=== PATIENT | male | born 1960 | race Caucasian/White ===

== ENCOUNTER → 2016-11-06 | Day surgery (SDC) | payer BC ==
[2016-10-22 13:25] VITALS: BMI 33.0
--- NOTE | 2016-10-22 13:55 | PAT Medication Instructions ---
Service Date Oct 22, 2016. Current Home Medication List Alprazolam (Xanax), 0.5 MG PO Q6H PRN for Anxiety Amlodipine (Norvasc), 5 MG PO QAM Citalopram Hydrobromide (Celexa), 1 TAB PO QAM Fenofibrate (Tricor ), 1 TAB PO QAM Hctz/Losartan (Hyzaar 25MG/100MG), 1 TAB PO QAM Omeprazole (Prilosec), 40 MG PO QAM Rosuvastatin Calcium (Crestor), 10 MG PO QAM Medication Instructions For Your Scheduled Surgery - Hold the following medications the morning of surgery: Hctz/Losartan (Hyzaar 25MG/100MG), 1 TAB PO QAM Fenofibrate (Tricor ), 1 TAB PO QAM - Take the following medications the morning of surgery with a sip of water: Rosuvastatin Calcium (Crestor), 10 MG PO QAM Omeprazole (Prilosec), 40 MG PO QAM Alprazolam (Xanax), 0.5 MG PO Q6H PRN for Anxiety (if needed) Citalopram Hydrobromide (Celexa), 1 TAB PO QAM Amlodipine (Norvasc), 5 MG PO QAM - Take the following medications as scheduled the night before surgery: Alprazolam (Xanax), 0.5 MG PO Q6H PRN for Anxiety (if needed) If you have any questions please call us at [phone] (Ann Nobles PA-C) or [phone] or [phone]
[2016-10-22 14:48] LABS: BASO % 0.5 %; BASO ABS # 0.03 K/uL (0-0.2); COMPLETE YES; HEMATOCRIT 43.2 % (42-52); IG% 0.2 %; LYMPH % 19.7 %; LYMPH ABS # 1.19 K/uL (1.2-3.4); MEAN CELL VOLUME 89.4 fL (80-100); MEAN CORPUSCULAR HEMOGLOBIN 32.7 pg (25-34); MEAN CORPUSCULAR HGB CONC 36.6 g/dl (32-36); MONO % 6.6 %; PLATELET COUNT 177 K/uL (130-400); RED BLOOD COUNT 4.83 M/uL (4.7-6.1); WHITE BLOOD COUNT 6.03 K/uL (4.8-10.8)
[2016-10-22 14:53] LABS: URINE APPEARANCE CLEAR (CLEAR); URINE BILIRUBIN NEG (NEG); URINE COLOR YELLOW; URINE NITRITE NEG (NEG); URINE PH 7.5 (4.5-7.5); URINE SPECIFIC GRAVITY 1.013 (1.000-1.030); UROBILINOGEN NEG (NEG)
[2016-10-22 14:56] LABS: MANUAL MICROSCOPIC REQUIRED? NO; REVIEW REQ? NO
[2016-10-22 15:25] LABS: BUN/CREATININE RATIO 12.4 (10-20); CALCIUM 9.2 mg/dl (8.5-10.1); POTASSIUM 3.5 mmol/L (3.5-5.1)
[~2016-11-06] VITALS: Ht 188 cm; Wt 116.2 kg
[~2016-11-06] MED LIST: ALBUT/IPRATROP 3MG/0.5MG NEB 3 ML VIAL ONE; ALFU10TA30 PO; ALPR-411 PO; AMLO-110 PO; ATROPINE SULFATE 0.1 MG/ML 5ML SYR IV PRN; CIPR1TAB11 PO; CIPROFLOXACIN / D5W 400 MG IV SCH; CITA10TA8 PO; CITA20TA9 PO; CONRAY 60% 50 ML VIAL INSTIL ONE; CRS/10 PO; DEXAMETHASONE SOD INJ 4 MG/ML VIAL ONE; EpHEDrine SULFATE INJ 50 MG/ML AMP IV PRN; FENO145T26 PO; FENTANYL CITRATE INJ 50 MCG/1 ML 2 ML VIAL IV PRN; FENTANYL CITRATE INJ 50 MCG/1 ML 2 ML VIAL ONE; FLUMAZENIL 0.1 MG/1 ML 10 ML VIAL IV PRN; GLYCOPYRROLATE INJ 0.2 MG/ML VIAL ONE; HYDROmorphone INJ 2 MG/ML SYR/VIAL IV PRN; HYZ/10015 PO; LABETALOL HCL IV 5 MG/ML 20ML IV PRN; LABETALOL HCL IV 5 MG/ML 20ML ONE; LACTATED RINGER'S 1000ML 1,000 ML IV SCH; LIDOCAINE HCL 2% 2 ML VIAL (20MG/ML) ONE; MEPERIDINE HCL 25 MG/ML CARP IV PRN; MIDAZOLAM HCL 1 MG/ML 2ML VIAL ONE; NALOXONE HCL 0.4 MG/1 ML VIAL/CARP IV PRN; NEOSTIGMINE METHYLSULFATE 5 MG/5 ML SYR ONE; OMEP40CA PO; ONDANSETRON INJ 2 MG/ML 2 ML VIAL IV PRN; ONDANSETRON INJ 2 MG/ML 2 ML VIAL ONE; OXYC-57 PO; OXYCODONE/ACETAMINOPHEN 5-325 TAB PO PRN; PHENYLEPHRINE 100MCG/ML 5ML SYR IV PRN; PROPOFOL IV EMULSION 10 MG/ML 20 ML VIAL IV ONE; PSYL0.524; PSYL48.59; ROCURONIUM BROMIDE 10 MG/ML 5 ML VIAL ONE; TAMS0.4C38 PO; prednisone PO
[2016-11-06 06:00] VITALS: BP 141/80; PULSE 87; TEMP 36.6; O2SAT 94; Ht 188 cm; Wt 116.2 kg
--- NOTE | 2016-11-06 07:26 | History & Physical Bridge Note ---
H&P Re-Evaluation Bridge Note: I have examined the patient, reviewed the History & Physical and in the interval since the performance of the History & Physical I have noted the following changes of clinical significance: No changes noted
--- NOTE | 2016-11-06 09:33 | [facility] Post Operative Brief Note ---
Immediate Operative Summary Operative Date Nov 06, 2016. Pre-Operative Diagnosis Prostate cancer Post-Operative Diagnosis Same as preoperative diagnosis Procedure(s) Performed Volume/Brachy Therapy Surgeon Dr. Gaudencio Rizzo Fresh Food Manager Surgeon(s) Dr. Cristofer Cottrell Estimated Blood Loss 0ml Findings small prostate Specimens No pathology specimens per surgeon
--- NOTE | 2016-11-06 09:37 | Discharge Instructions ---
Discharge Instructions Visit Reason for Visit: Prostate Cancer Discharge Discharge Diagnosis / Problem: prostate cancer Discharge Goals Goal(s): Therapeutic intervention Activity Recommendations Activity Limitations: per Instructions/Follow-up section (see radiation saftey sheet you get in radiation oncology/take it easy today) Anesthesia . Post Anesthesia Instructions: If you have had General Anesthesia or IV Sedation: * Do not drive today. * Resume driving when surgeon permits. * Do not make important decisions or sign legal documents today. * Call surgeon for: 1. Temperature elevations greater than 101 degrees F. 2. Uncontrollable pain. 3. Excessive bleeding. 4. Persistent nausea and vomiting. 5. Medication intolerance (nausea, vomiting or rash). * For nausea and vomiting use only clear liquids such as: tea, soda, bouillon until nausea subsides, then gradually increase diet as tolerated. * If you have any concerns or questions, call your surgeon's office. If physician is unavailable and it is an emergency, call 911 or go to the nearest emergency room. . Diet Recommendations Recommended Home Diet: resume previous diet Procedures Procedures Performed: Volume/Brachy Therapy Pending Studies Studies pending at discharge: yes List of pending studies: pt to go to radiation oncology befor going home Medical Emergencies . Who to Call and When: Medical Emergencies: If at any time you feel your situation is an emergency, please call 911 immediately. . Non-Emergent Contact Non-Emergency issues call your: Urologist . . "Provider Documentation" section prepared by Gaudencio Rizzo. [facility] Drug Monitoring Program Search Results: patient reviewed within database
--- NOTE | 2016-11-06 09:39 | DIAGNOSTIC IMAGING REPORT ---
FLUOROSCOPIC IMAGE OF THE PELVIS CLINICAL HISTORY: BRACHYTHERAPY FLUOROSCOPY TIME: 2 seconds. FINDINGS: A single fluoroscopic image demonstrates a catheter within the bladder with contrast within the bladder. There are brachytherapy seeds which project over the expected location of the prostate. IMPRESSION: Fluoroscopic image demonstrating placement of brachytherapy seeds. Electronically signed by: Lucius Sweeney M.D. 11/06/2016 9:37 AM Dictated Date/Time: 11/06/2016 9:36 AM
--- NOTE | 2016-11-06 10:07 | Anesthesiology Progress Note ---
Anesthesia Post Op Note Date & Time Nov 06, 2016 at 10:06 Vital Signs Pain Intensity: 0 Vital Signs Past 12 Hours Date Time Temp Pulse Resp B/P Pulse Ox O2 Delivery O2 Flow Rate FiO2 11/06/16 10:00 63 16 120/78 92 Room Air 11/06/16 09:51 62 16 130/78 97 Mask 10 11/06/16 09:41 67 16 111/69 100 Mask 10 11/06/16 09:33 36.8 73 16 123/84 99 Mask 10 11/06/16 06:00 36.6 87 18 141/80 94 Room Air Notes Mental Status: alert / awake / arousable, participated in evaluation Pt Amnestic to Procedure: Yes Nausea / Vomiting: adequately controlled Pain: adequately controlled Airway Patency, RR, SpO2: stable & adequate BP & HR: stable & adequate Hydration State: stable & adequate Anesthetic Complications: no major complications apparent
[2016-11-06 10:15] VITALS: BP 111/69; PULSE 61; TEMP 36.6; O2SAT 98
[2016-11-06 10:45] VITALS: BP 121/70; PULSE 56; TEMP 36.6; O2SAT 98
[2016-11-06 11:15] VITALS: BP 110/64; PULSE 64; TEMP 36.7; O2SAT 97
--- NOTE | 2016-11-08 13:22 | OPERATIVE REPORT ---
DATE OF OPERATION: 11/06/2016 PREOPERATIVE DIAGNOSIS: Biopsy stage T2c, PSA 4.65, [place] score 3+4 adenocarcinoma of the prostate. POSTOPERATIVE DIAGNOSIS: Biopsy stage T2c, PSA 4.65, Helen score 3+4 adenocarcinoma of the prostate. PROCEDURE: Transperineal prostate brachytherapy with live dosimetry. FINDINGS: 16.5 mL gland. SURGEON: Dr. Rizzo. PHYSICIST: Wm Ernandez. RADIATION ONCOLOGIST: Dr. Paris. ANESTHESIA: General. DRAINS: Temporary Harrison catheter in the bladder. COMPLICATIONS: None. SPECIMENS: None. INDICATIONS: The patient has been diagnosed with an adenocarcinoma of the prostate and has elected to undergo transperineal brachytherapy as part of his treatment and is being brought in now for the procedure. OPERATION AND FINDINGS: The patient was correctly identified and brought to the outpatient surgery suite. After the induction of an adequate level of anesthesia, the patient was placed in the dorsal lithotomy position. The patient's lower abdomen, genitalia, and perineum were then prepped with Hibiclens. A Harrison catheter was then inserted per the urethra into the bladder using usual sterile technique and the urine was drained and then 100 mL of mixture of saline and iodinated contrast material was instilled through the Harrison into the bladder. Aerated gel was then placed within the lumen of the catheter, and the catheter was then plugged. The patient's scrotum was then taped upward using a Steri-Drape to keep it out of the way of the perineum. A transrectal ultrasound probe was then gently inserted into the patient's rectum and attached to the brachytherapy sled, and adjustments were made to the brachytherapy sled using the template projected on the ultrasound screen to get the transrectal probe and the image of the prostate into the proper position. After getting the probe adjusted properly, the prostate was scanned from its base to its apex with the images being transmitted to the treatment planning computer. While the radiation oncologist and physicist were performing a live implant plan, empty needles were placed through the template and positioned in the prostate around the entire periphery of the prostate. Each needle was spaced approximately 1 cm apart from its neighbor and again this was done circumferentially around the prostate. At this point, Dr. Paris used a [place] applicator to place the seeds into the prostate through these peripherally placed needles with the number and position of the seeds based on the plan that had just been created. This was done live so live dosimetry was being calculated with each seed placement. After the peripheral seeds were placed and all the peripheral needles removed, the radiation oncologist and physicist then planned for the central needles and these needles were placed in their proper positions based on the plan. After completing this portion, again the case was turned over to Dr. Paris for placement of the central seeds. A total number of 14 needles were used to implant 43 CS 131 seeds. After completing the implant, a fluoroscopic image was taken to check to make sure that there were no seeds placed within the bladder and a final picture was taken of this. One final inspection was then done looking at the plan and the seed implant and after completion of this final inspection the transrectal probe was removed. The patient's bladder was drained through the Harrison catheter. A Joy counter was used to check for any radioactivity remaining in the needles and in the urine. The Harrison catheter was then left indwelling. The patient's perineum was then washed and dried, and an antibiotic ointment was applied. The patient tolerated the procedure well and was transferred to the Recovery Room in stable condition. I attest to the content of the Intraoperative Record and any orders documented therein. Any exceptio ns are noted below.
== END | disposition home or self-care (01) ==
LOC: C.ACU 05:43
PROVIDERS: ATTEND Urology
DX: C61 Malignant neoplasm of prostate (principal); R97.20 Elevated prostate specific antigen [PSA]; E78.00 Pure hypercholesterolemia, unspecified; I10 Essential (primary) hypertension; F17.200 Nicotine dependence, unspecified, uncomplicated; Z83.3 Family history of diabetes mellitus; Z82.49 Family history of ischemic heart disease and other diseases of the circulatory system

== ENCOUNTER → 2016-11-13 | Outpatient (CLI) | payer BC ==
[~2016-11-13] MED LIST changes: -ALBUT/IPRATROP 3MG/0.5MG NEB 3 ML VIAL ONE; -ATROPINE SULFATE 0.1 MG/ML 5ML SYR IV PRN; -CIPROFLOXACIN / D5W 400 MG IV SCH; -CONRAY 60% 50 ML VIAL INSTIL ONE; -DEXAMETHASONE SOD INJ 4 MG/ML VIAL ONE; -EpHEDrine SULFATE INJ 50 MG/ML AMP IV PRN; -FENTANYL CITRATE INJ 50 MCG/1 ML 2 ML VIAL IV PRN; -FENTANYL CITRATE INJ 50 MCG/1 ML 2 ML VIAL ONE; -FLUMAZENIL 0.1 MG/1 ML 10 ML VIAL IV PRN; -GLYCOPYRROLATE INJ 0.2 MG/ML VIAL ONE; -HYDROmorphone INJ 2 MG/ML SYR/VIAL IV PRN; -LABETALOL HCL IV 5 MG/ML 20ML IV PRN; -LABETALOL HCL IV 5 MG/ML 20ML ONE; -LACTATED RINGER'S 1000ML 1,000 ML IV SCH; -LIDOCAINE HCL 2% 2 ML VIAL (20MG/ML) ONE; -MEPERIDINE HCL 25 MG/ML CARP IV PRN; -MIDAZOLAM HCL 1 MG/ML 2ML VIAL ONE; -NALOXONE HCL 0.4 MG/1 ML VIAL/CARP IV PRN; -NEOSTIGMINE METHYLSULFATE 5 MG/5 ML SYR ONE; -ONDANSETRON INJ 2 MG/ML 2 ML VIAL IV PRN; -ONDANSETRON INJ 2 MG/ML 2 ML VIAL ONE; -OXYCODONE/ACETAMINOPHEN 5-325 TAB PO PRN; -PHENYLEPHRINE 100MCG/ML 5ML SYR IV PRN; -PROPOFOL IV EMULSION 10 MG/ML 20 ML VIAL IV ONE; -ROCURONIUM BROMIDE 10 MG/ML 5 ML VIAL ONE
== END | disposition home or self-care (01) ==
LOC: C.ONC 09:06
PROVIDERS: ATTEND Radiology Radiation Oncology
DX: Z51.0 Encounter for antineoplastic radiation therapy (principal); C61 Malignant neoplasm of prostate

== ENCOUNTER → 2017-02-27 | Outpatient (CLI) | payer BC ==
[~2017-02-27] MED LIST changes: +ALFU10TA2 PO; -ALFU10TA30 PO; -CIPR1TAB11 PO; +DIPH-437 PO; +GABA1CAP4 PO; +LEVE500T13 PO; +NAPR1TAB9 PO; -OXYC-57 PO; -TAMS0.4C38 PO; -prednisone PO
[2017-02-27 14:46] VITALS: BP 120/78; PULSE 72; TEMP 36.7; O2SAT 94
--- NOTE | 2017-02-27 15:37 | Radiation Oncology Follow-Up ---
Radiation Oncology Follow-Up Date of Visit February 27, 2017. Reason For Visit One-month follow-up and cancer survivorship care plan Radiation Completion Date prostate seed implant 11/06/16,IMRT/IGRT 01/28/17 Diagnosis (1) Prostate cancer Status: Acute Onset Date: 07/30/2016 Location: both lobes of the prostate Histology Subtype: adenocarcinoma Stage: ll (B) Permanent Comment: STAGING: Prostate, adenocarcinoma, triny 3 + 4, PSA 4.65, cT1c, group IIA Prostate gland size by TRUS - 25.1 TREATMENT: 1. Status post prostate seed implant as boost 11/06/2016 43 seeds were placed 8500 cGy 2. Status post completion of IMRT/IGRT completed 01/28/2017 received 4500 cGy Last Edited By: Tricia Solorio on Feb 04, 2017 14:11 History of Present Illness Mr. Hammonds is a 56-year-old gentleman who presents with an elevated PSA of 4.65 on 07/12/2016. The patient was then subsequently referred to Dr. Timothy Barakat who recommended a transrectal ultrasound-guided biopsy of the prostate gland. The patient underwent a transrectal ultrasound-guided biopsy on 07/30/2016 which did reveal a prostate gland that measured 25.1 mL. The pathology revealed prostate adenocarcinoma involving 5/15 cores. [place] 3+4 disease was noted in 2 cores and there was 30% involvement of [place] 4 disease in the cores. No perineural invasion was identified. [place] 3+3 [address] was also noted[address] Dr. Barakat has referred the patient was for consideration of radiation therapy. The patient will also meet again with Dr. Barakat discuss the role of surgical resection. Overall, the patient is doing relatively well. He states his urinary obstructive IPSS score is 2/35. His EPIC QOL score is 10/60. He states that he is sexually active however sometimes he does have issues with impotency. He denies any active bleeding from hemorrhoids. He denies any history of inflammatory bowel disease. Denies any history of TURP. Patient ultimately made a decision to undergo prostate seed implant as boost followed by IMRT IGRT. The implant was performed on 11/06/2016. Postoperatively he had increased urinary symptoms and was in contact with Dr. Rizzo's office. He had been on Uroxatral this was changed to tamsulosin. This was then increased to twice a day. He unfortunately developed hives over the mid abdominal area. The tamsulosin was discontinued. He took Benadryl and this resolved without difficulty. He was then placed back on Uroxatral once daily. His AUA's score sheets were reviewed today. On November 11 the AUA was 17. On November 18 AUA score of 17. On November 25 AUA score of 19. On December 02 AUA score was 17. And today December 06 his AUA score is 14. He completed and expanded prostate cancer index composite for clinical practice and gave a score of 0 of 12 and urinary incontinence symptoms. He gave a score of 6 of 12 and urinary irritation symptoms. He gave a score of 0 12 bowel symptoms. He gave a score of 3 of 12 and sexual symptoms. He gave a score of 3 of 12 and hormonal vitality symptoms. His total was 9 of 60. He is also been having some back discomfort as well as groin discomfort. He has a cough which he associates with smoking cigars. He'll undergo CT simulation to begin external beam therapy. He completed IMRT/IGRT 01/28/2017. He received 4500 cGy. Interim History He's been doing well over this past month. The urinary symptoms at the end of treatment have steadily been improving. He has minimal dysuria. This fatigue which had been quite moderate at the end of treatment has steadily improved. He continues to have some bowel symptoms. He does note that taking the Metamucil helps to relieve frequency of bowel movements. If he forgets to use Metamucil he will notice a difference. His AUA score today was 10. This is improved from the end of treatment were the AUA score was 16. He completed expanded prostate cancer index composite for clinical practice and gave a score of 2 of 12 and urinary incontinence symptoms. He gave a score of 3 of 12 urinary irritation symptoms. He was score of 4 of 12 in bowel symptoms. He gave a score of 4 of 8 and sexual symptoms. He gave a score of 2 of 12 and hormonal vitality symptoms. His total was 15 of 56. He continues on Uroxatral. Allergies Coded Allergies: BEE STING (Verified Allergy, Severe, ANAPHYLAXIS, 11/06/16) Tamsulosin (Verified Adverse Reaction, Intermediate, Hives , 12/06/16) Home Medications Scheduled Alfuzosin Hcl (Uroxatral), 10 MG PO DAILY Amlodipine (Norvasc), 5 MG PO QAM Citalopram Hydrobromide (Celexa), 1 TAB PO DAILY Citalopram Hydrobromide (Celexa), 1 TAB PO DAILY Fenofibrate (Tricor ), 1 TAB PO QAM Hctz/Losartan (Hyzaar 25MG/100MG), 1 TAB PO QAM Omeprazole (Prilosec), 40 MG PO QAM Psyllium (Metamucil), 1 TSP DAILY Rosuvastatin Calcium (Crestor), 10 MG PO QAM Scheduled PRN Alprazolam (Xanax), 0.5 MG PO Q6H PRN for Anxiety Review of Systems Gastrointestinal: Symptoms: WNL Oral: Symptoms: No Problems Respiratory: Symptoms: WNL Urinary: Symptoms: Nocturia Comments: nocturiax1-2x occ burning, Skin: Symptoms: No Problems Physical Exam Vital Signs Date Time Temp Pulse Resp B/P Pulse Ox O2 Delivery O2 Flow Rate FiO2 02/27/17 14:46 36.7 72 20 120/78 94 Fatigue: None General Appearance: no apparent distress Eyes: normal inspection, EOMI ENT: normal ENT inspection, hearing grossly normal Respiratory/Chest: lungs clear, no respiratory distress, no accessory muscle use Cardiovascular: regular rate, rhythm, no gallop, no murmur Extremities: no pedal edema Neurologic/Psychiatric: no motor/sensory deficits, alert, normal mood/affect Skin: warm/dry Laboratory Studies Test 12/06/16 15:25 02/27/17 15:12 Urine Color YELLOW Urine Appearance CLEAR (CLEAR) Urine pH 7.0 (4.5-7.5) Urine Specific [place] 1.018 (1.000-1.030) Urine Protein NEG (NEG) Urine Glucose (UA) NEG (NEG) Urine Ketones NEG (NEG) Urine Occult Blood NEG (NEG) Urine Nitrite NEG (NEG) Urine Bilirubin NEG (NEG) Urine Urobilinogen POS (NEG) Urine Leukocyte Esterase TRACE (NEG) Urine WBC (Auto) 1-5 /hpf (0-5) Urine RBC (Auto) 0-4 /hpf (0-4) Urine Hyaline Casts (Auto) 0 /lpf (0-5) Urine Epithelial Cells (Auto) 0-5 /lpf (0-5) Urine Bacteria (Auto) NEG (NEG) Assessment & Plan Plan: The PSA was drawn today. He'll be notified as to results. Continue follow-up with Dr. Rizzo. He does have an appointment with him in April. He 'll have a PSA prior to this visit. He will continue to take the Metamucil on a regular basis. We asked her to return to our office in 6 months. He may call if he has any questions or concerns. Today we completed a cancer survivorship care plan. A copy of the document was given to the patient. He understands that he is moving will be followed with recheck PSAs. This also reviewed possible long-term side effects. Please see the cancer survivorship care plan document for further information. Total Time In Follow-Up I spent 15 minutes speaking to the patient and performing examination. I spent 20 minutes reviewing information, preparing the survivorship document, and completing this note. Copy To Matheus Riojas M.D.; Gaudencio Rizzo MD; Timothy Barakat M.D.
== END | disposition home or self-care (01) ==
LOC: C.ONC 14:33
PROVIDERS: ATTEND Physician Assistant Medical
DX: Z08 Encounter for follow-up examination after completed treatment for malignant neoplasm (principal); Z92.3 Personal history of irradiation; Z85.46 Personal history of malignant neoplasm of prostate

== ENCOUNTER → 2017-05-06 | Outpatient (CLI) | payer BC ==
[~2017-05-06] MED LIST changes: -ALFU10TA2 PO; +ALFU10TA30 PO; -DIPH-437 PO; -GABA1CAP4 PO; -LEVE500T13 PO; -NAPR1TAB9 PO; -PSYL0.524
--- NOTE | 2017-05-10 10:54 | CODING QUERY MEDICAL NECESSITY ---
SUPPORTING DIAGNOSIS NEEDED A supporting diagnosis is required for the test/procedure performed on this patient in order for us to be reimbursed by the patient's insurance. Please provide a supporting diagnosis for the following test/procedure listed below next to the test name along with your signature. *If there is no additional diagnosis for this patient that would support the following test/procedure please document that below next to the test/procedure. Test(s)/Procedure(s) that require a supporting diagnosis: * PSA DIAGNOSIS: Provider Signature: Date: Thank you Dalila Gant [employer] Once completed, please kindly fax back to [phone] For questions please call [phone]
== END | disposition home or self-care (01) ==
LOC: C.LABPBG 11:04
PROVIDERS: ATTEND Urology
DX: R39.9 Unspecified symptoms and signs involving the genitourinary system (principal); C61 Malignant neoplasm of prostate

== ENCOUNTER 2017-08-06 21:30 | Inpatient (IN) | payer BC ==
[~2017-08-06] VITALS: Ht 188 cm; Wt 112.0 kg
[~2017-08-06 21:30] MED LIST changes: +ALFU10TA2 PO; -ALFU10TA30 PO
[2017-08-06] MEDS ORDERED: SODIUM CHLORIDE 0.9% 1000ML 1,000 ML IV SCH (21:45)
--- NOTE | 2017-08-06 22:04 | DIAGNOSTIC IMAGING REPORT ---
ADDENDUM The patient has had a recent history of trauma. Therefore, the slight prominence of the right high convexity extra-axial space could represent a tiny subacute subdural hematoma. A follow-up MRI is recommended for confirmation. These findings were discussed with Dr. Carmona 10:26 PM on 08/06/2017. Electronically signed by: Luciano Chaney M.D. 08/06/2017 10:28 PM Dictated Date/Time: 08/06/2017 10:27 PM ORIGINAL REPORT HEAD CT NONCONTRAST CT DOSE: HISTORY: Stroke symptoms. TECHNIQUE: Multiaxial CT images of the head were performed without the use of intravenous contrast. Automated exposure control was utilized for this study. A dose lowering technique was utilized adhering to the principles of ALARA. Comparison: None. Findings: 1.9 cm retention cyst within the left maxillary sinus. Otherwise, the paranasal sinuses and mastoid air cells are clear. The calvarium and skull base are intact. The ventricles and sulci are within normal limits. There is no mass, hematoma, midline shift, or acute infarct. Minimal prominence of the right extra-axial space at the high convexity. However, this does not demonstrate increased density to suggest an acute subdural hematoma. Therefore, this is likely chronic. Impression: No acute intracranial abnormality. Electronically signed by: Luciano Chaney M.D. 08/06/2017 10:03 PM Dictated Date/Time: 08/06/2017 9:57 PM
[2017-08-06 22:08] LABS: BASO % 0.4 %; BASO ABS # 0.03 K/uL (0-0.2); COMPLETE YES; EOS % 2.4 %; HEMATOCRIT 40.3 % (42-52); IG% 0.3 %; LYMPH % 13.4 %; LYMPH ABS # 1.01 K/uL (1.2-3.4); MEAN CELL VOLUME 91.6 fL (80-100); MEAN CORPUSCULAR HEMOGLOBIN 32.5 pg (25-34); MEAN CORPUSCULAR HGB CONC 35.5 g/dl (32-36); MEAN PLATELET VOLUME 9.4 fL (7.4-10.4); MONO % 11.6 %; NEUT % 71.9 %; PLATELET COUNT 155 K/uL (130-400); WHITE BLOOD COUNT 7.56 K/uL (4.8-10.8)
[2017-08-06 22:18] LABS: PARTIAL THROMBOPLASTIN RATIO 1.3; PROTHROMBIN TIME (PATIENT) 10.9 SECONDS (9.0-12.0)
[2017-08-06 22:23] LABS: ISTAT CREATININE 0.8 mg/dl (0.6-1.3); ISTAT HEMOGLOBIN 13.9 g/dl (14.0-18.0); ISTAT IONIZED CALCIUM 1.22 mmol/l (1.12-1.32)
--- NOTE | 2017-08-06 22:24 | DIAGNOSTIC IMAGING REPORT ---
CERVICAL SPINE CT CT DOSE: 1168.17 mGy.cm HISTORY: fall, neck pain TECHNIQUE: Multiaxial CT images of the cervical spine were performed and reformatted in the sagittal and coronal plane without the use of contrast. A dose lowering technique was utilized adhering to the principles of ALARA. COMPARISON: None. FINDINGS: No fractures. No subluxation. Prevertebral soft tissues and the C1-C2 interval are intact. No pneumothorax. IMPRESSION: No fractures within the cervical spine. Electronically signed by: Luciano Chaney M.D. 08/06/2017 10:22 PM Dictated Date/Time: 08/06/2017 10:15 PM
[2017-08-06 22:25] LABS: BLOOD UREA NITROGEN 11 mg/dl (7-18); BUN/CREATININE RATIO 12.1 (10-20); CARBON DIOXIDE 23 mmol/L (21-32); CHLORIDE 99 mmol/L (98-107); GLUCOSE 111 mg/dl (70-99); POTASSIUM 3.1 mmol/L (3.5-5.1); SODIUM 132 mmol/L (136-145)
[2017-08-06 22:30] LABS: CKMB/CK RATIO 0.2 (0-3.0)
[2017-08-06] MEDS ORDERED: DIPH-437 PO (23:08)
[2017-08-06] MEDS ORDERED: NAPR1TAB9 PO (23:08)
[2017-08-06 23:31] LABS: URINE APPEARANCE CLEAR (CLEAR); URINE BILIRUBIN NEG (NEG); URINE COLOR YELLOW; URINE EPITHELIAL CELL AUTO 0-5 /lpf (0-5); URINE NITRITE NEG (NEG); URINE PH 6.5 (4.5-7.5); URINE SPECIFIC GRAVITY 1.007 (1.000-1.030); UROBILINOGEN NEG (NEG); ZZUR CULT IF INDIC CLEAN CATCH NO
[2017-08-06] MEDS ORDERED: SODIUM CHLORIDE 0.9% 1000ML 1,000 ML IV STA ×2 (23:35)
[2017-08-06 23:36] LABS: MANUAL MICROSCOPIC REQUIRED? NO; REVIEW REQ? NO
[2017-08-06] MEDS ORDERED: POTASSIUM CHLORIDE 10 MEQ TABCR PO STA (23:39)
[2017-08-06] MEDS ORDERED: ACETAMINOPHEN 500 MG TAB PO STA (23:48)
[2017-08-07] VITALS (8 sets, daily range): BP systolic 114–146; BP diastolic 74–88; PULSE 63–72; TEMP 36.6–37.4; O2SAT 93–98; Ht 188 cm; Wt 112.0 kg
--- NOTE | 2017-08-07 01:57 | EMERGENCY ROOM VISIT NOTE ---
History Report prepared by Elizabeth: Tanisha Teran Under the Supervision of: Dr. Douglas Carmona M.D. First contact with patient: 21:45 Chief Complaint: STROKE SYMPTOMS Stated Complaint: FELL, LEANING TOWARDS ONE SIDE, TREMORS LT SIDE Nursing Triage Summary: patient with left arm drift and leaning the the left side for about an half an hour. states he fell down the steps on saturday and has been having right shoulder pain. but today started with shaking of the left arm and now has a leaning to the left with sitting History of Present Illness The patient is a 57 year old male who presents to the Emergency Room with complaints of persistent left arm weakness starting around 30 minutes ago. Around 1200, he had an episode of being unable to control his left arm which resolved. A little while later, he had another similar episode which his son witnessed. 30 minutes ago, the symptoms started again. His left arm feels numb and he is unable to steady his left arm. He notes that he fell 4 days ago and hit his head. He had right shoulder pain and neck pain after the fall. The day after the fall, he had a "splitting headache" which eventually resolved. He currently has a headache again. He is nauseous. He denies any history of heart, lung, or brain problems. He has just finished being treated for prostate cancer. He is not on any blood thinners. He has a history of anxiety and hypertension. Pt denies LOC, fevers, chills, diaphoresis, visual changes, chest pain, breathing difficulties, vomiting, abdominal pain, back pain, melena, hematochezia, urinary symptoms, lymphadenopathy, rash, or other complaints. Source of History: patient, family Onset: 30 minutes ago Position: arm (left) Quality: other (weakness) Timing: other (persistent) Associated Symptoms: + headache, + neck pain, + nausea Review of Systems See HPI for pertinent positives and negatives. A total of ten systems were reviewed and were otherwise negative. Past Medical & Surgical Medical Problems: (1) Anxiety (2) Diverticulosis (3) Hyperlipidemia (4) Hypertension (5) Prostate cancer Surgical Problems: (1) History of cholecystectomy Family History No pertinent family history stated. Social History Smoking Status: Current Every Day Smoker Alcohol Use: occasionally Drug Use: none Marital Status: Housing Status: lives with family Occupation Status: retired Current/Historical Medications Scheduled Amlodipine (Norvasc), 5 MG PO QAM Citalopram Hydrobromide (Celexa), 1 TAB PO DAILY Fenofibrate (Tricor ), 1 TAB PO QAM Hctz/Losartan (Hyzaar 25MG/100MG), 1 TAB PO QAM Naproxen (Aleve), 220 MG PO BID Omeprazole (Prilosec), 40 MG PO QAM Psyllium (Metamucil), 1 TSP DAILY Rosuvastatin Calcium (Crestor), 10 MG PO QAM Scheduled PRN Acetaminophen/Diphenhydramine (Tylenol Pm), 2 TAB PO HS PRN for Sleep Alprazolam (Xanax), 0.5 MG PO Q6H PRN for Anxiety Allergies Coded Allergies: BEE STING (Verified Allergy, Severe, ANAPHYLAXIS, 08/06/17) Tamsulosin (Verified Adverse Reaction, Intermediate, Hives , 08/06/17) Physical Exam Vital Signs Date Time Temp Pulse Resp B/P (MAP) Pulse Ox O2 Delivery O2 Flow Rate FiO2 08/07/17 01:51 65 08/07/17 01:48 36.9 69 16 117/77 98 Room Air 08/07/17 00:00 69 16 146/95 98 Room Air 08/06/17 23:45 69 19 134/98 96 Room Air 08/06/17 23:30 72 17 129/91 96 Room Air 08/06/17 23:16 71 17 148/85 98 Room Air 08/06/17 23:00 69 19 135/97 98 Room Air 08/06/17 22:50 67 21 97 08/06/17 22:45 130/91 08/06/17 22:35 74 21 96 08/06/17 22:30 75 17 133/93 98 08/06/17 22:25 73 26 96 08/06/17 22:20 75 22 96 08/06/17 22:15 126/86 08/06/17 22:07 95 Room Air 08/06/17 22:05 74 21 08/06/17 22:02 80 08/06/17 22:00 81 31 143/90 08/06/17 21:58 145/89 08/06/17 21:58 74 18 145/89 97 Room Air 08/06/17 21:38 36.9 82 20 131/94 96 Room Air Physical Exam GENERAL: Awake, alert, uncomfortable and anxious appearing, mild distress HENT: Normocephalic, atraumatic. TM's normal. Oropharynx unremarkable. EYES: PERRL. EOMI. Normal conjunctiva. Sclera non-icteric. NECK: Supple. No nuchal rigidity. FROM. No JVD or bruit. RESPIRATORY: CTA CARDIAC: RRR. No murmur. ABDOMEN: Soft, non distended. No tenderness to palpation. No rebound or guarding. No masses. RECTAL: Deferred. MUSCULOSKELETAL: Unremarkable. No edema. No discoloration. Gross motor strength symmetric. NEURO: Cranial nerves 2-12 grossly intact. Normal sensorium. No sensory or motor deficits noted. Speech normal. Mild left arm drift. SKIN: No rash or jaundice noted. LYMPH: No adenopathy. Medical Decision & Procedures ER Provider Diagnostic Interpretation: Radiology results as stated below per my review and radiologist interpretation: ADDENDUM The patient has had a recent history of trauma. Therefore, the slight prominence of the right high convexity extra-axial space could represent a tiny subacute subdural hematoma. A follow-up MRI is recommended for confirmation. These findings were discussed with Dr. Carmona 10:26 PM on 08/06/2017. Electronically signed by: Luciano Chaney M.D. 08/06/2017 10:28 PM Dictated Date/Time: 08/06/2017 10:27 PM ORIGINAL REPORT HEAD CT NONCONTRAST CT DOSE: HISTORY: Stroke symptoms. TECHNIQUE: Multiaxial CT images of the head were performed without the use of intravenous contrast. Automated exposure control was utilized for this study. A dose lowering technique was utilized adhering to the principles of ALARA. Comparison: None. Findings: 1.9 cm retention cyst within the left maxillary sinus. Otherwise, the paranasal sinuses and mastoid air cells are clear. The calvarium and skull base are intact. The ventricles and sulci are within normal limits. There is no mass, hematoma, midline shift, or acute infarct. Minimal prominence of the right extra-axial space at the high convexity. However, this does not demonstrate increased density to suggest an acute subdural hematoma. Therefore, this is likely chronic. Impression: No acute intracranial abnormality. Electronically signed by: Luciano Chaney M.D. 08/06/2017 10:03 PM Dictated Date/Time: 08/06/2017 9:[address] DOSE: 1168.17 mGy.cm HISTORY: fall, neck pain TECHNIQUE: Multiaxial CT images of the cervical spine were performed and reformatted in the sagittal and coronal plane without the use of contrast. A dose lowering technique was utilized adhering to the principles of ALARA. COMPARISON: None. FINDINGS: No fractures. No subluxation. Prevertebral soft tissues and the C1-C2 interval are intact. No pneumothorax. IMPRESSION: No fractures within the cervical spine. Electronically signed by: Luciano Chaney M.D. 08/06/2017 10:22 PM Dictated Date/Time: 08/06/2017 10:15 PM Laboratory Results 08/06/17 21:53 Red Blood Count 4.40, Mean Corpuscular Volume 91.6, Mean Corpuscular Hemoglobin 32.5, Mean Corpuscular Hemoglobin Concent 35.5, Mean Platelet Volume 9.4, Neutrophils (%) (Auto) 71.9, Lymphocytes (%) (Auto) 13.4, Monocytes (%) (Auto) 11.6, Eosinophils (%) (Auto) 2.4, Basophils (%) (Auto) 0.4, Neutrophils # (Auto ) 5.44, Lymphocytes # (Auto) 1.01, Monocytes # (Auto) 0.88, Eosinophils # (Auto ) 0.18, Basophils # (Auto) 0.03 08/06/17 21:53 Test 08/06/17 21:53 08/06/17 22:05 08/06/17 22:08 08/06/17 23:15 White Blood Count 7.56 K/uL (4.8-10.8) Red Blood Count 4.40 M/uL (4.7-6.1) Hemoglobin 14.3 g/dL (14.0-18.0) Hematocrit 40.3 % (42-52) Mean Corpuscular Volume 91.6 fL (80-100) Mean Corpuscular Hemoglobin 32.5 pg (25-34) Mean Corpuscular Hemoglobin Concent 35.5 g/dl (32-36) Platelet Count 155 K/uL (130-400) Mean Platelet Volume 9.4 fL (7.4-10.4) Neutrophils (%) (Auto) 71.9 % Lymphocytes (%) (Auto) 13.4 % Monocytes (%) (Auto) 11.6 % Eosinophils (%) (Auto) 2.4 % Basophils (%) (Auto) 0.4 % Neutrophils # (Auto) 5.44 K/uL (1.4-6.5) Lymphocytes # (Auto) 1.01 K/uL (1.2-3.4) Monocytes # (Auto) 0.88 K/uL (0.11-0.59) Eosinophils # (Auto) 0.18 K/uL (0-0.5) Basophils # (Auto) 0.03 K/uL (0-0.2) RDW Standard Deviation 42.7 fL (36.4-46.3) RDW Coefficient of Variation 12.7 % (11.5-14.5) Immature Granulocyte % (Auto) 0.3 % Immature Granulocyte # (Auto) 0.02 K/uL (0.00-0.02) Prothrombin Time 10.9 SECONDS (9.0-12.0) Prothromb Time International Ratio 1.0 (0.9-1.1) Activated Partial Thromboplast Time 33.1 SECONDS (21.0-31.0) Partial Thromboplastin Ratio 1.3 Est Creatinine Clear Calc Drug Dose 118.0 ml/min Estimated GFR () 108.0 Estimated GFR (Non- 93.2 BUN/Creatinine Ratio 12.1 (10-20) Calcium Level 10.0 mg/dl (8.5-10.1) Total Creatine Kinase 439 U/L (39-308) Creatine Kinase MB 1.0 ng/ml (0.5-3.6) Creatine Kinase MB Ratio 0.2 (0-3.0) Troponin I < 0.015 ng/ml (0-0.045) Bedside Prothrombin Time INR 1.1 (0.9-1.1) Bedside Glucose 130 mg/dl (70-99) Bedside Hemoglobin 13.9 g/dl (14.0-18.0) Bedside Hematocrit 41 % (42-52) Bedside Sodium 135 mEq/L (135-144) Bedside Potassium 3.1 mEq/L (3.3-5.0) Bedside Chloride 98 mEq/L (101-112) Bedside Total CO2 22 mEq/l (24-31) Anion Gap 19.0 mmol/L (16-25) Bedside Blood Urea Nitrogen 10 mg/dl (7-18) Bedside Creatinine 0.8 mg/dl (0.6-1.3) Bedside Glucose (other) 113 mg/dl (70-99) Bedside Ionized Calcium (Kathy) 1.22 mmol/l (1.12-1.32) Urine Color YELLOW Urine Appearance CLEAR (CLEAR) Urine pH 6.5 (4.5-7.5) Urine Specific [place] 1.007 (1.000-1.030) Urine Protein NEG (NEG) Urine Glucose (UA) NEG (NEG) Urine Ketones NEG (NEG) Urine Occult Blood 1+ (NEG) Urine Nitrite NEG (NEG) Urine Bilirubin NEG (NEG) Urine Urobilinogen NEG (NEG) Urine Leukocyte Esterase NEG (NEG) Urine WBC (Auto) 1-5 /hpf (0-5) Urine RBC (Auto) 0-4 /hpf (0-4) Urine Hyaline Casts (Auto) 0 /lpf (0-5) Urine Epithelial Cells (Auto) 0-5 /lpf (0-5) Urine Bacteria (Auto) NEG (NEG) Laboratory results reviewed by me Medications Administered Medications (Trade) Dose Ordered Sig/Loyda Route Start Time Stop Time Status Last Admin Dose Admin Sodium Chloride 1,000 ml @ 50 mls/hr Q20H IV 08/06/17 21:45 08/06/17 23:36 DC 08/06/17 22:17 50 MLS/HR Sodium Chloride 1,000 ml @ 999 mls/hr Q1H1M STAT IV 08/06/17 23:35 08/07/17 00:35 DC 08/06/17 22:45 999 MLS/HR Sodium Chloride 1,000 ml @ 75 mls/hr [id number] STAT IV 08/06/17 23:35 08/07/17 12:54 08/06/17 23:30 75 MLS/HR Potassium Chloride (Klor-Con M10) 20 meq NOW STAT PO 08/06/17 23:39 08/06/17 23:40 DC 08/06/17 23:56 20 MEQ Acetaminophen (Tylenol Tab) 1,000 mg NOW STAT PO 08/06/17 23:48 08/06/17 23:49 DC 08/06/17 23:56 1,000 MG ECG Indication: other (stroke symptoms) Rate (beats per minute): 74 Rhythm: normal sinus Findings: no acute ischemic change, no ectopy ED Course 2142: The patient was evaluated in room A1. A complete history and physical exam was performed. 5: NSS 1000 ml @ 50 mls/hr IV. 2211: I discussed the patient's case with Dr. Diaz, [facility] Neurology telemedicine. He will evaluate the patient through telestroke. 2222: I reevaluated the patient. I updated them about Dr. Diaz's plan. 2230: I discussed the patient's case with Dr. Chaney, the reading radiologist. He states that the patient might have a possible subdural. 2234: I reevaluated the patient. 2251: I spoke with Dr. Diaz. He has evaluated the patient. He agrees that since the radiologist is questioning subdural, he says to get the MRI before aspirin. He recommends MRI combo. He also recommended a fluid bolus and changing to 75 an hour. 2319: I reevaluated the patient. His symptoms have resolved. 2335: NSS 1000 ml @ 75 mls/hr IV, NSS 1000 ml @ 999 mls/hr IV. 2339: Potassium Chloride 20 meq PO. 2348: Acetaminophen 1000 mg PO. Medical Decision Triage Nursing notes reviewed. The patient's presentation and history were concerning for strokelike symptoms Etiologies such as CVA, TIA, metabolic, infection, hypo/hyperglycemia, electrolyte abnormalities, cardiac sources, intracerebral event, toxicologic, neurologic, as well as others were entertained. The patient was evaluated immediately upon arrival. A stroke alert was initiated. The patient had dropped in the left arm. He notes he was starting to feel somewhat better. He was anxious. He went to CT imaging and this was performed. I did consult with tele-stroke. The patient was evaluated. His son have mild hypokalemia and this was repleted. The patient was given normal saline hydration. Tylenol was given for his headache. He notes that this is been coming and going. The patient had CT imaging of his head and neck performed. There was no acute ischemia noted. Radiology did question an abnormality potentially could be a small non-acute subdural. MRI was recommended. TPA was not indicated as the patient's symptoms resolve completely during his tele-stroke evaluation. The patient had an MRI with contrast ordered. MRI also ordered. On reassessment the patient was doing much better. He had no symptoms to suggest acute stroke. Medication Reconcilliation Current Medication List: was personally reviewed by me Blood Pressure Screening Patient's blood pressure: Elevated blood pressure Referred to hospitalist. Impression Primary Impression: Stroke-like symptoms Additional Impressions: Headache Hypokalemia Scribe Attestation The scribe's documentation has been prepared under my direction and personally reviewed by me in its entirety. I confirm that the note above accurately reflects all work, treatment, procedures, and medical decision making performed by me. Departure Information Dispostion Being Evaluated By Hospitalist Referrals Matheus Riojas M.D. (PCP) Patient Instructions My [facility] Stroke History Time Last Known Well 1999 Stroke t-PA Criteria Reviewed Does NOT meet criteria for t-PA Reason t-PA Not Given Treatment not indicated Problem Qualifiers
[2017-08-07] MEDS ORDERED: GADAVIST IV PRN (02:30)
[2017-08-07] MEDS ORDERED: PHARMACIST DISCHARGE MED REC CONSULT PRN (03:30)
[2017-08-07] MEDS ORDERED: MAGNESIUM HYDROXIDE SUSP 30 ML UDC PO PRN (03:30)
[2017-08-07] MEDS ORDERED: ALUMINUM/MAGNESIUM/SIMETH (MAALOX MAX) 30 ML UDC PO PRN (03:30)
[2017-08-07] MEDS ORDERED: ONDANSETRON INJ 2 MG/ML 2 ML VIAL IV PRN (03:30)
[2017-08-07] MEDS ORDERED: POLYETHYLENE (MIRALAX) 17 GM PACK PO PRN (03:30)
[2017-08-07] MEDS ORDERED: ALBUT/IPRATROP 3MG/0.5MG NEB 3 ML VIAL INH SCH (03:45)
--- NOTE | 2017-08-07 04:04 | History and Physical ---
History & Physical Date & Time of Service: Aug 07, 2017 at 03:39 Chief Complaint: Fell, Leaning Towards One Side, Tremors Lt Side Primary Care Physician: Matheus Riojas M.D. History of Present Illness Source: patient This is a 57 yo m with a history of asthma and htn that is presenting to us with multipl episode of arm weakness/ spasms. He states that the first episode was at approx 1200 yesterday. He was picking up and item and his arm started to spasm and soon after was weak. He noted worsening occipital pain (recent head injury and patient has had a constant right sided STOREY extendeding to the occipital region since) and numbness inbetween the thumb and index finger when the spasm resolved. Patient is currently asymptomatic. The patient then had two additional episodes similar in nature and his encouraged him to come to the ED for evaluation. A code stroke was called and CT revealed that the patient had changes concerning for a subdural hematoma but could not be confirmed. Considering the patient had a recent head injury on saturday with onset of headache on saturday the physician was concerned and requested an MRi to confirm. At this point patient was not a candidate for tpa. MRI did not reveal intracranial hemorrhage or acute infarct. Past Medical/Surgical History Medical Problems: (1) Anxiety Status: Chronic (2) Diverticulosis Status: Chronic (3) Hyperlipidemia Status: Chronic (4) Hypertension Status: Chronic (5) Prostate cancer Permanent Comment: STAGING: Prostate, adenocarcinoma, triny 3 + 4, PSA 4.65, cT1c, group IIA Prostate gland size by TRUS - 25.1 TREATMENT: 1. Status post prostate seed implant as boost 11/06/2016 43 seeds were placed 8500 cGy 2. Status post completion of IMRT/IGRT completed 01/28/2017 received 4500 cGy Status: Resolved Family History No significant family history Social History Smoking Status: Current Every Day Smoker (cigar) Smokeless Tobacco Use: No Alcohol Use: none Drug Use: none Marital Status: Housing status: lives with family Occupational Status: retired Immunizations History of Influenza Vaccine: Unknown History of Tetanus Vaccine?: Unknown History of Pneumococcal: Unknown History of Hepatitis B Vaccine: Unknown Multi-Drug Resistant Organisms History of MDRO: No Allergies Coded Allergies: BEE STING (Verified Allergy, Severe, ANAPHYLAXIS, 08/06/17) Tamsulosin (Verified Adverse Reaction, Intermediate, Hives , 08/06/17) Home Medications Scheduled Amlodipine (Norvasc), 5 MG PO QAM Citalopram Hydrobromide (Celexa), 1 TAB PO DAILY Fenofibrate (Tricor ), 1 TAB PO QAM Hctz/Losartan (Hyzaar 25MG/100MG), 1 TAB PO QAM Naproxen (Aleve), 220 MG PO BID Omeprazole (Prilosec), 40 MG PO QAM Psyllium (Metamucil), 1 TSP DAILY Rosuvastatin Calcium (Crestor), 10 MG PO QAM Scheduled PRN Acetaminophen/Diphenhydramine (Tylenol Pm), 2 TAB PO HS PRN for Sleep Alprazolam (Xanax), 0.5 MG PO Q6H PRN for Anxiety Review of Systems Constitutional: No fever, No chills, No sweats Eyes: No worsening of vision ENT: No hearing loss Respiratory: No cough, No sputum, No wheezing, No shortness of breath, No dyspnea on exertion, No dyspnea at rest Cardiovascular: No chest pain Abdomen: No pain, No nausea, No vomiting, No diarrhea, No constipation Musculoskeletal: No joint pain, No muscle pain Genitourinary - Male: No hematuria, No dysuria Neurologic: No weakness, No numbness/tingling, No balance problems Psychiatric: No depression symptoms Endocrine: No fatigue Hematologic / Lymphatic: No abnormal bleeding/bruising Integumentary: No rash Physical Exam Vital Signs Date Time Temp Pulse Resp B/P (MAP) Pulse Ox O2 Delivery O2 Flow Rate FiO2 08/07/17 03:10 36.9 62 16 105/62 98 Room Air 08/07/17 01:51 65 08/07/17 01:48 36.9 69 16 117/77 98 Room Air 08/07/17 00:00 69 16 146/95 98 Room Air 08/06/17 23:45 69 19 134/98 96 Room Air 08/06/17 23:30 72 17 129/91 96 Room Air 08/06/17 23:16 71 17 148/85 98 Room Air 08/06/17 23:00 69 19 135/97 98 Room Air 08/06/17 22:50 67 21 97 08/06/17 22:45 130/91 08/06/17 22:35 74 21 96 08/06/17 22:30 75 17 133/93 98 10/17/17 22:25 73 26 96 08/06/17 22:20 75 22 96 08/06/17 22:15 126/86 08/06/17 22:07 95 Room Air 08/06/17 22:05 74 21 08/06/17 22:02 80 08/06/17 22:00 81 31 143/90 08/06/17 21:58 145/89 08/06/17 21:58 74 18 145/89 97 Room Air 08/06/17 21:38 36.9 82 20 131/94 96 Room Air General Appearance: no apparent distress Head: normocephalic, atraumatic Eyes: normal inspection ENT: normal ENT inspection Neck: supple Respiratory/Chest: + wheezing, + pertinent finding (coarse breath sounds thruout) Cardiovascular: regular rate, rhythm, no murmur, normal peripheral pulses Abdomen/GI: normal bowel sounds, non tender, soft Extremities/Musculoskelatal: normal inspection, no calf tenderness, no pedal edema, normal range of motion Neurologic/Psych: 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 as tested, no motor/sensory deficits, alert, normal mood/affect, normal reflexes, oriented x 3 Skin: normal color, warm/dry, no rash, + pertinent finding (stasis dermatitis) Lymphatic: no adenopathy Diagnostics Laboratory Results Results Past 24 Hours Test 08/06/17 21:53 08/06/17 22:05 08/06/17 22:08 08/06/17 23:15 Range/Units White Blood Count 7.56 4.8-10.8 K/uL Red Blood Count 4.40 4.7-6.1 M/uL Hemoglobin 14.3 14.0-18.0 g/dL Hematocrit 40.3 42-52 % Mean Corpuscular Volume 91.6 80-100 fL Mean Corpuscular Hemoglobin 32.5 25-34 pg Mean Corpuscular Hemoglobin Concent 35.5 32-36 g/dl Platelet Count 155 130-400 K/uL Mean Platelet Volume 9.4 7.4-10.4 fL Neutrophils (%) (Auto) 71.9 % Lymphocytes (%) (Auto) 13.4 % Monocytes (%) (Auto) 11.6 % Eosinophils (%) (Auto) 2.4 % Basophils (%) (Auto) 0.4 % Neutrophils # (Auto) 5.44 1.4-6.5 K/uL Lymphocytes # (Auto) 1.01 1.2-3.4 K/uL Monocytes # (Auto) 0.88 0.11-0.59 K/uL Eosinophils # (Auto) 0.18 0-0.5 K/uL Basophils # (Auto) 0.03 0-0.2 K/uL RDW Standard Deviation 42.7 36.4-46.3 fL RDW Coefficient of Variation 12.7 11.5-14.5 % Immature Granulocyte % (Auto) 0.3 % Immature Granulocyte # (Auto) 0.02 0.00-0.02 K/uL Prothrombin Time 10.9 9.0-12.0 SECONDS Prothromb Time International Ratio 1.0 0.9-1.1 Activated Partial Thromboplast Time 33.1 21.0-31.0 SECONDS Partial Thromboplastin Ratio 1.3 Sodium Level 132 136-145 mmol/L Potassium Level 3.1 3.5-5.1 mmol/L Chloride Level 99 98-107 mmol/L Carbon Dioxide Level 23 21-32 mmol/L Anion Gap 10.0 19.0 16-25 mmol/L Blood Urea Nitrogen 11 7-18 mg/dl Creatinine 0.90 0.60-1.40 mg/dl Est Creatinine Clear Calc Drug Dose 118.0 ml/min Estimated GFR () 108.0 Estimated GFR (Non- 93.2 BUN/Creatinine Ratio 12.1 10-20 Random Glucose 111 70-99 mg/dl Calcium Level 10.0 8.5-10.1 mg/dl Total Creatine Kinase 439 39-308 U/L Creatine Kinase MB 1.0 0.5-3.6 ng/ml Creatine Kinase MB Ratio 0.2 0-3.0 Troponin I < 0.015 0-0.045 ng/ml Bedside Prothrombin Time INR 1.1 0.9-1.1 Bedside Glucose 130 70-99 mg/dl Bedside Hemoglobin 13.9 14.0-18.0 g/dl Bedside Hematocrit 41 42-52 % Bedside Sodium 135 135-144 mEq/L Bedside Potassium 3.1 3.3-5.0 mEq/L Bedside Chloride 98 101-112 mEq/L Bedside Total CO2 22 24-31 mEq/l Bedside Blood Urea Nitrogen 10 7-18 mg/dl Bedside Creatinine 0.8 0.6-1.3 mg/dl Bedside Glucose (other) 113 70-99 mg/dl Bedside Ionized Calcium (Kathy) 1.22 1.12-1.32 mmol/l Urine Color YELLOW Urine Appearance CLEAR CLEAR Urine pH 6.5 4.5-7.5 Urine Specific [place] 1.007 1.000-1.030 Urine Protein NEG NEG Urine Glucose (UA) NEG NEG Urine Ketones NEG NEG Urine Occult Blood 1+ NEG Urine Nitrite NEG NEG Urine Bilirubin NEG NEG Urine Urobilinogen NEG NEG Urine Leukocyte Esterase NEG NEG Urine WBC (Auto) 1-5 0-5 /hpf Urine RBC (Auto) 0-4 0-4 /hpf Urine Hyaline Casts (Auto) 0 0-5 /lpf Urine Epithelial Cells (Auto) 0-5 0-5 /lpf Urine Bacteria (Auto) NEG NEG Test 08/07/17 03:23 Range/Units Diagnostic Radiology MRI: no acute infarct, intracranial hem or mass Thin and diffuse dural enhancement surrounding right cerebral hemisphere. this is indeterminate etiology. Considerations include intracranial hypotension, although asymmetry is atypical mild periventricular and scattered T2/ FLAIR white matter hyperintensities, non specific but most commonly related to chronic small vessel ischemic changes small retention cysts in maxillary sinuses Impression Assessment and Plan This is a 57 yo m suffering from left arm weakness concerning for TIA vs hypotension TIA - tele admission - Neuro consult - B2 micro, antiphos, homocysteine and lupus anticoag levels ordered - antihypertensives held for time being as could have been cause of symptoms - pt ot speech HTN - patient is on HCTZ/losartan 25/100, amlodipine 5 mg and have been held for mentioned above Asthma vs copd duoneb prn, improvement in wheezing after administration of medication - patient never formally diagnosed and is not on chronic inhalers HPL - continue fenofibrate and rosuvastatin 10 mg Anxiety - continue celexa and alprazolam Dvt prophylaxis heparin bid Attending Addendum: I have physically seen and examined this patient, have directed the resident's medical activities, and agree with the H&P as noted above with the following exceptions as noted. The patient is awake, alert and oriented 3, well-developed and well-nourished , normocephalic and atraumatic, lying in bed and in no acute distress. HEENT--PERRL, EOMI, mucous membranes and oropharynx dry. Neck--supple, no JVD or bruits, thyroid normal, trachea midline, no adenopathy. Heart--normal S1 and S2, no extra beats, no murmurs, rubs or gallops. Lungs--a few scattered wheezes bilaterally, no respiratory distress, no accessory muscle use. Abdomen--normal bowel sounds and soft, nontender and nondistended, no hernias or masses, no organomegaly. Extremities--no cyanosis, clubbing or edema. There are good distal pulses b/l. Dermatologic--mild venous stasis dermatitis. Neurologic--cranial nerves II through XII grossly intact, motor and sensory examination normal. Rheumatologic--normal range of motion, nontender, muscles and joints. Psychiatric--normal affect. Assessment and Plan: Transient left upper extremity weakness/question of TIA versus CVA/CT suggested possible intracranial hypotension-- The patient will be admitted to telemetry for serial cardiac enzymes, cardiac rhythm monitoring and a 2-D echocardiogram with Dopplers. Hold amlodipine and losartan/HCTZ. Normal saline with KCl 20 mEq 100 ML's per hour. Arterial hypercoagulable workup. Consult PT/OT/addiction social worker/neurology. Bronchospasm-- Improved with nebulizer and ED, and will continue to have duonebs available when necessary. Hyperlipidemia-- Continue fenofibrate and simvastatin. Check a fasting lipid profile and hemoglobin A1c. Anxiety-- Continue Celexa and alprazolam. Level of Care Telemetry Advanced Directives Existing Advance Directive: No Existing Living Will: No Existing Power of Metal Fabricator: No Resuscitation Status FULL RESUSCITATION VTE Prophylaxis VTE Risk Assessment Done? Y/N: Yes Risk Level: Moderate Given or contraindicated: Unfractionated heparin SQ Social Service Consult None Apply Note Total Time: Critical Care 30 - 74 minutes Additional Copies To Matheus Riojas M.D.
[2017-08-07] MEDS ORDERED: ALBUT/IPRATROP 3MG/0.5MG NEB 3 ML VIAL INH PRN (04:15)
--- NOTE | 2017-08-07 04:59 | EMERGENCY ROOM VISIT NOTE ---
ED Visit Note 57 yr old male initially evaluated by Dr Carmona for stroke like symptoms that resolved. During work-up unusual findings on CT head thus MRI ordered in ED. Signed over to me awaiting MRI results brain to make sure no bleed. MRI with "no acute infart, intracranial hemorrhage, or mass" along with discussion of dural enhancement right cerebral hemisphere of indeterminant etiology. With no bleed seems reasonable to keep here for further work-up/evaluation of symptoms he had initially. I discussed MRI results with patient and hospitalist in to evaluate him as they were already made aware of patient by Dr Carmona.
[2017-08-07] MEDS ORDERED: INFLUENZA ADMINISTRATION CHARGE ONE (05:00)
[2017-08-07] MEDS ORDERED: INFLUENZA VIRUS QUAD VACCINE 0.5 ML SYR IM. ONE (05:00)
[2017-08-07] MEDS: ALPRAZOLAM 0.5 MG TAB PO PRN ×3 (05:12→23:47)
[2017-08-07] MEDS: NSS + 20MEQ KCL 1000ML 1,000 ML IV SCH ×2 (05:15→16:29)
[2017-08-07] MEDS: ACETAMINOPHEN 325 MG TAB PO PRN ×3 (05:56→21:54)
--- NOTE | 2017-08-07 06:51 | DIAGNOSTIC IMAGING REPORT ---
ADDENDUM Addendum: There is a tiny chronic right convexity subdural hematoma measuring 2 mm in thickness. This is felt to explain the right-sided dural enhancement. Electronically signed by: Mateusz Suarez M.D. 08/07/2017 1:15 PM Dictated Date/Time: 08/07/2017 1:14 PM ORIGINAL REPORT MRI OF THE BRAIN WITHOUT AND WITH IV CONTRAST CLINICAL HISTORY: Stroke like symptoms. Severe headache. Confusion. Blurred vision. Prostate carcinoma. COMPARISON STUDY: Noncontrast head CT dated 08/06/2017 TECHNIQUE: MRI of the brain was performed from the vertex to the skull base utilizing various T1 and T2 weighted sequences. Following the IV administration of 11 mL of Gadavist contrast, additional enhanced images were obtained. FINDINGS: Sagittal T1, axial diffusion, proton density and T2 weighted axial, coronal FLAIR, and pre and post axial T1-weighted images were acquired. These were supplemented with post gadolinium coronal T1 weighted images. No intra or extra-axial mass lesions are visualized. Axial diffusion-weighted images reveal no evidence of acute or subacute infarction. There is no evidence of ventricular dilatation. Proton density T2-weighted and FLAIR images reveal scattered foci of increased T2 signal within the white matter, likely on a small vessel basis. There are no abnormal flow voids. There is asymmetric smooth thin dural enhancement surrounding the right hemisphere. This is a nonspecific finding which can be seen in infection, intracranial hypotension, idiopathic pachymeningitis, rheumatoid arthritis, post lumbar puncture, neurosarcoid, as well as in cerebral venous thrombosis. Bilateral inflammatory changes are present within the paranasal sinuses. IMPRESSION: 1. No evidence of intracranial mass 2. No evidence of acute or subacute infarction 3. Diffuse right hemispheric dural enhancement. There is a nonspecific finding. Please see above differential. 4. Nonspecific foci of increased T2 signal within the white matter, likely on a small vessel basis Electronically signed by: Mateusz Suarez M.D. 08/07/2017 6:50 AM Dictated Date/Time: 08/07/2017 6:43 AM
--- NOTE | 2017-08-07 06:53 | DIAGNOSTIC IMAGING REPORT ---
MRA OF THE INTRACRANIAL CIRCULATION WITHOUT CONTRAST CLINICAL HISTORY: Stroke symptoms. Recent fall. Headache. COMPARISON STUDY: Head CT August 06, 2017. TECHNIQUE: Utilizing a 1.5 Kiana magnet and 3-D [id number]-[id number] technique, unenhanced MRA of the intracranial circulation was obtained. FINDINGS: The bilateral M1, M2, A1 and A2 segments are patent. There is no intracranial aneurysm or abrupt vessel cut off. The posterior circulation is also intact. The right vertebral artery is dominant. The MRI of the brain will be reported separately. IMPRESSION: Unremarkable MRA of the intracranial circulation. Electronically signed by: Lucius Sweeney M.D. 08/07/2017 6:51 AM Dictated Date/Time: 08/07/2017 6:48 AM
[2017-08-07 08:38] LABS: ESTIMATED AVERAGE GLUCOSE 108 mg/dl; HA1C FLAG Normal (Normal)
[2017-08-07] MEDS ORDERED: LOSARTAN/HCTZ 50-12.5 EA TAB PO SCH (09:00)
[2017-08-07] MEDS ORDERED: AMLODIPINE BESYLATE 5 MG TAB PO SCH (09:00)
[2017-08-07] MEDS ORDERED: HEPARIN SOD 5000 UNIT/0.5 ML CARP SQ SCH (09:00)
[2017-08-07] MEDS: PANTOprazole SOD 40 MG TAB PO SCH (09:30)
[2017-08-07] MEDS: CITALOPRAM 20 MG TAB PO SCH (09:30)
[2017-08-07] MEDS: ROSUVASTATIN CALCIUM 10 MG TAB PO SCH (09:30)
[2017-08-07] MEDS: FENOFIBRATE 145 MG TAB PO SCH (09:30)
[2017-08-07] MEDS ORDERED: LEVETIRACETAM IV 1,000 MG in DEXTROSE 5% 100ML 100 ML IV ONE (10:00)
--- NOTE | 2017-08-07 10:32 | Neurology Consultation ---
Neurology Consultation Date of Consultation: Aug 07, 2017. Attending Physician: Nerissa Milton M.D. Primary Care Physician: Matheus Riojas M.D. Reason for Consultation: Left upper extremity weakness History of Present Illness Source: patient, hospital records The patient is a 57-year-old male complains of episodic numbness, shaking, and weakness of the left upper extremity which began yesterday afternoon. He reports an unusual tingling sensation that travels up and down the left arm with associated stiffness of the limb followed by shaking then followed by a feeling of weakness. He reports these episodes last for several minutes. The patient indicates that he had fallen down his basement steps this past Saturday during which time he sustained some injury to his right shoulder. On Saturday, he began complaining of an intense right-sided headache extending from the cervical region forward which seem to be new for him. He had some associated nausea as well. Past medical history notable for hypertension, anxiety, and prostate cancer. No known history of stroke or seizure disorder. This patient was found to have mild left upper extremity weakness while in the emergency department. Tele stroke consultation was obtained although he was not considered a candidate for TPA. The patient has been admitted to the hospital for further evaluation of "TIA." A CT of the head reveals a possible small, subacute right convexity subdural hematoma. I reviewed the images as well as radiologist's interpretation of this test and agree. A follow-up brain MRI has been obtained as well. The study reveals dural enhancement over the right cerebral convexity. There is an extensive radiographic differential diagnosis including intracranial hypotension and focal inflammation. I reviewed the images as well as radiologist's interpretation of the MRI as well. An MRA of the head is unremarkable. An electrocardiogram reveals a normal sinus rhythm, 74 bpm. Past Medical/Surgical History Medical Problems: (1) Acute diverticulitis Status: Acute (2) Headache Status: Acute (3) Hypokalemia Status: Acute (4) Intractable abdominal pain Status: Acute (5) Stroke-like symptoms Status: Acute Family History Patient denies a family history of epilepsy or seizure disorder Social History Smokeless Tobacco Use: No Alcohol Use: none Drug Use: none Marital Status: Housing Status: lives with family Occupation Status: retired Allergies Coded Allergies: BEE STING (Verified Allergy, Severe, ANAPHYLAXIS, 08/06/17) Tamsulosin (Verified Adverse Reaction, Intermediate, Hives , 08/06/17) Current Inpatient Medications Current Inpatient Medications Medications (Trade) Dose Ordered Sig/Loyda Route Start Time Stop Time Status Last Admin Dose Admin Gadobutrol (Gadavist) 11 mmol UD PRN IV 08/07/17 02:30 08/11/17 02:29 Miscellaneous Information (Pharmacist Discharge Med Rec Consult) 1 ea UD PRN N/A 08/07/17 03:30 09/06/17 03:29 Heparin Sodium (Porcine) (Heparin Sq 5000 Unit/0.5ml) 5,000 unit Q12 SQ 08/07/17 09:00 09/06/17 08:59 Acetaminophen (Tylenol Tab) 650 mg Q4H PRN PO 08/07/17 03:30 09/06/17 03:29 08/07/17 05:56 650 MG Al Hydrox/Mg Hydrox/Simethicone (Maalox Max Susp) 15 ml Q4H PRN PO 08/07/17 03:30 09/06/17 03:29 Magnesium Hydroxide (Milk Of Magnesia Susp) 30 ml Q12H PRN PO 08/07/17 03:30 09/06/17 03:29 Ondansetron HCl (Zofran Inj) 4 mg Q6H PRN IV 08/07/17 03:30 09/06/17 03:29 Polyethylene (Miralax Powder Packet) 17 gm DAILY PRN PO 08/07/17 03:30 09/06/17 03:29 Alprazolam (Xanax Tab) 0.5 mg Q6H PRN PO 08/07/17 03:30 09/06/17 03:29 08/07/17 05:12 0.5 MG Citalopram Hydrobromide (celeXA TAB) 20 mg DAILY PO 08/07/17 09:00 09/06/17 08:59 08/07/17 09:30 20 MG Fenofibrate (Tricor Tab) 145 mg QAM PO 08/07/17 09:00 09/06/17 08:59 08/07/17 09:30 145 MG Rosuvastatin Calcium (Crestor Tab) 10 mg QAM PO 08/07/17 09:00 09/06/17 08:59 08/07/17 09:30 10 MG Pantoprazole Sodium (Protonix Tab) 40 mg QAM PO 08/07/17 09:00 09/06/17 08:59 08/07/17 09:30 40 MG Potassium Chloride/Sodium Chloride 1,000 ml @ 100 mls/hr Q10H IV 08/07/17 05:00 09/06/17 04:59 08/07/17 05:15 100 MLS/HR Albuterol/ Ipratropium (Duoneb) 3 ml Q4R PRN INH 08/07/17 04:15 09/06/17 04:14 Levetiracetam 1000 mg/Dextrose 110 ml @ 440 mls/hr ONE ONCE IV 08/07/17 10:00 08/07/17 10:14 08/07/17 09:46 440 MLS/HR Levetiracetam (Keppra Tab) 500 mg BID PO 08/07/17 21:00 09/06/17 20:59 Review of Systems Constitutional: No fever or chills Eyes: No vision loss or diplopia ENT: No hearing loss or vertigo Cardiovascular: No chest pain or palpitations Respiratory: No coughing wheezing or shortness of breath Musculoskeletal: Right shoulder pain as described in history of present illness Neurological: As per history of present illness A full 10 point review of systems was obtained from this patient with pertinent positives and negatives as described in the history of present illness and otherwise listed above. All remaining systems reviewed and are negative. Physical Exam Vital Signs (Past 24 Hrs): Date Time Temp Pulse Resp B/P (MAP) Pulse Ox O2 Delivery O2 Flow Rate FiO2 08/07/17 08:09 37.4 64 18 118/74 (89) 93 Room Air 08/07/17 05:03 36.8 72 21 146/85 (105) 98 Room Air 08/07/17 04:10 37.1 71 16 133/88 94 Room Air 08/07/17 04:10 37.1 71 16 133/88 (103) 94 Room Air 08/07/17 04:00 98 Room Air 08/07/17 03:49 36.9 62 16 117/74 98 08/07/17 03:10 36.9 62 16 105/62 98 Room Air 08/07/17 01:51 65 08/07/17 01:48 36.9 69 16 117/77 98 Room Air 08/07/17 00:00 69 16 146/95 98 Room Air 08/06/17 23:45 69 19 134/98 96 Room Air 08/06/17 23:30 72 17 129/91 96 Room Air 08/06/17 23:16 71 17 148/85 98 Room Air 08/06/17 23:00 69 19 135/97 98 Room Air 08/06/17 22:50 67 21 97 08/06/17 22:45 130/91 08/06/17 22:35 74 21 96 08/06/17 22:30 75 17 133/93 98 08/06/17 22:25 73 26 96 08/06/17 22:20 75 22 96 08/06/17 22:15 126/86 08/06/17 22:07 95 Room Air 08/06/17 22:05 74 21 08/06/17 22:02 80 08/06/17 22:00 81 31 143/90 08/06/17 21:58 145/89 08/06/17 21:58 74 18 145/89 97 Room Air 08/06/17 21:38 36.9 82 20 131/94 96 Room Air The patient is a well-developed, elderly male. He is sitting up comfortably in bed and is in no acute distress. He is alert and oriented to person place and time. Recent and remote memory intact attention and concentration are normal. Patient exhibits a normal spontaneous speech pattern. He exhibits an age- appropriate fund of knowledge and normal vocabulary. Visual rivero full to confrontation. Visual acuity normal. Pupils equal round reactive to light and accommodation. Eye movements normal. Facial sensation intact bilaterally. There is normal facial symmetry and strength. No facial droop. Hearing intact to finger rub bilaterally. Palate elevates to midline. Shoulder shrug intact bilaterally. Tongue protrudes to midline. Sensation intact to light touch, temperature, vibration, and proprioception for all 4 limbs. Deep tendon reflexes are intact and symmetrical for the arms and legs. There is mild dysmetria with finger to nose for the left arm. No dysmetria for the right arm or legs. Ophthalmoscopic examination reveals normal-appearing optic nerves and posterior segments. No papilledema or hemorrhages. Carotid pulses normal bilaterally, no bruits to auscultation. Gait and station not tested due to safety concerns. Muscle strength and tone normal for all 4 limbs proximally and distally. There is no atrophy. No abnormal movements observed. Laboratory Results Past 24 Hours: 08/06/17 21:53 Red Blood Count 4.40, Mean Corpuscular Volume 91.6, Mean Corpuscular Hemoglobin 32.5, Mean Corpuscular Hemoglobin Concent 35.5, Mean Platelet Volume 9.4, Neutrophils (%) (Auto) 71.9, Lymphocytes (%) (Auto) 13.4, Monocytes (%) (Auto) 11.6, Eosinophils (%) (Auto) 2.4, Basophils (%) (Auto) 0.4, Neutrophils # (Auto ) 5.44, Lymphocytes # (Auto) 1.01, Monocytes # (Auto) 0.88, Eosinophils # (Auto ) 0.18, Basophils # (Auto) 0.03 08/06/17 21:53 Test 08/06/17 21:53 08/06/17 22:05 08/06/17 22:08 08/06/17 23:15 White Blood Count 7.56 K/uL (4.8-10.8) Red Blood Count 4.40 M/uL (4.7-6.1) Hemoglobin 14.3 g/dL (14.0-18.0) Hematocrit 40.3 % (42-52) Mean Corpuscular Volume 91.6 fL (80-100) Mean Corpuscular Hemoglobin 32.5 pg (25-34) Mean Corpuscular Hemoglobin Concent 35.5 g/dl (32-36) Platelet Count 155 K/uL (130-400) Mean Platelet Volume 9.4 fL (7.4-10.4) Neutrophils (%) (Auto) 71.9 % Lymphocytes (%) (Auto) 13.4 % Monocytes (%) (Auto) 11.6 % Eosinophils (%) (Auto) 2.4 % Basophils (%) (Auto) 0.4 % Neutrophils # (Auto) 5.44 K/uL (1.4-6.5) Lymphocytes # (Auto) 1.01 K/uL (1.2-3.4) Monocytes # (Auto) 0.88 K/uL (0.11-0.59) Eosinophils # (Auto) 0.18 K/uL (0-0.5) Basophils # (Auto) 0.03 K/uL (0-0.2) RDW Standard Deviation 42.7 fL (36.4-46.3) RDW Coefficient of Variation 12.7 % (11.5-14.5) Immature Granulocyte % (Auto) 0.3 % Immature Granulocyte # (Auto) 0.02 K/uL (0.00-0.02) Prothrombin Time 10.9 SECONDS (9.0-12.0) Prothromb Time International Ratio 1.0 (0.9-1.1) Activated Partial Thromboplast Time 33.1 SECONDS (21.0-31.0) Partial Thromboplastin Ratio 1.3 Est Creatinine Clear Calc Drug Dose 118.0 ml/min Estimated GFR () 108.0 Estimated GFR (Non- 93.2 BUN/Creatinine Ratio 12.1 (10-20) Calcium Level 10.0 mg/dl (8.5-10.1) Total Creatine Kinase 439 U/L (39-308) Creatine Kinase MB 1.0 ng/ml (0.5-3.6) Creatine Kinase MB Ratio 0.2 (0-3.0) Troponin I < 0.015 ng/ml (0-0.045) Bedside Prothrombin Time INR 1.1 (0.9-1.1) Bedside Hemoglobin 13.9 g/dl (14.0-18.0) Bedside Hematocrit 41 % (42-52) Bedside Sodium 135 mEq/L (135-144) Bedside Potassium 3.1 mEq/L (3.3-5.0) Bedside Chloride 98 mEq/L (101-112) Bedside Total CO2 22 mEq/l (24-31) Anion Gap 19.0 mmol/L (16-25) Bedside Blood Urea Nitrogen 10 mg/dl (7-18) Bedside Creatinine 0.8 mg/dl (0.6-1.3) Bedside Glucose (other) 113 mg/dl (70-99) Bedside Ionized Calcium (Kathy) 1.22 mmol/l (1.12-1.32) Urine Color YELLOW Urine Appearance CLEAR (CLEAR) Urine pH 6.5 (4.5-7.5) Urine Specific Merrill 1.007 (1.000-1.030) Urine Protein NEG (NEG) Urine Glucose (UA) NEG (NEG) Urine Ketones NEG (NEG) Urine Occult Blood 1+ (NEG) Urine Nitrite NEG (NEG) Urine Bilirubin NEG (NEG) Urine Urobilinogen NEG (NEG) Urine Leukocyte Esterase NEG (NEG) Urine WBC (Auto) 1-5 /hpf (0-5) Urine RBC (Auto) 0-4 /hpf (0-4) Urine Hyaline Casts (Auto) 0 /lpf (0-5) Urine Epithelial Cells (Auto) 0-5 /lpf (0-5) Urine Bacteria (Auto) NEG (NEG) Test 08/07/17 05:00 08/07/17 05:30 08/07/17 05:34 Bedside Glucose 116 mg/dl (70-99) Estimated Average Glucose 108 mg/dl Hemoglobin A1c 5.4 % (4.5-5.6) Impression This is a 57-year-old male who is been experiencing recurrent numbness which travels up and down the left arm and is associated with stiffening of the limb followed by shaking. 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 There is no evidence of stroke on the recently completed brain MRI. An EEG completed this morning does reveal intermittent right frontal slowing and sharps per my review. Plan I have recommended initiation of treatment with an anticonvulsant and ordered 1 g of IV Keppra as well as a maintenance dose of 500 mg by mouth twice a day. Review the full EEG report when available later today. Obtain a repeat CT of the head today to ensure stability of the probable right convexity subdural hematoma. Obtain a carotid ultrasound as this patient's brain MRI does reveal an element of chronic cerebrovascular disease as well. This patient will need to abstain from driving a motor vehicle for the time being. He will need to follow-up clinic for ongoing monitoring of his condition.
--- NOTE | 2017-08-07 13:14 | DIAGNOSTIC IMAGING REPORT ---
CT HEAD WITHOUT CONTRAST (CT) CLINICAL HISTORY: Subdural hematoma. Follow-up examination. COMPARISON STUDY: No previous studies for comparison. TECHNIQUE: Axial CT of the brain is performed from the vertex to the skull base. IV contrast was not administered for this examination. A dose lowering technique was utilized adhering to the principles of ALARA. CT DOSE: 638.84 mGy.cm FINDINGS: No intra-axial mass lesions are visualized. There is a suspected trace chronic right convexity subdural hematoma, unchanged the prior study. There is no CT evidence of acute cortical infarction. There is no evidence of intraparenchymal hemorrhage or subarachnoid hemorrhage. There are patchy white matter hypodensities likely on a small vessel basis. There is no evidence of pathologic ventricular dilatation. There is no evidence of acute sinusitis IMPRESSION: 1. Tiny chronic right convexity subdural hematoma, unchanged from the preceding study. Electronically signed by: Mateusz Suarez M.D. 08/07/2017 1:13 PM Dictated Date/Time: 08/07/2017 1:08 PM
--- NOTE | 2017-08-07 13:20 | ECHOCARDIOGRAM REPORT ---
*NOTICE TO RECEIVING REPUBLICAN AGENCY This information is strictly Confidential and protected under [place] law. [place] law prohibits you from making any further disclosure of this information unless further disclosure is expressly permitted by the written consent of the person to whom it pertains or is authorized by law. A general authorization for the release of medical or other information is not sufficient for this purpose. Hospital accepts no responsibility if the information is made available to any other person, INCLUDING THE PATIENT. Interpretation Summary * Name: FRED HOGAN Study Date: 08/07/2017 07:03 AM BP: 146/85 mmHg * Patient Location: C.2T\S\S230\S\2 HR: 65 * : 1960 (M/d/yyyy) Gender: Male Height: 74 in * Age: 57 yrs Ethnicity: CA Weight: 248 lb * Ordering Physician: Mya Pugh * Referring Physician: Self, Referred * Performed By: Naida Miller [facility] * * Reason For Study: TIA * BSA: 2.4 m2 * -- Conclusions -- * Left ventricular systolic function is normal. * No regional wall motion abnormalities noted. * Ejection Fraction = 55-60%. * No significant valvular pathology. * No ASD or PFO. Procedure Details * A complete two-dimensional transthoracic echocardiogram was performed (2D, M-mode, Doppler and color flow Doppler). * A saline contrast injection was performed to assess for cardiac shunting. * The injection was performed through an intravenous line in the left arm. * The attending nurse who injected the saline contrast was TRACY FREGOSO RN. * A total of 20 cc of agitated saline was given. Left Ventricle * The left ventricle is normal in size. * There is normal left ventricular wall thickness. * Left ventricular systolic function is normal. * Ejection Fraction = 55-60%. * No regional wall motion abnormalities noted. Right Ventricle * The right ventricle is grossly normal size. * The right ventricular systolic function is normal as assessed by tricuspid annular plane systolic excursion (TAPSE) (normal >1.5 cm). Atria * The left atrium is mildly dilated. * Borderline right atrial enlargement. * Injection of contrast documented no interatrial shunt. Mitral Valve * The mitral valve anatomy is normal. * There is no mitral valve stenosis. * There is trace mitral regurgitation. Tricuspid Valve * The tricuspid valve is not well visualized, but is grossly normal. * There is no tricuspid stenosis. * There is trace tricuspid regurgitation. Aortic Valve * The aortic valve is tricuspid. The leaflet thickness if normal. There is no aortic stenosis, and no significant insufficiency. * The aortic valve opens well. * Aortic valve sclerosis mild, without significant aortic valvular stenosis. * No aortic regurgitation is present. Pulmonic Valve * The pulmonary valve is not well seen, but the Doppler examination is normal without significant regurgitation or stenosis. Great Vessels * The aortic root is normal size. * The pulmonary is not well visualized. Pericardium/Pleural * There is no pericardial effusion. Great Vessels * Normal inferior vena cava size and collapsability with sniff indicates a normal right atrial pressure of 3 mmHg MMode 2D Measurements and Calculations IVSd 1.2 cm IVSs 1.7 cm LVIDd 5.0 cm LVIDs 3.3 cm LVPWd 1.3 cm LVPWs 1.5 cm IVS/LVPW 0.94 FS 33.4 % EDV(Teich) 118.0 ml ESV(Teich) 45.0 ml EF(Teich) 61.9 % EDV(cubed) 124.7 ml ESV(cubed) 36.8 ml EF(cubed) 70.5 % % IVS thick 37.9 % % LVPW thick 9.4 % LV mass(C)d 257.5 grams LV mass(C)dI 108.1 grams/m\S\2 LV mass(C)s 198.0 grams LV mass(C)sI 83.1 grams/m\S\2 SV(Teich) 73.0 ml SI(Teich) 30.7 ml/m\S\2 SV(cubed) 87.9 ml SI(cubed) 36.9 ml/m\S\2 Ao root diam 3.2 cm Ao root area 8.2 cm\S\2 ACS 2.3 cm LA dimension 4.4 cm LA/Ao 1.4 LVOT diam 2.0 cm LVOT area 3.2 cm\S\2 LVAd ap4 41.5 cm\S\2 LVLd ap4 9.0 cm EDV(MOD-sp4) 156.3 ml EDV(sp4-el) 162.7 ml LVAs ap4 26.7 cm\S\2 LVLs ap4 7.7 cm ESV(MOD-sp4) 74.2 ml ESV(sp4-el) 78.2 ml EF(MOD-sp4) 52.5 % EF(sp4-el) 51.9 % LVAd ap2 42.9 cm\S\2 LVLd ap2 9.5 cm EDV(MOD-sp2) 158.5 ml EDV(sp2-el) 164.7 ml LVAs ap2 26.7 cm\S\2 LVLs ap2 7.7 cm ESV(MOD-sp2) 75.1 ml ESV(sp2-el) 78.6 ml EF(MOD-sp2) 52.6 % EF(sp2-el) 52.3 % LVLd %diff 5.4 % EDV(MOD-bp) 162.7 ml LVLs %diff -0.81 % ESV(MOD-bp) 74.6 ml EF(MOD-bp) 54.1 % SV(MOD-sp4) 82.1 ml SI(MOD-sp4) 34.5 ml/m\S\2 SV(MOD-sp2) 83.3 ml SI(MOD-sp2) 35.0 ml/m\S\2 SV(MOD-bp) 88.1 ml SI(MOD-bp) 37.0 ml/m\S\2 SV(sp4-el) 84.5 ml SI(sp4-el) 35.5 ml/m\S\2 SV(sp2-el) 86.1 ml SI(sp2-el) 36.2 ml/m\S\2 Doppler Measurements and Calculations MV E max lupe 93.3 cm/sec MV A max lupe 64.2 cm/sec MV E/A 1.5 MV P1/2t max lupe 95.8 cm/sec MV P1/2t 105.4 msec MVA(P1/2t) 2.1 cm\S\2 MV dec slope 266.2 cm/sec\S\2 MV dec time 0.32 sec Ao V2 max 141.2 cm/sec Ao max PG 8.0 mmHg Ao max PG (full) 2.2 mmHg DOMENICO(V,A) 2.7 cm\S\2 DOMENICO(V,D) 2.7 cm\S\2 LV V1 max PG 5.8 mmHg LV V1 max 120.1 cm/sec MR max lupe 399.8 cm/sec MR max PG 63.9 mmHg PA V2 max 83.7 cm/sec PA max PG 2.8 mmHg TR max lupe 223.4 cm/sec
--- NOTE | 2017-08-07 14:10 | EEG Procedure Note ---
EEG Procedure Note Date of Service Aug 07, 2017. Start / End Times Start Time: 9:00am End Time: 9:20am Referring Physician Jose Hooks History This is a 57-year-old male who presents with episodes concerning for partial seizures. EEG for further evaluation. Home Medication List Scheduled Amlodipine (Norvasc), 5 MG PO QAM Citalopram Hydrobromide (Celexa), 1 TAB PO DAILY Fenofibrate (Tricor ), 1 TAB PO QAM Hctz/Losartan (Hyzaar 25MG/100MG), 1 TAB PO QAM Naproxen (Aleve), 220 MG PO BID Omeprazole (Prilosec), 40 MG PO QAM Psyllium (Metamucil), 1 TSP DAILY Rosuvastatin Calcium (Crestor), 10 MG PO QAM Scheduled PRN Acetaminophen/Diphenhydramine (Tylenol Pm), 2 TAB PO HS PRN for Sleep Alprazolam (Xanax), 0.5 MG PO Q6H PRN for Anxiety Inpatient Medication List Current Inpatient Medications Medications (Trade) Dose Ordered Sig/Loyda Route Start Time Stop Time Status Last Admin Dose Admin Gadobutrol (Gadavist) 11 mmol UD PRN IV 08/07/17 02:30 08/11/17 02:29 Miscellaneous Information (Pharmacist Discharge Med Rec Consult) 1 ea UD PRN N/A 08/07/17 03:30 09/06/17 03:29 Heparin Sodium (Porcine) (Heparin Sq 5000 Unit/0.5ml) 5,000 unit Q12 SQ 08/07/17 09:00 09/06/17 08:59 Acetaminophen (Tylenol Tab) 650 mg Q4H PRN PO 08/07/17 03:30 09/06/17 03:29 08/07/17 14:07 650 MG Al Hydrox/Mg Hydrox/Simethicone (Maalox Max Susp) 15 ml Q4H PRN PO 08/07/17 03:30 09/06/17 03:29 Magnesium Hydroxide (Milk Of Magnesia Susp) 30 ml Q12H PRN PO 08/07/17 03:30 09/06/17 03:29 Ondansetron HCl (Zofran Inj) 4 mg Q6H PRN IV 08/07/17 03:30 09/06/17 03:29 Polyethylene (Miralax Powder Packet) 17 gm DAILY PRN PO 08/07/17 03:30 09/06/17 03:29 Alprazolam (Xanax Tab) 0.5 mg Q6H PRN PO 08/07/17 03:30 09/06/17 03:29 08/07/17 05:12 0.5 MG Citalopram Hydrobromide (celeXA TAB) 20 mg DAILY PO 08/07/17 09:00 09/06/17 08:59 08/07/17 09:30 20 MG Fenofibrate (Tricor Tab) 145 mg QAM PO 08/07/17 09:00 09/06/17 08:59 08/07/17 09:30 145 MG Rosuvastatin Calcium (Crestor Tab) 10 mg QAM PO 08/07/17 09:00 09/06/17 08:59 08/07/17 09:30 10 MG Pantoprazole Sodium (Protonix Tab) 40 mg QAM PO 08/07/17 09:00 09/06/17 08:59 08/07/17 09:30 40 MG Potassium Chloride/Sodium Chloride 1,000 ml @ 100 mls/hr Q10H IV 08/07/17 05:00 09/06/17 04:59 08/07/17 05:15 100 MLS/HR Albuterol/ Ipratropium (Duoneb) 3 ml Q4R PRN INH 08/07/17 04:15 09/06/17 04:14 Levetiracetam (Keppra Tab) 500 mg BID PO 08/07/17 21:00 09/06/17 20:59 Description This is a 21 electrode EEG with a single channel dedicated to limited EKG. The electrodes were placed in accordance with the International 10-20 system. There is noted to be frequent muscle artifacts especially during the last half of this recording. Rare electrode artifact At the start of the recording the patient was in an awake state. Background was well organized and composed of symmetric mixed alpha and beta frequencies. There was a symmetric well-formed moderate amplitude 11-12 Hz posterior dominant rhythm that was reactive to eye opening and closure. Hyperventilation was not done. Intermittent photic stimulation at various frequencies produced no abnormalities. There was no state changes or sleep transients. Interpretation This is a normal awake only routine EEG. There was no electrographic seizures or epileptiform discharges. Clinical Correlation A normal EEG does not rule out epilepsy if there is a strong clinical suspicion.
[2017-08-07 14:26] LABS: LYME DISEASE AB IGG NEG (NEG); LYME DISEASE AB IGM NEG (NEG)
--- NOTE | 2017-08-07 15:00 | Family Medicine Progress Note ---
Progress Note Date of Service Aug 07, 2017. Subjective patient doing better this morning reiterates his story; tripped and Fell down some stairs and hit his head on cement. Denies associated dizziness/chest pain He had his shoulder xray the next day but then developed severe headaches. The headaches eventually were accompanied by tremors and stroke like symptoms. Never had this before. no history of seizures. Had another episode after admission In the afternoon; we were notified of a 4 second pause on the monitor; he said he had mild tremors of his left hand but no dizziness or chest pain Constitutional: No fever, No chills ENT: No hearing loss Respiratory: No cough, No sputum, No wheezing, No shortness of breath, No dyspnea on exertion Cardiovascular: No chest pain Abdomen: No pain, No nausea, No vomiting, No diarrhea Neurologic: No memory loss, No paralysis, No weakness, No numbness/tingling , No vertigo, No balance problems Objective Physical Exam General Appearance: no apparent distress Eyes: PERRL, EOMI ENT: hearing grossly normal Neck: no adenopathy, thyroid normal Respiratory/Chest: lungs clear, normal breath sounds, no respiratory distress, no accessory muscle use Cardiovascular: regular rate, rhythm, no edema, no murmur Abdomen: normal bowel sounds, non tender, soft Extremities: normal inspection, no pedal edema, no calf tenderness 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 Noted to have mild residual weakness of the limb which is probably consistent with a partial Ulises's paralysis. Continuing to have symptoms intermittently. Repeat CT with no change. No evidence of stroke on MRI Neurology consulted- appreciate reccs EEG without evidence of epileptiform activity Carotid U/S Started on Keppra; given IV loading dose No driving anticoag markers pending Arrhythmia Noted 4 second pause on monitor today- reported having some tremor like activity that coincided with this pause Cardiology consulted - likely vasovagal. Continue monitoring overnight. Echo pending Hypotensive on admission HCTZ/losartan and norvasc held Asthma vs copd ? duoneb prn, improvement in wheezing after administration of medication - patient never formally diagnosed and is not on chronic inhalers HPL - continue fenofibrate and rosuvastatin 10 mg Anxiety - continue celexa and alprazolam Dvt prophylaxis heparin held in light of hematoma Reviewed: Pt Seen/Exam by Me History continuing to have shaking in his left arm. no vision problem. no headache denies any dizziness, palpitation, chest pain, shortness of breath. Constitutional: denies: fever Respiratory: negative: short of breath Cardiovascular: denies chest pain General Appearance: no apparent distress Respiratory: lungs clear, no respiratory distress Cardiovascular: regular rate, rhythm Neurologic/Psychiatric: no motor/sensory deficits (at the time of my exam), oriented x 3 Skin Characteristics: warm/dry Assessment/Plan Resident Physician Supervision Note: I independently interviewed and examined the patient and verified the hoyt history and physical, reviewed labs and image studies, discussed the case with the resident Dr. Starks and agree with the findings and care plan.
--- NOTE | 2017-08-07 17:03 | CARDIOLOGY CONSULTATION ---
DATE OF CONSULTATION: 08/07/2017 DATE OF CONSULTATION: 08/07/2017 PERTINENT HISTORY: Mr. Hammonds is a 57-year-old white male admitted earlier today with a presumed focal motor seizures of the left upper extremity. The patient had a pause on the monitor today during one of the seizures. This consultation was ordered to assist in his cardiac management. The patient's recent history began on 08/02/2017. The patient had a fall down his basement stairs injuring his right shoulder and striking the right side of his head. He developed significant headaches. On the day prior to presentation, he began to note episodic sensations of numbness, weakness, and shaking of his left upper extremity. The patient's workup at this time has revealed a small right-sided subdural hematoma. His EEG was negative. Dr. Hooks suspects focal motor seizures related to subdural hematoma. The patient has never known of a cardiac event. He has never experienced syncope or presyncope. In reference to the falls described above, the patient had no loss of consciousness and remembers the entire event. He has never experienced exertional chest pain or limiting dyspnea. He further denies PND, orthopnea, palpitations, lower extremity edema, and claudication. Currently, the patient is resting comfortably in bed without complaints. PAST MEDICAL HISTORY: 1. Hypertension. 2. Hypercholesterolemia. 3. History of prostate carcinoma -- fall of 2015 -- radiation seed implants and external beam radiation therapy. 4. Diverticulitis. MEDICATIONS: 1. Losartan/hydrochlorothiazide 50/12.5 one tablet daily -- on hold. 2. Crestor 10 mg at bedtime. 3. TriCor 145 mg daily. 4. Celexa 20 mg b.i.d. 5. Keppra 500 mg b.i.d. 6. Protonix 40 mg per day. 7. Intravenous potassium supplementation. ALLERGIES: 1. TAMSULOSIN. 2. BEE STINGS. 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. Admits to smoking one cigar a day. Drinks several beers and whiskey on a daily basis. FAMILY HISTORY: Father at age 56 from colon carcinoma. Mother at age 78 from a fall. She had Alzheimer dementia. He has 2 brothers and 1 sister. Two of the siblings have diabetes. REVIEW OF SYSTEMS: A 10-point review of systems was negative except for that described above. PHYSICAL EXAMINATION: GENERAL: Well-developed, well-nourished white male in no acute distress. HEAD, EYES, EARS, NOSE, AND THROAT: Negative. NECK: Supple with full carotid upstrokes. There are no carotid bruits. Jugular venous pressure is flat at 90 degrees. There is no thyromegaly. CARDIOVASCULAR: Reveals a regular rhythm with normal S1 and S2. No S3, S4, or murmurs are noted. LUNGS: Clear without rales, rhonchi, or wheezes. ABDOMEN: Soft, nontender without bruits. EXTREMITIES: Reveal intact radial artery and posterior tibial pulses bilaterally. There is no peripheral edema. LABORATORY DATA: CBC notes hemoglobin 13.9, hematocrit 41.0, white count 7.5, platelet count 155,000. Electrolytes note a sodium of 135, potassium 3.1, chloride 98, bicarbonate 22, BUN 10, creatinine 0.8, glucose 116. Troponin I level is undetectable at less than 0.015. MRI of the brain noted a 2 mm right-sided subdural hematoma. MRA of the brain was negative. EKG notes sinus rhythm without abnormalities. Echocardiogram notes normal left ventricular systolic function without wall motion abnormality. An estimated left ventricular ejection fraction is 55-60%. There is no valvular pathology and no evidence of intraatrial shunt. 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 There is an unanswered P-wave at approximately 2 seconds within the pause. IMPRESSION: Mr. Hammonds was admitted earlier today with presumed focal motor seizures related to a subdural hematoma from a fall on 08/02/2017. During a seizure today, the patient demonstrated a 4.1 second pause with an unanswered P-wave at approximately 2 seconds within the pause. Suspect this is related to his recent head trauma and possible high degree of vagal tone during his focal seizure. There is no evidence of conduction system disease on his 12-lead EKG. No further cardiac evaluation is necessary at this time. PLAN: 1. Agree with observation on telemetry. 2. No further cardiac evaluation necessary. 3. Further recommendations depending on his clinical course.
[2017-08-07] MEDS: LEVETIRACETAM 500 MG TAB PO SCH (19:39)
--- NOTE | 2017-08-07 20:54 | DIAGNOSTIC IMAGING REPORT ---
CT SCAN OF THE BRAIN WITHOUT IV CONTRAST CLINICAL HISTORY: Change in mental status. Trace subdural hematoma. COMPARISON STUDY: CT scans of the brain dated 08/07/2017 and 08/06/2017. MRI of the brain dated 08/07/2017. TECHNIQUE: Unenhanced axial CT scan of the brain is performed from the vertex to the skull base. A dose lowering technique was utilized adhering to the principles of ALARA. CT DOSE: 614.27 mGy.cm FINDINGS: Brain parenchyma: There has been no significant change in appearance of a trace subdural hematoma along the right convexity. There is no associated mass effect. Minimal periventricular microangiopathic disease is observed. There is no parenchyma hematoma or evidence of acute territorial ischemia by CT criteria. Naylor-white matter is preserved. Ventricles, sulci, cisterns: Normal in configuration. Intracranial vasculature: There is atherosclerotic calcification of the cavernous carotid arteries. Calvarium: Unremarkable. Sinuses and mastoids: Mild nodular mucosal thickening and retention cyst are present in the maxillary antra. The remaining visualized paranasal sinuses are clear. There is a trace left mastoid effusion. The right mastoid air cells are well pneumatized. Orbits: The bony orbits are grossly intact. IMPRESSION: 1. Unchanged appearance of trace and possibly chronic subdural hematoma along the right convexity as compared to studies performed earlier today. 2. No enlarging hematoma is seen. There is no mass effect, parenchymal hematoma, or evidence of acute territorial ischemia by CT criteria. Electronically signed by: Richar Minor M.D. 08/07/2017 8:52 PM Dictated Date/Time: 08/07/2017 8:48 PM
[2017-08-08] VITALS (7 sets, daily range): BP systolic 113–135; BP diastolic 68–82; PULSE 55–66; TEMP 36.2–36.7; O2SAT 95–97
[2017-08-08] MEDS: NSS + 20MEQ KCL 1000ML 1,000 ML IV SCH ×3 (02:55→21:21)
[2017-08-08] MEDS: ACETAMINOPHEN 325 MG TAB PO PRN ×2 (04:13→19:54)
[2017-08-08 04:45] LABS: BASO % 0.5 %; BASO ABS # 0.02 K/uL (0-0.2); COMPLETE YES; EOS % 5.2 %; HEMATOCRIT 35.8 % (42-52); IG% 0.7 %; LYMPH % 18.4 %; LYMPH ABS # 0.81 K/uL (1.2-3.4); MEAN CELL VOLUME 93.5 fL (80-100); MEAN CORPUSCULAR HEMOGLOBIN 33.2 pg (25-34); MEAN CORPUSCULAR HGB CONC 35.5 g/dl (32-36); MEAN PLATELET VOLUME 9.7 fL (7.4-10.4); MONO % 9.3 %; NEUT % 65.9 %; PLATELET COUNT 141 K/uL (130-400); RED BLOOD COUNT 3.83 M/uL (4.7-6.1)
[2017-08-08 05:24] LABS: BUN/CREATININE RATIO 10.9 (10-20); CALCIUM 8.4 mg/dl (8.5-10.1); CHOLESTEROL/HDL RATIO 3.8; CREATININE 0.73 mg/dl (0.60-1.40); POTASSIUM 3.8 mmol/L (3.5-5.1)
--- NOTE | 2017-08-08 07:44 | DIAGNOSTIC IMAGING REPORT ---
ULTRASOUND OF THE CAROTID ARTERIES CLINICAL HISTORY: cerebrovascular disease, seizure like activity left arm COMPARISON STUDY: None. TECHNIQUE: Real-time, grayscale, and color Doppler sonography of the carotid arteries was performed. Imaging reviewed in the transverse and longitudinal planes. NASCET criteria was utilized for stenosis calcification. FINDINGS: There is mild atherosclerotic plaque present . The peak systolic velocity within the right internal carotid artery is 91 cm/sec. The systolic velocity ratio of right internal to common carotid artery is 1.1. The peak systolic velocity within the left internal carotid artery is 114 cm/sec. The systolic velocity ratio left internal to common carotid artery is 1.6. Antegrade flow is seen in the vertebral arteries. The external carotid arteries are patent. Blood pressure in the right arm measured 110 mm/Hg. Blood pressure in the left arm measured 128 mm/Hg. IMPRESSION: No evidence of hemodynamically significant carotid stenosis. Electronically signed by: Mateusz Suarez M.D. 08/08/2017 7:43 AM Dictated Date/Time: 08/08/2017 7:42 AM
[2017-08-08] MEDS: LEVETIRACETAM 500 MG TAB PO SCH ×2 (07:59→19:55)
[2017-08-08] MEDS: ROSUVASTATIN CALCIUM 10 MG TAB PO SCH (07:59)
[2017-08-08] MEDS: FENOFIBRATE 145 MG TAB PO SCH (07:59)
[2017-08-08] MEDS: PANTOprazole SOD 40 MG TAB PO SCH (07:59)
[2017-08-08] MEDS: CITALOPRAM 20 MG TAB PO SCH (07:59)
--- NOTE | 2017-08-08 08:41 | Neurology Progress Notes ---
Neurology Progress Note Date of Service Aug 08, 2017. Subjective Follow-up for seizure-like episodes The patient had another episode of confusion with associated shaking of the left upper limb yesterday. A repeat CT of the head was obtained which continued to revealed a small, chronic, right convexity subdural hematoma area no significant change. The patient remains aware during the episodes. After further review of the admission records, including the tele-stroke consultation , it appears as if this patient does have a history of perhaps moderate to heavy alcohol use including beer and hard liquor. He also has a history of multiple sports related concussions many years ago. I reviewed the formal report pertaining to yesterday's bedside EEG. Although I did appreciate to brief episodes of right frontocentral slowing/sharps, the finding was not felt to be significant by Dr. Martins. Keppra was started yesterday for suspected focal motor seizures. Objective Date Time Temp Pulse Resp B/P (MAP) Pulse Ox O2 Delivery O2 Flow Rate FiO2 08/08/17 07:41 36.4 57 20 129/82 (98) 95 Room Air 08/08/17 04:39 36.6 66 18 124/82 (96) 95 08/08/17 04:03 Room Air 08/08/17 00:05 36.6 59 20 125/81 (96) 95 Room Air 08/08/17 00:03 Room Air 08/07/17 20:20 Room Air 08/07/17 19:21 36.9 63 20 114/75 (88) 96 Room Air 08/07/17 16:30 94 Room Air 08/07/17 15:21 36.7 64 18 115/75 (88) 94 Room Air 08/07/17 12:00 Room Air 08/07/17 11:02 36.6 64 18 114/77 (89) 97 Room Air Last 24 Hours Test 08/07/17 11:33 08/08/17 04:17 White Blood Count 4.40 K/uL Red Blood Count 3.83 M/uL Hemoglobin 12.7 g/dL Hematocrit 35.8 % Mean Corpuscular Volume 93.5 fL Mean Corpuscular Hemoglobin 33.2 pg Mean Corpuscular Hemoglobin Concent 35.5 g/dl Platelet Count 141 K/uL Mean Platelet Volume 9.7 fL Neutrophils (%) (Auto) 65.9 % Lymphocytes (%) (Auto) 18.4 % Monocytes (%) (Auto) 9.3 % Eosinophils (%) (Auto) 5.2 % Basophils (%) (Auto) 0.5 % Neutrophils # (Auto) 2.90 K/uL Lymphocytes # (Auto) 0.81 K/uL Monocytes # (Auto) 0.41 K/uL Eosinophils # (Auto) 0.23 K/uL Basophils # (Auto) 0.02 K/uL RDW Standard Deviation 43.4 fL RDW Coefficient of Variation 12.7 % Immature Granulocyte % (Auto) 0.7 % Immature Granulocyte # (Auto) 0.03 K/uL Sodium Level 140 mmol/L Potassium Level 3.8 mmol/L Chloride Level 109 mmol/L Carbon Dioxide Level 23 mmol/L Anion Gap 8.0 mmol/L Blood Urea Nitrogen 8 mg/dl Creatinine 0.73 mg/dl Est Creatinine Clear Calc Drug Dose 144.0 ml/min Estimated GFR () 117.7 Estimated GFR (Non- 101.5 BUN/Creatinine Ratio 10.9 Random Glucose 104 mg/dl Calcium Level 8.4 mg/dl Triglycerides Level 123 mg/dl Cholesterol Level 99 mg/dl HDL Cholesterol 26 mg/dl LDL Cholesterol, Calculated 48 mg/dl VLDL Cholesterol, Calculated 25 mg/dl Cholesterol/HDL Ratio 3.8 Exam: The patient is awake, alert, and fully oriented. Processing speed seems a bit slow, however. Concentration seems slightly impaired as well. He does have some difficulty following multistep commands. Patient exhibits a normal fluent speech pattern and normal vocabulary. Visual rivero full to confrontation. Visual acuity normal. Pupils equal round reactive to light and accommodation. There is no nystagmus. There is no facial droop or facial asymmetry. Tongue and palate are midline. Shoulder shrug and hearing intact. There is no pronator drift or ataxia with finger to nose or heel to alarcon. Muscle tone normal throughout. Strength for the arms and legs normal and symmetric. Current Inpatient Medications Medications (Trade) Dose Ordered Sig/Loyda Route Start Time Stop Time Status Last Admin Dose Admin Gadobutrol (Gadavist) 11 mmol UD PRN IV 08/07/17 02:30 08/11/17 02:29 Miscellaneous Information (Pharmacist Discharge Med Rec Consult) 1 ea UD PRN N/A 08/07/17 03:30 09/06/17 03:29 Heparin Sodium (Porcine) (Heparin Sq 5000 Unit/0.5ml) 5,000 unit Q12 SQ 08/07/17 09:00 09/06/17 08:59 Future Hold Acetaminophen (Tylenol Tab) 650 mg Q4H PRN PO 08/07/17 03:30 09/06/17 03:29 08/08/17 04:13 650 MG Al Hydrox/Mg Hydrox/Simethicone (Maalox Max Susp) 15 ml Q4H PRN PO 08/07/17 03:30 09/06/17 03:29 Magnesium Hydroxide (Milk Of Magnesia Susp) 30 ml Q12H PRN PO 08/07/17 03:30 09/06/17 03:29 Ondansetron HCl (Zofran Inj) 4 mg Q6H PRN IV 08/07/17 03:30 09/06/17 03:29 Polyethylene (Miralax Powder Packet) 17 gm DAILY PRN PO 08/07/17 03:30 09/06/17 03:29 Alprazolam (Xanax Tab) 0.5 mg Q6H PRN PO 08/07/17 03:30 09/06/17 03:29 08/07/17 23:47 0.5 MG Citalopram Hydrobromide (celeXA TAB) 20 mg DAILY PO 08/07/17 09:00 09/06/17 08:59 08/08/17 07:59 20 MG Fenofibrate (Tricor Tab) 145 mg QAM PO 08/07/17 09:00 09/06/17 08:59 08/08/17 07:59 145 MG Rosuvastatin Calcium (Crestor Tab) 10 mg QAM PO 08/07/17 09:00 09/06/17 08:59 08/08/17 07:59 10 MG Pantoprazole Sodium (Protonix Tab) 40 mg QAM PO 08/07/17 09:00 09/06/17 08:59 08/08/17 07:59 40 MG Potassium Chloride/Sodium Chloride 1,000 ml @ 100 mls/hr Q10H IV 08/07/17 05:00 09/06/17 04:59 08/08/17 02:55 100 MLS/HR Albuterol/ Ipratropium (Duoneb) 3 ml Q4R PRN INH 08/07/17 04:15 09/06/17 04:14 Levetiracetam (Keppra Tab) 500 mg BID PO 08/07/17 21:00 09/06/17 20:59 08/08/17 07:59 500 MG Impression I continue to suspect this patient is having focal motor seizures to the left upper extremity related to his subacute right convexity subdural hematoma which appears to be stable on follow-up CT of the head completed last night. Yesterday 's EEG was felt to be unremarkable, however. This patient also appears to have a history of moderate to heavy alcohol consumption. Alcohol withdrawal seizures/delirium tremens may not be excluded. Postconcussive symptomatology also not excluded. Plan I have ordered a repeat EEG to be done this morning. Patient will continue with his current dosage of Keppra. Consider treatment for possible alcohol withdrawal/DTs
[2017-08-08] MEDS ORDERED: GABAPENTIN 800 MG TAB PO SCH (09:15)
[2017-08-08] MEDS ORDERED: MULTIVITAMIN TAB PO ONE (09:30)
--- NOTE | 2017-08-08 09:36 | CARDIOLOGY PROGRESS NOTE ---
DATE: 08/08/2017 SUBJECTIVE: Mr. Hammonds is resting comfortably in bed without complaints of chest pain, dyspnea, syncope, or presyncope. He did have another focal seizure overnight. OBJECTIVE: VITAL SIGNS: Blood pressure is 130/80 with a regular pulse of 60. Respiratory rate is 20 and the patient is afebrile at 36.4 degrees Celsius. Saturations 95% on room air. NECK: Supple with full carotid upstrokes. No carotid bruits. Jugular venous pressure is flat at 90 degrees. There is no thyromegaly. CARDIOVASCULAR: Reveals a regular rhythm with normal S1 and S2. No S3, S4, or murmurs are noted. LUNGS: Clear without rales, rhonchi, or wheezes. ABDOMEN: Soft and nontender without bruits. EXTREMITIES: Reveal intact radial artery pulses bilaterally. There is no peripheral edema. DATA: CBC notes hemoglobin of 12.7, hematocrit 35.8, white count 4.4, platelet count 141,000. Electrolytes note a sodium of 140, potassium 3.8, chloride 109, bicarbonate 23, BUN 8, creatinine 0.73, glucose 104. Lipid panel notes an LDL cholesterol of 48 and an HDL low at 26. 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 No further pauses. IMPRESSION AND PLAN: 1. Sinus arrest -- likely secondary to a high degree of vagal tone during his focal seizure. No further recurrence. Continue to observe on telemetry while hospitalized. No further workup necessary at this time. 2. Subdural hematoma -- per Dr. Hooks. 3. Possible focal seizures -- per Dr. Hooks. 4. Hypertension -- controlled. 5. Hypercholesterolemia -- continue statin and Tricor. 6. History of prostate carcinoma.
[2017-08-08] MEDS ORDERED: GABAPENTIN 800MG LOADING DOSE PO ONE (10:00)
[2017-08-08] MEDS: THIAMINE HCL 100 MG TAB PO SCH (10:09)
--- NOTE | 2017-08-08 13:06 | EEG Procedure Note ---
EEG Procedure Note Date of Service Aug 08, 2017. Start / End Times Start Time: 8:14 AM End Time: 8:34 AM Referring Physician Jose Hooks History This is a 57-year-old male with episodes concerning for focal motor seizures. EEG for further evaluation of seizure etiology. Home Medication List Scheduled Amlodipine (Norvasc), 5 MG PO QAM Citalopram Hydrobromide (Celexa), 1 TAB PO DAILY Fenofibrate (Tricor ), 1 TAB PO QAM Hctz/Losartan (Hyzaar 25MG/100MG), 1 TAB PO QAM Naproxen (Aleve), 220 MG PO BID Omeprazole (Prilosec), 40 MG PO QAM Psyllium (Metamucil), 1 TSP DAILY Rosuvastatin Calcium (Crestor), 10 MG PO QAM Scheduled PRN Acetaminophen/Diphenhydramine (Tylenol Pm), 2 TAB PO HS PRN for Sleep Alprazolam (Xanax), 0.5 MG PO Q6H PRN for Anxiety Inpatient Medication List Current Inpatient Medications Medications (Trade) Dose Ordered Sig/Loyda Route Start Time Stop Time Status Last Admin Dose Admin Gadobutrol (Gadavist) 11 mmol UD PRN IV 08/07/17 02:30 08/11/17 02:29 Miscellaneous Information (Pharmacist Discharge Med Rec Consult) 1 ea UD PRN N/A 08/07/17 03:30 09/06/17 03:29 Heparin Sodium (Porcine) (Heparin Sq 5000 Unit/0.5ml) 5,000 unit Q12 SQ 08/07/17 09:00 09/06/17 08:59 Future Hold Acetaminophen (Tylenol Tab) 650 mg Q4H PRN PO 08/07/17 03:30 09/06/17 03:29 08/08/17 04:13 650 MG Al Hydrox/Mg Hydrox/Simethicone (Maalox Max Susp) 15 ml Q4H PRN PO 08/07/17 03:30 09/06/17 03:29 Magnesium Hydroxide (Milk Of Magnesia Susp) 30 ml Q12H PRN PO 08/07/17 03:30 09/06/17 03:29 Ondansetron HCl (Zofran Inj) 4 mg Q6H PRN IV 08/07/17 03:30 09/06/17 03:29 Polyethylene (Miralax Powder Packet) 17 gm DAILY PRN PO 08/07/17 03:30 09/06/17 03:29 Alprazolam (Xanax Tab) 0.5 mg Q6H PRN PO 08/07/17 03:30 09/06/17 03:29 08/07/17 23:47 0.5 MG Citalopram Hydrobromide (celeXA TAB) 20 mg DAILY PO 08/07/17 09:00 09/06/17 08:59 08/08/17 07:59 20 MG Fenofibrate (Tricor Tab) 145 mg QAM PO 08/07/17 09:00 09/06/17 08:59 08/08/17 07:59 145 MG Rosuvastatin Calcium (Crestor Tab) 10 mg QAM PO 08/07/17 09:00 09/06/17 08:59 08/08/17 07:59 10 MG Pantoprazole Sodium (Protonix Tab) 40 mg QAM PO 08/07/17 09:00 09/06/17 08:59 08/08/17 07:59 40 MG Potassium Chloride/Sodium Chloride 1,000 ml @ 100 mls/hr Q10H IV 08/07/17 05:00 09/06/17 04:59 08/08/17 12:07 100 MLS/HR Albuterol/ Ipratropium (Duoneb) 3 ml Q4R PRN INH 08/07/17 04:15 09/06/17 04:14 Levetiracetam (Keppra Tab) 500 mg BID PO 08/07/17 21:00 09/06/17 20:59 08/08/17 07:59 500 MG Thiamine HCl (Vitamin B-1 Tab) 100 mg DAILY PO 08/08/17 09:30 09/07/17 09:29 08/08/17 10:09 100 MG Multivitamins (Multivitamin Tab) 1 tab QAM PO 08/09/17 09:00 09/08/17 08:59 Gabapentin (Neurontin Cap) 400 mg Q6H PO 08/08/17 16:00 08/08/17 22:01 Gabapentin (Neurontin Cap) 400 mg Q8H PO 08/09/17 06:00 08/09/17 22:01 Gabapentin (Neurontin Cap) 400 mg Q12H PO 08/10/17 10:00 08/10/17 22:01 Gabapentin (Neurontin Cap) 400 mg Q24H PO 08/11/17 22:00 08/11/17 22:01 Description This is a 21 electrode EEG with a single channel dedicated to limited EKG. The electrodes were placed in accordance with the International 10-20 system. There is noted to be frequent diffuse muscle artifacts during the beginning and last portions of this recording. At the start of the recording the patient was in an awake state. Background was well organized and composed of symmetric mixed alpha and beta frequencies. There was a symmetric well-formed moderate amplitude 10-11 Hz posterior dominant rhythm that was reactive to eye opening and closure. Hyperventilation was not done. Intermittent photic stimulation at various frequencies produced no abnormalities. Sleep was indicated by symmetric sleep spindles. Interpretation This is a normal awake and asleep routine EEG. There was no electrographic seizures or epileptiform discharges. Clinical Correlation A normal EEG does not rule out epilepsy if there is a strong clinical suspicion.
[2017-08-08] MEDS: GABAPENTIN 400MG Q6H DOSE PO SCH ×2 (15:49→19:55)
--- NOTE | 2017-08-08 18:02 | Family Medicine Progress Note ---
Progress Note Date of Service Aug 08, 2017. Subjective Voiding: no voiding problems does report another episode of tremors and dizziness reports not having alcohol for a week. Constitutional: No fever, No chills Eyes: No worsening of vision Respiratory: No cough, No sputum, No wheezing, No shortness of breath, No dyspnea on exertion Cardiovascular: No chest pain Abdomen: No pain, No nausea, No vomiting, No diarrhea, No constipation Neurologic: No numbness/tingling, No vertigo, No balance problems Objective Physical Exam General Appearance: no apparent distress Eyes: PERRL, EOMI ENT: hearing grossly normal, TMs normal Neck: supple, no adenopathy Respiratory/Chest: lungs clear, normal breath sounds, no respiratory distress, no accessory muscle use Cardiovascular: regular rate, rhythm, no edema Abdomen: normal bowel sounds, non tender, soft Neurologic/Psychiatric: piece hand II-XII nml as tested, no motor/sensory deficits, alert, normal mood/affect Assessment and Plan This is a 57 y/o M who had a fall 5 days before admission followed by left side arm weakness and tremors after few days came for evaluation 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 Noted to have mild residual weakness of the limb which is probably consistent with a partial Ulises's paralysis.- has improved Continuing to have symptoms intermittently. Repeat CT (3rd) with no change in hematoma No evidence of stroke on MRI Neurology consulted- appreciate reccs EEG without evidence of epileptiform activity Carotid U/S normal continued on Keppra No driving anticoag markers pending *Concern for alcohol withdrawal as a potential contributor to his symptoms. - placed on protocol, gabapentin, MVI Arrhythmia Noted 4 second pause on monitor yesterday- reported having some tremor like activity that coincided with this pause No further episodes noted on Tele Cardiology consulted - likely vasovagal. Continue monitoring overnight. Echo pending Hypotensive on admission- stable pressures HCTZ/losartan and norvasc held Asthma vs copd ? duoneb prn, improvement in wheezing after administration of medication - patient never formally diagnosed and is not on chronic inhalers HPL - continue fenofibrate and rosuvastatin 10 mg Anxiety - continue celexa and alprazolam Dvt prophylaxis heparin held in light of hematoma ambulation scd Reviewed: Pt Seen/Exam by Me History boy this am neurology concerned about alc withdrawal considering the extend of alc he has been drinking Constitutional: denies: fever Respiratory: negative: short of breath Cardiovascular: denies chest pain Neurological/Psych: positive: other (left arm shakiness) General Appearance: no apparent distress Respiratory: lungs clear, no respiratory distress Cardiovascular: regular rate, rhythm Neurologic/Psychiatric: no motor/sensory deficits, alert, oriented x 3 Skin Characteristics: warm/dry Assessment/Plan Resident Physician Supervision Note: I independently interviewed and examined the patient and verified the hoyt history and physical, reviewed labs and image studies, discussed the case with the resident Dr. Ahumada and agree with the findings and care plan.
[2017-08-08] MEDS: ALPRAZOLAM 0.5 MG TAB PO PRN (19:53)
[2017-08-09 03:38] VITALS: BP 139/83; PULSE 58; TEMP 36.6; O2SAT 94
[2017-08-09] MEDS: GABAPENTIN 400MG Q8H DOSE PO SCH ×2 (04:56→12:17)
[2017-08-09 05:45] LABS: BASO % 0.5 %; BASO ABS # 0.02 K/uL (0-0.2); COMPLETE YES; EOS % 5.3 %; HEMATOCRIT 34.9 % (42-52); IG% 0.3 %; LYMPH % 19.3 %; LYMPH ABS # 0.77 K/uL (1.2-3.4); MEAN CELL VOLUME 94.1 fL (80-100); MEAN CORPUSCULAR HEMOGLOBIN 33.4 pg (25-34); MEAN CORPUSCULAR HGB CONC 35.5 g/dl (32-36); MEAN PLATELET VOLUME 9.9 fL (7.4-10.4); MONO % 13.3 %; NEUT % 61.3 %; PLATELET COUNT 141 K/uL (130-400); RED BLOOD COUNT 3.71 M/uL (4.7-6.1); WHITE BLOOD COUNT 3.98 K/uL (4.8-10.8)
[2017-08-09 06:12] LABS: BUN/CREATININE RATIO 11.2 (10-20); CALCIUM 8.9 mg/dl (8.5-10.1); CREATININE 0.74 mg/dl (0.60-1.40); POTASSIUM 3.8 mmol/L (3.5-5.1)
[2017-08-09] MEDS: THIAMINE HCL 100 MG TAB PO SCH (07:25)
[2017-08-09] MEDS: LEVETIRACETAM 500 MG TAB PO SCH (07:25)
[2017-08-09] MEDS: ROSUVASTATIN CALCIUM 10 MG TAB PO SCH (07:25)
[2017-08-09] MEDS: PANTOprazole SOD 40 MG TAB PO SCH (07:25)
[2017-08-09] MEDS: FENOFIBRATE 145 MG TAB PO SCH (07:25)
[2017-08-09] MEDS: CITALOPRAM 20 MG TAB PO SCH (07:26)
[2017-08-09] MEDS: NSS + 20MEQ KCL 1000ML 1,000 ML IV SCH (07:26)
[2017-08-09 08:00] VITALS: BP 137/88; PULSE 54; TEMP 36.6; O2SAT 95
--- NOTE | 2017-08-09 08:31 | Neurology Progress Notes ---
Neurology Progress Note Date of Service Aug 09, 2017. Subjective Follow-up for seizure-like episodes The patient has not had any additional focal motor seizures to the left upper extremity overnight. A repeat electroencephalogram completed yesterday was unremarkable. The patient has been started on gabapentin as part of treatment for suspected alcohol withdrawal. He reports that he is feeling much better this morning. He continues with Keppra 500 mg twice daily for treatment of suspected focal motor seizures of the left upper limb. This patient's last CT of the head completed on August 07 revealed stability of the small right cerebral convexity subdural hematoma. His carotid ultrasound was unremarkable. I did have a discussion today with the patient regarding his history of long- term moderate to heavy alcohol consumption. He seems to recognize this issue is a potential issue and plans to cut back. Objective Date Time Temp Pulse Resp B/P (MAP) Pulse Ox O2 Delivery O2 Flow Rate FiO2 08/09/17 08:00 36.6 54 18 137/88 (104) 95 Room Air 08/09/17 04:00 Room Air 08/09/17 03:38 36.6 58 18 139/83 (101) 94 Room Air 08/08/17 23:59 Room Air 08/08/17 23:51 36.7 57 20 129/81 (97) 96 Room Air 08/08/17 20:00 Room Air 08/08/17 19:00 36.5 59 20 135/82 (99) 96 Room Air 08/08/17 15:10 Room Air 08/08/17 15:00 36.2 59 20 123/82 (96) 96 Room Air 08/08/17 12:00 Room Air 08/08/17 11:10 36.3 55 16 113/68 (83) 97 Room Air Last 24 Hours Test 08/09/17 05:08 White Blood Count 3.98 K/uL Red Blood Count 3.71 M/uL Hemoglobin 12.4 g/dL Hematocrit 34.9 % Mean Corpuscular Volume 94.1 fL Mean Corpuscular Hemoglobin 33.4 pg Mean Corpuscular Hemoglobin Concent 35.5 g/dl Platelet Count 141 K/uL Mean Platelet Volume 9.9 fL Neutrophils (%) (Auto) 61.3 % Lymphocytes (%) (Auto) 19.3 % Monocytes (%) (Auto) 13.3 % Eosinophils (%) (Auto) 5.3 % Basophils (%) (Auto) 0.5 % Neutrophils # (Auto) 2.44 K/uL Lymphocytes # (Auto) 0.77 K/uL Monocytes # (Auto) 0.53 K/uL Eosinophils # (Auto) 0.21 K/uL Basophils # (Auto) 0.02 K/uL RDW Standard Deviation 43.1 fL RDW Coefficient of Variation 12.6 % Immature Granulocyte % (Auto) 0.3 % Immature Granulocyte # (Auto) 0.01 K/uL Sodium Level 140 mmol/L Potassium Level 3.8 mmol/L Chloride Level 109 mmol/L Carbon Dioxide Level 24 mmol/L Anion Gap 7.0 mmol/L Blood Urea Nitrogen 8 mg/dl Creatinine 0.74 mg/dl Est Creatinine Clear Calc Drug Dose 143.1 ml/min Estimated GFR () 117.0 Estimated GFR (Non- 101.0 BUN/Creatinine Ratio 11.2 Random Glucose 97 mg/dl Calcium Level 8.9 mg/dl Exam: The patient is alert and fully oriented. He exhibits normal attention and concentration as well as a normal fluent speech pattern area at recent and remote memory are intact. Visual rivero full to confrontation. Pupils equal round reactive to light and accommodation. Eye movements intact. There is no nystagmus. There is no facial droop. There is normal movement of the tongue and palate. There is no dysmetria with finger to nose or heel to alarcon. There is normal strength for the arms and legs bilaterally. Muscle tone and bulk normal throughout. No tremors, dyskinesias, or other abnormal movements appreciated. Gait and station normal. Current Inpatient Medications Medications (Trade) Dose Ordered Sig/Loyda Route Start Time Stop Time Status Last Admin Dose Admin Gadobutrol (Gadavist) 11 mmol UD PRN IV 08/07/17 02:30 08/11/17 02:29 Heparin Sodium (Porcine) (Heparin Sq 5000 Unit/0.5ml) 5,000 unit Q12 SQ 08/07/17 09:00 09/06/17 08:59 Future Hold Acetaminophen (Tylenol Tab) 650 mg Q4H PRN PO 08/07/17 03:30 09/06/17 03:29 08/08/17 19:54 650 MG Al Hydrox/Mg Hydrox/Simethicone (Maalox Max Susp) 15 ml Q4H PRN PO 08/07/17 03:30 09/06/17 03:29 Magnesium Hydroxide (Milk Of Magnesia Susp) 30 ml Q12H PRN PO 08/07/17 03:30 09/06/17 03:29 Ondansetron HCl (Zofran Inj) 4 mg Q6H PRN IV 08/07/17 03:30 09/06/17 03:29 Polyethylene (Miralax Powder Packet) 17 gm DAILY PRN PO 08/07/17 03:30 09/06/17 03:29 Alprazolam (Xanax Tab) 0.5 mg Q6H PRN PO 08/07/17 03:30 09/06/17 03:29 08/08/17 19:53 0.5 MG Citalopram Hydrobromide (celeXA TAB) 20 mg DAILY PO 08/07/17 09:00 09/06/17 08:59 08/09/17 07:26 20 MG Fenofibrate (Tricor Tab) 145 mg QAM PO 08/07/17 09:00 09/06/17 08:59 08/09/17 07:25 145 MG Rosuvastatin Calcium (Crestor Tab) 10 mg QAM PO 08/07/17 09:00 09/06/17 08:59 08/09/17 07:25 10 MG Pantoprazole Sodium (Protonix Tab) 40 mg QAM PO 08/07/17 09:00 09/06/17 08:59 08/09/17 07:25 40 MG Potassium Chloride/Sodium Chloride 1,000 ml @ 100 mls/hr Q10H IV 08/07/17 05:00 09/06/17 04:59 08/09/17 07:26 100 MLS/HR Albuterol/ Ipratropium (Duoneb) 3 ml Q4R PRN INH 08/07/17 04:15 09/06/17 04:14 Levetiracetam (Keppra Tab) 500 mg BID PO 08/07/17 21:00 09/06/17 20:59 08/09/17 07:25 500 MG Thiamine HCl (Vitamin B-1 Tab) 100 mg DAILY PO 08/08/17 09:30 09/07/17 09:29 08/09/17 07:25 100 MG Multivitamins (Multivitamin Tab) 1 tab QAM PO 08/09/17 09:00 11/19/17 08:59 08/09/17 07:25 1 TAB Gabapentin (Neurontin Cap) 400 mg Q8H PO 08/09/17 06:00 08/09/17 22:01 08/09/17 04:56 400 MG Gabapentin (Neurontin Cap) 400 mg Q12H PO 08/10/17 10:00 08/10/17 22:01 Gabapentin (Neurontin Cap) 400 mg Q24H PO 08/11/17 22:00 08/11/17 22:01 Impression 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 Stable, small, right cerebral convexity subdural hematoma probably sustained in a fall down down the basement steps last Saturday, one week ago. Alcohol withdrawal seizures/delirium tremens may have been a factor during this patient's hospitalization. The issue seems to have greatly improved this morning. History of multiple sports related concussions with possible postconcussive symptomatology related to his recent fall, also greatly improved. Plan I would like this patient to remain on Keppra 500 mg twice daily for treatment of suspected focal motor seizures related to his subdural hematoma. If he remains seizure-free over the next 6 months and I will likely taper off this medication. He'll need follow-up with me in the outpatient clinic for ongoing monitoring of this issue. I would also plan for a repeat gadolinium enhanced brain MRI to be completed in 6-8 weeks to reassess the right convexity subdural hematoma with associated dural enhancement. This patient will need to follow-up with his primary care physician, alcohol counselor, or psychiatrist for further management of potential alcohol abuse as it probably contributed to his symptomatology during this hospitalization. Please contact me if I may be of further assistance.
[2017-08-09] MEDS ORDERED: MULTIVITAMIN TAB PO SCH (09:00)
--- NOTE | 2017-08-09 09:59 | CARDIOLOGY PROGRESS NOTE ---
DATE: 08/09/2017 SUBJECTIVE: Mr. Hammonds is resting comfortably in bedside chair without complaints. He has been ambulatory without difficulty. No syncope or presyncope. No further seizure activities. He is anxious for hospital discharge. OBJECTIVE: VITAL SIGNS: Blood pressure 137/88 with a regular pulse of 54. Respiratory rate is 18 and the patient is afebrile at 36.6 degrees Celsius. Saturation is 95% on room air. NECK: Supple with full carotid upstrokes. No carotid bruits. Jugular venous pressure is flat at 90 degrees. There is no thyromegaly. CARDIOVASCULAR: Reveals a regular rhythm with normal S1 and S2. No S3, S4, or murmurs are noted. LUNGS: Clear without rales, rhonchi, or wheezes. ABDOMEN: Soft and nontender without bruits. EXTREMITIES: Reveal intact radial artery pulses bilaterally. There is no peripheral edema. DATA: CBC notes a hemoglobin of 12.4, hematocrit 34.9, white count 3.9, platelet count 141,000. Electrolytes note a sodium of 140, potassium 3.8, chloride 109, bicarbonate 24, BUN 8, creatinine 0.74, glucose 97. brick burner notes sinus rhythm with an occasional PVC. No pauses. IMPRESSION AND PLAN: 1. Sinus arrest -- likely secondary to vagal tone during a focal seizure. No further recurrence. No further cardiac workup necessary. 2. Subdural hematoma -- per Dr. Hooks. 3. Possible focal seizures -- per Dr. Hooks. 4. Hypertension -- controlled. 5. Hypercholesterolemia -- continue statin and Tricor. 6. History of prostate carcinoma.
[2017-08-09] MEDS ORDERED: GABA1CAP4 PO (11:36)
[2017-08-09] MEDS ORDERED: LEVE500T13 PO (11:36)
--- NOTE | 2017-08-09 11:46 | Discharge Instructions ---
Discharge Instructions Date of Service Aug 09, 2017. Admission Reason for Admission: Left Arm Weakness, Tia Discharge Discharge Diagnosis / Problem: Focal seizure due to subdural hematoma Discharge Goals Goal(s): Improve function Activity Recommendations Activity Limitations: as noted below (No driving until cleared by neurologist. ) With family physician in one week With Dr. Hooks - Please call his office to schedule appointment . Current Hospital Diet Patient's current hospital diet: Regular Diet Discharge Diet Recommended Diet: AHA Diet (Heart Healthy) Pending Studies Studies pending at discharge: no Laboratory Results Hemoglobin A1c Test 08/07/17 05:30 Range/Units Estimated Average Glucose 108 mg/dl Hemoglobin A1c 5.4 4.5-5.6 % Lipid Panel Test 08/08/17 04:17 Range/Units Triglycerides Level 123 0-150 mg/dl Cholesterol Level 99 0-200 mg/dl HDL Cholesterol 26 mg/dl Cholesterol/HDL Ratio 3.8 LDL Cholesterol, Calculated 48 mg/dl Medical Emergencies . Who to Call and When: Medical Emergencies: If at any time you feel your situation is an emergency, please call 911 immediately. . Non-Emergent Contact Non-Emergency issues call your: Primary Care Provider . . "Provider Documentation" section prepared by Nerissa Milton. . VTE Core Measure Inpt VTE Proph given/why not?: Unfractionated heparin SQ
[2017-08-09 11:47] VITALS: BP 103/62; PULSE 52; TEMP 36.6; O2SAT 96
[2017-08-09 12:08] VITALS: BP 103/62; PULSE 52; TEMP 36.6; O2SAT 96
--- NOTE | 2017-08-09 17:18 | Discharge Summary ---
Discharge Summary Date of Service Aug 09, 2017. Discharge Summary Admission Date: Aug 07, 2017 at 03:26 Discharge Date: Aug 09, 2017 Discharge Disposition: Home Principal Diagnosis: Focal seizure Immunizations: Have You Had Influenza Vaccine: Unknown History of Tetanus Vaccine?: Unknown History of Pneumococcal: Unknown History of Hepatitis B Vaccine: Unknown Consultations: Neurology - Dr. Hooks Medication Reconciliation New Medications: Gabapentin (Gabapentin) 300 Mg Cap 1 CAP PO TID, #9 CAP 0 Refills one capsule tid for 2 days, one capsule bid for 1 days, one capsule daily for one day, then stop Levetiracetam (Keppra) 500 Mg Tab 500 MG PO BID for 30 Days, #60 TAB Continued Medications: Acetaminophen/Diphenhydramine (Tylenol Pm) 500 Mg/25 Mg Tab 2 TAB PO HS PRN for Sleep, TAB Alprazolam (Xanax) 0.5 Mg Tab 0.5 MG PO Q6H PRN for Anxiety, TAB Amlodipine (Norvasc) 5 Mg Tab 5 MG PO QAM, TAB Citalopram Hydrobromide (Celexa) 20 Mg Tab 1 TAB PO DAILY for 30 Days, #90 TAB 3 Refills Fenofibrate (Tricor ) 145 Mg Tab 1 TAB PO QAM, TAB Hctz/Losartan (Hyzaar 25MG/100MG) Tab 1 TAB PO QAM, TAB Omeprazole (Prilosec) 40 Mg Capcr 40 MG PO QAM, CAP Psyllium (Metamucil) 48.57 % Pow 1 TSP DAILY Rosuvastatin Calcium (Crestor) 10 Mg Tab 10 MG PO QAM, TAB Discontinued Medications: Naproxen (Aleve) 220 Mg Tab 220 MG PO BID, TAB Discharge Exam Review of Systems: Constitutional: No fever Respiratory: No shortness of breath Cardiovascular: No chest pain Abdomen: No pain Neurologic: No paralysis, No weakness, No numbness/tingling, No balance problems Physical Exam: General Appearance: no apparent distress Respiratory/Chest: lungs clear, no respiratory distress Cardiovascular: regular rate, rhythm Abdomen / GI: normal bowel sounds, non tender, soft Neurologic/Psychiatric: no motor/sensory deficits, alert, normal mood/affect , normal reflexes, oriented x 3 Skin: warm/dry Hospital Course HPI -- 57 y/o M with a history of asthma and htn that is presenting to us with multiple episode of arm weakness/ spasms. He states that the first episode was at approx 1200 yesterday. He was picking up and item and his arm started to spasm and soon after was weak. He noted worsening occipital pain (recent head injury and patient has had a constant right sided STOREY extending to the occipital region since) and numbness in between the thumb and index finger when the spasm resolved. Patient is currently asymptomatic. The patient then had two additional episodes similar in nature and his encouraged him to come to the ED for evaluation. A code stroke was called and CT revealed that the patient had changes concerning for a subdural hematoma but could not be confirmed. Considering the patient had a recent head injury on saturday with onset of headache on saturday the physician was concerned and requested an MRi to confirm. At this point patient was not a candidate for tpa. MRI did not reveal intracranial hemorrhage or acute infarct. Hospital Course - 57 y/o M who had a fall 5 days before admission followed by left side arm weakness and tremors after few days came for evaluation 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 Noted to have mild residual weakness of the limb which is probably consistent with a partial Ulises's paralysis.- has improved Continued to have symptoms intermittently. Repeat CT (3rd) with no change in hematoma No evidence of stroke on MRI Neurology consulted EEG x 2 without evidence of epileptiform activity Carotid U/S normal Started on Keppra - to continue for 6mths Will need MRI in 6-8wks. No driving - DMV Form filed anticoag markers pending *Concern for alcohol withdrawal as a potential contributor to his symptoms. - placed on gabapentin taper. - advised to address this further at his pcp office visit. Arrhythmia Noted 4 second pause on monitor yesterday- reported having some tremor like activity that coincided with this pause No further episodes noted on Tele Cardiology consulted - considered likely vasovagal. Further overnight monitoring with normal monitor findings. Echo Normal Hypotensive on admission- stable pressures HCTZ/losartan and norvasc held during hospital stay. Instructed via post discharge phone call to monitor blood pressure at home and to resume if systolic BP above 130 consistently one at a time. Wheezing on admission - duoneb prn, improvement in wheezing after administration of medication - patient never formally diagnosed with obstructive ds and is not on chronic inhalers HPL - continue fenofibrate and rosuvastatin 10 mg Anxiety - continue celexa and alprazolam - has had problem with sleep disturbance for a while - advised to discuss this further at pcp visit for possibly adding trazodone to help with it. Total Time Spent: Greater than 30 minutes (40) This includes examination of the patient, discharge planning, medication reconciliation, and communication with other providers. Discharge Instructions Please refer to the electronic Patient Visit Report (Discharge Instructions) for additional information. Additional Copies To Matheus Riojas M.D.
[2017-08-10 06:34] LABS: B2 GLYCOPROTEIN IGA <9 SAU (<=20); B2 GLYCOPROTEIN IGG <9 SGU (<=20); B2 GLYCOPROTEIN IGM <9 SMU (<=20); DRVVT MIX INTERPRETAION Not Indicated; LAC PTT SCREEN 44 sec (<=40); LUPUS ANTICOAGULANT** TC36573X Weak Positive (Negative); PHOSPHATIDYLSERINE IGA <20 U/mL (<20); PHOSPHATIDYLSERINE IGG <10 U/mL (<10); PHOSPHATIDYLSERINE IGM <25 U/mL (<25)
[2017-08-10] MEDS ORDERED: GABAPENTIN 400MG Q12H DOSE PO SCH (10:00)
[2017-08-11] MEDS ORDERED: GABAPENTIN 400MG X1 DOSE PO SCH (22:00)
== END 2017-08-09 12:34 | disposition home or self-care (01) | DRG 100 ==
LOC: C.EDB 21:32 → C.2T 08-07 03:26 → ENRESERV 08-07 03:45
PROVIDERS: ADMIT Student in an Organized Health Care Education/Training Program; ATTEND Family Medicine
DX: R56.1 Post traumatic seizures (principal); S06.5X0A Traumatic subdural hemorrhage without loss of consciousness, initial encounter; F10.239 Alcohol dependence with withdrawal, unspecified; G83.84 Todd's paralysis (postepileptic); F17.290 Nicotine dependence, other tobacco product, uncomplicated; I10 Essential (primary) hypertension; Z85.46 Personal history of malignant neoplasm of prostate; E87.6 Hypokalemia; E78.5 Hyperlipidemia, unspecified; F41.9 Anxiety disorder, unspecified; W10.9XXA Fall (on) (from) unspecified stairs and steps, initial encounter; Y92.018 Other place in single-family (private) house as the place of occurrence of the external cause; I95.9 Hypotension, unspecified; R29.700 NIHSS score 0; J45.909 Unspecified asthma, uncomplicated

== ENCOUNTER → 2017-09-04 | Outpatient (CLI) | payer BC ==
[~2017-09-04] MED LIST changes: -ALFU10TA2 PO; -CITA10TA8 PO; +DIPH-437 PO; +GABA1CAP4 PO; +LEVE500T13 PO
[2017-09-04 14:06] VITALS: BP 109/73; PULSE 63; TEMP 36.7; O2SAT 97
--- NOTE | 2017-09-05 06:55 | Radiation Oncology Follow-Up ---
Radiation Oncology Follow-Up Date of Visit Sep 04, 2017. Reason For Visit 6 month follow-up Radiation Completion Date 01/28/17 Diagnosis (1) Prostate cancer Status: Resolved Onset Date: 07/30/2016 Location: both lobes the prostate Histology Subtype: adenocarcinoma Stage: ll (B) Permanent Comment: STAGING: Prostate, adenocarcinoma, triny 3 + 4, PSA 4.65, cT1c, group IIA Prostate gland size by TRUS - 25.1 TREATMENT: 1. Status post prostate seed implant as boost 11/06/2016 43 seeds were placed 8500 cGy 2. Status post completion of IMRT/IGRT completed 01/28/2017 received 4500 cGy Last Edited By: Tricia Solorio on Feb 04, 2017 14:11 History of Present Illness Mr. Hammonds presented with an elevated PSA of 4.65 on 07/12/2016. The patient was then subsequently referred to Dr. Timothy Barakat who recommended a transrectal ultrasound-guided biopsy of the prostate gland. The patient underwent a transrectal ultrasound-guided biopsy on 07/30/2016 which did reveal a prostate gland that measured 25.1 mL. The pathology revealed prostate adenocarcinoma involving 5/15 cores. Avery 3+4 disease was noted in 2 cores and there was 30% involvement of Avery 4 disease in the cores. No perineural invasion was identified. Avery 3+3 disease was also noted. Dr. Barakat has referred the patient was for consideration of radiation therapy. The patient will also meet again with Dr. Barakat discuss the role of surgical resection. Overall, the patient is doing relatively well. He states his urinary obstructive IPSS score is 2/35. His EPIC QOL score is 10/60. He states that he is sexually active however sometimes he does have issues with impotency. He denies any active bleeding from hemorrhoids. He denies any history of inflammatory bowel disease. Denies any history of TURP. Patient ultimately made a decision to undergo prostate seed implant as boost followed by IMRT IGRT. The implant was performed on 11/06/2016. Postoperatively he had increased urinary symptoms and was in contact with Dr. Rizzo's office. He had been on Uroxatral this was changed to tamsulosin. This was then increased to twice a day. He unfortunately developed hives over the mid abdominal area. The tamsulosin was discontinued. He took Benadryl and this resolved without difficulty. He was then placed back on Uroxatral once daily. His AUA's score sheets were reviewed today. On November 11 the AUA was 17. On November 18 AUA score of 17. On November 25 AUA score of 19. On December 02 AUA score was 17. And today December 06 his AUA score is 14. He completed and expanded prostate cancer index composite for clinical practice and gave a score of 0 of 12 and urinary incontinence symptoms. He gave a score of 6 of 12 and urinary irritation symptoms. He gave a score of 0 12 bowel symptoms. He gave a score of 3 of 12 and sexual symptoms. He gave a score of 3 of 12 and hormonal vitality symptoms. His total was 9 of 60. He is also been having some back discomfort as well as groin discomfort. He has a cough which he associates with smoking cigars. He'll undergo CT simulation to begin external beam therapy. He completed IMRT/IGRT 01/28/2017. He received 4500 cGy. Interim History He's been doing well over the past 6 months in regards to his urinary status. Today he gave an AUA score of 4. He completed and expanded prostate cancer index composite for clinical practice and gave a score of 0 of 12 in urinary incontinence symptoms. He gave a score of 2 of 12 and urinary irritation symptoms. He gave a score of 0 12 and bowel symptoms. He gave a score of 6 of 12 and sexual symptoms. He gave a score of 3 of 12 and hormonal vitality symptoms. His total was 11 of 60. He had a recheck PSA 05/06/2017. That was 0.201. This was improved from 0.315 on 02/27/2017. He had a traumatic head injury. Fell down his sellar steps. After the injury he developed focal seizures. He was admitted and started on medication. He was evaluated and found have a subdural hematoma. He is now on anti-seizure medication. Allergies Coded Allergies: BEE STING (Verified Allergy, Severe, ANAPHYLAXIS, 08/06/17) Tamsulosin (Verified Adverse Reaction, Intermediate, Hives , 08/06/17) Home Medications Scheduled Amlodipine (Norvasc), 2.5 MG PO QAM Citalopram Hydrobromide (Celexa), 1 TAB PO DAILY Fenofibrate (Tricor ), 1 TAB PO QAM Hctz/Losartan (Hyzaar 25MG/100MG), 0.5 TAB PO QAM Levetiracetam (Keppra), 500 MG PO BID Omeprazole (Prilosec), 40 MG PO QAM Psyllium (Metamucil), 1 TSP DAILY Rosuvastatin Calcium (Crestor), 10 MG PO QAM Scheduled PRN Alprazolam (Xanax), 0.5 MG PO Q6H PRN for Anxiety Review of Systems Gastrointestinal: Symptoms: WNL Oral: Symptoms: No Problems Respiratory: Symptoms: WNL Urinary: Symptoms: WNL Skin: Symptoms: No Problems Physical Exam Vital Signs Date Time Temp Pulse Resp B/P (MAP) Pulse Ox O2 Delivery O2 Flow Rate FiO2 09/04/17 14:06 36.7 63 20 109/73 97 Fatigue: None General Appearance: no apparent distress Eyes: normal inspection, EOMI ENT: normal ENT inspection, hearing grossly normal Neck: no adenopathy, thyroid normal Respiratory/Chest: no respiratory distress, no accessory muscle use, + crackles (right lung base) Cardiovascular: regular rate, rhythm, no gallop, no murmur Extremities: no pedal edema Neurologic/Psychiatric: no motor/sensory deficits, alert, normal mood/affect Skin: warm/dry Pain Management Pain Location: None Patient Preferred Pain Scale: 0 - 10 Laboratory Studies Test 08/06/17 21:53 08/06/17 22:05 08/06/17 22:08 08/06/17 23:15 Prothrombin Time 10.9 SECONDS (9.0-12.0) Prothrombin Time INR 1.0 (0.9-1.1) PTT 33.1 SECONDS (21.0-31.0) Partial Thromboplastin Ratio 1.3 Total Creatine Kinase 439 U/L (39-308) Creatine Kinase MB 1.0 ng/ml (0.5-3.6) Creatine Kinase MB Ratio 0.2 (0-3.0) Troponin I < 0.015 ng/ml (0-0.045) Lyme Disease IgG Antibody NEG (NEG) Lyme Disease IgM Antibody NEG (NEG) POC Prothrombin Time INR 1.1 (0.9-1.1) POC Glucose 130 mg/dl (70-99) 113 mg/dl (70-99) POC Hemoglobin 13.9 g/dl (14.0-18.0) POC Hematocrit 41 % (42-52) POC Sodium 135 mEq/L (135-144) POC Potassium 3.1 mEq/L (3.3-5.0) POC Chloride 98 mEq/L (101-112) POC Total CO2 22 mEq/l (24-31) POC Blood Urea Nitrogen 10 mg/dl (7-18) POC Creatinine 0.8 mg/dl (0.6-1.3) POC Ionized Calcium (Kathy) 1.22 mmol/l (1.12-1.32) Urine Color YELLOW Urine Appearance CLEAR (CLEAR) Urine pH 6.5 (4.5-7.5) Urine Specific [place] 1.007 (1.000-1.030) Urine Protein NEG (NEG) Urine Glucose (UA) NEG (NEG) Urine Ketones NEG (NEG) Urine Occult Blood 1+ (NEG) Urine Nitrite NEG (NEG) Urine Bilirubin NEG (NEG) Urine Urobilinogen NEG (NEG) Urine Leukocyte Esterase NEG (NEG) Urine WBC (Auto) 1-5 /hpf (0-5) Urine RBC (Auto) 0-4 /hpf (0-4) Urine Hyaline Casts (Auto) 0 /lpf (0-5) Urine Epithelial Cells (Auto) 0-5 /lpf (0-5) Urine Bacteria (Auto) NEG (NEG) Test 08/07/17 05:00 08/07/17 05:30 08/07/17 05:34 08/08/17 04:17 POC Glucose 116 mg/dl (70-99) Estimated Average Glucose 108 mg/dl Hemoglobin A1c 5.4 % (4.5-5.6) Homocysteine 14.0 UMOL/L (<11.4) Lupus Anticoagulant see note Lupus Anticoagulant PTT 44 sec (<=40) Dilute Pedro Viper Venom (Lupus) 38 sec (<=45) dRVVT Mix Interpretation Not Indicated Hexagonal Phase Confirmation Weak Positive (Negative) Ycxi-2-Rvqujytackrij 1.52 MG/L (0.00-2.51) Emxf-lsgd-7-Glycoprotein I IgG Ab <9 SGU (<=20) Eavv-zkfu-8-Glycoprotein I IgA Ab <9 IRISH (<=20) Ifdm-yuwg-7-Glycoprotein I IgM Ab <9 SMU (<=20) Phosphatidylserine IgG Antibody <10 U/mL (<10) Phosphatidylserine IgA Antibody <20 U/mL (<20) Phosphatidylserine IgM Antibody <25 U/mL (<25) Anti-Phospholipid Antibody Comment see note Anti-Cardiolipin IgG Antibody <14 GPL (<=14) Anti-Cardiolipin IgA Antibody <11 APL (<=11) Anti-Cardiolipin IgM Antibody <12 MPL (<=12) White Blood Count 4.40 K/uL (4.8-10.8) Red Blood Count 3.83 M/uL (4.7-6.1) Hemoglobin 12.7 g/dL (14.0-18.0) Hematocrit 35.8 % (42-52) Mean Corpuscular Volume 93.5 fL (80-100) Mean Corpuscular Hemoglobin 33.2 pg (25-34) Mean Corpuscular Hemoglobin Concent 35.5 g/dl (32-36) Platelet Count 141 K/uL (130-400) Mean Platelet Volume 9.7 fL (7.4-10.4) Neutrophils (%) (Auto) 65.9 % Lymphocytes (%) (Auto) 18.4 % Monocytes (%) (Auto) 9.3 % Eosinophils (%) (Auto) 5.2 % Basophils (%) (Auto) 0.5 % Neutrophils # (Auto) 2.90 K/uL (1.4-6.5) Lymphocytes # (Auto) 0.81 K/uL (1.2-3.4) Monocytes # (Auto) 0.41 K/uL (0.11-0.59) Eosinophils # (Auto) 0.23 K/uL (0-0.5) Basophils # (Auto) 0.02 K/uL (0-0.2) RDW Standard Deviation 43.4 fL (36.4-46.3) RDW Coefficient of Variation 12.7 % (11.5-14.5) Immature Granulocyte % (Auto) 0.7 % Immature Granulocyte # (Auto) 0.03 K/uL (0.00-0.02) Sodium Level 140 mmol/L (136-145) Potassium Level 3.8 mmol/L (3.5-5.1) Chloride Level 109 mmol/L (98-107) Carbon Dioxide Level 23 mmol/L (21-32) Anion Gap 8.0 mmol/L (3-11) Blood Urea Nitrogen 8 mg/dl (7-18) Creatinine 0.73 mg/dl (0.60-1.40) Est Creatinine Clear Calc Drug Dose 144.0 ml/min Estimated GFR () 117.7 Estimated GFR (Non- 101.5 BUN/Creatinine Ratio 10.9 (10-20) Random Glucose 104 mg/dl (70-99) Calcium Level 8.4 mg/dl (8.5-10.1) Triglycerides Level 123 mg/dl (0-150) Cholesterol Level 99 mg/dl (0-200) HDL Cholesterol 26 mg/dl LDL Cholesterol, Calculated 48 mg/dl VLDL Cholesterol, Calculated 25 mg/dl Cholesterol/HDL Ratio 3.8 Test 08/09/17 05:08 09/04/17 14:47 White Blood Count 3.98 K/uL (4.8-10.8) Red Blood Count 3.71 M/uL (4.7-6.1) Hemoglobin 12.4 g/dL (14.0-18.0) Hematocrit 34.9 % (42-52) Mean Corpuscular Volume 94.1 fL (80-100) Mean Corpuscular Hemoglobin 33.4 pg (25-34) Mean Corpuscular Hemoglobin Concent 35.5 g/dl (32-36) Platelet Count 141 K/uL (130-400) Mean Platelet Volume 9.9 fL (7.4-10.4) Neutrophils (%) (Auto) 61.3 % Lymphocytes (%) (Auto) 19.3 % Monocytes (%) (Auto) 13.3 % Eosinophils (%) (Auto) 5.3 % Basophils (%) (Auto) 0.5 % Neutrophils # (Auto) 2.44 K/uL (1.4-6.5) Lymphocytes # (Auto) 0.77 K/uL (1.2-3.4) Monocytes # (Auto) 0.53 K/uL (0.11-0.59) Eosinophils # (Auto) 0.21 K/uL (0-0.5) Basophils # (Auto) 0.02 K/uL (0-0.2) RDW Standard Deviation 43.1 fL (36.4-46.3) RDW Coefficient of Variation 12.6 % (11.5-14.5) Immature Granulocyte % (Auto) 0.3 % Immature Granulocyte # (Auto) 0.01 K/uL (0.00-0.02) Sodium Level 140 mmol/L (136-145) Potassium Level 3.8 mmol/L (3.5-5.1) Chloride Level 109 mmol/L (98-107) Carbon Dioxide Level 24 mmol/L (21-32) Anion Gap 7.0 mmol/L (3-11) Blood Urea Nitrogen 8 mg/dl (7-18) Creatinine 0.74 mg/dl (0.60-1.40) Est Creatinine Clear Calc Drug Dose 143.1 ml/min Estimated GFR () 117.0 Estimated GFR (Non- 101.0 BUN/Creatinine Ratio 11.2 (10-20) Random Glucose 97 mg/dl (70-99) Calcium Level 8.9 mg/dl (8.5-10.1) Prostate Specific Antigen 0.059 ng/ml (0.000-4.000) Assessment & Plan Plan: PSA was drawn today. He'll be notified as to results. He was seen by Dr. Cottrell. He'll continue follow-up with Dr. Rizzo. He'll be seeing him in February. We discussed the findings of the mild crackles in the right lung base. He has had a cough of late. I've asked him to make an appointment with his primary care provider to have this evaluated. We asked him to return to our office in 1 year. He may call if he has any questions or concerns in the interim. Assessment & Plan (Attending) ADDENDUM: I agree with note created by Tricia Solorio PA-C. I reviewed the patient's chart and information with her. I have examined and evaluated the patient. I reviewed relevant clinical information and answered the patient's and /or family's questions. BLOOD TESTER Total Time In Follow-Up I spent 20 minutes speaking to the patient performing examination. I spent 15 minutes reviewing information completing this note. Total Time (Attending) In Follow-Up I spent 15 minutes examining and counseling the patient. BLOOD TESTER Copy To Matheus Riojas M.D.; Gaudencio Rizzo MD
== END | disposition home or self-care (01) ==
LOC: C.ONC 13:56
PROVIDERS: ATTEND Physician Assistant Medical
DX: Z08 Encounter for follow-up examination after completed treatment for malignant neoplasm (principal); Z92.3 Personal history of irradiation; Z85.46 Personal history of malignant neoplasm of prostate

== ENCOUNTER → 2017-10-23 | Outpatient (CLI) | payer BC ==
[~2017-10-23] MED LIST changes: -AMLO-110 PO; +AMLO5TAB3 PO; -DIPH-437 PO; +FENO1TAB25 PO; -GABA1CAP4 PO; +GADAVIST IV PRN; +OMEP-334 PO; +OXYC-57 PO
--- NOTE | 2017-10-23 13:55 | DIAGNOSTIC IMAGING REPORT ---
BRAIN COMBO FOR SEIZURE HISTORY: 57 years-old Male G40.109 Focal motor seizure [id number] Chronic subdural ike follow-up study in a patient with chronic subdural hematoma COMPARISON: Head CT 08/07/2017, brain MR 08/07/2017 TECHNIQUE: Multiplanar multisequence MRI the brain was obtained both with and without the use of 11 mL Gadavist utilizing seizure protocol. FINDINGS: There is no restricted diffusion to suggest acute infarction. The midline structures including the corpus callosum, brainstem, optic chiasm, pituitary gland and infundibulum, pineal gland and cerebellar tonsils appear unremarkable on the sagittal T1 series. The previously described tiny subdural hematoma over the right convexity is not identified on the coronal T2 FLAIR images, however there is persistent diffuse enhancement involving the pachymeninges of the right cerebral hemisphere which appears unchanged from comparison. No acute intracranial hemorrhage, hydrocephalus or midline shift. Multifocal areas of T2/FLAIR prolongation again seen within the subcortical, deep and periventricular white matter of the cerebral hemispheres bilaterally suggesting chronic microvascular ischemic changes. No areas of new intra-axial or extra-axial enhancement from comparison study. No evidence of mesial temporal sclerosis. The bilateral medial temporal lobes appear to be within normal limits. No seizure focus or evidence of cortical dysplasia. No intra-axial mass identified. The major flow voids at the level of the skull base appear patent. Trace left mastoid effusion. Mild polypoid mucosal disease of the left maxillary sinus. Mild mucosal thickening of the ethmoid air cells. Orbits are unremarkable. The scalp, calvarium and soft tissues are within normal limits. IMPRESSION: 1. Unchanged homogeneous pachymeningeal enhancement of the right cerebellar hemisphere is again seen corresponding to chronic subdural hematoma which appears to have decreased in size as above. 2. No acute intracranial hemorrhage, midline shift, hydrocephalus or infarction identified. 3. Probable chronic microvascular ischemic changes redemonstrated. The above report was generated using voice recognition software. It may contain grammatical, syntax or spelling errors. Electronically signed by: Vineet Orta M.D. 10/23/2017 1:54 PM Dictated Date/Time: 10/23/2017 1:38 PM
== END | disposition home or self-care (01) ==
LOC: C.MRIBC 12:27
PROVIDERS: ATTEND Psychiatry & Neurology Neurology
DX: G40.109 Localization-related (focal) (partial) symptomatic epilepsy and epileptic syndromes with simple partial seizures, not intractable, without status epilepticus (principal); I62.03 Nontraumatic chronic subdural hemorrhage

== ENCOUNTER → 2018-03-03 | Outpatient (CLI) | payer BC ==
[~2018-03-03] MED LIST changes: +AMLO-110 PO; -AMLO5TAB3 PO; -FENO1TAB25 PO; -GADAVIST IV PRN; -OMEP-334 PO; -OXYC-57 PO
== END | disposition home or self-care (01) ==
LOC: C.LABPBG 15:22
PROVIDERS: ATTEND Nurse Practitioner Family
DX: R31.0 Gross hematuria (principal)

== ENCOUNTER → 2018-03-05 | Outpatient (CLI) | payer BC ==
[~2018-03-05] MED LIST changes: +OPTIRAY 320 IV PRN
--- NOTE | 2018-03-05 17:55 | DIAGNOSTIC IMAGING REPORT ---
ABD/PELVIS COMBO HISTORY: 57 years-old Male GROSS HEMATURIA acute hematuria COMPARISON: CT abdomen and pelvis 08/18/2016 TECHNIQUE: Multiple axial CT images of the abdomen and pelvis were obtained both with and without the use of 120 mL Optiray 320 IV contrast. A dose lowering technique was used consistent with the principals of SUNIL. FINDINGS: Mild dependent subsegmental bibasilar atelectasis. 2 mm calcified granuloma of the posterior basal segment right lower lobe. No pneumatosis or pneumoperitoneum identified. The imaged inferior cardiac chambers are unremarkable. Coronary arterial calcifications are seen. Prior cholecystectomy. 1.2 cm calcification of the inferior right hepatic lobe. Hepatomegaly with hepatic steatosis. No intrahepatic biliary ductal dilation. Spleen measures 15 cm in length. Pancreas and adrenal glands are unremarkable. Moderate bilateral perinephric stranding without renal calculi or hydronephrosis. No filling defects identified within the renal collecting systems or ureters. Bilateral ureteral jets are noted. There is moderate circumferential wall thickening about the urinary bladder. Minimal perivesicular inflammatory stranding. Brachy therapy seeds are noted within an enlarged prostate. Small fat filled left inguinal hernia. Moderate atherosclerosis of the aorta without aneurysm. No bulky adenopathy. No bowel obstruction. Extensive colonic diverticulosis without diverticulitis. Normal appendix. Soft tissues are unremarkable. Unchanged bone island about the left femoral head. There are no suspicious lytic or blastic bony lesions identified. IMPRESSION: 1. Moderate circumferential wall thickening of the bladder with perivesicular stranding. Correlate with urinalysis to exclude cystitis. 2. No renal calculi or obstructive uropathy. 3. Extensive colonic diverticulosis without diverticulitis. 4. Hepatic steatosis. 5. Additional findings as above. The above report was generated using voice recognition software. It may contain grammatical, syntax or spelling errors. Electronically signed by: Vineet Orta M.D. 03/05/2018 5:54 PM Dictated Date/Time: 03/05/2018 5:47 PM
== END | disposition home or self-care (01) ==
LOC: C.CTS 16:12
PROVIDERS: ATTEND Nurse Practitioner Family
DX: R31.9 Hematuria, unspecified (principal)

== ENCOUNTER 2019-03-21 18:48 | Inpatient (IN) ==
--- OUTSIDE RECORDS SUMMARY | 2019-03-21 18:53 | External Medical Summary | Continuity of Care Document ---
:1960 Author Name Nakia Liu, Provider Address Unavailable Unavailable , Care Team Providers Name Role Phone Neva Liu, Jose Carrasco Unavailable [email or web address], C Unavailable Unavailable Unavailable Unavailable Unavailable Problems Restless legs syndrome (RLS) (333.94) (G25.81) SDH (subdural hematoma) (432.1) (S06.5X9A) Tremor (781.0) (R25.1) Gross hematuria (599.71) (R31.0) Hypercholesterolemia (272.0) (E78.00) Seizure disorder (345.90) (G40.909) Anxiety (300.00) (F41.9) Erectile dysfunction (607.84) (N52.9) Hypertension (401.9) (I10) Elevated PSA (790.93) (R97.20) Urinary symptom or sign (788.99) (R39.9) Prostate cancer (185) (C61) Allergies and Adverse Reactions Tamsulosin HCl CAPS (Allergy) Reaction: Rash, Hives Bee sting (Allergy) Medications Pantoprazole Sodium 40 MG Oral Tablet De layed Release; TAKE 1 TABLET DAILY 30 MINUTES BEFORE BREAKFAST Quantity: 30 Refills: 11 Citalopram Hydrobromide 20 MG Oral Tablet; TAKE 1 TABLET YANIRA LY. Quantity: 30 Refills: 5 Crestor 10 MG Oral Tablet; TAKE 1 TABLET DAILY. Refills: 0 Fenofibrate 145 MG Oral Tablet; TAKE 1 TABLET DAILY. Refills: 0 levETIRAcetam 500 MG Oral Tablet; take 1 tablet by twice a day Noe Hooks Quantity: 60 Refills: 5 rOPINIRole HCl - 1 MG Oral Tablet; TAKE ONE TABLET TWO HOURS BEFORE BEDTIME Noe Hooks Start: 12-Dec-2018 Quantity: 90 Refills: 0 Melatonin 3 MG Oral Tablet; TAKE DIRECTED. Refills: 0 Procedures Total PSA Date: 26-Jan-2019 Immunizations Immunizations not documented Family History Father Family history of diabetes mellitus (V18.0) (Z83.3) Status: Active Family history of hypertension (V17.49) (Z82.49) Status: Act cain Family history of Colon carcinoma (153.9) (C18.9) Status: Ac tive Sister Family history of diabetes mellitus (V18.0) (Z83.3) Status: Active Brother Family history of diabetes mellitus (V18.0) (Z83.3) Status: Active Social History - Smoking Status Current some day smoker Plan of Treatment Planned Encounters Appointment; Jose Hooks M.D. Start: 14-Apr-2019 10:00 Req uest Planned Observations Planned Goals not documented Results No Known Results Results not documented Encounters Appointment; Fred Rizzo M.D. 26-Jan-2019 9:30 Encounter Diagnosis: Problem not documented Appointment; Jose Hooks M.D. 12-Dec-2018 9:30 Encounter Diagnosis: Problem not documented Appointment; Jose Hooks M.D. 11-Aug-2018 13:45 Encounter Diagnosis: Problem not documented Appointment; Fred Rizzo M.D. 01-Apr-2018 14:05 Encounter Diagnosis: Problem not documented Appointment; Fred Rizzo M.D. 24-Mar-2018 7:00 Encounter Diagnosis: Problem not documented Appointment; Fred Rizzo M.D. 11-Mar-2018 14:15 Encounter Diagnosis: Problem not documented Appointment; Jose Hooks M.D. 10-Feb-2018 14:30 Encounter Diagnosis: Problem not documented Appointment; Jose Hooks M.D. 18-Nov-2017 13:00 Encounter Diagnosis: Problem not documented Appointment; Jose Hooks M.D. 16-Aug-2017 9:30 Encounter Diagnosis: Problem not documented Appointment; Fred Rizzo M.D. 14-May-2017 9:40 Encounter Diagnosis: Problem not documented Appointment; Jose Hooks M.D. 14-Apr-2019 10:00 Encounter Diagnosis: Problem not documented
--- NOTE | 2019-03-21 19:22 | XRay Report ---
XR chest 1V portable CLINICAL HISTORY: Atypical chest pain COMPARISON STUDY: 09/13/2018 FINDINGS: The cardiac and mediastinal contours are normal. There is no evidence of focal pulmonary co nsolidation. There is no evidence of failure. No pleural effusions are visualized.[ IMPRESSION: No active disease in the chest. Electronically signed by: Mateusz Suarez M.D. 03/21/2019 7:21 PM
[2019-03-21] MEDS ORDERED: MULTI-VITAMIN INFUSION 10 ML, THIAMINE HCL 100 MG, FOLIC ACID 1 MG in SODIUM CHLORIDE 0... IV STA (20:18)
[2019-03-21 20:19] LABS: Basophils # (auto) 0.01 K/uL (0-0.2); Basophils % (auto) 0.2 %; Eosinophils # (auto) 0.08 K/uL (0-0.5); Eosinophils % (auto) 1.8 %; Hematocrit (blood only) 43.4 % (42-52); Hemoglobin 15.7 g/dL (14.0-18.0); Immature Granulocytes # (auto) 0.02 K/uL (0.00-0.02); Immature Granulocytes % (auto) 0.5 %; Lymphocytes # (auto) 1.31 K/uL (1.2-3.4); Lymphocytes % (auto) 29.7 %; Mean Corpuscular Hgb Conc 36.2 g/dL (32-36); Mean Platelet Volume 9.1 fL (7.4-10.4); Monocytes # (auto) 0.52 K/uL (0.11-0.59); Monocytes % (auto) 11.8 %; Neutrophils # (auto) 2.47 K/uL (1.4-6.5); Platelet Count 106 K/uL (130-400); RDW Coefficient of Variation 14.6 % (11.5-14.5); RDW Standard Deviation 48.5 fL (36.4-46.3); Red Blood Count 4.82 M/uL (4.7-6.1); White Blood Count 4.41 K/uL (4.8-10.8)
[2019-03-21 20:22] LABS: Appearance Urine Clear (Clear); Bilirubin Urine Negative (Negative); Blood Urine Negative (Negative); Color Urine Yellow; Glucose Urine UA Negative (Negative); Ketones Urine Negative (Negative); Leukocyte Esterase Urine Negative (Negative); Nitrite Urine Negative (Negative); Protein Urine Negative (Negative); Specific Gravity Urine 1.013 (1.000-1.030); Urobilinogen Urine Negative (Negative)
[2019-03-21 20:36] LABS: Alanine Aminotransferase 39 U/L (12-78); Albumin Level 3.5 gm/dl (3.4-5.0); Aspartate Aminotransferase 55 U/L (15-37); BUN Creatinine Ratio 12.9 (10-20); Blood Urea Nitrogen 10 mg/dl (7-18); Calcium 8.5 mg/dl (8.5-10.1); Carbon Dioxide 24 mmol/L (21-32); Chloride 109 mmol/L (98-107); Creatinine Clr Calc Pharmacy 143.1 ml/min; Est GFR (African American) 116.2; Est GFR (Non-African American) 100.3; Glucose 74 mg/dl (70-99); Potassium 3.3 mmol/L (3.5-5.1); Sodium 143 mmol/L (136-145)
[2019-03-21 20:45] LABS: Acetaminophen < 2 ug/ml (10-30)
[2019-03-21 20:47] LABS: Albumin Globulin Ratio 0.8 (0.9-2); Alkaline Phosphatase 93 U/L (45-117); Bilirubin,Total 0.5 mg/dl (0.2-1); Globulin 4.2 gm/dl (2.5-4.0); Total Protein 7.7 gm/dl (6.4-8.2); Troponin I < 0.015 ng/ml (0-0.045)
[2019-03-21] MEDS ORDERED: LORazepam 1 MG/2 ML VIAL IV STA (20:50)
[2019-03-21 20:52] LABS: Amphetamines+Metham, Urine Neg (Neg); Barbiturates, Urine Neg (Neg); Benzodiazepine, Urine Neg (Neg); Cocaine, Urine Neg (Neg); MDMA (Ecstacy), Urine Neg (Neg); Methadone, Urine Neg (Neg); Opiate, Urine Neg (Neg); Phencyclidine, Urine Neg (Neg)
[2019-03-21] MEDS ORDERED: POTASSIUM CHLORIDE 20 MEQ TABCR PO STA (21:53)
--- NOTE | 2019-03-22 00:30 | Emergency Department Note ---
Entered by Kimi Duncan acting as a scribe for History of Present Illness General Chief complaint: Mental Health Evaluation Stated complaint: CHEST PAIN Time Seen by Provider: 03/21/19 18:50 Source: patient Limitations: no limitations History of Present Illness Onset (ago): hour(s) (last night) Location: head Pain Consistency: + other (worsening) Quality: + other (suicidal ideations) Associated symptoms: + chest pain and + other (congestion, hearing voices); no cough, no fever/chills, no nausea/vomiting and no shortness of breath The patient is a 58 year old male who presents to the ED complaining of suicidal ideations that worsened last night. He reports that he has been having suicidal ideations since his "brain bleed" that was 6 months ago, noting that he was forced to retire. The patient believes that his snf is the cause of his symptoms today. He complains of feeling hopeless, noting that he "stopped by the [employer] store to buy a pistol and shoot himself last night." The patient denies hearing voices, fevers/chills, nausea/vomiting, congestion, cough, and SOB. He notes that he takes citalopram prescribed by his PCP. The patient denies any past admissions to the hospital for mental health treatment. He states that his took him to the [facility] this evening for his suicidal ideations, but he was referred to the ED for intermittent chest pain. The patient describes the chest pain to be in his upper left chest, noting that pressure worsens and relieves the symptoms. He complains that movement worsens the pain. He states that this episode of chest pain began a few hours ago, noting that this is similar to his previous episodes of panic attacks. The patient notes that he has been going to the gym recently. He states that he drinks alcohol most days, noting that it's been 3 months since he's went a few days without drinking. The patient reports that he went through withdrawal at that time. He states that he regularly smokes cigars. Home Medications Home Medications Medication Instructions Recorded Confirmed Type citalopram 20 mg PO QAM 09/13/18 03/21/19 History rosuvastatin [Crestor] 10 mg PO DAILY 09/13/18 03/21/19 History epinephrine [EpiPen] 0.3 mg IM DIRECTED PRN 03/21/19 03/21/19 History levetiracetam 500 mg PO BID 03/21/19 03/21/19 History melatonin 3 mg PO HS 03/21/19 03/21/19 History pantoprazole 40 mg PO QAM 03/21/19 03/21/19 History ropinirole 0.5 mg PO QPM 03/21/19 03/21/19 History Allergies Allergy/AdvReac Type Severity Reaction Status Date / Time bee venom protein (honey bee) Allergy Severe ANAPHYLAXIS Verified 09/13/18 22:23 cat dander Allergy Intermediate Itchy/Watery Verified 03/21/19 22:33 Eyes, Itchy throat tamsulosin Allergy Intermediate Hives Verified 09/13/18 22:23 Past Med/Surg History Medical History Hypertension (Chronic) Hyperlipidemia (Chronic) Anxiety (Chronic) Diverticulosis (Chronic) Left arm weakness Prostate cancer (Resolved 07/30/16) "STAGING: Prostate, adenocarcinoma, triny 3 + 4, PSA 4.65, cT1c, group IIA Prostate gland size by TRUS - 25.1 TREATMENT: 1. Status post prostate seed implant as boost 11/06/2016 43 seeds were placed 8500 cGy 2. Status post completion of IMRT/IGRT completed 01/28/2017 received 4500 cGy" On 12/06/16 15:38 Tricia Solorio wrote "STAGING: Prostate, adenocarcinoma, triny 3 + 4, PSA 4.65, cT1c, group IIA Prostate gland size by TRUS - 25.1 TREATMENT: 1. Status post prostate seed implant as boost 11/06/2016 43 seeds were placed 8500 cGy" On 08/22/16 10:51 Cristofer Cottrell wrote "STAGING: Prostate, adenocarcinoma, triny 3 + 4, PSA 4.65, cT1c, group IIA Prostate gland size by TRUS - 25.1 " TIA (transient ischemic attack) Social History Feels Safe at Home: Yes Smoking Status: Current every day smoker Review of Systems See HPI for pertinent positives & negatives. and A total of 10 systems reviewed and were otherwise negative Physical Exam Vital Signs Vital Signs - 24 hr 03/21/19 19:08 03/21/19 21:37 Temperature 36.7 C 36.6 C Temperature Source Oral Oral Sepsis Recent Fever Within 48 Hours No Sepsis New/Unexplained Change in Mental Status No Sepsis Action Taken by Nursing No Action Required Pulse Rate 74 Pulse Rate [Right Finger] 78 Pulse Rhythm [Right Finger] Regular Pulse Strength [Right Finger] Normal Respiratory Rate 18 18 Respiratory Effort / Characteristics Non-Labored Spontaneous Respiratory Depth Normal Respiratory Pattern Regular Blood Pressure 148/87 H Blood Pressure [Left Arm] 127/72 Blood Pressure Mean 107 Blood Pressure Mean [Left Arm] 90 Blood Pressure Position [Left Arm] Lying Pulse Oximetry 94 92 Oxygen Delivery Method Room Air Room Air GENERAL: Awake, alert, anxious-appearing, in no distress HENT: Normocephalic, atraumatic. Oropharynx with dry mucous membranes and otherwise unremarkable. EYES: Normal conjunctiva. Sclera non-icteric. NECK: Supple. No nuchal rigidity. FROM. No JVD. RESPIRATORY: CTAB. CARDIAC: Regular rate, normal rhythm. Extremities warm and well perfused. Pulses equal. CHEST: Reproducible left anterior wall tenderness. Reproducible pain with shoulder external rotation abduction. ABDOMEN: Soft, non-distended. No tenderness to palpation. No rebound or guarding. No masses. RECTAL: Deferred. MUSCULOSKELETAL: Chest examination reveals no tenderness. The back is symmetrical on inspection without obvious abnormality. There is no CVA tenderness to palpation. No joint edema. LOWER EXTREMITIES: Calves are equal size bilaterally and non-tender. No edema. No discoloration. NEURO: Normal sensorium. No sensory or motor deficits noted. SKIN: No rash or jaundice noted. PSYCH: Positive SI with plan. Denies hallucination. Positive alcohol use. Positive hopelessness. Course 1851: The patient was evaluated in room A06. A complete history and physical exam was performed. 0230: The patient was signed out to Dr. Gillis at the change of shift. The patient is awaiting possible placement at [address] [place] [address]. Administered Medications Discontinued Medications Multivitamins 10 ml/ Thiamine HCl 100 mg/ Folic Acid 1 mg/Sodium Chloride 1,011.2 mls @ 1,011.2 mls/hr IV .Q1H STA Stop: 03/21/19 21:17 Last Infusion: 03/21/19 21:31 Dose: 0 mls/hr Documented by: [id number] Admin: 03/21/19 20:30 Dose: 1,011.2 mls/hr Documented by: [id number] Lorazepam (Ativan) 1 mg in 2 mls @ 2 mls/min IV NOW STA Stop: 03/21/19 20:51 Last Admin: 03/21/19 20:55 Dose: 2 mls/min Documented by: [id number] Potassium Chloride (Klor-Con M20) 40 meq PO NOW STA Stop: 03/21/19 21:54 Last Admin: 03/21/19 22:18 Dose: 40 meq Documented by: [id number] Medical Decision Making Differential Diagnosis Etiologies such as psychiatric disorder, infection, hypoglycemia, electrolyte abnormalities, cardiac sources, intracerebral event, toxicological process, neurologic disorder, as well as others were entertained. Medical Records Attestation: I reviewed the patient's medical records. Home Medications Current Medication List: was personally reviewed by me Laboratory Data Attestation: I reviewed the patient's lab results. Result diagrams: 03/21/19 20:01 03/21/19 20:01 Lab Results 03/21/19 03/21/19 03/21/19 Range/Units 19:45 19:45 20:01 WBC 4.41 L (4.8-10.8) K/uL RBC 4.82 (4.7-6.1) M/uL Hgb 15.7 (14.0-18.0) g/dL Hct 43.4 (42-52) % MCV 90.0 (80-100) fL MCH 32.6 (25-34) pg MCHC 36.2 H (32-36) g/dL RDW Std Deviation 48.5 H (36.4-46.3) fL RDW Coeff of Antonio 14.6 H (11.5-14.5) % Plt Count 106 L (130-400) K/uL MPV 9.1 (7.4-10.4) fL Immature Gran % (Auto) 0.5 % Neut % (Auto) 56.0 % Lymph % (Auto) 29.7 % Nicholas % (Auto) 11.8 % Eos % (Auto) 1.8 % Baso % (Auto) 0.2 % Immature Gran # (Auto) 0.02 (0.00-0.02) K/uL Neut # (Auto) 2.47 (1.4-6.5) K/uL Lymph # (Auto) 1.31 (1.2-3.4) K/uL Nicholas # (Auto) 0.52 (0.11-0.59) K/uL Eos # (Auto) 0.08 (0-0.5) K/uL Baso # (Auto) 0.01 (0-0.2) K/uL Sodium (136-145) mmol/L Potassium (3.5-5.1) mmol/L Chloride (98-107) mmol/L Carbon Dioxide (21-32) mmol/L Anion Gap (3-11) BUN (7-18) mg/dl Creatinine (0.6-1.4) mg/dl Est Cr Clr Drug Dosing ml/min Est GFR ( Amer) Est GFR (Non-Af Amer) BUN/Creatinine Ratio (10-20) Glucose (70-99) mg/dl Calcium (8.5-10.1) mg/dl Total Bilirubin (0.2-1) mg/dl AST (15-37) U/L ALT (12-78) U/L Alkaline Phosphatase (45-117) U/L Troponin I (0-0.045) ng/ml Total Protein (6.4-8.2) gm/dl Albumin (3.4-5.0) gm/dl Globulin (2.5-4.0) gm/dl Albumin/Globulin Ratio (0.9-2) TSH (0.300-4.500) uIu/ml Urine Color Yellow Urine Appearance Clear (Clear) Urine pH 6.0 (4.5-7.5) Ur Specific Zenda 1.013 (1.000-1.030) Urine Protein Negative (Negative) Urine Glucose (UA) Negative (Negative) Urine Ketones Negative (Negative) Urine Blood Negative (Negative) Urine Nitrite Negative (Negative) Urine Bilirubin Negative (Negative) Urine Urobilinogen Negative (Negative) Ur Leukocyte Esterase Negative (Negative) Salicylates (2.8-20) mg/dl Urine Opiates Screen Neg (Neg) Ur Methadone, Qual Neg (Neg) Acetaminophen (10-30) ug/ml Urine Barbiturates Neg (Neg) Ur Phencyclidine (PCP) Neg (Neg) U Amphetamin/Meth Scrn Neg (Neg) MDMA (Ecstasy) Screen Neg (Neg) U Benzodiazepines Scrn Neg (Neg) Ur Cocaine Metabolite Neg (Neg) U Marijuana (THC) Screen Neg (Neg) Ethyl Alcohol mg/dL (0-3) mg/dl 03/21/19 03/21/19 03/21/19 Range/Units 20:01 20:01 20:01 WBC (4.8-10.8) K/uL RBC (4.7-6.1) M/uL Hgb (14.0-18.0) g/dL Hct (42-52) % MCV (80-100) fL MCH (25-34) pg MCHC (32-36) g/dL RDW Std Deviation (36.4-46.3) fL RDW Coeff of Antonio (11.5-14.5) % Plt Count (130-400) K/uL MPV (7.4-10.4) fL Immature Gran % (Auto) % Neut % (Auto) % Lymph % (Auto) % Nicholas % (Auto) % Eos % (Auto) % Baso % (Auto) % Immature Gran # (Auto) (0.00-0.02) K/uL Neut # (Auto) (1.4-6.5) K/uL Lymph # (Auto) (1.2-3.4) K/uL Nicholas # (Auto) (0.11-0.59) K/uL Eos # (Auto) (0-0.5) K/uL Baso # (Auto) (0-0.2) K/uL Sodium 143 (136-145) mmol/L Potassium 3.3 L (3.5-5.1) mmol/L Chloride 109 H (98-107) mmol/L Carbon Dioxide 24 (21-32) mmol/L Anion Gap 11.0 (3-11) BUN 10 (7-18) mg/dl Creatinine 0.74 (0.6-1.4) mg/dl Est Cr Clr Drug Dosing 143.1 ml/min Est GFR ( Amer) 116.2 Est GFR (Non-Af Amer) 100.3 BUN/Creatinine Ratio 12.9 (10-20) Glucose 74 (70-99) mg/dl Calcium 8.5 (8.5-10.1) mg/dl Total Bilirubin 0.5 (0.2-1) mg/dl AST 55 H (15-37) U/L ALT 39 (12-78) U/L Alkaline Phosphatase 93 (45-117) U/L Troponin I < 0.015 (0-0.045) ng/ml Total Protein 7.7 (6.4-8.2) gm/dl Albumin 3.5 (3.4-5.0) gm/dl Globulin 4.2 H (2.5-4.0) gm/dl Albumin/Globulin Ratio 0.8 L (0.9-2) TSH 1.310 (0.300-4.500) uIu/ml Urine Color Urine Appearance (Clear) Urine pH (4.5-7.5) Ur Specific Zenda (1.000-1.030) Urine Protein (Negative) Urine Glucose (UA) (Negative) Urine Ketones (Negative) Urine Blood (Negative) Urine Nitrite (Negative) Urine Bilirubin (Negative) Urine Urobilinogen (Negative) Ur Leukocyte Esterase (Negative) Salicylates 5.0 (2.8-20) mg/dl Urine Opiates Screen (Neg) Ur Methadone, Qual (Neg) Acetaminophen < 2 L (10-30) ug/ml Urine Barbiturates (Neg) Ur Phencyclidine (PCP) (Neg) U Amphetamin/Meth Scrn (Neg) MDMA (Ecstasy) Screen (Neg) U Benzodiazepines Scrn (Neg) Ur Cocaine Metabolite (Neg) U Marijuana (THC) Screen (Neg) Ethyl Alcohol mg/dL 195.6 H (0-3) mg/dl Imaging Data Radiologist's Impression: Radiology results as stated below per my review and the radiologist's interpretation: XR chest 1V portable CLINICAL HISTORY: Atypical chest pain COMPARISON STUDY: 09/13/2018 FINDINGS: The cardiac and mediastinal contours are normal. There is no evidence of focal pulmonary consolidation. There is no evidence of failure. No pleural effusions are visualized.[ IMPRESSION: No active disease in the chest. Electronically signed by: Mateusz Suarez M.D. 03/21/2019 7:21 PM ECG Data Attestation: I personally reviewed and interpreted this ECG as follows: Indication: chest pain Rate (beats per minute): 69 Rhythm: normal sinus Findings: + other (normal axis ); no acute ischemic change Blood Pressure Blood Pressure Findings: Elevated blood pressure Blood Pressure Disposition: elevated BP felt to be situational MDM Narrative The patient is a 58 y/o gentleman with a pmhx of alcohol abuse, SDH, etoh withdrawal seizure, HLD, depression who presents to the emergency department with worsening depression and suicidal ideation with attempt to buy a gun yesterday per HPI. Patient presents to the [facility] today to admit himself but report chest and so was sent to ED for evaluation. Patient reports similar CP in the past related to anxiety. On arrival the patient is anxious appearing in NAD, AFVSS. On exam patient has reproducible left anterior CW ttp with reproduction of pain with shoulder abduction/external rotation. EKG without ev idence of acute ischemia. CXR negative. WBC 4.4 and platelets 106 similar to prior values an in setting of etoh abuse. H/H wnl. Chemistry without acidosis. K 3.3 with repletion provided. AST 55. Otherwise, LFTs and electrolytes unremarkable. Troponin negative. etoh 195. Drug screen otherwise negative. Patient was medically cleared. Given patient's active SI patient will require admission. Currently patient is willing for voluntary admission but if he were to change his mind he would meet criteria for 302. Patient was treated empirically for etoh withdrawal with dose of ativan, Banana bag, and placed on CIWA. No evidence of etoh withdrawal during ED observation. Patient admitted to [address] [place] [address] voluntarily on 201. Impression & Plan Suicidal ideations Discharge Plan Visit Data Chief Complaint: Mental Health Evaluation Stated Complaint: CHEST PAIN ED Provider: Mahesh Lyn Discharge Problem: Suicidal ideations Patient Disposition: Still a Patient Discharge Instructions Interventions: ED Discharge Assessment Last Done: 03/22/19 03:58 The scribe's documentation has been prepared under my direction and personally reviewed by me in its entirety. I confirm that the note above accurately refl ects all work, treatment, procedures, and medical decision making performed by me.
[2019-03-22] MEDS ORDERED: ACETAMINOPHEN 325 MG TAB PO PRN ×2 (02:51→12:10)
[2019-03-22] MEDS ORDERED: BISMUTH SUBSALICYLATE PER ML OMNICELL CHARGE PO PRN ×2 (02:51→12:10)
[2019-03-22] MEDS ORDERED: SODIUM CHLORIDE 0.65% NA SOLN 45 ML (OCEAN) PRN ×2 (02:51→12:10)
[2019-03-22] MEDS ORDERED: MAGNESIUM HYDROXIDE SUSP 30 ML UDC PO PRN ×2 (02:51→12:10)
[2019-03-22] MEDS ORDERED: ALUMINUM/MAGNESIUM SUSP 30 ML UDC PO PRN ×2 (02:51→12:10)
[2019-03-22] MEDS ORDERED: EPINEPHRINE ADULT AUTO-INJECT 0.3 MG SYR IM PRN (10:26)
[2019-03-22] MEDS ORDERED: CITALOPRAM 20 MG TAB PO SCH (10:30)
[2019-03-22] MEDS: levETIRAcetam 500 MG TAB PO SCH ×2 (11:41→20:41)
[2019-03-22] MEDS: ROSUVASTATIN CALCIUM 10 MG TAB PO SCH (11:41)
[2019-03-22] MEDS: PANTOprazole 40 MG TAB PO SCH (11:41)
[2019-03-22] MEDS ORDERED: CITALOPRAM 20 MG TAB PO STA (12:09)
[2019-03-22] MEDS ORDERED: LORazepam 1 MG TAB PO PRN (12:10)
[2019-03-22] MEDS ORDERED: GABAPENTIN 1200MG ALCOHOL WITHDRAWAL LOAD PO STA (12:10)
[2019-03-22] MEDS ORDERED: GABAPENTIN 600 MG TAB PO ONE (13:00)
--- NOTE | 2019-03-22 14:32 | History & Physical ---
Date of Service March 22, 2019 Impression / Recommendations Impression 58 yo male with a history of generalized anxiety and non-specific depressive symptoms and ETOH dependence who presents with SI, went in to gun store with intent to purchase to harm self. Reviewed that seizures/brain bleeds are neurologic injuries that also place at risk for mood change and impulsive behavior, particularly if combined with ENTERTAINMENT USHER depressants like ETOH. (1) Major depression, recurrent: 03/22 -The patient was admitted to the [facility] ([facility]) on q15 min checks (behavioral with suicide precautions) for safety. The patient will participate in group, recreational, and milieu therapies and will be offered additional individual and family sessions as clinically appropriate. With anxious distress. Reviewed dosing range of Celexa and FDA warnings re: QTc prolongation at 40 mg dosing. Patient agrees to a retrial of 30 mg Celexa. (2) EtOH dependence: 03/22 -The patient's AUDIT score suggests problematic drinking (Zone III WHO). Brief intervention was offered and accepted. Intervention was greater than 5 min in length and included assessing readiness to quit, advice on how to reduce or abstain from alcohol, and to set a specific goal for this hospitalization. cab worker will also assist in anticipating barriers to sobriety and in problem-solving for solutions to those problems while arranging for referral to appropriate treatment. The patient is in contemplation stage with regards to transtheoretical model of change. The patient is advised to eliminate alcohol consumption due to depressant effects and risk of interaction with prescription medications. The patient agreed to resume therapy and will be provided with recovery materials to continue to educate self on how to cope with their condition without drinking. He will be placed on AWSS protocol and loaded with Neurontin with prn Ativan available. 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 He has a history of depression and ETOH dependence, and was admitted on 03/22/19 02:51 on a 201 voluntary commitment for SI with act of furtherance. Chief Complaint "I'm pretty sure I don't have the guts to do that", referring to shooting himself. History of Present Illness Mr. Hgoan went to the [facility] with his believing he'd have a mental health assessment. He did not expect to be admitted, overall he described chest discomfort and given his medical history he was referred to the ED for clearance. He was then referred to our unit for admission after admitting he had gone to the gun shop a few days ago with the intent of purchasing a gun to shoot himself. His son secured the hunting rifles/has the hoyt but remained concerned when he sent good bye sounding texts the night before. 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 He does note that his adjustment to alf has been difficult. He didn't particularly want to retire but was offered a one time only early alf deal. The year after alf he had prostate CA, the following year a subdural, and the following year another brain bleed. He states that May 2018-Oct he participated in therapy and was able to stop his excessive ETOH use but recently started drinking more regularly again, mainly whiskey which he knows is dangerous given his fall and seizure hx. The health incident in August was particularly traumatic as he was hunting with some friends and had to be resuscitated for 4 minutes and was ultimately transferred. 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 He worries about his son who isn't sure where he want to attend grad school for biochem. He states that he hasn't felt as happy with his anxiety control in past year since benzodiazepine was discontinued but he understands why. He doesn't seem to recall if seizure hx related to other neuro issues vs withdrawal. Past Psychiatric History Previous Psych History: meds per PCP Current Psychiatric Diagnosis: JENNIFER Outpatient Services: can't recall previous therapist's name Previous Psych Admissions: none Do You Have Access To A Gun?: Yes (son reportedly locked) History of Previous Suicide Attempt: No Describe Attempts in the Past: None Past Medication Trials: Celexa and alprazolam. Celexa has been on board for several years and states that in past 30 mg was effective when more depressed then tapered again Past Head Trauma/Neuro History History of Concussion/Seizure: Yes Allergies Allergy/AdvReac Type Severity Reaction Status Date / Time bee venom protein (honey bee) Allergy Severe ANAPHYLAXIS Verified 09/13/18 22:23 cat dander Allergy Intermediate Itchy/Watery Verified 03/21/19 22:33 Eyes, Itchy throat tamsulosin Allergy Intermediate Hives Verified 09/13/18 22:23 Home Medications Home Medications Medication Instructions Recorded Confirmed Type citalopram 20 mg PO QAM 09/13/18 03/21/19 History rosuvastatin [Crestor] 10 mg PO DAILY 09/13/18 03/21/19 History epinephrine [EpiPen] 0.3 mg IM DIRECTED PRN 03/21/19 03/21/19 History levetiracetam 500 mg PO BID 03/21/19 03/21/19 History melatonin 3 mg PO HS 03/21/19 03/21/19 History pantoprazole 40 mg PO QAM 03/21/19 03/21/19 History ropinirole 0.5 mg PO QPM 03/21/19 03/21/19 History Family History Family History of: None Alcohol History Hx of Alcohol Use Over the Past 12 Months: Yes (2 large bottles of Jordanian Mist weekly, drinks daily) AUDIT Total Score: 19 2 of the 750 ml bottles of whiskey a week Smoking Use Have You Smoked or Used Tobacco Products in the Last 30 Days: Yes tobacco type: cigars Smoking Status: Current some day smoker Smoking packs per day: 0 Substance History Hx of Prescription Med Misuse Over the Past 12 Months: No Hx of Over the Counter Med Misuse Over the Past 12 Months: No Hx of Inhalent Misuse Over the Past 12 Months: No Hx of Organic Substance Use Over the Past 12 Months: No Hx of Illegal Substances/Street Drug Use Over Past 12 Months: No Problems as a Result of Past Substance Use: None Identified Problems as a Result of Past Substance Use Comments: D&A couseling and rehab Personal History Living Arrangements: Home Highest Grade Completed: College Employment Status: Retired Marital Status: Number Of Children: 2 Beliefs That Will Affect Care: None Current Legal Problems: No Hx Legal Problems: No Hx Traumatic Life Events: Yes (medical) Patient History Medical History Hypertension (Chronic) Hyperlipidemia (Chronic) Anxiety (Chronic) Diverticulosis (Chronic) Left arm weakness Prostate cancer (Resolved 07/30/16) "STAGING: Prostate, adenocarcinoma, triny 3 + 4, PSA 4.65, cT1c, group IIA Prostate gland size by TRUS - 25.1 TREATMENT: 1. Status post prostate seed implant as boost 11/06/2016 43 seeds were placed 8500 cGy 2. Status post completion of IMRT/IGRT completed 01/28/2017 received 4500 cGy" On 12/06/16 15:38 Tricia Solorio wrote "STAGING: Prostate, adenocarcinoma, triny 3 + 4, PSA 4.65, cT1c, group IIA Prostate gland size by TRUS - 25.1 TREATMENT: 1. Status post prostate seed implant as boost 11/06/2016 43 seeds were placed 8500 cGy" On 08/22/16 10:51 Cristofer Simba wrote "STAGING: Prostate, adenocarcinoma, triny 3 + 4, PSA 4.65, cT1c, group IIA Prostate gland size by TRUS - 25.1 " TIA (transient ischemic attack) Social History Preferred Language: Lithuanian Communication Ability: Effective Line Prep Cook Required: No Beliefs That Will Affect Care: None Feels Safe at Home: Yes Smoking Status: Current some day smoker Tobacco Type: cigars Review of Systems Review of Systems: All systems reviewed & are unremarkable except as noted in HPI & below Physical Exam Psychiatric: A physical exam was performed in the ER prior to admission to the unit by Dr. Lyn. I accept that physical as correct/medical clearance for the inpatient physical exam. Orientation: alert Apperance: appropriately dressed and appropriately groomed Eye Contact: + fair eye contact Motor Behavior: no abnormal motor movements Speech: normal rate/rhythm/volume of speech Affect: + depressed affect Mood: + depressed mood Thought Process: goal directed thought process Thought Content: reality based without delusions Suicidal Thoughts: denies suicidal thoughts and denies suicidal plan Homicidal Thoughts: denies homicidal thoughts Hallucinations: no auditory hallucinations and no visual hallucinations Cognition: recent memory grossly intact, remote memory grossly intact and language grossly intact Estimated Intelligence: consistent with education level Insight: + limited insight Judgement: + limited judgement Vital Signs (Past 24 Hours): Last Vital Signs Temp 36.7 C 03/22/19 12:58 Pulse 67 03/22/19 12:58 Resp 18 03/22/19 12:58 BP 167/103 H 03/22/19 12:58 Pulse Ox 91 03/22/19 04:40 Results & Data Laboratory Results Laboratory Results - last 24 hr 03/21/19 03/21/19 03/21/19 19:45 19:45 20:01 WBC 4.41 L RBC 4.82 Hgb 15.7 Hct 43.4 MCV 90.0 MCH 32.6 MCHC 36.2 H RDW Std Deviation 48.5 H RDW Coeff of Antonio 14.6 H Plt Count 106 L MPV 9.1 Immature Gran % (Auto) 0.5 Neut % (Auto) 56.0 Lymph % (Auto) 29.7 [place] % (Auto) 11.8 Eos % (Auto) 1.8 Baso % (Auto) 0.2 Immature Gran # (Auto) 0.02 Neut # (Auto) 2.47 Lymph # (Auto) 1.31 [place] # (Auto) 0.52 Eos # (Auto) 0.08 Baso # (Auto) 0.01 Sodium Potassium Chloride Carbon Dioxide Anion Gap BUN Creatinine Est Cr Clr Drug Dosing Est GFR ( Amer) Est GFR (Non-Af Amer) BUN/Creatinine Ratio Glucose Calcium Total Bilirubin AST ALT Alkaline Phosphatase Troponin I Total Protein Albumin Globulin Albumin/Globulin Ratio Folate TSH Urine Color Yellow Urine Appearance Clear Urine pH 6.0 Ur Specific Lanse 1.013 Urine Protein Negative Urine Glucose (UA) Negative Urine Ketones Negative Urine Blood Negative Urine Nitrite Negative Urine Bilirubin Negative Urine Urobilinogen Negative Ur Leukocyte Esterase Negative Salicylates Urine Opiates Screen Neg Ur Methadone, Qual Neg Acetaminophen Urine Barbiturates Neg Ur Phencyclidine (PCP) Neg U Amphetamin/Meth Scrn Neg MDMA (Ecstasy) Screen Neg U Benzodiazepines Scrn Neg Ur Cocaine Metabolite Neg U Marijuana (THC) Screen Neg Ethyl Alcohol mg/dL 03/21/19 03/21/19 03/21/19 20:01 20:01 20:01 WBC RBC Hgb Hct MCV MCH MCHC RDW Std Deviation RDW Coeff of Antonio Plt Count MPV Immature Gran % (Auto) Neut % (Auto) Lymph % (Auto) [place] % (Auto) Eos % (Auto) Baso % (Auto) Immature Gran # (Auto) Neut # (Auto) Lymph # (Auto) [place] # (Auto) Eos # (Auto) Baso # (Auto) Sodium 143 Potassium 3.3 L Chloride 109 H Carbon Dioxide 24 Anion Gap 11.0 BUN 10 Creatinine 0.74 Est Cr Clr Drug Dosing 143.1 Est GFR ( Amer) 116.2 Est GFR (Non-Af Amer) 100.3 BUN/Creatinine Ratio 12.9 Glucose 74 Calcium 8.5 Total Bilirubin 0.5 AST 55 H ALT 39 Alkaline Phosphatase 93 Troponin I < 0.015 Total Protein 7.7 Albumin 3.5 Globulin 4.2 H Albumin/Globulin Ratio 0.8 L Folate TSH 1.310 Urine Color Urine Appearance Urine pH Ur Specific [place]se Urine Protein Urine Glucose (UA) Urine Ketones Urine Blood Urine Nitrite Urine Bilirubin Urine Urobilinogen Ur Leukocyte Esterase Salicylates 5.0 Urine Opiates Screen Ur Methadone, Qual Acetaminophen < 2 L Urine Barbiturates Ur Phencyclidine (PCP) U Amphetamin/Meth Scrn MDMA (Ecstasy) Screen U Benzodiazepines Scrn Ur Cocaine Metabolite U Marijuana (THC) Screen Ethyl Alcohol mg/dL 195.6 H 03/22/19 13:54 WBC RBC Hgb Hct MCV MCH MCHC RDW Std Deviation RDW Coeff of Antonio Plt Count MPV Immature Gran % (Auto) Neut % (Auto) Lymph % (Auto) [place] % (Auto) Eos % (Auto) Baso % (Auto) Immature Gran # (Auto) Neut # (Auto) Lymph # (Auto) [place] # (Auto) Eos # (Auto) Baso # (Auto) Sodium Potassium Chloride Carbon Dioxide Anion Gap BUN Creatinine Est Cr Clr Drug Dosing Est GFR ( Amer) Est GFR (Non-Af Amer) BUN/Creatinine Ratio Glucose Calcium Total Bilirubin AST ALT Alkaline Phosphatase Troponin I Total Protein Albumin Globulin Albumin/Globulin Ratio Folate Pending TSH Urine Color Urine Appearance Urine pH Ur Specific Lanse Urine Protein Urine Glucose (UA) Urine Ketones Urine Blood Urine Nitrite Urine Bilirubin Urine Urobilinogen Ur Leukocyte Esterase Salicylates Urine Opiates Screen Ur Methadone, Qual Acetaminophen Urine Barbiturates Ur Phencyclidine (PCP) U Amphetamin/Meth Scrn MDMA (Ecstasy) Screen U Benzodiazepines Scrn Ur Cocaine Metabolite U Marijuana (THC) Screen Ethyl Alcohol mg/dL Current Inpatient Medications Current Inpatient Medications: Current Inpatient Medications Acetaminophen (Tylenol) 650 mg PO Q4H PRN PRN Reason: Headache or Minor Fever Stop: 04/21/19 02:50 Al Hydrox/Mg Hydrox/Simethicone (Maalox) 30 ml PO Q4H PRN PRN Reason: GI Upset Stop: 04/21/19 02:50 Bismuth Subsalicylate (Kaopectate) 15 ml PO PRN PRN PRN Reason: Loose Stool Stop: 04/21/19 02:50 Citalopram Hydrobromide (Celexa) 30 mg PO QAM [facility] Stop: 04/22/19 08:59 Epinephrine HCl (Epipen) 0.3 mg IM UD PRN PRN Reason: Allergic Reaction Stop: 04/21/19 10:25 Gabapentin (Neurontin) 600 mg PO Q12H [facility] Stop: 03/25/19 06:01 Gabapentin (Neurontin) 600 mg PO Q24H [facility] Stop: 04/25/19 05:59 Gabapentin (Neurontin) 600 mg PO Q8H [facility] Stop: 03/24/19 06:01 Gabapentin (Neurontin) 600 mg PO 06,1999 [facility] Stop: 03/23/19 06:01 Hydroxyzine HCl (Vistaril) 50 mg PO HSZ PRN PRN Reason: Insomnia Stop: 04/21/19 02:50 Hydroxyzine HCl (Vistaril) 25 mg PO Q4H PRN PRN Reason: Anxiety Stop: 04/21/19 02:50 Last Admin: 03/22/19 04:17 Dose: 25 mg Documented by: Levetiracetam (Keppra) 500 mg PO BID [facility] Stop: 04/21/19 10:29 Last Admin: 03/22/19 11:41 Dose: 500 mg Documented by: Lorazepam (Ativan) 1 mg PO ONE PRN; Protocol PRN Reason: EtoH Withdrawal AWSS 6-10 Magnesium Hydroxide (Milk Of Magnesia) 30 ml PO DAILY PRN PRN Reason: Heartburn Stop: 04/21/19 02:50 Pantoprazole Sodium (Protonix) 40 mg PO QAM [facility] Stop: 04/21/19 10:29 Last Admin: 03/22/19 11:41 Dose: 40 mg Documented by: Ropinirole HCl (Requip) 0.5 mg PO DAILY@1900 [facility] Stop: 04/21/19 18:59 Rosuvastatin Calcium (Crestor) 10 mg PO DAILY [facility] Stop: 04/21/19 10:29 Last Admin: 03/22/19 11:41 Dose: 10 mg Documented by: Sodium Chloride ([place] Nasal) 1 - 2 sprays NA PRN PRN PRN Reason: Nasal Dryness/Congestion Stop: 04/21/19 02:50 CPT Code CPT Code Initial Hospital Care: [id number]
[2019-03-22 16:07] VITALS: O2SAT 95
[2019-03-22] MEDS ORDERED: ROPINIROLE HCL 0.25 MG TABLET PO SCH (19:00)
[2019-03-22] MEDS: GABAPENTIN 600 MG TAB PO SCH (20:40)
[2019-03-23] MEDS: GABAPENTIN 600 MG TAB PO SCH (06:02)
[2019-03-23] MEDS: ROSUVASTATIN CALCIUM 10 MG TAB PO SCH (08:51)
[2019-03-23] MEDS: levETIRAcetam 500 MG TAB PO SCH (08:51)
[2019-03-23] MEDS: PANTOprazole 40 MG TAB PO SCH (08:51)
[2019-03-23] MEDS ORDERED: CITALOPRAM 20 MG TAB PO SCH (09:00)
[2019-03-23] MEDS ORDERED: GABAPENTIN 600 MG TAB PO SCH (14:00)
--- NOTE | 2019-03-23 15:34 | Psychiatric Progress Note ---
Date of Service March 23, 2019 Impression / Recommendations Impression Patient is reporting significant improvement in mood since yesterday. Anxiety is reportedly better managed, and he denies any suicidal thoughts at this time. He was agreeable to meeting with his which will be held tomorrow morning. We will plan to continue citalopram at 30 mg daily, as patient does not feel that further titration is necessary at this time. Given patient's alcohol dependence, family's concerns, and suicidal thoughts with act of furtherance prior to admission - he remains at high risk of harm to self if discharged prematurely. Despite reported improvements in mood, it is recommended that the patient remain in the inpatient psychiatric setting to ensure consistency and stability of mood and prevent decompensation at discharge. (1) Major depression, recurrent: 03/22 -The patient was admitted to the [facility] ([facility] mental health unit) on q15 min checks (behavioral with suicide precautions) for safety. The patient will participate in group, recreational, and milieu therapies and will be offered additional individual and family sessions as clinically appropriate. With anxious distress. Reviewed dosing range of Celexa and FDA warnings re: QTc prolongation at 40 mg dosing. Patient agrees to a retrial of 30 mg Celexa. 03/23 - Continue citalopram at 30mg daily, patient declining offer for further titration (2) EtOH dependence: 03/22 -The patient's AUDIT score suggests problematic drinking (Zone III WHO). Brief intervention was offered and accepted. Intervention was greater than 5 min in length and included assessing readiness to quit, advice on how to reduce or abstain from alcohol, and to set a specific goal for this hospitalization. youth accommodation support worker will also assist in anticipating barriers to sobriety and in problem-solving for solutions to those problems while arranging for referral to appropriate treatment. The patient is in contemplation stage with regards to transtheoretical model of change. The patient is advised to eliminate alcohol consumption due to depressant effects and risk of interaction with prescription medications. The patient agreed to resume therapy and will be provided with recovery materials to continue to educate self on how to cope with their condition without drinking. He will be placed on AWSS protocol and loaded with Neurontin with prn Ativan available. 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 He has a history of depression and ETOH dependence, and was admitted on 03/22/19 02:51 on a 201 voluntary commitment for SI with act of furtherance. Chief Complaint "Great, I got the best sleep last night that I had in a while." Review of Systems Notes Constitutional: denied Cardiovascular: denied Respiratory: denied Gastrointestinal: denied Neurological: denied Psychiatric: denies symptoms other than stated above Total of at least 10 systems reviewed, pertinent positives as above and in HPI. Sleep Information Total Hours of Sleep: 6.75 Sleep Comments: staff woke patient at 0600 for scheduled medication. Meal Information Percent Meal Consumed - Breakfast: 100 Percent Meal Consumed - Lunch: 100 Percent Meal Consumed - Dinner: 100 Subjective Subjective Patient was seen & assessed and interval progress reviewed with Treatment Team. Staff reports the patient is agreeable to a family meeting with his which was scheduled for 9:00 on 03/24/2019. Patient has continued on AWSS protocol with gabapentin taper. Patient was seen today to assess progress since admission. He states that he is feeling "so much better, loads better." He reports that this feeling began when he woke up this morning, and is now feeling very regretful for having the thoughts to end his life. Patient shares with this provider that he is agreeable to resuming drug and alcohol counseling in order to regain control of his alcohol dependence and work towards sobriety. Patient is tolerating titration of citalopram to 30 mg daily, and states that his anxiety is "much more under control." Patient is feeling meeting with his will be beneficial, and is looking forward to coordinating aftercare. He does report some concern for a meeting tomorrow as "more like the odd couple, I am very artistic and emotional and she is more scientific and analytical." Patient denies any suicidal thoughts today, as well as other needs or concerns at this time. Physical Exam Psychiatric Orientation: alert, oriented x 3 and cooperative (And pleasant) Apperance: appropriately dressed and appropriately groomed Eye Contact: good eye contact Motor Behavior: steady gait and station and no abnormal motor movements Speech: normal rate/rhythm/volume of speech Affect: euthymic affect Mood: no depressed mood and no anxious mood "I am good, really good actually" Thought Process: goal directed thought process, linear/logical thought process and clear/coherent thought process Thought Content: reality based without delusions Suicidal Thoughts: denies suicidal thoughts (Reporting remorse for thoughts to end life prior to admission) Homicidal Thoughts: denies homicidal thoughts Hallucinations: no auditory hallucinations and no visual hallucinations Cognition: remote memory grossly intact, attention grossly intact and language grossly intact Estimated Intelligence: consistent with education level Insight: + fair insight Judgement: + fair judgement Vital Signs (Past 24 Hours) Last Vital Signs Temp 36.5 C 03/23/19 14:46 Pulse 77 03/23/19 14:46 Resp 16 03/23/19 14:46 BP 134/93 03/23/19 14:46 Pulse Ox 95 03/22/19 16:04 Results & Data Current Inpatient Medications Current Inpatient Medications: Current Inpatient Medications Acetaminophen (Tylenol) 650 mg PO Q4H PRN PRN Reason: Headache or Minor Fever Stop: 04/21/19 02:50 Al Hydrox/Mg Hydrox/Simethicone (Maalox) 30 ml PO Q4H PRN PRN Reason: GI Upset Stop: 04/21/19 02:50 Bismuth Subsalicylate (Kaopectate) 15 ml PO PRN PRN PRN Reason: Loose Stool Stop: 04/21/19 02:50 Citalopram Hydrobromide (Celexa) 30 mg PO QAM [facility] Stop: 04/22/19 08:59 Last Admin: 03/23/19 08:51 Dose: 30 mg Documented by: Epinephrine HCl (Epipen) 0.3 mg IM UD PRN PRN Reason: Allergic Reaction Stop: 04/21/19 10:25 Gabapentin (Neurontin) 600 mg PO Q12H [facility] Stop: 03/25/19 06:01 Gabapentin (Neurontin) 600 mg PO Q24H [facility] Stop: 04/25/19 05:59 Gabapentin (Neurontin) 600 mg PO Q8H [facility] Stop: 03/24/19 06:01 Last Admin: 03/23/19 14:35 Dose: 600 mg Documented by: Hydroxyzine HCl (Vistaril) 50 mg PO HSZ PRN PRN Reason: Insomnia Stop: 04/21/19 02:50 Hydroxyzine HCl (Vistaril) 25 mg PO Q4H PRN PRN Reason: Anxiety Stop: 04/21/19 02:50 Last Admin: 03/22/19 04:17 Dose: 25 mg Documented by: Levetiracetam (Keppra) 500 mg PO BID [facility] Stop: 04/21/19 10:29 Last Admin: 03/23/19 08:51 Dose: 500 mg Documented by: Lorazepam (Ativan) 1 mg PO ONE PRN; Protocol PRN Reason: EtoH Withdrawal AWSS 6-10 Magnesium Hydroxide (Milk Of Magnesia) 30 ml PO DAILY PRN PRN Reason: Heartburn Stop: 04/21/19 02:50 Pantoprazole Sodium (Protonix) 40 mg PO QAM [facility] Stop: 04/21/19 10:29 Last Admin: 03/23/19 08:51 Dose: 40 mg Documented by: Ropinirole HCl (Requip) 0.5 mg PO DAILY@1900 [facility] Stop: 04/21/19 18:59 Last Admin: 03/22/19 18:51 Dose: 0.5 mg Documented by: Rosuvastatin Calcium (Crestor) 10 mg PO DAILY [facility] Stop: 04/21/19 10:29 Last Admin: 03/23/19 08:51 Dose: 10 mg Documented by: Sodium Chloride ([place] Nasal) 1 - 2 sprays NA PRN PRN PRN Reason: Nasal Dryness/Congestion Stop: 04/21/19 02:50 Post Discharge Appointments Primary Care Physician Name Of Family Doctor: Dr. Riojas Therapist Name of Therapist: None Journeyman Press Operator Name of Journeyman Press Operator: None Neurologist Name of Neurologist: Dr. Hooks Neurologist's Contact Information Discharge Discharge Address: [address] [place] [address] CPT Code CPT Code 50210
[2019-03-23 18:15] VITALS: TEMP 97.5
[2019-03-23 18:53] VITALS: BP 181/97; PULSE 70
--- NOTE | 2019-03-23 18:59 | Discharge Summary ---
Date of Service March 23, 2019 History of Present Illness Mr. Hammonds went to the [facility] with his believing he'd have a mental health assessment. He did not expect to be admitted, overall he described chest discomfort and given his medical history he was referred to the ED for clearance. He was then referred to our unit for admission after admitting he had gone to the gun shop a few days ago with the intent of purchasing a gun to shoot himself. His son secured the hunting rifles/has the hoyt but remained concerned when he sent good bye sounding texts the night before. 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 He does note that his adjustment to prison has been difficult. He didn't particularly want to retire but was offered a one time only early re tirement deal. The year after prison he had prostate CA, the following year a subdural, and the following year another brain bleed. He states that May 2018-Oct he participated in therapy and was able to stop his excessive ETOH use but recently started drinking more regularly again, mainly whiskey which he knows is dangerous given his fall and seizure hx. The health incident in August was particularly traumatic as he was hunting with some friends and had to be resuscitated for 4 minutes and was ultimately transferred. 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 He worries about his son who isn't sure where he want to attend grad school for [employer]. He states that he hasn't felt as happy with his anxiety control in past year since benzodiazepine was discontinued but he understands why. He doesn't seem to recall if seizure hx related to other neuro issues vs withdrawal. Physical Exam Vital Signs (Past 24 Hours) Last Vital Signs Temp 36.4 C L 03/23/19 18:45 Pulse 70 03/23/19 18:45 Resp 18 03/23/19 18:45 BP 181/97 H 03/23/19 18:45 Pulse Ox 95 03/23/19 18:45 Principal Diagnosis major depressive disorder, recurrent Psychiatric Data see below Day of Discharge Assessment patient was admitted from ED following medical clearance early on 03/22. He was loaded on Neurontin according to hospital protocol and Celexa was increased to a retrial of 30 mg. This pm he developed numbness and tingling in his arm, staff called jus cory, given his complex medical history hospitalist service desires transfer to [facility] floor for additional work-up and monitoring. 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) Stable Relationships: Yes Supportive Family: Yes Tobacco Cessation at Discharge Tobacco Cessation Medication Prescribed at Discharge: Not Applicable/Non-Smoker Total Time Total Time Spent: Less Than 30 Minutes Discharge Data Lab Results 03/21/19 03/21/19 03/21/19 19:45 19:45 20:01 WBC 4.41 L RBC 4.82 Hgb 15.7 Hct 43.4 MCV 90.0 MCH 32.6 MCHC 36.2 H RDW Std Deviation 48.5 H RDW Coeff of Antonio 14.6 H Plt Count 106 L MPV 9.1 Immature Gran % (Auto) 0.5 Neut % (Auto) 56.0 Lymph % (Auto) 29.7 [place] % (Auto) 11.8 Eos % (Auto) 1.8 Baso % (Auto) 0.2 Immature Gran # (Auto) 0.02 Neut # (Auto) 2.47 Lymph # (Auto) 1.31 [place] # (Auto) 0.52 Eos # (Auto) 0.08 Baso # (Auto) 0.01 Sodium Potassium Chloride Carbon Dioxide Anion Gap BUN Creatinine Est Cr Clr Drug Dosing Est GFR ( Amer) Est GFR (Non-Af Amer) BUN/Creatinine Ratio Glucose POC Glucose Calcium Total Bilirubin AST ALT Alkaline Phosphatase Troponin I Total Protein Albumin Globulin Albumin/Globulin Ratio Folate TSH Urine Color Yellow Urine Appearance Clear Urine pH 6.0 Ur Specific [place] 1.013 Urine Protein Negative Urine Glucose (UA) Negative Urine Ketones Negative Urine Blood Negative Urine Nitrite Negative Urine Bilirubin Negative Urine Urobilinogen Negative Ur Leukocyte Esterase Negative Salicylates Urine Opiates Screen Neg Ur Methadone, Qual Neg Acetaminophen Urine Barbiturates Neg Ur Phencyclidine (PCP) Neg U Amphetamin/Meth Scrn Neg MDMA (Ecstasy) Screen Neg U Benzodiazepines Scrn Neg Ur Cocaine Metabolite Neg U Marijuana (THC) Screen Neg Ethyl Alcohol mg/dL 03/21/19 03/21/19 03/21/19 20:01 20:01 20:01 WBC RBC Hgb Hct MCV MCH MCHC RDW Std Deviation RDW Coeff of Antonio Plt Count MPV Immature Gran % (Auto) Neut % (Auto) Lymph % (Auto) [place] % (Auto) Eos % (Auto) Baso % (Auto) Immature Gran # (Auto) Neut # (Auto) Lymph # (Auto) [place] # (Auto) Eos # (Auto) Baso # (Auto) Sodium 143 Potassium 3.3 L Chloride 109 H Carbon Dioxide 24 Anion Gap 11.0 BUN 10 Creatinine 0.74 Est Cr Clr Drug Dosing 143.1 Est GFR ( Amer) 116.2 Est GFR (Non-Af Amer) 100.3 BUN/Creatinine Ratio 12.9 Glucose 74 POC Glucose Calcium 8.5 Total Bilirubin 0.5 AST 55 H ALT 39 Alkaline Phosphatase 93 Troponin I < 0.015 Total Protein 7.7 Albumin 3.5 Globulin 4.2 H Albumin/Globulin Ratio 0.8 L Folate TSH 1.310 Urine Color Urine Appearance Urine pH Ur Specific [place] Urine Protein Urine Glucose (UA) Urine Ketones Urine Blood Urine Nitrite Urine Bilirubin Urine Urobilinogen Ur Leukocyte Esterase Salicylates 5.0 Urine Opiates Screen Ur Methadone, Qual Acetaminophen < 2 L Urine Barbiturates Ur Phencyclidine (PCP) U Amphetamin/Meth Scrn MDMA (Ecstasy) Screen U Benzodiazepines Scrn Ur Cocaine Metabolite U Marijuana (THC) Screen Ethyl Alcohol mg/dL 195.6 H 03/22/19 03/23/19 13:54 18:30 WBC RBC Hgb Hct MCV MCH MCHC RDW Std Deviation RDW Coeff of Antonio Plt Count MPV Immature Gran % (Auto) Neut % (Auto) Lymph % (Auto) [place] % (Auto) Eos % (Auto) Baso % (Auto) Immature Gran # (Auto) Neut # (Auto) Lymph # (Auto) [place] # (Auto) Eos # (Auto) Baso # (Auto) Sodium Potassium Chloride Carbon Dioxide Anion Gap BUN Creatinine Est Cr Clr Drug Dosing Est GFR ( Amer) Est GFR (Non-Af Amer) BUN/Creatinine Ratio Glucose POC Glucose 166 H Calcium Total Bilirubin AST ALT Alkaline Phosphatase Troponin I Total Protein Albumin Globulin Albumin/Globulin Ratio Folate 12.08 TSH Urine Color Urine Appearance Urine pH Ur Specific [place] Urine Protein Urine Glucose (UA) Urine Ketones Urine Blood Urine Nitrite Urine Bilirubin Urine Urobilinogen Ur Leukocyte Esterase Salicylates Urine Opiates Screen Ur Methadone, Qual Acetaminophen Urine Barbiturates Ur Phencyclidine (PCP) U Amphetamin/Meth Scrn MDMA (Ecstasy) Screen U Benzodiazepines Scrn Ur Cocaine Metabolite U Marijuana (THC) Screen Ethyl Alcohol mg/dL Hospital Course (1) Major depression, recurrent: 03/22 -The patient was admitted to the [facility] ([facility] mental health unit) on q15 min checks (behavioral with suicide precautions) for safety. The patient will participate in group, recreational, and milieu therapies and will be offered additional individual and family sessions as clinically appropriate. With anxious distress. Reviewed dosing range of Celexa and FDA warnings re: QTc prolongation at 40 mg dosing. Patient agrees to a retrial of 30 mg Celexa. 03/23 - Continue citalopram at 30mg daily, patient declining offer for further titration (2) EtOH dependence: 03/22 -The patient's AUDIT score suggests problematic drinking (Zone III WHO). Brief intervention was offered and accepted. Intervention was greater than 5 min in length and included assessing readiness to quit, advice on how to reduce or abstain from alcohol, and to set a specific goal for this hospitalization. 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 The patient is in contemplation stage with regards to transtheoretical model of change. The patient is advised to eliminate alcohol consumption due to depressant effects and risk of interaction with prescription medications. The patient agreed to resume therapy and will be provided with recovery materials to continue to educate self on how to cope with their condition without drinking. He will be placed on AWSS protocol and loaded with Neurontin with prn Ativan available. / - Pt stating he would be agreeable to outpatient D&A counseling Post Discharge Appointments Primary Care Physician Name Of Family Doctor: Dr. Riojas Therapist Name of Therapist: None Household Appliance Repairer Name of Household Appliance Repairer: None Neurologist Name of Neurologist: Dr. Hooks Neurologist's Smoking Cessation Counseling Tobacco Cessation Medication Prescribed at Discharge: Not Applicable/Non-Smoker Contact Information Discharge Discharge Address: [address] [place] [address] Discharge Plan Discharge Items Patient Disposition: Transfer Acute Care Hospital Reason For Visit: DEPRESSION Discharge Diagnosis: same Discharge Goals: Improve disease control and Improve function Activity: As commented below Activity Comment: per medical Non-emergency contact: Hospitalist Call non-emergency contact if: you have any medication questions and your symptoms worsen Follow-up/Referrals: Matheus Riojas [Primary Care Provider] - Diet: See below Diet Comment: per medical Addtl Provider Instructions: you are being transferred to medical service, please ask for the liaison nurse if you have questions about your psychiatric aftercare plan. Prescriptions: New gabapentin 600 mg Tablet 600 mg PO Q24H Qty: 1 RF: 0 gabapentin 600 mg Tablet 600 mg PO Q8H Qty: 1 RF: 0 gabapentin 600 mg Tablet 600 mg PO Q12H Qty: 1 RF: 0 citalopram 20 mg Tablet 30 mg PO QAM Qty: 1 RF: 0 ropinirole 0.25 mg Tablet 0.5 mg PO DAILY@1900 Qty: 1 RF: 0 Continued levetiracetam 500 mg Tablet 500 mg PO BID RF: 0 pantoprazole 40 mg Tablet,Delayed Release (Dr/Ec) 40 mg PO QAM RF: 0 epinephrine [EpiPen] 0.3 mg/0.3 mL Auto-Injector 0.3 mg IM DIRECTED PRN (Reason: Allergic Reaction) RF: 0 rosuvastatin [Crestor] 10 mg Tablet 10 mg PO DAILY RF: 0 Discontinued melatonin 3 mg Tablet 3 mg PO HS RF: 0 ropinirole 0.25 mg Tablet 0.5 mg PO QPM RF: 0 citalopram 20 mg Tablet 20 mg PO QAM RF: 0 Stand-Alone Forms: [facility] Discharge Orders: Discharge Order (Routine); Ordered 03/23/19 Ordered By: Annelise Orta Admission Data Admit Date/Time: 03/22/19 02:51 Attending Provider: Daysi Douglass Admit Provider: Annelise Orta Primary Care Provider: Matheus Riojas Service: Psychiatry Other Interventions: Discharge Summary Assessment (RN) Last Done: 03/23/19 18:45 PSY Interdisciplinary Discharge Planning Last Done: 03/22/19 10:56 Pending Studies at Discharge: No
[2019-03-23 19:05] LABS: Hemoglobin 14.7 g/dL (14.0-18.0); Mean Corpuscular Volume 89.1 fL (80-100); RDW Coefficient of Variation 14.2 % (11.5-14.5); RDW Standard Deviation 46.4 fL (36.4-46.3); White Blood Count 4.34 K/uL (4.8-10.8)
[2019-03-23 19:34] LABS: Magnesium 1.7 mg/dl (1.8-2.4); Mean Corpuscular Hgb Conc 35.9 g/dL (32-36); Mean Platelet Volume 9.6 fL (7.4-10.4); Platelet Count 98 K/uL (130-400); Troponin I < 0.015 ng/ml (0-0.045)
[2019-03-23 19:36] LABS: Platelet Estimate Decreased (Normal)
[2019-03-23 19:47] LABS: Partial Thromboplastin Time 26.2 Seconds (21.0-31.0); Prothrombin Time 10.6 Seconds (9.0-12.0)
[2019-03-23 19:48] LABS: Potassium 3.7 mmol/L (3.5-5.1)
[2019-03-23 19:49] LABS: Bilirubin,Total 0.5 mg/dl (0.2-1); Calcium 9.1 mg/dl (8.5-10.1); Creatinine Clr Calc Pharmacy 108.3 ml/min; Est GFR (African American) 99.2; Est GFR (Non-African American) 85.6
[2019-03-23 19:50] LABS: Albumin Globulin Ratio 0.9 (0.9-2); Albumin Level 3.5 gm/dl (3.4-5.0); Globulin 4.1 gm/dl (2.5-4.0); Total Protein 7.6 gm/dl (6.4-8.2)
[2019-03-23 19:52] LABS: BUN Creatinine Ratio 9.6 (10-20)
[2019-03-24] MEDS ORDERED: GABAPENTIN 600 MG TAB PO SCH (18:00)
[2019-03-26] MEDS ORDERED: GABAPENTIN 600 MG TAB PO SCH (06:00)
== END 2019-03-23 19:00 | disposition short-term general hospital (02) | DRG 885 ==
LOC: ED 18:48 → 3S 03-22 02:51 → SUATTDRO 03-22 02:51 → 3S 03-22 03:58

== ENCOUNTER 2019-03-23 18:47 | Inpatient (IN) ==
[2019-03-23] MEDS ORDERED: OPTIRAY 320 125ml IV PRN (19:20)
--- NOTE | 2019-03-23 19:27 | CT Scan Report ---
CT SCAN OF THE BRAIN WITHOUT IV CONTRAST CLINICAL HISTORY: Strokelike symptoms. COMPARISON STUDY: CT of the brain dated 09/13/2018. TECHNIQUE: Unenhanced axial CT scan of the brain is performed from the vertex to the skull base. A d ose lowering technique was utilized adhering to the principles of ALARA. CT DOSE: 1256.03 mGy.cm FINDINGS: Brain parenchyma: There is mild subcortical and periventricular microangiopathic disease. There is no hemorrhage, mass effect, or evidence of acute territorial ischemia by CT criteria. Naylor-white matter differentiation is preserved. No extra-axial fluid collection is seen. Ventricles, sulci, cisterns: Normal in configuration. Intracranial vasculature: There is atherosclerotic calcification of the cavernous carotid and vertebr al arteries. Calvarium: Unremarkable. Sinuses and mastoids: The visualized paranasal sinuses are clear. There is a small left mastoid effus ion. The right mastoid air cells are well pneumatized. Orbits: The bony orbits are grossly intact. IMPRESSION: There is no hemorrhage, mass effect, or evidence of acute territorial ischemia by CT vijay mayorga. Electronically signed by: Richar Minor M.D. 03/23/2019 7:25 PM
--- NOTE | 2019-03-23 19:41 | CT Scan Report ---
HEAD & NECK CTA HISTORY: Left-sided weakness stroke sx TECHNIQUE: Multiaxial CT images of the head were performed both before and after the the intravenous administration of contrast to evaluate the major cerebral vessels. Multiaxial CT images of the neck w ere also performed following the intravenous administration of contrast to evaluate the major cervica l vessels. Maximum intensity projection images were also obtained. A dose lowering technique was util ized adhering to the principles of ALARA. COMPARISON: Head CT 03/23/2019. Brain MRI 08/07/2017. Carotid Doppler study 08/07/2017. FINDINGS: There is no mass, hematoma, midline shift, or acute infarct. Mild diffuse narrowing within the bilate ral carotid siphons due to the diffuse atherosclerotic plaque. The basilar artery is widely patent. T he major dural venous sinuses are patent. The bilateral ACAs, MCAs, ui designer show no significant stenosis , occlusion, aneurysm. The aortic arch and proximal great vessels are widely patent. Moderate calcified plaque at the orig in of the right vertebral artery without significant stenosis. The left vertebral artery is slightly hypoplastic. No significant stenosis within the cervical portions of the bilateral vertebral arteries . Moderate focal stenosis of approximately 50% within the intradural segment of the left distal verte bral artery. The distal right vertebral artery is widely patent. Moderate calcified plaque within the bilateral proximal internal carotid arteries. This results in approximately 50% focal stenosis withi n the proximal right internal carotid artery and 60-70% focal stenosis at the proximal left internal carotid artery. The bilateral common carotid arteries are widely patent. The mid to distal bilateral internal carotid arteries are also patent. IMPRESSION: 1. No occlusion or aneurysm within the [place] of Bhatt. Mild diffuse narrowing within the bilateral carotid siphons due to the diffuse atherosclerotic plaque. 2. Approximately 50% focal stenosis within the proximal right internal carotid artery and 60-70% sten osis within the proximal left internal carotid artery due to the atherosclerotic plaque. 3. Moderate focal stenosis of approximately 50% within the distal left vertebral artery. Electronically signed by: Luciano Chaney M.D. 03/23/2019 7:40 PM
--- NOTE | 2019-03-23 19:41 | CT Scan Report ---
HEAD & NECK CTA HISTORY: Left-sided weakness stroke sx TECHNIQUE: Multiaxial CT images of the head were performed both before and after the the intravenous administration of contrast to evaluate the major cerebral vessels. Multiaxial CT images of the neck w ere also performed following the intravenous administration of contrast to evaluate the major cervica l vessels. Maximum intensity projection images were also obtained. A dose lowering technique was util ized adhering to the principles of ALARA. COMPARISON: Head CT 03/23/2019. Brain MRI 08/07/2017. Carotid Doppler study 08/07/2017. FINDINGS: There is no mass, hematoma, midline shift, or acute infarct. Mild diffuse narrowing within the bilate ral carotid siphons due to the diffuse atherosclerotic plaque. The basilar artery is widely patent. T he major dural venous sinuses are patent. The bilateral ACAs, MCAs, yarn man show no significant stenosis , occlusion, aneurysm. The aortic arch and proximal great vessels are widely patent. Moderate calcified plaque at the orig in of the right vertebral artery without significant stenosis. The left vertebral artery is slightly hypoplastic. No significant stenosis within the cervical portions of the bilateral vertebral arteries . Moderate focal stenosis of approximately 50% within the intradural segment of the left distal verte bral artery. The distal right vertebral artery is widely patent. Moderate calcified plaque within the bilateral proximal internal carotid arteries. This results in approximately 50% focal stenosis withi n the proximal right internal carotid artery and 60-70% focal stenosis at the proximal left internal carotid artery. The bilateral common carotid arteries are widely patent. The mid to distal bilateral internal carotid arteries are also patent. IMPRESSION: 1. No occlusion or aneurysm within the [place] of Bhatt. Mild diffuse narrowing within the bilateral carotid siphons due to the diffuse atherosclerotic plaque. 2. Approximately 50% focal stenosis within the proximal right internal carotid artery and 60-70% sten osis within the proximal left internal carotid artery due to the atherosclerotic plaque. 3. Moderate focal stenosis of approximately 50% within the distal left vertebral artery. Electronically signed by: Luciano Chaney M.D. 03/23/2019 7:40 PM
--- NOTE | 2019-03-23 19:43 | XRay Report ---
SINGLE VIEW CHEST CLINICAL HISTORY: Strokelike symptoms. FINDINGS: An AP, portable, upright chest radiograph is compared to study dated 03/21/2019. The examinat ion is degraded by portable technique and apical lordotic positioning. The heart is mildly enlarged there is atherosclerotic calcification of the thoracic aorta. The pulmonary vasculature is noncongest ed. Chronic interstitial thickening is similar to previous. There is mild bibasilar scarring/atelecta sis. No airspace consolidation or large pleural effusion is identified. No pneumothorax is seen. The bony thorax is grossly intact. IMPRESSION: Mild cardiac enlargement with no acute cardiopulmonary abnormality. Electronically signed by: Richar Minor M.D. 03/23/2019 7:42 PM
[2019-03-23] MEDS ORDERED: MULTI-VITAMIN INFUSION 10 ML, THIAMINE HCL 100 MG, FOLIC ACID 1 MG in SODIUM CHLORIDE 0... IV STA (20:38)
--- NOTE | 2019-03-23 21:38 | Hospitalist Consultation ---
Date of Consultation March 23, 2019 Assessment & Plan (1) Arm paresthesia, left: Patient neurologically intact at present, nonfocal exam, imaging to include CT head, CTA head and neck with atherosclerotic disease 50% stenosis in proximal right ICA and 60-70% stenosis in the proximal left ICA. Doubt that this is contributing to patient's symptoms. Symptoms most likely secondary to anxiety. Patient had similar symptoms prior to this admission - he was evaluated by Neurology and thought to have possible seizures. Patient denies seizure activity with this episode. States he wishes to return to -Recommend continuing Crestor -Will start ASA 81mg po daily Present on Admission?: Yes (2) Paresthesia of left leg: As above -Crestor and ASA Present on Admission?: Yes (3) EtOH dependence: Patient with significant alcohol history. He reports drinking approximatly 2 large bottles of whiskey weekly. Last drink was 03/21/19 at 17:00. Patient has had withdrawal in the past -Recommend AWSS for withdrawal treatment as needed Present on Admission?: Yes (4) Major depression, recurrent: Chronic. -Continue Celexa (5) Suicidal ideations: Patient states he is no longer feeling suicidal. He is embarrassed of his actions. Contracted for safety in the hospital -Per Psychiatry Present on Admission?: Yes (6) Hypertension: Blood pressure presently stable -Continue to monitor Present on Admission?: Yes (7) Hyperlipidemia: Chronic. Stable -Continue Crestor (8) Anxiety: As above -Continue per Psychiatry, Celexa and Ativvan History of Present Illness Reason for Consultation: Possible medical admission History of Present Illness Gaudencio Hammonds is a 58yo C male with history of HTN, HLP, Anxiety, Diverticulosis, Prostate CA s/p seeds and XRT, EtOH abuse and MDD. Patient came to [facility] on 03/21 as a voluntary admission for suicidal ideation. Patient had gone to a gun store with plan to purchase a firearm for self harm. He was admitted to for continued care. This evening after dinner he was sanding in the common area when he developed tingling in his left foot, then noted that his left side was tingling to involve his UE and LE, no facial tingling, no speech disturbance, no visual disturbance. After which he developed a bandlike he adache. Patient denies weakness of the LUE or LLE but states that his gait was unstable because he felt clumsy. No muscular contractions or twitching. Patient laid down and reported feeling better. He reports feeling very anxious prior to this event - felt that his anxiety was building all day and peaked prior to the event, around 17:30. He reportedly received a Hydroxyzine with some improvement in anxiety symptoms. Presenlty tingling has resolved. Still with a dull headache. ER: Banana bag Allergies Allergy/AdvReac Type Severity Reaction Status Date / Time bee venom protein (honey bee) Allergy Severe ANAPHYLAXIS Verified 03/23/19 20:11 cat dander Allergy Intermediate Itchy/Watery Verified 03/23/19 20:11 Eyes, Itchy throat tamsulosin Allergy Intermediate Hives Verified 03/23/19 20:11 Home Medications Home Medications Medication Instructions Recorded Confirmed Type rosuvastatin [Crestor] 10 mg PO DAILY 09/13/18 03/23/19 History epinephrine [EpiPen] 0.3 mg IM DIRECTED PRN 03/21/19 03/23/19 History levetiracetam 500 mg PO BID 03/21/19 03/23/19 History pantoprazole 40 mg PO QAM 03/21/19 03/23/19 History citalopram 30 mg PO QAM #1 tab 03/23/19 03/23/19 Rx gabapentin 600 mg PO Q12H #1 tab 03/23/19 03/23/19 Rx gabapentin 600 mg PO Q24H #1 tab 03/23/19 03/23/19 Rx gabapentin 600 mg PO Q8H #1 tab 03/23/19 03/23/19 Rx lorazepam [Ativan] 1 mg PO .UD PRN 03/23/19 03/23/19 History ropinirole 0.5 mg PO DAILY@1900 #1 tab 03/23/19 03/23/19 Rx Patient History Medical History Hypertension (Chronic) Hyperlipidemia (Chronic) Anxiety (Chronic) Diverticulosis (Chronic) Left arm weakness Prostate cancer (Resolved 07/30/16) "STAGING: Prostate, adenocarcinoma, triny 3 + 4, PSA 4.65, cT1c, group IIA Prostate gland size by TRUS - 25.1 TREATMENT: 1. Status post prostate seed implant as boost 11/06/2016 43 seeds were placed 8500 cGy 2. Status post completion of IMRT/IGRT completed 01/28/2017 received 4500 cGy" On 12/06/16 15:38 Tricia Solorio wrote "STAGING: Prostate, adenocarcinoma, triny 3 + 4, PSA 4.65, cT1c, group IIA Prostate gland size by TRUS - 25.1 TREATMENT: 1. 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 Pallet Builder Required: No Beliefs That Will Affect Care: None Feels Safe at Home: Yes Smoking Status: Current some day smoker Tobacco Type: cigars Review of Systems Review of Systems: All systems reviewed & are unremarkable except as noted in HPI & below Physical Exam 2 Physical Exam: General: patient resting comfortably, NAD, non-toxic in appearance, AA&O x 4 Skin: warm, dry, intact, no rashes or lesions HEENT: NC/AT, PERRL, EOMI, anicteric sclera, conjunctiva without injection, external ear normal to inspection and nontender, nares patent, moist mucus membranes, dentition intact, no oropharyngeal lesions, neck supple, trachea midline, no LAD, no thyromegaly, no JVD Heart: +S1/S2, regular, no m/r/g Lungs: equal air entry bilaterally, no rales/rhonchi/wheezes Abd: +BS, soft, NT/ND, no masses/organomegaly/ascites Ext: warm, 2+ pulses in UE/LE bilaterally, no clubbing/cyanosis or edema Neuro: nonfocal, patient AA&O x 4, speech intact, no facial droop, moving all extremities on command with equal strength 5/5 Results & Data Vital Signs (Past 12 Hours) Vital Signs Temp Pulse Pulse Resp BP BP Pulse Ox 03/23/19 21:30 66 18 170/92 H 99 03/23/19 20:32 60 20 141/77 H 96 03/23/19 19:35 65 99 03/23/19 19:08 36.9 C 64 16 146/84 H 95 Laboratory Results Lab Results 03/23/19 03/23/19 Range/Units 19:36 23:04 Folate > 24.00 (>5.38) ng/ml Ethyl Alcohol mg/dL < 3.0 (0-3) mg/dl Diagnostic Findings HEAD & NECK CTA HISTORY: Left-sided weakness stroke sx TECHNIQUE: Multiaxial CT images of the head were performed both before and after the the intravenous administration of contrast to evaluate the major cerebral vessels. Multiaxial CT images of the neck were also performed following the intravenous administration of contrast to evaluate the major cervical vessels. Maximum intensity projection images were also obtained. A dose lowering technique was utilized adhering to the principles of ALARA. COMPARISON: Head CT 03/23/2019. Brain MRI 08/07/2017. Carotid Doppler study 08/07/2017. FINDINGS: There is no mass, hematoma, midline shift, or acute infarct. Mild diffuse narrowing within the bilateral carotid siphons due to the diffuse atherosclerotic plaque. The basilar artery is widely patent. The major dural venous sinuses are patent. The bilateral ACAs, MCAs, world language teacher show no significant stenosis, occlusion, aneurysm. The aortic arch and proximal great vessels are widely patent. Moderate calcified plaque at the origin of the right vertebral artery without significant stenosis. The left vertebral artery is slightly hypoplastic. No significant stenosis within the cervical portions of the bilateral vertebral arteries. Moderate focal stenosis of approximately 50% within the intradural segment of the left distal vertebral artery. The distal right vertebral artery is widely patent. Moderate calcified plaque within the bilateral proximal internal carotid arteries. This results in approximately 50% focal stenosis within the proximal right internal carotid artery and 60-70% focal stenosis at the proximal left internal carotid artery. The bilateral common carotid arteries are widely patent. The mid to distal bilateral internal carotid arteries are also patent. IMPRESSION: 1. No occlusion or aneurysm within the [place]. Mild diffuse narrowing within the bilateral carotid siphons due to the diffuse atherosclerotic plaque. 2. Approximately 50% focal stenosis within the proximal right internal carotid artery and 60-70% stenosis within the proximal left internal carotid artery due to the atherosclerotic plaque. 3. Moderate focal stenosis of approximately 50% within the distal left vertebral artery. Electronically signed by: Luciano Chaney M.D. 03/23/2019 7:40 PM Dictated: 03/23/191924 Transcribed: 03/23/191924 CT SCAN OF THE BRAIN WITHOUT IV CONTRAST CLINICAL HISTORY: Strokelike symptoms. COMPARISON STUDY: CT of the brain dated 09/13/2018. TECHNIQUE: Unenhanced axial CT scan of the brain is performed from the vertex to the skull base. A dose lowering technique was utilized adhering to the principles of ALARA. CT DOSE: 1256.03 mGy.cm FINDINGS: Brain parenchyma: There is mild subcortical and periventricular microangiopathic disease. There is no hemorrhage, mass effect, or evidence of acute territorial ischemia by CT criteria. Naylor-white matter differentiation is preserved. No extra-axial fluid collection is seen. Ventricles, sulci, cisterns: Normal in configuration. Intracranial vasculature: There is atherosclerotic calcification of the cavernous carotid and vertebral arteries. Calvarium: Unremarkable. Sinuses and mastoids: The visualized paranasal sinuses are clear. There is a small left mastoid effusion. The right mastoid air cells are well pneumatized. Orbits: The bony orbits are grossly intact. IMPRESSION: There is no hemorrhage, mass effect, or evidence of acute territorial ischemia by CT criteria. Electronically signed by: Richar Minor M.D. 03/23/2019 7:25 PM Dictated: 03/23/191921 Transcribed: 03/23/191921 SINGLE VIEW CHEST CLINICAL HISTORY: Strokelike symptoms. FINDINGS: An AP, portable, upright chest radiograph is compared to study dated 03/21/2019. The examination is degraded by portable technique and apical lordotic positioning. The heart is mildly enlarged there is atherosclerotic calcification of the thoracic aorta. The pulmonary vasculature is noncongested. Chronic interstitial thickening is similar to previous. There is mild bibasilar scarring/atelectasis. No airspace consolidation or large pleural effusion is identified. No pneumothorax is seen. The bony thorax is grossly intact. IMPRESSION: Mild cardiac enlargement with no acute cardiopulmonary abnormality. Electronically signed by: Richar Minor M.D. 03/23/2019 7:42 PM Dictated: 03/23/191940 Transcribed: 03/23/191940 ECG Additional Comments: The study shows sinus bradycardia at 58bpm, normal axis, HC=801, QRS=94, GTd=836, no acute ischemic changes, no change from prior study 21 March 2019 (1) EtOH dependence Substance use status: uncomplicated Qualified Code(s): F10.20 - Alcohol dependence, uncomplicated
--- NOTE | 2019-03-23 21:48 | Emergency Department Note ---
Entered by [id number] acting as a scribe for Mahesh Lyn MD History of Present Illness General Chief complaint: Stroke/CVA Symptoms Stated complaint: STROKE SX Time Seen by Provider: 03/23/19 18:53 Home Medications Home Medications Medication Instructions Recorded Confirmed Type rosuvastatin [Crestor] 10 mg PO DAILY 09/13/18 03/23/19 History epinephrine [EpiPen] 0.3 mg IM DIRECTED PRN 03/21/19 03/23/19 History levetiracetam 500 mg PO BID 03/21/19 03/23/19 History pantoprazole 40 mg PO QAM 03/21/19 03/23/19 History citalopram 30 mg PO QAM #1 tab 03/23/19 03/23/19 Rx gabapentin 600 mg PO Q12H #1 tab 03/23/19 03/23/19 Rx gabapentin 600 mg PO Q24H #1 tab 03/23/19 03/23/19 Rx gabapentin 600 mg PO Q8H #1 tab 03/23/19 03/23/19 Rx lorazepam [Ativan] 1 mg PO .UD PRN 03/23/19 03/23/19 History ropinirole 0.5 mg PO DAILY@1900 #1 tab 03/23/19 03/23/19 Rx Allergies Allergy/AdvReac Type Severity Reaction Status Date / Time bee venom protein (honey bee) Allergy Severe ANAPHYLAXIS Verified 03/23/19 20:11 cat dander Allergy Intermediate Itchy/Watery Verified 03/23/19 20:11 Eyes, Itchy throat tamsulosin Allergy Intermediate Hives Verified 03/23/19 20:11 Past Med/Surg History Medical History Hypertension (Chronic) Hyperlipidemia (Chronic) Anxiety (Chronic) Diverticulosis (Chronic) Left arm weakness Prostate cancer (Resolved 07/30/16) "STAGING: Prostate, adenocarcinoma, triny 3 + 4, PSA 4.65, cT1c, group IIA Prostate gland size by TRUS - 25.1 TREATMENT: 1. Status post prostate seed implant as boost 11/06/2016 43 seeds were placed 8500 cGy 2. Status post completion of IMRT/IGRT completed 01/28/2017 received 4500 cGy" On 12/06/16 15:38 Tricia Solorio wrote "STAGING: Prostate, adenocarcinoma, triny 3 + 4, PSA 4.65, cT1c, group IIA Prostate gland size by TRUS - 25.1 TREATMENT: 1. Status post prostate seed implant as boost 11/06/2016 43 seeds were placed 8500 cGy" On 08/22/16 10:51 Sallyravinder Cottrell wrote "STAGING: Prostate, adenocarcinoma, triny 3 + 4, PSA 4.65, cT1c, group IIA Prostate gland size by TRUS - 25.1 " TIA (transient ischemic attack) Alcohol abuse Depression Panic attacks Surgical History History of cholecystectomy History of repair of ACL Family History Other Cancer Social History Preferred Language: Swedish Communication Ability: Effective Green End Worker Required: No Beliefs That Will Affect Care: None Feels Safe at Home: Yes Smoking Status: Current some day smoker Tobacco Type: cigars Physical Exam Vital Signs Vital Signs - 24 hr 03/23/19 19:08 03/23/19 19:35 03/23/19 20:32 Temperature 36.9 C Temperature Source Oral Sepsis Recent Fever Within 48 Hours No Sepsis Action Taken by Nursing No Action Required Pulse Rate 64 65 Pulse Rate [Right Finger] 60 Pulse Rhythm Regular Respiratory Rate 16 20 Respiratory Effort / Characteristics Non-Labored Spontaneous Respiratory Depth Normal Blood Pressure 146/84 H Blood Pressure [Right Arm] 141/77 H Blood Pressure Mean 104 Blood Pressure Mean [Right Arm] 98 Blood Pressure Position Sitting Pulse Oximetry 95 99 96 Oxygen Delivery Method Room Air Room Air 03/23/19 21:30 03/23/19 22:30 Temperature Temperature Source Sepsis Recent Fever Within 48 Hours Sepsis Action Taken by Nursing Pulse Rate Pulse Rate [Right Finger] 66 64 Pulse Rhythm Respiratory Rate 18 18 Respiratory Effort / Characteristics Respiratory Depth Blood Pressure Blood Pressure [Right Arm] 170/92 H 136/81 Blood Pressure Mean Blood Pressure Mean [Right Arm] 118 99 Blood Pressure Position Pulse Oximetry 99 98 Oxygen Delivery Method Course Administered Medications Citalopram Hydrobromide (Celexa) 30 mg PO [facility] Stop: 04/23/19 08:59 Last Admin: 03/24/19 08:25 Dose: 30 mg Documented by: [id number] Folic [facility] (Folvite) [facility] [place]: 04/23/19 11:59 Last Admin: 03/24/19 13:06 Dose: 1 mg Documented by: [id number] Gabapentin (Neurontin) [address] [facility] Stop: 04/23/19 08:59 Last Admin: 03/24/19 21:21 Dose: 600 mg Documented by: [id number] Admin: 03/24/19 08:29 Dose: 600 mg Documented by: [id number] Hydroxyzine HCl (Vistaril) 25 mg PO Q4H PRN PRN Reason: Anxiety Stop: 04/22/19 22:40 Last Admin: 03/24/19 13:10 Dose: 25 mg Documented by: [id number] Ioversol (Optiray 320 125ml) 119 ml IV ONCE PRN PRN Reason: Interaction Checking Stop: 03/27/19 19:19 Last Admin: 03/23/19 19:20 Dose: 119 ml Documented by: [id number] Levetiracetam (Keppra) [address] [facility] Stop: 04/23/19 08:59 Last Admin: 03/24/19 21:21 Dose: 500 mg Documented by: [id number] Admin: 03/24/19 08:29 Dose: 500 mg Documented by: [id number] Multivitamins (Multivitamin Tab) [facility] [place]: 04/23/19 11:59 Last Admin: 03/24/19 13:07 Dose: 1 tab Documented by: [id number] Pantoprazole Sodium (Protonix) [address] [facility] Stop: 04/23/19 08:59 Last Admin: 03/24/19 08:29 Dose: 40 mg Documented by: [id number] Ropinirole HCl (Requip) 0.5 mg PO DAILY@1900 [facility] Stop: 04/23/19 18:59 Last Admin: 03/24/19 18:55 Dose: 0.5 mg Documented by: [id number] Rosuvastatin Calcium (Crestor) [address] [facility] Stop: 04/23/19 08:59 Last Admin: 03/24/19 08:28 Dose: 10 mg Documented by: [id number] Thiamine HCl (Vitamin B-1) [address] [facility] Stop: 04/23/19 11:59 Last Admin: 03/24/19 13:07 Dose: 100 mg Documented by: [id number] Discontinued Medications Aspirin (Ecotrin Ectab) [address] [facility] Stop: 04/23/19 08:59 Last Admin: 03/24/19 08:28 Dose: 81 mg Documented by: [id number] Gabapentin (Neurontin) 600 mg PO NOW STA Stop: 03/24/19 01:05 Last Admin: 03/24/19 01:27 Dose: 600 mg Documented by: [id number] Multivitamins 10 ml/ Thiamine HCl 100 mg/ Folic Acid 1 mg/Sodium Chloride 1,011.2 mls @ 1,011.2 mls/hr IV .Q1H STA Stop: 03/23/19 21:37 Last Infusion: 03/23/19 22:05 Dose: 0 mls/hr Documented by: [id number] Admin: 03/23/19 20:52 Dose: 1,011.2 mls/hr Documented by: [id number] Levetiracetam (Keppra) 500 mg PO ONCE STA Stop: 03/24/19 01:02 Last Admin: 03/24/19 01:27 Dose: 500 mg Documented by: [id number] Lorazepam (Ativan) 1 mg PO ONE PRN; Protocol PRN Reason: EtoH Withdrawal AWSS 6-10 Last Admin: 03/24/19 08:29 Dose: 1 mg Documented by: [id number] Medical Decision Making Laboratory Data Lab Results 03/23/19 Range/Units 19:36 Ethyl Alcohol mg/dL < 3.0 (0-3) mg/dl MDM Narrative The patient is a pleasant 58 y/o gentleman with a pmhx of alcohol abuse, etoh withdrawal and seizures, SDH, depression and SI who presents to the emergency department from for evaluation of left sided paraesthesias, which began at approximately 1830 tonight per HPI. Patient was admitted to [facility] yesterday v oluntarily on a 201 for depression and SI. While on 3 S patient was being treated with gabapentin for possibility of etoh withdrawal but per report had not developed any systems to suggest severe withdrawal. On arrival the patient is well-appearing, pleasant, in NAD, AFVSS. He is neuro intact without objective deficits. He still reports subjective tingling in his arm and leg. EOMI. No nystamgus. PEARRL. Cerebellar function intact including [id number], alternating palms, [id number]. 5/5 strength and SILT x 4 extremities. EKG without evidence of acute ischemia. CXR negative. Lab work performed resulting under [facility] V-number was unremarkable. WBC 4.3 similar to prior Hbg wnl. Platelets 98 similar to prior. Magnesium 1.7. Troponin negative. AST 40 improved from prior. CTA head and neck negative for ICH, CVA, or severe narrowing or occlusion of large vessels. Otherwise demonstrates, mild diffuse narrowing within the bilateral carotid siphons 2/2 atherosclerotic plaque, 50% focal stenosis within the proximal right internal carotid artery and 60-70% stenosis within the proximal left internal carotid artery, and moderate focal stenosis of approximately 50% within the distal left vertebral artery. Given patient's mild sx and history of prior intracranial bleeds, not a TPA candidate. CTA without arterial occlusion and so no indication for stroke alert. Moreover, patient's sx could be explained by his alcohol abuse and possible mild withdrawal sx. Patient initially referred for admission for further medical evaluation. Case was d/w dr. Santos, [facility] hospitalist, who upon evaluation though patient could be medically cleared. Given reassuring w/u and mild subjective symptoms this is reasonable. CM updated 3[facility] who accepts the patient again under a 201, which was again signed. Impression & Plan Arm paresthesia, left, Paresthesia of left leg Discharge Plan Visit Data *Final* Discharge Date/Time: 03/24/19 00:14 Chief Complaint: Stroke/CVA Symptoms Stated Complaint: STROKE SX ED Provider: Mahesh Lyn Discharge Problem: Arm paresthesia, left, Paresthesia of left leg Patient Disposition: Admitted As Inpatient Discharge Instructions Interventions: ED Discharge Assessment Last Done: 03/24/19 00:14 The scribe's documentation has been prepared under my direction and personally reviewed by me in its entirety. I confirm that the note above accurately reflects all work, treatment, procedures, and medical decision making performed by me.
[2019-03-23] MEDS ORDERED: SODIUM CHLORIDE 0.65% NA SOLN 45 ML (OCEAN) PRN (22:41)
[2019-03-23] MEDS ORDERED: LORazepam 1 MG TAB PO PRN ×2 (22:41→22:47)
[2019-03-23] MEDS ORDERED: ACETAMINOPHEN 325 MG TAB PO PRN (22:41)
[2019-03-23] MEDS ORDERED: MAGNESIUM HYDROXIDE SUSP 30 ML UDC PO PRN (22:41)
[2019-03-23] MEDS ORDERED: BISMUTH SUBSALICYLATE PER ML OMNICELL CHARGE PO PRN (22:41)
[2019-03-23] MEDS ORDERED: ALUMINUM/MAGNESIUM SUSP 30 ML UDC PO PRN (22:41)
[2019-03-23] MEDS ORDERED: EPINEPHRINE ADULT AUTO-INJECT 0.3 MG SYR IM PRN (22:47)
--- NOTE | 2019-03-23 22:55 | Psychiatric Progress Note ---
Date of Service March 23, 2019 Interval History Chief Complaint case reviewed with hospitalist Dr. Latoya Santos. Patient's complaint of dizziness and tingling was evaluated medically and has resolved. There is no evidence of evolving neurologic or cardiac issue. He does have stenosis of arteries and hospitalist feels safe for him to resume treatment on the [facility] with [facility] hospitalist consultation. BP is 136/81, P-64. Reviewed that no cardiac monitoring is available on unit. QTc less than 440. Unclear exactly how to resume Neurontin taper so q12 hr order entered until team can reassess in am. If symptoms recur, likely prn Ativan indicated. Physical Exam Vital Signs (Past 24 Hours) Last Vital Signs Temp 36.9 C 03/23/19 19:08 Pulse 64 03/23/19 22:30 Resp 18 03/23/19 22:30 BP 136/81 03/23/19 22:30 Pulse Ox 98 03/23/19 22:30 Results & Data Laboratory Results Laboratory Results - last 24 hr 03/23/19 19:36 Ethyl Alcohol mg/dL < 3.0 Current Inpatient Medications Current Inpatient Medications: Current Inpatient Medications Acetaminophen (Tylenol) 650 mg PO Q4H PRN PRN Reason: Headache or Minor Fever Stop: 04/22/19 22:40 Al Hydrox/Mg Hydrox/Simethicone (Maalox) 30 ml PO Q4H PRN PRN Reason: GI Upset Stop: 04/22/19 22:40 Bismuth Subsalicylate (Kaopectate) 15 ml PO PRN PRN PRN Reason: Loose Stool Stop: 04/22/19 22:40 Epinephrine HCl (Epipen) 0.3 mg IM DIRECTED PRN PRN Reason: Allergic Reaction Stop: 04/22/19 22:46 Hydroxyzine HCl (Vistaril) 25 mg PO Q4H PRN PRN Reason: Anxiety Stop: 04/22/19 22:40 Hydroxyzine HCl (Vistaril) 50 mg PO HSZ PRN PRN Reason: Insomnia Stop: 04/22/19 22:40 Ioversol (Optiray 320 125ml) 119 ml IV ONCE PRN PRN Reason: Interaction Checking Stop: 03/27/19 19:19 Last Admin: 03/23/19 19:20 Dose: 119 ml Documented by: Levetiracetam (Keppra) 500 mg PO BID [facility] Stop: 04/23/19 08:59 Lorazepam (Ativan) 1 mg PO ONE PRN; Protocol PRN Reason: EtoH Withdrawal AWSS 6-10 Lorazepam (Ativan) 1 mg PO .UD PRN PRN Reason: Anxiety Stop: 04/22/19 22:46 Magnesium Hydroxide (Milk Of Magnesia) 30 ml PO DAILY PRN PRN Reason: Heartburn Stop: 04/22/19 22:40 Sodium Chloride ([place] Nasal) 1 - 2 sprays NA PRN PRN PRN Reason: Nasal Dryness/Congestion Stop: 04/22/19 22:40
[2019-03-23 23:45] VITALS: O2SAT 96
[2019-03-24] MEDS ORDERED: levETIRAcetam 500 MG TAB PO STA (01:01)
[2019-03-24] MEDS ORDERED: GABAPENTIN 600 MG TAB PO STA (01:04)
--- NOTE | 2019-03-24 05:38 | Emergency Department Note ---
Entered by Kimi Duncan acting as a scribe for Mahesh Lyn MD History of Present Illness General Chief complaint: Stroke/CVA Symptoms Stated complaint: STROKE SX Time Seen by Provider: 03/23/19 18:53 Source: patient Limitations: no limitations History of Present Illness Onset (ago): hour(s) 1 Location: upper extremity (left) and lower extremity (left) Pain Consistency: + constant Quality: + other ("tingling") Exacerbated By: + movement Associated symptoms: + denies other symptoms (difficulty speaking) and + headaches; no chest pain and no shortness of breath The patient is a 58 year old male who presents to the ED complaining of constant upper extremity and lower extremity "tingling" that began [employer]. He describes the tingling as "pins and needles" and "numbness." His daughter, at bedside, states that his tingling sensation began when he was walking. The patient states that he reported his symptoms to the nurse that was with him as soon as he experienced them, noting that this was around 18:30. He complains of a headache. The patient denies any SOB, chest pain, and difficulty speaking. He notes that movement worsens the symptoms. The patient notes that he was transferred from [address] [place] [address]. His daughter, at bedside, reports that he hasn't consumed any alcohol for the past few days, noting that he started drinking last month after a few months of being sober. The patient states that he hasn't felt any withdrawal, reporting that he has been feeling good all day. His daughter notes that the patient takes Keppra twice daily, stating that his seizures began after he starting drinking heavily. Home Medications Home Medications Medication Instructions Recorded Confirmed Type rosuvastatin [Crestor] 10 mg PO DAILY 09/13/18 03/23/19 History epinephrine [EpiPen] 0.3 mg IM DIRECTED PRN 03/21/19 03/23/19 History levetiracetam 500 mg PO BID 03/21/19 03/23/19 History pantoprazole 40 mg PO QAM 03/21/19 03/23/19 History citalopram 30 mg PO QAM #1 tab 03/23/19 03/23/19 Rx gabapentin 600 mg PO Q12H #1 tab 03/23/19 03/23/19 Rx gabapentin 600 mg PO Q24H #1 tab 03/23/19 03/23/19 Rx gabapentin 600 mg PO Q8H #1 tab 03/23/19 03/23/19 Rx lorazepam [Ativan] 1 mg PO .UD PRN 03/23/19 03/23/19 History ropinirole 0.5 mg PO DAILY@1900 #1 tab 03/23/19 03/23/19 Rx Allergies Allergy/AdvReac Type Severity Reaction Status Date / Time bee venom protein (honey bee) Allergy Severe ANAPHYLAXIS Verified 03/23/19 20:11 cat dander Allergy Intermediate Itchy/Watery Verified 03/23/19 20:11 Eyes, Itchy throat tamsulosin Allergy Intermediate Hives Verified 03/23/19 20:11 Past Med/Surg History Medical History Hypertension (Chronic) Hyperlipidemia (Chronic) Anxiety (Chronic) Diverticulosis (Chronic) Left arm weakness Prostate cancer (Resolved 07/30/16) "STAGING: Prostate, adenocarcinoma, triny 3 + 4, PSA 4.65, cT1c, group IIA Prostate gland size by TRUS - 25.1 TREATMENT: 1. Status post prostate seed implant as boost 11/06/2016 43 seeds were placed 8500 cGy 2. Status post completion of IMRT/IGRT completed 01/28/2017 received 4500 cGy" On 12/06/16 15:38 Tricia Solorio wrote "STAGING: Prostate, adenocarcinoma, triny 3 + 4, PSA 4.65, cT1c, group IIA Prostate gland size by TRUS - 25.1 TREATMENT: 1. Status post prostate seed implant as boost 11/06/2016 43 seeds were placed 8500 cGy" On 08/22/16 10:51 Cristofer Cottrell wrote "STAGING: Prostate, adenocarcinoma, triny 3 + 4, PSA 4.65, cT1c, group IIA Prostate gland size by TRUS - 25.1 " TIA (transient ischemic attack) Alcohol abuse Depression Panic attacks Surgical History History of cholecystectomy History of repair of ACL Family History Other Cancer Social History Preferred Language: German Communication Ability: Effective Ekg Manager Required: No Beliefs That Will Affect Care: None Feels Safe at Home: Yes Smoking Status: Current some day smoker Tobacco Type: cigars Review of Systems See HPI for pertinent positives & negatives. and A total of 10 systems reviewed and were otherwise negative Physical Exam Vital Signs Vital Signs - 24 hr 03/23/19 19:08 03/23/19 19:35 03/23/19 20:32 Temperature 36.9 C Temperature Source Oral Sepsis Recent Fever Within 48 Hours No Sepsis Action Taken by Nursing No Action Required Pulse Rate 64 65 Pulse Rate [Right Finger] 60 Pulse Rhythm Regular Respiratory Rate 16 20 Respiratory Effort / Characteristics Non-Labored Spontaneous Respiratory Depth Normal Blood Pressure 146/84 H Blood Pressure [Right Arm] 141/77 H Blood Pressure Mean 104 Blood Pressure Mean [Right Arm] 98 Blood Pressure Position Sitting Pulse Oximetry 95 99 96 Oxygen Delivery Method Room Air Room Air 03/23/19 21:30 03/23/19 22:30 Temperature Temperature Source Sepsis Recent Fever Within 48 Hours Sepsis Action Taken by Nursing Pulse Rate Pulse Rate [Right Finger] 66 64 Pulse Rhythm Respiratory Rate 18 18 Respiratory Effort / Characteristics Respiratory Depth Blood Pressure Blood Pressure [Right Arm] 170/92 H 136/81 Blood Pressure Mean Blood Pressure Mean [Right Arm] 118 99 Blood Pressure Position Pulse Oximetry 99 98 Oxygen Delivery Method GENERAL: Awake, alert, well-appearing, in no distress HENT: Normocephalic, atraumatic. Oropharynx unremarkable. EYES: Normal conjunctiva. Sclera non-icteric. NECK: Supple. No nuchal rigidity. FROM. No JVD. RESPIRATORY: CTAB. CARDIAC: Regular rate, normal rhythm. Extremities warm and well perfused. Pulses equal. ABDOMEN: Soft, non-distended. No tenderness to palpation. No rebound or guarding. No masses. RECTAL: Deferred. MUSCULOSKELETAL: Chest examination reveals no tenderness. The back is symmetrical on inspection without obvious abnormality. There is no CVA tenderness to palpation. No joint edema. LOWER EXTREMITIES: Calves are equal size bilaterally and non-tender. No edema. No discoloration. NEURO: Normal sensorium. No sensory or motor deficits noted. 5/5 strength and SILT x4 extremities. Cerebellar function intact, including finger to nose, alternating palms, heel to alarcon. SKIN: No rash or jaundice noted. Course 1910: I spoke with the patient's daughter. 1930: The patient was evaluated in room A01. A complete history and physical exam was performed. 1953: The patient was moved to room B3. 2043: I spoke with Dr. Debbie Santos, [facility] hospitalist, about the patient�s case. She will further evaluate the patient. 2229: I reassessed the patient. 2253: I spoke with Dr. Debbie Santos, and she stated that the patient will be admitted to [address] [place] [address]. Consultations Consultation #1: I spoke with Dr. Debbie Santos, [facility] hospitalist, about the patient�s case. She will further evaluate the patient. Time: 20:44 Administered Medications Citalopram Hydrobromide (Celexa) 30 mg PO QAM [facility] Stop: 04/23/19 08:59 Last Admin: 03/24/19 08:25 Dose: 30 mg Documented by: [id number] Folic Acid (Folvite) 1 mg PO QAM [facility] Stop: 04/23/19 11:59 Last Admin: 03/24/19 13:06 Dose: 1 mg Documented by: [id number] Gabapentin (Neurontin) 600 mg PO Q12H [facility] Stop: 04/23/19 08:59 Last Admin: 03/24/19 21:21 Dose: 600 mg Documented by: [id number] Admin: 03/24/19 08:29 Dose: 600 mg Documented by: [id number] Hydroxyzine HCl (Vistaril) 25 mg PO Q4H PRN PRN Reason: Anxiety Stop: 04/22/19 22:40 Last Admin: 03/24/19 13:10 Dose: 25 mg Documented by: [id number] Ioversol (Optiray 320 125ml) 119 ml IV ONCE PRN PRN Reason: Interaction Checking Stop: 03/27/19 19:19 Last Admin: 03/23/19 19:20 Dose: 119 ml Documented by: [id number] Levetiracetam (Keppra) 500 mg PO BID [facility] Stop: 04/23/19 08:59 Last Admin: 03/24/19 21:21 Dose: 500 mg Documented by: [id number] Admin: 03/24/19 08:29 Dose: 500 mg Documented by: [id number] Multivitamins (Multivitamin Tab) 1 tab PO QAM [facility] Stop: 04/23/19 11:59 Last Admin: 03/24/19 13:07 Dose: 1 tab Documented by: [id number] Pantoprazole Sodium (Protonix) 40 mg PO QAM [facility] Stop: 04/23/19 08:59 Last Admin: 03/24/19 08:29 Dose: 40 mg Documented by: [id number] Ropinirole HCl (Requip) 0.5 mg PO DAILY@1900 [facility] Stop: 04/23/19 18:59 Last Admin: 03/24/19 18:55 Dose: 0.5 mg Documented by: [id number] Rosuvastatin Calcium (Crestor) 10 mg PO DAILY [facility] Stop: 04/23/19 08:59 Last Admin: 03/24/19 08:28 Dose: 10 mg Documented by: [id number] Thiamine HCl (Vitamin B-1) 100 mg PO QAM [facility] Stop: 04/23/19 11:59 Last Admin: 03/24/19 13:07 Dose: 100 mg Documented by: [id number] Discontinued Medications Aspirin (Ecotrin Ectab) 81 mg PO DAILY [facility] Stop: 04/23/19 08:59 Last Admin: 03/24/19 08:28 Dose: 81 mg Documented by: [id number] Gabapentin (Neurontin) 600 mg PO NOW STA Stop: 03/24/19 01:05 Last Admin: 03/24/19 01:27 Dose: 600 mg Documented by: [id number] Multivitamins 10 ml/ Thiamine HCl 100 mg/ Folic Acid 1 mg/Sodium Chloride 1,011.2 mls @ 1,011.2 mls/hr IV .Q1H [facility] Stop: 03/23/19 21:37 Last Infusion: 03/23/19 22:05 Dose: 0 mls/hr Documented by: [id number] Admin: 03/23/19 20:52 Dose: 1,011.2 mls/hr Documented by: [id number] Levetiracetam (Keppra) 500 mg PO ONCE [facility] Stop: 03/24/19 01:02 Last Admin: 03/24/19 01:27 Dose: 500 mg Documented by: [id number] Lorazepam (Ativan) 1 mg PO ONE PRN; Protocol PRN Reason: EtoH Withdrawal AWSS 6-10 Last Admin: 03/24/19 08:29 Dose: 1 mg Documented by: [id number] Medical Decision Making Differential Diagnosis Differential includes acute coronary syndrome, myocardial infarction, CVA, TIA, anemia, infection, pneumonia, UTI, pyelonephritis, poor nutrition, dehydration, electrolyte disturbance,hypoglycemia. Medical Records Attestation: I reviewed the patient's medical records. Home Medications Current Medication List: was personally reviewed by me Laboratory Data Attestation: I reviewed the patient's lab results. Lab Results 03/23/19 Range/Units 19:36 Ethyl Alcohol mg/dL < 3.0 (0-3) mg/dl Imaging Data Radiologist's Impression: Radiology results as stated below per my review and the radiologist's interpretation: SINGLE VIEW CHEST CLINICAL HISTORY: Strokelike symptoms. FINDINGS: An AP, portable, upright chest radiograph is compared to study dated 03/21/2019. The examination is degraded by portable technique and apical lordotic positioning. The heart is mildly enlarged there is atherosclerotic calcification of the thoracic aorta. The pulmonary vasculature is noncongested. Chronic interstitial thickening is similar to previous. There is mild bibasilar scarring/atelectasis. No airspace consolidation or large pleural effusion is identified. No pneumothorax is seen. The bony thorax is grossly intact. IMPRESSION: Mild cardiac enlargement with no acute cardiopulmonary abnormality. Electronically signed by: Richar Minor M.D. 03/23/2019 7:[address] SCAN OF THE BRAIN WITHOUT IV CONTRAST CLINICAL HISTORY: Strokelike symptoms. COMPARISON STUDY: CT of the brain dated 09/13/2018. TECHNIQUE: Unenhanced axial CT scan of the brain is performed from the vertex to the skull base. A dose lowering technique was utilized adhering to the principles of ALARA. CT DOSE: 1256.03 mGy.cm FINDINGS: Brain parenchyma: There is mild subcortical and periventricular microangiopathic disease. There is no hemorrhage, mass effect, or evidence of acute territorial ischemia by CT criteria. Naylor-white matter differentiation is preserved. No ex tra-axial fluid collection is seen. Ventricles, sulci, cisterns: Normal in configuration. Intracranial vasculature: There is atherosclerotic calcification of the cavernous carotid and vertebral arteries. Calvarium: Unremarkable. Sinuses and mastoids: The visualized paranasal sinuses are clear. There is a small left mastoid effusion. The right mastoid air cells are well pneumatized. Orbits: The bony orbits are grossly intact. IMPRESSION: There is no hemorrhage, mass effect, or evidence of acute territorial ischemia by CT criteria. Electronically signed by: Richar Minor M.D. 03/23/2019 7:25 PM HEAD & NECK CTA HISTORY: Left-sided weakness stroke sx TECHNIQUE: Multiaxial CT images of the head were performed both before and after the the intravenous administration of contrast to evaluate the major cerebral vessels. Multiaxial CT images of the neck were also performed following the intravenous administration of contrast to evaluate the major cervical vessels. Maximum intensity projection images were also obtained. A dose lowering technique was utilized adhering to the principles of ALARA. COMPARISON: Head CT 03/23/2019. Brain MRI 08/07/2017. Carotid Doppler study 08/07/2017. FINDINGS: There is no mass, hematoma, midline shift, or acute infarct. Mild diffuse narrowing within the bilateral carotid siphons due to the diffuse atherosclerotic plaque. The basilar artery is widely patent. The major dural venous sinuses are patent. The bilateral ACAs, MCAs, automatic coil machine operator show no significant stenosis, occlusion, aneurysm. The aortic arch and proximal great vessels are widely patent. Moderate calcified plaque at the origin of the right vertebral artery without significant stenosis. The left vertebral artery is slightly hypoplastic. No significant stenosis within the cervical portions of the bilateral vertebral arteries. Moderate focal stenosis of approximately 50% within the intradural segment of the left distal vertebral artery. The distal right vertebral artery is widely patent. Moderate calcified plaque within the bilateral proximal internal carotid arteries. This results in approximately 50% focal stenosis within the proximal right internal carotid artery and 60-70% focal stenosis at the proximal left internal carotid artery. The bilateral common carotid arteries are widely patent. The mid to distal bilateral internal carotid arteries are also patent. IMPRESSION: 1. No occlusion or aneurysm within the [place]. Mild diffuse narrowing within the bilateral carotid siphons due to the diffuse atherosclerotic plaque. 2. Approximately 50% focal stenosis within the proximal right internal carotid artery and 60-70% stenosis within the proximal left internal carotid artery due to the atherosclerotic plaque. 3. Moderate focal stenosis of approximately 50% within the distal left vertebral artery. Electronically signed by: Luciano Chaney M.D. 03/23/2019 7:40 PM ECG Data Attestation: I personally reviewed and interpreted this ECG as follows: Indication: bradycardia Rate (beats per minute): 58 Rhythm: sinus bradycardia Findings: + other (normal axis ); no acute ischemic change Blood Pressure Blood Pressure Findings: Elevated blood pressure Additional Comments: further management by [facility] staff MDM Narrative The patient is a pleasant 58 y/o gentleman with a pmhx of alcohol abuse, etoh withdrawal and seizures, SDH, depression and SI who presents to the emergency department from [facility] for evaluation of left sided paraesthesias, which began at approximately 1830 tonight per HPI. Patient was admitted to yesterday voluntarily on a 201 for depression and SI. While on [facility] patient was being treated with gabapentin for possibility of etoh withdrawal but per report had not developed any systems to suggest severe withdrawal. On arrival the patient is well-appearing, pleasant, in NAD, AFVSS. He is neuro intact without objective deficits. He still reports subjective tingling in his arm and leg. EOMI. No nystamgus. PEARRL. Cerebellar function intact including [id number], alternat ing palms, [id number]. 5/5 strength and SILT x 4 extremities. EKG without evidence of acute ischemia. CXR negative. Lab work performed resulting under [facility] V-number was unremarkable. WBC 4.3 similar to prior [facility] wnl. Platelets 98 similar to prior. Magnesium 1.7. Troponin negative. AST 40 improved from prior. CTA head and neck negative for ICH, CVA, or severe narrowing or occlusion of large vessels. Otherwise demonstrates, mild diffuse narrowing within the bilateral carotid siphons 2/2 atherosclerotic plaque, 50% focal stenosis within the proximal right internal carotid artery and 60-70% stenosis within the proximal left internal carotid artery, and moderate focal stenosis of approximately 50% within the distal left vertebral artery. Given patient's mild sx and history of prior intracranial bleeds, not a TPA candidate. CTA without arterial occlusion and so no indication for stroke alert. Moreover, patient's sx could be explained by his alcohol abuse and possible mild withdrawal sx. Patient initially referred for admission for further medical evaluation. Case was d/w dr. Santos, [facility] hospitalist, who upon evaluation though patient could be medically cleared. Given reassuring w/u and mild subjective symptoms this is reasonable. CM updated who accepts the patient again under a 201, which was again signed. Impression & Plan Arm paresthesia, left, Paresthesia of left leg Discharge Plan Visit Data *Final* Discharge Date/Time: 03/24/19 00:14 Chief Complaint: Stroke/CVA Symptoms Stated Complaint: STROKE SX ED Provider: Cross,Mahesh E Discharge Problem: Arm paresthesia, left, Paresthesia of left leg Patient Disposition: Admitted As Inpatient Discharge Instructions Interventions: ED Discharge Assessment Last Done: 03/24/19 00:14 The wayneibe's documentation has been prepared under my direction and personally reviewed by me in its entirety. I confirm that the note above accurately reflects all work, treatment, procedures, and medical decision making performed by me.
[2019-03-24] MEDS: CITALOPRAM 20 MG TAB PO SCH (08:25)
[2019-03-24] MEDS: ROSUVASTATIN CALCIUM 10 MG TAB PO SCH (08:28)
[2019-03-24] MEDS: GABAPENTIN 600 MG TAB PO SCH ×2 (08:29→21:21)
[2019-03-24] MEDS: PANTOprazole 40 MG TAB PO SCH (08:29)
[2019-03-24] MEDS: levETIRAcetam 500 MG TAB PO SCH ×2 (08:29→21:21)
[2019-03-24] MEDS ORDERED: ASPIRIN 81 MG ECTAB PO SCH (09:00)
--- NOTE | 2019-03-24 11:37 | History & Physical ---
Date of Service March 24, 2019 Impression / Recommendations Impression 58-year-old male with a history of severe depression and alcohol dependence who presents with suicidality after he went into a gun store to buy a weapon to use to end his life, but did not follow through because there were no sales people in the store. Citalopram was increased on admission, but on day 2 of hospitalization he had paresthesias and headache concerning for stroke, so was discharged to the ER for medical workup. Symptoms were thought to be related to anxiety, and he was transferred back to the behavioral health unit last night. He had a family meeting with his this morning which was distressing to him as he feels his family is frustrated with him and his alcoholism. He endorses a lot of derogatory thoughts about himself, guilt, and blames himself or struggling with mental health issues. He remains severely depressed, anxious, and at risk for suicide if discharged. (1) Suicidal ideations: 03/24 -suicide checks for safety. -Encourage group attendance and participation. -Work on healthy coping skills and discharge safety plan. -Family meeting with held 03/24/2019. -Recommend abstinence from alcohol and substance abuse treatment, as substance abuse and intoxication are risk factors for completed suicide. Present on Admission?: Yes (2) Major depression, recurrent: 03/22 -The patient was admitted to the [facility] ([facility] mental health unit) on q15 min checks (behavioral with suicide precautions) for safety. The patient will participate in group, recreational, and milieu therapies and will be offered additional individual and family sessions as clinically appropriate. With anxious distress. Reviewed dosing range of Celexa and FDA warnings re: QTc prolongation at 40 mg dosing. Patient agrees to a retrial of 30 mg Celexa. 03/23 - Continue citalopram at 30mg daily, patient declining offer for further titration 03/24 -Family meeting with held today. Present on Admission?: Yes (3) EtOH dependence: 03/22 -The patient's AUDIT score suggests problematic drinking (Zone III WHO). Brief intervention was offered and accepted. Intervention was greater than 5 min in length and included assessing readiness to quit, advice on how to reduce or abstain from alcohol, and to set a specific goal for this hospitalization. rehabilitation worker will also assist in anticipating barriers to sobriety and in problem-solving for solutions to those problems while arranging for referral to appropriate treatment. The patient is in contemplation stage with regards to transtheoretical model of change. The patient is advised to eliminate alcohol consumption due to depressant effects and risk of interaction with prescription medications. The patient agreed to resume therapy and will be provided with recovery materials to continue to educate self on how to cope with their condition without drinking. He will be placed on AWSS protocol and loaded with Neurontin with prn Ativan available. 03/23 - Pt stating he would be agreeable to outpatient D&A counseling Substance use status: uncomplicated Qualified Code(s): F10.20 - Alcohol dependence, uncomplicated Present on Admission?: Yes (4) Anxiety: 03/24 -SSRI as above. Hydroxyzine as needed for anxiety. Work on healthy coping skills and behavioral techniques to manage anxiety. Present on Admission?: Yes (5) Arm paresthesia, left: 03/24 -appreciate hospitalist's recommendations; aspirin 81 mg daily started last night. As patient's neurological exam was nonfocal, they thought symptoms were most likely due to anxiety. Present on Admission?: Yes (6) Hyperlipidemia: Continue home dose of Crestor. Present on Admission?: Yes Risk Factors Assessment Male: Yes : Yes Do You Have Access To A Gun?: Yes (Son reportedly secured firearms) Health Problems: Yes Mental Health Diagnoses: Yes Substance Use Disorders: Yes Previous Attempt: No Family History of Suicide: No Previous Psychiatric Hospitalization: No Hopelessness: Yes Smoker: Yes Protective Factors Assessment : Yes Responsible for Young Children: No Employed: No Supportive Family: Yes Psychiatric History Identifying Data FRED HOGAN is a 58-year-old M who currently lives in [place] with his and son, has a history of depression and alcohol dependence, and was admitted on 03/23/19 22:41 on a 201 voluntary commitment for suicidality. He was initially admitted 03/22/2019, but was taken to the emergency room for assessment of stroke symptoms on 03/23/2019, so had to be discharged and then readmitted once he was determined to be medically stable to return to the behavioral health unit. Chief Complaint "Honestly, not very good". History of Present Illness Per initial HPI from Dr. Orta on 03/22/2019: Mr. Hogan went to the [facility] with his believing he'd have a mental health assessment. He did not expect to be admitted, overall he described chest discomfort and given his medical history he was referred to the ED for clearance. He was then referred to our unit for admission after admitting he had gone to the gun shop a few days ago with the intent of purchasing a gun to shoot himself. His son secured the hunting rifles/has the hoyt but remained concerned when he sent good bye sounding texts the night before. 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 He does note that his adjustment to intermediate has been difficult. He didn't particularly want to retire but was offered a one time only early intermediate deal. The year after intermediate he had prostate CA, the following year a subdural, and the following year another brain bleed. He states that May 2018-Oct he participated in therapy and was able to stop his excessive ETOH use but recently started drinking more regularly again, mainly whiskey which he knows is dangerous given his fall and seizure hx. The health incident in August was particularly traumatic as he was hunting with some friends and had to be resuscitated for 4 minutes and was ultimately transferred. He hasn't had as good energy, concentration, interest in things, particularly since started drinking again and says "I just can't do it anymore, I thought I could handle it and I couldn't". 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 He worries about his son who isn't sure where he want to attend grad school for biochem. He states that he hasn't felt as happy with his anxiety control in past year since benzodiazepine was discontinued but he understands why. He doesn't seem to recall if seizure hx related to other neuro issues vs withdrawal. Citalopram was increased to target depression and anxiety, and he was placed on the [facility] alcohol withdrawal protocol with gabapentin taper. On 03/23/2019, he reported paresthesias in his left upper and lower extremities and headache, and a code purple was called. He was seen by Dr. Rincon who recommended transfer to the emergency department for evaluation due to concerns for stroke. He was seen by Dr. Santos of the hospitalist service. He was found to be neur ologically intact with a nonfocal exam, chest x-ray showed mild cardiac enlargement, head CT and CTA of head and neck showed atherosclerotic disease, he was started on aspirin, and symptoms were thought to be due to anxiety. He was then transferred back to the behavioral health unit, and a hospitalist consult was placed. On my assessment today, the patient states that his mood is depressed and a nxious, he is feeling hopeless about the future, stating he has many things going for him "but I can't be happy." He states that although his mood was slightly better yesterday, it has now worsened, his thinking is very negative, with hopelessness and helplessness. He says that in the 4 years since his intermediate, "it has been one thing after another," and that he feels he is just waiting for his health to further deteriorate. He denies suicidal thoughts, but continues to feel overwhelmed and unsupported. He says his family meeting was "exhausting, I just felt to beat out." He says his family is "judgmental, what I have is a weakness, they just keep hammering on it." They want him to stop drinking, but he just wants to "slow down" and is not ready to commit to that. He endorses worthlessness, anger and frustration with himself, and says he is "just feeling sorry for myself." He denies side effects to medications. Past Psychiatric History Current Psychiatric Diagnosis: Depression/Anxiety Outpatient Services: PCP, Dr. Riojas, prescribes medications Do You Have Access To A Gun?: Yes (Son reportedly secured firearms) History of Previous Suicide Attempt: No Describe Attempts in the Past: none Allergies Allergy/AdvReac Type Severity Reaction Status Date / Time bee venom protein (honey bee) Allergy Severe ANAPHYLAXIS Verified 03/23/19 20:11 cat dander Allergy Intermediate Itchy/Watery Verified 03/23/19 20:11 Eyes, Itchy throat tamsulosin Allergy Intermediate Hives Verified 03/23/19 20:11 Home Medications Home Medications Medication Instructions Recorded Confirmed Type rosuvastatin [Crestor] 10 mg PO DAILY 09/13/18 03/23/19 History epinephrine [EpiPen] 0.3 mg IM DIRECTED PRN 03/21/19 03/23/19 History levetiracetam 500 mg PO BID 03/21/19 03/23/19 History pantoprazole 40 mg PO QAM 03/21/19 03/23/19 History citalopram 30 mg PO QAM #1 tab 03/23/19 03/23/19 Rx gabapentin 600 mg PO Q12H #1 tab 03/23/19 03/23/19 Rx gabapentin 600 mg PO Q24H #1 tab 03/23/19 03/23/19 Rx gabapentin 600 mg PO Q8H #1 tab 03/23/19 03/23/19 Rx lorazepam [Ativan] 1 mg PO .UD PRN 03/23/19 03/23/19 History ropinirole 0.5 mg PO DAILY@1900 #1 tab 03/23/19 03/23/19 Rx Family History Family History of: None Alcohol History Hx of Alcohol Use Over the Past 12 Months: Yes (2 large bottles of Eritrean Mist Weekly, drinks daily) AUDIT Total Score: 19 Drinks daily, 2 large bottles (750ml) of [place] Mist whiskey weekly Smoking Use Have You Smoked or Used Tobacco Products in the Last 30 Days: Yes tobacco type: cigars Smoking Status: Current some day smoker Substance History Hx of Prescription Med Misuse Over the Past 12 Months: No Hx of Over the Counter Med Misuse Over the Past 12 Months: No Hx of Inhalent Misuse Over the Past 12 Months: No Hx of Organic Substance Use Over the Past 12 Months: No Hx of Illegal Substances/Street Drug Use Over Past 12 Months: No Problems as a Result of Past Substance Use: None Identified Personal History Living Arrangements: Home Living Arrangements Comments: with and son in [place] Highest Grade Completed: College Employment Status: Retired Marital Status: Beliefs That Will Affect Care: None Current Legal Problems: No Hx Legal Problems: No Hx Traumatic Life Events: Yes (medical) Patient History Medical History Hypertension (Chronic) Hyperlipidemia (Chronic) Anxiety (Chronic) Diverticulosis (Chronic) Left arm weakness Prostate cancer (Resolved 07/30/16) "STAGING: Prostate, adenocarcinoma, triny 3 + 4, PSA 4.65, cT1c, group IIA Prostate gland size by TRUS - 25.1 TREATMENT: 1. Status post prostate seed implant as boost 11/06/2016 43 seeds were placed 8500 cGy 2. Status post completion of IMRT/IGRT completed 01/28/2017 received 4500 cGy" On 12/06/16 15:38 Tricia Solorio wrote "STAGING: Prostate, adenocarcinoma, triny 3 + 4, PSA 4.65, cT1c, group IIA Prostate gland size by TRUS - 25.1 TREATMENT: 1. 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 Casually dressed, adequate grooming and hygiene. Seated in no acute distress, with poor eye contact and no abnormal movements. Cooperative with the assessment. Speech is slightly delayed and slowed, monotone. Mood is "not very good." Affect is restricted to depressed and anxious and is congruent with mood. Thoughts are goal-directed, notable for thought distortions, worthlessness, hopelessness, guilt. Denies SI, but reports he attempted to buy a gun and shoot himself just prior to admission. Attention and language are grossly intact. No hallucinations or delusions. +cognitive distortions. Insight and judgment are impaired. Vital Signs (Past 24 Hours): Last Vital Signs Temp 36.8 C 03/24/19 08:22 Pulse 68 03/24/19 08:22 Resp 18 03/24/19 08:22 BP 154/96 H 03/24/19 08:22 Pulse Ox 96 03/23/19 23:40 Exam Statement: A physical exam was performed in the ER prior to admission to the unit by Dr. Lyn. I accept that physical as correct/medical clearance for the inpatient physical exam. Results & Data Laboratory Results Laboratory Results - last 24 hr 03/23/19 03/23/19 19:36 23:04 Folate > 24.00 Ethyl Alcohol mg/dL < 3.0 Current Inpatient Medications Current Inpatient Medications: Current Inpatient Medications Acetaminophen (Tylenol) 650 mg PO Q4H PRN PRN Reason: Headache or Minor Fever Stop: 04/22/19 22:40 Al Hydrox/Mg Hydrox/Simethicone (Maalox) 30 ml PO Q4H PRN PRN Reason: GI Upset Stop: 04/22/19 22:40 Aspirin (Ecotrin Ectab) 81 mg PO DAILY LESLEE Stop: 04/23/19 08:59 Last Admin: 03/24/19 08:28 Dose: 81 mg Documented by: Bismuth Subsalicylate (Kaopectate) 15 ml PO PRN PRN PRN Reason: Loose Stool Stop: 04/22/19 22:40 Citalopram Hydrobromide (Celexa) 30 mg PO QAM LESLEE Stop: 04/23/19 08:59 Last Admin: 03/24/19 08:25 Dose: 30 mg Documented by: Epinephrine HCl (Epipen) 0.3 mg IM UD PRN PRN Reason: Allergic Reaction Stop: 04/22/19 22:46 Gabapentin (Neurontin) 600 mg PO Q12H LESLEE Stop: 04/23/19 08:59 Last Admin: 03/24/19 08:29 Dose: 600 mg Documented by: Hydroxyzine HCl (Vistaril) 25 mg PO Q4H PRN PRN Reason: Anxiety Stop: 04/22/19 22:40 Hydroxyzine HCl (Vistaril) 50 mg PO HSZ PRN PRN Reason: Insomnia Stop: 04/22/19 22:40 Ioversol (Optiray 320 125ml) 119 ml IV ONCE PRN PRN Reason: Interaction Checking Stop: 03/27/19 19:19 Last Admin: 03/23/19 19:20 Dose: 119 ml Documented by: Levetiracetam (Keppra) 500 mg PO BID LESLEE Stop: 04/23/19 08:59 Last Admin: 03/24/19 08:29 Dose: 500 mg Documented by: Lorazepam (Ativan) 1 mg PO .UD PRN PRN Reason: Anxiety Stop: 04/22/19 22:46 Magnesium Hydroxide (Milk Of Magnesia) 30 ml PO DAILY PRN PRN Reason: Heartburn Stop: 04/22/19 22:40 Pantoprazole Sodium (Protonix) 40 mg PO QAM LESLEE Stop: 04/23/19 08:59 Last Admin: 03/24/19 08:29 Dose: 40 mg Documented by: Ropinirole HCl (Requip) 0.5 mg PO DAILY@1900 [facility] Stop: 04/23/19 18:59 Rosuvastatin Calcium (Crestor) 10 mg PO DAILY [facility] Stop: 04/23/19 08:59 Last Admin: 03/24/19 08:28 Dose: 10 mg Documented by: Sodium Chloride (Continental Nasal) 1 - 2 sprays NA PRN PRN PRN Reason: Nasal Dryness/Congestion Stop: 04/22/19 22:40 CPT Code CPT Code Initial Hospital Care: 77727
--- NOTE | 2019-03-24 11:56 | Hospitalist Progress Note ---
Date of Service March 24, 2019 Assessment & Plan (1) Arm paresthesia, left: Patient continues to be neurologically intact and symptoms completely resolved on their own last evening. He did NOT have a TIA, no need for brain MRI He had imaging to include CT head, CTA head and neck with atherosclerotic disease 50% stenosis in proximal right ICA and 60-70% stenosis in the proximal left ICA. Doubt that this is contributing to patient's symptoms. Symptoms most likely secondary to anxiety and/or side effect of medication such as gabapentin or hydroxyzine. No evidence of recurrent SDH -Recommend continuing Crestor -will DISCONTINUE ASA 81mg due to h/o spontaneous recurrence of SDH in 08/2018 (2) Paresthesia of left leg: As above, resolved (3) EtOH dependence: Patient with significant alcohol history. He reports drinking approximately 2 large bottles of whiskey weekly. Last drink was 03/21/19 at 17:00. Patient has had withdrawal in the past -Recommend AWSS for withdrawal treatment as needed -continue gabapentin taper and ativan prn -continue po thiamine, folate, and add MVI daily -did receive banana bag on admission (4) Suicidal ideations: Management as per Psychiatry (5) Hypertension: Blood pressure presently mildly elevated but could be from significant anxiety -Continue to monitor -If persistently >160/90, please let the Hospitalist service know and we can consider starting an antihypertensive (6) Hyperlipidemia: Chronic. Stable -Continue Crestor (7) History of subdural hematoma: First was traumatic in 2016. Second was smaller and spontaneous in 08/[address] [facility], resolved CT head here without bleeding -recommend no blood thinning agents (8) History of seizure: thought to be secondary to previous ICH plus EtOH withdrawal seizures -continue gabapentin protocol and taper -continue home Keppra (9) Anxiety: As above -Continue per Psychiatry, Celexa and Ativan (10) Carotid artery stenosis: Bilateral, moderate in nature, asymptomatic -continue statin -cannot take ASA due to h/o SDH x 2 -follow with Carotid Doppler in 1 year (11) Major depression, recurrent: Chronic. -Continue Celexa Dispo--> medically stable at this time, no further workup recommended Hospitalist Service will sign off at this time. Please feel free to reconsult us if new issues arise. Thank you. Subjective Feels better today, no further paresthesias on left side of body. Does have some muscle pain in LLE he thinks from being so tensed up for many hours last night. His headache from last night is completely resolved. No weakness, no trouble walking around today. Review of Systems Review of Systems: All systems reviewed & are unremarkable except as noted in HPI & below Physical Exam Constitutional: WD/WN, vitals as above Eyes: PERRL, conjunctivae normal, anicteric sclerae ENMT: external ear and nose normal, oropharynx normal Neck: trachea midline, no thyromegaly Respiratory: normal respiratory effort, lungs clear to auscultation Cardiovascular: RRR, no murmur, no edema Gastrointestinal (Abdomen): normal bowel sounds, soft, nontender, no hepatosplenomegaly Musculoskeletal: Extremities: extremities normal to inspection; no cyanosis and no clubbing Skin: no rashes, warm and dry Neurologic: patellar DTR's 2+ bilat, sensation intact and PERRL, EOMI, accommodation nl, no face palsy, no dysarthria CN's II-XI intact bilaterally, deep tendon reflexes 2+ bilaterally, moves all extremities and awake; no focal motor deficits Speech / Cognition: normal speech Motor/Sensory: no tremor Psychiatric: Orientation: alert and oriented x 3 Apperance: appropriately dressed Eye Contact: good eye contact Speech: no pressured speech Affect: + depressed affect Mood: + depressed mood Results & Data Vital Signs (Past 12 Hours) Vital Signs Temp Pulse Resp BP BP 03/24/19 08:22 36.8 C 68 18 154/96 H 03/24/19 06:58 66 148/90 H 03/24/19 06:56 36.7 C 73 18 154/93 H 03/24/19 01:24 36.9 C 88 18 136/84 Laboratory Results 03/23/19 Range/Units 23:04 Folate > 24.00 (>5.38) ng/ml (1) EtOH dependence Substance use status: uncomplicated Qualified Code(s): F10.20 - Alcohol dependence, uncomplicated
[2019-03-24] MEDS: FOLIC ACID 1 MG TAB PO SCH (13:06)
[2019-03-24] MEDS: MULTIVITAMIN TAB PO SCH (13:07)
[2019-03-24] MEDS: THIAMINE HCL 100 MG TAB PO SCH (13:07)
[2019-03-24] MEDS: ROPINIROLE HCL 0.25 MG TABLET PO SCH (18:55)
[2019-03-25] MEDS: GABAPENTIN 600 MG TAB PO SCH ×2 (09:04→20:56)
[2019-03-25] MEDS: MULTIVITAMIN TAB PO SCH (09:04)
[2019-03-25] MEDS: FOLIC ACID 1 MG TAB PO SCH (09:04)
[2019-03-25] MEDS: CITALOPRAM 20 MG TAB PO SCH (09:04)
[2019-03-25] MEDS: levETIRAcetam 500 MG TAB PO SCH ×2 (09:04→20:56)
[2019-03-25] MEDS: ROSUVASTATIN CALCIUM 10 MG TAB PO SCH (09:04)
[2019-03-25] MEDS: PANTOprazole 40 MG TAB PO SCH (09:05)
[2019-03-25] MEDS: THIAMINE HCL 100 MG TAB PO SCH (09:05)
--- NOTE | 2019-03-25 12:37 | Psychiatric Progress Note ---
Date of Service March 25, 2019 Impression / Recommendations Impression Patient displays severe depression and hopelessness today. He is reporting that he is "given up" and endorses ongoing suicidal thoughts and the belief that he has been "abandoned" by his family. Patient states that he was actively attempting to "will myself to " during our encounter today. He is angry that he has been readmitted, believing he only required outpatient therapy and that he has been tricked into this admission. Patient continues to be upset as he feels his family is frustrated with him and his alcoholism. He endorses ongoing derogatory thoughts about himself, guilt, and blames himself or struggling with mental health issues. He remains severely depressed, anxious, and at risk for suicide if discharged. (1) Suicidal ideations: 03/24 -suicide checks for safety. -Encourage group attendance and participation. -Work on healthy coping skills and discharge safety plan. -Family meeting with held 03/24/2019. -Recommend abstinence from alcohol and substance abuse treatment, as substance abuse and intoxication are risk factors for completed suicide. 03/25 - SI ongoing presently - reporting he has "given up" and desires to "will himself to " - Admitting to ongoing hopelessness (2) Major depression, recurrent: 03/22 -The patient was admitted to the [facility] ([facility] mental health unit) on q15 min checks (behavioral with suicide precautions) for safety. The patient will participate in group, recreational, and milieu therapies and will be offered additional individual and family sessions as clinically appropriate. With anxious distress. Reviewed dosing range of Celexa and FDA warnings re: QTc prolongation at 40 mg dosing. Patient agrees to a retrial of 30 mg Celexa. 03/23 - Continue citalopram at 30mg daily, patient declining offer for further titration 03/24 -Family meeting with held today. 03/25 - Continue citalopram 30mg - consider need for further titration with repeat EKG - Unwilling to engage in constructive conversation regarding medication adjustments today - Family meeting with daughter held today (3) EtOH dependence: 03/22 -The patient's AUDIT score suggests problematic drinking (Zone III WHO). Brief intervention was offered and accepted. Intervention was greater than 5 min in length and included assessing readiness to quit, advice on how to reduce or abstain from alcohol, and to set a specific goal for this hospitalization. mold worker will also assist in anticipating barriers to sobriety and in problem-solving for solutions to those problems while arranging for referral to appropriate treatment. The patient is in contemplation stage with regards to transtheoretical model of change. The patient is advised to eliminate alcohol consumption due to depressant effects and risk of interaction with prescription medications. The patient agreed to resume therapy and will be provided with recovery materials to continue to educate self on how to cope with their condition without drinking. He will be placed on AWSS protocol and loaded with Neurontin with prn Ativan elieser ilable. 03/23 - Pt stating he would be agreeable to outpatient D&A counseling (4) Anxiety: 03/24 -SSRI as above. Hydroxyzine as needed for anxiety. Work on healthy coping skills and behavioral techniques to manage anxiety. (5) Arm paresthesia, left: 03/24 -appreciate hospitalist's recommendations; aspirin 81 mg daily started last night. As patient's neurological exam was nonfocal, they thought symptoms were most likely due to anxiety. 03/25 - ASA 81mg discontinued per hospitalist recommendation due to spontaneous recurrence of subdural hematoma in 08/2018 (6) Hyperlipidemia: Continue home dose of Crestor. Risk Factors Assessment Male: Yes : Yes Do You Have Access To A Gun?: Yes (Son reportedly secured firearms) Health Problems: Yes Mental Health Diagnoses: Yes Substance Use Disorders: Yes Previous Attempt: No Family History of Suicide: No Previous Psychiatric Hospitalization: No Hopelessness: Yes Smoker: Yes Protective Factors Assessment : Yes Responsible for Young Children: No Employed: No Supportive Family: Yes Interval History Identifying Information FRED HOGAN is a 58-year-old M who currently lives in [place] with his and son, has a history of depression and alcohol dependence, and was admitted on 03/23/19 22:41 on a 201 voluntary commitment for suicidality. He was initially admitted 03/22/2019, but was taken to the emergency room for assessment of stroke symptoms on 03/23/2019, and readmitted for continuation of inpatient psychiatric treatment. Chief Complaint "I don't know. I just give up." Review of Systems Notes Constitutional: denied Cardiovascular: denied Respiratory: denied Gastrointestinal: denied Neurological: denied Psychiatric: denies symptoms other than stated above Total of at least 10 systems reviewed, pertinent positives as above and in HPI. Sleep Information Total Hours of Sleep: 8 Sleep Comments: pt given vistaril per rn. pt n q-15 minute checks Meal Information Percent Meal Consumed - Breakfast: 100 Percent Meal Consumed - Lunch: 100 Percent Meal Consumed - Dinner: 100 Subjective Subjective Patient was seen & assessed and interval progress reviewed with Treatment Team. Staff reports that the patient was appearing severely depressed during groups yesterday. He did not verbalize suicidality, but there is currently no active discharge plan. Patient is scheduled for a meeting with his daughter this morning. Patient was seen today to assess progress since admission. He states that he is not doing well, and asks this provider "what is the point?" This provider states that his meeting with his daughter "started out fine", and then the patient states that he feels he has been abandoned by his family. He believes his family no longer wants anything to do with him, and that they have tricked him into being here. Patient states "I only came to get an outpatient therapist, I was not even supposed to be here." Patient is seen while initially laying in bed, inquiring if this provider has "ever willed yourself to ? That is what I am doing, I am willing myself to . May be if I think hard enough about it my heart will just stop and I will be ." Patient states that he has "given up." As the conversation continued, the patient became more frustrated - beginning to pace the room, then leaving the room to pace up and down the hallway. This provider verbalized her intention to continue to offer the patient support, and provided encouragement based off of the progress he had made prior to his emergency discharge. Patient states "if I was that good a couple days ago why did not you discharge me?" Explanation was provided to patient regarding need for consistency of mood and a clear discharge plan in order to ensure safety in the outpatient setting. Patient reached a point where he would no longer engage in constructive conversation, and requested to be given space. He did not verbalize any other specific needs or concerns at the time of this encounter. Physical Exam Psychiatric Orientation: alert, oriented x 3 and + guarded; + uncooperative Apperance: appropriately dressed (In T-shirt and scrub pants), appropriately groomed and appeared stated age Eye Contact: + poor eye contact (Avoiding eye contact with this provider) Motor Behavior: steady gait and station and + psychomotor agitation (Pacing down hallway and across room, appearing restless) Speech: + loud speech (Irritable tone) Affect: + depressed affect, + anxious affect and + irritable affect Mood: + angry mood ("I am fine, I do not need to be here" and "I am just giving up then") Thought Process: clear/coherent thought process Thought Content: + cognitive distortions (Believing his family is abandoning him, distortions related to the severity of his alcohol abuse), + hopelessness, + worthlessness, + loneliness and + guilt Suicidal Thoughts: + reports suicidal thoughts, + reports suicidal plan (States he is actively "willing myself to ") and + reports suicidal intent Homicidal Thoughts: denies homicidal thoughts Hallucinations: no auditory hallucinations and no visual hallucinations Cognition: attention grossly intact and language grossly intact Estimated Intelligence: consistent with education level Insight: + impaired insight Judgement: + impaired judgement Vital Signs (Past 24 Hours) Last Vital Signs Temp 37.1 C 03/25/19 09:00 Pulse 66 03/25/19 09:00 Resp 18 03/25/19 09:00 BP 135/87 03/25/19 09:00 Pulse Ox 96 03/23/19 23:40 Results & Data Current Inpatient Medications Current Inpatient Medications: Current Inpatient Medications Acetaminophen (Tylenol) 650 mg PO Q4H PRN PRN Reason: Headache or Minor Fever Stop: 04/22/19 22:40 Al Hydrox/Mg Hydrox/Simethicone (Maalox) 30 ml PO Q4H PRN PRN Reason: GI Upset Stop: 04/22/19 22:40 Bismuth Subsalicylate (Kaopectate) 15 ml PO PRN PRN PRN Reason: Loose Stool Stop: 04/22/19 22:40 Citalopram [facility]brom[facility] ([facility]lexa) [facility] [place] Stop: 04/23/19 08:59 Last Admin: 03/25/19 09:04 Dose: 30 mg Documented by: Epinephrine HCl (Epipen) 0.3 mg IM UD PRN PRN Reason: Allergic Reaction Stop: 04/22/19 22:46 Folic Acid (Folvite) 1 mg PO QAM [facility] Stop: 04/23/19 11:59 Last Admin: 03/25/19 09:04 Dose: 1 mg Documented by: Gabapentin (Neurontin) 600 mg PO Q12H [facility] Stop: 04/23/19 08:59 Last Admin: 03/25/19 09:04 Dose: 600 mg Documented by: Hydroxyzine HCl (Vistaril) 25 mg PO Q4H PRN PRN Reason: Anxiety Stop: 04/22/19 22:40 Last Admin: 03/24/19 13:10 Dose: 25 mg Documented by: Hydroxyzine HCl (Vistaril) 50 mg PO HSZ PRN PRN Reason: Insomnia Stop: 04/22/19 22:40 Last Admin: 03/25/19 01:08 Dose: 50 mg Documented by: Ioversol (Optiray 320 125ml) 119 ml IV ONCE PRN PRN Reason: Interaction Checking Stop: 03/27/19 19:19 Last Admin: 03/23/19 19:20 Dose: 119 ml Documented by: Levetiracetam (Keppra) 500 mg PO BID [facility] Stop: 04/23/19 08:59 Last Admin: 03/25/19 09:04 Dose: 500 mg Documented by: Lorazepam (Ativan) 1 mg PO .UD PRN PRN Reason: Anxiety Stop: 04/22/19 22:46 Magnesium Hydroxide (Milk Of Magnesia) 30 ml PO DAILY PRN PRN Reason: Heartburn Stop: 04/22/19 22:40 Multivitamins (Multivitamin Tab) 1 tab PO QAM [facility] Stop: 04/23/19 11:59 Last Admin: 03/25/19 09:04 Dose: 1 tab Documented by: Pantoprazole Sodium (Protonix) 40 mg PO QAM [facility] Stop: 04/23/19 08:59 Last Admin: 03/25/19 09:05 Dose: 40 mg Documented by: Ropinirole HCl (Requip) 0.5 mg PO DAILY@1900 [facility] Stop: 04/23/19 18:59 Last Admin: 03/24/19 18:55 Dose: 0.5 mg Documented by: Rosuvastatin Calcium (Crestor) 10 mg PO DAILY [facility] Stop: 04/23/19 08:59 Last Admin: 03/25/19 09:04 Dose: 10 mg Documented by: Sodium Chloride ([place] Nasal) 1 - 2 sprays NA PRN PRN PRN Reason: Nasal Dryness/Congestion Stop: 04/22/19 22:40 Thiamine HCl (Vitamin B-1) 100 mg PO QAM [facility] Stop: 04/23/19 11:59 Last Admin: 03/25/19 09:05 Dose: 100 mg Documented by: Post Discharge Appointments Therapist Name of Therapist: none Railroad Wheels And Axle Inspector Name of Railroad Wheels And Axle Inspector: none CPT Code CPT Code 30456 (1) EtOH dependence Substance use status: uncomplicated Qualified Code(s): F10.20 - Alcohol dep endence, uncomplicated
[2019-03-25] MEDS: ROPINIROLE HCL 0.25 MG TABLET PO SCH (19:07)
[2019-03-26] MEDS: ROSUVASTATIN CALCIUM 10 MG TAB PO SCH (08:27)
[2019-03-26] MEDS: MULTIVITAMIN TAB PO SCH (08:27)
[2019-03-26] MEDS: levETIRAcetam 500 MG TAB PO SCH ×2 (08:27→20:54)
[2019-03-26] MEDS: GABAPENTIN 600 MG TAB PO SCH ×2 (08:27→20:54)
[2019-03-26] MEDS: CITALOPRAM 20 MG TAB PO SCH (08:27)
[2019-03-26] MEDS: FOLIC ACID 1 MG TAB PO SCH (08:27)
[2019-03-26] MEDS: PANTOprazole 40 MG TAB PO SCH (08:27)
[2019-03-26] MEDS: THIAMINE HCL 100 MG TAB PO SCH (08:27)
--- NOTE | 2019-03-26 11:30 | Psychiatric Progress Note ---
Date of Service March 26, 2019 Impression / Recommendations Impression Patient's mood is somewhat improved, he is now denying suicidal ideation. He continues to appear depressed and is not reporting a significant increase in hopefulness during conversations. Patient is interested in discharge, as he feels he needs to return to his outpatient stressors in order to adequately address them. Reviewed with patient need to have it clear discharge plan, and suggested patient gather a general idea of what the next few days after discharge would look like. Patient continues to minimize his symptoms and his alcohol use, refusing inpatient drug and alcohol rehabilitation. He is consider ing in alcoholism support group for professionals, but is not interested in AA meetings. Patient continues to be at high risk of harm to self if discharged prematurely, and has shown only limited improvement in mood since admission. A clear aftercare and safety plan will need to be determined prior to considering the patient's readiness for discharge. (1) Suicidal ideations: 03/24 -suicide checks for safety. -Encourage group attendance and participation. -Work on healthy coping skills and discharge safety plan. -Family meeting with held 03/24/2019. -Recommend abstinence from alcohol and substance abuse treatment, as substance abuse and intoxication are risk factors for completed suicide. 03/25 - SI ongoing presently - reporting he has "given up" and desires to "will himself to " - Admitting to ongoing hopelessness 03/26 - Denying SI today, but is still very high risk - No clear discharge or aftercare plan presently (2) Major depression, recurrent: 03/22 -The patient was admitted to the [facility] ([facility] health unit) on q15 min checks (behavioral with suicide precautions) for safety. The patient will participate in group, recreational, and milieu therapies and will be offered additional individual and family sessions as clinically appropriate. With anxious distress. Reviewed dosing range of Celexa and FDA warnings re: QTc prolongation at 40 mg dosing. Patient agrees to a retrial of 30 mg Celexa. 03/23 - Continue citalopram at 30mg daily, patient declining offer for further titration 03/24 -Family meeting with held today. 03/25 - Continue citalopram 30mg - consider need for further titration with repeat EKG - Unwilling to engage in constructive conversation regarding medication adjustments today - Family meeting with daughter held today 03/26 - Continue citalopram at 30mg daily; further titration was offered and encouraged to target ongoing depressive and anxiety symptoms - patient declined - Encourage patient's active participation in development of concrete discharge plans (3) EtOH dependence: 03/22 -The patient's AUDIT score suggests problematic drinking (Zone III WHO). Brief intervention was offered and accepted. Intervention was greater than 5 min in length and included assessing readiness to quit, advice on how to reduce or abstain from alcohol, and to set a specific goal for this hospitalization. antisqueak worker will also assist in anticipating barriers to sobriety and in problem-solving for solutions to those problems while arranging for referral to appropriate treatment. The patient is in contemplation stage with regards to transtheoretical model of change. The patient is advised to eliminate alcohol consumption due to depressant effects and risk of interaction with prescription medications. The patient agreed to resume therapy and will be provided with recovery materials to continue to educate self on how to cope with their condition without drinking. He will be placed on AWSS protocol and loaded with Neurontin with prn Ativan available. 03/23 - Pt stating he would be agreeable to outpatient D&A counseling 03/26 - Agreeable with therapy referral, previously seen at [facility] - Refusing recommendations for inpatient D&A rehabilitation - AWSS discontinued, as patient has not been scoring to receive prn medications in over 24hrs (4) Anxiety: 03/24 -SSRI as above. Hydroxyzine as needed for anxiety. Work on healthy coping skills and behavioral techniques to manage anxiety. (5) Arm paresthesia, left: 03/24 -appreciate hospitalist's recommendations; aspirin 81 mg daily started last night. As patient's neurological exam was nonfocal, they thought symptoms were most likely due to anxiety. 03/25 - ASA 81mg discontinued per hospitalist recommendation due to spontaneous recurrence of subdural hematoma in 08/2018 - No further physical complaints since readmission (6) Hyperlipidemia: Continue home dose of Crestor. Risk Factors Assessment Male: Yes : Yes Do You Have Access To A Gun?: Yes (Son reportedly secured firearms) Health Problems: Yes Mental Health Diagnoses: Yes Substance Use Disorders: Yes Previous Attempt: No Family History of Suicide: No Previous Psychiatric Hospitalization: No Hopelessness: Yes Smoker: Yes Protective Factors Assessment : Yes Responsible for Young Children: No Employed: No Supportive Family: Yes Interval History Identifying Information FRED HOGAN is a 58-year-old M who currently lives in [place] with his and son, has a history of depression and alcohol dependence, and was admitted on 03/23/19 22:41 on a 201 voluntary commitment for suicidality. He was initially admitted 03/22/2019, but was taken to the emergency room for assessment of stroke symptoms on 03/23/2019, and readmitted for continuation of inpatient psychiatric treatment. Chief Complaint "I'm feeling a little more even keel today." Review of Systems Notes Constitutional: denied Cardiovascular: denied Respiratory: denied Gastrointestinal: denied Neurological: denied Psychiatric: denies symptoms other than stated above Total of at least 10 systems reviewed, pertinent positives as above and in HPI. Sleep Information Total Hours of Sleep: 7.5 Sleep Comments: pt given vistaril per rn. pt n q-15 minute checks Meal Information Percent Meal Consumed - Breakfast: 100 Percent Meal Consumed - Lunch: 100 Percent Meal Consumed - Dinner: 100 Nutrition Comment: per meal record Subjective Subjective Patient was seen & assessed and interval progress reviewed with Nursing. Staff reports the patient demonstrated an improvement in mood last evening. He had rated his mood as 6/10 and was feeling "okay." Patient is noncommittal at this time in regard to aftercare to address his alcohol dependence. Patient was seen today to assess progress since admission. He begins our conversation by apologizing for his behavior during our encounter yesterday. Patient admits that he was frustrated by his readmission, and was "depressed and upset, I was not expecting to be here." Patient continues to be focused on the estimated length of stay provided Saturday, feeling he has made more progress than the length of stay suggests. We reviewed options for aftercare, including drug and alcohol counseling, AA meetings, and our recommendation for inpatient rehab. Patient is willing for outpatient therapy, but is not interested in these other recommendations. Patient denies suicidal thoughts today, but does not report any significantly different symptoms related to mood. Patient continues to be focused on discharge, and was encouraged to complete his safety plan and activ ashok work with social work to set up therapy referrals. He denies any other specific needs or concerns at this time. Physical Exam Psychiatric Orientation: alert, oriented x 3 and cooperative (Superficially) Apperance: appropriately dressed and appropriately groomed Eye Contact: good eye contact Motor Behavior: steady gait and station and no abnormal motor movements Speech: normal rate/rhythm/volume of speech (Mildly irritable tone at times) Affect: + depressed affect, + anxious affect and + irritable affect Mood: no depressed mood "Feeling more even keel" and "depressed and upset, I was not expecting to be back here" - despite these reports, patient continues to be focused on discharge Thought Process: goal directed thought process and clear/coherent thought process Thought Content: + preoccupation (With discharge), + cognitive distortions (Related to the severity of his alcohol dependence, minimizing depressive symptoms), reality based without delusions and + loneliness Suicidal Thoughts: denies suicidal thoughts and denies suicidal plan Homicidal Thoughts: denies homicidal thoughts Hallucinations: no auditory hallucinations and no visual hallucinations Cognition: attention grossly intact and language grossly intact Estimated Intelligence: consistent with education level Insight: + fair insight Judgement: + fair judgement Vital Signs (Past 24 Hours) Last Vital Signs Temp 36.6 C 03/26/19 06:00 Pulse 63 03/26/19 06:00 Resp 20 03/26/19 06:00 BP 136/80 03/26/19 06:00 Pulse Ox 96 03/23/19 23:40 Results & Data Current Inpatient Medications Current Inpatient Medications: Current Inpatient Medications Acetaminophen (Tylenol) 650 mg PO Q4H PRN PRN Reason: Headache or Minor Fever Stop: 04/22/19 22:40 Al Hydrox/Mg Hydrox/Simethicone (Maalox) 30 ml PO Q4H PRN PRN Reason: GI Upset Stop: 04/22/19 22:40 Last Admin: 03/26/19 01:24 Dose: 30 ml Documented by: Bismuth Subsalicylate (Kaopectate) 15 ml PO PRN PRN PRN Reason: Loose Stool Stop: 04/22/19 22:40 Citalopram Hydrobromide (Celexa) 30 mg PO QAM [facility] Stop: 04/23/19 08:59 Last Admin: 03/26/19 08:27 Dose: 30 mg Documented by: Epinephrine HCl (Epipen) 0.3 mg IM UD PRN PRN Reason: Allergic Reaction Stop: 04/22/19 22:46 Folic Acid (Folvite) 1 mg PO QAM [facility] Stop: 04/23/19 11:59 Last Admin: 03/26/19 08:27 Dose: 1 mg Documented by: Gabapentin (Neurontin) 600 mg PO Q12H [facility] Stop: 04/23/19 08:59 Last Admin: 03/26/19 08:27 Dose: 600 mg Documented by: Hydroxyzine HCl (Vistaril) 25 mg PO Q4H PRN PRN Reason: Anxiety Stop: 04/22/19 22:40 Last Admin: 03/25/19 12:26 Dose: 25 mg Documented by: Hydroxyzine HCl (Vistaril) 50 mg PO HSZ PRN PRN Reason: Insomnia Stop: 04/22/19 22:40 Last Admin: 03/25/19 01:08 Dose: 50 mg Documented by: Ioversol (Optiray 320 125ml) 119 ml IV ONCE PRN PRN Reason: Interaction Checking Stop: 03/27/19 19:19 Last Admin: 03/23/19 19:20 Dose: 119 ml Documented by: Levetiracetam (Keppra) 500 mg PO BID [facility] Stop: 04/23/19 08:59 Last Admin: 03/26/19 08:27 Dose: 500 mg Documented by: Lorazepam (Ativan) 1 mg PO .UD PRN PRN Reason: Anxiety Stop: 04/22/19 22:46 Magnesium Hydroxide (Milk Of Magnesia) 30 ml PO DAILY PRN PRN Reason: Heartburn Stop: 04/22/19 22:40 Multivitamins (Multivitamin Tab) 1 tab PO QAM [facility] Stop: 04/23/19 11:59 Last Admin: 03/26/19 08:27 Dose: 1 tab Documented by: Pantoprazole Sodium (Protonix) 40 mg PO QAM [facility] Stop: 04/23/19 08:59 Last Admin: 03/26/19 08:27 Dose: 40 mg Documented by: Ropinirole HCl (Requip) 0.5 mg PO DAILY@1900 [facility] Stop: 04/23/19 18:59 Last Admin: 03/25/19 19:07 Dose: 0.5 mg Documented by: Rosuvastatin Calcium (Crestor) 10 mg PO DAILY [facility] Stop: 04/23/19 08:59 Last Admin: 03/26/19 08:27 Dose: 10 mg Documented by: Sodium Chloride ([place] Nasal) 1 - 2 sprays NA PRN PRN PRN Reason: Nasal Dryness/Congestion Stop: 04/22/19 22:40 Thiamine HCl (Vitamin B-1) 100 mg PO QAM [facility] Stop: 04/23/19 11:59 Last Admin: 03/26/19 08:27 Dose: 100 mg Documented by: Post Discharge Appointments Therapist Name of Therapist: none Isolation Washer Name of Isolation Washer: none CPT Code CPT Code 94256 (1) EtOH dependence Substance use status: uncomplicated Qualified Code(s): F10.20 - Alcohol dependence, uncomplicated
[2019-03-26] MEDS: ROPINIROLE HCL 0.25 MG TABLET PO SCH (20:03)
[2019-03-27 07:06] VITALS: TEMP 97.7
[2019-03-27] MEDS: CITALOPRAM 20 MG TAB PO SCH (08:15)
[2019-03-27] MEDS: PANTOprazole 40 MG TAB PO SCH (08:16)
[2019-03-27] MEDS: FOLIC ACID 1 MG TAB PO SCH (08:16)
[2019-03-27] MEDS: GABAPENTIN 600 MG TAB PO SCH (08:16)
[2019-03-27] MEDS: ROSUVASTATIN CALCIUM 10 MG TAB PO SCH (08:16)
[2019-03-27] MEDS: levETIRAcetam 500 MG TAB PO SCH (08:16)
[2019-03-27] MEDS: MULTIVITAMIN TAB PO SCH (08:16)
[2019-03-27] MEDS: THIAMINE HCL 100 MG TAB PO SCH (08:16)
--- NOTE | 2019-03-27 09:34 | Discharge Summary ---
Date of Service March 27, 2019 History of Present Illness Per initial HPI from Dr. Orta on 03/22/2019: Mr. Hammonds went to the [facility] with his believing he'd have a mental health assessment. He did not expect to be admitted, overall he described chest discomfort and given his medical history he was referred to the ED for clearance. He was then referred to our unit for admission after admitting he had gone to the gun shop a few days ago with the intent of purchasing a gun to shoot himself. His son secured the [employer] rifles/has the hoyt but remained concerned when he sent génesis byisai sounding texts the night before. 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 He does note that his adjustment to assisted has been difficult. He didn't particularly want to retire but was offered a one time only early assisted deal. The year after assisted he had prostate CA, the following year a subdural, and the following year another brain bleed. He states that May 2018-Oct he participated in therapy and was able to stop his excessive ETOH use but recently started drinking more regularly again, mainly whiskey which he knows is dangerous given his fall and seizure hx. The health incident in August was particularly traumatic as he was hunting with some friends and had to be resuscitated for 4 minutes and was ultimately transferred. He hasn't had as good energy, concentration, interest in things, particularly since started drinking again and says "I just can't do it anymore, I thought I could handle it and I couldn't". 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 He worries about his son who isn't sure where he want to attend grad school for biochem. He states that he hasn't felt as happy with his anxiety control in past year since benzodiazepine was discontinued but he understands why. He doesn't seem to recall if seizure hx related to other neuro issues vs withdrawal. Citalopram was increased to target depression and anxiety, and he was placed on the [facility] alcohol withdrawal protocol with gabapentin taper. On 03/23/2019, he reported paresthesias in his left upper and lower extremities and headache, and a code purple was called. He was seen by Dr. Rincon who recommended transfer to the emergency department for evaluation due to concerns for stroke. He was seen by Dr. Santos of the hospitalist service. He was found to be neurologically intact with a nonfocal exam, chest x-ray showed mild cardiac enlargement, head CT and CTA of head and neck showed atherosclerotic disease, he was started on aspirin, and symptoms were thought to be due to anxiety. He was then transferred back to the behavioral health unit, and a hospitalist consult was placed. On my assessment today, the patient states that his mood is depressed and anxious, he is feeling hopeless about the future, stating he has many things going for him "but I can't be happy." He states that although his mood was slightly better yesterday, it has now worsened, his thinking is very negative, with hopelessness and helplessness. He says that in the 4 years since his assisted, "it has been one thing after another," and that he feels he is just waiting for his health to further deteriorate. He denies suicidal thoughts, but continues to feel overwhelmed and unsupported. He says his family meeting was "exhausting, I just felt to beat out." He says his family is "judgmental, what I have is a weakness, they just keep hammering on it." They want him to stop drinking, but he just wants to "slow down" and is not ready to commit to that. He endorses worthlessness, anger and frustration with himself, and says he is "just feeling sorry for myself." He denies side effects to medications. Physical Exam Psychiatric Orientation: oriented x 3 Apperance: appropriately dressed and appropriately groomed Eye Contact: good eye contact Motor Behavior: steady gait and station Speech: normal rate/rhythm/volume of speech Affect: euthymic affect "Good mood. Optimistic." Thought Process: goal directed thought process, linear/logical thought process and clear/coherent thought process Thought Content: reality based without delusions Suicidal Thoughts: denies suicidal thoughts Homicidal Thoughts: denies homicidal thoughts Hallucinations: no auditory hallucinations Cognition: recent memory grossly intact, remote memory grossly intact, attention grossly intact and language grossly intact Estimated Intelligence: + above average estimated intelligence Insight: + fair insight Judgement: good judgement Vital Signs (Past 24 Hours) Last Vital Signs Temp 36.5 C 03/27/19 07:04 Pulse 60 03/27/19 07:05 Resp 16 03/27/19 07:04 BP 110/72 03/27/19 07:05 Pulse Ox 96 03/23/19 23:40 Principal Diagnosis Major Depression Psychiatric Data During the course of hospitalization the patient was offered various modalities of psychiatric treatment and education. These included individual, group, and activity therapies. Also, the patient was treated with the antidepressant medication citalopram 30 mg daily. As a precaution, he was initially placed on an alcohol detoxification protocol, but did not exhibit any symptoms of alcohol withdrawal. Patient was open and honest about his alcohol misuse. He reports that he had achieved abstinence for approximately 4 months, subsequent to stopping in August 2018. Following a relapse, the patient indicates that he was drinking at least 2 L of distilled spirits every week, typically to the point of intoxication. 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 The patient devoted most of the stay to working on developing a safety plan for community reentry. By the time of discharge, the patient had completed the safety plan, and was quite co nversant with it. He was able to describe his plans to independently manage stress and anxiety, as well as temptation to consume alcohol, as well as methods of soliciting and obtaining assistance from others. The patient's mood brightened fairly progressively during the stay, with 1 setback related to a disappointment. He clearly enjoys the support of his family, expresses a strong commitment to sobriety, and is reporting the complete resolution of all suicidal thoughts. He describes himself as being "embarrassed" about his preadmission plan to commit suicide, but says that he is not sure that even if he had purchased a gun he would have followed through on the plan. He acknowledges that there are firearms in his house, but he reports that these are in a locked cabinet and he does not have access to it because the patient's son holds the hoyt. Arrangements were made for outpatient psychiatric treatment, and the treatment team is in agreement that at this point the patient is now safely able to be discharged to the community for continued treatment. Day of Discharge Assessment On the day of discharge the patient was found to be cooperative, appropriately dressed and appropriately groomed. He describes his mood as "good," although he notes that he continues to periodically experience some feelings of anxiety. The patient's speech is delivered at a normal rate and volume is spontaneous. The patient's thought processes demonstrate tight associations, although he at times is somewhat overinclusive. There is no evidence of any delusional material and the patient's thought content. There is no evidence of any perceptual disturbances. His judgment is assessed as being good. There is some concern regarding insight and the facility with which she is going to be able to sustain recovery from alcohol, and he is resisting suggestions such as participation in self-help groups, such as AA. He also said that he would not be interested in finding out information about pharmacologic ways of reducing the risk of alcohol relapse. The context, however, is the fact the patient did fairly recently achieve 4 months of sobriety independently, and he does have the active support of his family. He commits to going to AA and to talking with his healthcare professional should the temptation to use alcohol recur. However, he says that he is not having any cravings and feels committed to sobriety. The patient reports no suicidal thoughts and is future oriented. For example, he considers various jobs and volunteer work which he might be able to pursue over the summer, and then in the next academic year. Transition of Care Transition Of Care Record: was reviewed with the patient Advance Directives Advance Directives Information Provided: Yes Advance Directives: Yes Mental Health Advance Directive: No Advance Directives on File: Yes ( was to bring) Living Will: Yes Power of Community Arts Centre Manager: Yes ("my knows") Advance Directives Reason:: Declines as Mental Health Visit. Risk Factors Assessment Male: Yes : Yes Do You Have Access To A Gun?: No (Son reportedly secured firearms.) Health Problems: Yes Mental Health Diagnoses: Yes Substance Use Disorders: Yes Previous Attempt: No Family History of Suicide: No Previous Psychiatric Hospitalization: No Hopelessness: Yes Smoker: Yes Protective Factors Assessment Temple Beliefs: Yes : Yes Responsible for Young Children: No Employed: No Stable Relationships: Yes Supportive Family: Yes Good Rapport with Provider: Yes Tobacco Cessation at Discharge Tobacco Cessation Medication Prescribed at Discharge: Not Applicable/Non-Smoker Total Time Total Time Spent: Greater Than 30 Minutes Total Time Includes: Examination of the patient, Discharge Planning, Medication Reconciliation and Communication with other providers Discharge Data Consultations 03/23/19 20:39 ED Decision to Admit Stat 03/23/19 22:55 Consult Hospitalist Stat Lab Results 03/23/19 03/23/19 19:36 23:04 Folate > 24.00 Ethyl Alcohol mg/dL < 3.0 Hospital Course (1) Suicidal ideations: 03/24 -suicide checks for safety. -Encourage group attendance and participation. -Work on healthy coping skills and discharge safety plan. -Family meeting with held 03/24/2019. -Recommend abstinence from alcohol and substance abuse treatment, as substance abuse and intoxication are risk factors for completed suicide. 03/25 - SI ongoing presently - reporting he has "given up" and desires to "will himself to " - Admitting to ongoing hopelessness 03/26 - Denying SI today, but is still very high risk - No clear discharge or aftercare plan presently (2) Major depression, recurrent: 03/22 -The patient was admitted to the [facility] ([facility] mental [facility] unit) on q15 min checks (behavioral with suicide precautions) for safety. The patient will participate in group, recreational, and milieu therapies and will be offered additional individual and family sessions as clinically appropriate. With anxious distress. Reviewed dosing range of Celexa and FDA warnings re: QTc prolongation at 40 mg dosing. Patient agrees to a retrial of 30 mg Celexa. 03/23 - Continue citalopram at 30mg daily, patient declining offer for further titration 03/24 -Family meeting with held today. 03/25 - Continue citalopram 30mg - consider need for further titration with repeat EKG - Unwilling to engage in constructive conversation regarding medication adjustments today - Family meeting with daughter held today 03/26 - Continue citalopram at 30mg daily; further titration was offered and encouraged to target ongoing depressive and anxiety symptoms - patient declined - Encourage patient's active participation in development of concrete discharge plans 03/27 -Continue citalopram 30 mg daily. -Mood has improved considerably. The patient is no longer experiencing any suicidal thoughts and is jigar for safety. He is also future oriented, and has developed a specific safety plan with which he is conversant. Discharge planning has been completed. (3) EtOH dependence: 03/22 -The patient's AUDIT score suggests problematic drinking (Zone III WHO). Brief intervention was offered and accepted. Intervention was greater than 5 min in length and included assessing readiness to quit, advice on how to reduce or abstain from alcohol, and to set a specific goal for this hospitalization. making line worker will also assist in anticipating barriers to sobriety and in problem-solving for solutions to those problems while arranging for referral to appropriate treatment. The patient is in contemplation stage with regards to transtheoretical model of change. The patient is advised to eliminate alcohol consumption due to depressant effects and risk of interaction with prescription medications. The patient agreed to resume therapy and will be provided with recovery materials to continue to educate self on how to cope with their condition without drinking. He will be placed on AWSS protocol and loaded with Neurontin with prn Ativan available. 03/23 - Pt stating he would be agreeable to outpatient D&A counseling 03/26 - Agreeable with therapy referral, previously seen at [facility] - Refusing recommendations for inpatient D&A rehabilitation - AWSS discontinued, as patient has not been scoring to receive prn medications in over 24hrs 03/27 -Therapy referral to [facility] made -No evidence of alcohol withdrawal. -Patient is highly resistant to the idea attending self-help groups, such as Alcoholics Anonymous, but acknowledges that should he experience temptation to drink following discharge he will address this by joining AA, and by discussing it further with his outpatient providers. (4) Anxiety: 03/24 -SSRI as above. Hydroxyzine as needed for anxiety. Work on healthy coping skills and behavioral techniques to manage anxiety. 03/27 -The patient reports some response to hydroxyzine for anxiety (25 mg), but mentions that he sometimes has panic attacks and notes that alprazolam (Xanax) is helpful to him. I reviewed with the patient the risk associated with benzodiazepines, given his history of alcohol abuse, and the fact that benzodiazepines can trigger alcohol relapse. -Anxiolytic medication such as buspirone 10 or 15 mg twice a day may be an option in outpatient treatment. (5) Arm paresthesia, left: 03/24 -appreciate hospitalist's recommendations; aspirin 81 mg daily started last night. As patient's neurological exam was nonfocal, they thought symptoms were most likely due to anxiety. 03/25 - ASA 81mg discontinued per hospitalist recommendation due to spontaneous recurrence of subdural hematoma in 08/2018 - No further physical complaints since readmission 03/27 -No further physical complaints subsequent to admission. (6) Hyperlipidemia: Continue home dose of Crestor. Post Discharge Appointments Primary Care Physician Name Of Family Doctor: Dr. Riojas Primary Care Time of Appointment with PCP: follow up as needed. Provider Appointment Comment: [place] [address] Psychiatrist Name of Psychiatrist: Gauri Fajardo Psychiatrist's Date of Appointment with Psychiatrist: 03/31/19 Time of Appointment with Psychiatrist: 10:05 am Psychiatric Appointment Comment: [facility] [id number] Therapist Name of Therapist: Harriet Ballard Therapist's Date of Therapist Appointment: 04/06/19 Time of Therapist Appointment: 1pm Therapy Appointment Comment: [place] [address] Leather Coverer Name of Leather Coverer: none Neurologist Name of Neurologist: Dr. Jose Hooks Neurologist's Date of Appointment with Neurologist: 04/14/19 Time of Appointment with Neurologist: 10am Neurology Appointment Comment: [address] , [place] [address] Smoking Cessation Counseling Tobacco Cessation Medication Prescribed at Discharge: Not Applicable/Non-Smoker Contact Information Discharge (cell), (home) Discharge Address: [address] [place] [address] Discharge Plan Discharge Items Patient Disposition: Home - Self-Care Reason For Visit: MAJOR DEPRESSIVE DISORDER Discharge Diagnosis: Major Depression Discharge Goals: Improve disease control, Improve function and Learn about illness Activity: Resume your previous activity Non-emergency contact: Primary Care Provider, Neurologist, Psychiatrist and Therapist Call non-emergency contact if: you have any medication questions and your symptoms worsen Follow-up/Referrals: Matheus Riojas [Primary Care Provider] - Diet: Regular Addtl Provider Instructions: Periodically review and follow your Safety Plan. Remember that alcohol relapse begin with a single drink. Prescriptions: New citalopram 20 mg Tablet 30 mg PO QAM Qty: 45 RF: 0 hydroxyzine HCl 25 mg Tablet 25 mg PO Q4H PRN (Reason: Anxiety) Qty: 20 RF: 2 Continued levetiracetam 500 mg Tablet 500 mg PO BID RF: 0 pantoprazole 40 mg Tablet,Delayed Release (Dr/Ec) 40 mg PO QAM RF: 0 epinephrine [EpiPen] 0.3 mg/0.3 mL Auto-Injector 0.3 mg IM DIRECTED PRN (Reason: Allergic Reaction) RF: 0 gabapentin 600 mg Tablet 600 mg PO Q12H Qty: 1 RF: 0 ropinirole 0.25 mg Tablet 0.5 mg PO DAILY@1900 Qty: 1 RF: 0 rosuvastatin [Crestor] 10 mg Tablet 10 mg PO DAILY RF: 0 Discontinued gabapentin 600 mg Tablet 600 mg PO Q24H Qty: 1 RF: 0 gabapentin 600 mg Tablet 600 mg PO Q8H Qty: 1 RF: 0 citalopram 20 mg Tablet 30 mg PO QAM Qty: 1 RF: 0 lorazepam [Ativan] 1 mg Tablet 1 mg PO .UD PRN (Reason: Anxiety) RF: 0 Stand-Alone Forms: [facility] Discharge Orders: Discharge Order (Routine); Ordered 03/27/19 Ordered By: Gaudencio Cabrera Admission Data Admit Date/Time: 03/23/19 22:41 Attending Provider: Daysi Douglass Admit Provider: Annelise Orta Primary Care Provider: Matheus Riojas Other Providers: Janice Cerna Service: Psychiatry Other Interventions: Discharge Summary Assessment (RN) Last Done: 03/27/19 10:02 PSY Interdisciplinary Discharge Planning Last Done: 03/26/19 17:24 Pending Studies at Discharge: No
[2019-03-27 10:03] VITALS: BP 136/80; PULSE 62
== END 2019-03-27 13:37 | disposition home or self-care (01) ==
LOC: ED 18:47 → 3S 22:41

== ENCOUNTER 2019-04-30 06:53 | Inpatient (IN) ==
[2019-04-30 07:15] LABS: Appearance Urine Clear (Clear); Bilirubin Urine Negative (Negative); Blood Urine Negative (Negative); Color Urine Yellow; Glucose Urine UA Negative (Negative); Ketones Urine Negative (Negative); Leukocyte Esterase Urine Negative (Negative); Nitrite Urine Negative (Negative); Protein Urine Negative (Negative); Specific Gravity Urine 1.021 (1.000-1.030); Urobilinogen Urine Negative (Negative)
[2019-04-30 07:45] LABS: Amphetamines+Metham, Urine Neg (Neg); Barbiturates, Urine Neg (Neg); Benzodiazepine, Urine Neg (Neg); Cocaine, Urine Neg (Neg); MDMA (Ecstacy), Urine Neg (Neg); Methadone, Urine Neg (Neg); Opiate, Urine Neg (Neg); Phencyclidine, Urine Neg (Neg)
[2019-04-30 07:46] LABS: Basophils # (auto) 0.02 K/uL (0-0.2); Basophils % (auto) 0.4 %; Eosinophils % (auto) 1.8 %; Hematocrit (blood only) 47.1 % (42-52); Immature Granulocytes # (auto) 0.02 K/uL (0.00-0.02); Immature Granulocytes % (auto) 0.4 %; Lymphocytes # (auto) 1.96 K/uL (1.2-3.4); Lymphocytes % (auto) 35.7 %; Mean Corpuscular Hgb Conc 36.1 g/dL (32-36); Mean Corpuscular Volume 89.7 fL (80-100); Mean Platelet Volume 9.5 fL (7.4-10.4); Monocytes % (auto) 9.1 %; Neutrophils # (auto) 2.89 K/uL (1.4-6.5); Neutrophils % (auto) 52.6 %; Platelet Count 134 K/uL (130-400); RDW Coefficient of Variation 13.5 % (11.5-14.5); RDW Standard Deviation 44.2 fL (36.4-46.3); Red Blood Count 5.25 M/uL (4.7-6.1); White Blood Count 5.49 K/uL (4.8-10.8)
[2019-04-30 08:02] LABS: Albumin Level 3.7 gm/dl (3.4-5.0); Calcium 8.5 mg/dl (8.5-10.1); Creatinine Clr Calc Pharmacy 122.4 ml/min; Est GFR (African American) 109.8; Est GFR (Non-African American) 94.7; Potassium 3.3 mmol/L (3.5-5.1)
[2019-04-30 08:12] LABS: Albumin Globulin Ratio 0.8 (0.9-2); Bilirubin,Total 0.4 mg/dl (0.2-1); Globulin 4.5 gm/dl (2.5-4.0); Total Protein 8.2 gm/dl (6.4-8.2)
[2019-04-30 08:15] LABS: Acetaminophen < 2 ug/ml (10-30)
--- NOTE | 2019-04-30 15:08 | Emergency Department Note ---
Entered by Ros Hannah acting as a scribe for History of Present Illness General Chief complaint: Mental Health Evaluation Stated complaint: 302 Time Seen by Provider: 04/30/19 07:01 Source: patient and other (security officers ) History of Present Illness Provider complaint: mental health evaluation Onset (ago): hour(s) (today) Location: head Pain Consistency: + constant Maximum Pain Intensity: 6 Quality: + other (mental health evaluation) Associated symptoms: + other (anxiety) The patient is a 58 year old male who presents to the Emergency Department with complaints of a mental health evaluation today. The patient states that he was brought into the hospital by police. He denies having thoughts of wanting to hurt himself. The patient states that he is on anxiety medications and does report feeling anxious. He states that he has not taken his Celexa for several days. He denies feeling depressed. The patient states that he has not been sleeping more than usual. He states that he has been feeling guilty for "his wh ole life." He denies having difficulty concentrating or having changes in his energy. The patient reports having "a couple drinks" last night. He states that he thinks he stopped drinking at 0000 or 0100. The patient denies drug use and states that he does not drink every day. He states that he was sleeping and was woken up and brought to the ED. Security officers state that the patient made statements about wanting to kill himself and states that the patient has guns at his house. Home Medications Home Medications Medication Instructions Recorded Confirmed Type rosuvastatin [Crestor] 10 mg PO QAM 09/13/18 04/30/19 History epinephrine [EpiPen] 0.3 mg IM DIRECTED PRN 03/21/19 04/30/19 History levetiracetam 500 mg PO BID 03/21/19 04/30/19 History pantoprazole 40 mg PO QAM 03/21/19 04/30/19 History ropinirole 0.5 mg PO DAILY@1900 #1 tab 03/23/19 04/30/19 Rx citalopram 30 mg PO QAM #45 tab 03/27/19 04/30/19 Rx hydroxyzine HCl 25 mg PO Q4H PRN #20 tab 03/27/19 04/30/19 Rx quetiapine 50 mg PO HS 04/30/19 04/30/19 History Allergies Allergy/AdvReac Type Severity Reaction Status Date / Time bee venom protein (honey bee) Allergy Severe ANAPHYLAXIS Verified 03/23/19 20:11 cat dander Allergy Intermediate Itchy/Watery Verified 03/23/19 20:11 Eyes, Itchy throat tamsulosin Allergy Intermediate Hives Verified 03/23/19 20:11 Past Med/Surg History Medical History Hypertension (Chronic) Hyperlipidemia (Chronic) Anxiety (Chronic) Diverticulosis (Chronic) Left arm weakness Prostate cancer (Resolved 07/30/16) "STAGING: Prostate, adenocarcinoma, triny 3 + 4, PSA 4.65, cT1c, group IIA Prostate gland size by TRUS - 25.1 TREATMENT: 1. Status post prostate seed implant as boost 11/06/2016 43 seeds were placed 8500 cGy 2. Status post completion of IMRT/IGRT completed 01/28/2017 received 4500 cGy" On 12/06/16 15:38 Tricia Solorio wrote "STAGING: Prostate, adenocarcinoma, triny 3 + 4, PSA 4.65, cT1c, group IIA Prostate gland size by TRUS - 25.1 TREATMENT: 1. Status post prostate seed implant as boost 11/06/2016 43 seeds were placed 8500 cGy" On 08/22/16 10:51 Cristofer Cottrell wrote "STAGING: Prostate, adenocarcinoma, triny 3 + 4, PSA 4.65, cT1c, group IIA Prostate gland size by TRUS - 25.1 " TIA (transient ischemic attack) Alcohol abuse Depression Panic attacks Surgical History History of cholecystectomy History of repair of ACL Family History Other Cancer Social History Preferred Language: Setswana Communication Ability: Effective Beliefs That Will Affect Care: None Feels Safe at Home: Yes Smoking Status: Never smoker Tobacco Type: cigars Review of Systems See HPI for pertinent positives & negatives. and A total of 10 systems reviewed and were otherwise negative Physical Exam Vital Signs Vital Signs - 24 hr 04/30/19 06:54 04/30/19 08:00 04/30/19 08:53 Temperature 36.4 C L 36.6 C Temperature Source Oral Oral Sepsis Recent Fever Within 48 Hours No Sepsis New/Unexplained Change in Mental Status No Sepsis Action Taken by Nursing No Action Required No Action Required Pulse Rate 82 Pulse Rate [Right Brachial] 95 H Pulse Rhythm [Right Brachial] Regular Pulse Strength [Right Brachial] Bounding Respiratory Rate 18 18 Respiratory Effort / Characteristics Non-Labored Spontaneous Respiratory Depth Normal Respiratory Pattern Regular Blood Pressure 150/92 H Blood Pressure [Right Arm] 134/85 Blood Pressure Mean 111 Blood Pressure Mean [Right Arm] 101 Blood Pressure Position [Right Arm] Standing Pulse Oximetry 94 92 Oxygen Delivery Method Room Air Room Air 04/30/19 13:52 Temperature Temperature Source Sepsis Recent Fever Within 48 Hours Sepsis New/Unexplained Change in Mental Status Sepsis Action Taken by Nursing Pulse Rate Pulse Rate [Right Brachial] 85 Pulse Rhythm [Right Brachial] Pulse Strength [Right Brachial] Respiratory Rate Respiratory Effort / Characteristics Respiratory Depth Respiratory Pattern Blood Pressure Blood Pressure [Right Arm] 142/95 H Blood Pressure Mean Blood Pressure Mean [Right Arm] 110 Blood Pressure Position [Right Arm] Pulse Oximetry Oxygen Delivery Method GENERAL: He appears well-developed and well-nourished. He does not appear distressed. Smells of alcohol. HENT: Exam performed. - Head: Normocephalic and atraumatic. - Right Ear: External ear normal. No mastoid tenderness. - Left Ear: External ear normal. No mastoid tenderness. - Mouth/Throat: The oropharynx is clear and moist. No trismus in the jaw. No dental abscesses or uvula swelling. No oropharyngeal exudate or tonsillar abscesses. EYES: Conjunctivae and EOM are normal. Pupils are equal, round, and reactive to light. Right eye exhibits no discharge. Left eye exhibits no discharge. No scleral icterus. NECK: Normal range of motion. Neck supple. No JVD present. No spinous process tenderness present. No carotid bruit present. No rigidity. No tracheal deviation and normal range of motion present. No Brudzinski's sign and no Kernig's sign noted. CV: Normal rate, regular rhythm, normal heart sounds and intact distal pulses. There is no peripheral edema. Palpable radial pulses bue. PULM/CHEST: Effort normal and breath sounds normal. No respiratory distress. No stridor. He has no wheezes. He has no rales. - Chest Wall: He exhibits no tenderness. ABD: The abdomen is soft. Bowel sounds are normal. He has no distension. No mass is present. There is no tenderness. There is no rebound, no guarding, no Zendejas's sign and no tenderness at McBurney's point. Rovsig negative. MUSC/SKEL: Normal range of motion. There is no peripheral edema, tenderness or deformity. LYMPH: No cervical adenopathy. NEURO: He is alert and oriented to person, place, and time. He has normal stre ngth. No cranial nerve deficit or sensory deficit. Coordination and gait normal. GCS eye subscore is 4. GCS verbal subscore is 5. GCS motor subscore is 6. Cerebellar tests wnl. SKIN: Skin is warm and dry. He is not diaphoretic. PSYCH: He has a normal mood and affect. Behavior is normal. Judgment and thought content normal. Course 0705: The patient was evaluated in room A6. A history and physical were performed. 1500: Patient is medically cleared. We are awaiting psychiatric evaluation. The patient was signed out at the change of shift to Dr. Yeung. Medical Decision Making Medical Records Attestation: I reviewed the patient's medical records. Home Medications Current Medication List: was personally reviewed by me Laboratory Data Attestation: I reviewed the patient's lab results. Result diagrams: 04/30/19 07:26 04/30/19 07:26 Lab Results 04/30/19 04/30/19 04/30/19 Range/Units 07:04 07:04 07:26 WBC 5.49 (4.8-10.8) K/uL RBC 5.25 (4.7-6.1) M/uL Hgb 17.0 (14.0-18.0) g/dL Hct 47.1 (42-52) % MCV 89.7 (80-100) fL MCH 32.4 (25-34) pg MCHC 36.1 H (32-36) g/dL RDW Std Deviation 44.2 (36.4-46.3) fL RDW Coeff of Antonio 13.5 (11.5-14.5) % Plt Count 134 (130-400) K/uL MPV 9.5 (7.4-10.4) fL Immature Gran % (Auto) 0.4 % Neut % (Auto) 52.6 % Lymph % (Auto) 35.7 % Mobile % (Auto) 9.1 % Eos % (Auto) 1.8 % Baso % (Auto) 0.4 % Immature Gran # (Auto) 0.02 (0.00-0.02) K/uL Neut # (Auto) 2.89 (1.4-6.5) K/uL Lymph # (Auto) 1.96 (1.2-3.4) K/uL Mobile # (Auto) 0.50 (0.11-0.59) K/uL Eos # (Auto) 0.10 (0-0.5) K/uL Baso # (Auto) 0.02 (0-0.2) K/uL Sodium (136-145) mmol/L Potassium (3.5-5.1) mmol/L Chloride (98-107) mmol/L Carbon Dioxide (21-32) mmol/L Anion Gap (3-11) BUN (7-18) mg/dl Creatinine (0.6-1.4) mg/dl Est Cr Clr Drug Dosing ml/min Est GFR ( Amer) Est GFR (Non-Af Amer) BUN/Creatinine Ratio (10-20) Glucose (70-99) mg/dl Calcium (8.5-10.1) mg/dl Total Bilirubin (0.2-1) mg/dl AST (15-37) U/L ALT (12-78) U/L Alkaline Phosphatase (45-117) U/L Total Protein (6.4-8.2) gm/dl Albumin (3.4-5.0) gm/dl Globulin (2.5-4.0) gm/dl Albumin/Globulin Ratio (0.9-2) TSH (0.300-4.500) uIu/ml Urine Color Yellow Urine Appearance Clear (Clear) Urine pH 5.0 (4.5-7.5) Ur Specific [place] 1.021 (1.000-1.030) Urine Protein Negative (Negative) Urine Glucose (UA) Negative (Negative) Urine Ketones Negative (Negative) Urine Blood Negative (Negative) Urine Nitrite Negative (Negative) Urine Bilirubin Negative (Negative) Urine Urobilinogen Negative (Negative) Ur Leukocyte Esterase Negative (Negative) Salicylates (2.8-20) mg/dl Urine Opiates Screen Neg (Neg) Ur Methadone, Qual Neg (Neg) Acetaminophen (10-30) ug/ml Urine Barbiturates Neg (Neg) Ur Phencyclidine (PCP) Neg (Neg) U Amphetamin/Meth Scrn Neg (Neg) MDMA (Ecstasy) Screen Neg (Neg) U Benzodiazepines Scrn Neg (Neg) Ur Cocaine Metabolite Neg (Neg) U Marijuana (THC) Screen Neg (Neg) Ethyl Alcohol mg/dL (0-3) mg/dl 04/30/19 04/30/19 04/30/19 Range/Units 07:26 07:26 07:26 WBC (4.8-10.8) K/uL RBC (4.7-6.1) M/uL Hgb (14.0-18.0) g/dL Hct (42-52) % MCV (80-100) fL MCH (25-34) pg MCHC (32-36) g/dL RDW Std Deviation (36.4-46.3) fL RDW Coeff of Antonio (11.5-14.5) % Plt Count (130-400) K/uL MPV (7.4-10.4) fL Immature Gran % (Auto) % Neut % (Auto) % Lymph % (Auto) % Mobile % (Auto) % Eos % (Auto) % Baso % (Auto) % Immature Gran # (Auto) (0.00-0.02) K/uL Neut # (Auto) (1.4-6.5) K/uL Lymph # (Auto) (1.2-3.4) K/uL Mobile # (Auto) (0.11-0.59) K/uL Eos # (Auto) (0-0.5) K/uL Baso # (Auto) (0-0.2) K/uL Sodium 143 (136-145) mmol/L Potassium 3.3 L (3.5-5.1) mmol/L Chloride 108 H (98-107) mmol/L Carbon Dioxide 22 (21-32) mmol/L Anion Gap 12.0 H (3-11) BUN 11 (7-18) mg/dl Creatinine 0.85 (0.6-1.4) mg/dl Est Cr Clr Drug Dosing 122.4 ml/min Est GFR ( Amer) 109.8 Est GFR (Non-Af Amer) 94.7 BUN/Creatinine Ratio 13.0 (10-20) Glucose 100 H (70-99) mg/dl Calcium 8.5 (8.5-10.1) mg/dl Total Bilirubin 0.4 (0.2-1) mg/dl AST 49 H (15-37) U/L ALT 41 (12-78) U/L Alkaline Phosphatase 100 (45-117) U/L Total Protein 8.2 (6.4-8.2) gm/dl Albumin 3.7 (3.4-5.0) gm/dl Globulin 4.5 H (2.5-4.0) gm/dl Albumin/Globulin Ratio 0.8 L (0.9-2) TSH 3.120 (0.300-4.500) uIu/ml Urine Color Urine Appearance (Clear) Urine pH (4.5-7.5) Ur Specific [place] (1.000-1.030) Urine Protein (Negative) Urine Glucose (UA) (Negative) Urine Ketones (Negative) Urine Blood (Negative) Urine Nitrite (Negative) Urine Bilirubin (Negative) Urine Urobilinogen (Negative) Ur Leukocyte Esterase (Negative) Salicylates 5.0 (2.8-20) mg/dl Urine Opiates Screen (Neg) Ur Methadone, Qual (Neg) Acetaminophen < 2 L (10-30) ug/ml Urine Barbiturates (Neg) Ur Phencyclidine (PCP) (Neg) U Amphetamin/Meth Scrn (Neg) MDMA (Ecstasy) Screen (Neg) U Benzodiazepines Scrn (Neg) Ur Cocaine Metabolite (Neg) U Marijuana (THC) Screen (Neg) Ethyl Alcohol mg/dL 274.1 H (0-3) mg/dl Blood Pressure Blood Pressure Findings: Elevated blood pressure Blood Pressure Disposition: elevated BP felt to be situational MDM Narrative Patient is medically cleared. We are awaiting psychiatric evaluation. The patient was signed out at the change of shift to Dr. Yeung. Impression & Plan Alcohol intoxication, Suicidal ideation Discharge Plan Visit Data Chief Complaint: Mental Health Evaluation Stated Complaint: 302 ED Provider: Ernesto Damon Discharge Problem: Alcohol intoxication, Suicidal ideation Patient Disposition: Still a Patient Forms Stand Alone Forms: [facility] Prescriptions Prescriptions: No Action levetiracetam 500 mg Tablet 500 mg PO BID RF: 0 pantoprazole 40 mg Tablet,Delayed Release (Dr/Ec) 40 mg PO QAM RF: 0 epinephrine [EpiPen] 0.3 mg/0.3 mL Auto-Injector 0.3 mg IM DIRECTED PRN (Reason: Allergic Reaction) RF: 0 ropinirole 0.25 mg Tablet 0.5 mg PO DAILY@1900 Qty: 1 RF: 0 citalopram 20 mg Tablet 30 mg PO QAM Qty: 45 RF: 0 hydroxyzine HCl 25 mg Tablet 25 mg PO Q4H PRN (Reason: Anxiety) Qty: 20 RF: 2 quetiapine 50 mg tablet 50 mg PO HS RF: 0 rosuvastatin [Crestor] 10 mg Tablet 10 mg PO QAM RF: 0 Referrals Referrals: Matheus Riojas [Primary Care Provider] - The scribe's documentation has been prepared under my direction and personally reviewed by me in its entirety. I confirm that the note above accurately reflects all work, treatment, procedures, and medical decision making performed by me.
[2019-04-30] MEDS ORDERED: BISMUTH SUBSALICYLATE PER ML OMNICELL CHARGE PO PRN (16:45)
[2019-04-30] MEDS ORDERED: SODIUM CHLORIDE 0.65% NA SOLN 45 ML (OCEAN) PRN (16:45)
[2019-04-30] MEDS ORDERED: MAGNESIUM HYDROXIDE SUSP 30 ML UDC PO PRN (16:45)
[2019-04-30] MEDS ORDERED: ACETAMINOPHEN 325 MG TAB PO PRN (16:45)
[2019-04-30] MEDS ORDERED: ALUMINUM/MAGNESIUM SUSP 30 ML UDC PO PRN (16:45)
[2019-04-30 17:17] VITALS: O2SAT 96
[2019-04-30] MEDS: LORazepam 1 MG TAB PO PRN (17:58)
[2019-04-30] MEDS: ROPINIROLE HCL 0.25 MG TABLET PO SCH (18:53)
--- NOTE | 2019-04-30 18:53 | Emergency Department Note ---
ED Visit Note The patient was signed out to me awaiting mental health evaluation. After reviewing the patient's records, 302 and the patient, the patient will be accepted at [facility] via a 302 petition. This has been completed. The patient was admitted to [facility] .
[2019-04-30] MEDS: levETIRAcetam 500 MG TAB PO SCH (21:09)
[2019-05-01] MEDS: ROSUVASTATIN CALCIUM 10 MG TAB PO SCH (08:23)
[2019-05-01] MEDS: PANTOprazole 40 MG TAB PO SCH (08:23)
[2019-05-01] MEDS: levETIRAcetam 500 MG TAB PO SCH ×2 (08:23→20:54)
[2019-05-01] MEDS: LORazepam 1 MG TAB PO PRN (12:26)
--- NOTE | 2019-05-01 16:49 | History & Physical ---
Date of Service May 01, 2019 Impression / Recommendations Impression This 58-year-old man presents with a history of alcohol dependence, and, within that context, a history of depression and anxiety. 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 In any event, the patient clearly lacks substantial insight into his circumstances. Despite two psychiatric admissions in approximately 5 weeks because of overt suicidality, within the context of alcohol intoxication, today the patient actually questions whether or not he actually should be considered alcoholic. He liberally uses psychological defense mechanisms of denial, rationalization and intellectualization to explain his use of alcohol. He also clearly minimizes his use as well as the negative effects that this is having on him, and he is overestimating his ability to achieve and maintain sobriety on his own. The patient's assertion is that his mood is quite labile, and he will often feel "fine" until there is a particular stressor, and then he, as he puts it, "overreacts" to the stressor and "crashes" and experiences what he considers to be overwhelming anxious distress and depression. He is convinced that he is only using alcohol to "self medicate" emotional lability, anxiety, and depression, and has difficulty accepting that even if the primary problem is related to mood regulation, his ongoing, habitual abuse of alcohol will frustrate any efforts to successfully treat the underlying mood disorder. He was also advised that alcohol may result initially resulted in a more relaxed mood for some people, but as a depressant substance it is likely to exacerbate mood disorders over time. Furthermore, we are emphasizing with this patient the fact that he has now found himself admitted to a psychiatric hospital twice in 5 weeks as a direct result of being intoxicated. We reviewed the diagnostic criteria for alcohol dependence, but the patient is fairly heavily in denial and, for example, we will not except that his marital difficulties have been substantially exacerbated by his use of alcohol. We will offer the patient a trial of a mood stabilizer. He does have a history of playing football, and as well a history of closed head injuries, and because of this lamotrigine may have a stabilizing effect both in terms of his emotional lability and his mood alterations Currently, continue citalopram 30 mg daily and begin lamotrigine 25 mg daily. Lamotrigine will be titrated gradually as tolerated. Material risks, including but not limited to De Luna-Elio syndrome, were reviewed with the patient, together with anticipated benefits. The patient has several questions and indicated understanding. He was advised to monitor himself for a rash, and he notes that he "tends to get rashes easily." He agrees to notify staff immediately should he notice a rash anywhere on his body. (1) Major depression, recurrent: 05/01/19 -Increase citalopram to 40 mg daily. -Begin lamotrigine 25 mg daily for mood regulation, and titrate slowly. Material risks, including but not limited to risk of De Luna-Elio syndrome were reviewed with the patient and he indicated understanding. -The patient is being referred for group and activity therapies. He will also be provided with chemical dependency education. Present on Admission?: Yes (2) Alcohol dependence: 05/01/19 -The patient remains in denial about the nature and degree of his alcohol dependence, and will need to be directly confronted regarding his tendency to use denial, intellectualization and rationalization as defenses. -The patient has been told that we are recommending residential chemical dependency treatment. At this point, the patient is saying that he will refuse any such treatment because he insists that alcohol is not a problem and that he can control his alcohol use on his own. (3) Suicidal behavior: 05/01/19 -The patient minimizes the fact that this is his second psychiatric hospitalization in 5 weeks following direct threats of suicide by intentional self-inflicted gunshot wound. Today, he tells me that although at the time of his psychiatric admission in early March, he had been experiencing suicidal ideation with suicidal intent, he tells us that this time he is not aware that he was having suicidal thoughts, and attempts to rationalize the fact that he evidently made threats of suicide to a friend by saying "he is a histrionic denny" and "I think she just jumped to conclusions." -The patient is currently denying suicidal ideation, but has trouble understanding that he has demonstrated that he is unable to roll his alcohol use on his own (as evidenced by the fact that he seems to have relapsed on alcohol in 2 weeks or less following his most recent previous discharge) and that, within this context, he has now twice made direct, credible threats of suicide by self inflicted gunshot wound. The fact that he was intoxicated on both occasions not only does not decrease the risk but, to the contrary, actually increases it. -Inpatient psychiatric hospitalization is the least intensive level of care consistent with the patient's safety. My finding is that were he to be discharged to the community at this time he would pose an eminent danger to himself. Present on Admission?: Yes Inventory Assets Strengths: Intelligent. Positive work history. Concerned and supportive family. Motivated to certain forms of treatment. Needs: Willingness to accept that he is alcoholic. Alcoholism treatment, and participation actively in self-help groups. Recovery from symptoms of anxiety and depression. Sustained resolution of suicidality patient and suicidal threats. 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 He has a history of alcohol dependence, depression, and anxiety. He was admitted on 04/30/19 16:45 on a 302 involuntary commitment because of suicide threats. Chief Complaint "It is all a misunderstanding.". History of Present Illness The patient is a 58-year-old man who had been discharged from the behavioral health unit on 03/27/2019 following treatment for depression, alcohol dependence, and expressions of suicidal intent. The patient reports that subsequent to his discharge, he did not follow through on the recommendation that he participate in self-help groups (Alcoholic's Anonymous) and he also indicates that he did not adhere to the recommendation that he participate in formal chemical dependency treatment. Within that context, the patient acknowledges that he resumed use of alcohol approximately 2 weeks after discharge, although he also suggests that he was not "counting" the occasional drink that may have occurred earlier than 2 weeks following discharge. He tells me the admission was precipitated by the fact that he had a disagreement with his wifeand, after a great deal of coaxing, he acknowledged that the disagreement was related to his ongoing issues of alcohol. Although he had reported to the emergency room that he had not been drinking very much, he told me that he recalls little of what happened, other than he called a friend of his in [place] and told a friend that he was feeling "depressed." The patient went on to say that the problem is that the friend is "histrionic" [his word] and "jump to conclusions." In fact, the friend reported that the patient had made suicidal statements and contacted the local police. The patient initially asserted that he was certainly did not threaten suicide to the friend, but then contradicted himself by saying that he was unable to recall what he had said. He reports that the local police came to his door, and he says that he was "under the influence," and, again, does not r ecall what he said. The police report and the petitioning statement indicates that the patient made a direct threat of suicide by saying that he was going to purchase a gun and "off" himself with that. The patient minimizes this, notes that the expression "off" is not one that he uses to mean "kill" and tries to explain that the police guard possibly misunderstood. His report of alcohol consumption is not considered reliable. At one point during the admission interview the patient reports that he does not necessarily consider himself to be "alcoholic" because he does not "crave" alcohol and does not "drink every day." When it was pointed out to him that he has been scoring on the AWWS, he acknowledges that "well, may be was having a little bit of withdrawal." Patient reports that his emotional pattern is to feel "pretty good. Positive. Not depressed," and then some form of emotional trigger, such as a disagreement in the family or and expressed financial concern can cause precipitate a rapid descent into anxious distress and depression. He reports that it is during these times that he feels compelled to consume alcohol, and describes his alcohol use as "self medication." However, this report is largely and consistent with the known pattern of the patient's alcohol use Past Psychiatric History Previous Psych History: There is 1 previous psychiatric hospitalization in early March, to the behavioral health unit at [facility]. He reports that prior to this previous psychiatric hospitalization he had been taking the antidepressant medication citalopram 30 mg, together with as needed lorazepam 1 mg tablets, as prescribed by his primary care physician. Lorazepam was not continued at discharge, and he was discharged on citalopram 30 mg daily on 03/27/2019, with recommendations that he receive follow-up psychiatric and chemical dependency treatment at "[facility]." Current Psychiatric Diagnosis: MDD, alcohol UD Outpatient Services: Patient reports that he was seen at least once subsequent to discharge by a psychiatrist at [facility], and was continued on citalopram 30 mg daily. Previous Psych Admissions: One previous psychiatric hospitalization. This oc curred at the [facility] behavioral health unit. . Do You Have Access To A Gun?: No (The patient's son reports that while there are guns in the patient's home, the guns have been secured and the patient does not have access to them) History of Previous Suicide Attempt: No (Immediately prior to the previous admission the patient went to a gun shop with the intent to purchase a firearm for purposes of suicide) Describe Attempts in the Past: Similar situation last month, SI while drinking; No prior attempts Past Medication Trials: Citalopram and as needed lorazepam. He was also given a prescription for quetiapine 50 mg at bedtime, as well as hydroxyzine 25 mg every 4 hours as needed for anxiety, by his outpatient provider. Additional Notes: During the psychiatric hospitalization in March 2019 the patient acknowledges that, immediately prior to admission, he had gone to a gun shop with the intent of purchasing a firearm with which to shoot himself. He says that he entered the shop, but found no one behind the counter and after waiting "a long time" he decided to leave. At that time he admits that he texted a threat of suicide and continued to drink heavily. Past Head Trauma/Neuro History History of Concussion/Seizure: No (Patient denies a history of concussion today, but has a history of playing football.) Allergies Allergy/AdvReac Type Severity Reaction Status Date / Time bee venom protein (honey bee) Allergy Severe ANAPHYLAXIS Verified 03/23/19 20:11 cat dander Allergy Intermediate Itchy/Watery Verified 03/23/19 20:11 Eyes, Itchy throat tamsulosin Allergy Intermediate Hives Verified 03/23/19 20:11 Home Medications Home Medications Medication Instructions Recorded Confirmed Type rosuvastatin [Crestor] 10 mg PO QAM 09/13/18 04/30/19 History epinephrine [EpiPen] 0.3 mg IM DIRECTED PRN 03/21/19 04/30/19 History levetiracetam 500 mg PO BID 03/21/19 04/30/19 History pantoprazole 40 mg PO QAM 03/21/19 04/30/19 History ropinirole 0.5 mg PO DAILY@1900 #1 tab 03/23/19 04/30/19 Rx citalopram 30 mg PO QAM #45 tab 03/27/19 04/30/19 Rx hydroxyzine HCl 25 mg PO Q4H PRN #20 tab 03/27/19 04/30/19 Rx quetiapine 50 mg PO HS 04/30/19 04/30/19 History Family History Family History of: None Alcohol History Hx of Alcohol Use Over the Past 12 Months: Yes (drinking almost every day for past 2 wks) AUDIT Total Score: 12 Smoking Use Have You Smoked or Used Tobacco Products in the Last 30 Days: Yes tobacco type: cigars Smoking Status: Light tobacco smoker Smoking packs per day: 0.05 Substance History Hx of Prescription Med Misuse Over the Past 12 Months: No Hx of Over the Counter Med Misuse Over the Past 12 Months: No Hx of Inhalent Misuse Over the Past 12 Months: No Hx of Organic Substance Use Over the Past 12 Months: No Hx of Illegal Substances/Street Drug Use Over Past 12 Months: No Problems as a Result of Past Substance Use: Life out of Control Problems as a Result of Past Substance Use Comments: Marital and family discord. Personal History Living Arrangements: Home Highest Grade Completed: College Highest Grade Completed Comment: [employer], degree in education. 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 Employment Status: Unemployed Marital Status: Number Of Children: 2 Beliefs That Will Affect Care: None Current Legal Problems: No Hx Legal Problems: No Hx Traumatic Life Events: Yes (medical) Patient History Medical History Hypertension (Chronic) Hyperlipidemia (Chronic) Anxiety (Chronic) Diverticulosis (Chronic) Left arm weakness Prostate cancer (Resolved 07/30/16) "STAGING: Prostate, adenocarcinoma, triny 3 + 4, PSA 4.65, cT1c, group IIA Prostate gland size by TRUS - 25.1 TREATMENT: 1. Status post prostate seed implant as boost 11/06/2016 43 seeds were placed 8500 cGy 2. Status post completion of IMRT/IGRT completed 01/28/2017 received 4500 cGy" On 12/06/16 15:38 Tricia Solorio wrote "STAGING: Prostate, adenocarcinoma, triny 3 + 4, PSA 4.65, cT1c, group IIA Prostate gland size by TRUS - 25.1 TREATMENT: 1. Status post prostate seed implant as boost 11/06/2016 43 seeds were placed 8500 cGy" On 08/22/16 10:51 Cristofer Cottrell wrote "STAGING: Prostate, adenocarcinoma, triny 3 + 4, PSA 4.65, cT1c, group IIA Prostate gland size by TRUS - 25.1 " TIA (transient ischemic attack) Alcohol abuse Depression Panic attacks Surgical History History of cholecystectomy History of repair of ACL Family History Other Cancer Social History Preferred Language: Croatian Communication Ability: Effective Director Of Collections And Archives Required: No Beliefs That Will Affect Care: None Feels Safe at Home: Yes Smoking Status: Light tobacco smoker Tobacco Type: cigars Review of Systems Review of Systems: All systems reviewed & are unremarkable except as noted in HPI & below The somatic history, physical examination and review of systems as completed by Antony Gotti in the emergency department has been reviewed and is approved for purposes of medical clearance to the behavioral health unit. Physical Exam Psychiatric: Orientation: oriented x 3 Apperance: appropriately dressed, appropriately groomed and appeared stated age Eye Contact: + poor eye contact Motor Behavior: + psychomotor agitation Speech: normal rate/rhythm/volume of speech Affect: + labile affect Mood: + depressed mood and + anxious mood Thought Process: + tangential thought process Thought Content: reality based without delusions The patient's the patient's thought content is remarkable for frequent use of denial, rationalization, and intellectualization as defense mechanisms. Suicidal Thoughts: denies suicidal thoughts It must be noted that this is the second psychiatric hospitalization and slightly more than 1 month precipitated by the patient's threat of purchasing a gun and shooting himself. In this instance, there is a signed statement by a police guard that avers that Mr. Hogan ordered a threat to obtain a firearm and commit suicide. Homicidal Thoughts: denies homicidal thoughts Hallucinations: no auditory hallucinations, no visual hallucinations, no tactile hallucinations and no gustatory hallucinations Cognition: recent memory grossly intact, remote memory grossly intact and language grossly intact The patient's memory is intact, although he frequently acknowledges that he cannot recall specific details of relevant events because he was intoxicated at the time. Estimated Intelligence: + above average estimated intelligence Insight: + poor insight Judgement: + poor judgement Vital Signs (Past 24 Hours): Last Vital Signs Temp 36.3 C L 05/01/19 14:23 Pulse 83 05/01/19 14:23 Resp 18 05/01/19 14:23 BP 164/90 H 05/01/19 14:23 Pulse Ox 96 04/30/19 17:46 Results & Data Current Inpatient Medications Current Inpatient Medications: Current Inpatient Medications Acetaminophen (Tylenol) 650 mg PO Q4H PRN PRN Reason: Headache or Minor Fever Stop: 05/30/19 16:44 Al Hydrox/Mg Hydrox/Simethicone (Maalox) 30 ml PO Q4H PRN PRN Reason: GI Upset Stop: 05/30/19 16:44 Bismuth Subsalicylate (Kaopectate) 15 ml PO PRN PRN PRN Reason: Loose Stool Stop: 05/30/19 16:44 Hydroxyzine HCl (Vistaril) 25 mg PO Q4H PRN PRN Reason: Anxiety Stop: 05/30/19 16:44 Hydroxyzine HCl (Vistaril) 50 mg PO HSZ PRN PRN Reason: Insomnia Stop: 05/30/19 16:44 Levetiracetam (Keppra) 500 mg PO BID LESLEE Stop: 05/30/19 20:59 Last Admin: 05/01/19 08:23 Dose: 500 mg Documented by: Lorazepam (Ativan) 1 - 3 mg PO UD PRN; Protocol PRN Reason: EtoH Withdrawal AWSS 6-10+ Stop: 05/30/19 16:44 Last Admin: 05/01/19 12:26 Dose: 1 mg Documented by: Magnesium Hydroxide (Milk Of Magnesia) 30 ml PO DAILY PRN PRN Reason: Heartburn Stop: 05/30/19 16:44 Pantoprazole Sodium (Protonix) [facility] Stop: 05/31/19 08:59 Last Admin: 05/01/19 08:23 Dose: 40 mg Documented by: Ropinirole HCl (Requip) 0.5 mg PO DAILY@1900 [facility] Stop: 05/30/19 18:59 Last Admin: 04/30/19 18:53 Dose: 0.5 mg Documented by: Rosuvastatin Calcium (Crestor) 10 mg [facility] [place] Stop: 05/31/19 08:59 Last Admin: 05/01/19 08:23 Dose: 10 mg Documented by: Sodium Chloride (Major Nasal) 1 - 2 sprays NA PRN PRN PRN Reason: Nasal Dryness/Congestion Stop: 05/30/19 16:44 CPT Code CPT Code Initial Hospital Care: 30075
[2019-05-01] MEDS: lamoTRIgine 25 MG TAB PO SCH (17:37)
[2019-05-01] MEDS: ROPINIROLE HCL 0.25 MG TABLET PO SCH (19:42)
[2019-05-02] MEDS: PANTOprazole 40 MG TAB PO SCH (08:46)
[2019-05-02] MEDS: CITALOPRAM 40 MG TAB PO SCH (08:46)
[2019-05-02] MEDS: lamoTRIgine 25 MG TAB PO SCH (08:46)
[2019-05-02] MEDS: ROSUVASTATIN CALCIUM 10 MG TAB PO SCH (08:46)
[2019-05-02] MEDS: levETIRAcetam 500 MG TAB PO SCH ×2 (08:46→21:11)
--- NOTE | 2019-05-02 12:12 | Psychiatric Progress Note ---
Date of Service May 02, 2019 Impression / Recommendations Impression This 58-year-old man presents with a history of alcohol dependence, and, within that context, a history of depression and anxiety. 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 In any event, the patient clearly lacks substantial insight into his circumstances. Despite two psychiatric admissions in approximately 5 weeks because of overt suicidality, within the context of alcohol intoxication, today the patient actually questions whether or not he actually should be considered alcoholic. He liberally uses psychological defense mechanisms of denial, rationalization and intellectualization to explain his use of alcohol. He also clearly minimizes his use as well as the negative effects that this is having on him, and he is overestimating his ability to achieve and maintain sobriety on his own. The patient's assertion is that his mood is quite labile, and he will often feel "fine" until there is a particular stressor, and then he, as he puts it, "overreacts" to the stressor and "crashes" and experiences what he considers to be overwhelming anxious distress and depression. He is convinced that he is only using alcohol to "self medicate" emotional lability, anxiety, and depression, and has difficulty accepting that even if the primary problem is related to mood regulation, his ongoing, habitual abuse of alcohol will frustrate any efforts to successfully treat the underlying mood disorder. He was also advised that alcohol may result initially resulted in a more relaxed mood for some people, but as a depressant substance it is likely to exacerbate mood disorders over time. Furthermore, we are emphasizing with this patient the fact that he has now found himself admitted to a psychiatric hospital twice in 5 weeks as a direct result of being intoxicated. We reviewed the diagnostic criteria for alcohol dependence, but the patient is fairly heavily in denial and, for example, we will not except that his marital difficulties have been substantially exacerbated by his use of alcohol. We will offer the patient a trial of a mood stabilizer. He does have a history of playing football, and as well a history of closed head injuries, and because of this lamotrigine may have a stabilizing effect both in terms of his emotional lability and his mood alterations Currently, continue citalopram 30 mg daily and begin lamotrigine 25 mg daily. Lamotrigine will be titrated gradually as tolerated. Material risks, including but not limited to De Luna-Elio syndrome, were reviewed with the patient, together with anticipated benefits. The patient has several questions and indicated understanding. He was advised to monitor himself for a rash, and he notes that he "tends to get rashes easily." He agrees to notify staff immediately should he notice a rash anywhere on his body. (1) Major depression, recurrent: 05/01/19 -Increase citalopram to 40 mg daily. -Begin lamotrigine 25 mg daily for mood regulation, and titrate slowly. Material risks, including but not limited to risk of De Luna-Elio syndrome were reviewed with the patient and he indicated understanding. -The patient is being referred for group and activity therapies. He will also be provided with chemical dependency education. 05/02 Tolerating increased Celexa and Lamictal without difficulty Denying suicidal ideation or other safety concerns today (2) Alcohol dependence: 05/01/19 -The patient remains in denial about the nature and degree of his alcohol dependence, and will need to be directly confronted regarding his tendency to use denial, intellectualization and rationalization as defenses. -The patient has been told that we are recommending residential chemical dependency treatment. At this point, the patient is saying that he will refuse any such treatment because he insists that alcohol is not a problem and that he can control his alcohol use on his own. 05/02 Insight facilitation regarding destructive role of alcohol use. Encouraged active participation in recovery protocol, trigger identification Encouraging consideration for substance abuse treatment program to follow psychiatric discharge (3) Suicidal behavior: 05/01/19 -The patient minimizes the fact that this is his second psychiatric hospitalization in 5 weeks following direct threats of suicide by intentional self-inflicted gunshot wound. Today, he tells me that although at the time of his psychiatric admission in early March, he had been experiencing suicidal ideation with suicidal intent, he tells us that this time he is not aware that he was having suicidal thoughts, and attempts to rationalize the fact that he evidently made threats of suicide to a friend by saying "he is a histrionic denny" and "I think she just jumped to conclusions." -The patient is currently denying suicidal ideation, but has trouble understanding that he has demonstrated that he is unable to roll his alcohol use on his own (as evidenced by the fact that he seems to have relapsed on alcohol in 2 weeks or less following his most recent previous discharge) and that, within this context, he has now twice made direct, credible threats of suicide by self inflicted gunshot wound. The fact that he was intoxicated on both occasions not only does not decrease the risk but, to the contrary, actually increases it. -Inpatient psychiatric hospitalization is the least intensive level of care consistent with the patient's safety. My finding is that were he to be discharged to the community at this time he would pose an eminent danger to himself. Inventory Assets Strengths: Intelligent. Positive work history. Concerned and supportive family. Motivated to certain forms of treatment. Needs: Willingness to accept that he is alcoholic. Alcoholism treatment, and participation actively in self-help groups. Recovery from symptoms of anxiety and depression. Sustained resolution of suicidality patient and suicidal threats. 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 Review of Systems Notes Denies suicidal ideation or passive wish today. Endorses long-standing abrupt mood lability/reactivity Sleep Information Total Hours of Sleep: 8 Meal Information Percent Meal Consumed - Breakfast: 100 Percent Meal Consumed - Lunch: 100 Percent Meal Consumed - Dinner: 100 Subjective Subjective Patient was seen & assessed and interval progress reviewed with Treatment Team. Per staff patient on 302 which will be up on the 16. He is attending groups. Rated mood a 6 out of 10 last evening. On interview this morning he reports continued believe that people overreacted to his recent comments but concedes that he was considering shooting himself at time of recent previous admission and that people are probably worried about him. He seems overly proud of a 2- week period of relative alcohol abstinence following his last psychiatric hospitalization reporting that he and his were successful briefly in finding other ways for him to cope such as taking walks and talking. He comments that his is "not the most sympathetic person." He is willing to acknowledge that alcohol has had destructive influences on his life but remains resistant to considering a formalized substance abuse treatment program. He adamantly and repeatedly states that he does not want to kill himself. He denies concerns or side effects associated with Lamictal initiation yesterday and dose escalation of Celexa. He denies concern for alcohol withdrawal symptoms. Physical Exam Psychiatric Orientation: oriented x 3 Apperance: + disheveled and appeared stated age Eye Contact: good eye contact Motor Behavior: + psychomotor agitation (Mild) Speech: normal rate/rhythm/volume of speech (Somewhat overproductive but not pressured) Affect: + labile affect "Pretty good" Thought Process: + circumstantial thought process (To mildly tangential) Thought Content: reality based without delusions (Continues to demonstrate significant denial and rationalizations) Suicidal Thoughts: denies suicidal thoughts, denies suicidal plan and denies suicidal intent Homicidal Thoughts: denies homicidal thoughts Hallucinations: no auditory hallucinations and no visual hallucinations Cognition: recent memory grossly intact Estimated Intelligence: average estimated intelligence Insight: + poor insight Judgement: + limited judgement Vital Signs (Past 24 Hours) Last Vital Signs Temp 36.9 C 05/02/19 06:30 Pulse 89 05/02/19 06:30 Resp 14 05/02/19 06:30 BP 124/89 05/02/19 06:30 Pulse Ox 96 04/30/19 17:46 Results & Data Current Inpatient Medications Current Inpatient Medications: Current Inpatient Medications Acetaminophen (Tylenol) 650 mg PO Q4H PRN PRN Reason: Headache or Minor Fever Stop: 05/30/19 16:44 Al Hydrox/Mg Hydrox/Simethicone (Maalox) 30 ml PO Q4H PRN PRN Reason: GI Upset Stop: 05/30/19 16:44 Bismuth Subsalicylate (Kaopectate) 15 ml PO PRN PRN PRN Reason: Loose Stool Stop: 05/30/19 16:44 Citalopram Hydrobromide (Celexa) 40 mg PO QAM [facility] Stop: 06/01/19 08:59 Last Admin: 05/02/19 08:46 Dose: 40 mg Documented by: Hydroxyzine HCl (Vistaril) 25 mg PO Q4H PRN PRN Reason: Anxiety Stop: 05/30/19 16:44 Hydroxyzine HCl (Vistaril) 50 mg PO HSZ PRN PRN Reason: Insomnia Stop: 05/30/19 16:44 Lamotrigine (Lamictal) 25 mg PO QAM [facility] Stop: 05/31/19 17:14 Last Admin: 05/02/19 08:46 Dose: 25 mg Documented by: Levetiracetam (Keppra) 500 mg PO BID [facility] Stop: 05/30/19 20:59 Last Admin: 05/02/19 08:46 Dose: 500 mg Documented by: Lorazepam (Ativan) 1 - 3 mg PO UD PRN; Protocol PRN Reason: EtoH Withdrawal AWSS 6-10+ Stop: 05/30/19 16:44 Last Admin: 05/01/19 12:26 Dose: 1 mg Documented by: Magnesium Hydroxide (Milk Of Magnesia) 30 ml PO DAILY PRN PRN Reason: Heartburn Stop: 05/30/19 16:44 Pantoprazole Sodium (Protonix) 40 mg PO QAM [facility] Stop: 05/31/19 08:59 Last Admin: 05/02/19 08:46 Dose: 40 mg Documented by: Ropinirole HCl (Requip) 0.5 mg PO DAILY@1900 [facility] Stop: 05/30/19 18:59 Last Admin: 05/01/19 19:42 Dose: 0.5 mg Documented by: Rosuvastatin Calcium (Crestor) 10 mg PO QAM [facility] Stop: 05/31/19 08:59 Last Admin: 05/02/19 08:46 Dose: 10 mg Documented by: Sodium Chloride ([place] Nasal) 1 - 2 sprays NA PRN PRN PRN Reason: Nasal Dryness/Congestion Stop: 05/30/19 16:44 Mental Health & Subst Abuse Tx Therapist Name of Therapist: None Secure Software Assessor Name of Secure Software Assessor: None Post Discharge Appointments Primary Care Physician Name Of Family Doctor: Matheus Riojas CPT Code CPT Code 82440
[2019-05-02] MEDS: ROPINIROLE HCL 0.25 MG TABLET PO SCH (19:09)
[2019-05-02] MEDS ORDERED: QUETIAPINE FUMARATE 25 MG TABLET PO SCH (22:10)
[2019-05-03] MEDS: levETIRAcetam 500 MG TAB PO SCH ×2 (08:30→21:26)
[2019-05-03] MEDS: PANTOprazole 40 MG TAB PO SCH (08:30)
[2019-05-03] MEDS: lamoTRIgine 25 MG TAB PO SCH (08:30)
[2019-05-03] MEDS: ROSUVASTATIN CALCIUM 10 MG TAB PO SCH (08:30)
[2019-05-03] MEDS: CITALOPRAM 40 MG TAB PO SCH (08:30)
--- NOTE | 2019-05-03 12:44 | Psychiatric Progress Note ---
Date of Service May 03, 2019 Impression / Recommendations Impression Patient demonstrating some brightening of affect, improving mood, increasing willingness to participate in substance abuse treatment program after discharge. He is not showing evidence of active withdrawal. He continues to deny ongoing suicidal or homicidal ideation or intent. (1) Major depression, recurrent: 05/01/19 -Increase citalopram to 40 mg daily. -Begin lamotrigine 25 mg daily for mood regulation, and titrate slowly. Material risks, including but not limited to risk of De Luna-Elio syndrome were reviewed with the patient and he indicated understanding. -The patient is being referred for group and activity therapies. He will also be provided with chemical dependency education. 05/02 Tolerating increased Celexa and Lamictal without difficulty Denying suicidal ideation or other safety concerns today 05/03 Affect more stable in last 24 hours. Appearing more euthymic and hopeful In considering Seroquel recently started as outpatient and reporting good effect for sleep we discussed consideration for using the Seroquel as mood augmentation rather than pursuing the lamotrigine titration to minimize polypharmacy and also appreciating that the sedating effect of the Seroquel at night may help to reduce alcohol consumption additionally. Common risks and benefits of atypical antipsychotics reviewed with patient including metabolic risks and tardive dyskinesia. Patient verbalized understanding and consented to the treatment (previously started by outpatient provider.) As above, reviewed QTC within normal limits last month and fasting labs also on record from last month for baseline. We will increase Seroquel to 75 mg nightly and discontinue Lamictal however that agent could be reconsidered pending need in the future. Patient is scheduled for family meeting tomorrow morning. If he continues to deny suicidal ideation, if his family meeting goes well, and if he has necessary aftercare arrangements made, patient requests primary team consider releasing him from his 302 tomorrow if clinically appropriate at that time. (2) Alcohol dependence: 05/01/19 -The patient remains in denial about the nature and degree of his alcohol dependence, and will need to be directly confronted regarding his tendency to use denial, intellectualization and rationalization as defenses. -The patient has been told that we are recommending residential chemical dependency treatment. At this point, the patient is saying that he will refuse any such treatment because he insists that alcohol is not a problem and that he can control his alcohol use on his own. 05/02 Insight facilitation regarding destructive role of alcohol use. Encouraged active participation in recovery protocol, trigger identification Encouraging consideration for substance abuse treatment program to follow psychiatric discharge 05/03 As above, now willing to accept referral for IOP which will be facilitated. (3) Suicidal behavior: 05/01/19 -The patient minimizes the fact that this is his second psychiatric hospitalization in 5 weeks following direct threats of suicide by intentional self-inflicted gunshot wound. Today, he tells me that although at the time of his psychiatric admission in early March, he had been experiencing suicidal ideation with suicidal intent, he tells us that this time he is not aware that he was having suicidal thoughts, and attempts to rationalize the fact that he evidently made threats of suicide to a friend by saying "he is a histrionic denny" and "I think she just jumped to conclusions." -The patient is currently denying suicidal ideation, but has trouble understanding that he has demonstrated that he is unable to roll his alcohol use on his own (as evidenced by the fact that he seems to have relapsed on alcohol in 2 weeks or less following his most recent previous discharge) and that, within this context, he has now twice made direct, credible threats of suicide by self inflicted gunshot wound. The fact that he was intoxicated on both occasions not only does not decrease the risk but, to the contrary, actually increases it. -Inpatient psychiatric hospitalization is the least intensive level of care consistent with the patient's safety. My finding is that were he to be discharged to the community at this time he would pose an eminent danger to himself. Inventory Assets Strengths: Intelligent. Positive work history. Concerned and supportive family. Motivated to certain forms of treatment. Needs: Willingness to accept that he is alcoholic. Alcoholism treatment, and participation actively in self-help groups. Recovery from symptoms of anxiety and depression. Sustained resolution of suicidality patient and suicidal threats. 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 Review of Systems Notes Denies dizziness, confusion, suicidal or homicidal ideation Sleep Information Total Hours of Sleep: 5.5 Meal Information Percent Meal Consumed - Breakfast: 100 Percent Meal Consumed - Lunch: 100 Percent Meal Consumed - Dinner: 100 Subjective Subjective Patient was seen & assessed and interval progress reviewed with Treatment Team. Per staff, patient has not been triggering the withdrawal protocol. His home dose of Seroquel 50 mg was restarted last evening at his request. His 302 is up on the at 1646. On interview patient reports he was started on the Seroquel in the past few weeks by his outpatient provider. Primarily for sleep indication with good efficacy. Reviewed potential risks and benefits associated with this class of medication including metabolic and motor. Patient verbalized understanding. Reviewed normal QTc interval on 03/23/2019 and had fasting labs in March as well. Patient demonstrates increased willingness for substance abuse program such as IOP today. He was struck by therapeutic conversation with nursing staff who illuminated for him that it was not so much avoidance of triggers that he should be focusing on but rather how he tends to react. He now perceives that he needs to improve his repertoire of coping strategies. He denies side effects associated with medications presently. He rates his mood 8- 9 out of 10 describes mood as hopeful. He asks if he could be considered for discharge tomorrow morning after his family meeting noting that his roommate is making him increasingly uncomfortable. Physical Exam Psychiatric Orientation: alert, oriented x 3 and cooperative Apperance: appropriately dressed and appropriately groomed Eye Contact: good eye contact Motor Behavior: steady gait and station and no abnormal motor movements Speech: normal rate/rhythm/volume of speech Affect: euthymic affect Mood: no depressed mood (Hopeful) Thought Process: goal directed thought process, + circumstantial thought process and + perseveration Thought Content: + cognitive distortions (Less evident today) and reality based without delusions Suicidal Thoughts: denies suicidal thoughts, denies suicidal plan and denies suicidal intent Homicidal Thoughts: denies homicidal thoughts Hallucinations: no auditory hallucinations and no visual hallucinations Cognition: recent memory grossly intact Insight: + fair insight Judgement: + fair judgement Vital Signs (Past 24 Hours) Last Vital Signs Temp 36.5 C 05/03/19 12:12 Pulse 60 05/03/19 12:12 Resp 14 05/03/19 12:12 BP 130/81 05/03/19 12:12 Pulse Ox 96 04/30/19 17:46 Results & Data Current Inpatient Medications Current Inpatient Medications: Current Inpatient Medications Acetaminophen (Tylenol) 650 mg PO Q4H PRN PRN Reason: Headache or Minor Fever Stop: 05/30/19 16:44 Al Hydrox/Mg Hydrox/Simethicone (Maalox) 30 ml PO Q4H PRN PRN Reason: GI Upset Stop: 05/30/19 16:44 Bismuth Subsalicylate (Kaopectate) 15 ml PO PRN PRN PRN Reason: Loose Stool Stop: 05/30/19 16:44 Citalopram Hydrobromide (Celexa) 40 mg PO QAM [facility] Stop: 06/01/19 08:59 Last Admin: 05/03/19 08:30 Dose: 40 mg Documented by: Hydroxyzine HCl (Vistaril) 25 mg PO Q4H PRN PRN Reason: Anxiety Stop: 05/30/19 16:44 Hydroxyzine HCl (Vistaril) 50 mg PO HSZ PRN PRN Reason: Insomnia Stop: 05/30/19 16:44 Levetiracetam (Keppra) 500 mg PO BID [facility] Stop: 05/30/19 20:59 Last Admin: 05/03/19 08:30 Dose: 500 mg Documented by: Lorazepam (Ativan) 1 - 3 mg PO UD PRN; Protocol PRN Reason: EtoH Withdrawal AWSS 6-10+ Stop: 05/30/19 16:44 Last Admin: 05/01/19 12:26 Dose: 1 mg Documented by: Magnesium Hydroxide (Milk Of Magnesia) 30 ml PO DAILY PRN PRN Reason: Heartburn Stop: 05/30/19 16:44 Pantoprazole Sodium (Protonix) 40 mg PO QAM [facility] Stop: 05/31/19 08:59 Last Admin: 05/03/19 08:30 Dose: 40 mg Documented by: Quetiapine Fumarate (Seroquel) 75 mg PO HS [facility] Stop: 06/02/19 21:59 Ropinirole HCl (Requip) 0.5 mg PO DAILY@1900 [facility] Stop: 05/30/19 18:59 Last Admin: 05/02/19 19:09 Dose: 0.5 mg Documented by: Rosuvastatin Calcium (Crestor) 10 mg PO QAM [facility] Stop: 05/31/19 08:59 Last Admin: 05/03/19 08:30 Dose: 10 mg Documented by: Sodium Chloride ([place] Nasal) 1 - 2 sprays NA PRN PRN PRN Reason: Nasal Dryness/Congestion Stop: 05/30/19 16:44 Mental Health & Subst Abuse Tx Psychiatrist Name of Psychiatrist: Gauri Fajardo Suzi Psychiatrist's Psychiatric Appointment Comment: [id number] [facility] Therapist Name of Therapist: None Special Diet Cook Name of Special Diet Cook: None Post Discharge Appointments Primary Care Physician Name Of Family Doctor: Matheus Riojas CPT Code CPT Code 17913
[2019-05-03] MEDS: ROPINIROLE HCL 0.25 MG TABLET PO SCH (18:45)
[2019-05-03] MEDS: QUETIAPINE FUMARATE 25 MG TABLET PO SCH (21:26)
[2019-05-04] MEDS: levETIRAcetam 500 MG TAB PO SCH ×2 (08:31→21:21)
[2019-05-04] MEDS: CITALOPRAM 40 MG TAB PO SCH (08:31)
[2019-05-04] MEDS: ROSUVASTATIN CALCIUM 10 MG TAB PO SCH (08:31)
[2019-05-04] MEDS: PANTOprazole 40 MG TAB PO SCH (08:31)
--- NOTE | 2019-05-04 09:21 | Psychiatric Progress Note ---
Date of Service May 04, 2019 Impression / Recommendations Impression Patient is denying ongoing suicidal ideation or intent, and reporting improved mood. He continues to show poor insight into his alcohol abuse, but is willing for IOP and is being referred. He had a difficult family meeting today and they confronted him about his drinking and behavior, and their concerns about his safety. He remains at risk for suicide if discharged prematurely. (1) Suicidal behavior: 05/01/19 -The patient minimizes the fact that this is his second psychiatric hospitalization in 5 weeks following direct threats of suicide by intentional self-inflicted gunshot wound. Today, he tells me that although at the time of his psychiatric admission in early March, he had been experiencing suicidal ideation with suicidal intent, he tells us that this time he is not aware that he was having suicidal thoughts, and attempts to rationalize the fact that he evidently made threats of suicide to a friend by saying "he is a histrionic denny" and "I think she just jumped to conclusions." -The patient is currently denying suicidal ideation, but has trouble understanding that he has demonstrated that he is unable to roll his alcohol use on his own (as evidenced by the fact that he seems to have relapsed on alcohol in 2 weeks or less following his most recent previous discharge) and that, within this context, he has now twice made direct, credible threats of suicide by self inflicted gunshot wound. The fact that he was intoxicated on both occasions not only does not decrease the risk but, to the contrary, actually increases it. -Inpatient psychiatric hospitalization is the least intensive level of care consistent with the patient's safety. My finding is that were he to be discharged to the community at this time he would pose an eminent danger to himself. Present on Admission?: Yes (2) Major depression, recurrent: 05/01/19 -Increase citalopram to 40 mg daily. -Begin lamotrigine 25 mg daily for mood regulation, and titrate slowly. Material risks, including but not limited to risk of De Luna-Elio syndrome were reviewed with the patient and he indicated understanding. -The patient is being referred for group and activity therapies. He will also be provided with chemical dependency education. 05/02 Tolerating increased Celexa and Lamictal without difficulty Denying suicidal ideation or other safety concerns today 05/03 Affect more stable in last 24 hours. Appearing more euthymic and hopeful In considering Seroquel recently started as outpatient and reporting good effect for sleep we discussed consideration for using the Seroquel as mood augmentation rather than pursuing the lamotrigine titration to minimize polypharmacy and also appreciating that the sedating effect of the Seroquel at night may help to reduce alcohol consumption additionally. Common risks and benefits of atypical antipsychotics reviewed with patient including metabolic risks and tardive dyskinesia. Patient verbalized understanding and consented to the treatment (previously started by outpatient provider.) As above, reviewed QTC within normal limits last month and fasting labs also on record from last month for baseline. We will increase Seroquel to 75 mg nightly and discontinue Lamictal however that agent could be reconsidered pending need in the future. Patient is scheduled for family meeting tomorrow morning. If he continues to deny suicidal ideation, if his family meeting goes well, and if he has necessary aftercare arrangements made, patient requests primary team consider releasing him from his 302 tomorrow if clinically appropriate at that time. 05/04 - Family meeting with and children today. - Reviewed that as a result of the involuntary commitment, he cannot own, purchase, or possess a firearm. He states his guns are locked up and he does not have access. - Continue quetiapine and citalopram. Present on Admission?: Yes (3) Alcohol dependence: 05/01/19 -The patient remains in denial about the nature and degree of his alcohol dep endence, and will need to be directly confronted regarding his tendency to use denial, intellectualization and rationalization as defenses. -The patient has been told that we are recommending residential chemical dependency treatment. At this point, the patient is saying that he will refuse any such treatment because he insists that alcohol is not a problem and that he can control his alcohol use on his own. 05/02 Insight facilitation regarding destructive role of alcohol use. Encouraged active participation in recovery protocol, trigger identification Encouraging consideration for substance abuse treatment program to follow psychiatric discharge 05/03 As above, now willing to accept referral for IOP which will be facilitated. 05/04 - Refer to [facility]. - No withdrawal symptoms, d/c AWSS. Present on Admission?: Yes Inventory Assets Strengths: Intelligent. Positive work history. Concerned and supportive family. Motivated to certain forms of treatment. Needs: Willingness to accept that he is alcoholic. Alcoholism treatment, and participation actively in self-help groups. Recovery from symptoms of anxiety and depression. Sustained resolution of suicidality patient and suicidal threats. 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 Chief Complaint "Ok, pretty good here...I made threats to go get a gun and hurt myself". Review of Systems Sleep Information Total Hours of Sleep: 6.5 Meal Information Percent Meal Consumed - Breakfast: 100 Percent Meal Consumed - Lunch: 100 Percent Meal Consumed - Dinner: 100 Subjective Subjective Patient was seen & assessed and interval progress reviewed with the treatment team. Staff report he has been reporting good mood here and minimizing presenting circumstances. He had a difficult family reunion this morning where his and children confronted him on his behavior and their concerns about his safety. On my assessment he says he doesn't really know why he's here, then says his friend called police because he made statements about getting a gun to kill himself, which he says he doesn't remember, and says his friend is "histrionic." He admits he was drinking heavily and doesn't recall much of what he said, and that his drinking is a problem. He says hospitalization "wasn't necessary, because I don't feel suicidal...was feeling sorry for myself, drank too much...maybe statements came out..." Admits he drove to a gun store last month with intent to buy a gun and shoot himself, and that his family "expressed their concerns about me" during his family meeting today. He then changes the subject to his brain injuries, and all the symptoms he's had from those. He reports his mood swings and anger outbursts started after his TIAs. He says he can't stop drinking once he starts, but never thought he had a problem with alcohol because "I can go without it for long periods" and because he didn't drink at work or while coaching. He says he is now realizing "there are different types of alcohol dependency," but is unwilling to go to inpatient substance abuse treatment, because "I feel claustrophobic, can't even get my shoelaces." Attempted to clarify the difference between inpatient rehab and acute psychiatric unit, and that rehab would be very different. He reports high anxiety and feels "panicky" at times. He reports improved sleep with quetiapine last night, and denies SI. He is willing for IOP. Physical Exam Psychiatric Orientation: alert, oriented x 3 and cooperative Apperance: appropriately dressed, appropriately groomed and appeared stated age Motor Behavior: steady gait and station and no abnormal motor movements Speech: normal rate/rhythm/volume of speech Affect: + anxious affect Mood: + depressed mood (upset after family meeting) and + anxious mood Thought Process: goal directed thought process (illogical thoughts process regarding alcoholism) Thought Content: reality based without delusions Suicidal Thoughts: denies suicidal thoughts Homicidal Thoughts: denies homicidal thoughts Hallucinations: no auditory hallucinations Cognition: recent memory grossly intact; + remote memory not intact (doesn't recall discussion we had during hospitalization last month) Insight: + poor insight Judgement: + poor judgement Vital Signs (Past 24 Hours) Last Vital Signs Temp 36.6 C 05/04/19 06:46 Pulse 82 05/04/19 06:49 Resp 18 05/04/19 06:46 BP 125/75 05/04/19 06:46 Pulse Ox 96 04/30/19 17:46 Results & Data Current Inpatient Medications Current Inpatient Medications: Current Inpatient Medications Acetaminophen (Tylenol) 650 mg PO Q4H PRN PRN Reason: Headache or Minor Fever Stop: 05/30/19 16:44 Al Hydrox/Mg Hydrox/Simethicone (Maalox) 30 ml PO Q4H PRN PRN Reason: GI Upset Stop: 05/30/19 16:44 Bismuth Subsalicylate (Kaopectate) 15 ml PO PRN PRN PRN Reason: Loose Stool Stop: 05/30/19 16:44 Citalopram Hydrobromide (Celexa) 40 mg PO QAM [facility] Stop: 06/01/19 08:59 Last Admin: 05/04/19 08:31 Dose: 40 mg Documented by: Hydroxyzine HCl (Vistaril) 25 mg PO Q4H PRN PRN Reason: Anxiety Stop: 05/30/19 16:44 Hydroxyzine HCl (Vistaril) 50 mg PO HSZ PRN PRN Reason: Insomnia Stop: 05/30/19 16:44 Levetiracetam (Keppra) 500 mg PO BID [facility] Stop: 05/30/19 20:59 Last Admin: 05/04/19 08:31 Dose: 500 mg Documented by: Magnesium Hydroxide (Milk Of Magnesia) 30 ml PO DAILY PRN PRN Reason: Heartburn Stop: 05/30/19 16:44 Pantoprazole Sodium (Protonix) 40 mg PO QAM [facility] Stop: 05/31/19 08:59 Last Admin: 05/04/19 08:31 Dose: 40 mg Documented by: Quetiapine Fumarate (Seroquel) 75 mg PO HS [facility] Stop: 06/02/19 21:59 Last Admin: 05/03/19 21:26 Dose: 75 mg Documented by: Ropinirole HCl (Requip) 0.5 mg PO DAILY@1900 [facility] Stop: 05/30/19 18:59 Last Admin: 05/03/19 18:45 Dose: 0.5 mg Documented by: Rosuvastatin Calcium (Crestor) 10 mg PO QAM [facility] Stop: 05/31/19 08:59 Last Admin: 05/04/19 08:31 Dose: 10 mg Documented by: Sodium Chloride ([place] Nasal) 1 - 2 sprays NA PRN PRN PRN Reason: Nasal Dryness/Congestion Stop: 05/30/19 16:44 Mental Health & Subst Abuse Tx Psychiatrist Name of Psychiatrist: Gauri Archer Psychiatrist's Psychiatric Appointment Comment: [address] [facility] Therapist Name of Therapist: None Java Security Engineer Name of Java Security Engineer: None Post Discharge Appointments Primary Care Physician Name Of Family Doctor: Matheus Riojas CPT Code CPT Code 88996
[2019-05-04] MEDS: ROPINIROLE HCL 0.25 MG TABLET PO SCH (20:41)
[2019-05-04] MEDS: QUETIAPINE FUMARATE 25 MG TABLET PO SCH (21:21)
[2019-05-05 06:35] VITALS: BP 110/75; TEMP 98.1
[2019-05-05] MEDS: PANTOprazole 40 MG TAB PO SCH (07:40)
[2019-05-05] MEDS: levETIRAcetam 500 MG TAB PO SCH (07:40)
[2019-05-05] MEDS: ROSUVASTATIN CALCIUM 10 MG TAB PO SCH (07:40)
[2019-05-05] MEDS: CITALOPRAM 40 MG TAB PO SCH (07:40)
[2019-05-05 09:20] VITALS: PULSE 85
--- NOTE | 2019-05-05 09:35 | Discharge Summary ---
Date of Service May 05, 2019 History of Present Illness The patient is a 58-year-old man who had been discharged from the behavioral health unit on 03/27/2019 following treatment for depression, alcohol dependence, and expressions of suicidal intent. The patient reports that subsequent to his discharge, he did not follow through on the recommendation that he participate in self-help groups (Alcoholic's Anonymous) and he also indicates that he did not adhere to the recommendation that he participate in formal chemical dependency treatment. Within that context, the patient acknowledges that he resumed use of alcohol approximately 2 weeks after discharge, although he also suggests that he was not "counting" the occasional drink that may have occurred earlier than 2 weeks following discharge. He tells me the admission was precipitated by the fact that he had a disagreement with his wifeand, after a g reat deal of coaxing, he acknowledged that the disagreement was related to his ongoing issues of alcohol. Although he had reported to the emergency room that he had not been drinking very much, he told me that he recalls little of what happened, other than he called a friend of his in [place] and told a friend that he was feeling "depressed." The patient went on to say that the problem is that the friend is "histrionic" [his word] and "jump to conclusions." In fact, the friend reported that the patient had made suicidal statements and contacted the local police. The patient initially asserted that he was certainly did not threaten suicide to the friend, but then contradicted himself by saying that he was unable to recall what he had said. He reports that the local police came to his door, and he says that he was "under the influence," and, again, does not recall what he said. The police report and the petitioning statement indicates that the patient made a direct threat of suicide by saying that he was going to purchase a gun and "off" himself with that. The patient minimizes this, notes that the expression "off" is not one that he uses to mean "kill" and tries to explain that the policewoman possibly misunderstood. His report of alcohol consumption is not considered reliable. At one point during the admission interview the patient reports that he does not necessarily consider himself to be "alcoholic" because he does not "crave" alcohol and does not "drink every day." When it was pointed out to him that he has been scoring on the AWWS, he acknowledges that "well, may be was having a little bit of withdrawal." Patient reports that his emotional pattern is to feel "pretty good. Positive. Not depressed," and then some form of emotional trigger, such as a disagreement in the family or and expressed financial concern can cause precipitate a rapid descent into anxious distress and depression. He reports that it is during these times that he feels compelled to consume alcohol, and describes his alcohol use as "self medication." However, this report is largely and consistent with the known pattern of the patient's alcohol use Physical Exam Psychiatric Orientation: alert, oriented x 3 and cooperative Apperance: appropriately dressed, appropriately groomed and appeared stated age Eye Contact: good eye contact Motor Behavior: steady gait and station and no abnormal motor movements Speech: normal rate/rhythm/volume of speech Affect: euthymic affect and mood congruent with affect "good." Thought Process: goal directed thought process Thought Content: reality based without delusions Suicidal Thoughts: denies suicidal thoughts Homicidal Thoughts: denies homicidal thoughts Hallucinations: no auditory hallucinations and no visual hallucinations Cognition: recent memory grossly intact, remote memory grossly intact, attention grossly intact and language grossly intact Estimated Intelligence: consistent with education level Insight: + poor insight Judgement: + fair judgement Vital Signs (Past 24 Hours) Last Vital Signs Temp 36.7 C 05/05/19 09:19 Pulse 85 05/05/19 09:19 Resp 20 05/05/19 09:19 BP 110/75 05/05/19 09:19 Pulse Ox 96 05/05/19 09:19 Principal Diagnosis Major depressive disorder, recurrent, severe without psychosis Alcohol use disorder Narcissistic personality traits Psychiatric Data The patient was hospitalized on our unit for 5 days. On admission, he minimized his alcohol use and utilize defense mechanisms of denial, intellectualization, rationalization. He would not accept recommendations for substance abuse treatment, stating he could achieve sobriety on his own. He was initially continued on citalopram which was increased to 40 mg daily, and started on lamotrigine for mood regulation, as he reported mood swings/lability as his primary concern. It was later discovered that he was prescribed quetiapine as an outpatient, and that had been helpful for sleep, so it was restarted and in creased to 75 mg at bedtime, and lamotrigine was discontinued to avoid polypharmacy/duplicate agents for mood stabilization. The risks of ongoing alcohol use and recommendations for inpatient substance abuse treatment were reviewed, and he declined. Throughout his hospitalization, motivational interviewing and insight facilitation were utilized as well as recovery protocol, and he was able to explore his pattern of drinking, triggers, and potential ways to cope with urges to drink. He had a family meeting with his and adult children, during which she endorsed hopefulness that his current medication regimen will help stabilize mood, which will then lead to decreased alcohol use. His family confronted him with some of their concerns regarding his drinking, including his behaviors while intoxicated, the means he goes to in order to obtain alcohol, and there is supportive him attending inpatient rehab. Patient became frustrated during the meeting, and ultimately agreed to a refer ral for intensive outpatient substance abuse treatment.His mood, sleep, and anxiety all improved during hospitalization, and he consistently denied suicidal thoughts. He did appear to develop improved insight into his alcohol use disorder, and worked on a plan to maintain sobriety after discharge. Day of Discharge Assessment Staff report the patient is going to groups and participating, agreed to IOP for alcoholism and was referred to [facility]. Patient reports he is "feeling good, ready to go!" He denies suicidal thoughts, thoughts of harming himself or anyone else, and "bad thoughts." He reports good mood and hope for the future. He recognizes that he "does really well in here, but it's out there, where the rubber meets the road, that I have the problem." He states he thinks he needs "more support" and is willing for IOP, hoping for treatment 3-4 days/week. He is able to identify triggers that lead to worsening mood and urges to drink, including being alone and "stress," and his coping skills, including open communication with others, participation in groups/outpatient treatment, going for a walk, and engaging in activities he enjoys. He is able to review his discharge safety plan, including not buying alcohol or keeping it in the house, and had hidden 2-3 bottles of liquor in the house, but his and son removed it while he was here. He typically hides his drinking from his family, as they are concerned and support him getting sober. Again discussed inpatient substance abuse treatment, and he is willing to consider it if he is unable to maintain sobriety as an outpatient. He does not believe he needs medication assisted treatment, such as naltrexone, as he does not see himself as a "true alcoholic," because he does not "need it every day." He remains unwilling to engage in AA, stating he has never tried it but "I don't agree I'm powerless against alcohol." He also states he doesn't have anything in common with the people in AA, as he is not "hurting for money," and doesn't think he would feel connected to the other people there. He is willing to consider "trying" [facility], and reports good support from his hoahaoism. 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 Reports he's noticed increased word finding difficulties and cognitive slowing as his alcohol intake increased, and is motivated to maintain sobriety to improve cognition. Transition of Care Transition Of Care Record: was reviewed with the patient Advance Directives Advance Directives Information Provided: Yes Advance Directives: No Mental Health Advance Directive: No Advance Directives on File: No Living Will: No Power of Gum Sprayer: No Advance Directives Reason:: Declines as Mental Health Visit. Risk Factors Assessment Risk mitigated by admission to the inpatient unit, adjusting medications to target depression, education regarding his diagnoses and the recommended treatment, review of treatment recommendations for alcoholism (inpatient rehab, which he declined), offering MAT for alcohol use disorder (which he declined), involving him in groups and therapy, working on healthy coping skills and a discharge safety plan, family meeting with his and children, and referring him for intensive outpatient treatment for alcohol use disorder. He is reporting improved mood and has consistently denied suicidal ideation here. Although he continues to have limited insight into his addiction, he is more accepting of the idea that his drinking is a problem, and is willing to accept a higher level of care. His family removed his hidden stash of liquor from the home, and confirmed that the patient does not have access to guns in the home. The patient has been informed that due to his involuntary commitment, he cannot legally own, purchase, or possess firearms in [place]. He is eating and sleeping well, taking medications and tolerating them without side effects, and is future oriented, talking about ways to find meaning in skilled nursing and to utilize the supports he has in the community. He is involuntary commitment will today, and as he no longer meets criteria for involuntary treatment, is requesting discharge, and is no longer at acute risk of harm to himself, he can be managed as an outpatient at this time. He is at long-term elevated risk of suicide given his risk factors of male sex, race, age, history of brain injury, depression, substance abuse, and multiple inpatient hospitalizations, but these risk factors are not able to be mitigated by further inpatient treatment. 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) Stable Relationships: Yes Supportive Family: Yes Good Rapport with Provider: Yes Absence of Any Risk Factors Above: No Tobacco Cessation at Discharge Tobacco Cessation Medication Prescribed at Discharge: Not Applicable/Non-Smoker Total Time Total Time Spent: Greater Than 30 Minutes Total Time Includes: Examination of the patient, Discharge Planning and Medication Reconciliation Discharge Data Lab Results 04/30/19 04/30/19 04/30/19 07:04 07:04 07:26 WBC 5.49 RBC 5.25 Hgb 17.0 Hct 47.1 MCV 89.7 MCH 32.4 MCHC 36.1 H RDW Std Deviation 44.2 RDW Coeff of Antonio 13.5 Plt Count 134 MPV 9.5 Immature Gran % (Auto) 0.4 Neut % (Auto) 52.6 Lymph % (Auto) 35.7 [place] % (Auto) 9.1 Eos % (Auto) 1.8 Baso % (Auto) 0.4 Immature Gran # (Auto) 0.02 Neut # (Auto) 2.89 Lymph # (Auto) 1.96 [place] # (Auto) 0.50 Eos # (Auto) 0.10 Baso # (Auto) 0.02 Sodium Potassium Chloride Carbon Dioxide Anion Gap BUN Creatinine Est Cr Clr Drug Dosing Est GFR ( Amer) Est GFR (Non-Af Amer) BUN/Creatinine Ratio Glucose Calcium Total Bilirubin AST ALT Alkaline Phosphatase Total Protein Albumin Globulin Albumin/Globulin Ratio TSH Urine Color Yellow Urine Appearance Clear Urine pH 5.0 Ur Specific [place] 1.021 Urine Protein Negative Urine Glucose (UA) Negative Urine Ketones Negative Urine Blood Negative Urine Nitrite Negative Urine Bilirubin Negative Urine Urobilinogen Negative Ur Leukocyte Esterase Negative Salicylates Urine Opiates Screen Neg Ur Methadone, Qual Neg Acetaminophen Urine Barbiturates Neg Ur Phencyclidine (PCP) Neg U Amphetamin/Meth Scrn Neg MDMA (Ecstasy) Screen Neg U Benzodiazepines Scrn Neg Ur Cocaine Metabolite Neg U Marijuana (THC) Screen Neg Ethyl Alcohol mg/dL 04/30/19 04/30/19 04/30/19 07:26 07:26 07:26 WBC RBC Hgb Hct MCV MCH MCHC RDW Std Deviation RDW Coeff of Antonio Plt Count MPV Immature Gran % (Auto) Neut % (Auto) Lymph % (Auto) [place] % (Auto) Eos % (Auto) Baso % (Auto) Immature Gran # (Auto) Neut # (Auto) Lymph # (Auto) [place] # (Auto) Eos # (Auto) Baso # (Auto) Sodium 143 Potassium 3.3 L Chloride 108 H Carbon Dioxide 22 Anion Gap 12.0 H BUN 11 Creatinine 0.85 Est Cr Clr Drug Dosing 122.4 Est GFR ( Amer) 109.8 Est GFR (Non-Af Amer) 94.7 BUN/Creatinine Ratio 13.0 Glucose 100 H Calcium 8.5 Total Bilirubin 0.4 AST 49 H ALT 41 Alkaline Phosphatase 100 Total Protein 8.2 Albumin 3.7 Globulin 4.5 H Albumin/Globulin Ratio 0.8 L TSH 3.120 Urine Color Urine Appearance Urine pH Ur Specific [place] Urine Protein Urine Glucose (UA) Urine Ketones Urine Blood Urine Nitrite Urine Bilirubin Urine Urobilinogen Ur Leukocyte Esterase Salicylates 5.0 Urine Opiates Screen Ur Methadone, Qual Acetaminophen < 2 L Urine Barbiturates Ur Phencyclidine (PCP) U Amphetamin/Meth Scrn MDMA (Ecstasy) Screen U Benzodiazepines Scrn Ur Cocaine Metabolite U Marijuana (THC) Screen Ethyl Alcohol mg/dL 274.1 H Hospital Course (1) Suicidal behavior: 05/01/19 -The patient minimizes the fact that this is his second psychiatric hospitalization in 5 weeks following direct threats of suicide by intentional self-inflicted gunshot wound. Today, he tells me that although at the time of his psychiatric admission in early March, he had been experiencing suicidal ideation with suicidal intent, he tells us that this time he is not aware that he was having suicidal thoughts, and attempts to rationalize the fact that he evidently made threats of suicide to a friend by saying "he is a histrionic denny" and "I think she just jumped to conclusions." -The patient is currently denying suicidal ideation, but has trouble understanding that he has demonstrated that he is unable to roll his alcohol use on his own (as evidenced by the fact that he seems to have relapsed on alcohol in 2 weeks or less following his most recent previous discharge) and that, with in this context, he has now twice made direct, credible threats of suicide by self inflicted gunshot wound. The fact that he was intoxicated on both occasions not only does not decrease the risk but, to the contrary, actually increases it. -Inpatient psychiatric hospitalization is the least intensive level of care consistent with the patient's safety. My finding is that were he to be discharged to the community at this time he would pose an imminent danger to himself. (2) Major depression, recurrent: 05/01/19 -Increase citalopram to 40 mg daily. -Begin lamotrigine 25 mg daily for mood regulation, and titrate slowly. Material risks, including but not limited to risk of De Luna-Elio syndrome were reviewed with the patient and he indicated understanding. -The patient is being referred for group and activity therapies. He will also be provided with chemical dependency education. 05/02 Tolerating increased Celexa and Lamictal without difficulty Denying suicidal ideation or other safety concerns today 05/03 Affect more stable in last 24 hours. Appearing more euthymic and hopeful In considering Seroquel recently started as outpatient and reporting good effect for sleep we discussed consideration for using the Seroquel as mood augmentation rather than pursuing the lamotrigine titration to minimize polypharmacy and also appreciating that the sedating effect of the Seroquel at night may help to reduce alcohol consumption additionally. Common risks and benefits of atypical antipsychotics reviewed with patient including metabolic risks and tardive dyskinesia. Patient verbalized understanding and consented to the treatment (previously started by outpatient provider.) As above, reviewed QTC within normal limits last month and fasting labs also on record from last month for baseline. We will increase Seroquel to 75 mg nightly and discontinue Lamictal however that agent could be reconsidered pending need in the future. Patient is scheduled for family meeting tomorrow morning. If he continues to deny suicidal ideation, if his family meeting goes well, and if he has necessary aftercare arrangements made, patient requests primary team consider releasing him from his 302 tomorrow if clinically appropriate at that time. 05/04 - Family meeting with and children today. - Reviewed that as a result of the involuntary commitment, he cannot own, purchase, or possess a firearm. He states his guns are locked up and he does not have access. - Continue quetiapine and citalopram. 05/05 - Narcissistic traits, rule out NPD. - Citalopram and quetiapine were increased - no Rx issued as he reports he has home supply. F/u at [facility] with Suzi OSWALD on 05/12/19. (3) Alcohol dependence: 05/01/19 -The patient remains in denial about the nature and degree of his alcohol dependence, and will need to be directly confronted regarding his tendency to use denial, intellectualization and rationalization as defenses. -The patient has been told that we are recommending residential chemical dependency treatment. At this point, the patient is saying that he will refuse any such treatment because he insists that alcohol is not a problem and that he can control his alcohol use on his own. 05/02 Insight facilitation regarding destructive role of alcohol use. Encouraged active participation in recovery protocol, trigger identification Encouraging consideration for substance abuse treatment program to follow psychiatric discharge 05/03 As above, now willing to accept referral for IOP which will be facilitated. 05/04 - Refer to [facility]. - No withdrawal symptoms, d/c AWSS. 05/05 - Reviewed triggers for urges to drink, and plan to cope with those while avoiding alcohol. Reviewed risks of ongoing alcohol use, including medical sequelae, worsening mood, accidental or intentional self injury, relationship discord, legal, etc. Reviewed recommendations for IOP, and inpatient rehab if that is not sufficient. Referred to [facility] with initial evaluation 05/07/19. - Patient is declining naltrexone or other medication assisted treatment for alcoholism, but recommend ongoing discussion and use of medications as indicated to decrease cravings. 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 Groups Mon, Wed, & Fri from 10am-1pm. Partial or Psych Rehab Appointment Comment: [address] [employer] [place] [address], [place] Smoking Cessation Counseling Tobacco Cessation Medication Prescribed at Discharge: Not Applicable/Non-Smoker Contact Information Discharge Discharge Address[address] [address] [place], [place] [id number] Discharge Plan Discharge Items Patient Disposition: Home - Self-Care Reason For Visit: MDR Discharge Diagnosis: Major depressive disorder, recurrent. Alcohol use disorder. Discharge Goals: Decrease discomfort, Improve disease control, Improve function, Learn about illness, Prevent disease, Specific goals and Therapeutic intervention Specific Goals: Refer for substance abuse treatment Activity: Per 'Additional Instructions' section Non-emergency contact: Primary Care Provider, Psychiatrist and Therapist Call non-emergency contact if: you have any medication questions and your symptoms worsen Follow-up/Referrals: Matheus Riojas [Primary Care Provider] - Diet: Regular Addtl Provider Instructions: SPECIAL CARE INSTRUCTIONS: 1. Follow through with your scheduled aftercare appointments. If unable to keep an appointment, please call to reschedule. 2. Take your medication only as prescribed. Medication should not be changed or stopped without the approval of your doctor. In the event of worsening symptoms or concerns about side effects, contact your doctor immediately. 3. Utilize new healthy coping skills, anger management skills, and stress management skills learned during your hospitalization. Journal feelings and process them with a support person. Identify stressors or situations that may result in relapse, deterioration or inappropriate behaviors and develop a plan to deal with those issues. 4. If your coping skills are ineffective and you are in crisis, contact your outpatient providers for direction. If unable to reach your providers, please call the CAN HELP LINE AT or go to the closest Emergency Room. 5. Avoid alcohol and un-prescribed drugs. 6. You have been provided with the Mental Health Advance Directives Pamphlet for your review. AFTERCARE APPOINTMENTS: * Please call your insurance company prior to your scheduled appointment to confirm your aftercare providers are covered. Take your insurance information to your appointments. WHO TO CALL AND WHEN: Medical Emergencies: For questions or emergencies related to your hospital stay, please contact the Inpatient Behavioral Health Unit at [phone]. A train gate attendant is on-call 13/05 for the Behavioral Health Unit for emergencies At any time you feel your situation is an emergency, you may also call 911 immediately. Your Doctors Instructions noted above were prepared by provider Daysi Douglass MD. Prescriptions: Continued levetiracetam 500 mg Tablet 500 mg PO BID RF: 0 pantoprazole 40 mg Tablet,Delayed Release (Dr/Ec) 40 mg PO QAM RF: 0 epinephrine [EpiPen] 0.3 mg/0.3 mL Auto-Injector 0.3 mg IM DIRECTED PRN (Reason: Allergic Reaction) RF: 0 ropinirole 0.25 mg Tablet 0.5 mg PO DAILY@1900 Qty: 1 RF: 0 propranolol 20 mg tablet 20 mg PO DAILY PRN (Reason: Anxiety) Qty: 10 RF: 0 rosuvastatin [Crestor] 10 mg Tablet 10 mg PO QAM RF: 0 Changed citalopram 20 mg Tablet 40 mg PO QAM Qty: 1 RF: 0 quetiapine 50 mg tablet 75 mg PO HS Qty: 0 RF: 0 Discontinued hydroxyzine HCl 25 mg Tablet 25 mg PO Q4H PRN (Reason: Anxiety) Qty: 20 RF: 2 Stand-Alone Forms: [facility] Discharge Orders: Discharge Order (Routine); Ordered 05/05/19 Ordered By: Daysi Douglass Admission Data Admit Date/Time: 04/30/19 16:45 Attending Provider: Gaudencio Cabrera Admit Provider: Daysi Douglass Primary Care Provider: Matheus Riojas Service: Psychiatry Other Interventions: Discharge Summary Assessment (RN) Last Done: 05/05/19 09:19 PSY Interdisciplinary Discharge Planning Last Done: 05/05/19 11:05 Pending Studies at Discharge: No
== END 2019-05-05 11:37 | disposition home or self-care (01) | DRG 885 ==
LOC: ED 06:53 → 3S 16:45

== ENCOUNTER 2020-03-15 15:01 | Inpatient (IN) ==
--- NOTE | 2020-03-15 15:57 | Emergency Department Note ---
History of Present Illness General Chief Complaint: Mental Health Evaluation Stated Complaint: MR Time Seen by Provider: 03/15/20 15:24 Source: patient Mode of arrival: ambulatory Limitations: intoxication History of Present Illness Provider complaint: suicidal ideation and feels depressed Onset (ago): week(s) 1 Duration: constant History of same: Yes Relieved By: + none Exacerbated By: + alcohol Context: + recent alcohol abuse and + significant life stressor Associated psychiatric symptoms: + depression and + suicidal ideation Associated symptoms: + denies other symptoms Treatments prior to arrival: + none If self harm: + admits thoughts of self harm and + has plan This is a 59-year-old male who presents to the ED with a chief complaint of depression and suicidal ideation. The patient has a mental health history. He is also an alcoholic. The patient states that over the past several days he has been drinking about 1/5 of vodka a day. The patient states that he actually drove to a gun store to buy a gun with the intention of killing himself. He states that he recently found out that his has her own checking account. He did not give any other details but he was unaware of her "other life". The patient states that he talk to Deisi from [facility] and was referred here. The patient has no other complaints. He states that he has been through alcohol rehab in the past. Home Medications Home Medications Medication Instructions Recorded Confirmed Type rosuvastatin [Crestor] 10 mg PO QAM 09/13/18 03/15/20 History epinephrine [EpiPen] 0.3 mg IM DIRECTED PRN 03/21/19 03/15/20 History pantoprazole 40 mg PO QAM 03/21/19 03/15/20 History clonidine HCl 0.1 mg tablet 0.1 mg PO DAILY tab 09/01/19 03/15/20 History hydroxyzine pamoate 50 mg capsule 50 mg PO DAILY cap 09/01/19 03/15/20 History buspirone 5 mg tablet 5 mg PO BID tab 11/11/19 03/15/20 History citalopram 40 mg tablet 40 mg PO DAILY tab 11/11/19 03/15/20 History doxepin 50 mg capsule 100 mg PO HS 11/11/19 03/15/20 History melatonin 5 mg capsule 5 mg PO HS 11/11/19 03/15/20 History propranolol 40 mg tablet 40 mg PO BID 11/11/19 03/15/20 History quetiapine 100 mg tablet 100 mg PO HS 11/11/19 03/15/20 History ropinirole 2 mg tablet 2 mg PO .COMPLEX 90 Days #90 tab 11/11/19 03/15/20 Rx levetiracetam 500 mg tablet 500 mg PO BID 30 Days #60 tab 01/25/20 03/15/20 Rx fenofibrate nanocrystallized 145 mg PO HS 03/15/20 03/15/20 History Allergies Allergy/AdvReac Type Severity Reaction Status Date / Time bee venom protein (honey bee) Allergy Severe ANAPHYLAXIS Verified 03/15/20 16:38 cat dander Allergy Intermediate Itchy/Watery Verified 03/15/20 16:38 Eyes, Itchy throat tamsulosin Allergy Intermediate Hives Verified 03/15/20 16:38 Past Med/Surg History Medical History Alcohol abuse Anxiety (Chronic) Depression Diverticulosis (Chronic) Hyperlipidemia (Chronic) Hypertension (Chronic) Left arm weakness Panic attacks Prostate cancer (Chronic 07/30/16) "STAGING: Prostate, adenocarcinoma, triny 3 + 4, PSA 4.65, cT1c, group IIA Prostate gland size by TRUS - 25.1 TREATMENT: 1. Status post prostate seed implant as boost 11/06/2016 43 seeds were placed 8500 cGy 2. Status post completion of IMRT/IGRT completed 01/28/2017 received 4500 cGy" On 12/06/16 15:38 Tricia Solorio wrote "STAGING: Prostate, adenocarcinoma, triny 3 + 4, PSA 4.65, cT1c, group IIA Prostate gland size by TRUS - 25.1 TREATMENT: 1. 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 Beliefs That Will Affect Care: None Feels Safe at Home: No Smoking Status: Current every day smoker Tobacco Type: cigars ; Review of Systems A total of 10 systems reviewed and were otherwise negative Physical Exam Vital Signs Vital Signs - 24 hr 03/15/20 15:09 03/15/20 17:02 03/15/20 19:25 Temperature 36.8 C Temperature Source Oral Pulse Rate 86 Pulse Rate [Finger] 80 90 Pulse Rhythm [Finger] Regular Respiratory Rate 18 20 18 Respiratory Effort / Characteristics Non-Labored Non-Labored Spontaneous Respiratory Depth Normal Normal Respiratory Pattern Regular Blood Pressure 145/79 H Blood Pressure [Left Arm] 136/88 127/71 Blood Pressure Mean 101 Blood Pressure Mean [Left Arm] 104 89 Blood Pressure Position [Left Arm] Sitting Pulse Oximetry 96 96 98 Oxygen Delivery Method Room Air Room Air Room Air Sepsis Recent Fever Within 48 Hours No Sepsis Action Taken by Nursing No Action Required CONSTITUTIONAL/VITAL SIGNS: Reviewed / noted above. GENERAL: Non-toxic in appearance. INTEGUMENTARY: Warm, dry, and [place]. HEAD: Normocephalic. EYES: without scleral icterus or trauma. ENT/OROPHARYNX: clear and moist. LYMPHADENOPATHY/NECK: Is supple without lymphadenopathy or meningismus. RESPIRATORY: Lungs clear and equal. CARDIOVASCULAR: Regular rate and rhythm. GI/ABDOMEN: Soft and nontender. No organomegaly or pulsatile mass. No rebound or guarding. Normal bowel sounds. EXTREMITIES: Warm and well perfused. BACK: No CVA tenderness. NEUROLOGICAL: Intact without focal deficits. PSYCHIATRIC: Depressed/suicidal . MUSCULOSKELETAL: Normally developed with good muscle tone. TRIAGE NURSING DOCUMENTATION REVIEWED. Course Administered Medications Discontinued Medications Lorazepam (Ativan) 1 mg PO NOW STA Stop: 03/15/20 17:44 Last Admin: 03/15/20 17:47 Dose: 1 mg Documented by: [id number] Lorazepam (Ativan) 1 mg PO NOW STA Stop: 03/15/20 20:44 Last Admin: 03/15/20 20:47 Dose: 1 mg Documented by: [id number] Potassium Chloride (Klor-Con M20) 40 meq PO NOW STA Stop: 03/15/20 21:59 Last Admin: 03/15/20 22:08 Dose: 40 meq Documented by: [id number] Medical Decision Making Differential Diagnosis + acute psychosis, + suicidal ideation, + depression, + drug-induced psychotic disorder, + anxiety, + mood disorder, + panic attack, + infection, + hypoglycemia, + electrolyte abnormalities and + toxicologic Medical Records Attestation: I reviewed the patient's medical records. Home Medications Current Medication List: was personally reviewed by me Laboratory Data Attestation: I reviewed the patient's lab results. Result diagrams: 03/15/20 15:31 03/15/20 15:31 Lab Results 03/15/20 03/15/20 03/15/20 Range/Units 15:25 15:25 15:31 WBC 3.87 L (4.8-10.8) K/uL RBC 4.38 L (4.7-6.1) M/uL Hgb 14.1 (14.0-18.0) g/dL Hct 38.9 L (42-52) % MCV 88.8 (80-100) fL MCH 32.2 (25-34) pg MCHC 36.2 H (32-36) g/dL RDW Std Deviation 43.9 (36.4-46.3) fL RDW Coeff of Antonio 13.4 (11.5-14.5) % Plt Count 92 L (130-400) K/uL MPV 9.8 (7.4-10.4) fL Immature Gran % (Auto) 0.3 % Neut % (Auto) 45.2 % Lymph % (Auto) 38.5 % [place] % (Auto) 11.9 % Eos % (Auto) 3.6 % Baso % (Auto) 0.5 % Immature Gran # (Auto) 0.01 (0.00-0.02) K/uL Neut # (Auto) 1.75 (1.4-6.5) K/uL Lymph # (Auto) 1.49 (1.2-3.4) K/uL [place] # (Auto) 0.46 (0.11-0.59) K/uL Eos # (Auto) 0.14 (0-0.5) K/uL Baso # (Auto) 0.02 (0-0.2) K/uL Pappenheimer Bodies 1+ Sodium (136-145) mmol/L Potassium (3.5-5.1) mmol/L Chloride (98-107) mmol/L Carbon Dioxide (21-32) mmol/L Anion Gap (3-11) BUN (7-18) mg/dl Creatinine (0.6-1.4) mg/dl Est Cr Clr Drug Dosing ml/min Est GFR ( Amer) Est GFR (Non-Af Amer) BUN/Creatinine Ratio (10-20) Glucose (70-99) mg/dl Calcium (8.5-10.1) mg/dl Total Bilirubin (0.2-1) mg/dl AST (15-37) U/L ALT (12-78) U/L Alkaline Phosphatase (45-117) U/L Total Protein (6.4-8.2) gm/dl Albumin (3.4-5.0) gm/dl Globulin (2.5-4.0) gm/dl Albumin/Globulin Ratio (0.9-2) TSH (0.300-4.500) uIu/ml Specimen Hemolysis Urine Color Dark Yellow Urine Appearance Clear (Clear) Urine pH 6.0 (4.5-7.5) Ur Specific [place] 1.019 (1.000-1.030) Urine Protein Negative (Negative) Urine Glucose (UA) Negative (Negative) Urine Ketones Trace H (Negative) Urine Blood Negative (Negative) Urine Nitrite Negative (Negative) Urine Bilirubin Negative (Negative) Urine Urobilinogen Positive H (Negative) Ur Leukocyte Esterase Negative (Negative) Salicylates (2.8-20) mg/dl Urine Opiates Screen Neg (Neg) Ur Methadone, Qual Neg (Neg) Acetaminophen (10-30) ug/ml Urine Barbiturates Neg (Neg) Ur Phencyclidine (PCP) Neg (Neg) U Amphetamin/Meth Scrn Neg (Neg) MDMA (Ecstasy) Screen Neg (Neg) U Benzodiazepines Scrn Neg (Neg) Ur Cocaine Metabolite Neg (Neg) U Marijuana (THC) Screen Neg (Neg) Ethyl Alcohol mg/dL (0-3) mg/dl 03/15/20 03/15/20 03/15/20 Range/Units 15:31 15:31 15:31 WBC (4.8-10.8) K/uL RBC (4.7-6.1) M/uL Hgb (14.0-18.0) g/dL Hct (42-52) % MCV (80-100) fL MCH (25-34) pg MCHC (32-36) g/dL RDW Std Deviation (36.4-46.3) fL RDW Coeff of Antonio (11.5-14.5) % Plt Count (130-400) K/uL MPV (7.4-10.4) fL Immature Gran % (Auto) % Neut % (Auto) % Lymph % (Auto) % [place] % (Auto) % Eos % (Auto) % Baso % (Auto) % Immature Gran # (Auto) (0.00-0.02) K/uL Neut # (Auto) (1.4-6.5) K/uL Lymph # (Auto) (1.2-3.4) K/uL [place] # (Auto) (0.11-0.59) K/uL Eos # (Auto) (0-0.5) K/uL Baso # (Auto) (0-0.2) K/uL [place]heimer Bodies Sodium 140 (136-145) mmol/L Potassium 3.2 L (3.5-5.1) mmol/L Chloride 105 (98-107) mmol/L Carbon Dioxide 27 (21-32) mmol/L Anion Gap 8.0 (3-11) BUN 7 (7-18) mg/dl Creatinine 0.93 (0.6-1.4) mg/dl Est Cr Clr Drug Dosing 97.0 ml/min Est GFR ( Amer) 102.3 Est GFR (Non-Af Amer) 88.3 BUN/Creatinine Ratio 7.9 L (10-20) Glucose 112 H (70-99) mg/dl Calcium 8.1 L (8.5-10.1) mg/dl Total Bilirubin 0.7 (0.2-1) mg/dl AST 130 H (15-37) U/L ALT 73 (12-78) U/L Alkaline Phosphatase 116 (45-117) U/L Total Protein 8.1 (6.4-8.2) gm/dl Albumin 3.4 (3.4-5.0) gm/dl Globulin 4.7 H (2.5-4.0) gm/dl Albumin/Globulin Ratio 0.7 L (0.9-2) TSH 1.780 (0.300-4.500) uIu/ml Specimen Hemolysis Urine Color Urine Appearance (Clear) Urine pH (4.5-7.5) Ur Specific [place] (1.000-1.030) Urine Protein (Negative) Urine Glucose (UA) (Negative) Urine Ketones (Negative) Urine Blood (Negative) Urine Nitrite (Negative) Urine Bilirubin (Negative) Urine Urobilinogen (Negative) Ur Leukocyte Esterase (Negative) Salicylates 4.4 (2.8-20) mg/dl Urine Opiates Screen (Neg) Ur Methadone, Qual (Neg) Acetaminophen < 2 L (10-30) ug/ml Urine Barbiturates (Neg) Ur Phencyclidine (PCP) (Neg) U Amphetamin/Meth Scrn (Neg) MDMA (Ecstasy) Screen (Neg) U Benzodiazepines Scrn (Neg) Ur Cocaine Metabolite (Neg) U Marijuana (THC) Screen (Neg) Ethyl Alcohol mg/dL 207.0 H (0-3) mg/dl Blood Pressure Blood Pressure Findings: Elevated blood pressure Blood Pressure Disposition: Referred to patients primary care provider MDM Narrative This is a 59-year-old male who presents to the ED with a chief complaint of depression and suicidal ideation. The patient has a mental health history. He is also an alcoholic. The patient states that over the past several days he has been drinking about 1/5 of vodka a day. The patient states that he actually drove to a gun store to buy a gun with the intention of killing himself. He states that he recently found out that his has her own checking account. He did not give any other details but he was unaware of her "other life". The patient states that he talk to Deisi from [facility] and was referred here. The patient has no other complaints. He states that he has been through alcohol rehab in the past. The patient's blood pressure is elevated. The patient's physical exam was otherwise unremarkable. The patient CBC and chemistry panel was unremarkable. TSH was normal. Alcohol is 207. Urine did not show infection. Urine tox screen was negative. The patient will be medically cleared at 1930 hrs. he was evaluated by the psychiatric pillowcase cleaner. The patient was accepted to [facility] Impression & Plan Alcohol intoxication, Suicidal ideation, Depression Discharge Plan Visit Data Chief Complaint: Mental Health Evaluation Stated Complaint: [facility] ED Provider: Ernesto Damon Discharge Problem: Alcohol intoxication, Suicidal ideation, Depression Patient Disposition: Transfer Behavioral Health Fac Forms Stand Alone Forms: My [facility], Suicide Prevention Resources Prescriptions Prescriptions: No Action levetiracetam 500 mg tablet 500 mg PO BID 30 Days Qty: 60 RF: 4 citalopram 40 mg tablet 40 mg PO DAILY RF: 0 propranolol 40 mg tablet 40 mg PO BID RF: 0 quetiapine 100 mg tablet 100 mg PO HS RF: 0 doxepin 50 mg capsule 100 mg PO HS RF: 0 melatonin 5 mg capsule 5 mg PO HS RF: 0 ropinirole 2 mg tablet 2 mg PO .COMPLEX 90 Days Qty: 90 RF: 1 pantoprazole 40 mg Tablet,Delayed Release (Dr/Ec) 40 mg PO QAM RF: 0 epinephrine [EpiPen] 0.3 mg/0.3 mL Auto-Injector 0.3 mg IM DIRECTED PRN (Reason: Allergic Reaction) RF: 0 rosuvastatin [Crestor] 10 mg Tablet 10 mg PO QAM RF: 0 clonidine HCl 0.1 mg tablet 0.1 mg PO DAILY RF: 0 hydroxyzine pamoate 50 mg capsule 50 mg PO DAILY RF: 0 buspirone 5 mg tablet 5 mg PO BID RF: 0 fenofibrate nanocrystallized 145 mg tablet 145 mg PO HS RF: 0 Referrals Referrals: Matheus Riojas [Primary Care Provider] -
[2020-03-15 16:00] LABS: Appearance Urine Clear (Clear); Blood Urine Negative (Negative); Color Urine Dark Yellow; Glucose Urine UA Negative (Negative); Ketones Urine Trace (Negative); Leukocyte Esterase Urine Negative (Negative); Nitrite Urine Negative (Negative); Protein Urine Negative (Negative); Specific Gravity Urine 1.019 (1.000-1.030); Urobilinogen Urine Positive (Negative)
[2020-03-15 16:02] LABS: Bilirubin Urine Negative (Negative); Ictotest Urine Negative (Negative)
[2020-03-15 16:24] LABS: Amphetamines+Metham, Urine Neg (Neg); Barbiturates, Urine Neg (Neg); Benzodiazepine, Urine Neg (Neg); Cocaine, Urine Neg (Neg); MDMA (Ecstacy), Urine Neg (Neg); Methadone, Urine Neg (Neg); Opiate, Urine Neg (Neg); Phencyclidine, Urine Neg (Neg)
[2020-03-15 16:36] LABS: Hematocrit (blood only) 38.9 % (42-52); Hemoglobin 14.1 g/dL (14.0-18.0); Mean Corpuscular Hemoglobin 32.2 pg (25-34); Mean Corpuscular Hgb Conc 36.2 g/dL (32-36); Mean Corpuscular Volume 88.8 fL (80-100); RDW Coefficient of Variation 13.4 % (11.5-14.5); RDW Standard Deviation 43.9 fL (36.4-46.3); Red Blood Count 4.38 M/uL (4.7-6.1); White Blood Count 3.87 K/uL (4.8-10.8)
[2020-03-15 16:44] LABS: Albumin Globulin Ratio 0.7 (0.9-2); Albumin Level 3.4 gm/dl (3.4-5.0); BUN Creatinine Ratio 7.9 (10-20); Bilirubin,Total 0.7 mg/dl (0.2-1); Calcium 8.1 mg/dl (8.5-10.1); Est GFR (African American) 102.3; Est GFR (Non-African American) 88.3; Globulin 4.7 gm/dl (2.5-4.0); Potassium 3.2 mmol/L (3.5-5.1); Thyroid Stimulating Hormone 1.78 uIu/ml (0.300-4.500); Total Protein 8.1 gm/dl (6.4-8.2)
[2020-03-15 17:03] LABS: Mean Platelet Volume 9.8 fL (7.4-10.4); Platelet Count 92 K/uL (130-400)
[2020-03-15 17:04] LABS: Basophils # (auto) 0.02 K/uL (0-0.2); Basophils % (auto) 0.5 %; Eosinophils # (auto) 0.14 K/uL (0-0.5); Eosinophils % (auto) 3.6 %; Immature Granulocytes # (auto) 0.01 K/uL (0.00-0.02); Immature Granulocytes % (auto) 0.3 %; Lymphocytes # (auto) 1.49 K/uL (1.2-3.4); Lymphocytes % (auto) 38.5 %; Monocytes # (auto) 0.46 K/uL (0.11-0.59); Monocytes % (auto) 11.9 %; Neutrophils # (auto) 1.75 K/uL (1.4-6.5); Neutrophils % (auto) 45.2 %; Pappenheimer Bodies 1+
[2020-03-15] MEDS ORDERED: LORazepam 1 MG TAB PO STA ×2 (17:43→20:43)
[2020-03-15 17:47] LABS: Acetaminophen < 2 ug/ml (10-30); Salicylate 4.4 mg/dl (2.8-20)
[2020-03-15] MEDS ORDERED: LORazepam 1 MG TAB PO PRN (21:53)
[2020-03-15] MEDS ORDERED: ALUMINUM/MAGNESIUM SUSP 30 ML UDC PO PRN (21:53)
[2020-03-15] MEDS ORDERED: ACETAMINOPHEN 325 MG TAB PO PRN (21:53)
[2020-03-15] MEDS ORDERED: BISMUTH SUBSALICYLATE PER ML OMNICELL CHARGE PO PRN (21:53)
[2020-03-15] MEDS ORDERED: MAGNESIUM HYDROXIDE SUSP 30 ML UDC PO PRN (21:53)
[2020-03-15] MEDS ORDERED: SODIUM CHLORIDE 0.65% NA SOLN 45 ML (OCEAN) PRN (21:53)
[2020-03-15] MEDS ORDERED: POTASSIUM CHLORIDE 20 MEQ TABCR PO STA (21:58)
[2020-03-15] MEDS ORDERED: EPINEPHRINE ADULT AUTO-INJECT 0.3 MG SYR IM PRN (22:04)
[2020-03-16] MEDS: QUETIAPINE FUMARATE 100 MG TABLET PO SCH ×2 (00:11→21:19)
[2020-03-16] MEDS: DOXEPIN HCL 50 MG CAPSULE PO SCH ×2 (00:11→21:20)
[2020-03-16] MEDS: FENOFIBRATE NANOCRYSTALLIZED 145 MG TABLET PO SCH ×2 (00:31→21:20)
[2020-03-16] MEDS: PROPRANOLOL HCL 20 MG TAB PO SCH ×3 (00:32→21:18)
[2020-03-16] MEDS: ROPINIROLE HCL 1 MG TABLET PO SCH ×2 (00:32→21:16)
[2020-03-16] MEDS: levETIRAcetam 500 MG TAB PO SCH ×3 (00:32→21:19)
[2020-03-16] MEDS: ROSUVASTATIN CALCIUM 10 MG TAB PO SCH (09:04)
[2020-03-16] MEDS: PANTOprazole 40 MG TAB PO SCH (09:04)
[2020-03-16] MEDS: cloNIDine HCL 0.1 MG TAB PO SCH (09:05)
[2020-03-16] MEDS: CITALOPRAM 40 MG TAB PO SCH (09:05)
--- NOTE | 2020-03-16 10:01 | History & Physical ---
Date of Service March 16, 2020 Impression / Recommendations Impression 59-year-old male with a history of severe alcohol dependence and recurrent depression who presented with worsening mood and suicidal ideation in the context of heavy daily alcohol use and an argument with his . He went so far as to attempt to buy a gun over the weekend, but did not pass the background check. He presented for voluntary admission after talking with his outpatient counselor at [facility]. He demonstrates limited insight into his addiction and minimizes his recent behavior (attempt to buy a gun). He reports his medications are helpful, but he is noncompliant with them when drinking heavily. He will need a family meeting with his , and ongoing motivational interviewing with respect to his addiction and poor adherence to mental health treatment. Inpatient treatment is medically necessary due to the severity of symptoms and risk for suicide if discharged. (1) Suicidal ideation: Voluntary inpatient treatment. 15-minute checks for safety. (2) Depression: 03/16 -Resume home doses of psychotropics; citalopram 40 mg daily, buspirone 5 mg twice daily, doxepin 100 mg at bedtime, clonidine 0.1 mg daily, and quetiapine 100 mg at bedtime. Patient had been noncompliant for the past week. Get outpatient records and coordinate with his outpatient treatment team. -FLP and FG for monitoring on an atypical antipsychotic: Last FLP reviewed from 03/2019; triglycerides 305, otherwise within normal limits. Hemoglobin A1c 5.8%. We will reorder both for tomorrow as he is due for his yearly labs. -Participate in unit groups and therapy, work on healthy coping skills and discharge safety plan. Family meeting with . Depression Type: unspecified Qualified Code(s): F32.9 - Major depressive disorder, single episode, unspecified (3) Alcohol dependence: 03/16 -continue AWSS protocol for alcohol withdrawal. Avoid medications that are addictive or abusable due to high risk of abuse/misuse/negative outcomes. -Brief intervention was offered and accepted Intervention was greater than 5 min in length. Brief interventions include: 1. Assess Readiness to Quit, 2. Advise: Help Patient to Reduce or Abstain from Alcohol, 3. Agree: Set Specific, Feasible Goals, 4. Assist: Anticipate barriers, Problem-Solving Solutions. Social work to 5. Arrange: Referrals to appropriate treatment. Summary of intervention: The patient is in contemplation stage with regards to transtheoretical model of change. The patient is advised to decrease alcohol consumption due to depressant effects and risk of interactions with prescription medications. The patient agreed to IOP and will be provided with recovery materials to continue to education self on how to cope with their condition without drinking. Recommendations are for inpatient rehab, as he has failed outpatient care, with a stepdown to IOP and peers support groups once completed. He is not willing to consider this at this time, and feels he can stop drinking on his own. (4) Seizure disorder: 03/16 -continue home dose of Keppra, follow-up as directed with Dr. Hooks. (5) RLS (restless legs syndrome): 03/16 -continue home dose of ropinirole; follow-up with Dr. Hooks. (6) Hyperlipidemia: 03/16 -continue home dose of Crestor. FLP as above. (7) Hypertension: 03/16 -continue home doses of propanolol and clonidine. Risk Factors Assessment Male: Yes : Yes Health Problems: Yes Mental Health Diagnoses: Yes Substance Use Disorders: Yes Previous Attempt: No Family History of Suicide: No Previous Psychiatric Hospitalization: Yes Hopelessness: Yes Smoker: Yes Protective Factors Assessment : Yes Responsible for Young Children: No Employed: No Stable Relationships: Yes Supportive Family: Yes Good Rapport with Provider: Yes Psychiatric History Identifying Data FRED HOGAN is a 59-year-old M who currently lives in [place] with his , has a history of recurrent depression and alcohol dependence, and was admitted on 03/15/20 21:54 on a 201 voluntary commitment for suicidality after he tried to buy a gun in the context of an argument with his and relapse on alcohol. Chief Complaint " I was good, was doing pretty well actually...". History of Present Illness Patient is known to us from 2 hospitalizations in 03/2019 and 04/2019, also for depression and alcohol dependence with suicidal ideation and an attempt to buy a gun. In March, he was discharged on citalopram, with [facility]-up at [facility] for therapy, and Dr. Hooks of neurology. He returned to the ER in 04/2019 with police due to anxiety, alcohol intoxication with a BAL of 274, and nonadherence with citalopram. He had not followed through with AA or substance abuse treatment, and resumed drinking. He minimized his drinking and use defense mechanisms of denial, intellectualization, and rationalization. He would not accept recommendations for substance abuse treatment, stating he could achieve sobriety on his own. He was continued on citalopram which was increased to 40 mg daily, and started on lamotrigine for mood regulation, as he reported mood swings and lability. He was later discovered that he had been prescribed quetiapine as an outpatient, which was restarted and increased to 75 mg at bedtime, and lamotrigine was discontinued to avoid polypharmacy. He had a family meeting with his and adult children, and they confronted him about his drinking and behaviors while intoxicated, and encouraged him to go to rehab. He ultimately agreed to referral to [facility] and was referred to [facility]. In the interim, he presented to the ER in 07/2019 with chest pain, reported he had been sober for 1 week, and was discharged to outpatient cardiology follow-up. He is continued outpatient treatment for history of prostate cancer, and seizure disorder; he saw Dr. Hooks in 11/09/2019 and was continued on Keppra for seizures and ropinirole for RLS. He presented to the ER yesterday, 03/15/2020, with depression, alcohol abuse, and suicidal ideation. He said he went to rehab at [facility] in July, and had been sober for 4 months until he relapsed, and was drinking heavily for 1 week prior to presentation after he discovered that his has her own checking account, and thought this meant that she had " another life," and suspected she had been unfaithful. After that he went to his camp, and was drinking daily for the past 6 days, and was not taking his psychotropic medications. He reported drinking 1/5 of vodka daily for the past several days, and went to a gun store on Saturday with intent to buy a gun and kill himself, but they would not sell him the gun. He talked to his therapist at [facility], as did 2 of his friends who are at camp with him, who referred him to the hospital. His alcohol level was 207, and admission labs were otherwise notable for sodium 3.2, normal TSH. He signed in voluntarily for treatment, and received 40 mEq of potassium in the ER. He signed releases for his PCP, neurologist, Shannon, and , and was started on AWSS protocol, and continued on his home medications including buspirone, citalopram, clonidine, doxepin, Keppra, propanolol, quetiapine, and ropinirole. On my assessment, he was seen with MARGRET Aguilar. He states he attended rehab as above, was sober until 11/2019, and since that time his alcohol use has gradually increased. He worsened significantly 1 week ago after he discovered his had checks with her name alone on them, as he was upset that she "had a whole separate life, my paycheck has been paying for pretty much everything." He struggles to explain this further, or what her having her own checks meant to him or further relationship. He said that he tried to talk to her about it, and she said that she was keeping her money separate "because of my drinking." He says that they had a fight, and he left and went to his camp and was drinking heavily for the past week. Friends came and stayed with him at times, and brought him to the hospital yesterday after he talked with his counselor at [facility] and she recommended inpatient treatment. He minimizes the incident with a gun, stating that he went to a gun store over the weekend to try to buy a gun, but says he does not think he would have shot himself. He says "I didn't think I would get it because I was 302'd, but I never got my notification, which was really bugging me. It was just a challenge, a quest." He says at the store, they told him he failed the background check, but did not tell him why. 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 He denies drinking and driving, then says "well I can't I never do it." He admits to noncompliance with his psychotropic medications over the past week, but says they "work well when I ta ke them." He states his primary concern is "anxiety, nerves, if I do not get something in me, full-blown panic attack." He says his goals of treatment are to "get my meds straight, strategies to avoid over drinking." He says he knows he should not drink at all, as he does better when "I just avoid it, because once I get started, I can't stop." Past Psychiatric History Current Psychiatric Diagnosis: Major Depressive Disorder, alcohol dependence Outpatient Services: MARG[facility]ton at [facility] Previous Psych Admissions: [facility] 03/2019, 04/2019 History of Previous Suicide Attempt: No Past Medication Trials: Lamotrigine -during hospitalization here in 2019 Past Head Trauma/Neuro History History of Concussion/Seizure: Yes Allergies Allergy/AdvReac Type Severity Reaction Status Date / Time bee venom protein (honey bee) Allergy Severe ANAPHYLAXIS Verified 03/15/20 16:38 cat dander Allergy Intermediate Itchy/Watery Verified 03/15/20 16:38 Eyes, Itchy throat tamsulosin Allergy Intermediate Hives Verified 03/15/20 16:38 Home Medications Home Medications Medication Instructions Recorded Confirmed Type rosuvastatin [Crestor] 10 mg PO QAM 09/13/18 03/15/20 History epinephrine [EpiPen] 0.3 mg IM DIRECTED PRN 03/21/19 03/15/20 History pantoprazole 40 mg PO QAM 03/21/19 03/15/20 History clonidine HCl 0.1 mg tablet 0.1 mg PO DAILY tab 09/01/19 03/15/20 History hydroxyzine pamoate 50 mg capsule 50 mg PO DAILY cap 09/01/19 03/15/20 History buspirone 5 mg tablet 5 mg PO BID tab 11/11/19 03/15/20 History citalopram 40 mg tablet 40 mg PO DAILY tab 11/11/19 03/15/20 History doxepin 50 mg capsule 100 mg PO HS 11/11/19 03/15/20 History melatonin 5 mg capsule 5 mg PO HS 11/11/19 03/15/20 History propranolol 40 mg tablet 40 mg PO BID 11/11/19 03/15/20 History quetiapine 100 mg tablet 100 mg PO HS 11/11/19 03/15/20 History ropinirole 2 mg tablet 2 mg PO .COMPLEX 90 Days #90 tab 11/11/19 03/15/20 Rx levetiracetam 500 mg tablet 500 mg PO BID 30 Days #60 tab 01/25/20 03/15/20 Rx fenofibrate nanocrystallized 145 mg PO HS 03/15/20 03/15/20 History Family History Family History of: None Alcohol History Hx of Alcohol Use Over the Past 12 Months: Yes ("I started last Sat. 10/25 of whiskey a day") AUDIT Total Score: 34 History of multiple hospitalizations related to alcohol intoxication/withdrawal, history of alcohol withdrawal, history of inpatient rehab at [facility] 07/2019. Has caused relationship problems within the family, hides his drinking from others, and has drank after driving. Has expressed suicidal thoughts multiple times when intoxicated. Smoking Use Have You Smoked or Used Tobacco Products in the Last 30 Days: Yes tobacco type: cigars Smoking Status: Current some day smoker Substance History Hx of Prescription Med Misuse Over the Past 12 Months: No Hx of Over the Counter Med Misuse Over the Past 12 Months: No Hx of Inhalent Misuse Over the Past 12 Months: No Hx of Organic Substance Use Over the Past 12 Months: No Hx of Illegal Substances/Street Drug Use Over Past 12 Months: No Problems as a Result of Past Substance Use: Life out of Control, Attempted Suicide and Loss of Family Support Personal History Living Arrangements: Home Living Arrangements Comments: With in [place] Highest Grade Completed: College 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) Marital Status: Beliefs That Will Affect Care: None Hx Legal Problems: No Hx Traumatic Life Events: Yes (medical) Patient History Family History Other Cancer Social History Preferred Language: [place] Communication Ability: Effective Contract Runner Required: No Beliefs That Will Affect Care: None Feels Safe at Home: Yes Smoking Status: Current some day smoker Tobacco Type: cigars ; Review of Systems Review of Systems: All systems reviewed & are unremarkable except as noted in HPI & below GI upset Physical Exam Psychiatric: Orientation: alert and cooperative Apperance: appropriately dressed, + disheveled and appeared stated age Overweight, white hair thinning on top, disheveled and unkempt, wearing glasses Eye Contact: + poor eye contact Motor Behavior: steady gait and station Restless, shifting frequently in his seat, putting his hands in his hands Mutters under his breath at times, halted speech, does not finish sentences Affect: + depressed affect, + anxious affect, + irritable affect and + constricted affect; + mood not congruent with affect "Good." Thought Process: + thought process not linear or logical Vague statements, often does not complete thoughts Thought Content: + cognitive distortions Suicidal Thoughts: denies suicidal thoughts Inconsistent with reports that led to hospitalization, as admitted to attempting to buy a gun several days ago to use to shoot himself Homicidal Thoughts: denies homicidal thoughts Hallucinations: no auditory hallucinations and no visual hallucinations Cognition: language grossly intact; + recent memory not intact (Poor memory for periods of intoxication) and + attention not intact Insight: + impaired insight Judgement: + impaired judgement Vital Signs (Past 24 Hours): Last Vital Signs Temp 36.7 C 03/16/20 06:24 Pulse 82 03/16/20 06:24 Resp 20 03/16/20 06:24 BP 129/87 03/16/20 06:24 Pulse Ox 96 03/15/20 23:38 Exam Statement: A physical exam was performed in the ER prior to admission to the unit by Dr. Ernesto Damon. I accept that physical as correct/medical cl earance for the inpatient physical exam. Results & Data ([facility]) Laboratory Results Laboratory Results - last 24 hr 03/15/20 03/15/20 03/15/20 15:25 15:25 15:31 WBC 3.87 L RBC 4.38 L Hgb 14.1 Hct 38.9 L MCV 88.8 MCH 32.2 MCHC 36.2 H RDW Std Deviation 43.9 RDW Coeff of Antonio 13.4 Plt Count 92 L MPV 9.8 Immature Gran % (Auto) 0.3 Neut % (Auto) 45.2 Lymph % (Auto) 38.5 [place] % (Auto) 11.9 Eos % (Auto) 3.6 Baso % (Auto) 0.5 Immature Gran # (Auto) 0.01 Neut # (Auto) 1.75 Lymph # (Auto) 1.49 [place] # (Auto) 0.46 Eos # (Auto) 0.14 Baso # (Auto) 0.02 Pappenheimer Bodies 1+ Sodium Potassium Chloride Carbon Dioxide Anion Gap BUN Creatinine Est Cr Clr Drug Dosing Est GFR ( Amer) Est GFR (Non-Af Amer) BUN/Creatinine Ratio Glucose Calcium Total Bilirubin AST ALT Alkaline Phosphatase Total Protein Albumin Globulin Albumin/Globulin Ratio Folate TSH Specimen Hemolysis Urine Color Dark Yellow Urine Appearance Clear Urine pH 6.0 Ur Specific [place] 1.019 Urine Protein Negative Urine Glucose (UA) Negative Urine Ketones Trace H Urine Blood Negative Urine Nitrite Negative Urine Bilirubin Negative Urine Urobilinogen Positive H Ur Leukocyte Esterase Negative Salicylates Urine Opiates Screen Neg Ur Methadone, Qual Neg Acetaminophen Urine Barbiturates Neg Ur Phencyclidine (PCP) Neg U Amphetamin/Meth Scrn Neg MDMA (Ecstasy) Screen Neg U Benzodiazepines Scrn Neg Ur Cocaine Metabolite Neg U Marijuana (THC) Screen Neg Ethyl Alcohol mg/dL 03/15/20 03/15/20 03/15/20 15:31 15:31 15:31 WBC RBC Hgb Hct MCV MCH MCHC RDW Std Deviation RDW Coeff of [place] Plt Count MPV Immature Gran % (Auto) Neut % (Auto) Lymph % (Auto) [place] % (Auto) Eos % (Auto) Baso % (Auto) Immature Gran # (Auto) Neut # (Auto) Lymph # (Auto) [place] # (Auto) Eos # (Auto) Baso # (Auto) Pappenheimer Bodies Sodium 140 Potassium 3.2 L Chloride 105 Carbon Dioxide 27 Anion Gap 8.0 BUN 7 Creatinine 0.93 Est Cr Clr Drug Dosing 97.0 Est GFR ( Amer) 102.3 Est GFR (Non-Af Amer) 88.3 BUN/Creatinine Ratio 7.9 L Glucose 112 H Calcium 8.1 L Total Bilirubin 0.7 AST 130 H ALT 73 Alkaline Phosphatase 116 Total Protein 8.1 Albumin 3.4 Globulin 4.7 H Albumin/Globulin Ratio 0.7 L Folate TSH 1.780 Specimen Hemolysis Urine Color Urine Appearance Urine pH Ur Specific [place] Urine Protein Urine Glucose (UA) Urine Ketones Urine Blood Urine Nitrite Urine Bilirubin Urine Urobilinogen Ur Leukocyte Esterase Salicylates 4.4 Urine Opiates Screen Ur Methadone, Qual Acetaminophen < 2 L Urine Barbiturates Ur Phencyclidine (PCP) U Amphetamin/Meth Scrn MDMA (Ecstasy) Screen U Benzodiazepines Scrn Ur Cocaine Metabolite U Marijuana (THC) Screen Ethyl Alcohol mg/dL 207.0 H 03/15/20 22:21 WBC RBC Hgb Hct MCV MCH MCHC RDW Std Deviation RDW Coeff of [place] Plt Count MPV Immature Gran % (Auto) Neut % (Auto) Lymph % (Auto) [place] % (Auto) Eos % (Auto) Baso % (Auto) Immature Gran # (Auto) Neut # (Auto) Lymph # (Auto) [place] # (Auto) Eos # (Auto) Baso # (Auto) Pappenheimer Bodies Sodium Potassium Chloride Carbon Dioxide Anion Gap BUN Creatinine Est Cr Clr Drug Dosing Est GFR ( Amer) Est GFR (Non-Af Amer) BUN/Creatinine Ratio Glucose Calcium Total Bilirubin AST ALT Alkaline Phosphatase Total Protein Albumin Globulin Albumin/Globulin Ratio Folate 10.49 TSH Specimen Hemolysis Urine Color Urine Appearance Urine pH Ur Specific [place] Urine Protein Urine Glucose (UA) Urine Ketones Urine Blood Urine Nitrite Urine Bilirubin Urine Urobilinogen Ur Leukocyte Esterase Salicylates Urine Opiates Screen Ur Methadone, Qual Acetaminophen Urine Barbiturates Ur Phencyclidine (PCP) U Amphetamin/Meth Scrn MDMA (Ecstasy) Screen U Benzodiazepines Scrn Ur Cocaine Metabolite U Marijuana (THC) Screen Ethyl Alcohol mg/dL Current Inpatient Medications Current Inpatient Medications: Current Inpatient Medications Acetaminophen (Tylenol) 650 mg PO Q4H PRN PRN Reason: Headache or Minor Fever Stop: 04/14/20 21:52 Al Hydrox/Mg Hydrox/Simethicone (Maalox) 30 ml PO Q4H PRN PRN Reason: GI Upset Stop: 04/14/20 21:52 Bismuth Subsalicylate (Kaopectate) 15 ml PO PRN PRN PRN Reason: Loose Stool Stop: 04/14/20 21:52 Buspirone HCl (Buspar) 5 mg PO BID [facility] Stop: 04/15/20 08:59 Last Admin: 03/16/20 09:05 Dose: 5 mg Documented by: Citalopram Hydrobromide (Celexa) 40 mg PO DAILY [facility] Stop: 04/15/20 08:59 Last Admin: 03/16/20 09:05 Dose: 40 mg Documented by: Clonidine HCl (Catapres) 0.1 mg PO DAILY [facility] Stop: 04/15/20 08:59 Last Admin: 03/16/20 09:05 Dose: 0.1 mg Documented by: Doxepin HCl (Sinequan) 100 mg PO [facility] Stop: 04/14/20 22:09 Last Admin: 03/16/20 00:11 Dose: 100 mg Documented by: Epinephrine HCl (Epipen) 0.3 mg IM UD PRN PRN Reason: Allergic Reaction Stop: 04/14/20 22:03 Fenofibrate (Tricor) 145 mg PO [facility] Stop: 04/14/20 22:09 Last Admin: 03/16/20 00:31 Dose: Not Given Documented by: Hydroxyzine HCl (Vistaril) 50 mg PO HSZ PRN PRN Reason: Insomnia Stop: 04/14/20 21:52 Last Admin: 03/16/20 02:52 Dose: 50 mg Documented by: Hydroxyzine HCl (Vistaril) 25 mg PO Q4H PRN PRN Reason: Anxiety Stop: 04/14/20 21:52 Levetiracetam (Keppra) 500 mg PO BID [facility] Stop: 04/14/20 22:14 Last Admin: 03/16/20 09:05 Dose: 500 mg Documented by: Lorazepam (Ativan) 1 mg PO ONE PRN; Protocol PRN Reason: EtoH Withdrawal AWSS 6-10 Magnesium Hydroxide (Milk Of Magnesia) 30 ml PO DAILY PRN PRN Reason: Constipation Stop: 04/14/20 21:52 Pantoprazole Sodium [facility]ix) [facility] Stop: 04/15/20 08:59 Last Admin: 03/16/20 09:04 Dose: 40 mg Documented by: Propranolol HCl (Inderal) 40 mg PO BID [facility] Stop: 04/14/20 22:14 Last Admin: 03/16/20 09:05 Dose: 40 mg Documented by: Quetiapine Fumarate (Seroquel) 100 mg PO [facility] Stop: 04/14/20 22:09 Last Admin: 03/16/20 00:11 Dose: 100 mg Documented by: Ropinirole HCl (Requip) 2 mg PO DAILY@1999 [facility] Stop: 04/14/20 22:59 Last Admin: 03/16/20 00:32 Dose: Not Given Documented by: Rosuvastatin Calcium (Crestor) [facility] Stop: 04/15/20 08:59 Last Admin: 03/16/20 09:04 Dose: 10 mg Documented by: Sodium Chloride ([place] Nasal) 1 - 2 sprays NA PRN PRN PRN Reason: Nasal Dryness/Congestion Stop: 04/14/20 21:52
[2020-03-17 08:32] LABS: Chol HDL Ratio 12; Cholesterol 212 mg/dl (0-200); HDL Cholesterol 18 mg/dl; Triglycerides 1154 mg/dl (0-150)
[2020-03-17] MEDS: ROSUVASTATIN CALCIUM 10 MG TAB PO SCH (08:38)
[2020-03-17] MEDS: PROPRANOLOL HCL 20 MG TAB PO SCH ×2 (08:38→21:32)
[2020-03-17] MEDS: CITALOPRAM 40 MG TAB PO SCH (08:38)
[2020-03-17 08:39] LABS: Estimated Average Glucose 194 mg/dl; Hemoglobin A1C 8.4 % (4.5-5.6)
[2020-03-17] MEDS: PANTOprazole 40 MG TAB PO SCH (08:39)
[2020-03-17] MEDS: cloNIDine HCL 0.1 MG TAB PO SCH (08:39)
[2020-03-17] MEDS: levETIRAcetam 500 MG TAB PO SCH ×2 (08:39→21:32)
[2020-03-17] MEDS ORDERED: LORazepam 1 MG TAB PO PRN (11:52)
--- NOTE | 2020-03-17 16:18 | Psychiatric Progress Note ---
Date of Service March 17, 2020 Impression / Recommendations Impression 59-year-old male with a history of severe alcohol dependence and recurrent depression who presented with worsening mood and suicidal ideation in the context of heavy daily alcohol use and an argument with his . He went so far as to attempt to buy a gun over the weekend, but did not pass the background check. He presented for voluntary admission after talking with his outpatient counselor at [facility]. He demonstrates limited insight into his addiction and minimizes his recent behavior (attempt to buy a gun). He reports his medications are helpful, but he is noncompliant with them when drinking heavily. He will need a family meeting with his , and ongoing motivational interviewing with respect to his addiction and poor adherence to mental health treatment. Inpatient treatment is medically necessary due to the severity of symptoms and risk for suicide if discharged. (1) Suicidal ideation: Voluntary inpatient treatment. 15-minute checks for safety. 03/17 - Pt denies current active or passive suicidal ideation or homicidal ideation today. - Continue 15- minute checks for safety. (2) Depression: 03/16 -Resume home doses of psychotropics; citalopram 40 mg daily, buspirone 5 mg twice daily, doxepin 100 mg at bedtime, clonidine 0.1 mg daily, and quetiapine 100 mg at bedtime. Patient had been noncompliant for the past week. Get outpatient records and coordinate with his outpatient treatment team. -FLP and FG for monitoring on an atypical antipsychotic: Last FLP reviewed from 03/2019; triglycerides 305, otherwise within normal limits. Hemoglobin A1c 5.8%. We will reorder both for tomorrow as he is due for his yearly labs. -Participate in unit groups and therapy, work on healthy coping skills and discharge safety plan. Family meeting with . 03/17 - Continue home psychotropic medications as scheduled and pt is compliant with medications. - Family meeting with his scheduled tomorrow per pt's 's request. - Continue attempts to set up aftercare appointments with psychiatrist, therapist and also treatment of alcohol dependence. - FLP obtained; triglycerides 1154 and cholesterol 212, otherwise WNL. Hemoglobin A1c result hasn't reported and if it was not obtained this time, it will be reordered. Lab results haven't reviewed with the patient yet. (3) Alcohol dependence: 03/16 -continue AW protocol for alcohol withdrawal. Avoid medications that are addictive or abusable due to high risk of abuse/misuse/negative out comes. -Brief intervention was offered and accepted Intervention was greater than 5 min in length. Brief interventions include: 1. Assess Readiness to Quit, 2. Advise: Help Patient to Reduce or Abstain from Alcohol, 3. Agree: Set Specific, Feasible Goals, 4. Assist: Anticipate barriers, Problem-Solving Solutions. Social work to 5. Arrange: Referrals to appropriate treatment. Summary of intervention: The patient is in contemplation stage with regards to transtheoretical model of change. The patient is advised to decrease alcohol consumption due to depressant effects and risk of interactions with prescription medications. The patient agreed to IOP and will be provided with recovery materials to continue to education self on how to cope with their condition without drinking. Recommendations are for inpatient rehab, as he has failed outpatient care, with a stepdown to IOP and peers support groups once completed. He is not willing to consider this at this time, and feels he can stop drinking on his own. 03/17 - Continue AWSS protocol for alcohol withdrawal. Ativan PO ordered since pt's AWSS score was 6 today when his anxiety got worse after hearing that scheduled family meeting was canceled per pt's 's request. - Continue attempts to set up aftercare treatment to address alcohol dependence. (4) Seizure disorder: 03/16 -continue home dose of Keppra, follow-up as directed with Dr. Hooks. (5) RLS (restless legs syndrome): 03/16 -continue home dose of ropinirole; follow-up with Dr. Hooks. (6) Hyperlipidemia: 03/16 -continue home dose of Crestor. FLP as above. (7) Hypertension: 03/16 -continue home doses of propanolol and clonidine. Risk Factors Assessment Male: Yes : Yes Health Problems: Yes Mental Health Diagnoses: Yes Substance Use Disorders: Yes Previous Attempt: No Family History of Suicide: No Previous Psychiatric Hospitalization: Yes Hopelessness: Yes Smoker: Yes Protective Factors Assessment : Yes Responsible for Young Children: No Employed: No Stable Relationships: Yes Supportive Family: Yes Good Rapport with Provider: Yes Interval History Identifying Information FRED HOGAN is a 59-year-old M who currently lives in [place] with his , has a history of recurrent depression and alcohol dependence, and was admitted on 03/15/20 21:54 on a 201 voluntary commitment for suicidality after he tried to buy a gun in the context of an argument with his and relapse on alcohol. Chief Complaint "[Divorce. I'm afraid of getting ]". Review of Systems Notes Constitutional: denied Cardiovascular: denied Respiratory: denied Gastrointestinal: denied Neurological: denied Psychiatric: denies symptoms other than stated above Total of at least 10 systems reviewed, pertinent positives as above and in HPI. Sleep Information Total Hours of Sleep: 9.25 Sleep Comments: pt appeared to fall asleep @ 0330 and thereafter. pt on q-15 minute checks Meal Information Percent Meal Consumed - Breakfast: 100 Percent Meal Consumed - Lunch: 100 Percent Meal Consumed - Dinner: 100 Subjective Subjective Patient was seen & assessed and interval progress reviewed with nursing and social work today. Medical staff reports that he joined groups and activities since yesterday afternoon and his mood was good this morning, expecting he could be discharged today after the scheduled family meeting with his 1 pm. When he was informed that his doesn't feel comfortable talking with him today and the meeting was canceled, he was very upset and agitated. He calmed down ev entually after getting lorazepam 1 mg based on the AWSS protocol. Still participated groups today and processed his anger with nursing staff and social workers further. On today's assessment with this provider, he states that he felt frustrated this morning because his was okay when he talked her over the phone yesterday and then changed her mind all of a sudden and he can't be discharged today. States that she has been stubborn and resistant with any suggestions or offers to get further help for their recent marital issues. Reportedly their relationship has been superficial since he was diagnosed with prostate cancer about 4 years ago and he attributes this to unsatisfactory sexual relationship due to his cancer. When he was asked if this would be the only reason that their marriage has been problematic, he admits that his alcohol dependence hasn't helped it either. Since his 's father had alcohol problem, she is always sensitive to alcohol intake and criticized him a lot up to the point of verbal abuse when he drank one time in November after 3-4 month sobriety, which caused him more frustrated and upset. When he found out she has been managing her own bank account last Saturday, he was so furious and depressed, because he thought she was cheating on their relationships, that he couldn't even eat or sleep for 4-5 days. When he was asked about his multiple statements regarding SI and trial to purchase a gun during the last weekend within this context, he denies any intention of SI or HI, stating " I love her so much and don't want to kill my . Also I don't have any courage to kill myself either." He said that his behaviors and statements regarding SI were only out of his frustration or anger and doesn't have any intention of suicide or homicide. He also stated that he wanted to get explanation from his regarding the separate bank account and needed a closure to this during the family meeting with his today. When he was asked about the worst scenario during the meeting, he said, "Divorce. I don't want to get because I love my so much and am afraid that she says that to me." He tried to discuss with his further about his problems and concerns but always felt that he was talking to a wall and she didn't listen to him at all. When he was further asked about changing himself, especially his alcohol dependence, to improve their marital problems or if he is willing to get further treatment in the [facility] to maintain his marriage, he says, "I tried and learned a lot last year during my rehab, but I can't maintain. I can't." He was tearful, saying "I have pain in my chest here but no medications can help this at all." He wanted to end today's assessment, complaining of feeling more anxious. Physical Exam Psychiatric Orientation: alert, oriented x 3 and + guarded Apperance: appropriately dressed and + disheveled Eye Contact: + fair eye contact Motor Behavior: steady gait and station Speech: normal rate/rhythm/volume of speech Affect: + depressed affect, + anxious affect and + tearful affect (tearful when he was talking about divorce) Mood: + depressed mood, + anxious mood and + irritable mood (occasionally when we were discussing about his alcohol problem) Thought Process: + thought process not linear or logical Thought Content: + cognitive distortions (minimizing and externalizing his problem), + hopelessness and + worthlessness Suicidal Thoughts: denies suicidal thoughts "I don't have any courage to kill myself." Homicidal Thoughts: denies homicidal thoughts Hallucinations: no auditory hallucinations and no visual hallucinations Cognition: recent memory grossly intact, attention grossly intact and language grossly intact Estimated Intelligence: consistent with education level Insight: + fair insight admitting his alcohol problem today but trying to avoid facing his problem Judgement: + impaired judgement Vital Signs (Past 24 Hours) Last Vital Signs Temp 36.8 C 03/17/20 14:22 Pulse 64 03/17/20 14:22 Resp 16 03/17/20 14:22 BP 142/87 H 03/17/20 14:22 Pulse Ox 99 03/17/20 12:27 Results & Data ([facility]) Laboratory Results Laboratory Results - last 24 hr 03/17/20 03/17/20 07:35 07:35 Estimat Average Glucose 194 Hemoglobin A1c 8.4 H Triglycerides 1154 H Cholesterol 212 H LDL Cholesterol, Calc VLDL Cholesterol, Calc HDL Cholesterol 18 Cholesterol/HDL Ratio 12 Current Inpatient Medications Current Inpatient Medications: Current Inpatient Medications Acetaminophen (Tylenol) 650 mg PO Q4H PRN PRN Reason: Headache or Minor Fever Stop: 04/14/20 21:52 Last Admin: 03/16/20 17:09 Dose: 650 mg Documented by: Al Hydrox/Mg Hydrox/Simethicone (Maalox) 30 ml PO Q4H PRN PRN Reason: GI Upset Stop: 04/14/20 21:52 Bismuth Subsalicylate (Kaopectate) 15 ml PO PRN PRN PRN Reason: Loose Stool Stop: 04/14/20 21:52 Buspirone HCl (Buspar) 5 mg PO BID [facility] Stop: 04/15/20 08:59 Last Admin: 03/17/20 08:39 Dose: 5 mg Documented by: Citalopram Hydrobromide (Celexa) 40 mg PO DAILY [facility] Stop: 04/15/20 08:59 Last Admin: 03/17/20 08:38 Dose: 40 mg Documented by: Clonidine HCl (Catapres) 0.1 mg PO DAILY [facility] Stop: 04/15/20 08:59 Last Admin: 03/17/20 08:39 Dose: 0.1 mg Documented by: Doxepin HCl (Sinequan) 100 mg PO HS [facility] Stop: 04/14/20 22:09 Last Admin: 03/16/20 21:20 Dose: 100 mg Documented by: Epinephrine HCl (Epipen) 0.3 mg IM UD PRN PRN Reason: Allergic Reaction Stop: 04/14/20 22:03 Fenofibrate (Tricor) 145 mg PO HS [facility] Stop: 04/14/20 22:09 Last Admin: 03/16/20 21:20 Dose: 145 mg Documented by: Hydroxyzine HCl (Vistaril) 50 mg PO HSZ PRN PRN Reason: Insomnia Stop: 04/14/20 21:52 Last Admin: 03/16/20 02:52 Dose: 50 mg Documented by: Hydroxyzine HCl (Vistaril) 25 mg PO Q4H PRN PRN Reason: Anxiety Stop: 04/14/20 21:52 Last Admin: 03/16/20 18:13 Dose: 25 mg Documented by: Levetiracetam (Keppra) 500 mg PO BID [facility] Stop: 04/14/20 22:14 Last Admin: 03/17/20 08:39 Dose: 500 mg Documented by: Lorazepam (Ativan) 1 - 3 mg PO UD PRN; Protocol PRN Reason: EtoH Withdrawal AWSS 6-10+ Stop: 04/16/20 11:51 Magnesium Hydroxide (Milk Of Magnesia) 30 ml PO DAILY PRN PRN Reason: Constipation Stop: 04/14/20 21:52 Pantoprazole Sodium ([facility]ix) [facility] Stop: 04/15/20 08:59 Last Admin: 03/17/20 08:39 Dose: 40 mg Documented by: Propranolol HCl (Inderal) 40 mg PO BID [facility] Stop: 04/14/20 22:14 Last Admin: 03/17/20 08:38 Dose: 40 mg Documented by: Quetiapine Fumarate (Seroquel) 100 mg PO [facility] Stop: 04/14/20 22:09 Last Admin: 03/16/20 21:19 Dose: 100 mg Documented by: Ropinirole HCl (Requip) 2 mg PO DAILY@1999 [facility] Stop: 04/14/20 22:59 Last Admin: 03/16/20 21:16 Dose: 2 mg Documented by: Rosuvastatin Calcium (Crestor) [facility] Stop: 04/15/20 08:59 Last Admin: 03/17/20 08:38 Dose: 10 mg Documented by: Sodium Chloride ([place] Nasal) 1 - 2 sprays NA PRN PRN PRN Reason: Nasal Dryness/Congestion Stop: 04/14/20 21:52 Mental Health & Subst Abuse Tx Psychiatrist Name of Psychiatrist: Gauri Fajardo Psychiatrist's Psychiatric Appointment Comment: [facility] Therapist Name of Therapist: Marielle Lipscomb Therapist's Date of Therapist Appointment: 03/23/20 Time of Therapist Appointment: 11:00 a.m. Therapy Appointment Comment: [address] [facility], [address] Concrete Pipe Maker Name of Concrete Pipe Maker: Denies/None Post Discharge Appointments Primary Care Physician Name Of Family Doctor: [place] - Dr. Riojas Primary Care Provider Appointment Comment: [address] [place] [address] Contact Information Discharge Discharge [address]: [address] [place] [address] (1) Depression Depression Type: unspecified Qualified Code(s): F32.9 - Major depressive disorder, single episode, unspecified
[2020-03-17 19:22] VITALS: O2SAT 96
[2020-03-17] MEDS: ROPINIROLE HCL 1 MG TABLET PO SCH (21:31)
[2020-03-17] MEDS: QUETIAPINE FUMARATE 100 MG TABLET PO SCH (21:32)
[2020-03-17] MEDS: DOXEPIN HCL 50 MG CAPSULE PO SCH (21:33)
[2020-03-17] MEDS: FENOFIBRATE NANOCRYSTALLIZED 145 MG TABLET PO SCH (21:33)
[2020-03-18] MEDS: ROSUVASTATIN CALCIUM 10 MG TAB PO SCH (08:47)
[2020-03-18] MEDS: PANTOprazole 40 MG TAB PO SCH (08:47)
[2020-03-18] MEDS: CITALOPRAM 40 MG TAB PO SCH (08:48)
[2020-03-18] MEDS: levETIRAcetam 500 MG TAB PO SCH ×2 (08:48→21:45)
[2020-03-18] MEDS: PROPRANOLOL HCL 20 MG TAB PO SCH ×2 (08:48→21:44)
[2020-03-18] MEDS: cloNIDine HCL 0.1 MG TAB PO SCH (08:48)
--- NOTE | 2020-03-18 16:33 | Psychiatric Progress Note ---
Date of Service March 18, 2020 Impression / Recommendations Impression 59-year-old male with a history of severe alcohol dependence and recurrent depression who presented with worsening mood and suicidal ideation in the context of heavy daily alcohol use and an argument with his . He went so far as to attempt to buy a gun over the weekend, but did not pass the background check. He presented for voluntary admission after talking with his outpatient counselor at [place]. He demonstrates limited insight into his addiction and minimizes his recent behavior (attempt to buy a gun). He reports his medications are helpful, but he is noncompliant with them when drinking heavily. He will need ongoing motivational interviewing with respect to his addiction and poor adherence to mental health treatment. Inpatient treatment is medically necessary due to the severity of symptoms and risk for suicide if discharged. The above concerns also occur within the context of marital discord. During his family meeting of 03/18/2020 (telephonically) his reportedly indicated that she wants to separate from him. The patient tells me that at one time the idea of from his would have been a source of great distress however, he is now saying that although he "is not exactly happy about it," he also finds that it is not particularly bothering him. An important consideration in this case is the fact that the patient has major depression independent of his abuse of mood altering chemical substances, namely alcohol, and the use of alcohol tends to feel his depression and lead to dangerous behaviors such as attempting to purchase firearms to use in a suicide attempt. He acknowledges that his is a strong sober support, and he acknowledges that if he were to separate from her and get his own apartment he is perhaps more likely to drink. This, of course, could be mitigated by a firm commitment by the patient to attend self-help groups such as AA 7 days a week, get a sponsor, and agreed to take daily medicine such as disulfiram (Antabuse). However, the patient at this point is still somewhat ambivalent about the idea and seems to focus more on the fact that he feels diminished by self-help groups such as AA then on the high risk associated with his severe alcohol dependence. The patient does note that there are certain other mitigating factors that he feels are in his favor. 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 (1) Suicidal ideation: Voluntary inpatient treatment. 15-minute checks for safety. 03/17 - Pt denies current active or passive suicidal ideation or homicidal ideation today. - Continue 15- minute checks for safety. 03/18 -Patient reports that he is not experiencing suicidal thoughts today. However, the issue in this case is not that he endorses suicidal ideations and engages in active suicidal behaviors when sober but, instead, the issue is that he has repeatedly placed himself in high risk situations while he is drinking, within the context of an underlying major depressive disorder. (2) Depression: 03/16 -Resume home doses of psychotropics; citalopram 40 mg daily, buspirone 5 mg twice daily, doxepin 100 mg at bedtime, clonidine 0.1 mg daily, and quetiapine 100 mg at bedtime. Patient had been noncompliant for the past week. Get outpatient records and coordinate with his outpatient treatment team. -FLP and FG for monitoring on an atypical antipsychotic: Last FLP reviewed from 03/2019; triglycerides 305, otherwise within normal limits. Hemoglobin A1c 5.8%. We will reorder both for tomorrow as he is due for his yearly labs. -Participate in unit groups and therapy, work on healthy coping skills and discharge safety plan. Family meeting with . 03/17 - Continue home psychotropic medications as scheduled and pt is compliant with medications. - Family meeting with his scheduled tomorrow per pt's 's request. - Continue attempts to set up aftercare appointments with psychiatrist, therapist and also treatment of alcohol dependence. - FLP obtained; triglycerides 1154 and cholesterol 212, otherwise WNL. Hemoglobin A1c result hasn't reported and if it was not obtained this time, it will be reordered. Lab results haven't reviewed with the patient yet. -The patient agreed to retract his 72-hour request for release, and is now remaining as a voluntary patient, at least through the weekend. (3) Alcohol dependence: 03/16 -continue AWSS protocol for alcohol withdrawal. Avoid medications that are addictive or abusable due to high risk of abuse/misuse/negative outcomes. -Brief intervention was offered and accepted Intervention was greater than 5 min in length. Brief interventions include: 1. Assess Readiness to Quit, 2. Advise: Help Patient to Reduce or Abstain from Alcohol, 3. Agree: Set Specific, Feasible Goals, 4. Assist: Anticipate barriers, Problem-Solving Solutions. Social work to 5. Arrange: Referrals to appropriate treatment. Summary of intervention: The patient is in contemplation stage with regards to transtheoretical model of change. The patient is advised to decrease alcohol consumption due to depressant effects and risk of interactions with prescription medications. The patient agreed to IOP and will be provided with recovery materials to continue to education self on how to cope with their condition without drinking. Recommendations are for inpatient rehab, as he has failed outpatient care, with a stepdown to IOP and peers support groups once completed. He is not willing to consider this at this time, and feels he can stop drinking on his own. 03/17 - Continue AWSS protocol for alcohol withdrawal. Ativan PO ordered since pt's AWSS score was 6 today when his anxiety got worse after hearing that scheduled family meeting was canceled per pt's 's request. - Continue attempts to set up aftercare treatment to address alcohol dependence. 03/18 -Continue AWSS protocol for alcohol withdrawal. -Today we focused on the issue of the patient's tendency to minimize his need for a full commitment to achieving and sustaining sobriety. I recommended that he avail himself of "7 and 7" which refers to 7 AA meetings a week for at least 7 weeks. The patient's responses to say, essentially, that he feels that AA is "a little demeaning," and that he prefers to go to a different self-help program that he can do "just once a week." -In addition to confronting the patient about his tendency to minimize the degree of his alcohol dependence in the serious complications and adverse outcomes that have ensued, we also talked about relapse triggers. He understands that stress and change, as well as lack of structure are for him triggers for alcohol relapse. However, it seems to have not occurred to him that separation from his may be considered a trigger given his report that lack of structure and "change" are likely to be the result of his ending his marriage. (4) Seizure disorder: 03/16 -continue home dose of Keppra, follow-up as directed with Dr. Hooks. (5) RLS (restless legs syndrome): 03/16 -continue home dose of ropinirole; follow-up with Dr. Hooks. (6) Hyperlipidemia: 03/16 -continue home dose of Crestor. FLP as above. (7) Hypertension: 03/16 -continue home doses of propanolol and clonidine. Risk Factors Assessment Male: Yes : Yes Health Problems: Yes Mental Health Diagnoses: Yes Substance Use Disorders: Yes Previous Attempt: No Family History of Suicide: No Previous Psychiatric Hospitalization: Yes Hopelessness: Yes Smoker: Yes Protective Factors Assessment : Yes Responsible for Young Children: No Employed: No Stable Relationships: Yes Supportive Family: Yes Good Rapport with Provider: Yes Interval History Identifying Information FRED HOGAN is a 59-year-old M who currently lives in [place] with his , has a history of recurrent depression and alcohol dependence, and was admitted on 03/15/20 21:54 on a 201 voluntary commitment for suicidality after he tried to buy a gun in the context of an argument with his and relapse on alcohol. Chief Complaint "I messed up again". Review of Systems Sleep Information Total Hours of Sleep: 4.5 Sleep Comments: pt appeared to fall asleep @ 0330 and thereafter. pt on q-15 minute checks Meal Information Percent Meal Consumed - Breakfast: 100 Percent Meal Consumed - Lunch: 100 Percent Meal Consumed - Dinner: 100 Subjective Subjective Patient was seen & assessed and interval progress reviewed with treatment team. I met individually with the patient in order to assess his current mental status, evaluate his response to treatment, coordinate any necessary changes in his treatment regimen with the patient, and address questions, issues and concerns that may arise. The patient had just come from a telephonic family meeting with his . He tells me that his has come behind his back, open her own account banking account and has accrued a significant amount of funds. Although the patient knows that his has not taken money that was rightfully his, and that, instead, she has been finding the account with her own money, he is troubled by what he feels is duplicitous behavior on her part. He also recognizes that she is most likely doing this because she is considering from him. He notes that, in fact, this was discussed during the meeting with his today, although he said that further discussions are indicated because she has not been entirely clear about what she expects. Later, however, he told me that 1 of his goals for next week is to contact a molding sander and obtain legal advice. The patient reviewed his history subsequent to his discharge from his most recent previous psychiatric hospitalization in April 2019. Upon release from [place] [facility] April he maintained sobriety for a time, but then relapsed, and to his credit followed through on his promise to enter rehab should he relapse again. The patient admitted himself for detox and rehabilitation at [facility] rehab center. He experienced some alcohol withdrawal at that point, and says that he "worked hard" in the rehab program. Subsequent to his discharge from the chemical dependency residential treatment program he remained sober through the months of July, August, September, and October. However, he relapsed in November, stopped drinking for several weeks, and then relapsed a number of other times. The current admission, not entirely unlike his most recent previous admission, occurred after the patient attempted to buy a firearm. This time, the patient was advised that because of the 302 petition executed last summer he was in eligible to purchase a gun. Initially today the patient tells me that "I try to buy a gun in part because I was curious to see whether or not they would actually sell me 1. I never got any paperwork, I never had a hearing, I called the court house and they had no information for me, so I thought the only way to find out was to try to buy a gun." However, when I gave him a dubious look, he smiled slightly and said, "yes, I was also thinking about suicide. I was drinking and really down." Also, today, the patient acknowledges that he had not been taking his psychiatric medications. He tells me that when he does take his psychiatric medications as prescribed by his prescriber at [facility] [place] he feels he does quite well. However, he tends to stop taking his medication when he is doing well and, often, relapse follows. More often, however, he says that he starts drinking while still adherent with his medications and then stops the medications because he is drinking. We talked at some length today about his relapse triggers, which primarily includes stress and boredom. We focused primarily, however, on developing strategies that he can access in order to maintain sobriety following discharge. I suggested that he consider returning for further residential rehabilitation treatment, but he responded to that by saying, "it was good. It really helped. But I feel I learned everything I need to learn." I pointed out that that may be true, but it would appear not to be given the fact that he relapsed a number of times subsequent to his release from the rehab program. Also, I suggested that if he does not want to go to rehab I would recommend what is referred to as "7 and 7" which refers to an AA meeting 7 days a week for 7 consecutive weeks. The patient responded that by saying "I do not really like AA. I find it to meaning. I like "SMART Recovery". But when I replied, "okay. 7 of those meetings for 7 weeks," the patient said, "Well, that really is not possible because the only meet 1 day a week." I spoke very frankly with the patient about the fact that he does not seem to be fully committed to achieving sobriety and may still be minimizing the risks associated with relapse in his case. I said that, quite frankly, not only is he alcoholic, he is an alcoholic who has now ended up psychiatrically hospitalized with close call suicide plans in less than a year, and I invited him to get "very serious" about recovery. The p atient said that he would commit to this, but then when I advised him that I am aware that he was put in a 72-hour notice to leave treatment yesterday and that the notices up on Saturday and that we do not feel that he will be ready to leave the hospital by Saturday, the patient said that he he "feels ready." Initially though the patient said "well, if you do not think I am ready, I guess I will stay." He subsequently retracted his 72-hour request. Physical Exam Psychiatric Orientation: alert, oriented x 3 and cooperative Apperance: appropriately dressed and appropriately groomed Eye Contact: + fair eye contact Motor Behavior: steady gait and station Speech: normal rate/rhythm/volume of speech Affect: + depressed affect "It has been better." Thought Process: linear/logical thought process Thought Content: reality based without delusions Suicidal Thoughts: denies suicidal thoughts The patient does acknowledge today that his attempt to purchase a gun shortly prior to the current admission was, contrary to his previous assertions, part of a plan to commit suicide by gunshot wound. Homicidal Thoughts: denies homicidal thoughts Hallucinations: no auditory hallucinations, no visual hallucinations and no tactile hallucinations Cognition: recent memory grossly intact, remote memory grossly intact, attention grossly intact and language grossly intact Estimated Intelligence: + above average estimated intelligence Insight: + poor insight Judgement: + fair judgement Vital Signs (Past 24 Hours) Last Vital Signs Temp 36.6 C 03/18/20 14:14 Pulse 63 03/18/20 14:14 Resp 18 03/18/20 14:14 BP 140/92 03/18/20 14:14 Pulse Ox 96 03/17/20 18:00 Results & Data ([facility]) Current Inpatient Medications Current Inpatient Medications: Current Inpatient Medications Acetaminophen (Tylenol) 650 mg PO Q4H PRN PRN Reason: Headache or Minor Fever Stop: 04/14/20 21:52 Last Admin: 03/16/20 17:09 Dose: 650 mg Documented by: Al Hydrox/Mg Hydrox/Simethicone (Maalox) 30 ml PO Q4H PRN PRN Reason: GI Upset Stop: 04/14/20 21:52 Bismuth Subsalicylate (Kaopectate) 15 ml PO PRN PRN PRN Reason: Loose Stool Stop: 04/14/20 21:52 Buspirone HCl (Buspar) 5 mg PO BID [facility] Stop: 04/15/20 08:59 Last Admin: 03/18/20 08:48 Dose: 5 mg Documented by: Citalopram Hydrobromide (Celexa) 40 mg PO DAILY [facility] Stop: 04/15/20 08:59 Last Admin: 03/18/20 08:48 Dose: 40 mg Documented by: Clonidine HCl (Catapres) 0.1 mg PO DAILY [facility] Stop: 04/15/20 08:59 Last Admin: 03/18/20 08:48 Dose: 0.1 mg Documented by: Doxepin HCl (Sinequan) 100 mg PO [facility] Stop: 04/14/20 22:09 Last Admin: 03/17/20 21:33 Dose: 100 mg Documented by: Epinephrine HCl (Epipen) 0.3 mg IM UD PRN PRN Reason: Allergic Reaction Stop: 04/14/20 22:03 Fenofibrate (Tricor) 145 mg PO HS [facility] Stop: 04/14/20 22:09 Last Admin: 03/17/20 21:33 Dose: 145 mg Documented by: Hydroxyzine HCl (Vistaril) 50 mg PO HSZ PRN PRN Reason: Insomnia Stop: 04/14/20 21:52 Last Admin: 03/16/20 02:52 Dose: 50 mg Documented by: Hydroxyzine HCl (Vistaril) 25 mg PO Q4H PRN PRN Reason: Anxiety Stop: 04/14/20 21:52 Last Admin: 03/18/20 13:53 Dose: 25 mg Documented by: Levetiracetam (Keppra) 500 mg PO BID [facility] Stop: 04/14/20 22:14 Last Admin: 03/18/20 08:48 Dose: 500 mg Documented by: Lorazepam (Ativan) 1 - 3 mg PO UD PRN; Protocol PRN Reason: EtoH Withdrawal AWSS 6-10+ Stop: 04/16/20 11:51 Magnesium Hydroxide (Milk Of Magnesia) 30 ml PO DAILY PRN PRN Reason: Constipation Stop: 04/14/20 21:52 Pantoprazole Sodium ([facility]ix) [facility] Stop: 04/15/20 08:59 Last Admin: 03/18/20 08:47 Dose: 40 mg Documented by: Propranolol HCl (Inderal) 40 mg PO BID [facility] Stop: 04/14/20 22:14 Last Admin: 03/18/20 08:48 Dose: 40 mg Documented by: Quetiapine Fumarate (Seroquel) 100 mg PO [facility] Stop: 04/14/20 22:09 Last Admin: 03/17/20 21:32 Dose: 100 mg Documented by: Ropinirole HCl (Requip) 2 mg PO DAILY@1999 [facility] Stop: 04/14/20 22:59 Last Admin: 03/17/20 21:31 Dose: 2 mg Documented by: Rosuvastatin Calcium (Crestor) [facility] Stop: 04/15/20 08:59 Last Admin: 05/29/20 08:47 Dose: 10 mg Documented by: Sodium Chloride ([place] Nasal) 1 - 2 sprays NA PRN PRN PRN Reason: Nasal Dryness/Congestion Stop: 04/14/20 21:52 Mental Health & Subst Abuse Tx Psychiatrist Name of Psychiatrist: Gauri Fajardo Psychiatrist's Date of Appointment with Psychiatrist: 03/29/20 Time of Appointment with Psychiatrist: 2:00 p.m. Psychiatric Appointment Comment: In person unless told otherwise Therapist Name of Therapist: Marielle Lipscomb Therapist's Date of Therapist Appointment: 03/23/20 Time of Therapist Appointment: 11:00 a.m. Therapy Appointment Comment: [address] [facility] [place], [address], [place] Study Manager Name of Study Manager: Denies/None Post Discharge Appointments Primary Care Physician Name Of Family Doctor: [facility] - Dr. Riojas Primary Care Provider Appointment Comment: [address] [facility] [place] [address] Contact Information Discharge Discharge [address]: [address] [place] [id number] (1) Depression Depression Type: unspecified Qualified Code(s): F32.9 - Major depressive disorder, single episode, unspecified
[2020-03-18] MEDS: ROPINIROLE HCL 1 MG TABLET PO SCH (21:42)
[2020-03-18] MEDS: QUETIAPINE FUMARATE 100 MG TABLET PO SCH (21:45)
[2020-03-18] MEDS: DOXEPIN HCL 50 MG CAPSULE PO SCH (21:46)
[2020-03-18] MEDS: FENOFIBRATE NANOCRYSTALLIZED 145 MG TABLET PO SCH (21:47)
--- NOTE | 2020-03-19 07:06 | Psychiatric Progress Note ---
Date of Service March 19, 2020 Impression / Recommendations Impression 59-year-old male with a history of severe alcohol dependence and recurrent depression who presented with worsening mood and suicidal ideation in the context of heavy daily alcohol use and an argument with his , who has now informed him she would like to separate. He left on a 1 week heavy drinking binge, and endorsed suicidality to his therapist and friends after he went to a store and tried to buy a gun to kill himself over the weekend, but did not pass the background check. He presented for voluntary admission after talking with his outpatient counselor at [facility]. He demonstrates limited insight into his addiction and minimizes his recent behavior and the impact to his marriage. He reports his medications are helpful, but he is noncompliant with them when drinking. He will need ongoing motivational interviewing with respect to his addiction and poor adherence to mental health treatment. Inpatient treatment is medically necessary due to the severity of symptoms and risk for suicide if discharged. (1) Suicidal ideation: Voluntary inpatient treatment. 15-minute checks for safety. 03/17 - Pt denies current active or passive suicidal ideation or homicidal ideation today. - Continue 15- minute checks for safety. 03/18 -Patient reports that he is not experiencing suicidal thoughts today. However, the issue in this case is not that he endorses suicidal ideations and engages in active suicidal behaviors when sober but, instead, the issue is that he has repeatedly placed himself in high risk situations while he is drinking, within the context of an underlying major depressive disorder. (2) Depression: 03/16 -Resume home doses of psychotropics; citalopram 40 mg daily, buspirone 5 mg twice daily, doxepin 100 mg at bedtime, clonidine 0.1 mg daily, and quetiapine 100 mg at bedtime. Patient had been noncompliant for the past week. Get outpatient records and coordinate with his outpatient treatment team. -FLP and FG for monitoring on an atypical antipsychotic: Last FLP reviewed from 03/2019; triglycerides 305, otherwise within normal limits. Hemoglobin A1c 5.8%. We will reorder both for tomorrow as he is due for his yearly labs. -Participate in unit groups and therapy, work on healthy coping skills and discharge safety plan. Family meeting with . 03/17 - Continue home psychotropic medications as scheduled and pt is compliant with medications. - Family meeting with his scheduled tomorrow per pt's 's request. - Continue attempts to set up aftercare appointments with psychiatrist, therapist and also treatment of alcohol dependence. - FLP obtained; triglycerides 1154 and cholesterol 212, otherwise WNL. Hemoglobin A1c result hasn't reported and if it was not obtained this time, it will be reordered. Lab results haven't reviewed with the patient yet. -The patient agreed to retract his 72-hour request for release, and is now remaining as a voluntary patient, at least through the weekend. 03/18 - During his family meeting of 03/18/2020 his indicated that she wants to separate from him. The patient tells me that at one time the idea of separa biankag from his would have been a source of great distress however, he is now saying that although he "is not exactly happy about it," he also finds that it is not particularly bothering him. An important consideration in this case is the fact that the patient has major depression independent of his abuse of mood altering chemical substances, namely alcohol, and the use of alcohol tends to feel his depression and lead to dangerous behaviors such as attempting to purchase firearms to use in a suicide attempt. He acknowledges that his is a strong sober support, and he acknowledges that if he were to separate from her and get his own apartment he is perhaps more likely to drink. This, of course, could be mitigated by a firm commitment by the patient to attend self-help groups such as AA 7 days a week, get a sponsor, and agreed to take daily medicine such as disulfiram (Antabuse). However, the patient at this point is still somewhat ambivalent about the idea and seems to focus more on the fact that he feels diminished by self-help groups such as AA then on the high risk associated with his severe alcohol dependence. The patient does note that there are certain other mitigating factors that he feels are in his favor. 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 03/19 - today patient is minimizing the family meeting, stating that he felt it went well and that he and his are reconciled. -Continue current medications, and encourage group attendance and participation. (3) Alcohol dependence: 03/16 -continue AWSS protocol for alcohol withdrawal. Avoid medications that are addictive or abusable due to high risk of abuse/misuse/negative outcomes. -Brief intervention was offered and accepted Intervention was greater than 5 min in length. Brief interventions include: 1. Assess Readiness to Quit, 2. Advise: Help Patient to Reduce or Abstain from Alcohol, 3. Agree: Set Specific, Feasible Goals, 4. Assist: Anticipate barriers, Problem-Solving Solutions. Social work to 5. Arrange: Referrals to appropriate treatment. Summary of intervention: The patient is in contemplation stage with regards to transtheoretical model of change. The patient is advised to decrease alcohol consumption due to depressant effects and risk of interactions with prescription medications. The patient agreed to IOP and will be provided with recovery materials to continue to education self on how to cope with their condition without drinking. Recommendations are for inpatient rehab, as he has failed outpatient care, with a stepdown to IOP and peers support groups once completed. He is not willing to consider this at this time, and feels he can stop drinking on his own. 03/17 - Continue AWSS protocol for alcohol withdrawal. Ativan PO ordered since pt's AWSS score was 6 today when his anxiety got worse after hearing that scheduled family meeting was canceled per pt's 's request. - Continue attempts to set up aftercare treatment to address alcohol dependence. 03/18 -Continue AWSS protocol for alcohol withdrawal. -Today we focused on the issue of the patient's tendency to minimize his need for a full commitment to achieving and sustaining sobriety. I recommended that he avail himself of "7 and 7" which refers to 7 AA meetings a week for at least 7 weeks. The patient's responses to say, essentially, that he feels that AA is "a little demeaning," and that he prefers to go to a different self-help program that he can do "just once a week." -In addition to confronting the patient about his tendency to minimize the degree of his alcohol dependence in the serious complications and adverse outcomes that have ensued, we also talked about relapse triggers. He understands that stress and change, as well as lack of structure are for him triggers for alcohol relapse. However, it seems to have not occurred to him that separation from his may be considered a trigger given his report that lack of structure and "change" are likely to be the result of his ending his marriage. 03/19 -Ongoing evidence of limited insight into his addiction. Unwilling to even consider inpatient rehab. Encouraged him to contact his substance abuse counselor at [facility] on Saturday to discuss treatment recommendations with her. He is unwilling to consider AA, and dismissive of treatment recommendations in general. (4) Seizure disorder: 03/16 -continue home dose of Keppra, follow-up as directed with Dr. Hooks. (5) RLS (restless legs syndrome): 03/16 -continue home dose of ropinirole; follow-up with Dr. Hooks. (6) Hyperlipidemia: 03/16 -continue home dose of Crestor. FLP as above. (7) Hypertension: 03/16 -continue home doses of propanolol and clonidine. Risk Factors Assessment Male: Yes : Yes Health Problems: Yes Mental Health Diagnoses: Yes Substance Use Disorders: Yes Previous Attempt: No Family History of Suicide: No Previous Psychiatric Hospitalization: Yes Hopelessness: Yes Smoker: Yes Protective Factors Assessment : Yes Responsible for Young Children: No Employed: No Stable Relationships: Yes Supportive Family: Yes Good Rapport with Provider: Yes Interval History Identifying Information FRED HOGAN is a 59-year-old M who currently lives in [place] with his , has a history of recurrent depression and alcohol dependence, and was admitted on 03/15/20 21:54 on a 201 voluntary commitment for suicidality after he tried to buy a gun in the context of an argument with his and alcohol abuse. His has now communicated her intent to separate, and he submitted but then rescinded a 72 hour notice. Chief Complaint " It's been a roller coaster". Review of Systems Notes Denies withdrawal symptoms Sleep Information Total Hours of Sleep: 5.75 Sleep Comments: pt appeared to fall asleep @ 0330 and thereafter. pt on q-15 minute checks Meal Information Percent Meal Consumed - Breakfast: 100 Percent Meal Consumed - Lunch: 100 Percent Meal Consumed - Dinner: 100 Subjective Subjective Patient was seen & assessed and interval progress reviewed with nursing and social work. Staff report he had a difficult meeting with his where she informed him she wants to separate, but they were unable to make a plan to move forward. On my assessment, he states that his mood has been changing from minute to minute. He feels that he is doing better, and his interpretation of the meeting with his was that she was thinking about leaving him, but now they are going to reconcile. He is feeling more optimistic about the future, and denies suicidal thoughts, stating "I know some of what I said was alarming, but I don't think I was very serious." He wants to know "what's it say about me there? What did you write?" Referencing my clipboard/notes. He reports good sleep last night, but describes it as "really erratic." He feels he is on a good combination of medications. He complains about staff not being "cohesive," but says "you probably don't have time for that." He did not want to explain this comment and further, and acted confused about the treatment recommendations. Reviewed those with him, including the recommendation for more intensive addiction treatment, which he was adamantly opposed to, stating "I'm not going back to rehab, I'm just not doing it." Physical Exam Psychiatric Orientation: alert and cooperative Apperance: appropriately dressed, appropriately groomed and appeared stated age Eye Contact: + poor eye contact Looks out the window or at the ceiling, limited eye contact Motor Behavior: no abnormal motor movements Slow, rambling, halting speech, often starts a sentence and then does not finish it, sighs as if exasperated Affect: + irritable affect; + mood not congruent with affect Asked slightly confused, befuddled "It has been a roller coaster," reporting mood changing minute per minute, then later stating he is "I think I'm fine." Thought Process: + thought process not clear or coherent Superficial answers, vague statements Thought Content: + cognitive distortions Suicidal Thoughts: denies suicidal thoughts Homicidal Thoughts: denies homicidal thoughts Hallucinations: no auditory hallucinations Cognition: + recent memory not intact and + attention not intact Insight: + poor insight Judgement: + poor judgement Vital Signs (Past 24 Hours) Last Vital Signs Temp 36.6 C 03/18/20 14:14 Pulse 63 03/18/20 14:14 Resp 18 03/18/20 14:14 BP 140/92 03/18/20 14:14 Pulse Ox 96 03/17/20 18:00 Results & Data ([facility]) Current Inpatient Medications Current Inpatient Medications: Current Inpatient Medications Acetaminophen (Tylenol) 650 mg PO Q4H PRN PRN Reason: Headache or Minor Fever Stop: 04/14/20 21:52 Last Admin: 03/16/20 17:09 Dose: 650 mg Documented by: Al Hydrox/Mg Hydrox/Simethicone (Maalox) 30 ml PO Q4H PRN PRN Reason: GI Upset Stop: 04/14/20 21:52 Bismuth Subsalicylate (Kaopectate) 15 ml PO PRN PRN PRN Reason: Loose Stool Stop: 04/14/20 21:52 Buspirone HCl (Buspar) 5 mg PO BID [facility] Stop: 04/15/20 08:59 Last Admin: 03/18/20 21:43 Dose: 5 mg Documented by: Citalopram Hydrobromide (Celexa) 40 mg PO DAILY L[facility]LEE Stop: 04/15/20 08:59 Last Admin: 03/18/20 08:48 Dose: 40 mg Documented by: Clonidine HCl (Catapres) 0.1 mg PO DAILY LESLEE Stop: 04/15/20 08:59 Last Admin: 03/18/20 08:48 Dose: 0.1 mg Documented by: Doxepin HCl (Sinequan) 100 mg PO HS LESLEE Stop: 04/14/20 22:09 Last Admin: 03/18/20 21:46 Dose: 100 mg Documented by: Epinephrine HCl (Epipen) 0.3 mg IM UD PRN PRN Reason: Allergic Reaction Stop: 04/14/20 22:03 Fenofibrate (Tricor) 145 mg PO HS LESLEE Stop: 04/14/20 22:09 Last Admin: 03/18/20 21:47 Dose: 145 mg Documented by: Hydroxyzine HCl (Vistaril) 50 mg PO HSZ PRN PRN Reason: Insomnia Stop: 04/14/20 21:52 Last Admin: 03/16/20 02:52 Dose: 50 mg Documented by: Hydroxyzine HCl (Vistaril) 25 mg PO Q4H PRN PRN Reason: Anxiety Stop: 04/14/20 21:52 Last Admin: 03/18/20 13:53 Dose: 25 mg Documented by: Levetiracetam (Keppra) 500 mg PO BID [facility] Stop: 04/14/20 22:14 Last Admin: 03/18/20 21:45 Dose: 500 mg Documented by: Lorazepam (Ativan) 1 - 3 mg PO UD PRN; Protocol PRN Reason: EtoH Withdrawal AWSS 6-10+ Stop: 04/16/20 11:51 Magnesium Hydroxide (Milk Of Magnesia) 30 ml PO DAILY PRN PRN Reason: Constipation Stop: 04/14/20 21:52 Pantoprazole Sodium (Protonix) 40 mg PO QAM [facility] Stop: 04/15/20 08:59 Last Admin: 03/18/20 08:47 Dose: 40 mg Documented by: Propranolol HCl (Inderal) 40 mg PO BID [facility] Stop: 04/14/20 22:14 Last Admin: 03/18/20 21:44 Dose: 40 mg Documented by: Quetiapine Fumarate (Seroquel) 100 mg PO HS [facility] Stop: 04/14/20 22:09 Last Admin: 03/18/20 21:45 Dose: 100 mg Documented by: Ropinirole HCl (Requip) 2 mg PO DAILY@1999 [facility] Stop: 04/14/20 22:59 Last Admin: 03/18/20 21:42 Dose: 2 mg Documented by: Rosuvastatin Calcium (Crestor) 10 mg PO QAM [facility] Stop: 04/15/20 08:59 Last Admin: 03/18/20 08:47 Dose: 10 mg Documented by: Sodium Chloride (Rosebud Nasal) 1 - 2 sprays NA PRN PRN PRN Reason: Nasal Dryness/Congestion Stop: 04/14/20 21:52 Mental Health & Subst Abuse Tx Psychiatrist Name of Psychiatrist: Gauri Fajardo Psychiatrist's Date of Appointment with Psychiatrist: 03/29/20 Time of Appointment with Psychiatrist: 2:00 p.m. Psychiatric Appointment Comment: In person unless told otherwise Therapist Name of Therapist: Marielle Lipscomb Therapist's Date of Therapist Appointment: 03/23/20 Time of Therapist Appointment: 11:00 a.m. Therapy Appointment Comment: [address], [address], [place] Manager Of Broadcast Content Name of Manager Of Broadcast Content: Denies/None Post Discharge Appointments Primary Care Physician [facility] Primary Care Provider Appointment Comment: [address] [place] [id number] Contact Information Discharge Discharge [address]: [address] [place], [place] [id number] (1) Depression Depression Type: unspecified Qualified Code(s): F32.9 - Major depressive disorder, single episode, unspecified
[2020-03-19] MEDS: cloNIDine HCL 0.1 MG TAB PO SCH (07:45)
[2020-03-19] MEDS: CITALOPRAM 40 MG TAB PO SCH (07:46)
[2020-03-19] MEDS: levETIRAcetam 500 MG TAB PO SCH ×2 (07:46→21:32)
[2020-03-19] MEDS: ROSUVASTATIN CALCIUM 10 MG TAB PO SCH (07:46)
[2020-03-19] MEDS: PROPRANOLOL HCL 20 MG TAB PO SCH ×2 (07:46→21:33)
[2020-03-19] MEDS: PANTOprazole 40 MG TAB PO SCH (07:46)
[2020-03-19] MEDS: ROPINIROLE HCL 1 MG TABLET PO SCH (19:56)
[2020-03-19] MEDS: DOXEPIN HCL 50 MG CAPSULE PO SCH (21:33)
[2020-03-19] MEDS: FENOFIBRATE NANOCRYSTALLIZED 145 MG TABLET PO SCH (21:33)
[2020-03-19] MEDS: QUETIAPINE FUMARATE 100 MG TABLET PO SCH (21:34)
--- NOTE | 2020-03-20 07:05 | Psychiatric Progress Note ---
Date of Service March 20, 2020 Impression / Recommendations Impression 59-year-old male with a history of severe alcohol dependence and recurrent depression who presented with worsening mood and suicidal ideation in the context of heavy daily alcohol use and an argument with his , who has now informed him she would like to separate. He left on a 1 week heavy drinking binge, and endorsed suicidality to his therapist and friends after he went to a store and tried to buy a gun to kill himself over the weekend, but did not pass the background check. He presented for voluntary admission after talking with his outpatient counselor at [facility]. He demonstrates limited insight into his addiction and minimizes his recent behavior and the impact to his marriage, and appears to have a significant amount of denial, and possibly narcissistic traits. He reports his medications are helpful, but he is noncompliant with them when drinking. He will need ongoing motivational interviewing with respect to his addiction and poor adherence to mental health treatment. Inpatient treatment is medically necessary due to the severity of symptoms and risk for suicide if discharged. (1) Suicidal ideation: Voluntary inpatient treatment. 15-minute checks for safety. 03/17 - Pt denies current active or passive suicidal ideation or homicidal ideation today. - Continue 15- minute checks for safety. 03/18 -Patient reports that he is not experiencing suicidal thoughts today. However, the issue in this case is not that he endorses suicidal ideations and engages in active suicidal behaviors when sober but, instead, the issue is that he has repeatedly placed himself in high risk situations while he is drinking, within the context of an underlying major depressive disorder. (2) Depression: 03/16 -Resume home doses of psychotropics; citalopram 40 mg daily, buspirone 5 mg twice daily, doxepin 100 mg at bedtime, clonidine 0.1 mg daily, and quetiapine 100 mg at bedtime. Patient had been noncompliant for the past week. Get outpatient records and coordinate with his outpatient treatment team. -FLP and FG for monitoring on an atypical antipsychotic: Last FLP reviewed from 03/2019; triglycerides 305, otherwise within normal limits. Hemoglobin A1c 5.8%. We will reorder both for tomorrow as he is due for his yearly labs. -Participate in unit groups and therapy, work on healthy coping skills and discharge safety plan. Family meeting with . 5/28 - Continue home psychotropic medications as scheduled and pt is compliant with medications. - Family meeting with his scheduled tomorrow per pt's 's request. - Continue attempts to set up aftercare appointments with psychiatrist, therapist and also treatment of alcohol dependence. - FLP obtained; triglycerides 154 and cholesterol 212, otherwise WNL. Hemoglobin A1c result hasn't reported and if it was not obtained this time, it will be reordered. Lab results haven't reviewed with the patient yet. -The patient agreed to retract his 72-hour request for release, and is now remaining as a voluntary patient, at least through the weekend. 03/18 - During his family meeting of 03/18/2020 his indicated that she wants to separate from him. The patient tells me that at one time the idea of from his would have been a source of great distress however, he is now saying that although he "is not exactly happy about it," he also finds that it is not particularly bothering him. An important consideration in this case is the fact that the patient has major depression independent of his abuse of mood altering chemical substances, namely alcohol, and the use of alcohol tends to feel his depression and lead to dangerous behaviors such as attempting to purchase firearms to use in a suicide attempt. He acknowledges that his is a strong sober support, and he acknowledges that if he were to separate from her and get his own apartment he is perhaps more likely to drink. This, of course, could be mitigated by a firm commitment by the patient to attend self- help groups such as AA 7 days a week, get a sponsor, and agreed to take daily medicine such as disulfiram (Antabuse). However, the patient at this point is still somewhat ambivalent about the idea and seems to focus more on the fact that he feels diminished by self-help groups such as AA then on the high risk associated with his severe alcohol dependence. The patient does note that there are certain other mitigating factors that he feels are in his favor. 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 03/19 - today patient is minimizing the family meeting, stating that he felt it went well and that he and his are reconciled. -Continue current medications, and encourage group attendance and participation. 03/20 -patient confronted with his reports that he and his had reconciled and he was returning home, as she reported that she asked him to move out. He appears to be in complete denial, both about his alcoholism and the status of his marriage. He remains at extremely high risk for suicide currently, especially if he continues to abuse alcohol. -Second family meeting to be held with today, patient wrongly encouraged to go to rehab to address his addiction, which she is refusing. Also encouraged him to explore alternative housing options, specifically living with friends or family in order to decrease his risk of relapse (as opposed to going to a hotel alone). (3) Alcohol dependence: 03/16 -continue AWSS protocol for alcohol withdrawal. Avoid medications that are addictive or abusable due to high risk of abuse/misuse/negative outcomes. -Brief intervention was offered and accepted Intervention was greater than 5 min in length. Brief interventions include: 1. Assess Readiness to Quit, 2. Advise: Help Patient to Reduce or Abstain from Alcohol, 3. Agree: Set Specific, Feasible Goals, 4. Assist: Anticipate barriers, Problem-Solving Solutions. Social work to 5. Arrange: Referrals to appropriate treatment. Summary of intervention: The patient is in contemplation stage with regards to transtheoretical model of change. The patient is advised to decrease alcohol consumption due to depressant effects and risk of interactions with prescription medications. The patient agreed to IOP and will be provided with recovery m aterials to continue to education self on how to cope with their condition without drinking. Recommendations are for inpatient rehab, as he has failed outpatient care, with a stepdown to IOP and peers support groups once completed. He is not willing to consider this at this time, and feels he can stop drinking on his own. 03/17 - Continue AWSS protocol for alcohol withdrawal. Ativan PO ordered since pt's AWSS score was 6 today when his anxiety got worse after hearing that scheduled family meeting was canceled per pt's 's request. - Continue attempts to set up aftercare treatment to address alcohol dependence. 03/18 -Continue AWSS protocol for alcohol withdrawal. -Today we focused on the issue of the patient's tendency to minimize his need for a full commitment to achieving and sustaining sobriety. I recommended that he avail himself of "7 and 7" which refers to 7 AA meetings a week for at least 7 weeks. The patient's responses to say, essentially, that he feels that AA is "a little demeaning," and that he prefers to go to a different self-help program that he can do "just once a week." -In addition to confronting the patient about his tendency to minimize the degree of his alcohol dependence in the serious complications and adverse outcomes that have ensued, we also talked about relapse triggers. He understands that stress and change, as well as lack of structure are for him triggers for alcohol relapse. However, it seems to have not occurred to him that separation from his may be considered a trigger given his report that lack of structure and "change" are likely to be the result of his ending his marriage. 03/19 -Ongoing evidence of limited insight into his addiction. Unwilling to even consider inpatient rehab. Encouraged him to contact his substance abuse counselor at [facility] on Saturday to discuss treatment recommendations with her. He is unwilling to consider AA, and dismissive of treatment recommendations in general. 03/20 -Again reviewed recommendations for rehab, which she is unwilling to consider. We will coordinate care with Deisi at [facility] tomorrow to update her on the situation and get her input. He did indicate a willingness to return to [facility] there, but I fear this will not be sufficient given the severity of his substance abuse. (4) Seizure disorder: 03/16 -continue home dose of Keppra, follow-up as directed with Dr. Hooks. (5) RLS (restless legs syndrome): 03/16 -continue home dose of ropinirole; follow-up with Dr. Hooks. (6) Hyperlipidemia: 03/16 -continue home dose of Crestor. FLP as above. (7) Hypertension: 03/16 -continue home doses of propanolol and clonidine. Risk Factors Assessment Male: Yes : Yes Health Problems: Yes Mental Health Diagnoses: Yes Substance Use Disorders: Yes Previous Attempt: No Family History of Suicide: No Previous Psychiatric Hospitalization: Yes Hopelessness: Yes Smoker: Yes Protective Factors Assessment : Yes Responsible for Young Children: No Employed: No Stable Relationships: Yes Supportive Family: Yes Good Rapport with Provider: Yes Interval History Identifying Information FRED HOGAN is a 59-year-old M who currently lives in [place] with his , has a history of recurrent depression and alcohol dependence, and was admitted on 03/15/20 21:54 on a 201 voluntary commitment for suicidality after he tried to buy a gun in the context of an argument with his and alcohol abuse. His has now communicated her intent to separate, and he submitted but then rescinded a 72 hour notice. Chief Complaint " Wow what a day". Review of Systems Notes 10 systems reviewed; negative except as stated above. Sleep Information Total Hours of Sleep: 5 Sleep Comments: patient had complaints of anxiety provoking dreams Meal Information Percent Meal Consumed - Breakfast: 100 Percent Meal Consumed - Lunch: 100 Percent Meal Consumed - Dinner: 100 Subjective Subjective Patient was seen & assessed and interval progress reviewed with nursing and social work. Staff report he was given the [facility] Recovery Protocol book and instructed to complete "Life Story" and share with staff when completed. He josé led his with staff encouragement and remains convinced they will reconcile. He requested prn medication after talking with her. On my assessment, he states that yesterday he had wildly changing moods, "started out low and ended high, had a couple of epiphanies about the progression, what does ongoing recovery look like, I think I need to answer that before I can go on." He says he had a good talk with his son who told him that he was proud of him, and also a good talk with his , stating "we've got some work to do, but I think she wants to go forward together, which was relieved to me." He says that he will be returning home to live with her, and hopes to be discharged tomorrow. He says he does not see himself as an alcoholic, and does not like the term alcohol abuse or addiction either, but recognizes that he has had problems related to drinking. He says that one of his epiphanies was that "I don't just want to get out, I want to get healthy. I feel more committed to the process of getting better." He says he is willing to do "what ever you guys recommend" with respect to treatment, but then adamantly refuses to consider inpatient rehab, stating he does not need it, and is also refusing AA. He is willing to consider once weekly smart recovery groups, and return to [facility] 3 days a week at [facility]. He is able to identify some of his triggers for drinking, including anxiety, boredom, and "my ." He says that his and he identified that they are having communication problems, which she attributes to his drinking, but he says that he drinks because of their communication problems. He describes his drinking as "just crawl in a bottle, and then I get in trouble." He says that it is "new territory for me to be this self exploratory." He reports ongoing anxiety, but is working on other ways to manage it without drinking, and states mood is improved and he does not feel he is depressed. Shortly after our interview, discussed with the licensed master social worker who had just gotten off the phone with the patient's , who reported that during the conversation yesterday she told him that he could not return home and needed to find a different place to stay. Met with the patient again, along with the licensed master social worker, to reflect this information. He acted confused, stating that was not his understanding of their discussion, and that he thought he would go home and that they would be able to work things out. He said he had not even considered asking a friend or family member if he could stay with them, and did not want to do that, and would just go to [facility] if he could not go home. Discussed concerns with this, including that one of his main triggers for drinking is being alone and problems with his , and that this was not a safe discharge plan. Encouraged him to consider going to rehab, which he adamantly refused, stating he already went once and "I do not want to pay $130,000," although acknowledged insurance pays for it. The licensed master social worker reflected much of her conversation with his , including how proud she was of him when he went to rehab, and that going again in order to get well would give him the best chance of stability and mending his relationships, as well as getting healthy. Discussed concerns that if he continues to drink that his suicide risk is high, and that his family and the treatment team are both concerned about him. Encouraged him to talk with his family, and made a plan to talk with his counselor at [facility] tomorrow to discuss treatment options as well. After the meeting, he went to various staff members and told them he wanted his bags, as he was leaving the hospital. also confirmed that although guns in the home are locked, she will have them removed from the house. They belong to her and her son who lives in [place] but uses them for hunting. She stated concerns with patient's lying and lack of commitment to sobriety, anxiety about his ongoing alcohol abuse, and concerns about his safety when he is not in the hospital. Physical Exam Psychiatric Orientation: alert and cooperative (Partially, but not reliable and misrepresents information) Apperance: appropriately dressed, appropriately groomed and appeared stated age Eye Contact: + fair eye contact Motor Behavior: steady gait and station and no abnormal motor movements Speech: normal rate/rhythm/volume of speech Affect: + mood not congruent with affect Initially presented euthymic, but appeared depressed when discussing the conversation with his "Some anxiety, not depressed." Thought Process: goal directed thought process Thought Content: + cognitive distortions Suicidal Thoughts: denies suicidal thoughts Homicidal Thoughts: denies homicidal thoughts Hallucinations: no auditory hallucinations Cognition: recent memory grossly intact, attention grossly intact and language grossly intact Insight: + impaired insight Judgement: + impaired judgement Vital Signs (Past 24 Hours) Last Vital Signs Temp 36.9 C 03/19/20 21:39 Pulse 60 03/19/20 08:00 Resp 16 03/19/20 08:00 BP 145/88 H 03/19/20 08:00 Pulse Ox 96 03/17/20 18:00 Results & Data ([facility]) Current Inpatient Medications Current Inpatient Medications: Current Inpatient Medications Acetaminophen (Tylenol) 650 mg PO Q4H PRN PRN Reason: Headache or Minor Fever Stop: 04/14/20 21:52 Last Admin: 03/16/20 17:09 Dose: 650 mg Documented by: Al Hydrox/Mg Hydrox/Simethicone (Maalox) 30 ml PO Q4H PRN PRN Reason: GI Upset Stop: 04/14/20 21:52 Bismuth Subsalicylate (Kaopectate) 15 ml PO PRN PRN PRN Reason: Loose Stool Stop: 04/14/20 21:52 Buspirone HCl (Buspar) 5 mg PO BID [facility] Stop: 04/15/20 08:59 Last Admin: 03/19/20 21:34 Dose: 5 mg Documented by: Citalopram Hydrobromide (Celexa) 40 mg PO DAILY [facility] Stop: 04/15/20 08:59 Last Admin: 03/19/20 07:46 Dose: 40 mg Documented by: Clonidine HCl (Catapres) 0.1 mg PO DAILY [facility] Stop: 04/15/20 08:59 Last Admin: 03/19/20 07:45 Dose: 0.1 mg Documented by: Doxepin HCl (Sinequan) 100 mg PO HS [facility] Stop: 04/14/20 22:09 Last Admin: 03/19/20 21:33 Dose: 100 mg Documented by: Epinephrine HCl (Epipen) 0.3 mg IM UD PRN PRN Reason: Allergic Reaction Stop: 04/14/20 22:03 Fenofibrate (Tricor) 145 mg PO HS [facility] Stop: 04/14/20 22:09 Last Admin: 03/19/20 21:33 Dose: 145 mg Documented by: Hydroxyzine HCl (Vistaril) 50 mg PO HSZ PRN PRN Reason: Insomnia Stop: 04/14/20 21:52 Last Admin: 03/20/20 02:32 Dose: 50 mg Documented by: Hydroxyzine HCl (Vistaril) 25 mg PO Q4H PRN PRN Reason: Anxiety Stop: 04/14/20 21:52 Last Admin: 03/19/20 15:39 Dose: 25 mg Documented by: Levetiracetam (Keppra) 500 mg PO BID [facility] Stop: 04/14/20 22:14 Last Admin: 03/19/20 21:32 Dose: 500 mg Documented by: Magnesium Hydroxide (Milk Of Magnesia) 30 ml PO DAILY PRN PRN Reason: Constipation Stop: 04/14/20 21:52 Pantoprazole Sodium (Protonix) 40 mg PO QAM [facility] Stop: 04/15/20 08:59 Last Admin: 03/19/20 07:46 Dose: 40 mg Documented by: Propranolol HCl (Inderal) 40 mg PO BID [facility] Stop: 04/14/20 22:14 Last Admin: 03/19/20 21:33 Dose: 40 mg Documented by: Quetiapine Fumarate (Seroquel) 100 mg PO HS [facility] Stop: 04/14/20 22:09 Last Admin: 03/19/20 21:34 Dose: 100 mg Documented by: Ropinirole HCl (Requip) 2 mg PO DAILY@1999 [facility] Stop: 04/14/20 22:59 Last Admin: 03/19/20 19:56 Dose: 2 mg Documented by: Rosuvastatin Calcium (Crestor) 10 mg PO QAM [facility] Stop: 04/15/20 08:59 Last Admin: 03/19/20 07:46 Dose: 10 mg Documented by: Sodium Chloride ([place] Nasal) 1 - 2 sprays NA PRN PRN PRN Reason: Nasal Dryness/Congestion Stop: 04/14/20 21:52 Mental Health & Subst Abuse Tx Psychiatrist Name of Psychiatrist: Gauri Fajardo Psychiatrist's Date of Appointment with Psychiatrist: 03/29/20 Time of Appointment with Psychiatrist: 2:00 p.m. Psychiatric Appointment Comment: In person unless told otherwise Therapist Name of Therapist: Marielle Lipscomb Therapist's Date of Therapist Appointment: 03/23/20 Time of Therapist Appointment: 11:00 a.m. Therapy Appointment Comment: [address] [facility], [address] [place] [address] Charge Out Clerk Name of Charge Out Clerk: Denies/None Post Discharge Appointments Primary Care Physician Name Of Family Doctor: [facility] - Dr. Riojas Primary Care Provider Appointment Comment: [address] [place] [address] Contact Information Discharge Discharge Address: [address] [place], [place] [id number] (1) Depression Depression Type: unspecified Qualified Code(s): F32.9 - Major depressive disorder, single episode, unspecified
[2020-03-20] MEDS: cloNIDine HCL 0.1 MG TAB PO SCH (07:54)
[2020-03-20] MEDS: PROPRANOLOL HCL 20 MG TAB PO SCH ×2 (07:55→21:17)
[2020-03-20] MEDS: ROSUVASTATIN CALCIUM 10 MG TAB PO SCH (07:55)
[2020-03-20] MEDS: CITALOPRAM 40 MG TAB PO SCH (07:55)
[2020-03-20] MEDS: PANTOprazole 40 MG TAB PO SCH (07:55)
[2020-03-20] MEDS: levETIRAcetam 500 MG TAB PO SCH ×2 (07:55→21:17)
[2020-03-20] MEDS: ROPINIROLE HCL 1 MG TABLET PO SCH (20:22)
[2020-03-20] MEDS: FENOFIBRATE NANOCRYSTALLIZED 145 MG TABLET PO SCH (21:16)
[2020-03-20] MEDS: DOXEPIN HCL 50 MG CAPSULE PO SCH (21:17)
[2020-03-20] MEDS: QUETIAPINE FUMARATE 100 MG TABLET PO SCH (21:18)
[2020-03-21 07:09] VITALS: BP 93/60; TEMP 98.1
[2020-03-21] MEDS: levETIRAcetam 500 MG TAB PO SCH (08:05)
[2020-03-21] MEDS: CITALOPRAM 40 MG TAB PO SCH (08:05)
[2020-03-21] MEDS: cloNIDine HCL 0.1 MG TAB PO SCH (08:05)
[2020-03-21] MEDS: PROPRANOLOL HCL 20 MG TAB PO SCH (08:05)
[2020-03-21] MEDS: PANTOprazole 40 MG TAB PO SCH (08:05)
[2020-03-21] MEDS: ROSUVASTATIN CALCIUM 10 MG TAB PO SCH (08:05)
[2020-03-21 08:21] LABS: Chol HDL Ratio 9; Cholesterol 172 mg/dl (0-200); HDL Cholesterol 19 mg/dl; Triglycerides 627 mg/dl (0-150)
[2020-03-21 10:13] VITALS: PULSE 73
--- NOTE | 2020-03-21 10:50 | Discharge Summary ---
Date of Service March 21, 2020 History of Present Illness Patient is known to us from 2 hospitalizations in 03/2019 and 04/2019, also for depression and alcohol dependence with suicidal ideation and an attempt to buy a gun. In March, he was discharged on citalopram, with follow-up at [facility] for therapy, and Dr. Hooks of neurology. He returned to the ER in 04/2019 with police due to anxiety, alcohol intoxication with a BAL of 274, and nonadherence with citalopram. He had not followed through with AA or substance abuse treatment, and resumed drinking. He minimized his drinking and use defense mechanisms of denial, intellectualization, and rationalization. He would not accept recommendations for substance abuse treatment, stating he could achieve sobriety on his own. He was continued on citalopram which was increased to 40 mg daily, and started on lamotrigine for mood regulation, as he reported mood swings and lability. He was later discovered that he had been prescribed quetiapine as an outpatient, which was restarted and increased to 75 mg at bedtime, and lamotrigine was discontinued to avoid polypharmacy. He had a family meeting with his and adult children, and they confronted him about his drinking and behaviors while intoxicated, and encouraged him to go to rehab. He ultimately agreed to referral to [facility] and was referred to [facility]. In the interim, he presented to the ER in 07/2019 with chest pain, reported he had been sober for 1 week, and was discharged to outpatient cardiology follow-up. He is continued outpatient treatment for history of prostate cancer, and seizure disorder; he saw Dr. Hooks in 11/09/2019 and was continued on Keppra for seizures and ropinirole for RLS. He presented to the ER yesterday, 03/15/2020, with depression, alcohol abuse, and suicidal ideation. He said he went to rehab at [facility] in July, and had been sober for 4 months until he relapsed, and was drinking heavily for 1 week prior to presentation after he discovered that his has her own checking account, and thought this meant that she had "another life," and suspected she had been unfaithful. After that he went to his camp, and was drinking daily for the past 6 days, and was not taking his psychotropic medications. He reported drinking 1/5 of vodka daily for the past several days, and went to a gun store on Saturday with intent to buy a gun and kill himself, but they would not sell him the gun. He talked to his therapist at [facility], as did 2 of his friends who are at camp with him, who referred him to the hospital. His alcohol level was 207, and admission labs were otherwise notable for sodium 3.2, normal TSH. He signed in voluntarily for reinier atment, and received 40 mEq of potassium in the ER. He signed releases for his PCP, neurologist, [facility], and , and was started on AWSS protocol, and continued on his home medications including buspirone, citalopram, clonidine, doxepin, Keppra, propanolol, quetiapine, and ropinirole. On my assessment, he was seen with MARGRET Aguilar. He states he attended rehab as above, was sober until 11/2019, and since that time his alcohol use has gradually increased. He worsened significantly 1 week ago after he discovered his had checks with her name alone on them, as he was upset that she "had a whole separate life, my paycheck has been paying for pretty much everything." He struggles to explain this further, or what her having her own checks meant to him or further relationship. He said that he tried to talk to her about it, and she said that she was keeping her money separate "because of my drinking." He says that they had a fight, and he left and went to his camp and was drinking h eavily for the past week. Friends came and stayed with him at times, and brought him to the hospital yesterday after he talked with his counselor at [facility] and she recommended inpatient treatment. He minimizes the incident with a gun, stating that he went to a gun store over the weekend to try to buy a gun, but says he does not think he would have shot himself. He says "I didn't think I would get it because I was 302'd, but I never got my notification, which was really bugging me. It was just a challenge, a quest." He says at the store, they told him he failed the background check, but did not tell him why. 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 He denies drinking and driving, then says "well I can't I never do it." He admits to noncompliance with his psychotropic medications over the past week, but says they "work well when I take them." He states his primary concern is "anxiety, nerves, if I do not get something in me, full-blown panic attack." He says his goals of treatment are to "get my meds straight, strategies to avoid over drinking." He says he knows he should not drink at all, as he does better when "I just avoid it, because once I get started, I can't stop." Physical Exam Psychiatric Orientation: alert, oriented x 3 and cooperative (superficially) Apperance: appropriately dressed, appropriately groomed and appeared stated age Eye Contact: good eye contact Motor Behavior: steady gait and station and no abnormal motor movements Speech: normal rate/rhythm/volume of speech Affect: + depressed affect and + anxious affect Mood: + depressed mood ("The depression is still there, I don't know. I just don't know.") Thought Process: goal directed thought process and clear/coherent thought process Thought Content: + cognitive distortions (most consistent with history of addiction, externalizing blame ) and + hopelessness (but denying SI) Suicidal Thoughts: denies suicidal thoughts, denies suicidal plan and denies suicidal intent Homicidal Thoughts: denies homicidal thoughts Hallucinations: no auditory hallucinations and no visual hallucinations Cognition: recent memory grossly intact, attention grossly intact and language grossly intact Estimated Intelligence: consistent with education level Insight: + limited insight (but now willing to agree to discharge recommendations) Judgement: + limited judgement (at least willing to agree with discharge recommendations) Vital Signs (Past 24 Hours) Last Vital Signs Temp 36.7 C 03/21/20 10:09 Pulse 73 03/21/20 10:09 Resp 16 03/21/20 10:09 BP 93/60 L 03/21/20 10:09 Pulse Ox 96 03/21/20 10:09 Principal Diagnosis - Major depressive disorder, recurrent - Alcohol dependence - Seizure disorder Psychiatric Data 59-year-old male with a history of severe alcohol dependence and recurrent depression who presented with worsening mood and suicidal ideation in the context of heavy daily alcohol use and an argument with his , who has now informed him she would like to separate. He left on a 1 week heavy drinking binge, and endorsed suicidality to his therapist and friends after he went to a store and tried to buy a gun to kill himself the weekend prior to admission, but did not pass the background check due to a previous 302 psychiatric admission. He presented for voluntary admission on 03/15/2020 after talking with his outpatient counselor at [facility]. Pt did submit a 72-hour notice the day after admission, when he realized the treatment team was not supporting rapid discharge. He did later rescind his notice in favor of ongoing inpatient treatment. He reported his psychotropic medications are helpful, but he had not been compliant with them when drinking. No medication adjustments were made - emphasis was placed on group attendance and consistency with medications. He de monstrated limited insight into his addiction and minimizes his recent behavior and the impact to his marriage, and appears to have a significant amount of denial, and possibly narcissistic traits. Although many of these concerns are ongoing, he is at least agreeable with recommendation for inpatient D&A rehab at this time and is able to comment on the influence of his alcohol dependence leading to his current situation. Referral was made to [facility], as he had participated in their programming in 07/2019. Pt has been accepted to their program. He has consistently denied SI since admission, but due to several serious risk factors and previous unwillingness for appropriate treatment to target his drinking, extended inpatient psychiatric treatment was suggested. Pt is again denying SI on day of discharge and is willing for transfer to rehab. Pt does have established outpatient providers he can return to on discharge from rehab. Pt should also follow-up with his PCP after discharge from their facility as well. Based on review of patient's case and their current presentation, risk of harm to self or others is no longer perceived to be acute. Ongoing treatment in D&A rehab seems the most appropriate and least restrictive setting. Pt seems appropriate for discharge with recommendation for consistent follow-up with outpatient psychiatric prescriber and therapist. Pt verbalized understanding of discharge plan reviewed and is agreeable with plan to be discharged to [facility] D&A rehab today. Blood work was obtained in accordance with ongoing use of an atypical antipsych otic. Pt does have a family history of diabetes, and it does appear that he will require continued discussion with his PCP about this diagnosis, as his HgbA1c is 8.4%. Fasting lipid panel was also obtained with patient's triglycerides being severely elevated at 1154 (03/17) - no reports of symptoms consistent with pancreatitis or other medical complications. Repeat labs were ordered, and triglycerides were reduced to 627 (03/20). Total cholesterol was elevated at 212 on 03/17, but also lowered to 172 with repeat labs on 03/20. As patient is being discharged today, acute medication adjustments were not pursued; however, it would be suggested that consideration be put into whether quetiapine is the most appropriate medication to target sleep given concerns related to increased metabolic symptoms. Recommend PCP follow-up in addition to follow-up with established outpatient psychiatric providers. Day of Discharge Assessment Patient's case was reviewed and discussed during treatment team. Staff report the patient is agreeable with referral for inpatient D&A rehab. He did have several meetings over the weekend in which it was confirmed that his is not permitting him to return home without addressing the ongoing concerns related to his alcohol use. She has requested a separation at this time. Pt has remained compliant with his home psychotropic medications. This provider did receive update that the patient was accepted at [facility], with likely availability to accept the patient today. Pt was seen today to assess readiness for discharge. Pt states "I don't know, I'm going to try to make the most of it." Pt states that he is still willing for rehab, evening mentioning specific staff he feels were helpful during his treatment there in 07/2019. Pt makes several statements during our interview about feeling as though "I've had the floor pulled out from under me" and "I'm just swinging in the breeze, but trying to get my feet on the ground." In contrast to these statements, patient is also able to verbalize his awareness that his decisions and behavior have played a large role in his current circumstances, saying "I guess this all didn't happen all of a sudden...it's been coming for some time." Pt continues to deny SI, still stating he only had fleeting SI prior to his admission and is still preoccupied that staff know that he did not try to purchase the gun in order to kill himself. Pt is at least verbalizing recognition as to why staff would be concerned about his decisions, and why treatment was ultimately recommended. Pt states that while he still feels "misunderstood" and "frustrated about that", he is able to appreciate staff's concern for his safety. Repeat fasting blood work results were reviewed with the patient, as well as recommendation that he follow-up with his PCP after he is discharged from rehab to continue monitoring. We also discussed that it is recommended that ongoing use of quetiapine be evaluated, as this medication can contribute to further metabolic symptoms. Pt reports readiness for discharge, and is requesting information of discharge timeline as soon as it becomes available. He denies other needs or concerns today. Transition of Care Transition Of Care Record: was reviewed with the patient Advance Directives Advance Directives Information Provided: Yes Advance Directives: No Mental Health Advance Directive: No Advance Directives on File: No Living Will: No Power of Deli/Bakery Associate: No Advance Directives Reason:: Declines as Mental Health Visit. Risk Factors Assessment Presenting risk factors reviewed on discharge. Precipitating stressors mitigated by: admission for inpatient psychiatric observation and treatment, attendance of therapeutic treatment groups, development of healthy and effective coping strategies, involvement of outpatient supports, completion of a safety plan, confirmation of guns and weapons being secured, discussion regarding substance abuse and effects on mental health diagnoses, treatment of medical con ditions and education on diagnoses. Pt has demonstrated improvement in condition with regard to consistent denial of SI, compliance with medications, willingness to involve in family meetings, and patient being agreeable to pursue inpatient rehab as recommended on discharge. At this time, patient is requesting discharge and is no longer considered to be at acute risk of harm to himself or others. Pt will be discharged with recommendation for ongoing outpatient psychiatric treatment after completing the rehab program. Male: Yes : Yes Health Problems: Yes Mental Health Diagnoses: Yes Substance Use Disorders: Yes Previous Attempt: No Family History of Suicide: No Previous Psychiatric Hospitalization: Yes Hopelessness: Yes Smoker: Yes Protective Factors Assessment : Yes Responsible for Young Children: No Employed: No Stable Relationships: Yes Supportive Family: Yes Good Rapport with Provider: Yes Tobacco Cessation at Discharge Tobacco Cessation Medication Prescribed at Discharge: Not Applicable/Non-Smoker Total Time Total Time Spent: Greater Than 30 Minutes Total Time Includes: Examination of the patient, Discharge Planning, Medication Reconciliation and Communication with other providers Discharge Data Lab Results 03/15/20 03/15/20 03/15/20 15:25 15:25 15:31 WBC 3.87 L RBC 4.38 L Hgb 14.1 Hct 38.9 L MCV 88.8 MCH 32.2 MCHC 36.2 H RDW Std Deviation 43.9 RDW Coeff of Antonio 13.4 Plt Count 92 L MPV 9.8 Immature Gran % (Auto) 0.3 Neut % (Auto) 45.2 Lymph % (Auto) 38.5 [place] % (Auto) 11.9 Eos % (Auto) 3.6 Baso % (Auto) 0.5 Immature Gran # (Auto) 0.01 Neut # (Auto) 1.75 Lymph # (Auto) 1.49 [place] # (Auto) 0.46 Eos # (Auto) 0.14 Baso # (Auto) 0.02 Pappenheimer Bodies 1+ Sodium Potassium Chloride Carbon Dioxide Anion Gap BUN Creatinine Est Cr Clr Drug Dosing Est GFR ( Amer) Est GFR (Non-Af Amer) BUN/Creatinine Ratio Glucose Estimat Average Glucose Hemoglobin A1c Calcium Total Bilirubin AST ALT Alkaline Phosphatase Total Protein Albumin Globulin Albumin/Globulin Ratio Triglycerides Cholesterol LDL Cholesterol, Calc VLDL Cholesterol, Calc HDL Cholesterol Cholesterol/HDL Ratio Folate TSH Specimen Hemolysis Urine Color Dark Yellow Urine Appearance Clear Urine pH 6.0 Ur Specific [place] 1.019 Urine Protein Negative Urine Glucose (UA) Negative Urine Ketones Trace H Urine Blood Negative Urine Nitrite Negative Urine Bilirubin Negative Urine Urobilinogen Positive H Ur Leukocyte Esterase Negative Salicylates Urine Opiates Screen Neg Ur Methadone, Qual Neg Acetaminophen Urine Barbiturates Neg Ur Phencyclidine (PCP) Neg U Amphetamin/Meth Scrn Neg MDMA (Ecstasy) Screen Neg U Benzodiazepines Scrn Neg Ur Cocaine Metabolite Neg U Marijuana (THC) Screen Neg Ethyl Alcohol mg/dL 03/15/20 03/15/20 03/15/20 15:31 15:31 15:31 WBC RBC Hgb Hct MCV MCH MCHC RDW Std Deviation RDW Coeff of Antonio Plt Count MPV Immature Gran % (Auto) Neut % (Auto) Lymph % (Auto) [place] % (Auto) Eos % (Auto) Baso % (Auto) Immature Gran # (Auto) Neut # (Auto) Lymph # (Auto) [place] # (Auto) Eos # (Auto) Baso # (Auto) Pappenheimer Bodies Sodium 140 Potassium 3.2 L Chloride 105 Carbon Dioxide 27 Anion Gap 8.0 BUN 7 Creatinine 0.93 Est Cr Clr Drug Dosing 97.0 Est GFR ( Amer) 102.3 Est GFR (Non-Af Amer) 88.3 BUN/Creatinine Ratio 7.9 L Glucose 112 H Estimat Average Glucose Hemoglobin A1c Calcium 8.1 L Total Bilirubin 0.7 AST 130 H ALT 73 Alkaline Phosphatase 116 Total Protein 8.1 Albumin 3.4 Globulin 4.7 H Albumin/Globulin Ratio 0.7 L Triglycerides Cholesterol LDL Cholesterol, Calc VLDL Cholesterol, Calc HDL Cholesterol Cholesterol/HDL Ratio Folate TSH 1.780 Specimen Hemolysis Urine Color Urine Appearance Urine pH Ur Specific [place] Urine Protein Urine Glucose (UA) Urine Ketones Urine Blood Urine Nitrite Urine Bilirubin Urine Urobilinogen Ur Leukocyte Esterase Salicylates 4.4 Urine Opiates Screen Ur Methadone, Qual Acetaminophen < 2 L Urine Barbiturates Ur Phencyclidine (PCP) U Amphetamin/Meth Scrn MDMA (Ecstasy) Screen U Benzodiazepines Scrn Ur Cocaine Metabolite U Marijuana (THC) Screen Ethyl Alcohol mg/dL 207.0 H 03/15/20 03/17/20 03/17/20 22:21 07:35 07:35 WBC RBC Hgb Hct MCV MCH MCHC RDW Std Deviation RDW Coeff of Antonio Plt Count MPV Immature Gran % (Auto) Neut % (Auto) Lymph % (Auto) [place] % (Auto) Eos % (Auto) Baso % (Auto) Immature Gran # (Auto) Neut # (Auto) Lymph # (Auto) [place] # (Auto) Eos # (Auto) Baso # (Auto) Pappenheimer Bodies Sodium Potassium Chloride Carbon Dioxide Anion Gap BUN Creatinine Est Cr Clr Drug Dosing Est GFR ( Amer) Est GFR (Non-Af Amer) BUN/Creatinine Ratio Glucose Estimat Average Glucose 194 Hemoglobin A1c 8.4 H Calcium Total Bilirubin AST ALT Alkaline Phosphatase Total Protein Albumin Globulin Albumin/Globulin Ratio Triglycerides 1154 H Cholesterol 212 H LDL Cholesterol, Calc VLDL Cholesterol, Calc HDL Cholesterol 18 Cholesterol/HDL Ratio 12 Folate 10.49 TSH Specimen Hemolysis Urine Color Urine Appearance Urine pH Ur Specific [place] Urine Protein Urine Glucose (UA) Urine Ketones Urine Blood Urine Nitrite Urine Bilirubin Urine Urobilinogen Ur Leukocyte Esterase Salicylates Urine Opiates Screen Ur Methadone, Qual Acetaminophen Urine Barbiturates Ur Phencyclidine (PCP) U Amphetamin/Meth Scrn MDMA (Ecstasy) Screen U Benzodiazepines Scrn Ur Cocaine Metabolite U Marijuana (THC) Screen Ethyl Alcohol mg/dL 03/21/20 07:24 WBC RBC Hgb Hct MCV MCH MCHC RDW Std Deviation RDW Coeff of Antonio Plt Count MPV Immature Gran % (Auto) Neut % (Auto) Lymph % (Auto) [place] % (Auto) Eos % (Auto) Baso % (Auto) Immature Gran # (Auto) Neut # (Auto) Lymph # (Auto) [place] # (Auto) Eos # (Auto) Baso # (Auto) Pappenheimer Bodies Sodium Potassium Chloride Carbon Dioxide Anion Gap BUN Creatinine Est Cr Clr Drug Dosing Est GFR ( Amer) Est GFR (Non-Af Amer) BUN/Creatinine Ratio Glucose Estimat Average Glucose Hemoglobin A1c Calcium Total Bilirubin AST ALT Alkaline Phosphatase Total Protein Albumin Globulin Albumin/Globulin Ratio Triglycerides 627 H Cholesterol 172 LDL Cholesterol, Calc VLDL Cholesterol, Calc HDL Cholesterol 19 Cholesterol/HDL Ratio 9 Folate TSH Specimen Hemolysis Urine Color Urine Appearance Urine pH Ur Specific [place] Urine Protein Urine Glucose (UA) Urine Ketones Urine Blood Urine Nitrite Urine Bilirubin Urine Urobilinogen Ur Leukocyte Esterase Salicylates Urine Opiates Screen Ur Methadone, Qual Acetaminophen Urine Barbiturates Ur Phencyclidine (PCP) U Amphetamin/Meth Scrn MDMA (Ecstasy) Screen U Benzodiazepines Scrn Ur Cocaine Metabolite U Marijuana (THC) Screen Ethyl Alcohol mg/dL Hospital Course (1) Suicidal ideation: Voluntary inpatient treatment. 15-minute checks for safety. 03/17 - Pt denies current active or passive suicidal ideation or homicidal ideation today. - Continue 15- minute checks for safety. 03/18 -Patient reports that he is not experiencing suicidal thoughts today. However, the issue in this case is not that he endorses suicidal ideations and engages in active suicidal behaviors when sober but, instead, the issue is that he has repeatedly placed himself in high risk situations while he is drinking, within the context of an underlying major depressive disorder. 03/21 - Pt continues to deny SI (2) Depression: 03/16 -Resume home doses of psychotropics; citalopram 40 mg daily, buspirone 5 mg twice daily, doxepin 100 mg at bedtime, clonidine 0.1 mg daily, and quetiapine 100 mg at bedtime. Patient had been noncompliant for the past week. Get outpatient records and coordinate with his outpatient treatment team. -FLP and FG for monitoring on an atypical antipsychotic: Last FLP reviewed from 03/2019; triglycerides 305, otherwise within normal limits. Hemoglobin A1c 5.8%. We will reorder both for tomorrow as he is due for his yearly labs. -Participate in unit groups and therapy, work on healthy coping skills and discharge safety plan. Family meeting with . 03/17 - Continue home psychotropic medications as scheduled and pt is compliant with medications. - Family meeting with his scheduled tomorrow per pt's 's request. - Continue attempts to set up aftercare appointments with psychiatrist, therapist and also treatment of alcohol dependence. - FLP obtained; triglycerides 1154 and cholesterol 212, otherwise WNL. Hemoglobin A1c result hasn't reported and if it was not obtained this time, it will be reordered. Lab results haven't reviewed with the patient yet. -The patient agreed to retract his 72-hour request for release, and is now remaining as a voluntary patient, at least through the weekend. 03/18 - During his family meeting of 03/18/2020 his indicated that she wants to separate from him. The patient tells me that at one time the idea of from his would have been a source of great distress however, he is now saying that although he "is not exactly happy about it," he also finds that it is not particularly bothering him. An important consideration in this case is the fact that the patient has major depression independent of his abuse of mood altering chemical substances, namely alcohol, and the use of alcohol tends to feel his depression and lead to dangerous behaviors such as attempting to purchase firearms to use in a suicide attempt. He acknowledges that his is a strong sober support, and he acknowledges that if he were to separate from her and get his own apartment he is perhaps more likely to drink. This, of course, could be mitigated by a firm commitment by the patient to attend self- help groups such as AA 7 days a week, get a sponsor, and agreed to take daily medicine such as disulfiram (Antabuse). However, the patient at this point is still somewhat ambivalent about the idea and seems to focus more on the fact that he feels diminished by self-help groups such as AA then on the high risk associated with his severe alcohol dependence. The patient does note that there are certain other mitigating factors that he feels are in his favor. 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 03/19 - today patient is minimizing the family meeting, stating that he felt it went well and that he and his are reconciled. -Continue current medications, and encourage group attendance and participation. 03/20 -patient confronted with his reports that he and his had reconciled and he was returning home, as she reported that she asked him to move out. He appears to be in complete denial, both about his alcoholism and the status of his marriage. He remains at extremely high risk for suicide currently, especially if he continues to abuse alcohol. -Second family meeting to be held with today, patient wrongly encouraged to go to rehab to address his addiction, which he is refusing. Also encouraged him to explore alternative housing options, specifically living with friends or family in order to decrease his risk of relapse (as opposed to going to a hotel alone). 03/21 - Continue current medication regimen - Pt now agreeable with transfer to inpatient D&A rehab - referral made to [facility], which patient had attended in 07/2019 - Consider discontinuation of quetiapine in favor of sleep medication that is less likely to contribute to metabolic symptoms, as patient's HgbA1c was 8.4%. Will continue at this time as discharge today is anticipated (3) Alcohol dependence: 03/16 -continue AW protocol for alcohol withdrawal. Avoid medications that are addictive or abusable due to high risk of abuse/misuse/negative outcomes. -Brief intervention was offered and accepted Intervention was greater than 5 min in length. Brief interventions include: 1. Assess Readiness to Quit, 2. Advise: Help Patient to Reduce or Abstain from Alcohol, 3. Agree: Set Specific, Feasible Goals, 4. Assist: Anticipate barriers, Problem-Solving Solutions. Social work to 5. Arrange: Referrals to appropriate treatment. Summary of intervention: The patient is in contemplation stage with regards to transtheoretical model of change. The patient is advised to decrease alcohol consumption due to depressant effects and risk of interactions with prescription medications. The patient agreed to IOP and will be provided with recovery materials to continue to education self on how to cope with their condition without drinking. Recommendations are for inpatient rehab, as he has failed outpatient care, with a stepdown to IOP and peers support groups once completed. He is not willing to consider this at this time, and feels he can stop drinking on his own. 03/17 - Continue AWSS protocol for alcohol withdrawal. Ativan PO ordered since pt's AWSS score was 6 today when his anxiety got worse after hearing that scheduled family meeting was canceled per pt's 's request. - Continue attempts to set up aftercare treatment to address alcohol dependence. 03/18 -Continue AWSS protocol for alcohol withdrawal. -Today we focused on the issue of the patient's tendency to minimize his need for a full commitment to achieving and sustaining sobriety. I recommended that he avail himself of "7 and 7" which refers to 7 AA meetings a week for at least 7 weeks. The patient's responses to say, essentially, that he feels that AA is "a little demeaning," and that he prefers to go to a different self-help program that he can do "just once a week." -In addition to confronting the patient about his tendency to minimize the degree of his alcohol dependence in the serious complications and adverse outcomes that have ensued, we also talked about relapse triggers. He understands that stress and change, as well as lack of structure are for him triggers for alcohol relapse. However, it seems to have not occurred to him that separation from his may be considered a trigger given his report that lack of structure and "change" are likely to be the result of his ending his marriage. 03/19 -Ongoing evidence of limited insight into his addiction. Unwilling to even consider inpatient rehab. Encouraged him to contact his substance abuse counselor at [facility] on Saturday to discuss treatment recommendations with her. He is unwilling to consider AA, and dismissive of treatment recommendations in general. 03/20 -Again reviewed recommendations for rehab, which he is unwilling to consider. We will coordinate care with Deisi at [facility] tomorrow to update her on the situation and get her input. He did indicate a willingness to return to [facility] there, but I fear this will not be sufficient given the severity of his substance abuse. 03/21 - Pt now agreeable with inpatient D&A rehab - willing for referral to [facility] - Received report that a bed will likely be available today (4) Seizure disorder: 03/16 -continue home dose of Keppra, follow-up as directed with Dr. Hooks. (5) RLS (restless legs syndrome): 03/16 -continue home dose of ropinirole; follow-up with Dr. Hooks. (6) Hyperlipidemia: 03/16 -continue home dose of Crestor. FLP as above. (7) Hypertension: 03/16 -continue home doses of propanolol and clonidine. Mental Health & Subst Abuse Tx Psychiatrist Name of Psychiatrist: Gauri Fajardo Psychiatrist's Date of Appointment with Psychiatrist: 03/29/20 Time of Appointment with Psychiatrist: 2:00 p.m. Psychiatric Appointment Comment: In person unless told otherwise Therapist Name of Therapist: [facility] - Deisi Therapist's Date of Therapist Appointment: 03/23/20 Time of Therapist Appointment: 11:00 a.m. Therapy Appointment Comment: [address] [facility], [address], [place] Drilling Superintendent Name of Drilling Superintendent: Denies/None Post Discharge Appointments Primary Care Physician Name Of Family Doctor: Trevor Garciaands Ang - Dr. Riojas Primary Care Provider Appointment Comment: [facility] [facility] [place] [address] Smoking Cessation Counseling Tobacco Cessation Medication Prescribed at Discharge: Not Applicable/Non-Smoker Contact Information Discharge Discharge Address: [address] [place] [id number] Discharge Plan Discharge Items Patient Disposition: Drug & Alcohol Rehab Reason For Visit: DEPRESSIVE DISORDER Discharge Diagnosis: - Depression - Alcohol dependence Condition on Discharge: Fair Activity: Resume your previous activity Non-emergency contact: Primary Care Provider, Psychiatrist and Therapist Call non-emergency contact if: you have any medication questions and your symptoms worsen Follow-up/Referrals: Matheus Riojas [Primary Care Provider] - Diet: Carb Consistent or DM2 Diet Comment: dietary changes recommended in light of elevated HgbA1c Addtl Attending Provider Instructions: SPECIAL CARE INSTRUCTIONS: 1. Follow through with your scheduled aftercare appointments. If unable to keep an appointment, please call to reschedule. 2. Take your medication only as prescribed. Medication should not be changed or stopped without the approval of your doctor. In the event of worsening symptoms or concerns about side effects, contact your doctor immediately. 3. Utilize new healthy coping skills, anger management skills, and stress management skills learned during your hospitalization. Journal feelings and process them with a support person. Identify stressors or situations that may result in relapse, deterioration or inappropriate behaviors and develop a plan to deal with those issues. 4. If your coping skills are ineffective and you are in crisis, contact your outpatient providers for direction. If unable to reach your providers, please call the CAN HELP LINE AT or go to the closest Emergency Room. 5. Avoid alcohol and un-prescribed drugs. 6. You have been provided with the Mental Health Advance Directives Pamphlet for your review. AFTERCARE APPOINTMENTS: * Please call your insurance company prior to your scheduled appointment to confirm your aftercare providers are covered. Take your insurance information to your appointments. WHO TO CALL AND WHEN: Medical Emergencies: For questions or emergencies related to your hospital stay, please contact the Inpatient Behavioral Health Unit at [phone]. A diesel engine assembler is on-call 13/05 for the Behavioral Health Unit for emergencies At any time you feel your situation is an emergency, you may also call 911 immediately. Your Discharge Instructions noted above were prepared by provider Janice Travis PA-C. Pending Studies at Discharge: No Stand-Alone Forms: My [employer]cert, Suicide Prevention Resources Skilled Items Patient informed of condition?: Yes DNR: No Discharge Level of Care: Other Communicable Disease: No Discharge Prognosis: Stable Lines: None Urinary Catheter: No Medications and DC Order Prescriptions: Continued levetiracetam 500 mg tablet 500 mg PO BID 30 Days Qty: 60 RF: 4 citalopram 40 mg tablet 40 mg PO DAILY RF: 0 propranolol 40 mg tablet 40 mg PO BID RF: 0 quetiapine 100 mg tablet 100 mg PO HS RF: 0 doxepin 50 mg capsule 100 mg PO HS RF: 0 melatonin 5 mg capsule 5 mg PO HS RF: 0 ropinirole 2 mg tablet 2 mg PO .COMPLEX 90 Days Qty: 90 RF: 1 pantoprazole 40 mg Tablet,Delayed Release (Dr/Ec) 40 mg PO QAM RF: 0 epinephrine [EpiPen] 0.3 mg/0.3 mL Auto-Injector 0.3 mg IM DIRECTED PRN (Reason: Allergic Reaction) RF: 0 rosuvastatin [Crestor] 10 mg Tablet 10 mg PO QAM RF: 0 clonidine HCl 0.1 mg tablet 0.1 mg PO DAILY RF: 0 hydroxyzine pamoate 50 mg capsule 50 mg PO DAILY RF: 0 buspirone 5 mg tablet 5 mg PO BID RF: 0 fenofibrate nanocrystallized 145 mg tablet 145 mg PO HS RF: 0 Discharge Orders: Discharge Order (Routine); Ordered 03/21/20 Ordered By: Janice Hart/Other Patient Handouts: Diabetes Healthy Meals, Depression Affects Your Mind and Body, Alcoholism Resources, A1C Admission Data Admit Date/Time: 03/15/20 21:54 Attending Provider: Daysi Douglass Admit Provider: Annelise Orta Primary Care Provider: Matheus Riojas Other Interventions: Discharge Summary Assessment (RN) Last Done: 03/21/20 10:09 PSY Interdisciplinary Discharge Planning Last Done: 03/21/20 10:12 Coding Level of Care Code 72139 D/C day mgmt > 30 min Diagnoses Suicidal ideation R45.851 Depression F32.9 Depression Type: unspecified Alcohol dependence F10.20 Seizure disorder G40.909 RLS (restless legs syndrome) G25.81 Hyperlipidemia E78.5 Hypertension I10
== END 2020-03-21 12:25 | disposition alcohol treatment (31) | DRG 881 ==
LOC: ED 15:01 → 3S 21:54

== ENCOUNTER 2020-03-25 17:12 | Observation (INO) ==
[~2020-03-25 17:12] MED LIST changes: -ALPR-411 PO; -AMLO-110 PO; -CITA20TA9 PO; -CRS/10 PO; -FENO145T26 PO; -HYZ/10015 PO; -LEVE500T13 PO; -OMEP40CA PO; -OPTIRAY 320 IV PRN; -PSYL48.59; +SODIUM CHLORIDE 0.9% 1000ML 1,000 ML IV SCH
[2020-03-25] MEDS ORDERED: OPTIRAY 320 125ml IV PRN (17:21)
--- NOTE | 2020-03-25 17:27 | Emergency Department Note ---
Impression & Plan Stroke-like symptoms ED Provider Note NAME: FRED HOGAN AGE: 59 SEX: M ARRIVES VIA: Ambulance INFORMANT: [Patient] ED PROVIDER(S): Douglas Carmona MD CHIEF COMPLAINT: Stroke like symptoms PLAN: Disposition: Admitted Condition: [Good] MEDICAL DECISION MAKING: Patient presented to emergency part with strokelike symptoms. A stroke alert was initiated. The patient was taken emergently to CT imaging and had CT of the head as well as CT angiography of the head and neck. These revealed some findings of mild vascular disease but no acute occlusion or vessel cutoff. No subdural hematoma or intracranial bleeding. No aneurysms noted. The patient was reassessed and was improving. He had very minimal symptoms. An emergent consult was placed with [facility]. The patient was evaluated by Dr. Vu. By the time he was evaluated there he had resolution of symptoms. This was felt to be most consistent with a TIA given the strokelike symptoms and resolution. The consult recommended initiation of a Plavix and aspirin load. These were given. Also 3 weeks of aspirin and Plavix were recommended with then transition to aspirin alone. Patient feels comfortable with this plan. Consultation was made with Dr. Santos of internal medicine and the patient was admitted for further management. Triage Nursing notes reviewed and agree them. \ [Prior medical records reviewed] patient subdural hematoma event was noted to be in fall 2017 Vital Signs: reviewed and remarkable for [no significant abnormalities] Differential diagnosis: CVA, TIA, infection, dehydration, metabolic abnormality, hypo/hyperglycemia, el ectrolyte disturbance, anemia, hypoxia, cardiac sources, intracerebral event, toxicologic, neurologic, as well as other pathologies. ER treatment provided: Saline hydration Oral Plavix 200 mg Oral aspirin 324 mg Diagnostics interpreted by me: ECG: Rate: 59 Rhythm: Sinus bradycardia [place]:Normal QRS:Normal ST segements:No elevation or depression Other:No PACs or PVCs Cardiac Monitoring: Cardiac monitoring ordered by me: The patient was placed on continuous cardiac monitoring and observed. It revealed a normal sinus rhythm at 62 beats per minute without ectopy or evidence of dysrhythmia. Laboratory studies: [See below] an unremarkable CBC and chemistry panel except for a slight pancytopenia and mild elevation of LFTs. The patient was found to be hyperglycemic. Troponin was negative. Imaging studies: No acute findings on CT and CTA. I refer you to the EMR for details. Consultation(s): Kristina tele-stroke [facility] internal medicine HPI: The patient is a 59 year old male who presents to the Emergency Room with complaints of right numbness and weakness. This started at 1545 and is improving. The patient also notes the following associated symptoms, dizziness. The patient has taken no medications for relieving factors. Current pain is rated as 0/10. Has a hx of subdural hematoma. Pt denies LOC, headache, fevers, chills, diaphoresis, visual changes, neck pain, chest pain, breathing difficulties, nausea, vomiting, abdominal pain, back pain, melena, hematochezia, urinary symptoms, numbness, weakness, lymphadenopathy, rash, or other complaints. ROS: See above HPI for pertinent positives & negatives. A total of [10] systems reviewed and were otherwise negative. PAST MEDICAL HISTORY:[See Below] SDH PAST SURGICAL HISTORY:[See Below] FAMILY HISTORY:[See Below] SOCIAL HISTORY:[See Below] ETOH HOME MEDICATIONS:[See Below] ALLERGIES:[See Below] VITALS:[See Below] PHYSICAL EXAMINATION: GENERAL: Awake, alert, well appearing, no distress HENT: Normocephalic, atraumatic. Oropharynx unremarkable. EYES: PERRL. EOMI. Normal conjunctiva. Sclera non-icteric. NECK: Supple. Normal inspection. Non-tender. No nuchal rigidity. FROM. No bruit. RESPIRATORY: Breath sounds equal. No wheezes. No rhonchi. Normal respiratory effort. CARDIAC: Normal rate. Regular rhythm. No murmurs. No rubs. No JVD. GI: Soft, non distended. No tenderness to palpation. No rebound or guarding. No masses. RECTAL: Deferred. MUSCULOSKELETAL: Unremarkable. No edema. No discoloration. Gross motor strength symmetric. NEURO: Cranial nerves 2-12 grossly intact. Normal sensorium. No sensory or motor deficits noted. Speech normal. No pronator drift. Normal rapid alternating movements. Gait normal. Negative rhomberg. SKIN: No rash or jaundice noted. LYMPH: No adenopathy. ED COURSE: [Critical Care:] [None] Douglas Carmona MD Past Med/Surg History Social History Preferred Language: Ukrainian Communication Ability: Effective Volcanology Teacher Required: No Beliefs That Will Affect Care: None Current Living Situation: Spouse Feels Safe at Home: Yes Safety Concerns: Feels Safe At This Time Smoking Status: Current every day smoker Tobacco Type: cigarettes ; Hx Alcohol Use: Yes Hx Substance Use: No Allergies Allergies Allergy/AdvReac Type Severity Reaction Status Date / Time bee venom protein (honey bee) Allergy Severe ANAPHYLAXIS Verified 03/25/20 19:00 cat dander Allergy Intermediate Itchy/Watery Verified 03/25/20 19:00 Eyes, Itchy throat tamsulosin Allergy Intermediate Hives Verified 03/25/20 19:00 Home Meds Home Medications Medication Instructions Recorded Confirmed rosuvastatin [Crestor] 10 mg PO QAM 09/13/18 03/25/20 epinephrine [EpiPen] 0.3 mg IM DIRECTED PRN 03/21/19 03/25/20 pantoprazole 40 mg PO QAM 03/21/19 03/25/20 clonidine HCl 0.1 mg tablet 0.1 mg PO DAILY tab 09/01/19 03/25/20 hydroxyzine pamoate 50 mg capsule 50 mg PO DAILY PRN cap 09/01/19 03/25/20 buspirone 5 mg tablet 5 mg PO BID tab 11/11/19 03/25/20 citalopram 40 mg tablet 40 mg PO DAILY tab 11/11/19 03/25/20 melatonin 5 mg capsule 5 mg PO HS 11/11/19 03/25/20 propranolol 40 mg tablet 40 mg PO BID 11/11/19 03/25/20 quetiapine 100 mg tablet 100 mg PO HS 11/11/19 03/25/20 fenofibrate nanocrystallized 145 mg PO HS 03/15/20 03/25/20 doxepin 100 mg PO HS 03/25/20 03/25/20 Previous Rx's Medication Instructions Recorded ropinirole 2 mg tablet 2 mg PO .COMPLEX 90 Days #90 tab 11/11/19 levetiracetam 500 mg tablet 500 mg PO BID 30 Days #60 tab 01/25/20 Results & Data (ED) Vital Signs Vital Signs - 24 hr 03/25/20 17:23 03/25/20 17:46 03/25/20 18:01 Temperature 36.7 C Temperature Source Oral Pulse Rate 58 L 56 L 59 L Pulse Rate [Apical] Pulse Rate from SpO2 Sensor 56 L 59 L Pulse Rhythm [Apical] Respiratory Rate 22 16 20 Respiratory Effort / Characteristics Respiratory Depth Blood Pressure 129/75 124/78 141/82 H Blood Pressure [Right Arm] Blood Pressure Mean 93 89 97 Blood Pressure Mean [Right Arm] Blood Pressure Position Sitting Pulse Oximetry 97 96 97 Oxygen Delivery Method Sepsis Recent Fever Within 48 Hours No Sepsis New/Unexplained Change in Mental Status No Sepsis Action Taken by Nursing No Action Required 03/25/20 19:14 03/25/20 19:15 03/25/20 20:00 Temperature Temperature Source Pulse Rate 56 L Pulse Rate [Apical] 57 L Pulse Rate from SpO2 Sensor Pulse Rhythm [Apical] Regular Respiratory Rate 18 17 Respiratory Effort / Characteristics Non-Labored Respiratory Depth Normal Blood Pressure 128/91 Blood Pressure [Right Arm] 143/93 H Blood Pressure Mean 105 Blood Pressure Mean [Right Arm] 109 Blood Pressure Position Pulse Oximetry 99 Oxygen Delivery Method Room Air Room Air Sepsis Recent Fever Within 48 Hours Sepsis New/Unexplained Change in Mental Status Sepsis Action Taken by Nursing 03/25/20 20:01 03/25/20 20:30 03/25/20 21:00 Temperature Temperature Source Pulse Rate 56 L Pulse Rate [Apical] Pulse Rate from SpO2 Sensor 56 L 53 L Pulse Rhythm [Apical] Respiratory Rate 19 16 24 Respiratory Effort / Characteristics Respiratory Depth Blood Pressure Blood Pressure [Right Arm] Blood Pressure Mean Blood Pressure Mean [Right Arm] Blood Pressure Position Pulse Oximetry 97 94 Oxygen Delivery Method Room Air Sepsis Recent Fever Within 48 Hours Sepsis New/Unexplained Change in Mental Status Sepsis Action Taken by Nursing 03/25/20 21:06 Temperature Temperature Source Pulse Rate 54 L Pulse Rate [Apical] Pulse Rate from SpO2 Sensor Pulse Rhythm [Apical] Respiratory Rate 18 Respiratory Effort / Characteristics Respiratory Depth Blood Pressure 138/85 Blood Pressure [Right Arm] Blood Pressure Mean 99 Blood Pressure Mean [Right Arm] Blood Pressure Position Pulse Oximetry Oxygen Delivery Method Sepsis Recent Fever Within 48 Hours Sepsis New/Unexplained Change in Mental Status Sepsis Action Taken by Nursing Laboratory Data Result diagrams: 03/25/20 17:30 03/25/20 17:30 Lab Results 03/25/20 03/25/20 03/25/20 Range/Units 17:30 17:30 17:30 WBC 3.56 L (4.8-10.8) K/uL RBC 3.69 L (4.7-6.1) M/uL Hgb 11.7 L (14.0-18.0) g/dL Hct 33.9 L (42-52) % MCV 91.9 (80-100) fL MCH 31.7 (25-34) pg MCHC 34.5 (32-36) g/dL RDW Std Deviation 44.6 (36.4-46.3) fL RDW Coeff of Antonio 13.5 (11.5-14.5) % Plt Count 127 L (130-400) K/uL MPV 10.8 H (7.4-10.4) fL Immature Gran % (Auto) 0.3 % Neut % (Auto) 47.8 % Lymph % (Auto) 36.2 % [place] % (Auto) 12.4 % Eos % (Auto) 2.5 % Baso % (Auto) 0.8 % Immature Gran # (Auto) 0.01 (0.00-0.02) K/uL Neut # (Auto) 1.70 (1.4-6.5) K/uL Lymph # (Auto) 1.29 (1.2-3.4) K/uL [place] # (Auto) 0.44 (0.11-0.59) K/uL Eos # (Auto) 0.09 (0-0.5) K/uL Baso # (Auto) 0.03 (0-0.2) K/uL Giant Platelets 1+ PT 11.9 (9.0-12.0) Seconds INR 1.1 (0.9-1.1) APTT 27.6 (21.0-31.0) Seconds PTT Ratio 1.0 Sodium (136-145) mmol/L Potassium (3.5-5.1) mmol/L Chloride (98-107) mmol/L Carbon Dioxide (21-32) mmol/L Anion Gap (3-11) BUN (7-18) mg/dl Creatinine (0.6-1.4) mg/dl Est Cr Clr Drug Dosing ml/min Est GFR ( Amer) Est GFR (Non-Af Amer) BUN/Creatinine Ratio (10-20) Glucose (70-99) mg/dl POC Glucose (70-99) mg/dl Calcium (8.5-10.1) mg/dl Magnesium (1.8-2.4) mg/dl Total Bilirubin (0.2-1) mg/dl AST (15-37) U/L ALT (12-78) U/L Alkaline Phosphatase (45-117) U/L Troponin I (0-0.045) ng/ml Total Protein (6.4-8.2) gm/dl Albumin (3.4-5.0) gm/dl Globulin (2.5-4.0) gm/dl Albumin/Globulin Ratio (0.9-2) Specimen Hemolysis Blood Type Cancelled Antibody Screen Cancelled 03/25/20 03/25/20 03/25/20 Range/Units 17:30 17:34 18:12 WBC (4.8-10.8) K/uL RBC (4.7-6.1) M/uL Hgb (14.0-18.0) g/dL Hct (42-52) % MCV (80-100) fL MCH (25-34) pg MCHC (32-36) g/dL RDW Std Deviation (36.4-46.3) fL RDW Coeff of Antonio (11.5-14.5) % Plt Count (130-400) K/uL MPV (7.4-10.4) fL Immature Gran % (Auto) % Neut % (Auto) % Lymph % (Auto) % [place] % (Auto) % Eos % (Auto) % Baso % (Auto) % Immature Gran # (Auto) (0.00-0.02) K/uL Neut # (Auto) (1.4-6.5) K/uL Lymph # (Auto) (1.2-3.4) K/uL [place] # (Auto) (0.11-0.59) K/uL Eos # (Auto) (0-0.5) K/uL Baso # (Auto) (0-0.2) K/uL Giant Platelets PT (9.0-12.0) Seconds INR (0.9-1.1) APTT (21.0-31.0) Seconds PTT Ratio Sodium 136 (136-145) mmol/L Potassium 3.6 (3.5-5.1) mmol/L Chloride 108 H (98-107) mmol/L Carbon Dioxide 24 (21-32) mmol/L Anion Gap 4.0 (3-11) BUN 8 (7-18) mg/dl Creatinine 0.79 (0.6-1.4) mg/dl Est Cr Clr Drug Dosing 118.1 ml/min Est GFR ( Amer) 112.3 Est GFR (Non-Af Amer) 96.9 BUN/Creatinine Ratio 10.1 (10-20) Glucose 246 H (70-99) mg/dl POC Glucose 315 H* (70-99) mg/dl Calcium 7.4 L (8.5-10.1) mg/dl Magnesium 2.0 (1.8-2.4) mg/dl Total Bilirubin 0.3 (0.2-1) mg/dl AST 57 H (15-37) U/L ALT 79 H (12-78) U/L Alkaline Phosphatase 86 (45-117) U/L Troponin I < 0.015 (0-0.045) ng/ml Total Protein 5.9 L (6.4-8.2) gm/dl Albumin 2.5 L (3.4-5.0) gm/dl Globulin 3.4 (2.5-4.0) gm/dl Albumin/Globulin Ratio 0.7 L (0.9-2) Specimen Hemolysis Blood Type O Positive Antibody Screen NEGATIVE Administered Medications Buspirone HCl (Buspar) 5 mg PO BID [facility] Stop: 04/24/20 21:59 Last Admin: 03/25/20 22:31 Dose: 5 mg Documented by: [id number] Doxepin HCl (Sinequan) 100 mg PO [facility] Stop: 04/24/20 22:14 Last Admin: 03/25/20 22:32 Dose: 100 mg Documented by: [id number] Fenofibrate (Tricor) 145 mg PO [facility] Stop: 04/24/20 21:59 Last Admin: 03/25/20 22:33 Dose: 145 mg Documented by: [id number] Insulin Aspart (Novolog Flexpen) 0 units SC ACHS [facility] Stop: 04/24/20 21:59 Last Admin: 03/25/20 22:30 Dose: 4 units Documented by: [id number] Cosigned by: [id number] Insulin Glargine (Lantus Solostar Pen) 7 units SC BID [facility] Stop: 04/24/20 21:56 Last Admin: 03/25/20 22:29 Dose: 7 units Documented by: [id number] Cosigned by: [id number] Ioversol (Optiray 320 125ml) 116 ml IV ONCE PRN PRN Reason: Interaction Checking Stop: 03/29/20 17:20 Last Admin: 03/25/20 17:24 Dose: 116 ml Documented by: [id number] Levetiracetam (Keppra) 500 mg PO BID [facility] Stop: 04/24/20 21:59 Last Admin: 03/25/20 22:31 Dose: 500 mg Documented by: [id number] Melatonin (Melatonin) 6 mg PO HS [facility] Stop: 04/24/20 21:59 Last Admin: 03/25/20 22:31 Dose: 6 mg Documented by: [id number] Quetiapine Fumarate (Seroquel) 100 mg PO [facility] Stop: 04/24/20 21:59 Last Admin: 03/25/20 22:33 Dose: 100 mg Documented by: [id number] Ropinirole HCl (Requip) 2 mg PO DAILY@1900 [facility] Stop: 04/24/20 21:59 Last Admin: 03/25/20 22:32 Dose: 2 mg Documented by: [id number] Discontinued Medications Aspirin (Aspirin) 324 mg PO NOW STA Stop: 03/25/20 19:08 Last Admin: 03/25/20 19:12 Dose: 324 mg Documented by: [id number] Clopidogrel Bisulfate (Plavix) 300 mg PO NOW STA Stop: 03/25/20 19:08 Last Admin: 03/25/20 19:12 Dose: 300 mg Documented by: [id number] Sodium Chloride (Nss 1000ml) 1,000 mls @ 50 mls/hr IV .Q20H [facility] Stop: 04/24/20 16:59 Last Admin: 03/25/20 17:42 Dose: Not Given Documented by: [id number] Discharge Plan Visit Data *Final* Discharge Date/Time: 03/25/20 21:30 Chief Complaint: Stroke Alert Stated Complaint: STROKE ALERT ED Provider: Douglas Carmona Discharge Problem: Stroke-like symptoms Patient Disposition: Admitted As Inpatient Discharge Instructions Interventions: ED Discharge Assessment Last Done: 03/25/20 21:30
--- NOTE | 2020-03-25 17:28 | CT Scan Report ---
CT head/brain wo con CLINICAL HISTORY: Stroke evaluation HEADACHE COMPARISON STUDY: 03/23/2019 TECHNIQUE: Axial CT of the brain is performed from the vertex to the skull base. IV contrast was not administered for this examination. A dose lowering technique was utilized adhering to the principles of ALARA. CT DOSE: 1219.54 mGy.cm FINDINGS: No intra or extra-axial mass lesions are visualized. There is no CT evidence of acute cortical infarc tion. There is no evidence of midline shift. There is no acute hemorrhage. No calvarial fractures ar e visualized. There are mild white matter hypodensities likely on a small vessel basis. There is no evidence of pathologic ventricular dilatation. There is no evidence of acute sinusitis IMPRESSION: No acute intracranial findings ACT 112: Negative or not required by law. Electronically signed by: Mateusz Suarez M.D. 03/25/2020 5:27 PM
--- NOTE | 2020-03-25 17:36 | CT Scan Report ---
CT angio head w con CLINICAL HISTORY: Stroke evaluation HEADACHE TECHNIQUE: CT angiography of the head was performed in a dynamic helical fashion during intravenous a dministration of 116 cc of Optiray 320. MIP imaging was performed. A dose lowering technique was util ized adhering to the principles of ALARA. CT DOSE: COMPARISON STUDY: Noncontrast head CT performed the same day FINDINGS: There is a calcific plaque involving the left vertebral artery at the level the foramen mag num. There is extensive calcific plaque involving the right cavernous carotid. There are no lesion bhatia spicious for aneurysm. There are no major intracranial branch occlusions. IMPRESSION: 1. No evidence of major intracranial branch occlusion 2. No evidence of aneurysm 3. Extensive calcific plaque at the level of the right cavernous carotid. ACT 112: Negative or not required by law. Electronically signed by: Mateusz Suarez M.D. 03/25/2020 5:35 PM
[2020-03-25 17:39] LABS: Basophils # (auto) 0.03 K/uL (0-0.2); Basophils % (auto) 0.8 %; Eosinophils # (auto) 0.09 K/uL (0-0.5); Eosinophils % (auto) 2.5 %; Hematocrit (blood only) 33.9 % (42-52); Hemoglobin 11.7 g/dL (14.0-18.0); Immature Granulocytes # (auto) 0.01 K/uL (0.00-0.02); Immature Granulocytes % (auto) 0.3 %; Lymphocytes # (auto) 1.29 K/uL (1.2-3.4); Lymphocytes % (auto) 36.2 %; Mean Corpuscular Hemoglobin 31.7 pg (25-34); Mean Corpuscular Hgb Conc 34.5 g/dL (32-36); Mean Corpuscular Volume 91.9 fL (80-100); Mean Platelet Volume 10.8 fL (7.4-10.4); Monocytes # (auto) 0.44 K/uL (0.11-0.59); Monocytes % (auto) 12.4 %; Neutrophils % (auto) 47.8 %; Platelet Count 127 K/uL (130-400); RDW Coefficient of Variation 13.5 % (11.5-14.5); RDW Standard Deviation 44.6 fL (36.4-46.3); Red Blood Count 3.69 M/uL (4.7-6.1); White Blood Count 3.56 K/uL (4.8-10.8)
--- NOTE | 2020-03-25 17:43 | CT Scan Report ---
CT angio neck with con CLINICAL HISTORY: Stroke evaluation HEADACHE COMPARISON STUDY: 03/23/2019 TECHNIQUE: CT angiography was performed from the aortic arch to the skull base. MIP imaging was perfo rmed. The patient was scanned in a dynamic helical fashion during intravenous administration of 116 c c of Optiray 320. A dose lowering technique was utilized adhering to the principles of ALARA. CT DOSE: Technique: CT angiogram of the carotid and vertebral arteries was obtained using intravenous contrast and 3-D reconstruction. NASCET criteria was utilized. Findings: There is a 50% stenosis of the proximal right internal carotid artery. There is extensive calcific pl aque at the level the proximal right internal carotid artery. There is also extensive calcific plaque at the level of the right cavernous carotid. There is no occlusion. There is no dissection. There is extensive calcific plaque at the level left carotid bulb and proximal left internal carotid. There is a 60% stenosis at the level of the proximal left internal carotid artery. There is no occlu eloy. There is no dissection. There is mild to moderate calcific plaque at the level of the cavernous carotid. There is calcific plaque within the distal left vertebral artery at the level the foramen magnum with a 50% stenosis. There is no evidence of hemodynamically significant right vertebral stenosis. The ri ght vertebral artery is dominant. IMPRESSION: 1. No significant change from the preceding study 2. 50% diameter stenosis of the proximal right internal carotid artery, and 60% diameter stenosis of the proximal left internal carotid artery 3. 50% diameter stenosis of the distal left vertebral artery. ACT 112: Negative or not required by law. Electronically signed by: Mateusz Suarez M.D. 03/25/2020 5:42 PM
[2020-03-25 17:52] LABS: INR 1.1 (0.9-1.1); Partial Thromboplastin Time 27.6 Seconds (21.0-31.0); Prothrombin Time 11.9 Seconds (9.0-12.0)
[2020-03-25 18:12] LABS: Alanine Aminotransferase 79 U/L (12-78); Albumin Globulin Ratio 0.7 (0.9-2); Albumin Level 2.5 gm/dl (3.4-5.0); Alkaline Phosphatase 86 U/L (45-117); BUN Creatinine Ratio 10.1 (10-20); Bilirubin,Total 0.3 mg/dl (0.2-1); Blood Urea Nitrogen 8 mg/dl (7-18); Calcium 7.4 mg/dl (8.5-10.1); Carbon Dioxide 24 mmol/L (21-32); Chloride 108 mmol/L (98-107); Creatinine Clr Calc Pharmacy 118.1 ml/min; Est GFR (African American) 112.3; Est GFR (Non-African American) 96.9; Globulin 3.4 gm/dl (2.5-4.0); Glucose 246 mg/dl (70-99); Total Protein 5.9 gm/dl (6.4-8.2); Troponin I < 0.015 ng/ml (0-0.045)
[2020-03-25 18:19] LABS: Sodium 136 mmol/L (136-145)
[2020-03-25 18:21] LABS: Aspartate Aminotransferase 57 U/L (15-37); Potassium 3.6 mmol/L (3.5-5.1)
[2020-03-25 18:25] LABS: Giant Platelets 1+
[2020-03-25] MEDS ORDERED: CLOPIDOGREL BISULFATE 300 MG TAB PO STA (19:07)
[2020-03-25] MEDS ORDERED: ASPIRIN CHEW 324 MG PO STA (19:07)
--- NOTE | 2020-03-25 21:18 | History & Physical Report ---
Date of Service March 25, 2020 Assessment & Plan (1) Stroke-like symptoms: Suspect TIA given patients description of symptom onset and quick resolution, extensive calcific plaque at the level of the right cavernous carotid. Presently stable, no neurological deficits. Patient administered ASA 324mg and Plavix load in ER with direction from Stroke Team at [facility]. -Observation to medical floor with telemetry -Check lipid panel, HgbA1C -Continue Crestor 10mg po daily -Hold Propranolol 40mg po BID to allow for permissive HTN -Initiate ASA 81mg po daily and Plavix 75mg po daily to be continued x 3 weeks followed by ASA 81mg po daily -Check MRI Brain -Check 2D echo -PT/OT evaluation -Neurology Consultation appreciated Present on Admission?: Yes (2) Depression: Chronic. Stable -Continue Doxepin, Citalopram, Seroquel Present on Admission?: Yes (3) RLS (restless legs syndrome): Chronic. Stable -Continue Ropinirole 2mg po daily Present on Admission?: Yes (4) Seizure disorder: Patient presently on Keppra after SDH. No recent Seizure -Continue Keppra 500mg po BID Present on Admission?: Yes (5) Alcohol dependence: Patient with alcohol dependence, presently in rehabilitation - sober x 12 days. Out of window for withdrawal -Continue Clonidine -Encouragement offered Present on Admission?: Yes (6) Hypertension: Blood pressure well controlled at present -Hold Propranolol to allow for permissive HTN -Will continue Clonidine to prevent rebound hypertension Present on Admission?: Yes (7) Hyperlipidemia: Chronic -Check Lipid panel -Continue Crestor 10mg po daily -Continue Tricor Present on Admission?: Yes (8) Anxiety: Chronic -Continue Hydroxyzine -Continue Buspirone Present on Admission?: Yes (9) Hyperglycemia: Elevated blood sugar, no documented history of DM. ?New diagnosis -Fingersticks, insulin management with basal/bolus regimen - goal blood sugar 100 - 140 especially after CVA/TIA -Lantus 7u BID, ISS -HgbA1C pending Present on Admission?: Yes (10) Pancytopenia: Patient with pancytopenia, ?bone marrow suppression from EtOH? -Repeat CBC in AM -Peripheral smear consult to look for dysplasia F/E/N - Heplock, monitor electrolytes and replete as needed, AHA/CC diet as tolerated with aspiration precautions Ppx - SCDs Code - Full Dispo - Observation to medical floor with telemetry Admission and Anticipated Discharge Date Admission Date: 03/25/20 Anticipated date of discharge: 03/26/20 History of Present Illness Chief Complaint: gait instability Primary Care Provider: Matheus Shine Hammonds is a pleasant 59yo C male with history of Depression, Anxiety, HTN, HLP, current alcoholic in recovery - 13 days sober. He was in his rehab fa cility today and was out walking around when he experienced an acute episode of sharp right temporal pain around 15:45. He then experienced a disturbance in his gait, feeling that he was not placing his feet correctly and that he was leaning to the left. He then had a second episode of severe right temporal pain. He walked into the building and collapsed in a chair. He reports difficulty getting up as well as feeling of fatigue, slow speech and blurry vision. EMS was called and he was transported to the hospital. He reports that en route it was "like somebody flipped a switch" and his symptoms resolved entirely. He now has a dull global headache, no additional complaints. Specifically, no numbness/tingling/weakness/visual disturbance/confusion. No CP/palpitations/SOB/cough/wheeze. No history of prior CVA/TIAs that he is aware of. 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 Second one approximately 1.5 year ago occurring spontaneously. He is on Keppra and follows with Dr. Hooks. ER Course: Code Stroke called, ASA 324mg, Plavix 300mg, NSS Allergies Allergy/AdvReac Type Severity Reaction Status Date / Time bee venom protein (honey bee) Allergy Severe ANAPHYLAXIS Verified 03/25/20 19:00 cat dander Allergy Intermediate Itchy/Watery Verified 03/25/20 19:00 Eyes, Itchy throat tamsulosin Allergy Intermediate Hives Verified 03/25/20 19:00 Home Medications Home Medications Medication Instructions Recorded Confirmed Type rosuvastatin [Crestor] 10 mg PO QAM 09/13/18 03/25/20 History epinephrine [EpiPen] 0.3 mg IM DIRECTED PRN 03/21/19 03/25/20 History pantoprazole 40 mg PO QAM 03/21/19 03/25/20 History clonidine HCl 0.1 mg tablet 0.1 mg PO DAILY tab 09/01/19 03/25/20 History hydroxyzine pamoate 50 mg capsule 50 mg PO DAILY PRN cap 09/01/19 03/25/20 History buspirone 5 mg tablet 5 mg PO BID tab 11/11/19 03/25/20 History citalopram 40 mg tablet 40 mg PO DAILY tab 11/11/19 03/25/20 History melatonin 5 mg capsule 5 mg PO HS 11/11/19 03/25/20 History propranolol 40 mg tablet 40 mg PO BID 11/11/19 03/25/20 History quetiapine 100 mg tablet 100 mg PO HS 11/11/19 03/25/20 History ropinirole 2 mg tablet 2 mg PO .COMPLEX 90 Days #90 tab 11/11/19 03/25/20 Rx levetiracetam 500 mg tablet 500 mg PO BID 30 Days #60 tab 01/25/20 03/25/20 Rx fenofibrate nanocrystallized 145 mg PO HS 03/15/20 03/25/20 History doxepin 100 mg PO HS 03/25/20 03/25/20 History Past Med/Surg History Social History Preferred Language: Somali Communication Ability: Effective Senior Applications Developer Required: No Beliefs That Will Affect Care: None Current Living Situation: Spouse Feels Safe at Home: Yes Safety Concerns: Feels Safe At This Time Smoking Status: Current every day smoker Tobacco Type: cigarettes ; Hx Alcohol Use: Yes Hx Substance Use: No Review of Systems Review of Systems: All systems reviewed & are unremarkable except as noted in HPI & below Physical Exam Physical Exam: General: patient resting comfortably, NAD, non-toxic in appearance, AA&O x 4 Skin: warm, dry, intact, no rashes or lesions HEENT: NC/AT, PERRL, EOMI, anicteric sclera, conjunctiva without injection, external ear normal to inspection and nontender, nares patent, moist mucus membranes, dentition intact, no oropharyngeal lesions, neck supple, trachea midline, no LAD, no thyromegaly, no JVD Heart: +S1/S2, regular, no m/r/g Lungs: equal air entry bilaterally, no rales/rhonchi/wheezes Abd: +BS, soft, NT/ND, no masses/organomegaly/ascites Ext: warm, 2+ pulses in UE/LE bilaterally, no clubbing/cyanosis or edema Neuro: nonfocal, patient AA&O x 4, speech intact, no facial droop, CN II - XII intact, sensation to light touch intact, MS 5/5 in UE/LE bilaterally, mild di sturbance in rapid alternating movements noted with hand flip Results & Data Results & Data ([facility]) Vital Signs (Past 12 Hours) Vital Signs Temp Pulse Pulse Resp BP BP Pulse Ox 03/25/20 19:14 57 L 18 143/93 H 99 03/25/20 18:01 59 L 20 141/82 H 97 03/25/20 17:46 56 L 16 124/78 96 03/25/20 17:23 36.7 C 58 L 22 129/75 97 Laboratory Results Lab Results 03/25/20 03/25/20 03/25/20 Range/Units 17:30 17:30 17:30 WBC 3.56 L (4.8-10.8) K/uL RBC 3.69 L (4.7-6.1) M/uL Hgb 11.7 L (14.0-18.0) g/dL Hct 33.9 L (42-52) % MCV 91.9 (80-100) fL MCH 31.7 (25-34) pg MCHC 34.5 (32-36) g/dL RDW Std Deviation 44.6 (36.4-46.3) fL RDW Coeff of Antonio 13.5 (11.5-14.5) % Plt Count 127 L (130-400) K/uL MPV 10.8 H (7.4-10.4) fL Immature Gran % (Auto) 0.3 % Neut % (Auto) 47.8 % Lymph % (Auto) 36.2 % [place] % (Auto) 12.4 % Eos % (Auto) 2.5 % Baso % (Auto) 0.8 % Immature Gran # (Auto) 0.01 (0.00-0.02) K/uL Neut # (Auto) 1.70 (1.4-6.5) K/uL Lymph # (Auto) 1.29 (1.2-3.4) K/uL [place] # (Auto) 0.44 (0.11-0.59) K/uL Eos # (Auto) 0.09 (0-0.5) K/uL Baso # (Auto) 0.03 (0-0.2) K/uL Giant Platelets 1+ PT 11.9 (9.0-12.0) Seconds INR 1.1 (0.9-1.1) APTT 27.6 (21.0-31.0) Seconds PTT Ratio 1.0 Sodium (136-145) mmol/L Potassium (3.5-5.1) mmol/L Chloride (98-107) mmol/L Carbon Dioxide (21-32) mmol/L Anion Gap (3-11) BUN (7-18) mg/dl Creatinine (0.6-1.4) mg/dl Est Cr Clr Drug Dosing ml/min Est GFR ( Amer) Est GFR (Non-Af Amer) BUN/Creatinine Ratio (10-20) Glucose (70-99) mg/dl POC Glucose (70-99) mg/dl Calcium (8.5-10.1) mg/dl Magnesium (1.8-2.4) mg/dl Total Bilirubin (0.2-1) mg/dl AST (15-37) U/L ALT (12-78) U/L Alkaline Phosphatase (45-117) U/L Troponin I (0-0.045) ng/ml Total Protein (6.4-8.2) gm/dl Albumin (3.4-5.0) gm/dl Globulin (2.5-4.0) gm/dl Albumin/Globulin Ratio (0.9-2) Specimen Hemolysis Blood Type Cancelled Antibody Screen Cancelled 03/25/20 03/25/20 03/25/20 Range/Units 17:30 17:34 18:12 WBC (4.8-10.8) K/uL RBC (4.7-6.1) M/uL Hgb (14.0-18.0) g/dL Hct (42-52) % MCV (80-100) fL MCH (25-34) pg MCHC (32-36) g/dL RDW Std Deviation (36.4-46.3) fL RDW Coeff of Antonio (11.5-14.5) % Plt Count (130-400) K/uL MPV (7.4-10.4) fL Immature Gran % (Auto) % Neut % (Auto) % Lymph % (Auto) % [place] % (Auto) % Eos % (Auto) % Baso % (Auto) % Immature Gran # (Auto) (0.00-0.02) K/uL Neut # (Auto) (1.4-6.5) K/uL Lymph # (Auto) (1.2-3.4) K/uL Dim[place] # (Auto) (0.11-0.59) K/uL Eos # (Auto) (0-0.5) K/uL Baso # (Auto) (0-0.2) K/uL Giant Platelets PT (9.0-12.0) Seconds INR (0.9-1.1) APTT (21.0-31.0) Seconds PTT Ratio Sodium 136 (136-145) mmol/L Potassium 3.6 (3.5-5.1) mmol/L Chloride 108 H (98-107) mmol/L Carbon Dioxide 24 (21-32) mmol/L Anion Gap 4.0 (3-11) BUN 8 (7-18) mg/dl Creatinine 0.79 (0.6-1.4) mg/dl Est Cr Clr Drug Dosing 118.1 ml/min Est GFR ( Amer) 112.3 Est GFR (Non-Af Amer) 96.9 BUN/Creatinine Ratio 10.1 (10-20) Glucose 246 H (70-99) mg/dl POC Glucose 315 H* (70-99) mg/dl Calcium 7.4 L (8.5-10.1) mg/dl Magnesium 2.0 (1.8-2.4) mg/dl Total Bilirubin 0.3 (0.2-1) mg/dl AST 57 H (15-37) U/L ALT 79 H (12-78) U/L Alkaline Phosphatase 86 (45-117) U/L Troponin I < 0.015 (0-0.045) ng/ml Total Protein 5.9 L (6.4-8.2) gm/dl Albumin 2.5 L (3.4-5.0) gm/dl Globulin 3.4 (2.5-4.0) gm/dl Albumin/Globulin Ratio 0.7 L (0.9-2) Specimen Hemolysis Blood Type O Positive Antibody Screen NEGATIVE 03/25/20 Range/Units 21:56 WBC (4.8-10.8) K/uL RBC (4.7-6.1) M/uL Hgb (14.0-18.0) g/dL Hct (42-52) % MCV (80-100) fL MCH (25-34) pg MCHC (32-36) g/dL RDW Std Deviation (36.4-46.3) fL RDW Coeff of Antonio (11.5-14.5) % Plt Count (130-400) K/uL MPV (7.4-10.4) fL Immature Gran % (Auto) % Neut % (Auto) % Lymph % (Auto) % [place] % (Auto) % Eos % (Auto) % Baso % (Auto) % Immature Gran # (Auto) (0.00-0.02) K/uL Neut # (Auto) (1.4-6.5) K/uL Lymph # (Auto) (1.2-3.4) K/uL Dim[place] # (Auto) (0.11-0.59) K/uL Eos # (Auto) (0-0.5) K/uL Baso # (Auto) (0-0.2) K/uL Giant Platelets PT (9.0-12.0) Seconds INR (0.9-1.1) APTT (21.0-31.0) Seconds PTT Ratio Sodium (136-145) mmol/L Potassium (3.5-5.1) mmol/L Chloride (98-107) mmol/L Carbon Dioxide (21-32) mmol/L Anion Gap (3-11) BUN (7-18) mg/dl Creatinine (0.6-1.4) mg/dl Est Cr Clr Drug Dosing ml/min Est GFR ( Amer) Est GFR (Non-Af Amer) BUN/Creatinine Ratio (10-20) Glucose (70-99) mg/dl POC Glucose 287 H (70-99) mg/dl Calcium (8.5-10.1) mg/dl Magnesium (1.8-2.4) mg/dl Total Bilirubin (0.2-1) mg/dl AST (15-37) U/L ALT (12-78) U/L Alkaline Phosphatase (45-117) U/L Troponin I (0-0.045) ng/ml Total Protein (6.4-8.2) gm/dl Albumin (3.4-5.0) gm/dl Globulin (2.5-4.0) gm/dl Albumin/Globulin Ratio (0.9-2) Specimen Hemolysis Blood Type Antibody Screen Diagnostic Findings CT head/brain wo con CLINICAL HISTORY: Stroke evaluation HEADACHE COMPARISON STUDY: 03/23/2019 TECHNIQUE: Axial CT of the brain is performed from the vertex to the skull base. IV contrast was not administered for this examination. A dose lowering technique was utilized adhering to the principles of ALARA. CT DOSE: 1219.54 mGy.cm FINDINGS: No intra or extra-axial mass lesions are visualized. There is no CT evidence of acute cortical infarction. There is no evidence of midline shift. There is no acute hemorrhage. No calvarial fractures are visualized. There are mild white matter hypodensities likely on a small vessel basis. There is no evidence of pathologic ventricular dilatation. There is no evidence of acute sinusitis IMPRESSION: No acute intracranial findings ACT 112: Negative or not required by law. Electronically signed by: Mateusz Suarez M.D. 03/25/2020 5:27 PM Dictated: 03/25/20 1725 Transcribed: 03/25/20 1726 ---- --- CT angio head w con CLINICAL HISTORY: Stroke evaluation HEADACHE TECHNIQUE: CT angiography of the head was performed in a dynamic helical fashion during intravenous administration of 116 cc of Optiray 320. MIP imaging was performed. A dose lowering technique was utilized adhering to the principles of ALARA. CT DOSE: COMPARISON STUDY: Noncontrast head CT performed the same day FINDINGS: There is a calcific plaque involving the left vertebral artery at the level the foramen magnum. There is extensive calcific plaque involving the right cavernous carotid. There are no lesion suspicious for aneurysm. There are no major intracranial branch occlusions. IMPRESSION: 1. No evidence of major intracranial branch occlusion 2. No evidence of aneurysm 3. Extensive calcific plaque at the level of the right cavernous carotid. ACT 112: Negative or not required by law. Electronically signed by: Mateusz Suarez M.D. 03/25/2020 5:35 PM Dictated: 03/25/20 1731 Transcribed: 03/25/[address] angio neck with con CLINICAL HISTORY: Stroke evaluation HEADACHE COMPARISON STUDY: 03/23/2019 TECHNIQUE: CT angiography was performed from the aortic arch to the skull base. MIP imaging was performed. The patient was scanned in a dynamic helical fashion during intravenous administration of 116 cc of Optiray 320. A dose lowering technique was utilized adhering to the principles of ALARA. CT DOSE: Technique: CT angiogram of the carotid and vertebral arteries was obtained using intravenous contrast and 3-D reconstruction. NASCET criteria was utilized. Findings: There is a 50% stenosis of the proximal right internal carotid artery. There is extensive calcific plaque at the level the proximal right internal carotid artery. There is also extensive calcific plaque at the level of the right cavernous carotid. There is no occlusion. There is no dissection. There is extensive calcific plaque at the level left carotid bulb and proximal left internal carotid. There is a 60% stenosis at the level of the proximal left internal carotid artery. There is no occlusion. There is no dissection. There is mild to moderate calcific plaque at the level of the cavernous carotid. There is calcific plaque within the distal left vertebral artery at the level the foramen magnum with a 50% stenosis. There is no evidence of hemodynamically significant right vertebral stenosis. The right vertebral artery is dominant. IMPRESSION: 1. No significant change from the preceding study 2. 50% diameter stenosis of the proximal right internal carotid artery, and 60% diameter stenosis of the proximal left internal carotid artery 3. 50% diameter stenosis of the distal left vertebral artery. ACT 112: Negative or not required by law. Electronically signed by: Mateusz Suarez M.D. 03/25/2020 5:42 PM Dictated: 03/25/20 1735 Transcribed: 03/25/201734 ECG Additional Comments: Sinus bradycardia at 59bpm, normal axis, CP=112, QRS=94, QXu=105, no acute ischemic changes Code Status & VTE Plan Code Status FULL CODE VTE Prophylaxis Plan VTE Prophylaxis will be ordered: Yes PG Care Time/CCT Total # of Minutes Spent Total Time Spent with Patient: Total time spent is greater than 50% in coordination of care (as documented) at patient's floor/unit and/or counseling patient: Coding Level of Care Code 33806 OBS Care - Level 3 Diagnoses Stroke-like symptoms R29.90 Depression F32.9 Depression Type: unspecified RLS (restless legs syndrome) G25.81 Seizure disorder G40.909 Alcohol dependence F10.21 Substance use status: in remission Hypertension I10 Hypertension type: essential hypertension Hyperlipidemia E78.5 Hyperlipidemia type: unspecified Anxiety F41.9 Hyperglycemia R73.9 Pancytopenia D61.818 (1) Alcohol dependence Substance use status: in remission Qualified Code(s): F10.21 - Alcohol dependence, in remission (2) Depression Depression Type: unspecified Qualified Code(s): F32.9 - Major depressive disorder, single episode, unspecified (3) Hyperlipidemia Hyperlipidemia type: unspecified Qualified Code(s): E78.5 - Hyperlipidemia, unspecified (4) Hypertension Hypertension type: essential hypertension Qualified Code(s): I10 - Essential (primary) hypertension
[2020-03-25] MEDS ORDERED: GLUCAGON FOR INJ 1 MG VIAL SQ PRN (21:57)
[2020-03-25] MEDS ORDERED: GLUCOSE 10 TABS/TUBE PO PRN (21:57)
[2020-03-25] MEDS ORDERED: ACETAMINOPHEN 325 MG TAB PO PRN (21:57)
[2020-03-25] MEDS ORDERED: DEXTROSE 50% 50 ML SYRINGE IV PRN (21:57)
[2020-03-25] MEDS ORDERED: CARBOHYDRATES FOR HYPOGLYCEMIA PO PRN (21:57)
[2020-03-25] MEDS ORDERED: GLUCOSE 40% GEL 15 GM TUBE PO PRN (21:57)
[2020-03-25] MEDS ORDERED: ROPINIROLE HCL 1 MG TABLET PO SCH (22:00)
[2020-03-25] MEDS ORDERED: FENOFIBRATE NANOCRYSTALLIZED 145 MG TABLET PO SCH (22:00)
[2020-03-25] MEDS ORDERED: MELATONIN 3 MG TAB PO SCH (22:00)
[2020-03-25] MEDS ORDERED: QUETIAPINE FUMARATE 100 MG TABLET PO SCH (22:00)
[2020-03-25] MEDS ORDERED: DOXEPIN HCL 50 MG CAPSULE PO SCH (22:15)
[2020-03-25] MEDS: INSULIN GLARGINE SOLOSTAR 100 UNITS/ML 3 ML PEN SC SCH (22:29)
[2020-03-25] MEDS: INSULIN ASPART 100 UNITS/ML 3 ML PEN SC SCH (22:30)
[2020-03-25] MEDS: levETIRAcetam 500 MG TAB PO SCH (22:31)
[2020-03-26 06:09] LABS: Estimated Average Glucose 186 mg/dl; Hemoglobin A1C 8.1 % (4.5-5.6)
[2020-03-26 06:44] LABS: Basophils # (auto) 0.03 K/uL (0-0.2); Basophils % (auto) 0.8 %; Eosinophils # (auto) 0.13 K/uL (0-0.5); Eosinophils % (auto) 3.4 %; Hematocrit (blood only) 39.3 % (42-52); Hemoglobin 13.3 g/dL (14.0-18.0); Immature Granulocytes # (auto) 0.02 K/uL (0.00-0.02); Immature Granulocytes % (auto) 0.5 %; Lymphocytes # (auto) 1.16 K/uL (1.2-3.4); Lymphocytes % (auto) 30.5 %; Mean Corpuscular Hemoglobin 31.1 pg (25-34); Mean Corpuscular Hgb Conc 33.8 g/dL (32-36); Mean Corpuscular Volume 91.8 fL (80-100); Mean Platelet Volume 10.8 fL (7.4-10.4); Monocytes # (auto) 0.45 K/uL (0.11-0.59); Monocytes % (auto) 11.8 %; Neutrophils # (auto) 2.01 K/uL (1.4-6.5); Platelet Count 134 K/uL (130-400); RDW Coefficient of Variation 13.6 % (11.5-14.5); Red Blood Count 4.28 M/uL (4.7-6.1)
[2020-03-26 07:23] LABS: Albumin Level 3.1 gm/dl (3.4-5.0); BUN Creatinine Ratio 10.1 (10-20); Bilirubin Direct 0.2 mg/dl (0-0.2); Calcium 8.4 mg/dl (8.5-10.1); Creatinine Clr Calc Pharmacy 107.2 ml/min; Est GFR (Non-African American) 93.2; Potassium 3.6 mmol/L (3.5-5.1)
[2020-03-26 07:26] LABS: Bilirubin,Total 0.7 mg/dl (0.2-1)
[2020-03-26 07:27] VITALS: O2SAT 95
[2020-03-26] MEDS: levETIRAcetam 500 MG TAB PO SCH (08:34)
[2020-03-26] MEDS: INSULIN GLARGINE SOLOSTAR 100 UNITS/ML 3 ML PEN SC SCH (08:35)
[2020-03-26] MEDS: INSULIN ASPART 100 UNITS/ML 3 ML PEN SC SCH ×2 (08:38→13:26)
[2020-03-26] MEDS ORDERED: ASPIRIN 81 MG ECTAB PO SCH (09:00)
[2020-03-26] MEDS ORDERED: CLOPIDOGREL BISULFATE 75 MG TAB PO SCH (09:00)
[2020-03-26] MEDS ORDERED: ROSUVASTATIN CALCIUM 10 MG TAB PO SCH (09:00)
[2020-03-26] MEDS ORDERED: PANTOprazole 40 MG TAB PO SCH (09:00)
[2020-03-26] MEDS ORDERED: cloNIDine HCL 0.1 MG TAB PO SCH (09:00)
[2020-03-26] MEDS ORDERED: CITALOPRAM 40 MG TAB PO SCH (09:00)
[2020-03-26] MEDS ORDERED: GADOBUTROL 30ML VIAL IV PRN (10:02)
--- NOTE | 2020-03-26 10:29 | Magnetic Resonance Report ---
MRI OF THE BRAIN COMBO CLINICAL HISTORY: Transient ischemic attack. COMPARISON STUDY: CT of the brain dated 03/25/2020. MRI of the brain dated 10/23/2017 and 08/07/2017. TECHNIQUE: MRI of the brain was performed utilizing various T1 and T2-weighted sequences in the axial , sagittal, and coronal planes. Contrast-enhanced sequences were acquired following the administratio n of 11 cc of Gadavist. FINDINGS: Brain parenchyma: There is mild involutional change noting patchy subcortical and periventricular bertram roangiopathic disease. There is no hemorrhage or mass effect. There is no restricted diffusion to sug gest acute ischemia. No enhancing mass lesion is identified on the postcontrast images. Naylor-white ma tter differentiation is preserved. No extra-axial fluid collection is seen. The cerebellar tonsils ar e normal in configuration. Mild chronic pachymeningeal enhancement along the right hemisphere is unch anged dating back to 2016. Ventricles, sulci, and cisterns: Normal in configuration. Pituitary and sella: Unremarkable. Intracranial vasculature: Normal flow voids are maintained at the skull base. Orbits: The bony orbits are grossly intact. Orbital contents are normal in appearance. Sinuses and mastoids: There is a 2.4 cm retention cyst in the left maxillary antrum and a 12 mm reten tion cyst in the right maxillary antrum. There is trace mucosal thickening within the maxillary antra . The remaining paranasal sinuses are clear. The mastoid air cells are well pneumatized. Calvarium: Unremarkable. Cervical cord: Partially visualized cervical spinal cord is normal in morphology and signal intensity . IMPRESSION: No acute intracranial abnormality. ACT 112: Negative or not required by law. Electronically signed by: Richar Minor M.D. 03/26/2020 10:27 AM
[2020-03-26 11:35] VITALS: TEMP 97.5
--- NOTE | 2020-03-26 11:42 | Neurology Consultation ---
Date of Consultation March 26, 2020 Assessment & Plan (1) Stroke-like symptoms: Gaudencio Cotton is a 59 yo man w/ PMH of history of TIA, unknown carotid artery stenosis, history of subdural, alcohol abuse, major depression, hypertension, hyperlipidemia, history of epilepsy and restless leg syndrome who presented to [facility] on 03/25/2020 with acute onset of generalized weakness, headache, dizziness and gait imbalance. # Stroke-like symptoms: He denied any overt numbness/tingling/weakness and event occurred in the setting of a severe headache. Query whether his symptoms are related more to a complicated migraine rather than true TIA, however he has significant stroke risk factors so would recommend repeating TIA work-up as below. - Vitals, Neurochecks, NIHSS per unit routine - BP parameters: SBP CAP 180, restart home anti-hypertensives - Complete ischemic stroke workup with TTE with bubble - Consult speech, PT, OT for supportive management - Counselled concerning stroke education, smoking cessation, healthy diet, physical activity, weight loss - Follow up with PCP for assistance with outpatient goals (BP <130/80, LDL <70, A1c <7) - Follow up in neurology clinic with Dr. Hooks as scheduled in April 2020 Secondary Stroke Prevention: - Antiplatelet: consider ASA 81mg po daily - Anticoagulation: Not indicated at this time - Statin: Consider changing to atorvastatin 80mg daily # New diagnosis of DM: - Sliding scale insulin and accuchecks per primary team to avoid hyperglycemia - Work with primary care to start metformin or other diabetic treatment #Epilepsy: -Continue Keppra 500 mg twice daily. Could consider transitioning to Lamictal to help with mood. #Restless leg syndrome: - Stable, continue home ropinirole 2 mg nightly Thank you for this interesting consult. Plan of care was discussed with primary team. Please call with any questions. (2) Pancytopenia: (3) Seizure disorder: (4) RLS (restless legs syndrome): (5) Carotid artery stenosis: (6) History of subdural hematoma: History of Present Illness Attending Physician: Dalila De Luna, DO History of Present Illness Gaudencio Cotton is a 59 yo man w/ PMH of history of TIA, unknown carotid artery stenosis, history of subdural, alcohol abuse, major depression, hypertension, hyperlipidemia, history of epilepsy and restless leg syndrome who presented to [facility] on 03/25/2020 with acute onset of generalized weakness, headache, dizziness and gait imbalance. Last seen well around 3 PM on 03/25. In the ED, patient was afebrile, BP 129/75, heart rate 58, satting 97% on room air. Labs notable for WBC 3.56, hemoglobin 11.7, platelets 127, sodium 136, potassium 3.6, creatinine 0.79, glucose 246, INR 1.1, calcium mildly low at 7.4, magnesium 2, troponin negative, A1c 8.1, LDL was unable to calculate due to hypertriglyceridemia (triglycerides 406). CT head independently reviewed and showed no hemorrhage or hypodensity, positive for mild generalized atrophy and small vessel disease. CTA head and neck showed mild right ICA stenosis, moderate left ICA stenosis at the bifurcation with a complex plaque, moderate to severe severe left vertebral artery stenosis secondary to intracranial atherosclerosis; no LVO or aneurysm noted. MRI of the brain shows no acute infarct, moderate small vessel disease and mild to moderate generalized atrophy. He was admitted for TIA work-up. On examination this morning, he reports that symptoms started with a right tem poral headache that came on relatively sudden in onset. This was followed by tunnel vision, imbalance and a sensation that he was veering to the left in general sense of feeling unwell. He denied any true numbness, tingling or weakness during the event. The entire event was over within an hour and a half, including headache dissipated. He denies having frequent headaches and reports that he has had may be "2 migraine headaches" in his entire life. The headache he had yesterday was associated with mild nausea but no vomiting, photophobia or phonophobia. He reports that he does not take aspirin due to his alcohol abuse. He has had some of his psychiatric medications changed recently as he was discharged from inpatient psych on March 21, 2020. He reports having follow-up with Dr. Hooks in April. Allergies Allergy/AdvReac Type Severity Reaction Status Date / Time bee venom protein (honey bee) Allergy Severe ANAPHYLAXIS Verified 03/25/20 19:00 cat dander Allergy Intermediate Itchy/Watery Verified 03/25/20 19:00 Eyes, Itchy throat tamsulosin Allergy Intermediate Hives Verified 03/25/20 19:00 Home Medications Home Medications Medication Instructions Recorded Confirmed Type rosuvastatin [Crestor] 10 mg PO QAM 09/13/18 03/25/20 History epinephrine [EpiPen] 0.3 mg IM DIRECTED PRN 03/21/19 03/25/20 History pantoprazole 40 mg PO QAM 03/21/19 03/25/20 History clonidine HCl 0.1 mg tablet 0.1 mg PO DAILY tab 09/01/19 03/25/20 History hydroxyzine pamoate 50 mg capsule 50 mg PO DAILY PRN cap 09/01/19 03/25/20 History buspirone 5 mg tablet 5 mg PO BID tab 11/11/19 03/25/20 History citalopram 40 mg tablet 40 mg PO DAILY tab 11/11/19 03/25/20 History melatonin 5 mg capsule 5 mg PO HS 11/11/19 03/25/20 History propranolol 40 mg tablet 40 mg PO BID 11/11/19 03/25/20 History quetiapine 100 mg tablet 100 mg PO HS 11/11/19 03/25/20 History ropinirole 2 mg tablet 2 mg PO .COMPLEX 90 Days #90 tab 11/11/19 03/25/20 Rx levetiracetam 500 mg tablet 500 mg PO BID 30 Days #60 tab 01/25/20 03/25/20 Rx fenofibrate nanocrystallized 145 mg PO HS 03/15/20 03/25/20 History doxepin 100 mg PO HS 03/25/20 03/25/20 History Patient History Medical History Alcohol abuse Anxiety (Chronic) Depression Diverticulosis (Chronic) Hyperlipidemia (Chronic) Hypertension (Chronic) Left arm weakness Panic attacks Prostate cancer (Chronic 07/30/16) "STAGING: Prostate, adenocarcinoma, triny 3 + 4, PSA 4.65, cT1c, group IIA Prostate gland size by TRUS - 25.1 TREATMENT: 1. Status post prostate seed implant as boost 11/06/2016 43 seeds were placed 8500 cGy 2. Status post completion of IMRT/IGRT completed 01/28/2017 received 4500 cGy" On 12/06/16 15:38 Tricia Solorio wrote "STAGING: Prostate, adenocarcinoma, triny 3 + 4, PSA 4.65, cT1c, group IIA Prostate gland size by TRUS - 25.1 TREATMENT: 1. Status post prostate seed implant as boost 11/06/[address] aced 8500 cGy" On 08/22/16 10:51 Cristofer Cottrell wrote "STAGING: Prostate, adenocarcinoma, triny 3 + 4, PSA 4.65, cT1c, group IIA Prostate gland size by TRUS - 25.1 " TIA (transient ischemic attack) Surgical History History of cholecystectomy History of repair of ACL Family History Other Cancer Social History Preferred Language: Dominican Communication Ability: Effective Rig Operator Required: No Beliefs That Will Affect Care: None Current Living Situation: Spouse Feels Safe at Home: Yes Safety Concerns: Feels Safe At This Time Smoking Status: Current every day smoker Tobacco Type: cigarettes ; Hx Alcohol Use: Yes Hx Substance Use: No Review of Systems Review of Systems: 14 point review of systems completed and negative except as in HPI. Exam (Neuro) Physical Exam: General Exam: GEN: NAD, sitting down in examination bed. HEENT: No conjunctival injection, no rhinorrhea. CV: RRR on monitor, no significant edema. PULM: Nonlabored respirations on room air. Neuro Exam: MS: Awake and Alert. Oriented to person, place, and date. Speech fluent and appropriate without dysarthria or paraphasic errors. Language intact including naming, comprehension, repetition. Cognition and memory grossly intact. Attention intact. No neglect. CN: Visual wiseman full. No extinction to double simultaneous stimuli. Unable to visualize fundi on fundoscopic exam. PERRLA OU. EOMI without nystagmus. Facial sensation intact to LT. Facial muscles full and symmetric. Hearing intact to finger rub bilaterally. Uvula midline with symmetric palatal elevation. Shoulder shrug normal. Tongue midline. MOTOR: Normal bulk and tone. No pronator drift. BUE strength 5/5 at deltoids, biceps, triceps, wrist flexors and extensors, and finger flexors bilaterally. BLE strength 5/5 at iliopsoas, hamstrings, quadriceps, tibialis anterior, and gastrocnemius bilaterally. REFLEXES: 1+ at biceps, triceps, brachioradialis, 1+ patella, and trace Achilles bilaterally. Flexor plantar responses bilaterally. SENSORY: Intact to LT/vibration/temperature throughout, no extinction to double simultaneous stimuli. COORDINATION: No dysmetria or ataxia on [id number] bilaterally. Normal Wood bilaterally. GAIT: Deferred due to physical status. NIH STROKE SCALE 1A. Level of Consciousness (0-3) = 0 1B. LOC Questions (0-2) = 0 1C. LOC Commands (0-2) = 0 2. Best Horizontal Gaze (0-2) = 0 3. Visual Wiseman (0-3) = 0 4. Facial Palsy (0-3) = 0 5. Motor Arm Right (0-4) = 0 Left (0-4) = 0 6. Motor Leg Right (0-4) = 0 Left (0-4) = 0 7. Limb Ataxia (0-2) = 0 8. Sensory (0-2) = 0 9. Best Language (0-3) = 0 10. Dysarthria (0-2) = 0 11. Extinction and Inattention (0-2) = 0 NIHSS TOTAL = 0 Results & Data ([facility]) Vital Signs (Past 12 Hours) Vital Signs Temp Pulse Pulse Resp BP Pulse Ox 03/26/20 08:10 51 L 03/26/20 07:26 36.6 C 52 L 18 113/73 95 03/26/20 03:57 36.4 C L 51 L 18 110/68 94 PG Care Time/CCT Total # of Minutes Spent Total Time Spent with Patient: Total time spent is greater than 50% in coordination of care (as documented) at patient's floor/unit and/or counseling patient: Coding Level of Care Code 87311 Inpt Consult Level 5 Diagnoses Stroke-like symptoms R29.90 Pancytopenia D61.818 Seizure disorder G40.909 RLS (restless legs syndrome) G25.81 Carotid artery stenosis I65.29 History of subdural hematoma Z86.79
--- NOTE | 2020-03-26 14:01 | Discharge Summary ---
Date of Service March 26, 2020 Admission HPI Per Admitting Provider Gaudencio Hammonds is a pleasant 59yo C male with history of Depression, Anxiety, HTN, HLP, current alcoholic in recovery - 13 days sober. He was in his rehab facility today and was out walking around when he experienced an acute episode of sharp right temporal pain around 15:45. He then experienced a disturbance in his gait, feeling that he was not placing his feet correctly and that he was leaning to the left. He then had a second episode of severe right temporal pain. He walked into the building and collapsed in a chair. He reports difficulty getting up as well as feeling of fatigue, slow speech and blurry vision. EMS was called and he was transported to the hospital. He reports that en route it was "like somebody flipped a switch" and his symptoms resolved entirely. He now has a dull global headache, no additional complaints. Specifically, no numbness/tingling/weakness/visual disturbance/confusion. No CP/palpitations/SOB/cough/wheeze. No history of prior CVA/TIAs that he is aware of. 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 Second one approximately 1.5 year ago occurring spontaneously. He is on Keppra and follows with Dr. Hooks. ER Course: Code Stroke called, ASA 324mg, Plavix 300mg, NSS Principal Diagnosis Pt feels at his usual. No return of sx as noted in HPI or new stroke-like sx. Pt denies fever, SOB, chest pain, abd pain, n/v/c/d, LE pain or swelling. He has been tolerating PO without issue. Discharge Exam Constitutional WD/WN, vitals as above Eyes normal visual rivero by confrontation and + anicteric sclerae Neck normal visual inspection and trachea midline Respiratory normal respiratory effort, lungs clear to auscultation Cardiovascular Rate/Rhythm: regular rate and regular rhythm Gastrointestinal (Abdomen) Inspection/Auscultation: abdomen not distended Percussion/Palpation: abdomen soft; abdomen nontender Musculoskeletal Head/Neck/Chest: normocephalic and head atraumatic Skin no rashes, warm and dry Neurologic CN's II-XI intact bilaterally and awake; not confused Speech / Cognition: normal speech Psychiatric A+Ox3, euthymic affect Discharge Data Allergies Allergy/AdvReac Type Severity Reaction Status Date / Time bee venom protein (honey bee) Allergy Severe ANAPHYLAXIS Verified 03/25/20 19:00 cat dander Allergy Intermediate Itchy/Watery Verified 03/25/20 19:00 Eyes, Itchy throat tamsulosin Allergy Intermediate Hives Verified 03/25/20 19:00 Consultations 03/25/20 19:07 ED Decision to Admit Stat 03/25/20 21:57 Consult Neurology Routine Ordered Studies 03/25/20 16:59 CT angio head w con Stat CT angio neck with con Stat CT head/brain wo con Stat 03/26/20 09:00 MR brain wo/w con Routine Hospital Course (1) Stroke-like symptoms: On admission, suspected TIA given patients description of symptom onset and quick resolution, extensive calcific plaque at the level of the right cavernous carotid. Patient administered ASA 324mg and Plavix load in ER with direction from Stroke Team at [facility] [place]. -Neurology feels likely TIA vs complicated migraine CT/MRI brain neg for acute CTA head/neck noted for stenosis is multiple arteries, however not at significant levels ECHO with EF 60-65% and no structural abnormalities, no change from ECHO done 07/2017 -Check LDL unable to be calculated due to TG >400, HDL low at 21 Pt taking low dose statin FORM DRAFTER, increased dosing to 80mg -Initiate ASA 81mg po daily and Plavix 75mg po daily to be continued x 3 weeks followed by ASA 81mg po daily (2) Depression: Chronic. Stable -Continue Doxepin, Citalopram, Seroquel (3) RLS (restless legs syndrome): Chronic. Stable -Continue Ropinirole 2mg po daily (4) Seizure disorder: Patient presently on Keppra after SDH. No recent Seizure -Continue Keppra 500mg po BID (5) Alcohol dependence: Patient with alcohol dependence, presently in rehabilitation - sober x 12 days. Out of window for withdrawal -Continue Clonidine -Encouragement offered (6) Hypertension: Blood pressure well controlled at present -Hold Propranolol to allow for permissive HTN -Will continue Clonidine to prevent rebound hypertension (7) Hyperlipidemia: Chronic -Check Lipid panel -Continue Crestor 10mg po daily -Continue Tricor (8) Anxiety: Chronic -Continue Hydroxyzine -Continue Buspirone (9) Hyperglycemia: Elevated blood sugar, no documented history of DM. A1c 8.1 Started on metformin Discussed diet and early enough in process that DM could be reversed with diet Pt given handouts for Mediterranean diet (10) Pancytopenia: Patient with pancytopenia, ?bone marrow suppression from EtOH? -Peripheral smear consult to look for dysplasia pending on d/c D/W pathology and slides reviewed. States this may be incidental and pt should have repeat CBC in 4-6 weeks. Order should include specific request for "peripheral smear for review with pathologist" Total Time Total Time Spent Total Time Spent (In Minutes): >30 Total Time Includes: Examination of the Patient, Discharge Planning, Medication Reconciliation, Communication With Other Providers and Other Discharge Plan Discharge Items Patient Disposition: Drug & Alcohol Rehab Reason For Visit: STROKE-LIKE SYMPTOMS Discharge Diagnosis: TIA vs complicated migraine Activity: Resume your previous activity Non-emergency contact: Primary Care Provider Call non-emergency contact if: you have any medication questions and your symptoms worsen Follow-up/Referrals: Jose Hooks MD [Physician] - (follow up in April as scheduled prior) Matheus Riojas [Primary Care Provider] - Diet: Carb Consistent or DM2 Addtl Attending Provider Instructions: It is unclear if you had a TIA (formerly called a mini-stroke) or a complicated migraine. If your symptoms were related to a TIA, you are at increased risk for a full stroke in the next 3 months. If you have return of same symptoms, you should still come to the ED as your treatment will be different if you were to develop a full stroke. Aspirin and plavix will help to decrease this risk. You will only take both the aspirin and plavix for 21 days total unless otherwise directed. After that time, you will only take the aspirin unless you have repeat of similar or new stroke-like symptoms. You should get a glucometer so that you can check your blood sugars if needed. You do not need to check your blood sugars daily, but you might want to check them first thing in the morning once every 1-2 weeks to make sure your blood sugars are being controlled on the new medication. You will need to have a repeat CBC in 4-6 weeks as we discussed. Pending Studies at Discharge: Yes Studies:: Peripheral smear pathology consult ECHO final report Stand-Alone Forms: My [facility] Skilled Items Patient informed of condition?: Yes DNR: No Discharge Level of Care: Other Communicable Disease: No Discharge Prognosis: Improving Lines: None Urinary Catheter: No Medications and DC Order Prescriptions: New clopidogrel 75 mg Tablet 75 mg PO QAM Qty: 21 RF: 0 atorvastatin 80 mg tablet 80 mg PO HS Qty: 30 RF: 0 aspirin 81 mg Tablet,Delayed Release (Dr/Ec) 81 mg PO QAM Qty: 30 RF: 0 metformin 500 mg tablet 500 mg PO BID Qty: 60 RF: 0 Continued levetiracetam 500 mg tablet 500 mg PO BID 30 Days Qty: 60 RF: 4 citalopram 40 mg tablet 40 mg PO DAILY RF: 0 propranolol 40 mg tablet 40 mg PO BID RF: 0 quetiapine 100 mg tablet 100 mg PO HS RF: 0 melatonin 5 mg capsule 5 mg PO HS RF: 0 ropinirole 2 mg tablet 2 mg PO .COMPLEX 90 Days Qty: 90 RF: 1 pantoprazole 40 mg Tablet,Delayed Release (Dr/Ec) 40 mg PO QAM RF: 0 epinephrine [EpiPen] 0.3 mg/0.3 mL Auto-Injector 0.3 mg IM DIRECTED PRN (Reason: Allergic Reaction) RF: 0 clonidine HCl 0.1 mg tablet 0.1 mg PO DAILY RF: 0 hydroxyzine pamoate 50 mg capsule 50 mg PO DAILY PRN (Reason: Anxiety) RF: 0 buspirone 5 mg tablet 5 mg PO BID RF: 0 fenofibrate nanocrystallized 145 mg tablet 145 mg PO HS RF: 0 doxepin 100 mg capsule 100 mg PO HS RF: 0 Discontinued rosuvastatin [Crestor] 10 mg Tablet 10 mg PO QAM RF: 0 Admission Data Admit Date/Time: 03/25/20 21:17 Attending Provider: Dalila De Luna Admit Provider: Latoya Santos Primary Care Provider: Matheus Riojas Other Providers: Latoya Santos ; Elin Michelle Other Interventions: Discharge Summary Assessment (RN) Last Done: 03/26/20 15:54 Coding Level of Care Code D/C Day Management >30 mins Diagnoses Stroke-like symptoms R29.90 Depression F32.9 Depression Type: unspecified RLS (restless legs syndrome) G25.81 Seizure disorder G40.909 Alcohol dependence F10.21 Substance use status: in remission Hypertension I10 Hypertension type: essential hypertension Hyperlipidemia E78.5 Hyperlipidemia type: unspecified Anxiety F41.9 Hyperglycemia R73.9 Pancytopenia D61.818
--- NOTE | 2020-03-26 14:07 | XCELERA ---
[id number]
[2020-03-26 15:56] VITALS: BP 113/73; PULSE 57
--- NOTE | 2020-03-26 21:56 | Electrocardiogram Report ---
Test Reason : Blood Pressure : / mmHG Vent. Rate : 059 BPM Atrial Rate : 059 BPM P-R Int : 152 ms QRS Dur : 094 ms QT Int : 464 ms P-R-T Axes : 056 019 048 degrees QTc Int : 459 ms Sinus bradycardia Otherwise normal ECG When compared with ECG of 27-JUL-2019 12:33, No significant change was found Confirmed by Patel Solis ([id number]) on 03/26/2020 9:56:04 PM Referred By: REFERRED SELF Confirmed By:Patel Solis
== END 2020-03-26 17:09 | disposition alcohol treatment (31) ==
LOC: 2N 17:12 → ED 17:12 → SUATTDRO 21:17 → 2N 21:30

== ENCOUNTER 2020-06-28 12:59 | Observation (INO) ==
--- NOTE | 2020-06-28 16:03 | History & Physical Report ---
Date of Service June 28, 2020 Assessment & Plan (1) Stroke-like symptoms: Patient presented with strokelike symptoms he was not a candidate for thrombolytic therapy. He will continue on antiplatelet agents, high-dose statin statin and controlling secondary risk factors. Neurology and vascular surgery consultations be undertaken. MRI will be ordered carotid ultrasound be ordered Patient's home medication list that lists both rosuvastatin and atorvastatin and fenofibrate. Will hold the rosuvastatin at this point time and fenofibrate continuing the atorvastatin (2) Carotid artery stenosis: Patient has had recurrent symptoms in a short period of time although no defined evidence of stroke. (3) Seizure disorder: Patient continue on Keppra 500 twice daily plus Topamax 25 twice daily neurology consultation be undertaken. It is assumed these medications are result of her previous subdural hematoma which may have led to some seizure activity that time there was also some consideration of alcohol use which he is not using any longer (4) Hypertension: Patient takes patient was previously on propranolol looks like there was a trial of low-dose lisinopril and he is now on Benicar 5 mg once a day (5) Prostate cancer: (6) Major depression, recurrent: Patient is typically on citalopram 40 BuSpar 7.5 twice daily hydroxyzine twice daily, clonidine 0.1 daily doxepin 100 at bedtime quetiapine 100 at bedtime. I spoke to the patient's and the patient during my evaluation we will get a try to streamline some of his medications. We can reduce his BuSpar eliminate clonidine and doxepin reduce the Seroquel to 50 continue his citalopram and on 06/29 we will try to contact [place] to further understand his mental health regiment (7) Diabetes: His type 2 diabetes typically controlled with metformin this will be held as he had some contrast for likely angiogram at [facility] will employ sliding scale insulin and a carbohydrate conservative diet once he passes speech and swallowing screens Admission and Anticipated Discharge Date Admission Date: June 28, 2020 History of Present Illness Primary Care Provider: Matheus Riojas Patient is a 60-year-old male transferred from [facility] where he presented to the ER via 911 from his physician's office after he had some transient visual loss. This was preceded by some expressive aphasia when at home. Reportedly by verbal report CT angiogram and showed some progression of his previously known carotid artery disease. Patient was discharged from our facility March 26, 2020 after suspected TIA. During that work-up CT and MRI of the brain were negative for stroke right cavernous carotid stenosis was seen echocardiogram was performed without evidence of PFO or intracardiac thrombotic sources patient had a statin increased on discharge. The other health problems include newly diagnosed diabetes, epilepsy and r estless leg syndrome distant history of subdural hematoma and prostate adenocarcinoma status post seed implantation. He he is also previously been inpatient psychiatric treatment for major depression Allergies Allergy/AdvReac Type Severity Reaction Status Date / Time bee venom protein (honey bee) Allergy Severe ANAPHYLAXIS Verified 03/25/20 19:00 cat dander Allergy Intermediate Itchy/Watery Verified 03/25/20 19:00 Eyes, Itchy throat tamsulosin Allergy Intermediate Hives Verified 03/25/20 19:00 Home Medications Home Medications Medication Instructions Recorded Confirmed Type epinephrine [EpiPen] 0.3 mg IM DIRECTED PRN 03/21/19 05/18/20 History pantoprazole 40 mg PO QAM 03/21/19 05/18/20 History clonidine HCl 0.1 mg tablet 0.1 mg PO DAILY tab 09/01/19 05/18/20 History hydroxyzine pamoate 50 mg capsule 50 mg PO DAILY PRN cap 09/01/19 05/18/20 History buspirone 5 mg tablet 5 mg PO BID tab 11/11/19 05/18/20 History citalopram 40 mg tablet 40 mg PO DAILY tab 11/11/19 05/18/20 History melatonin 5 mg capsule 5 mg PO HS 11/11/19 05/18/20 History propranolol 40 mg tablet 40 mg PO BID 11/11/19 05/18/20 History quetiapine 100 mg tablet 100 mg PO HS 11/11/19 05/18/20 History levetiracetam 500 mg tablet 500 mg PO BID 30 Days #60 tab 01/25/20 05/18/20 Rx fenofibrate nanocrystallized 145 mg PO HS 03/15/20 05/18/20 History doxepin 100 mg PO HS 03/25/20 05/18/20 History aspirin 81 mg PO QAM #30 tab 03/26/20 05/18/20 Rx atorvastatin 80 mg PO HS #30 tab 03/26/20 05/18/20 Rx metformin 500 mg PO BID #60 tab 03/26/20 05/18/20 Rx ropinirole 2 mg tablet 2 mg PO .COMPLEX 90 Days #90 tab 05/02/20 05/18/20 Rx topiramate 25 mg tablet 25 mg PO BID #60 tab 05/18/20 05/18/20 Rx Past Med/Surg History Medical History Alcohol abuse Anxiety Depression Diverticulosis Hyperlipidemia Hypertension Left arm weakness Panic attacks Prostate cancer (07/30/16) "STAGING: Prostate, adenocarcinoma, triny 3 + 4, PSA 4.65, cT1c, group IIA Prostate gland size by TRUS - 25.1 TREATMENT: 1. Status post prostate seed implant as boost 11/06/2016 43 seeds were placed 8500 cGy 2. Status post completion of IMRT/IGRT completed 01/28/2017 received 4500 cGy" On 12/06/16 15:38 Tricia Solorio wrote "STAGING: Prostate, adenocarcinoma, triny 3 + 4, PSA 4.65, cT1c, group IIA Prostate gland size by TRUS - 25.1 TREATMENT: 1. Status post prostate seed implant as boost 11/06/2016 43 seeds were placed 8500 cGy" On 08/22/16 10:51 Cristofer Cottrell wrote "STAGING: Prostate, adenocarcinoma, triny 3 + 4, PSA 4.65, cT1c, group IIA Prostate gland size by TRUS - 25.1 " TIA (transient ischemic attack) Surgical History History of cholecystectomy History of repair of ACL Family History Father , Mother age 56 of colon cancer Colorectal cancer Mother , the age 78 of a blood clot Dementia Clotting disorder Other Cancer Social History Smoking Status: Current every day smoker Tobacco Type: Cigars Cigarettes Per Day: 1 cigar per day. Quit cigarettes 30 years ago; Do You Dip or Chew Tobacco: No; Hx Alcohol Use: No ( no alcohol for 4 months. 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 Physical Exam Physical Exam: The patient appeared well nourished and normally developed. Vital signs as documented. Head exam is normocephalic atraumatic no scleral icterus Neck is without JVD, thyromegaly, or carotid bruits. Lungs are clear to auscultation, no focal loss of breath sounds Cardiac exam, Rhythm is regular.. No murmurs, rubs or gallops. Abdominal exam reveals normal bowel sounds, soft non tender, no masses Extremities are nonedematous and both pedal pulses are normal. Neurologic exam is alert and oriented, no focal loss of strength or sensation only abnormality on exam is some slow speech and the fact of picking his words but he gets most words and repeats most words correctly has a very mild left [id number] dysmetria otherwise his neurological exam is unremarkable Skin is without bruises or rashes Psychologically is without concerns for anxiety or depression. PG Care Time/CCT Total # of Minutes Spent Total Time Spent with Patient: Total time spent is greater than 50% in coordination of care (as documented) at patient's floor/unit and/or counseling patient: Coding Level of Care Code 88056 OBS Care - Level 3 Diagnoses Stroke-like symptoms R29.90 Carotid artery stenosis I65.29 Seizure disorder G40.909 Hypertension I10 Hypertension type: essential hypertension Prostate cancer C61 Major depression, recurrent F33.9 Diabetes E11.9 (1) Hypertension Hypertension type: essential hypertension Qualified Code(s): I10 - Essential (primary) hypertension
[2020-06-28] MEDS ORDERED: ONDANSETRON INJ 2 MG/ML 2 ML VIAL IV PRN (16:09)
[2020-06-28] MEDS ORDERED: ALUMINUM/MAGNESIUM SUSP 30 ML UDC PO PRN (16:09)
[2020-06-28] MEDS ORDERED: PHARMACIST DISCHARGE MED REC CONSULT PRN (16:09)
[2020-06-28] MEDS ORDERED: GLUCOSE 40% GEL 15 GM TUBE PO PRN (16:15)
[2020-06-28] MEDS ORDERED: GLUCOSE 10 TABS/TUBE PO PRN (16:15)
[2020-06-28] MEDS ORDERED: DEXTROSE 50% 50 ML SYRINGE IV PRN (16:15)
[2020-06-28] MEDS ORDERED: CARBOHYDRATES FOR HYPOGLYCEMIA PO PRN (16:15)
[2020-06-28] MEDS ORDERED: GLUCAGON FOR INJ 1 MG VIAL SQ PRN (16:15)
[2020-06-28] MEDS ORDERED: SODIUM CHLORIDE 0.9% 1000ML 1,000 ML IV SCH (17:15)
[2020-06-28] MEDS ORDERED: INSULIN ASPART 100 UNITS/ML 3 ML PEN SC SCH (18:00)
[2020-06-28] MEDS ORDERED: Nursing to Pharmacy Communication SCH (18:00)
--- NOTE | 2020-06-28 19:53 | Magnetic Resonance Report ---
MRI OF THE BRAIN WITHOUT CONTRAST CLINICAL HISTORY: stroke like symptoms COMPARISON STUDY: Head CT and CTA of the head March 25, 2020. MRI of the brain March 26, 2020. TECHNIQUE: Utilizing a 1.5 Kiana magnet and dedicated coil, multiplanar, multiecho imaging of the bra in was performed without IV contrast. FINDINGS: There are no foci of restricted diffusion to suggest acute infarct. No acute intracranial h emorrhage, midline shift or mass effect is present. Ventricular system is normal. Basilar cisterns ar e patent. There are no extra-axial collections. No intracranial masses are identified on this unenhan tiny examination. Multiple white matter T2 hyperintense foci are similar to MRI of March 26, 2020. The a ppearance of the brain is unchanged. Calvarial signal is normal. There is mild polypoid mucosal thick ening of the maxillary sinuses. This is unchanged. IMPRESSION: 1. No acute intracranial findings. 2. No change in appearance of the brain since MRI of March 26, 2020. Multiple white matter T2 hyperinte nse foci which suggest small vessel disease. ACT 112: Negative or not required by law. Electronically signed by: Lucius Sweeney M.D. 06/28/2020 7:52 PM
[2020-06-28] MEDS: TOPIRAMATE 25 MG TAB PO SCH (20:26)
[2020-06-28] MEDS: ATORVASTATIN 40 MG TAB PO SCH (20:28)
[2020-06-28] MEDS: levETIRAcetam 500 MG TAB PO SCH (20:29)
[2020-06-28] MEDS: QUETIAPINE FUMARATE 25 MG TABLET PO SCH (20:30)
[2020-06-28] MEDS: INSULIN ASPART 100 UNITS/ML 3 ML PEN SC SCH (20:42)
[2020-06-28] MEDS: HEPARIN SOD 5,000 UNIT/0.5 ML VIAL SQ SCH (20:43)
--- NOTE | 2020-06-28 20:51 | Ultrasound Report ---
CAROTID ARTERY ULTRASOUND CLINICAL HISTORY: stroke like symptoms COMPARISON STUDY: CTA of the neck March 25, 2020. Carotid ultrasound August 07, 2017. TECHNIQUE: Real-time, grayscale, and color Doppler sonography of the carotid and vertebral arteries w as performed. Images were viewed in the transverse and longitudinal planes. FINDINGS: There is moderate atherosclerotic plaque. Velocity measurements are listed below. COMMON CAROTID PEAK SYSTOLIC VELOCITY (CM/S): RIGHT 65 LEFT 81 ICA PEAK SYSTOLIC VELOCITY (CM/S): RIGHT 64 LEFT 106 Systolic ratios between the internal to common carotid arteries are normal. Antegrade flow is seen in the vertebral arteries. The external carotid arteries are patent. Blood pressure in the right arm measured 124/74. Blood pressure in the left arm measured 133/81. IMPRESSION: Moderate atherosclerotic plaque without sonographic evidence of a hemodynamically signif icant stenosis. ACT 112: Negative or not required by law. Electronically signed by: Lucius Sweeney M.D. 06/28/2020 8:49 PM
[2020-06-28] MEDS ORDERED: QUETIAPINE FUMARATE 100 MG TABLET PO SCH (21:00)
[2020-06-28] MEDS ORDERED: DOXEPIN HCL 50 MG CAPSULE PO SCH (21:00)
[2020-06-28] MEDS ORDERED: PROPRANOLOL HCL 20 MG TAB PO SCH (21:00)
[2020-06-28] MEDS ORDERED: MELATONIN 3 MG TAB PO SCH (21:00)
[2020-06-28] MEDS: ROPINIROLE HCL 1 MG TABLET PO SCH (21:16)
[2020-06-29 05:40] LABS: Basophils # (auto) 0.02 K/uL (0-0.2); Basophils % (auto) 0.4 %; Eosinophils # (auto) 0.25 K/uL (0-0.5); Eosinophils % (auto) 4.6 %; Hematocrit (blood only) 42.8 % (42-52); Hemoglobin 14.1 g/dL (14.0-18.0); Immature Granulocytes # (auto) 0.04 K/uL (0.00-0.02); Immature Granulocytes % (auto) 0.7 %; Lymphocytes % (auto) 25.7 %; Mean Corpuscular Hemoglobin 29.6 pg (25-34); Mean Corpuscular Hgb Conc 32.9 g/dL (32-36); Mean Corpuscular Volume 89.7 fL (80-100); Mean Platelet Volume 10.3 fL (7.4-10.4); Monocytes # (auto) 0.38 K/uL (0.11-0.59); Neutrophils # (auto) 3.35 K/uL (1.4-6.5); Neutrophils % (auto) 61.6 %; Platelet Count 141 K/uL (130-400); RDW Coefficient of Variation 13.3 % (11.5-14.5); RDW Standard Deviation 43.7 fL (36.4-46.3); Red Blood Count 4.77 M/uL (4.7-6.1); White Blood Count 5.44 K/uL (4.8-10.8)
[2020-06-29 06:01] LABS: Estimated Average Glucose 131 mg/dl; Hemoglobin A1C 6.2 % (4.5-5.6)
[2020-06-29 06:15] LABS: BUN Creatinine Ratio 12.6 (10-20); Calcium 8.7 mg/dl (8.5-10.1); Creatinine Clr Calc Pharmacy 102.5 ml/min; Est GFR (African American) 90.9; Est GFR (Non-African American) 78.4; Potassium 3.7 mmol/L (3.5-5.1)
--- NOTE | 2020-06-29 06:30 | Communication Note ---
Date of Service: June 29, 2020 Called to evaluate patient for altered mental status and weakness told nurse that he couldn't move. By time of my evaluation patient was groggy but arousable and oriented easily participated with neuro exam which was without abnormality. Complaining of headache, given tylenol. No focal deficit he says he gets this from time to time, differential including polypharmacy, depression, Seizure and post ictal state. Without any acute findings at time of my presentation will defer further workup to primary team.
[2020-06-29] MEDS: ACETAMINOPHEN 325 MG TAB PO PRN ×2 (08:48→15:44)
[2020-06-29] MEDS: INSULIN ASPART 100 UNITS/ML 3 ML PEN SC SCH ×4 (08:51→21:12)
[2020-06-29] MEDS: FENOFIBRATE NANOCRYSTALLIZED 145 MG TABLET PO SCH (08:56)
[2020-06-29] MEDS ORDERED: ASPIRIN 325 MG ECTAB PO SCH (09:00)
[2020-06-29] MEDS ORDERED: cloNIDine HCL 0.1 MG TAB PO SCH (09:00)
[2020-06-29] MEDS: CITALOPRAM 40 MG TAB PO SCH (09:25)
[2020-06-29] MEDS: PANTOprazole 40 MG TAB PO SCH (09:25)
[2020-06-29] MEDS: levETIRAcetam 500 MG TAB PO SCH (09:25)
[2020-06-29] MEDS: TOPIRAMATE 25 MG TAB PO SCH (09:26)
[2020-06-29] MEDS: HEPARIN SOD 5,000 UNIT/0.5 ML VIAL SQ SCH ×2 (09:26→20:22)
--- NOTE | 2020-06-29 11:38 | Neurology Consultation ---
Date of Consultation June 29, 2020 Assessment & Plan (1) Stroke-like symptoms: (2) Seizure disorder: (3) Carotid artery stenosis: (4) History of subdural hematoma: (5) Headache: (6) Major depression, recurrent: Patient has a history of subdural hematomas which have resolved. He has had a seizure disorder controlled fairly well on Keppra. He has developed some new headaches recently is having some symptoms over the last 5-6 days of a vague nature. After reviewing the history of June 23 I suspect his episode was dehydration leading to hypotension / vertebral basilar insufficiency. He has been having some headaches intermittently other symptomatology that could be due to hypertension. His headaches are nonspecific , and not necessarily migrainous. The patient has significant carotid artery stenosis well as vertebral stenosis. Most recent CT angiography in March of this year did not show any specific surgical lesions and he is not showing evidence of emboli to the brain ( MRI was stable). He has moderate old small vessel ischemic disease as multiple risk f actors for stroke including tobacco use, hypertension history (currently hypotension ), diabetes, and dyslipidemia markedly elevated triglycerides. He was also a heavy alcohol user in the past although for the last 4 months he has stopped use. He has restless leg syndrome fairly well controlled on Requip . Patient has a history of significant depression which is fairly well controlled on medication but I suspect he has too much medication that is probably giving him side effects. I do not like the combination of a tricyclic such as doxepin with an SSRI such as citalopram as it could lead to serotonin syndrome. Recommendations: 1. continue with increasing topiramate to 50 milligrams twice daily. In 2-3 weeks we could increase this to 100 milligrams twice daily, titrating from there as needed to help control seizures and headaches. It is also a mood stabilizer. 2. decrease Keppra to 250 milligrams twice daily for 1 month then discontinue. This could be completed as an outpatient. 3. Continue 81 milligram aspirin tablet daily. I have no reason to add clopidogrel at this time. I do not believe he has had another TIA . 4. discontinue doxepin. Continue with citalopram. Try to find another way for sleep. 5. I do not believe the patient needs repeat CT angiography at this time , however, that could be done later in the fall as an outpatient. 6. increase activity as able. 7. Keep hydrated with fluids controlling hypotension as best as possible. 8. Follow up with Dr. Hooks as an outpatient. Overall I spent a total of 110 minutes with this case including review of records, review of MRI films, direct evaluation the patient bedside, and discussing the case with the patient at bedside add Dr. Fields, including differential diagnosis and treatment options. History of Present Illness Reason for Consultation: patient is a 60-year-old, who I was asked to see the request of Dr. Fields, for neurologic consultation regarding Attending Physician: Garrick Fields MD History of Present Illness This patient is followed by Dr. Hooks and has a history of 2 subdural hematomas. The 1st was in July of 2017 and showed a small right cerebral convexity subdural hematoma after a fall down basement steps. He had been drinking alcohol he states. An MR angiography of the head was unremarkable at that time. EEG was unremarkable. The patient noted some focal motor seizures of the left upper extremity and was given Keppra 500 milligrams twice daily. He did well and his dose was decreased ( sometime in 2017 ) to Keppra 250 milligrams twice daily. In August of 2018, the patient had an episode of acute confusion and altered responsiveness. He had [address] scan of the head showed resolution of the small right subdural hematoma but interval development of a 3 millimeter left subdural hematoma with a small acute component. Keppra was increased to 500 milligrams twice daily were and has remained Up until today. his seizures have been fairly well controlled. Patient has had some issues with major depression, recurrent, severe, without psychosis over the course of 2018 including some suicidal ideation and alcohol dependence. He also carries a diagnosis of narcissistic personality traits. This led to several hospitalizations. He is followed currently by [facility] in [place]. He has restless legs syndrome and Requip was increased by Dr. Hooks to 2 milligrams each evening with good help. He has a history of admission in March of 2020 for an episode that started with a right temporal headache followed by tunnel vision, imbalance (veering to the left) lasting an hour and a half. at that time he was on generic Seroquel 100 milligrams a day, citalopram 40 milligrams a day, levetiracetam 500 milligrams twice a day, doxepin 100 milligrams in the evening, and buspirone 5 milligrams twice a day. MRI of the brain was unremarkable. CT angiography of the head was unremarkable. CT angiography of the neck revealed 50 percent stenosis of the right internal carotid artery, 60 percent stenosis of the left internal carotid artery and 50 percent stenosis of the distal left vertebral artery. He was discharged with a diagnosis of TIA On 81 milligram aspirin and 75 milligram clopidogrel for 3 weeks and then switched to aspirin 81 milligrams daily. An echocardiogram was unremarkable. Patient saw Dr. Hooks as an outpatient May 18, and topiramate was not produce to 25 milligrams twice daily to help prevent recent onset headaches. An ESR was ordered but the patient never obtained this. 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 Then, he had decreased balance and decreased tunnel type vision in both eyes. He felt as if he was going to pass out but he remained conscious. He rested for a few minutes, drank fluids, and then felt better. Ever since he has had nonspecific headaches and episodes of waxing and waning with decreased focusing and glassy eyes. These episodes would last anywhere from 5 minutes to 2 hours. During these times he might be somewhat slow and talking or slurred. He would be aware of what is happening and would not have any other issues in his limbs. He went to his primary physician who sent him to [facility] and he was transferred to our institution on June 28 at 1554, with a temperature of 36.3, pulse of 63, respiratory rate 16, blood pressure 103/72, and O2 saturation 94 percent. His blood pressure has remained relatively low. CBC and Chem profile were unremarkable. Total cholesterol was 151 and triglycerides 742. MRI of the brain showed no acute stroke and no change compared to the previous MRI of March 26. There was old nonspecific small vessel ischemic changes seen. A carotid ultrasound was largely unremarkable. This morning patient has a mild headache and some tingling in the left greater than right upper legs (not noticed until discovered by examination today). Allergies Allergy/AdvReac Type Severity Reaction Status Date / Time bee venom protein (honey bee) Allergy Severe ANAPHYLAXIS Verified 03/25/20 19:00 cat dander Allergy Intermediate Itchy/Watery Verified 03/25/20 19:00 Eyes, Itchy throat tamsulosin Allergy Intermediate Hives Verified 03/25/20 19:00 Home Medications Home Medications Medication Instructions Recorded Confirmed Type epinephrine [EpiPen] 0.3 mg IM DIRECTED PRN 03/21/19 05/18/20 History pantoprazole 40 mg PO QAM 03/21/19 05/18/20 History clonidine HCl 0.1 mg tablet 0.1 mg PO DAILY tab 09/01/19 05/18/20 History hydroxyzine pamoate 50 mg capsule 50 mg PO DAILY PRN cap 09/01/19 05/18/20 History buspirone 5 mg tablet 5 mg PO BID tab 11/11/19 05/18/20 History citalopram 40 mg tablet 40 mg PO DAILY tab 11/11/19 05/18/20 History melatonin 5 mg capsule 5 mg PO HS 11/11/19 05/18/20 History propranolol 40 mg tablet 40 mg PO BID 11/11/19 05/18/20 History quetiapine 100 mg tablet 100 mg PO HS 11/11/19 05/18/20 History levetiracetam 500 mg tablet 500 mg PO BID 30 Days #60 tab 01/25/20 05/18/20 Rx fenofibrate nanocrystallized 145 mg PO HS 03/15/20 05/18/20 History doxepin 100 mg PO HS 03/25/20 05/18/20 History aspirin 81 mg PO QAM #30 tab 03/26/20 05/18/20 Rx atorvastatin 80 mg PO HS #30 tab 03/26/20 05/18/20 Rx metformin 500 mg PO BID #60 tab 03/26/20 05/18/20 Rx ropinirole 2 mg tablet 2 mg PO .COMPLEX 90 Days #90 tab 05/02/20 05/18/20 Rx topiramate 25 mg tablet 25 mg PO BID #60 tab 05/18/20 05/18/20 Rx Patient History Medical History Alcohol abuse Anxiety Depression Diverticulosis Hyperlipidemia Hypertension Left arm weakness Panic attacks Prostate cancer (07/30/16) "STAGING: Prostate, adenocarcinoma, triny 3 + 4, PSA 4.65, cT1c, group IIA Prostate gland size by TRUS - 25.1 TREATMENT: 1. Status post prostate seed implant as boost 11/06/2016 43 seeds were placed 8500 cGy 2. Status post completion of IMRT/IGRT completed 01/28/2017 received 4500 cGy" On 12/06/16 15:38 Tricia Solorio wrote "STAGING: Prostate, adenocarcinoma, triny 3 + 4, PSA 4.65, cT1c, group IIA Prostate gland size by TRUS - 25.1 TREATMENT: 1. Status post prostate seed implant as boost 11/06/2016 43 seeds were placed 8500 cGy" On 08/22/16 10:51 Cristofer Cottrell wrote "STAGING: Prostate, adenocarcinoma, triny 3 + 4, PSA 4.65, cT1c, group IIA Prostate gland size by TRUS - 25.1 " TIA (transient ischemic attack) Surgical History History of cholecystectomy History of repair of ACL Family History Father , Mother age 56 of colon cancer Colorectal cancer Mother , the age 78 of a blood clot Dementia Clotting disorder Other Cancer Social History Smoking Status: Current every day smoker Tobacco Type: Cigars Cigarettes Per Day: 1 cigar per day. Quit cigarettes 30 years ago; Do You Dip or Chew Tobacco: No; Hx Alcohol Use: No ( no alcohol for 4 months. 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 [employer] Feels Safe at Home: Yes Safety Concerns: Feels Safe At This Time Review of Systems Constitutional: + fatigue; no fever and no weakness Eyes: no diplopia, no eye pain and no worsening vision Ear, Nose, Mouth, Throat: + hearing loss; no ear pain, no tinnitus, no dizziness, no hoarseness and no dysphagia Respiratory: no cough and no dyspnea Cardiovascular: no chest pain, no palpitations and no lightheadedness Gastrointestinal: no abdominal pain, no nausea and no vomiting Genitourinary: no dysuria and no urinary incontinence Musculoskeletal: no back pain, no neck pain, no radicular pain, no joint pain and no myalgia Integumentary: no rash and no lesions Neurologic: + tingling, + numbness and + headache(s); no gait abnormality, no localized weakness, no generalized weakness, no tremor(s), no abnormal movements, no abnormal speech, no confusion and no memory loss Psychiatric: + depression and + anxiety; no irritability, no difficulty concentrating, no confusion and no hallucinations Endocrine: no fatigue and no flushing Hematologic / Lymphatic: no easy bleeding and no easy bruising Allergy / Immunological: no urticaria and no problem reported Exam (Neuro) Physical Exam: The patient is right-handed. The patient is awake, alert, and attentive. Speech is normal without any aphasia or dysarthria. She can name objects, repeat phrases, and has normal spontaneous speech. Mentation and thought processes are intact, with orientation to person, place and time, and normal fund of knowledge. Attention and concentration are normal. Mood and affect are normal and appropriate. General appearance and grooming are normal. Short and long-term memory are intact. The discs are sharp with positive venous pulsations bilaterally. There are no exudates, hemorrhages, or blood vessel changes seen. Pupils are 4 mm bilaterally and reactive to light. Extraocular eye muscles are intact without nystagmus. Visual acuity and visual rivero seem normal grossly to confrontation. There are no deficits to sensation in the face in all 3 distributions of the fifth cranial nerve bilaterally. Corneal reflexes are positive bilaterally. Facial strength and symmetry was normal bilaterally. Hearing seems reasonable to conversation but he may have some mild hearing loss on the left. Palate moves well without asymmetry. There is normal sternocleidomastoid and trapezius (shoulder shrug) strength bilaterally. Tongue is midline with good strength bilaterally. Neck has a full range of motion without discomfort. There are no cervical bruits bilaterally. Cervical, thoracic, and lumbar spine are nontender to palpation. Gait is not tested but stance sitting up in bed is quite good. With outstretched arms there is no drift. There are no resting, postural, or action tremors. There is no ataxia with finger to nose testing. There is good facility in the hands. No other abnormal involuntary movements are noted. Motor strength is 5/5 diffusely in the arms bilaterally including deltoids, biceps, triceps, brachioradialis, wrist flexors and extensors, zipper trimmer hand, and intrinsic hand muscles. Motor strength is 5/5 diffusely in the legs bilaterally including hip flexors, quadriceps, hamstrings, gastrocnemius, tibialis anterior, tibialis posterior, and Peroneii muscles. Toe extensors are normal and there is good bulk in the extensor digitorum brevis muscles bilaterally. The limbs have good tone without rigidity or spasticity. There is no atrophy noted in the muscles. Muscle bulk is normal, there is no tenderness to palpation, no myotonia to percussion, and no fasciculations seen. Sensory examination reveals some decreased sensation to pin and touch in the lower extremities bilaterally. Reflexes are 1/4 in the biceps, triceps, brachioradialis, quadriceps, and Achilles tendons bilaterally. There is no clonus bilaterally. Toes are downgoing with plantar stimulation bilaterally. Peripheral pulses are present and of normal quality distally in all 4 limbs. There is no peripheral edema noted in the limbs. Results & Data ([facility]) Vital Signs (Past 12 Hours) Vital Signs Temp Pulse Pulse Resp BP Pulse Ox 06/29/20 11:06 36.5 C 55 L 16 122/72 96 06/29/20 09:00 44 L 06/29/20 02:58 36.6 C 18 122/76 93 Diagnostic Findings MRI OF THE BRAIN WITHOUT CONTRAST CLINICAL HISTORY: stroke like symptoms COMPARISON STUDY: Head CT and CTA of the head March 25, 2020. MRI of the brain March 26, 2020. TECHNIQUE: Utilizing a 1.5 Kiana magnet and dedicated coil, multiplanar, multiecho imaging of the brain was performed without IV contrast. FINDINGS: There are no foci of restricted diffusion to suggest acute infarct. No acute intracranial hemorrhage, midline shift or mass effect is present. Ventricular system is normal. Basilar cisterns are patent. There are no extra- axial collections. No intracranial masses are identified on this unenhanced examination. Multiple white matter T2 hyperintense foci are similar to MRI of March 26, 2020. The appearance of the brain is unchanged. Calvarial signal is normal. There is mild polypoid mucosal thickening of the maxillary sinuses. This is unchanged. IMPRESSION: 1. No acute intracranial findings. 2. No change in appearance of the brain since MRI of March 26, 2020. Multiple white matter T2 hyperintense foci which suggest small vessel disease. ACT 112: Negative or not required by law. Electronically signed by: Lucius Sweeney M.D. 06/28/2020 7:52 PM PG Care Time/CCT Total # of Minutes Spent Total Time Spent with Patient: Total time spent is greater than 50% in coordination of care (as documented) at patient's floor/unit and/or counseling patient: Coding Level of Care Code 88018 Office/OBS Consult Lvl 5 Diagnoses Stroke-like symptoms R29.90 Seizure disorder G40.909 Carotid artery stenosis I65.29 History of subdural hematoma Z86.79 Headache R51 Major depression, recurrent F33.9 Time Spent (min) 110
--- NOTE | 2020-06-29 17:01 | Hospitalist Progress Note ---
Date of Service June 29, 2020 Assessment & Plan (1) Stroke-like symptoms: Patient presented with strokelike symptoms he was not a candidate for thrombolytic therapy. Neurology evaluation of 06/29 does not feel this was a stroke or TIA but feels it was likley related to lower blood pressure and vertebrobasilar instability He will continue on antiplatelet agents, high-dose statin statin and controlling secondary risk factors. MRI was negative for stroke carotid ultrasound shows no hemodynamically significant lesion Patient's home medication list that lists both rosuvastatin and atorvastatin and fenofibrate. Will hold the rosuvastatin at this point time and continuing the atorvastatin/ fenofibrate (2) Carotid artery stenosis: no hemodynamically significant lesion and no defined evidence of stroke. (3) Seizure disorder: Neurology recommends to reduce Keppra to 250 mg twice daily plus increase Topamax to 50 mg twice daily Plans will be in 1 month to DC Keppra altogether and then if need be increase Topamax to 100 twice daily (4) Hypertension: Patient has been hypotensive since admission he will be given additional fluids on the and no antihypertensive medicines will be ordered (5) Prostate cancer: (6) Major depression, recurrent: Patient is typically on citalopram 40, BuSpar was reduced to 5 twice daily hydroxyzine twice daily clonidine and doxepin were stopped and Seroquel was reduced to 50 mg at bedtime plus melatonin 6 mg. Patient is concerned about anxiety however polypharmacy is likely a bigger danger to his health and anxiety at this point (7) Diabetes: His type 2 diabetes typically controlled with metformin patient is on sl iding scale insulin while here last hemoglobin A1c was 6.2 (8) High triglycerides: Patient is fasting triglycerides were 742. He will be continued on his fe nofibrate Admission and Anticipated Discharge Date Admission Date: June 28, 2020 Subjective Patient states he feels better but he feels anxious. He was seen by neurology does not feel this was a cerebrovascular ischemic event. Patient's blood pressure and pulse remain low Review of Systems Review of Systems: Mild distress and patient had complaints of anxiety Mild frontal headache, blurry or double vision no speech or swallowing issues no chest pain, pressure or palpitations no shortness of breath, cough or wheezes no abdominal pain, nausea or vomiting, diarrhea or constipation no dysuria, hematuria or frequency no focal joint pain or swelling no back pain, CVA tenderness or radicular pain no bruising, bleeding or rashes no focal signs of weakness or numbness or altered sensation no complaints or anxiety or depression. Physical Exam Physical Exam: The patient appeared well nourished and normally developed. Vital signs as documented. Head exam is normocephalic atraumatic no scleral icterus Neck is without JVD, thyromegaly, or carotid bruits. Lungs are clear to auscultation, no focal loss of breath sounds Cardiac exam, Rhythm is regular.. No murmurs, rubs or gallops. Abdominal exam reveals normal bowel sounds, soft non tender, no masses Extremities are nonedematous and both pedal pulses are normal. Neurologic exam is alert and oriented, no focal loss of strength or sensation Skin is without bruises or rashes Psychologically is without concerns for anxiety or depression. Results & Data Results & Data ([facility]) Vital Signs (Past 12 Hours) Vital Signs Temp Pulse Pulse Resp BP Pulse Ox 06/29/20 15:28 51 L 06/29/20 15:10 97.7 F 79 16 118/75 92 06/29/20 11:06 97.7 F 55 L 16 122/72 96 06/29/20 09:00 44 L PG Care Time/CCT Total # of Minutes Spent Total Time Spent with Patient: Total time spent is greater than 50% in coordination of care (as documented) at patient's floor/unit and/or counseling patient: Coding Level of Care Code 55155 Subseq Obs Care Lvl 3 Diagnoses Stroke-like symptoms R29.90 Carotid artery stenosis I65.29 Seizure disorder G40.909 Hypertension I10 Hypertension type: essential hypertension Prostate cancer C61 Major depression, recurrent F33.9 Diabetes E11.9 High triglycerides E78.1 (1) Hypertension Hypertension type: essential hypertension Qualified Code(s): I10 - Essential (primary) hypertension
[2020-06-29] MEDS ORDERED: SODIUM CHLORIDE 0.9% 1000ML 1,000 ML IV SCH (17:15)
[2020-06-29] MEDS ORDERED: LORazepam 1 MG/2 ML VIAL IV STA (18:33)
[2020-06-29] MEDS ORDERED: clonazePAM 0.5 MG TAB PO PRN (18:48)
[2020-06-29] MEDS: ROPINIROLE HCL 1 MG TABLET PO SCH (19:39)
[2020-06-29] MEDS: ATORVASTATIN 40 MG TAB PO SCH (20:19)
[2020-06-29] MEDS: QUETIAPINE FUMARATE 25 MG TABLET PO SCH (20:20)
[2020-06-29] MEDS: TOPIRAMATE 50 MG TAB PO SCH (20:21)
[2020-06-29] MEDS: levETIRAcetam 250 MG TAB PO SCH (20:22)
[2020-06-29] MEDS ORDERED: MELATONIN 3 MG TAB PO SCH (21:00)
[2020-06-30 03:24] VITALS: TEMP 97.7; O2SAT 95
[2020-06-30 06:37] LABS: Basophils # (auto) 0.03 K/uL (0-0.2); Basophils % (auto) 0.6 %; Eosinophils # (auto) 0.24 K/uL (0-0.5); Eosinophils % (auto) 4.8 %; Hematocrit (blood only) 44.1 % (42-52); Hemoglobin 14.9 g/dL (14.0-18.0); Immature Granulocytes # (auto) 0.04 K/uL (0.00-0.02); Immature Granulocytes % (auto) 0.8 %; Lymphocytes # (auto) 1.19 K/uL (1.2-3.4); Lymphocytes % (auto) 23.9 %; Mean Corpuscular Hemoglobin 30.4 pg (25-34); Mean Corpuscular Hgb Conc 33.8 g/dL (32-36); Mean Platelet Volume 10.4 fL (7.4-10.4); Monocytes # (auto) 0.44 K/uL (0.11-0.59); Monocytes % (auto) 8.9 %; Neutrophils # (auto) 3.03 K/uL (1.4-6.5); Platelet Count 149 K/uL (130-400); RDW Coefficient of Variation 13.2 % (11.5-14.5); RDW Standard Deviation 43.7 fL (36.4-46.3); White Blood Count 4.97 K/uL (4.8-10.8)
[2020-06-30 06:54] LABS: BUN Creatinine Ratio 11.2 (10-20); Calcium 8.8 mg/dl (8.5-10.1); Creatinine Clr Calc Pharmacy 94.3 ml/min; Est GFR (African American) 82.9; Est GFR (Non-African American) 71.6; Potassium 3.8 mmol/L (3.5-5.1)
[2020-06-30 07:25] LABS: Lyme Ab IgG w/WB Rflx Negative (Negative); Lyme Ab IgM w/WB Rflx Negative (Negative)
[2020-06-30 07:41] VITALS: PULSE 56
[2020-06-30] MEDS: levETIRAcetam 250 MG TAB PO SCH (08:05)
[2020-06-30] MEDS: CITALOPRAM 40 MG TAB PO SCH (08:06)
[2020-06-30] MEDS: TOPIRAMATE 50 MG TAB PO SCH (08:06)
[2020-06-30] MEDS: HEPARIN SOD 5,000 UNIT/0.5 ML VIAL SQ SCH (08:06)
[2020-06-30] MEDS: PANTOprazole 40 MG TAB PO SCH (08:06)
[2020-06-30] MEDS: FENOFIBRATE NANOCRYSTALLIZED 145 MG TABLET PO SCH (08:07)
[2020-06-30] MEDS: INSULIN ASPART 100 UNITS/ML 3 ML PEN SC SCH (08:10)
[2020-06-30] MEDS: ACETAMINOPHEN 325 MG TAB PO PRN (08:12)
--- NOTE | 2020-06-30 08:51 | Neurology Progress Note ---
Date of Service June 30, 2020 Assessment & Plan (1) Stroke-like symptoms: (2) Seizure disorder: (3) Carotid artery stenosis: (4) History of subdural hematoma: (5) Headache: (6) Major depression, recurrent: Patient has a history of subdural hematomas which have resolved. He has had a seizure disorder controlled fairly well on Keppra (and now topiramate). He has developed some new headaches recently is having some symptoms over the last 5-6 days of a vague nature. After reviewing the history of June 23 I suspect his episode was dehydration leading to hypotension / vertebral basilar insufficiency. He has been having some headaches intermittently other symptomatology that could be due to hypertension. His headaches are nonspecific , and not necessarily migrainous. The patient has significant carotid artery stenosis well as vertebral stenosis. Most recent CT angiography in March of this year did not show any specific surgical lesions and he is not showing evidence of emboli to the brain ( MRI was stable). He has moderate old small vessel ischemic disease as multiple risk factors for stroke including tobacco use, hypertension history (currently hypotension ), diabetes, and dyslipidemia markedly elevated triglycerides. He was also a heavy alcohol user in the past although for the last 4 months he has stopped use. He has restless leg syndrome fairly well controlled on Requip . Patient has a history of significant depression which is fairly well controlled on medication, but I suspect he has too much medication that is probably giving him side effects. I do not like the combination of a tricyclic such as doxepin with an SSRI such as citalopram as it could lead to serotonin syndrome. Recommendations: 1. Continue topiramate at 50 milligrams twice daily. In 2 weeks we could increase this to 100 milligrams twice daily, titrating from there as needed to help control seizures and headaches. It is also a mood stabilizer. 2. Keep Keppra to 250 milligrams twice daily for 1 month then discontinue. This could be completed as an outpatient. 3. Continue 81 milligram aspirin tablet daily. I have no reason to add clopidogrel at this time. I do not believe he has had another TIA . 4. keep off doxepin. Continue with citalopram. Try to find another way for sleep, if needed. 5. I do not believe the patient needs repeat CT angiography at this time , however, that could be done later in the fall as an outpatient. 6. increase activity as able. 7. Keep hydrated with fluids controlling hypotension as best as possible. 8. Follow up with Dr. Hooks as an outpatient. Overall I spent a total of 25minutes with this case including review of records, direct evaluation the patient bedside, and discussion of the case with the patient at bedside and Dr. Fields, including differential diagnosis and treatment options. Admission and Anticipated Discharge Date Admission Date: June 28, 2020 Subjective the patient feels a little bit better today. His headache is down to a 3 or 4/10. He is not dizzy or confused. He has no symptoms in his limbs. Blood pressure is 123/65. Pulse is in the 50s. CBC, Chem profile, and Lyme antibody titers were unremarkable. Patient had a panic attack last evening lasting an hour and a half. He had no chest pain and some dizziness. Ativan 1 milligram IV helped. Results & Data ([facility]) Vital Signs (Past 12 Hours) Vital Signs Temp Pulse Pulse Resp BP BP Pulse Ox 06/30/20 07:10 54 L 06/30/20 07:04 36.5 C 56 L 18 123/65 95 06/30/20 03:24 36.5 C 56 L 20 123/74 95 06/30/20 01:43 54 L 06/29/20 23:38 36.4 C L 55 L 20 125/74 94 Exam (Neuro) Physical Exam: He is awake and alert. Speech is without aphasia or dysarthria. Mood seems reasonable affect is mildly flat this morning. Thought processes are intact and he answers questions reasonably quickly. Extraocular eye muscles are intact without nystagmus. There is no facial droop or asymmetry. Strength seems symmetrical in the limbs. Reflexes 2/4 in the biceps, triceps, brachioradialis, quadriceps tendons bilaterally. Achilles tendon reflexes are absent bilaterally and toes are downgoing to plantar stimulation bilaterally. PG Care Time/CCT Total # of Minutes Spent Total Time Spent with Patient: Total time spent is greater than 50% in coordination of care (as documented) at patient's floor/unit and/or counseling patient: Coding Level of Care Code 74098 Subseq Hosp Care Lvl 2 Diagnoses Stroke-like symptoms R29.90 Seizure disorder G40.909 Carotid artery stenosis I65.29 History of subdural hematoma Z86.79 Headache R51 Major depression, recurrent F33.9 Time Spent (min) 25
[2020-06-30] MEDS ORDERED: ASPIRIN 81 MG ECTAB PO SCH (09:00)
[2020-06-30] MEDS ORDERED: STROKE PATIENT DISCHARGE STA (10:55)
[2020-06-30 11:00] VITALS: BP 123/74
--- NOTE | 2020-06-30 16:47 | Discharge Summary ---
Date of Service June 30, 2020 Admission HPI Per Admitting Provider Patient is a 60-year-old male transferred from [facility] where he presented to the ER via 911 from his physician's office after he had some transient visual loss. This was preceded by some expressive aphasia when at home. Reportedly by verbal report CT angiogram and showed some progression of his previously known carotid artery disease. Patient was discharged from our facility March 26, 2020 after suspected TIA. During that work-up CT and MRI of the brain were negative for stroke right cavernous carotid stenosis was seen echocardiogram was performed without evidence of PFO or intracardiac thrombotic sources patient had a statin increased on discharge. The other health problems include newly diagnosed diabetes, epilepsy and restless leg syndrome distant history of subdural hematoma and prostate adenocarcinoma status post seed implantation. He he is also previously been inpatient psychiatric treatment for major depression Principal Diagnosis stoke like symptoms suspect medication interaction Discharge Exam The patient appeared well Vital signs as documented. Lungs are clear to auscultation and appear unlabored Cardiac exam, Rhythm is regular.. No murmurs, rubs or gallops. Abdominal exam reveals normal bowel sounds, soft non tender, no masses Extremities are nonedematous and both pedal pulses are normal. Neurologic exam is alert and oriented, no focal loss of strength or sensation Skin is without bruises or rashes Psychologically is with concerns for anxiety Discharge Data Allergies Allergy/AdvReac Type Severity Reaction Status Date / Time bee venom protein (honey bee) Allergy Severe ANAPHYLAXIS Verified 03/25/20 19:00 cat dander Allergy Intermediate Itchy/Watery Verified 03/25/20 19:00 Eyes, Itchy throat tamsulosin Allergy Intermediate Hives Verified 03/25/20 19:00 Consultations 06/28/20 16:13 Consult Case Management - Discharge Planning Routine 06/28/20 16:14 Consult Case Management - Discharge Planning Routine Consult Neurology Routine Ordered Studies 06/28/20 16:09 MR brain wo con Routine 06/28/20 16:15 US carotid doppler BI Routine Hospital Course (1) Stroke-like symptoms: Patient presented with strokelike symptoms he was not a candidate for thrombolytic therapy. Neurology evaluation of 06/29 does not feel this was a stroke or TIA but feels it was likley related to lower blood pressure and vertebrobasilar instability He will continue on antiplatelet agents, high-dose statin statin and controlling secondary risk factors. MRI was negative for stroke carotid ultrasound shows no hemodynamically significant lesion Upon presentation the patient was on BuSpar, citalopram, Keppra, Topamax, clonidine, BuSpar, Seroquel, doxepin, Requip and hydroxyzine. He was having lower blood pressures is felt that his symptoms and blood pressures related to the combination of these many medications at time of discharge neurology recommended reducing Keppra and increasing Topamax, we will eliminate clonidine, increase BuSpar for anxiety, reduced dose of Seroquel, limited doxepin, reduced dose of Requip, and limited hydroxyzine Patient's home medication list that lists both rosuvastatin and atorvastatin and fenofibrate. Will hold the rosuvastatin at this point time and continuing the atorvastatin/ fenofibrate (2) Carotid artery stenosis: no hemodynamically significant lesion and no defined evidence of stroke. (3) Seizure disorder: Neurology recommends to reduce Keppra to 250 mg twice daily plus increase Topamax to 50 mg twice daily Plans will be in 1 month to DC Keppra altogether and then if need be increase Topamax to 100 twice daily patient follow-up Dr. Hooks in 2 weeks (4) Hypertension: Patient has been hypotensive since admission he will be given additional fluids on the and no antihypertensive medicines will be ordered clonidine was stopped because of this (5) Prostate cancer: (6) Major depression, recurrent: Patient is typically on citalopram 40, BuSpar was reduced to 10 mg twice daily hydroxyzine clonidine and doxepin were stopped and Seroquel was reduced to 50 mg at bedtime plus melatonin continues. Patient is concerned about anxiety however polypharmacy is likely a bigger danger to his health and anxiety at this point patient will employ lifestyle modification at home to try to help his anxiety (7) Diabetes: His type 2 diabetes typically controlled with metformin patient is on sliding scale insulin while here last hemoglobin A1c was 6.2 (8) High triglycerides: Patient is fasting triglycerides were 742. He will be continued on his fenofibrate Total Time Total Time Spent Total Time Spent (In Minutes): It required greater than 30 minutes to prepare this patient for discharge Discharge Plan Discharge Items Patient Disposition: Home - Self-Care Reason For Visit: TIA Discharge Diagnosis: stroke like symptoms medication interaction Activity: Resume your previous activity Non-emergency contact: Primary Care Provider and Specialist Call non-emergency contact if: you have any medication questions and your symptoms worsen Follow-up/Referrals: Jose Hooks MD [Physician] - 07/22/20 10:00 am (We have moved your appt with Dr Hooks, to SaturdayJul 22 at 10. Please arrive 15 minutes prior to your appt time. [address] [facility] [phone]) Matheus Riojas [Primary Care Provider] - Diet: Regular Addtl Attending Provider Instructions: Please consider to try to stick tothe medication changes Dr Walker and Neva have suggested, please discuss additional strategies to help with your anxiety when you see [facility] next week 07/06/20 at 0140 pm Pending Studies at Discharge: No Stand-Alone Forms: My [facility], Smoking Cessation Medications and DC Order Prescriptions: Continued citalopram 40 mg tablet 40 mg PO DAILY RF: 0 melatonin 5 mg capsule 5 mg PO HS RF: 0 pantoprazole 40 mg Tablet,Delayed Release (Dr/Ec) 40 mg PO QAM RF: 0 epinephrine [EpiPen] 0.3 mg/0.3 mL Auto-Injector 0.3 mg IM DIRECTED PRN (Reason: Allergic Reaction) RF: 0 fenofibrate nanocrystallized 145 mg tablet 145 mg PO HS RF: 0 atorvastatin 80 mg tablet 80 mg PO HS Qty: 30 RF: 0 aspirin 81 mg Tablet,Delayed Release (Dr/Ec) 81 mg PO QAM Qty: 30 RF: 0 metformin 500 mg tablet 500 mg PO BID Qty: 60 RF: 0 Changed buspirone 5 mg tablet 10 mg PO BID Qty: 0 RF: 0 levetiracetam 500 mg tablet 250 mg PO BID 30 Days Qty: 60 RF: 4 topiramate 25 mg tablet 50 mg PO BID Qty: 60 RF: 2 quetiapine 100 mg tablet 50 mg PO HS Qty: 0 RF: 0 ropinirole 2 mg tablet 1 mg PO HS 90 Days Qty: 45 RF: 0 Discontinued propranolol 40 mg tablet 40 mg PO BID RF: 0 clonidine HCl 0.1 mg tablet 0.1 mg PO DAILY RF: 0 hydroxyzine pamoate 50 mg capsule 50 mg PO DAILY PRN (Reason: Anxiety) RF: 0 doxepin 100 mg capsule 100 mg PO HS RF: 0 Discharge Orders: Discharge Order (Routine); Ordered 06/30/20 Ordered By: Garrick Hart/Other Patient Handouts: High Blood Sugar (Hyperglycemia), Hypoglycemia (Low Blood Sugar), Managing Type 2 Diabetes, Managing Diabetes: The A1C Test, Diabetes: Meal Planning Admission Data Admit Date/Time: 06/28/20 15:37 Attending Provider: Garrick Fields Admit Provider: Ketan Lopez Primary Care Provider: Matheus Riojas Other Providers: Terrell Walker Other Interventions: Discharge Summary Assessment (RN) Last Done: 06/30/20 10:58 Coding Level of Care Code D/C Day Management >30 mins Diagnoses Stroke-like symptoms R29.90 Carotid artery stenosis I65.29 Seizure disorder G40.909 Hypertension I10 Hypertension type: essential hypertension Prostate cancer C61 Major depression, recurrent F33.9 Diabetes E11.9 High triglycerides E78.1
== END 2020-06-30 12:34 | disposition home or self-care (01) ==
LOC: 2W → SUATTDRO 15:37

== ENCOUNTER 2021-03-08 18:37 | Inpatient (IN) ==
[2021-03-08 19:24] LABS: Basophils # (auto) 0.02 K/uL (0-0.2); Basophils % (auto) 0.4 %; Eosinophils # (auto) 0.14 K/uL (0-0.5); Eosinophils % (auto) 3.1 %; Hematocrit (blood only) 36.5 % (42-52); Immature Granulocytes # (auto) 0.02 K/uL (0.00-0.02); Immature Granulocytes % (auto) 0.4 %; Lymphocytes # (auto) 1.27 K/uL (1.2-3.4); Lymphocytes % (auto) 27.9 %; Mean Corpuscular Hgb Conc 35.6 g/dL (32-36); Mean Corpuscular Volume 92.6 fL (80-100); Mean Platelet Volume 9.5 fL (7.4-10.4); Monocytes # (auto) 0.45 K/uL (0.11-0.59); Monocytes % (auto) 9.9 %; Neutrophils # (auto) 2.66 K/uL (1.4-6.5); Neutrophils % (auto) 58.3 %; Platelet Count 160 K/uL (130-400); RDW Coefficient of Variation 13.9 % (11.5-14.5); RDW Standard Deviation 46.9 fL (36.4-46.3); Red Blood Count 3.94 M/uL (4.7-6.1); White Blood Count 4.56 K/uL (4.8-10.8)
[2021-03-08] MEDS ORDERED: MULTI-VITAMIN INFUSION 10 ML, THIAMINE HCL 100 MG, FOLIC ACID 1 MG in SODIUM CHLORIDE 0... IV ONE (19:24)
[2021-03-08] MEDS ORDERED: THIAMINE HCL 200 MG in SODIUM CHLORIDE 0.9% 50 ML IV STA (19:24)
[2021-03-08] MEDS ORDERED: SODIUM CHLORIDE 0.9% 1,000 ML IV ONE (19:28)
[2021-03-08 19:32] LABS: Alanine Aminotransferase 70 U/L (12-78); Albumin Level 3.4 gm/dl (3.4-5.0); Aspartate Aminotransferase 179 U/L (15-37); BUN Creatinine Ratio 13.3 (10-20); Bilirubin Direct 0.2 mg/dl (0-0.2); Blood Urea Nitrogen 11 mg/dl (7-18); Calcium 8.2 mg/dl (8.5-10.1); Carbon Dioxide 27 mmol/L (21-32); Chloride 101 mmol/L (98-107); Est GFR (African American) 109.3 ml/min; Est GFR (Non-African American) 94.3 ml/min; Glucose 101 mg/dl (70-99); Lipase 339 U/L (73-393); Magnesium 1.6 mg/dl (1.8-2.4); Potassium 3.2 mmol/L (3.5-5.1); Sodium 137 mmol/L (136-145)
[2021-03-08 19:41] LABS: Albumin Globulin Ratio 0.9 (0.9-2); Alkaline Phosphatase 76 U/L (45-117); Bilirubin,Total 0.4 mg/dl (0.2-1); Creatine Kinase 217 U/L (39-308); Globulin 3.9 gm/dl (2.5-4.0); Phosphorus 2.5 mg/dl (2.5-4.9); Total Protein 7.3 gm/dl (6.4-8.2); Troponin I < 0.015 ng/ml (0-0.045)
[2021-03-08 19:42] LABS: Partial Thromboplastin Ratio 0.9; Partial Thromboplastin Time 24.8 Seconds (21.0-31.0); Prothrombin Time 10.3 Seconds (9.0-12.0)
--- NOTE | 2021-03-08 19:44 | CT Scan Report ---
CT OF THE HEAD WITHOUT CONTRAST CLINICAL HISTORY: ams, pain fall COMPARISON STUDY: Head CT and CTA of the head March 25, 2020. MRI of the brain June 28, 2020. CT DOSE: 1404.82 mGy.cm TECHNIQUE: Helical axial images of the head were obtained without IV contrast. Automated exposure con trol was utilized for the study. A dose lowering technique was utilized adhering to the principles o f ALARA. FINDINGS: No acute intracranial hemorrhage, midline shift or mass effect is present. The ventricular system is unremarkable. The basal cisterns are patent. No extra-axial collections are present. There are no findings to suggest acute dural sinus thrombosis or acute territorial infarct. No significant calvarial abnormalities are present. Mucous retention cysts are incidentally noted within the maxilla ry sinuses. IMPRESSION: No acute intracranial findings. ACT 112: Negative or not required by law. Electronically signed by: Lucius Sweeney M.D. 03/08/2021 7:43 PM
--- NOTE | 2021-03-08 19:48 | CT Scan Report ---
CT OF THE CERVICAL SPINE WITHOUT CONTRAST CLINICAL HISTORY: ams, pain fall COMPARISON STUDY: CT of the cervical spine September 13, 2018. TECHNIQUE: Helical axial images of the cervical spine were obtained without IV contrast. Sagittal a nd coronal reconstructions were viewed. Automated exposure control was utilized for the study. A do se lowering technique was utilized adhering to the principles of ALARA. FINDINGS: Alignment of the cervical spine is anatomic. Vertebral body heights are maintained. No acut e cervical spine fracture or subluxation is present. There is no prevertebral edema. Facet joints are intact. IMPRESSION: No acute cervical spine fracture or subluxation. ACT 112: Negative or not required by law. Electronically signed by: Lucius Sweeney M.D. 03/08/2021 7:47 PM
--- NOTE | 2021-03-08 20:05 | XRay Report ---
XR chest 1V portable CLINICAL HISTORY: Chest Pain COMPARISON STUDY: Chest radiograph July 27, 2019. FINDINGS: Lung volumes are at the lower limits of normal. Lungs are clear. There is no pneumothorax o r pleural effusion. Cardiac size is normal. Mediastinal contours are normal. There is no evidence for pulmonary edema. IMPRESSION: No acute cardiopulmonary findings. ACT 112: Negative or not required by law. Electronically signed by: Lucius Sweeney M.D. 03/08/2021 8:04 PM
[2021-03-08] MEDS ORDERED: LORazepam 1 MG/2 ML VIAL IV STA (20:12)
[2021-03-08 20:28] LABS: Appearance Urine Clear (Clear); Bacteria Urine Automated Negative (Negative); Bilirubin Urine Negative (Negative); Blood Urine 2+ (Negative); Color Urine Yellow; Epithelial Cell Urine Auto >30 /lpf (0-5); Glucose Urine UA 3+ (Negative); Ketones Urine Negative (Negative); Leukocyte Esterase Urine Negative (Negative); Nitrite Urine Negative (Negative); Protein Urine Negative (Negative); RBC Urine Automated >30 /hpf (0-4); Specific Gravity Urine 1.016 (1.000-1.030); Urobilinogen Urine Negative (Negative)
[2021-03-08] MEDS: POTASSIUM CHLORIDE / WTR 10 MEQ/100 ML PLCT IV SCH ×2 (20:29→21:23)
[2021-03-08] MEDS ORDERED: LORazepam 2 MG/4 ML VIAL IV STA (21:00)
[2021-03-08] MEDS ORDERED: DIPHTHERIA/TETANUS/PERTUSSIS Vaccine (Tdap, Age 7+yrs) 0.5mL SYR/VL IM ONE (21:03)
[2021-03-08] MEDS ORDERED: XYLOCAINE 1%/SOD BICARB 20 ML VIAL INFIL ONE (21:04)
--- NOTE | 2021-03-08 21:13 | Emergency Department Note ---
Impression & Plan Alcohol withdrawal delirium, Unwitnessed fall, Laceration of tragus of right ear, Hypomagnesemia, Hypokalemia ED Provider Note NAME: FRED HOGAN AGE: 60 SEX: M ARRIVES VIA: Walk-In INFORMANT: Patient, ED PROVIDER(S): Mahesh Lyn MD CHIEF COMPLAINT: Fall, AMS, etoh. PLAN: Disposition: Admit MEDICAL DECISION MAKING: The patient is a 60-year-old gentleman with a past medical history of alcohol dependence, alcohol withdrawal, prior history of subdural hematoma who presents to the emergency department coming by his with concern for acute altered mental status that occurred around 6 PM tonight in the setting of the 's report that she came home from work around 4pm and she felt he was acting normally but found that he was bleeding from his right ear and the patient had reported that he had fallen earlier this morning. The patient's reports that he did go through alcohol detox over a month ago but did start drinking again. She reports that when he gets intoxicated he usually is not this confused or has trouble speaking. Denies recent fevers, chills, cough, congestion, n/v/d, urinary sx, or known Covid-19 exposures. On arrival the patient is spontaneously awake but staring blankly mostly but loi l direct his gaze during conversation but with paucity of words saying his name was "jami". He is afebrile with stable vital signs. He appears clinically dry. Slow bloody ooze coming from the right ear tragus partial avulsion/laceration. He is moving all extremities equally without focal weakness. EKG without overt acute ischemia. CXR negative for acute cardiopulmonary process . CT of the head and C-spine were negative for acute traumatic findings. WBC 4.5, nonspecific. H/H 13/36.5 proximal to prior values. Platelets within normal limits. Magnesium 1.6 and potassium 3.2 with repletion provided. Chemistry without metabolic acidosis. AST 179 consistent with the patient's alcoholism. Troponin neck/undetectable. TSH within normal limits. UA without convincing evidence of infection. Covid-19 PCR negative. Blood alcohol was 195. Given the patient's alcoholism and having had prior more elevated blood alcohol levels suspect patient's symptoms are related to alcohol withdrawal delir ium/delirium tremens. He was treated with IV fluid hydration, banana bag, and additional thiamine and IV Ativan. The patient was requesting to leave however he was unable to explain in any sufficient detail his current condition and concerns for his wellbeing and so at this time does not have capacity. The patient's at the bedside is supportive of the patient being admitted for further management. Case was discussed with Dr. Santos, [facility] hospitalist, who will evaluate the patient for admission. Laceration was successfully repaired per procedure note. Hemostasis achieved. Likely will need sutures in place for at least 10 days and daily monitoring for hematoma development. Triage Nursing notes reviewed and agree them. Prior medical records reviewed Vital Signs: reviewed and remarkable for no significant abnormalities Differential diagnosis: Infection, dehydration, metabolic abnormality, hypo/hyperglycemia, electrolyte disturbance, anemia, hypoxia, cardiac sources, intracerebral event, toxicologic, neurologic, as well as other pathologies. ER treatment provided: See below. Diagnostics interpreted by me: ECG: NSR, 76 bpm, no ectopy, no overt ST elevation or depression. QTC 465, QRS 94. Cardiac Monitoring: An order for continuous cardiac monitoring was placed and demonstrated NSR, 76 bpm, no ectopy. Laboratory studies: See below Imaging studies: See below Consultation(s): Case was discussed with Dr. Santos, [facility] hospital[facility], who will evaluate the patient for admission. HPI: The patient is a 60-year-old gentleman with a past medical history of alcohol dependence, alcohol withdrawal, prior history of subdural hematoma who presents to the emergency department coming by his with concern for acute altered mental status that occurred around 6 PM tonight in the setting of the 's report that she came home from work around 4pm and she felt he was acting normally but found that he was bleeding from his right ear and the patient had reported that he had fallen earlier this morning. The patient's reports that he did go through alcohol detox over a month ago but did start drinking again. She reports that when he gets intoxicated he usually is not this confused or has trouble speaking. Denies recent fevers, chills, cough, congestion, n/v/d, urinary sx, or known Covid-19 exposures. ROS: See above HPI for pertinent positives & negatives. A total of 10 systems reviewed and were otherwise negative. PAST MEDICAL HISTORY:See Below PAST SURGICAL HISTORY:See Below FAMILY HISTORY:See Below SOCIAL HISTORY:See Below HOME MEDICATIONS:See Below ALLERGIES:See Below VITALS:See Below PHYSICAL EXAMINATION: GENERAL: Awake, alert, drowsy/confused-appearing, in no distress HENT: Normocephalic. Right ear V-shaped laceration involving partial avulsion of tragus extending to antitragus, approaching but not involving EAC. Oropharynx with dry mucous membranes and otherwise unremarkable. EYES: Normal conjunctiva. Sclera non-icteric. EOMI. No nystamgus. PEARRL. NECK: Supple. No nuchal rigidity. FROM. No JVD. RESPIRATORY: Clear to auscultation. CARDIAC: Regular rate, normal rhythm. Extremities warm and well perfused. Pulses equal. ABDOMEN: Soft, non-distended. No tenderness to palpation. No rebound or guarding. No masses. RECTAL: Deferred. MUSCULOSKELETAL: Chest examination reveals no tenderness. The back is symmetrical on inspection without obvious abnormality. There is no CVA tenderness to palpation. No joint edema. LOWER EXTREMITIES: Calves are equal size bilaterally and non-tender. No edema. No discoloration. NEURO: Spontaneously alert, Drowsy, slurred speech, paucity of speech. No focal sensory or motor deficits noted. SKIN: No rash or jaundice noted. ED COURSE: Procedures: Location: Right ear split,V-shaped laceration involving partial avulsion of tragus extending to antitragus approaching but not involving EAC. Total length: 2.0cm Complexity: Complex Verbal consent was obtained after the risks and benefits were explained, including but not limited to bleeding, scarring, infection, pain, and bone/joint/nerve damage. At this time, the risks of the procedure are less than the risks of NOT performing the procedure. A time out was taken and the correct patient and site identified. The skin was prepped with betadine. The target area was anesthetized with 3 ml of 1% lidocaine without epinephrine. Copious irrigation was performed using sterile saline. The skin was re-prepped with betadine and a sterile field set. The wound was explored for foreign bodies and none found. Examination revealed no injury to deep structures. Debridement and undermining of avulsion to aide in approximation performed. The wound edges were approximated using five, 5-0 simple interrupted nylon sutures. Hemostasis and excellent approximation was achieved. Sterile dressing with temporary nasal clamp to prevent hematoma formation applied. Detailed wound care instructions and signs and symptoms of infection reviewed with the patient. No complications and the patient tolerated the procedure well. Critical Care: I have personally spent greater than 45 minutes of critical care time in the direct management of this patient. This includes bedside care, interpretation of diagnostic studies, and testing, discussion with consultants, patient, and family members, and other required patient management activities. This 45 minutes is in excess of all separately billable procedures. Mahesh Lyn MD Past Med/Surg History Medical History Alcohol abuse Anxiety Depression Diverticulosis Headache Hyperlipidemia Hypertension Left arm weakness Panic attacks Prostate cancer (07/30/16) Suicidal behavior Suicidal ideation attempt to buy gun, was not able to buy one. TIA (transient ischemic attack) Surgical History History of cholecystectomy History of repair of ACL Family History Father , Mother age 56 of colon cancer Colorectal cancer Mother , the age 78 of a blood clot Dementia Clotting disorder Other Cancer Social History Smoking Status: Current every day smoker Tobacco Type: Cigars Cigarettes Per Day: 1 cigar per day. Quit cigarettes 30 years ago; Hx Alcohol Use: Yes ( no alcohol for 4 months. 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 [employer] Feels Safe at Home: Yes Assistive Devices: None Allergies Allergies Allergy/AdvReac Type Severity Reaction Status Date / Time bee venom protein (honey bee) Allergy Severe ANAPHYLAXIS Verified 03/08/21 19:46 cat dander Allergy Intermediate Itchy/Watery Verified 03/08/21 19:46 Eyes, Itchy throat tamsulosin Allergy Intermediate Hives Verified 03/08/21 19:46 Home Meds Home Medications Medication Instructions Recorded Confirmed epinephrine [EpiPen] 0.3 mg IM DIRECTED PRN 03/21/19 03/08/21 pantoprazole 40 mg PO QAM 03/21/19 03/08/21 citalopram 40 mg tablet 40 mg PO DAILY tab 11/11/19 03/08/21 melatonin 5 mg capsule 5 mg PO HS 11/11/19 03/08/21 fenofibrate nanocrystallized 145 mg PO HS 03/15/20 03/08/21 buspirone 30 mg PO BID PRN 03/08/21 03/08/21 empagliflozin [Jardiance] 10 mg PO DAILY 03/08/21 03/08/21 metformin 1,000 mg PO BID 03/08/21 03/08/21 mirtazapine 22.5 mg PO HS 03/08/21 03/08/21 olmesartan 5 mg PO DAILY 03/08/21 03/08/21 rosuvastatin 10 mg PO DAILY 03/08/21 03/08/21 Previous Rx's Medication Instructions Recorded aspirin 81 mg PO QAM #30 tab 03/26/20 atorvastatin 80 mg PO HS #30 tab 03/26/20 topiramate 50 mg tablet 50 mg PO BID #180 tab 10/19/20 ropinirole 0.5 mg tablet 0.5 mg PO HS 90 Days #90 tab 10/24/20 Results & Data (ED) Vital Signs Vital Signs - 24 hr 03/08/21 18:55 03/08/21 19:00 03/08/21 19:24 Temperature Temperature Source Pulse Rate 75 75 Pulse Rate from SpO2 Sensor 75 Respiratory Rate 17 Blood Pressure 112/68 107/68 Blood Pressure Mean 82 81 Pulse Oximetry 93 93 Oxygen Delivery Method Room Air Room Air 03/08/21 19:30 03/08/21 19:45 03/08/21 19:46 Temperature Temperature Source Pulse Rate 72 74 73 Pulse Rate from SpO2 Sensor 72 74 73 Respiratory Rate 14 15 20 Blood Pressure 96/75 L 145/87 H Blood Pressure Mean 82 106 Pulse Oximetry 95 99 99 Oxygen Delivery Method Room Air Room Air 03/08/21 20:02 03/08/21 20:16 03/08/21 20:30 Temperature Temperature Source Pulse Rate 77 77 77 Pulse Rate from SpO2 Sensor 76 77 77 Respiratory Rate 15 15 18 Blood Pressure 108/54 L 92/59 L 112/71 Blood Pressure Mean 72 70 84 Pulse Oximetry 97 97 91 Oxygen Delivery Method Room Air Room Air Room Air 03/08/21 20:45 03/08/21 21:00 03/08/21 21:15 Temperature Temperature Source Pulse Rate 75 76 77 Pulse Rate from SpO2 Sensor 75 76 77 Respiratory Rate 17 21 14 Blood Pressure 113/77 121/84 112/84 Blood Pressure Mean 89 96 93 Pulse Oximetry 92 97 94 Oxygen Delivery Method Room Air Room Air Room Air 03/08/21 21:23 03/08/21 21:30 03/08/21 21:45 Temperature 36.9 C Temperature Source Oral Pulse Rate 80 79 Pulse Rate from SpO2 Sensor 80 80 Respiratory Rate 16 24 Blood Pressure 127/81 120/77 Blood Pressure Mean 96 91 Pulse Oximetry 93 94 Oxygen Delivery Method Room Air Room Air Laboratory Data Attestation: I reviewed the patient's lab results. Result diagrams: 03/08/21 23:36 03/08/21 23:36 Lab Results 03/08/21 03/08/21 03/08/21 Range/Units 19:00 19:00 19:00 WBC 4.56 L (4.8-10.8) K/uL RBC 3.94 L (4.7-6.1) M/uL Hgb 13.0 L (14.0-18.0) g/dL Hct 36.5 L (42-52) % MCV 92.6 (80-100) fL MCH 33.0 (25-34) pg MCHC 35.6 (32-36) g/dL RDW Std Deviation 46.9 H (36.4-46.3) fL RDW Coeff of Antonio 13.9 (11.5-14.5) % Plt Count 160 (130-400) K/uL MPV 9.5 (7.4-10.4) fL Immature Gran % (Auto) 0.4 % Neut % (Auto) 58.3 % Lymph % (Auto) 27.9 % [place] % (Auto) 9.9 % Eos % (Auto) 3.1 % Baso % (Auto) 0.4 % Neut # (Auto) 2.66 (1.4-6.5) K/uL Lymph # (Auto) 1.27 (1.2-3.4) K/uL [place] # (Auto) 0.45 (0.11-0.59) K/uL Eos # (Auto) 0.14 (0-0.5) K/uL Baso # (Auto) 0.02 (0-0.2) K/uL Immature Gran # (Auto) 0.02 (0.00-0.02) K/uL PT 10.3 (9.0-12.0) Seconds INR 1.0 (0.9-1.1) APTT 24.8 (21.0-31.0) Seconds PTT Ratio 0.9 Sodium 137 (136-145) mmol/L Potassium 3.2 L (3.5-5.1) mmol/L Chloride 101 (98-107) mmol/L Carbon Dioxide 27 (21-32) mmol/L Anion Gap 9.0 (3-11) BUN 11 (7-18) mg/dl Creatinine 0.83 (0.6-1.4) mg/dl Est Cr Clr Drug Dosing Not Reportable Est GFR ( Amer) 109.3 ml/min Est GFR (Non-Af Amer) 94.3 ml/min BUN/Creatinine Ratio 13.3 (10-20) Glucose 101 H (70-99) mg/dl Calcium 8.2 L (8.5-10.1) mg/dl Phosphorus 2.5 (2.5-4.9) mg/dl Magnesium 1.6 L (1.8-2.4) mg/dl Total Bilirubin 0.4 (0.2-1) mg/dl Direct Bilirubin 0.2 (0-0.2) mg/dl AST 179 H (15-37) U/L ALT 70 (12-78) U/L Alkaline Phosphatase 76 (45-117) U/L Total Creatine Kinase 217 (39-308) U/L Troponin I < 0.015 (0-0.045) ng/ml Total Protein 7.3 (6.4-8.2) gm/dl Albumin 3.4 (3.4-5.0) gm/dl Globulin 3.9 (2.5-4.0) gm/dl Albumin/Globulin Ratio 0.9 (0.9-2) Triglycerides (0-150) mg/dl Cholesterol (0-200) mg/dl LDL Cholesterol, Calc mg/dl VLDL Cholesterol, Calc mg/dl HDL Cholesterol mg/dl Cholesterol/HDL Ratio Lipase 339 (73-393) U/L TSH 2.160 (0.300-4.500) uIu/ml Urine Color Urine Appearance (Clear) Urine pH (4.5-7.5) Ur Specific [place] (1.000-1.030) Urine Protein (Negative) Urine Glucose (UA) (Negative) Urine Ketones (Negative) Urine Blood (Negative) Urine Nitrite (Negative) Urine Bilirubin (Negative) Urine Urobilinogen (Negative) Ur Leukocyte Esterase (Negative) Urine WBC (Auto) (0-5) /hpf Urine RBC (Auto) (0-4) /hpf U Hyaline Cast (Auto) (0-5) /lpf U Epithel Cells (Auto) (0-5) /lpf Urine Bacteria (Auto) (Negative) Ur Renal Epithelial Cell Ethyl Alcohol mg/dL (0-3) mg/dl COVID-19 Eval Order SARS-CoV-2 (PCR) (Negative) 03/08/21 03/08/21 03/08/21 Range/Units 19:00 19:30 20:10 WBC (4.8-10.8) K/uL RBC (4.7-6.1) M/uL Hgb (14.0-18.0) g/dL Hct (42-52) % MCV (80-100) fL MCH (25-34) pg MCHC (32-36) g/dL RDW Std Deviation (36.4-46.3) fL RDW Coeff of Antonio (11.5-14.5) % Plt Count (130-400) K/uL MPV (7.4-10.4) fL Immature Gran % (Auto) % Neut % (Auto) % Lymph % (Auto) % [place] % (Auto) % Eos % (Auto) % Baso % (Auto) % Neut # (Auto) (1.4-6.5) K/uL Lymph # (Auto) (1.2-3.4) K/uL [place] # (Auto) (0.11-0.59) K/uL Eos # (Auto) (0-0.5) K/uL Baso # (Auto) (0-0.2) K/uL Immature Gran # (Auto) (0.00-0.02) K/uL PT (9.0-12.0) Seconds INR (0.9-1.1) APTT (21.0-31.0) Seconds PTT Ratio Sodium (136-145) mmol/L Potassium (3.5-5.1) mmol/L Chloride (98-107) mmol/L Carbon Dioxide (21-32) mmol/L Anion Gap (3-11) BUN (7-18) mg/dl Creatinine (0.6-1.4) mg/dl Est Cr Clr Drug Dosing Est GFR ( Amer) ml/min Est GFR (Non-Af Amer) ml/min BUN/Creatinine Ratio (10-20) Glucose (70-99) mg/dl Calcium (8.5-10.1) mg/dl Phosphorus (2.5-4.9) mg/dl Magnesium (1.8-2.4) mg/dl Total Bilirubin (0.2-1) mg/dl Direct Bilirubin (0-0.2) mg/dl AST (15-37) U/L ALT (12-78) U/L Alkaline Phosphatase (45-117) U/L Total Creatine Kinase (39-308) U/L Troponin I (0-0.045) ng/ml Total Protein (6.4-8.2) gm/dl Albumin (3.4-5.0) gm/dl Globulin (2.5-4.0) gm/dl Albumin/Globulin Ratio (0.9-2) Triglycerides 199 H (0-150) mg/dl Cholesterol 129 (0-200) mg/dl LDL Cholesterol, Calc 35 mg/dl VLDL Cholesterol, Calc 40 mg/dl HDL Cholesterol 54 mg/dl Cholesterol/HDL Ratio 2 Lipase (73-393) U/L TSH (0.300-4.500) uIu/ml Urine Color Urine Appearance (Clear) Urine pH (4.5-7.5) Ur Specific [place] (1.000-1.030) Urine Protein (Negative) Urine Glucose (UA) (Negative) Urine Ketones (Negative) Urine Blood (Negative) Urine Nitrite (Negative) Urine Bilirubin (Negative) Urine Urobilinogen (Negative) Ur Leukocyte Esterase (Negative) Urine WBC (Auto) (0-5) /hpf Urine RBC (Auto) (0-4) /hpf U Hyaline Cast (Auto) (0-5) /lpf U Epithel Cells (Auto) (0-5) /lpf Urine Bacteria (Auto) (Negative) Ur Renal Epithelial Cell Ethyl Alcohol mg/dL 195.0 H (0-3) mg/dl COVID-19 Eval Order Covid19 at [facility] SARS-CoV-2 (PCR) (Negative) 03/08/21 03/08/21 Range/Units 20:10 20:10 WBC (4.8-10.8) K/uL RBC (4.7-6.1) M/uL Hgb (14.0-18.0) g/dL Hct (42-52) % MCV (80-100) fL MCH (25-34) pg MCHC (32-36) g/dL RDW Std Deviation (36.4-46.3) fL RDW Coeff of Antonio (11.5-14.5) % Plt Count (130-400) K/uL MPV (7.4-10.4) fL Immature Gran % (Auto) % Neut % (Auto) % Lymph % (Auto) % [place] % (Auto) % Eos % (Auto) % Baso % (Auto) % Neut # (Auto) (1.4-6.5) K/uL Lymph # (Auto) (1.2-3.4) K/uL [place] # (Auto) (0.11-0.59) K/uL Eos # (Auto) (0-0.5) K/uL Baso # (Auto) (0-0.2) K/uL Immature Gran # (Auto) (0.00-0.02) K/uL PT (9.0-12.0) Seconds INR (0.9-1.1) APTT (21.0-31.0) Seconds PTT Ratio Sodium (136-145) mmol/L Potassium (3.5-5.1) mmol/L Chloride (98-107) mmol/L Carbon Dioxide (21-32) mmol/L Anion Gap (3-11) BUN (7-18) mg/dl Creatinine (0.6-1.4) mg/dl Est Cr Clr Drug Dosing Est GFR ( Amer) ml/min Est GFR (Non-Af Amer) ml/min BUN/Creatinine Ratio (10-20) Glucose (70-99) mg/dl Calcium (8.5-10.1) mg/dl Phosphorus (2.5-4.9) mg/dl Magnesium (1.8-2.4) mg/dl Total Bilirubin (0.2-1) mg/dl Direct Bilirubin (0-0.2) mg/dl AST (15-37) U/L ALT (12-78) U/L Alkaline Phosphatase (45-117) U/L Total Creatine Kinase (39-308) U/L Troponin I (0-0.045) ng/ml Total Protein (6.4-8.2) gm/dl Albumin (3.4-5.0) gm/dl Globulin (2.5-4.0) gm/dl Albumin/Globulin Ratio (0.9-2) Triglycerides (0-150) mg/dl Cholesterol (0-200) mg/dl LDL Cholesterol, Calc mg/dl VLDL Cholesterol, Calc mg/dl HDL Cholesterol mg/dl Cholesterol/HDL Ratio Lipase (73-393) U/L TSH (0.300-4.500) uIu/ml Urine Color Yellow Urine Appearance Clear (Clear) Urine pH 7.0 (4.5-7.5) Ur Specific [place] 1.016 (1.000-1.030) Urine Protein Negative (Negative) Urine Glucose (UA) 3+ H (Negative) Urine Ketones Negative (Negative) Urine Blood 2+ H (Negative) Urine Nitrite Negative (Negative) Urine Bilirubin Negative (Negative) Urine Urobilinogen Negative (Negative) Ur Leukocyte Esterase Negative (Negative) Urine WBC (Auto) 1-5 (0-5) /hpf Urine RBC (Auto) >30 H (0-4) /hpf U Hyaline Cast (Auto) 1-5 (0-5) /lpf U Epithel Cells (Auto) >30 H (0-5) /lpf Urine Bacteria (Auto) Negative (Negative) Ur Renal Epithelial Cell Not Reportable Ethyl Alcohol mg/dL (0-3) mg/dl COVID-19 Eval Order SARS-CoV-2 (PCR) NEGATIVE (Negative) Administered Medications Acetaminophen (Acetaminophen 325 Mg Tab) 650 mg PO Q4H PRN PRN Reason: Pain or Fever Stop: 04/07/21 23:54 Last Admin: 03/09/21 01:27 Dose: 650 mg Documented by: [id number] Sodium Chloride (Nss 1000ml) 1,000 mls @ 125 mls/hr IV .Q8H LESLEE Stop: 03/09/21 23:25 Last Admin: 03/09/21 02:07 Dose: 125 mls/hr Documented by: [id number] Thiamine HCl 100 mg/ Syringe 10 mls @ 2 mls/min IV QAM LESLEE Stop: 04/07/21 23:25 Last Admin: 03/09/21 02:07 Dose: 2 mls/min Documented by: [id number] Folic Acid 1 mg/ Syringe 10 mls @ 5 mls/min IV QAM LESLEE Stop: 04/07/21 23:25 Last Admin: 03/09/21 02:07 Dose: 5 mls/min Documented by: [id number] Melatonin (Melatonin 3 Mg Tab) 4.5 mg PO HS LESLEE Stop: 04/07/21 23:29 Last Admin: 03/09/21 02:47 Dose: Not Given Documented by: [id number] Discontinued Medications Albuterol (Albut/Ipratrop 3mg/0.5mg Neb 3 Ml Vial) 3 ml NEB NOW STA Stop: 03/08/21 23:40 Last Admin: 03/09/21 00:31 Dose: 3 ml Documented by: [id number] Diazepam (Diazepam 5 Mg/Ml Inj 10ml Vial) 20 mg IV NOW STA Stop: 03/08/21 23:55 Last Admin: 03/09/21 02:51 Dose: Not Given Documented by: [id number] Diphtheria/Pertussis/Tetanus Vacc (Diphtheria/Tetanus/Pertussis 0.5 Ml Syr/Vial) 0.5 ml IM .ONCE ONE Stop: 03/08/21 21:04 Last Admin: 03/08/21 21:16 Dose: 0.5 ml Documented by: [id number] Multivitamins 10 ml/ Thiamine HCl 100 mg/ Folic Acid 1 mg/Sodium Chloride 1,011.2 mls @ 1,011.2 mls/hr IV .Q1H ONE Stop: 03/08/21 20:23 Last Infusion: 03/08/21 21:23 Dose: 0 mls/hr Documented by: [id number] Admin: 03/08/21 20:06 Dose: 1,011.2 mls/hr Documented by: [id number] Thiamine HCl 200 mg/ Sodium (Chloride) 52 mls @ 208 mls/hr IV NOW STA Stop: 03/08/21 19:38 Last Infusion: 03/08/21 20:20 Dose: 0 mls/hr Documented by: [id number] Admin: 03/08/21 20:05 Dose: 208 mls/hr Documented by: [id number] Sodium Chloride (Nss 1000ml) 1,000 mls @ 999 mls/hr IV .Q1H1M ONE Stop: 03/08/21 20:28 Last Infusion: 03/08/21 20:15 Dose: 0 mls/hr Documented by: [id number] Admin: 03/08/21 19:15 Dose: 999 mls/hr Documented by: [id number] Magnesium Sulfate/Dextrose (Magnesium Sulfate / D5w) 1 gm in 100 mls @ 100 mls/hr IV Q1H LESLEE Stop: 03/08/21 22:11 Last Infusion: 03/08/21 23:21 Dose: 0 mls/hr Documented by: [id number] Admin: 03/08/21 22:21 Dose: 100 mls/hr Documented by: [id number] Infusion: 03/08/21 22:21 Dose: 100 mls/hr Documented by: [id number] Admin: 03/08/21 21:22 Dose: 100 mls/hr Documented by: [id number] Potassium Chloride (K Nawaf / Wtr) 10 meq in 100 mls @ 100 mls/hr IV Q1H LESLEE Stop: 03/08/21 22:14 Last Infusion: 03/08/21 22:21 Dose: 0 mls/hr Documented by: [id number] Admin: 03/08/21 21:23 Dose: 100 mls/hr Documented by: [id number] Infusion: 03/08/21 21:22 Dose: 0 mls/hr Documented by: [id number] Admin: 03/08/21 20:29 Dose: 100 mls/hr Documented by: [id number] Lorazepam (Ativan) 1 mg in 2 mls @ 2 mls/min IV NOW STA Stop: 03/08/21 20:13 Last Admin: 03/08/21 20:29 Dose: 2 mls/min Documented by: [id number] Lorazepam (Ativan) 2 mg in 4 mls @ 4 mls/min IV NOW STA Stop: 03/08/21 21:01 Last Admin: 03/08/21 21:10 Dose: 4 mls/min Documented by: [id number] Ioversol (Optiray 350 500ml) 101 ml IV ONCE ONE Stop: 03/08/21 23:00 Last Admin: 03/08/21 23:00 Dose: 101 ml Documented by: [id number] Lidocaine HCl (Xylocaine 1%/Sod Bicarb 20 Ml Vial) 20 ml INFIL NOW ONE Stop: 03/08/21 21:05 Last Admin: 03/08/21 22:21 Dose: 20 ml Documented by: [id number] Imaging Data Radiologist's Impression: Cervical Spine CT 03/08/21 19:06 CT OF THE CERVICAL SPINE WITHOUT CONTRAST CLINICAL HISTORY: ams, pain fall COMPARISON STUDY: CT of the cervical spine September 13, 2018. TECHNIQUE: Helical axial images of the cervical spine were obtained without IV contrast. Sagittal and coronal reconstructions were viewed. Automated exposure control was utilized for the study. A dose lowering technique was utilized adhering to the principles of ALARA. FINDINGS: Alignment of the cervical spine is anatomic. Vertebral body heights are maintained. No acute cervical spine fracture or subluxation is present. There is no prevertebral edema. Facet joints are intact. IMPRESSION: No acute cervical spine fracture or subluxation. ACT 112: Negative or not required by law. Electronically signed by: Lucius Sweeney M.D. 03/08/2021 7:[address] 03/08/21 19:06 CT OF THE HEAD WITHOUT CONTRAST CLINICAL HISTORY: ams, pain fall COMPARISON STUDY: Head CT and CTA of the head March 25, 2020. MRI of the brain June 28, 2020. CT DOSE: 1404.82 mGy.cm TECHNIQUE: Helical axial images of the head were obtained without IV contrast. Automated exposure control was utilized for the study. A dose lowering technique was utilized adhering to the principles of ALARA. FINDINGS: No acute intracranial hemorrhage, midline shift or mass effect is present. The ventricular system is unremarkable. The basal cisterns are patent. No extra-axial collections are present. There are no findings to suggest acute dural sinus thrombosis or acute territorial infarct. No significant calvarial abnormalities are present. Mucous retention cysts are incidentally noted within the maxillary sinuses. IMPRESSION: No acute intracranial findings. ACT 112: Negative or not required by law. Electronically signed by: Lucius Sweeney M.D. 03/08/2021 7:43 PM Chest X-Ray 03/08/21 19:07 XR chest 1V portable CLINICAL HISTORY: Chest Pain COMPARISON STUDY: Chest radiograph July 27, 2019. FINDINGS: Lung volumes are at the lower limits of normal. Lungs are clear. There is no pneumothorax or pleural effusion. Cardiac size is normal. Mediastinal contours are normal. There is no evidence for pulmonary edema. IMPRESSION: No acute cardiopulmonary findings. ACT 112: Negative or not required by law. Electronically signed by: Lucius Sweeney M.D. 03/08/2021 8:04 PM Discharge Plan Visit Data Chief Complaint: Head Injury, Minor Stated Complaint: FELL HIT R SIDE OF HEAD, EAR LAC ED Provider: Mahesh Lyn Discharge Problem: Alcohol withdrawal delirium, Unwitnessed fall, Laceration of tragus of right ear, Hypomagnesemia, Hypokalemia Patient Disposition: Admitted As Inpatient Discharge Instructions Interventions: ED Discharge Assessment Last Done: 03/08/21 22:56 Discharge Problem: Laceration of tragus of right ear Qualifiers: Encounter type: initial encounter Qualified Code(s): S01.311A - Laceration without foreign body of right ear, initial encounter
[2021-03-08] MEDS: MAGNESIUM SULFATE / D5W 1 GM/100 ML BAG IV SCH ×2 (21:22→22:21)
--- NOTE | 2021-03-08 21:45 | History & Physical Report ---
Date of Service March 08, 2021 Assessment & Plan (1) Unwitnessed fall: 60 yo M with an extensive hx of alcohol abuse and dependence, seizure disorder, RLS, carotid artery stenosis, HLD, DM2, HTN, Recurrent uncontrolled anxiety and depression who is admitted for fall and acute encephalopathy se condary to ETOH intoxication and withdrawal management. 1. Fall - unwitnessed, found to have bleeding from right ear 2/2 external laceration of tragus. Sutured by Dr. Lyn in ER. - likely secondary to inebriation given BAL of 195 (prev as high as 247) - CT Head wo con and CT C-spine negative for acute bleed, bony fracture - CTA Head and Neck negative for acute cva - Q2H neuro checks to monitor for DASH 2. Alcohol Dependence and withdrawal - hx of dependence traces back to diagnosis of prostate cancer and retiring 5 years ago. Per , drinking has gotten worse and worse since then despite multiple rehab stays, AA, support. - AWSS protocol with prn ativan - loaded with 20 mg IV valium to prevent DT and decrease need for prn benzodiaze pines - aspiration and fall precautions - 1:1 - daily IV folate and thiamine - folate and thiamine levels ordered - urine drug screen pending 3. Anxiety and Depression with hx suicidal ideation and plan - cont buspar, citalopram, mirtazipine for mood stability. - per chart review, previously has been on lamictal and seroquel but has been noncompliant with taking medications, feeling better when he takes them but frequently not. - one to one monitoring, safety tray when alert enough for diet 4. ASCVD Risk Factors - HLD/L carotid artery stenosis: cont high dose atorvastatin 80 mg. no indication for being on this and rosuvastatin 10; rosuva stopped. Cont fenofibrate and ASA. Trig 199, LDL 35, HDL 54. - DM2: on metformin and jardiance at home. SSI, carb consistent diet. A1c pending. - HTN: cont olmesartan 5. Alcoholic Liver Disease - AST/ALT 2:1 in pattern with alcohol induced liver damage - INR, Platelet function still WNL - noted leukopenia and anemia with borderline elevated MCV (92) likely from alcoholic suppression of bone marrow - outpatient evaluation with US for hepatic fibrosis reasonable 6. Restless Leg Syndrome - cont ropinorole, topamax DVT ppx: lovenox FEN/GI: NPO with sips and chips until improved consciousness, famotidine Code status: full code Dispo: PCU (2) Alcohol withdrawal delirium: (3) High triglycerides: (4) Diabetes: (5) Diverticulosis: (6) Anxiety: (7) Hyperlipidemia: (8) Hypertension: (9) Major depression, recurrent: (10) EtOH dependence: (11) Alcohol intoxication: History of Present Illness 50-year-old male with a past medical history of prostate cancer status post radiation therapy, history of TIA, history of seizure, history of subdural hematoma after fall, alcohol dependence, major depression, anxiety, restless leg syndrome, suicidal ideation, diabetes, hypertriglyceridemia, and multiple psychiatric inpatient admissions.He presents to the ER today with his after she noticed a change in mental status for him. She states that he fell over sometime in the morning when she was not at home she noticed that he had blood coming out of his right ear but it appeared to be coming from an external laceration at the inside. She started getting concerned when around 6 PM he had an acute change in mental status and was not making sense with his words. At this time she brought him to the ER.She notes that he does have a history of alcohol abuse and addiction. She has been to rehab multiple times before and says that his most recent commitment to being sober was in March of last year. She states that he has not been sober for any longer than 5 months at a time. She denies any alcohol being in the house and says that he usually buys his own and then hides the bottles. He prefers to drink whiskey. Unable to take HPI from patient due to trouble with word finding, slurring of speech and drowsiness 2/2 multiple ativan doses. He has had multiple admissions for alcohol withdrawal, fall and subsequent subdural hematoma, suicidal ideation and mood lability. ER course significant for CT Noncon head negative for acute intracranial bleeding or midline shift. CT neck negative for C-spine vertebrae damage. He received 3 mg of Ativan IV total to help stem his tremulousness and apparent withdrawal. CTA head and neck pending at time of documentation. Primary Care Provider: Matheus Riojas Allergies Allergy/AdvReac Type Severity Reaction Status Date / Time bee venom protein (honey bee) Allergy Severe ANAPHYLAXIS Verified 03/08/21 19:46 cat dander Allergy Intermediate Itchy/Watery Verified 03/08/21 19:46 Eyes, Itchy throat tamsulosin Allergy Intermediate Hives Verified 03/08/21 19:46 Home Medications Medication Instructions Recorded Confirmed Type epinephrine [EpiPen] 0.3 mg IM DIRECTED PRN 03/21/19 03/08/21 History pantoprazole 40 mg PO QAM 03/21/19 03/08/21 History citalopram 40 mg tablet 40 mg PO DAILY tab 11/11/19 03/08/21 History melatonin 5 mg capsule 5 mg PO HS 11/11/19 03/08/21 History fenofibrate nanocrystallized 145 mg PO HS 03/15/20 03/08/21 History aspirin 81 mg PO QAM #30 tab 03/26/20 03/08/21 Rx atorvastatin 80 mg PO HS #30 tab 03/26/20 03/08/21 Rx topiramate 50 mg tablet 50 mg PO BID #180 tab 10/19/20 03/08/21 Rx ropinirole 0.5 mg tablet 0.5 mg PO HS 90 Days #90 tab 10/24/20 03/08/21 Rx buspirone 30 mg PO BID PRN 03/08/21 03/08/21 History empagliflozin [Jardiance] 10 mg PO DAILY 03/08/21 03/08/21 History metformin 1,000 mg PO BID 03/08/21 03/08/21 History mirtazapine 22.5 mg PO HS 03/08/21 03/08/21 History olmesartan 5 mg PO DAILY 03/08/21 03/08/21 History rosuvastatin 10 mg PO DAILY 03/08/21 03/08/21 History Past Med/Surg History Medical History (Updated 03/09/21 @ 00:03 by Mahesh Lyn MD) Alcohol abuse Anxiety Depression Diverticulosis Headache Hyperlipidemia Hypertension Left arm weakness Panic attacks Prostate cancer (07/30/16) Suicidal behavior Suicidal ideation attempt to buy gun, was not able to buy one. TIA (transient ischemic attack) Surgical History History of cholecystectomy History of repair of ACL Family History Father , Mother age 56 of colon cancer Colorectal cancer Mother , the age 78 of a blood clot Dementia Clotting disorder Other Cancer Social History (Updated 03/09/21 @ 00:08 by Alicia Sutton MD) Smoking Status: Current every day smoker Tobacco Type: Cigars Cigarettes Per Day: 1 cigar per day. Quit cigarettes 30 years ago; Hx Alcohol Use: Yes ( no alcohol for 4 months. 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 Normal S1, S2 Pulm: rhonchorous breath sounds throughout lungs bilaterally Abd: soft, nontender, nondistended, normal bowel sounds, no rebound or guarding Extremities: 2+ peripheral pulses, no edema Neuro: CN 3-12 intact, 2+ patellar reflexes bilaterally, no focal weakness, weakly moving all extremities Results & Data Results & Data ([facility]) Vital Signs (Past 12 Hours) Vital Signs Temp Pulse Resp BP Pulse Ox 03/08/21 21:30 80 16 127/81 93 03/08/21 21:23 36.9 C 03/08/21 21:15 77 14 112/84 94 03/08/21 21:00 76 21 121/84 97 03/08/21 20:45 75 17 113/77 92 03/08/21 20:30 77 18 112/71 91 03/08/21 20:16 77 15 92/59 L 97 03/08/21 20:02 77 15 108/54 L 97 03/08/21 19:46 73 20 145/87 H 99 03/08/21 19:45 74 15 99 03/08/21 19:30 72 14 96/75 L 95 03/08/21 19:24 75 17 107/68 03/08/21 19:00 93 03/08/21 18:55 75 112/68 93 Laboratory Results WBC 4.56 K/uL (4.8-10.8) L 03/08/21 19:00 RBC 3.94 M/uL (4.7-6.1) L 03/08/21 19:00 Hgb 13.0 g/dL (14.0-18.0) L 03/08/21 19:00 Hct 36.5 % (42-52) L 03/08/21 19:00 MCV 92.6 fL (80-100) 03/08/21 19:00 MCH 33.0 pg (25-34) 03/08/21 19:00 MCHC 35.6 g/dL (32-36) 03/08/21 19:00 RDW Std Deviation 46.9 fL (36.4-46.3) H 03/08/21 19:00 RDW Coeff of Antonio 13.9 % (11.5-14.5) 03/08/21 19:00 Plt Count 160 K/uL (130-400) 03/08/21 19:00 MPV 9.5 fL (7.4-10.4) 03/08/21 19:00 Immature Gran % (Auto) 0.4 % 03/08/21 19:00 Neut % (Auto) 58.3 % 03/08/21 19:00 Lymph % (Auto) 27.9 % 03/08/21 19:00 Hardy % (Auto) 9.9 % 03/08/21 19:00 Eos % (Auto) 3.1 % 03/08/21 19:00 Baso % (Auto) 0.4 % 03/08/21 19:00 Neut # (Auto) 2.66 K/uL (1.4-6.5) 03/08/21 19:00 Lymph # (Auto) 1.27 K/uL (1.2-3.4) 03/08/21 19:00 Hardy # (Auto) 0.45 K/uL (0.11-0.59) 03/08/21 19:00 Eos # (Auto) 0.14 K/uL (0-0.5) 03/08/21 19:00 Baso # (Auto) 0.02 K/uL (0-0.2) 03/08/21 19:00 Immature Gran # (Auto) 0.02 K/uL (0.00-0.02) 03/08/21 19:00 PT 10.3 Seconds (9.0-12.0) 03/08/21 19:00 INR 1.0 (0.9-1.1) 03/08/21 19:00 APTT 24.8 Seconds (21.0-31.0) 03/08/21 19:00 PTT Ratio 0.9 03/08/21 19:00 Sodium 137 mmol/L (136-145) 03/08/21 19:00 Potassium 3.2 mmol/L (3.5-5.1) L 03/08/21 19:00 Chloride 101 mmol/L (98-107) 03/08/21 19:00 Carbon Dioxide 27 mmol/L (21-32) 03/08/21 19:00 Anion Gap 9.0 (3-11) 03/08/21 19:00 BUN 11 mg/dl (7-18) 03/08/21 19:00 Creatinine 0.83 mg/dl (0.6-1.4) 03/08/21 19:00 Est Cr Clr Drug Dosing Not Reportable 03/08/21 19:00 Est GFR ( Amer) 109.3 ml/min 03/08/21 19:00 Est GFR (Non-Af Amer) 94.3 ml/min 03/08/21 19:00 BUN/Creatinine Ratio 13.3 (10-20) 03/08/21 19:00 Glucose 101 mg/dl (70-99) H 03/08/21 19:00 Calcium 8.2 mg/dl (8.5-10.1) L 03/08/21 19:00 Phosphorus 2.5 mg/dl (2.5-4.9) 03/08/21 19:00 Magnesium 1.6 mg/dl (1.8-2.4) L 03/08/21 19:00 Total Bilirubin 0.4 mg/dl (0.2-1) 03/08/21 19:00 Direct Bilirubin 0.2 mg/dl (0-0.2) 03/08/21 19:00 AST 179 U/L (15-37) H 03/08/21 19:00 ALT 70 U/L (12-78) 03/08/21 19:00 Alkaline Phosphatase 76 U/L (45-117) 03/08/21 19:00 Total Creatine Kinase 217 U/L (39-308) 03/08/21 19:00 Troponin I < 0.015 ng/ml (0-0.045) 03/08/21 19:00 Total Protein 7.3 gm/dl (6.4-8.2) 03/08/21 19: Albumin 3.4 gm/dl (3.4-5.0) 03/08/21 19:00 Globulin 3.9 gm/dl (2.5-4.0) 03/08/21 19:00 Albumin/Globulin Ratio 0.9 (0.9-2) 03/08/21 19:00 Triglycerides 199 mg/dl (0-150) H 03/08/21 19:00 Cholesterol 129 mg/dl (0-200) 03/08/21 19:00 LDL Cholesterol, Calc 35 mg/dl 03/08/21 19:00 VLDL Cholesterol, Calc 40 mg/dl 03/08/21 19:00 HDL Cholesterol 54 mg/dl 03/08/21 19:00 Cholesterol/HDL Ratio 2 03/08/21 19:00 Lipase 339 U/L (73-393) 03/08/21 19:00 TSH 2.160 uIu/ml (0.300-4.500) 03/08/21 19:00 Urine Color Yellow 03/08/21 20:10 Urine Appearance Clear (Clear) 03/08/21 20:10 Urine pH 7.0 (4.5-7.5) 03/08/21 20:10 Ur Specific [place] 1.016 (1.000-1.030) 03/08/21 20:10 Urine Protein Negative (Negative) 03/08/21 20:10 Urine Glucose (UA) 3+ (Negative) H 03/08/21 20:10 Urine Ketones Negative (Negative) 03/08/21 20:10 Urine Blood 2+ (Negative) H 03/08/21 20:10 Urine Nitrite Negative (Negative) 03/08/21 20:10 Urine Bilirubin Negative (Negative) 03/08/21 20:10 Urine Urobilinogen Negative (Negative) 03/08/21 20:10 Ur Leukocyte Esterase Negative (Negative) 03/08/21 20:10 Urine WBC (Auto) 1-5 /hpf (0-5) 03/08/21 20:10 Urine RBC (Auto) >30 /hpf (0-4) H 03/08/21 20:10 U Hyaline Cast (Auto) 1-5 /lpf (0-5) 03/08/21 20:10 U Epithel Cells (Auto) >30 /lpf (0-5) H 03/08/21 20:10 Urine Bacteria (Auto) Negative (Negative) 03/08/21 20:10 Ur Renal Epithelial Cell Not Reportable 03/08/21 20:10 Ethyl Alcohol mg/dL 195.0 mg/dl (0-3) H 03/08/21 19:30 COVID-19 Eval Order Covid19 at [facility] 03/08/21 20:10 SARS-CoV-2 (PCR) NEGATIVE (Negative) 03/08/21 20:[address] 03/08/21 19:06 CT OF THE CERVICAL SPINE WITHOUT CONTRAST FINDINGS: Alignment of the cervical spine is anatomic. Vertebral body heights are maintained. No acute cervical spine fracture or subluxation is present. There is no prevertebral edema. Facet joints are intact. IMPRESSION: No acute cervical spine fracture or subluxation. Head CT 03/08/21 19:06 CT OF THE HEAD WITHOUT CONTRAST FINDINGS: No acute intracranial hemorrhage, midline shift or mass effect is present. The ventricular system is unremarkable. The basal cisterns are patent. No extra-axial collections are present. There are no findings to suggest acute dural sinus thrombosis or acute territorial infarct. No significant calvarial abnormalities are present. Mucous retention cysts are incidentally noted within the maxillary sinuses. IMPRESSION: No acute intracranial findings. Chest X-Ray 03/08/21 19:07 XR chest 1V portable FINDINGS: Lung volumes are at the lower limits of normal. Lungs are clear. There is no pneumothorax or pleural effusion. Cardiac size is normal. Mediastinal contours are normal. There is no evidence for pulmonary edema. IMPRESSION: No acute cardiopulmonary findings. CTA Head: Atherosclerotic calcifications of the distal ICAs. No significant stenosis. Atherosclerotic calcifications of the V4 segment of the left vertebral artery, causing at least 50% stenosis focally. No other significant stenosis, occlusion, or aneurysm of the central or large intracranial vessels CTA Neck: Mild atherosclerotic changes at the origins of the great vessels. No significant stenosis. Atherosclerotic calcification in the carotid bulbs and proximal ICAs. [id number]%stenosis in bilateral proximal ICAs. This is similar compared to prior exam. No occlusion identified. Dominant right vertebral artery. Atherosclerotic calcifications of the origins of the vertebral arteries. Supervising Physician Co-Signing Physician Notes Patient seen and examined, chart reviewed, case discussed with Dr. uStton and I agree with her assessment and plan as above. Briefly, patient is a 60yo male with EtOH abuse presenting after fall, AMS and concern for withdrawal. states that he has been periodically non-sensical with his words.. No focal deficits. On exam, patient has laceration inside right ear. He is oriented x 0 during my encounter, nursing states that he has been intermittently oriented x 3. States that his name is "Abdulaziz" which is not his name, nickname or middle name per Skin - right ear laceration HEENT - NC/AT, PERRL, EOMI, MMM Heart - +S1/S2, regular, no m/r/g Lungs - + wheezing Abd - +BS, soft, NT/ND Ext - No edema Neuro - grossly nonfocal, moving 4 extremities with equal power 5/5 Labs and images reviewed Assessment/Plan: Concern for EtOH withdrawal. Patient drinks appx 1/5 of liquor every day to 2 days. No other substance use. -CTA Head and neck obtained - patient with history of carotid stenosis, ?CVA -Valium, AWSS -IVF and electrolyte repletion -Remainder of plan as above Resident Activity Tracking Resident Involvement: Resident Care Provided Care Provided: Adult Hospital Medicine (1) EtOH dependence Substance use status: uncomplicated Qualified Code(s): F10.20 - Alcohol dependence, uncomplicated (2) Hyperlipidemia Hyperlipidemia type: unspecified Qualified Code(s): E78.5 - Hyperlipidemia, unspecified (3) Hypertension Hypertension type: essential hypertension Qualified Code(s): I10 - Essential (primary) hypertension
[2021-03-08 22:35] LABS: Chol HDL Ratio 2; Cholesterol 129 mg/dl (0-200); HDL Cholesterol 54 mg/dl; LDL Cholesterol Calculated 35 mg/dl; Triglycerides 199 mg/dl (0-150); VLDL Cholesterol 40 mg/dl
[2021-03-08] MEDS ORDERED: OPTIRAY 350 500ml IV ONE (22:59)
[2021-03-08] MEDS ORDERED: LORazepam 3 MG/6 ML VIAL IV PRN (23:26)
[2021-03-08] MEDS ORDERED: Ativan IV Alcohol Withdrawal--Active Protocol IV PRN (23:26)
[2021-03-08] MEDS ORDERED: LORazepam 2 MG/4 ML VIAL IV PRN (23:26)
[2021-03-08] MEDS ORDERED: ALBUT/IPRATROP 3MG/0.5MG NEB 3 ML VIAL NEB STA (23:39)
[2021-03-08 23:49] LABS: Hematocrit (blood only) 34.3 % (42-52); Hemoglobin 12.1 g/dL (14.0-18.0); Mean Corpuscular Hemoglobin 32.7 pg (25-34); Mean Corpuscular Hgb Conc 35.3 g/dL (32-36); Mean Corpuscular Volume 92.7 fL (80-100); RDW Coefficient of Variation 14.1 % (11.5-14.5); RDW Standard Deviation 47.6 fL (36.4-46.3); White Blood Count 2.74 K/uL (4.8-10.8)
[2021-03-08] MEDS ORDERED: diazePAM 5 MG/ML 10ML VIAL IV STA (23:54)
[2021-03-08] MEDS ORDERED: ONDANSETRON INJ 2 MG/ML 2 ML VIAL IV PRN (23:55)
[2021-03-08] MEDS ORDERED: NITROGLYCERIN SL 0.4 MG/TAB TAB SL PRN (23:55)
[2021-03-08] MEDS ORDERED: MAGNESIUM HYDROXIDE SUSP 30 ML UDC PO PRN (23:55)
[2021-03-08 23:59] LABS: INR 1.1 (0.9-1.1); Prothrombin Time 10.9 Seconds (9.0-12.0)
[2021-03-09 00:08] LABS: Albumin Level 2.9 gm/dl (3.4-5.0); BUN Creatinine Ratio 14.4 (10-20); Bilirubin Direct 0.3 mg/dl (0-0.2); Calcium 7.7 mg/dl (8.5-10.1); Creatinine Clr Calc Pharmacy 155.9 ml/min; Est GFR (African American) 121.6 ml/min; Est GFR (Non-African American) 104.9 ml/min; Potassium 3.2 mmol/L (3.5-5.1)
[2021-03-09 00:09] LABS: Basophils # (auto) 0.03 K/uL (0-0.2); Basophils % (auto) 1.1 %; Eosinophils # (auto) 0.15 K/uL (0-0.5); Eosinophils % (auto) 5.5 %; Immature Granulocytes # (auto) 0.02 K/uL (0.00-0.02); Immature Granulocytes % (auto) 0.7 %; Lymphocytes # (auto) 0.67 K/uL (1.2-3.4); Lymphocytes % (auto) 24.5 %; Mean Platelet Volume 9.3 fL (7.4-10.4); Monocytes # (auto) 0.19 K/uL (0.11-0.59); Monocytes % (auto) 6.9 %; Neutrophils # (auto) 1.68 K/uL (1.4-6.5); Neutrophils % (auto) 61.3 %; Platelet Count 99 K/uL (130-400); Platelet Estimate Decreased (Normal)
[2021-03-09 00:24] LABS: Albumin Globulin Ratio 0.9 (0.9-2); Bilirubin,Total 0.4 mg/dl (0.2-1); Globulin 3.3 gm/dl (2.5-4.0); Total Protein 6.2 gm/dl (6.4-8.2)
[2021-03-09 00:46] LABS: Folate (Folic Acid),Ser orPlas > 20.00 ng/ml (>5.38); Vitamin B12 323 pg/ml (193-986)
[2021-03-09 00:56] LABS: Amphetamines+Metham, Urine Neg (Neg); Barbiturates, Urine Neg (Neg); Benzodiazepine, Urine Neg (Neg); Cocaine, Urine Neg (Neg); MDMA (Ecstacy), Urine Neg (Neg); Methadone, Urine Neg (Neg); Opiate, Urine Neg (Neg); Phencyclidine, Urine Neg (Neg)
[2021-03-09] MEDS ORDERED: GLUCOSE 40% GEL 15 GM TUBE PO PRN (01:10)
[2021-03-09] MEDS ORDERED: GLUCAGON FOR INJ 1 MG VIAL SQ PRN (01:10)
[2021-03-09] MEDS ORDERED: CARBOHYDRATES FOR HYPOGLYCEMIA PO PRN (01:10)
[2021-03-09] MEDS ORDERED: GLUCOSE 10 TAB/TUBE PO PRN (01:10)
[2021-03-09] MEDS ORDERED: DEXTROSE 50% 50 ML SYRINGE IV PRN (01:10)
[2021-03-09] MEDS: ACETAMINOPHEN 325 MG TAB PO PRN ×2 (01:27→09:08)
[2021-03-09] MEDS: SODIUM CHLORIDE 0.9% 1,000 ML IV SCH ×3 (02:07→21:30)
[2021-03-09] MEDS: FOLIC ACID 1 MG in SYRINGE 9.8 ML IV SCH ×2 (02:07→09:11)
[2021-03-09] MEDS: THIAMINE HCL 100 MG in SYRINGE 9 ML IV SCH ×2 (02:07→09:11)
[2021-03-09] MEDS: MELATONIN 3 MG TAB PO SCH ×2 (02:47→21:07)
--- NOTE | 2021-03-09 03:23 | Billing Data ---
Date of Service March 08, 2021 Coding Level of Care Code 89098 Initial Inpt Care Lvl 3
[2021-03-09 05:58] LABS: Hematocrit (blood only) 33.7 % (42-52); Hemoglobin 11.8 g/dL (14.0-18.0); Mean Corpuscular Hemoglobin 33.2 pg (25-34); Mean Corpuscular Volume 94.9 fL (80-100); Mean Platelet Volume 9.5 fL (7.4-10.4); Platelet Count 111 K/uL (130-400); RDW Standard Deviation 48.8 fL (36.4-46.3); Red Blood Count 3.55 M/uL (4.7-6.1); White Blood Count 2.64 K/uL (4.8-10.8)
[2021-03-09 06:35] LABS: Albumin Level 2.9 gm/dl (3.4-5.0); BUN Creatinine Ratio 15.6 (10-20); Calcium 7.4 mg/dl (8.5-10.1); Creatinine Clr Calc Pharmacy 163.6 ml/min; Potassium 3.4 mmol/L (3.5-5.1)
[2021-03-09 06:38] LABS: Albumin Globulin Ratio 0.9 (0.9-2); Bilirubin,Total 0.6 mg/dl (0.2-1); Globulin 3.2 gm/dl (2.5-4.0); Total Protein 6.1 gm/dl (6.4-8.2)
--- NOTE | 2021-03-09 07:18 | CT Scan Report ---
HEAD CTA HISTORY: Stroke symptoms. Altered mental status. TECHNIQUE: Multiaxial CT images of the head were performed both before and after the intravenous admi nistration of contrast to evaluate the major cerebral vessels. Maximum intensity projection images we re also obtained. A dose lowering technique was utilized adhering to the principles of ALARA. COMPARISON: None. FINDINGS: Severe calcified plaque within the bilateral carotid siphons resulting in long segments of moderate stenosis of approximately 50-70% bilaterally. The major dural venous sinuses are patent. Foc al calcified plaque within the distal left vertebral artery demonstrating approximately 75% stenosis best seen on image 29. The distal left vertebral artery is hypoplastic in comparison to the right. Th e basilar artery and distal right vertebral artery are patent. There is no significant stenosis, occl usion, or aneurysm seen within the bilateral ACAs, MCAs, or physician relations representative. IMPRESSION: 1. Moderate stenosis within the bilateral carotid siphons and distal left vertebral artery due to the calcified plaque as described above. 2. No significant stenosis, occlusion, or aneurysm within the bilateral ACAs, MCAs, or physician relations representative. ACT 112: Negative or not required by law. Electronically signed by: Luciano Chaney M.D. 03/09/2021 7:17 AM
[2021-03-09 07:45] LABS: Estimated Average Glucose 123 mg/dl; Hemoglobin A1C 5.9 % (4.5-5.6)
[2021-03-09] MEDS: INSULIN ASPART 100 UNITS/ML 3 ML PEN SC SCH ×4 (07:54→21:00)
[2021-03-09] MEDS ORDERED: CYANOCOBALAMIN 1000 MCG/ML VIAL IM ONE (08:30)
[2021-03-09] MEDS ORDERED: FAMOTIDINE 20 MG in SYRINGE 3 ML IV SCH (09:00)
--- NOTE | 2021-03-09 09:01 | CT Scan Report ---
CT angio neck with con CLINICAL HISTORY: concern fro stroke COMPARISON STUDY: March 25, 2020 TECHNIQUE: CT angiography was performed from the aortic arch to the skull base. MIP imaging was perfo rmed. The patient was scanned in a dynamic helical fashion during intravenous administration of cc of Optiray. A dose lowering technique was utilized adhering to the principles of ALARA. CT DOSE: Technique: CT angiogram of the carotid and vertebral arteries was obtained using intravenous contrast and 3-D reconstruction. NASCET criteria was utilized. Findings: Heavy calcified plaques are seen in bilateral carotid bulbs with 50-75% stenosis. Heavily calcified plaques are seen within cavernosal portion of bilateral carotid arteries with moder ate to severe stenosis on the right and severe, above 90% stenosis on the left (serious 4 image 386) overall evaluation is limited due to blooming artifact and findings are similar to prior. Calcified p laque is again seen at the origin of the right vertebral artery was approximately 50% stenosis. Heavily calcified plaque is seen within proximal aspect of the V4 segment of the left vertebral arter y and associated with long segment distal narrowing. Calcified plaque is seen at the origin of the left vertebral artery. Evaluation is limited due to mot ion artifact. No evidence of focal occlusion, dissection or aneurysmal dilatation is seen. Limited evaluation of lung bases shows minimal paraseptal emphysema. Visualized portion of thyroid gland shows no evidence of focal lesions. Findings are similar to prior study performed on March 25, 2020. IMPRESSION: 1. Atherosclerotic involvement of bilateral carotid and vertebral arteries, similar to prior study. 2. Severe stenosis at the cavernosal portion of the left internal carotid artery is similar to prior study. Limited evaluation due to blooming artifact. 3. Long segment narrowing of the distal portion of left V4. 4. No evidence of focal occlusion, aneurysmal dilatation or dissection. ACT 112: Negative or not required by law. The above report was generated using voice recognition software. It may contain grammatical, syntax o r spelling errors. Electronically signed by: Ijeoma Dickerson DO 03/09/2021 8:59 AM
[2021-03-09] MEDS: LORazepam 1 MG/2 ML VIAL IV PRN ×2 (09:04→16:57)
[2021-03-09] MEDS: TOPIRAMATE 50 MG TAB PO SCH ×2 (09:08→21:04)
[2021-03-09] MEDS: ENOXAPARIN INJ 40 MG/0.4 ML SYR SQ SCH (09:08)
[2021-03-09] MEDS: PANTOprazole 40 MG TAB PO SCH (09:10)
[2021-03-09] MEDS: CITALOPRAM 40 MG TAB PO SCH (09:10)
[2021-03-09] MEDS: OLMESARTAN MEDOXOMIL 5 MG TAB PO SCH (09:10)
[2021-03-09] MEDS: POLYETHYLENE (MIRALAX) 17 GM PACK PO SCH (09:11)
[2021-03-09] MEDS: busPIRone 15 MG TAB PO PRN (09:12)
[2021-03-09] MEDS: POTASSIUM CHLORIDE / WTR 10 MEQ/100 ML PLCT IV SCH ×2 (09:12→12:06)
[2021-03-09] MEDS: ASPIRIN 81 MG ECTAB PO SCH (09:13)
--- NOTE | 2021-03-09 10:17 | Neurology Consultation ---
Date of Consultation March 09, 2021 Assessment & Plan (1) Unwitnessed fall: (2) EtOH dependence: (3) Carotid artery stenosis: (4) RLS (restless legs syndrome): (5) Seizure disorder: Unwitnessed fall complicated by a laceration to the right ear, occurring in the context of alcohol intoxication in a patient with a history of chronic alcoholism, remote history of subdural hematoma complicated by transient focal motor seizures, resolved. There is no compelling clinical evidence that this patient may have had an unwitnessed seizure at home. I suspect his fall was related to alcohol intoxication. There is no evidence of acute process on his CT of the head. He does have a high-grade stenosis within the cavernous portion of the left internal carotid artery. This vascular lesion is not likely clinically significant in the context of his current presentation. He does not have any clinical signs or symptoms suggestive of a left hemispheric stroke. Cavernous carotid lesions could potentially be treated with stenting on a [id number] basis. The patient follows with a specialist at an outside facility for this issue. I would recommend obtaining a brain MRI to further exclude an acute process. He does not require an EEG at this time. He should continue with daily low-dose aspirin and atorvastatin. This patient's blood pressure was somewhat low yesterday and I wonder if hypotension may have contributed to his fall at home. In that context, I would like him to discontinue the ropinirole which is prescribed for his restless leg syndrome. Ropinirole may exacerbate orthostatic hypotension or dizziness. He may continue with topiramate at the current dosage which is prescribed for headaches at this point in time, rather than seizure prevention. Again, his seizures resolved after resolution of his subdural hematomas. Continue medical management of alcohol dependence/withdrawal. History of Present Illness Reason for Consultation: History of seizures, encephalopathy Requesting Physician: Janice Cerna MD Attending Physician: Janice Cerna MD History of Present Illness The patient is a 60-year-old male who is known to me. He has a history of alcoholism, subdural hematoma, seizure disorder, and headaches. His seizures were previously of the focal motor type and related to a subdural hematoma, resolved, not taking an anticonvulsant for the purpose of seizure prevention any longer. He was last seen in neurology clinic October 19, 2020. He has been complaining of right-sided headaches that improved with topiramate that was started after a hospitalization last June for strokelike symptoms related to dehydration and cerebrovascular disease. He is also prescribed ropinirole for restless leg syndrome. History also notable for a severe stenosis within the cavernous portion of the left internal carotid artery. The patient has [facility] after presenting to the emergency department yesterday for further evaluation of a fall. The patient does not really recollect what may have happened. His spouse apparently came home from work yesterday and noted that he have been bleeding from a significant laceration involving his right ear. He was notably confused during his assessment in the emergency department. A blood alcohol level was 195. A CT of the head was negative for hemorrhage or acute process. A CT angiogram of the head and neck was completed as well which revealed moderate stenosis within the bilateral carotid siphons and distal left vertebral artery due to calcified plaque. There was severe stenosis at the cavernous portion of the left internal carotid artery and a long segment of narrowing of the distal portion of the left V4 segment. No evidence of dissection. The patient remains relatively amnestic for his apparent fall. He currently denies headache, focal weakness or other specific neurologic symptom. He is slightly confused and mildly inattentive. Additional details as below. Allergies Allergy/AdvReac Type Severity Reaction Status Date / Time bee venom protein (honey bee) Allergy Severe ANAPHYLAXIS Verified 03/08/21 19:46 cat dander Allergy Intermediate Itchy/Watery Verified 03/08/21 19:46 Eyes, Itchy throat tamsulosin Allergy Intermediate Hives Verified 03/08/21 19:46 Home Medications Medication Instructions Recorded Confirmed Type epinephrine [EpiPen] 0.3 mg IM DIRECTED PRN 03/21/19 03/08/21 History pantoprazole 40 mg PO QAM 03/21/19 03/08/21 History citalopram 40 mg tablet 40 mg PO DAILY tab 11/11/19 03/08/21 History melatonin 5 mg capsule 5 mg PO HS 11/11/19 03/08/21 History fenofibrate nanocrystallized 145 mg PO HS 03/15/20 03/08/21 History aspirin 81 mg PO QAM #30 tab 03/26/20 03/08/21 Rx atorvastatin 80 mg PO HS #30 tab 03/26/20 03/08/21 Rx topiramate 50 mg tablet 50 mg PO BID #180 tab 10/19/20 03/08/21 Rx ropinirole 0.5 mg tablet 0.5 mg PO HS 90 Days #90 tab 10/24/20 03/08/21 Rx buspirone 30 mg PO BID PRN 03/08/21 03/08/21 History empagliflozin [Jardiance] 10 mg PO DAILY 03/08/21 03/08/21 History metformin 1,000 mg PO BID 03/08/21 03/08/21 History mirtazapine 22.5 mg PO HS 03/08/21 03/08/21 History olmesartan 5 mg PO DAILY 03/08/21 03/08/21 History rosuvastatin 10 mg PO DAILY 03/08/21 03/08/21 History Patient History Medical History Alcohol abuse Anxiety Depression Diverticulosis Headache Hyperlipidemia Hypertension Left arm weakness Panic attacks Prostate cancer (07/30/16) Suicidal behavior Suicidal ideation attempt to buy gun, was not able to buy one. TIA (transient ischemic attack) Surgical History History of cholecystectomy History of repair of ACL Family History Father , Mother age 56 of colon cancer Colorectal cancer Mother , the age 78 of a blood clot Dementia Clotting disorder Other Cancer Social History Smoking Status: Current every day smoker Tobacco Type: Cigars Cigarettes Per Day: 1 cigar per day. Quit cigarettes 30 years ago; Hx Alcohol Use: Yes ( no alcohol for 4 months. 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 [employer] Feels Safe at Home: Yes Assistive Devices: None Review of Systems Constitutional: no fever and no chills Eyes: no blind spots and no diplopia Ear, Nose, Mouth, Throat: no hearing loss Respiratory: no cough and no dyspnea Cardiovascular: no chest pain and no palpitations Gastrointestinal: no nausea and no vomiting Genitourinary: no dysuria Musculoskeletal: no myalgia Integumentary: no rash and no lesions Neurologic: as per Subjective / HPI and + confusion; no localized weakness, no loss of sensation, no tremor(s) and no headache(s) Psychiatric: no depression and no anxiety Hematologic / Lymphatic: no easy bleeding and no easy bruising Exam (Neuro) Constitutional: well developed and well nourished; no acute distress Eyes: normal visual rivero by confrontation, PERRL, normal accommodation and EOM intact bilaterally; no fundoscopic abnormality, no nystagmus and no papilledema Cardiovascular: Vessels: normal carotid upstroke; no carotid bruit Neurologic: Oriented to:: Person; negative Place and Time Memory: Remote Intact; negative Short Term Intact Attention: negative Span Intact and Concentration Intact Language: Naming Objects and Repeating Phrases Speech Fluency: negative Dysarthria Speech Aphasia: negative Aphasia Fund of Knowledge: Past History and Vocabulary; negative Current Events Cranial Nerves: Normal II (Visual rivero full to confrontation, visual acuity normal), III, IV, (Pupils equal round reactive to light and accommodation, eye movements normal), V (Facial sensation intact), VII (There is no facial droop or weakness), VIII (Hearing intact), IX, X (Palate elevates to midline), XI (Shoulder shrug intact) and XII (Tongue protrudes to midline) Motor Strength: Normal Lower Extremities and Normal Upper Extremities; negative Pronator Drift Motor Tone: Normal Lower Extremities and Normal Upper Extremities Muscle Bulk/Involuntary Movements: No Involuntary Movements; negative Muscle Atrophy Sensation: Light Touch Intact, Pain/Temperature Intact, Vibration Intact and Proprioception Intact Coordination: Finger-Nose Abnormal (Mild dysmetria [id number] bilaterally.); negative Dysdiadochokinesia and Heel-Becker Abnormal Deep Tendon Reflexes: Rt Triceps: 2+, Lt Triceps: 2+, Rt Biceps: 2+, Lt Biceps: 2+, Rt Brachioradialis: 2+, Lt Brachioradialis: 2+, Rt Patellar: 2+, Lt Patellar: 2+, Rt Ankle: 1+ and Lt Ankle: 1+ Special Tests: negative Babinski Present Details: Gait not tested in the context of patient's neurological condition. Results & Data ([facility]) Vital Signs (Past 12 Hours) Vital Signs Temp Pulse Pulse Resp BP BP Pulse Ox 03/09/21 07:03 36.8 C 72 20 126/81 96 03/09/21 07:00 76 03/09/21 00:32 75 18 97 03/09/21 00:15 81 03/08/21 23:26 36.9 C 84 20 96 03/08/21 22:30 84 27 H 126/82 97 03/08/21 22:00 78 21 124/79 95 03/08/21 21:45 79 24 120/77 94 Laboratory Results WBC 2.64, hemoglobin 11.8, hematocrit 33.7, platelet count 111, sodium 141, potassium 3.4, BUN 9, creatinine 0.61, glucose 91, hemoglobin A1c 5.9, calcium 7.4, magnesium 1.6, AST 146, ALT 57, triglycerides 199, cholesterol 129, LDL 35, VLDL 40, HDL 54, vitamin B12 323, folate greater than 20, TSH 2.160, ethyl alcohol level 195 Diagnostic Findings Neuro imaging including CT of the head and CT angiography of the head and neck are as described in the history of present illness. I reviewed the images as well as the radiologist's interpretation of these test. Patient also had a CT of the cervical spine completed yesterday that was negative for acute fracture or subluxation. An electrocardiogram revealed a normal sinus rhythm, 76 bpm. Coding Level of Care Code 26509 Inpt Consult Level 5 Diagnoses Unwitnessed fall R29.6 EtOH dependence F10.20 Substance use status: uncomplicated Carotid artery stenosis I65.29 RLS (restless legs syndrome) G25.81 Seizure disorder G40.909 (1) EtOH dependence Substance use status: uncomplicated Qualified Code(s): F10.20 - Alcohol dependence, uncomplicated
[2021-03-09] MEDS ORDERED: ACETAMINOPHEN 500 MG TAB PO PRN (12:17)
--- NOTE | 2021-03-09 12:18 | Hospitalist Progress Note ---
Date of Service March 09, 2021 Assessment & Plan (1) Unwitnessed fall: 60 yo M with an extensive hx of alcohol abuse and dependence, seizure disorder secondary to history of SDH, RLS, carotid artery stenosis, HLD, DM2, HTN, Recurrent uncontrolled anxiety and depression who is admitted for fall and acute encephalopathy secondary to ETOH intoxication and withdrawal. Fall - unwitnessed, found to have bleeding from right ear 2/2 external laceration of tragus. Sutured by Dr. Lyn in ER. - likely secondary to alcohol intoxication given BAL of 195 on admission (prev as high as 247) - CT Head wo con and CT C-spine negative for acute bleed, bony fracture - CTA Head and Neck negative for acute cva - Q2H neuro checks -Appreciate neurology consultation-brain MRI performed and is without acute changes. No need for EEG and he does not suspect this is a seizure but more likely secondary to alcohol intoxication and withdrawal -PT/OT consultations for tomorrow -Neurology also recommended discontinuing ropinirole as this can cause orthostatic hypotension and did present with some hypotension on admission (2) Alcohol withdrawal delirium: Alcohol Dependence and withdrawal - hx of dependence traces back to diagnosis of prostate cancer and retiring 5 years ago. Per , drinking has gotten worse and worse since then despite multiple rehab stays, AA, support. - AWSS protocol with prn ativan - loaded with 20 mg IV valium to prevent DT and decrease need for prn benzodiazepines - aspiration and fall precautions - 1:1 for safety - daily IV folate and thiamine - folate normal and B12 mildly low - urine drug screen negative -Need to see if patient is interested in rehab (3) Diabetes: DM2: on metformin and jardiance at home. SSI, carb consistent diet. A1c 5.9% very well controlled (4) Anxiety: Anxiety and Depression with hx suicidal ideation and plan - cont buspar, citalopram, mirtazapine for mood stability. - per chart review, previously has been on lamictal and seroquel but has been noncompliant with taking medications, feeling better when he takes them but frequently not. (5) Major depression, recurrent: As above (6) Hyperlipidemia: HLD/L carotid artery stenosis: Patient does fill prescriptions for both atorvastatin and rosuvastatin as an outpatient -Discontinue rosuvastatin and continue atorvastatin -Cont fenofibrate and ASA. Trig 199, LDL 35, HDL 54. (7) Hypertension: Blood pressures controlled Cont olmesartan (8) Alcoholic hepatitis: - AST/ALT 2:1 in pattern with alcohol induced liver damage - INR, Platelet function still WNL - noted leukopenia and anemia with borderline elevated MCV (92) likely from alcoholic suppression of bone marrow - outpatient evaluation with US for hepatic fibrosis reasonable LFTs are improving today Follow LFTs in the morning (9) Laceration of tragus of right ear: Sutured in the ER Will need suture removal in 7 to 10 days Ordered for wound care with daily OPTi foam dressing to be changed (10) RLS (restless legs syndrome): Neurology recommended discontinuation of ropinirole as above for possible orthostasis (11) Seizure disorder: History of seizures in the setting of subdural hematomas but has since been weaned off all seizure medication He takes Topamax for chronic headaches (12) Carotid artery stenosis: Moderate stenosis bilaterally Continue statin, aspirin Continue to monitor as an outpatient No evidence of stroke on MRI here (13) Hypokalemia: Replaced upon admission and continues to be mildly low today Give potassium chloride 20 mEq today Follow BMP and magnesium in the morning (14) Hypomagnesemia: Low on arrival and replaced with IV magnesium sulfate, now improved (15) Headache: Has a history of chronic migraines on Topamax Also with a headache here due to head trauma from fall and ear laceration CT head and MRI brain without intracranial hemorrhage Tylenol as needed (16) Alcohol intoxication: As above Encourage cessation Watch for withdrawal (17) EtOH dependence: As above (18) Vitamin B12 deficiency: B12 level borderline low at 323 Replaced with cyanocobalamin 1000 mcg IM x1 (19) DVT prophylaxis: Lovenox Disposition-continued stay on telemetry, PT/OT consultations for tomorrow, watch for withdrawal, mentation still not back to baseline Admission and Anticipated Discharge Date Admission Date: March 08, 2021 Subjective Pt reports feeling better. Has a moderate headache on right side and pain in right ear at site of laceration. Denies lightheadedness, no CP/SOB, no abd pain, no N/V/D. Is moving his bowels. Does not recall events of his fall yesterday. Telemetry with normal sinus rhythm, rates in the 70s, PACs and PVCs Review of Systems Review of Systems: All systems reviewed & are unremarkable except as noted in HPI & below Physical Exam Constitutional: WD/WN, vitals as above Eyes: PERRL, conjunctivae normal, anicteric sclerae ENMT: Ears: + external ear abnormality (Right ear tragus with sutures in place with scant serosanguineous drainage); no hearing impairment Neck: trachea midline, no thyromegaly Respiratory: normal respiratory effort, lungs clear to auscultation Cardiovascular: RRR, no murmur, no edema Chest (Breasts): Chest: normal inspection of chest Gastrointestinal (Abdomen): normal bowel sounds, soft, nontender, no hepatosplenomegaly Musculoskeletal: Extremities: extremities normal to inspection; no cyanosis and no clubbing Skin: no rashes, warm and dry Neurologic: moves all extremities and awake; no focal motor deficits Psychiatric: Orientation: alert, oriented x 3 and cooperative Eye Contact: + fair eye contact Speech: normal rate/rhythm/volume of speech Affect: + flat affect Lymphatic: no lymphedema Results & Data Results & Data ([facility]) Vital Signs (Past 12 Hours) Vital Signs Temp Pulse Pulse Resp BP Pulse Ox 03/09/21 11:07 36.8 C 67 19 127/87 93 03/09/21 07:03 36.8 C 72 20 126/81 96 03/09/21 07:00 76 03/09/21 00:32 75 18 97 Laboratory Results 03/09/21 03/09/21 03/09/21 Range/Units 12:02 07:49 05:23 WBC 2.64 L (4.8-10.8) K/uL RBC 3.55 L (4.7-6.1) M/uL Hgb 11.8 L (14.0-18.0) g/dL Hct 33.7 L (42-52) % MCV 94.9 (80-100) fL MCH 33.2 (25-34) pg MCHC 35.0 (32-36) g/dL RDW Std Deviation 48.8 H (36.4-46.3) fL RDW Coeff of Antonio 14.0 (11.5-14.5) % Plt Count 111 L (130-400) K/uL MPV 9.5 (7.4-10.4) fL Immature Gran % (Auto) % Neut % (Auto) % Lymph % (Auto) % Rankin % (Auto) % Eos % (Auto) % Baso % (Auto) % Neut # (Auto) (1.4-6.5) K/uL Lymph # (Auto) (1.2-3.4) K/uL Rankin # (Auto) (0.11-0.59) K/uL Eos # (Auto) (0-0.5) K/uL Baso # (Auto) (0-0.2) K/uL Immature Gran # (Auto) (0.00-0.02) K/uL Platelet Estimate (Normal) PT (9.0-12.0) Seconds INR (0.9-1.1) APTT (21.0-31.0) Seconds PTT Ratio Sodium (136-145) mmol/L Potassium (3.5-5.1) mmol/L Chloride (98-107) mmol/L Carbon Dioxide (21-32) mmol/L Anion Gap (3-11) BUN (7-18) mg/dl Creatinine (0.6-1.4) mg/dl Est Cr Clr Drug Dosing Est GFR ( Amer) ml/min Est GFR (Non-Af Amer) ml/min BUN/Creatinine Ratio (10-20) Glucose (70-99) mg/dl POC Glucose 103 H 105 H (70-99) mg/dl Estimat Average Glucose mg/dl Hemoglobin A1c (4.5-5.6) % Calcium (8.5-10.1) mg/dl Phosphorus (2.5-4.9) mg/dl Magnesium (1.8-2.4) mg/dl Total Bilirubin (0.2-1) mg/dl Direct Bilirubin (0-0.2) mg/dl AST (15-37) U/L ALT (12-78) U/L Alkaline Phosphatase (45-117) U/L Total Creatine Kinase (39-308) U/L Troponin I (0-0.045) ng/ml Total Protein (6.4-8.2) gm/dl Albumin (3.4-5.0) gm/dl Globulin (2.5-4.0) gm/dl Albumin/Globulin Ratio (0.9-2) Triglycerides (0-150) mg/dl Cholesterol (0-200) mg/dl LDL Cholesterol, Calc mg/dl VLDL Cholesterol, Calc mg/dl HDL Cholesterol mg/dl Cholesterol/HDL Ratio Lipase (73-393) U/L Vitamin B12 (193-986) pg/ml Folate (>5.38) ng/ml TSH (0.300-4.500) uIu/ml Urine Color Urine Appearance (Clear) Urine pH (4.5-7.5) Ur Specific [place] Level (1.000-1.030) Urine Protein (Negative) Urine Glucose (UA) (Negative) Urine Ketones (Negative) Urine Blood (Negative) Urine Nitrite (Negative) Urine Bilirubin (Negative) Urine Urobilinogen (Negative) Ur Leukocyte Esterase (Negative) Urine WBC (Auto) (0-5) /hpf Urine RBC (Auto) (0-4) /hpf U Hyaline Cast (Auto) (0-5) /lpf U Epithel Cells (Auto) (0-5) /lpf Urine Bacteria (Auto) (Negative) Ur Renal Epithelial Cell Urine Opiates Screen (Neg) Ur Methadone, Qual (Neg) Urine Barbiturates (Neg) Ur Phencyclidine (PCP) (Neg) U Amphetamin/Meth Scrn (Neg) MDMA (Ecstasy) Screen (Neg) U Benzodiazepines Scrn (Neg) Ur Cocaine Metabolite (Neg) U Marijuana (THC) Screen (Neg) Ethyl Alcohol mg/dL (0-3) mg/dl COVID-19 Eval Order SARS-CoV-2 (PCR) (Negative) 03/09/21 03/09/21 03/08/21 Range/Units 05:23 00:25 23:36 WBC (4.8-10.8) K/uL RBC (4.7-6.1) M/uL Hgb (14.0-18.0) g/dL Hct (42-52) % MCV (80-100) fL MCH (25-34) pg MCHC (32-36) g/dL RDW Std Deviation (36.4-46.3) fL RDW Coeff of Antonio (11.5-14.5) % Plt Count (130-400) K/uL MPV (7.4-10.4) fL Immature Gran % (Auto) % Neut % (Auto) % Lymph % (Auto) % Rankin % (Auto) % Eos % (Auto) % Baso % (Auto) % Neut # (Auto) (1.4-6.5) K/uL Lymph # (Auto) (1.2-3.4) K/uL Rankin # (Auto) (0.11-0.59) K/uL Eos # (Auto) (0-0.5) K/uL Baso # (Auto) (0-0.2) K/uL Immature Gran # (Auto) (0.00-0.02) K/uL Platelet Estimate (Normal) PT (9.0-12.0) Seconds INR (0.9-1.1) APTT (21.0-31.0) Seconds PTT Ratio Sodium 141 (136-145) mmol/L Potassium 3.4 L (3.5-5.1) mmol/L Chloride 108 H (98-107) mmol/L Carbon Dioxide 29 (21-32) mmol/L Anion Gap 4.0 (3-11) BUN 9 (7-18) mg/dl Creatinine 0.61 (0.6-1.4) mg/dl Est Cr Clr Drug Dosing 163.6 Est GFR ( Amer) 124.0 ml/min Est GFR (Non-Af Amer) 107.0 ml/min BUN/Creatinine Ratio 15.6 (10-20) Glucose 91 (70-99) mg/dl POC Glucose (70-99) mg/dl Estimat Average Glucose mg/dl Hemoglobin A1c (4.5-5.6) % Calcium 7.4 L (8.5-10.1) mg/dl Phosphorus (2.5-4.9) mg/dl Magnesium (1.8-2.4) mg/dl Total Bilirubin 0.6 (0.2-1) mg/dl Direct Bilirubin (0-0.2) mg/dl AST 146 H (15-37) U/L ALT 57 (12-78) U/L Alkaline Phosphatase 62 (45-117) U/L Total Creatine Kinase (39-308) U/L Troponin I (0-0.045) ng/ml Total Protein 6.1 L (6.4-8.2) gm/dl Albumin 2.9 L (3.4-5.0) gm/dl Globulin 3.2 (2.5-4.0) gm/dl Albumin/Globulin Ratio 0.9 (0.9-2) Triglycerides (0-150) mg/dl Cholesterol (0-200) mg/dl LDL Cholesterol, Calc mg/dl VLDL Cholesterol, Calc mg/dl HDL Cholesterol mg/dl Cholesterol/HDL Ratio Lipase (73-393) U/L Vitamin B12 323 (193-986) pg/ml Folate > 20.00 (>5.38) ng/ml TSH (0.300-4.500) uIu/ml Urine Color Urine Appearance (Clear) Urine pH (4.5-7.5) Ur Specific [place] Level (1.000-1.030) Urine Protein (Negative) Urine Glucose (UA) (Negative) Urine Ketones (Negative) Urine Blood (Negative) Urine Nitrite (Negative) Urine Bilirubin (Negative) Urine Urobilinogen (Negative) Ur Leukocyte Esterase (Negative) Urine WBC (Auto) (0-5) /hpf Urine RBC (Auto) (0-4) /hpf U Hyaline Cast (Auto) (0-5) /lpf U Epithel Cells (Auto) (0-5) /lpf Urine Bacteria (Auto) (Negative) Ur Renal Epithelial Cell Urine Opiates Screen Neg (Neg) Ur Methadone, Qual Neg (Neg) Urine Barbiturates Neg (Neg) Ur Phencyclidine (PCP) Neg (Neg) U Amphetamin/Meth Scrn Neg (Neg) MDMA (Ecstasy) Screen Neg (Neg) U Benzodiazepines Scrn Neg (Neg) Ur Cocaine Metabolite Neg (Neg) U Marijuana (THC) Screen Neg (Neg) Ethyl Alcohol mg/dL (0-3) mg/dl COVID-19 Eval Order SARS-CoV-2 (PCR) (Negative) 03/08/21 03/08/21 03/08/21 Range/Units 23:36 23:36 23:36 WBC 2.74 L (4.8-10.8) K/uL RBC 3.70 L (4.7-6.1) M/uL Hgb 12.1 L (14.0-18.0) g/dL Hct 34.3 L (42-52) % MCV 92.7 (80-100) fL MCH 32.7 (25-34) pg MCHC 35.3 (32-36) g/dL RDW Std Deviation 47.6 H (36.4-46.3) fL RDW Coeff of Antonio 14.1 (11.5-14.5) % Plt Count 99 L (130-400) K/uL MPV 9.3 (7.4-10.4) fL Immature Gran % (Auto) 0.7 % Neut % (Auto) 61.3 % Lymph % (Auto) 24.5 % Rankin % (Auto) 6.9 % Eos % (Auto) 5.5 % Baso % (Auto) 1.1 % Neut # (Auto) 1.68 (1.4-6.5) K/uL Lymph # (Auto) 0.67 L (1.2-3.4) K/uL Rankin # (Auto) 0.19 (0.11-0.59) K/uL Eos # (Auto) 0.15 (0-0.5) K/uL Baso # (Auto) 0.03 (0-0.2) K/uL Immature Gran # (Auto) 0.02 (0.00-0.02) K/uL Platelet Estimate Decreased L (Normal) PT 10.9 (9.0-12.0) Seconds INR 1.1 (0.9-1.1) APTT (21.0-31.0) Seconds PTT Ratio Sodium 139 (136-145) mmol/L Potassium 3.2 L (3.5-5.1) mmol/L Chloride 106 (98-107) mmol/L Carbon Dioxide 25 (21-32) mmol/L Anion Gap 9.0 (3-11) BUN 9 (7-18) mg/dl Creatinine 0.64 (0.6-1.4) mg/dl Est Cr Clr Drug Dosing 155.9 Est GFR ( Amer) 121.6 ml/min Est GFR (Non-Af Amer) 104.9 ml/min BUN/Creatinine Ratio 14.4 (10-20) Glucose 90 (70-99) mg/dl POC Glucose (70-99) mg/dl Estimat Average Glucose mg/dl Hemoglobin A1c (4.5-5.6) % Calcium 7.7 L (8.5-10.1) mg/dl Phosphorus (2.5-4.9) mg/dl Magnesium (1.8-2.4) mg/dl Total Bilirubin 0.4 (0.2-1) mg/dl Direct Bilirubin 0.3 H (0-0.2) mg/dl AST 150 H (15-37) U/L ALT 58 (12-78) U/L Alkaline Phosphatase 67 (45-117) U/L Total Creatine Kinase (39-308) U/L Troponin I (0-0.045) ng/ml Total Protein 6.2 L (6.4-8.2) gm/dl Albumin 2.9 L (3.4-5.0) gm/dl Globulin 3.3 (2.5-4.0) gm/dl Albumin/Globulin Ratio 0.9 (0.9-2) Triglycerides (0-150) mg/dl Cholesterol (0-200) mg/dl LDL Cholesterol, Calc mg/dl VLDL Cholesterol, Calc mg/dl HDL Cholesterol mg/dl Cholesterol/HDL Ratio Lipase (73-393) U/L Vitamin B12 (193-986) pg/ml Folate (>5.38) ng/ml TSH (0.300-4.500) uIu/ml Urine Color Urine Appearance (Clear) Urine pH (4.5-7.5) Ur Specific [place] Level (1.000-1.030) Urine Protein (Negative) Urine Glucose (UA) (Negative) Urine Ketones (Negative) Urine Blood (Negative) Urine Nitrite (Negative) Urine Bilirubin (Negative) Urine Urobilinogen (Negative) Ur Leukocyte Esterase (Negative) Urine WBC (Auto) (0-5) /hpf Urine RBC (Auto) (0-4) /hpf U Hyaline Cast (Auto) (0-5) /lpf U Epithel Cells (Auto) (0-5) /lpf Urine Bacteria (Auto) (Negative) Ur Renal Epithelial Cell Urine Opiates Screen (Neg) Ur Methadone, Qual (Neg) Urine Barbiturates (Neg) Ur Phencyclidine (PCP) (Neg) U Amphetamin/Meth Scrn (Neg) MDMA (Ecstasy) Screen (Neg) U Benzodiazepines Scrn (Neg) Ur Cocaine Metabolite (Neg) U Marijuana (THC) Screen (Neg) Ethyl Alcohol mg/dL (0-3) mg/dl COVID-19 Eval Order SARS-CoV-2 (PCR) (Negative) 03/08/21 03/08/21 03/08/21 Range/Units 20:10 20:10 20:10 WBC (4.8-10.8) K/uL RBC (4.7-6.1) M/uL Hgb (14.0-18.0) g/dL Hct (42-52) % MCV (80-100) fL MCH (25-34) pg MCHC (32-36) g/dL RDW Std Deviation (36.4-46.3) fL RDW Coeff of Antonio (11.5-14.5) % Plt Count (130-400) K/uL MPV (7.4-10.4) fL Immature Gran % (Auto) % Neut % (Auto) % Lymph % (Auto) % Rankin % (Auto) % Eos % (Auto) % Baso % (Auto) % Neut # (Auto) (1.4-6.5) K/uL Lymph # (Auto) (1.2-3.4) K/uL Rankin # (Auto) (0.11-0.59) K/uL Eos # (Auto) (0-0.5) K/uL Baso # (Auto) (0-0.2) K/uL Immature Gran # (Auto) (0.00-0.02) K/uL Platelet Estimate (Normal) PT (9.0-12.0) Seconds INR (0.9-1.1) APTT (21.0-31.0) Seconds PTT Ratio Sodium (136-145) mmol/L Potassium (3.5-5.1) mmol/L Chloride (98-107) mmol/L Carbon Dioxide (21-32) mmol/L Anion Gap (3-11) BUN (7-18) mg/dl Creatinine (0.6-1.4) mg/dl Est Cr Clr Drug Dosing Est GFR ( Amer) ml/min Est GFR (Non-Af Amer) ml/min BUN/Creatinine Ratio (10-20) Glucose (70-99) mg/dl POC Glucose (70-99) mg/dl Estimat Average Glucose mg/dl Hemoglobin A1c (4.5-5.6) % Calcium (8.5-10.1) mg/dl Phosphorus (2.5-4.9) mg/dl Magnesium (1.8-2.4) mg/dl Total Bilirubin (0.2-1) mg/dl Direct Bilirubin (0-0.2) mg/dl AST (15-37) U/L ALT (12-78) U/L Alkaline Phosphatase (45-117) U/L Total Creatine Kinase (39-308) U/L Troponin I (0-0.045) ng/ml Total Protein (6.4-8.2) gm/dl Albumin (3.4-5.0) gm/dl Globulin (2.5-4.0) gm/dl Albumin/Globulin Ratio (0.9-2) Triglycerides (0-150) mg/dl Cholesterol (0-200) mg/dl LDL Cholesterol, Calc mg/dl VLDL Cholesterol, Calc mg/dl HDL Cholesterol mg/dl Cholesterol/HDL Ratio Lipase (73-393) U/L Vitamin B12 (193-986) pg/ml Folate (>5.38) ng/ml TSH (0.300-4.500) uIu/ml Urine Color Yellow Urine Appearance Clear (Clear) Urine pH 7.0 (4.5-7.5) Ur Specific [place] Level 1.016 (1.000-1.030) Urine Protein Negative (Negative) Urine Glucose (UA) 3+ H (Negative) Urine Ketones Negative (Negative) Urine Blood 2+ H (Negative) Urine Nitrite Negative (Negative) Urine Bilirubin Negative (Negative) Urine Urobilinogen Negative (Negative) Ur Leukocyte Esterase Negative (Negative) Urine WBC (Auto) 1-5 (0-5) /hpf Urine RBC (Auto) >30 H (0-4) /hpf U Hyaline Cast (Auto) 1-5 (0-5) /lpf U Epithel Cells (Auto) >30 H (0-5) /lpf Urine Bacteria (Auto) Negative (Negative) Ur Renal Epithelial Cell Not Reportable Urine Opiates Screen (Neg) Ur Methadone, Qual (Neg) Urine Barbiturates (Neg) Ur Phencyclidine (PCP) (Neg) U Amphetamin/Meth Scrn (Neg) MDMA (Ecstasy) Screen (Neg) U Benzodiazepines Scrn (Neg) Ur Cocaine Metabolite (Neg) U Marijuana (THC) Screen (Neg) Ethyl Alcohol mg/dL (0-3) mg/dl COVID-19 Eval Order Covid19 at [facility] SARS-CoV-2 (PCR) NEGATIVE (Negative) 03/08/21 03/08/21 03/08/21 Range/Units 19:30 19:00 19:00 WBC (4.8-10.8) K/uL RBC (4.7-6.1) M/uL Hgb (14.0-18.0) g/dL Hct (42-52) % MCV (80-100) fL MCH (25-34) pg MCHC (32-36) g/dL RDW Std Deviation (36.4-46.3) fL RDW Coeff of Antonio (11.5-14.5) % Plt Count (130-400) K/uL MPV (7.4-10.4) fL Immature Gran % (Auto) % Neut % (Auto) % Lymph % (Auto) % Rankin % (Auto) % Eos % (Auto) % Baso % (Auto) % Neut # (Auto) (1.4-6.5) K/uL Lymph # (Auto) (1.2-3.4) K/uL Rankin # (Auto) (0.11-0.59) K/uL Eos # (Auto) (0-0.5) K/uL Baso # (Auto) (0-0.2) K/uL Immature Gran # (Auto) (0.00-0.02) K/uL Platelet Estimate (Normal) PT (9.0-12.0) Seconds INR (0.9-1.1) APTT (21.0-31.0) Seconds PTT Ratio Sodium (136-145) mmol/L Potassium (3.5-5.1) mmol/L Chloride (98-107) mmol/L Carbon Dioxide (21-32) mmol/L Anion Gap (3-11) BUN (7-18) mg/dl Creatinine (0.6-1.4) mg/dl Est Cr Clr Drug Dosing Est GFR ( Amer) ml/min Est GFR (Non-Af Amer) ml/min BUN/Creatinine Ratio (10-20) Glucose (70-99) mg/dl POC Glucose (70-99) mg/dl Estimat Average Glucose 123 mg/dl Hemoglobin A1c 5.9 H (4.5-5.6) % Calcium (8.5-10.1) mg/dl Phosphorus (2.5-4.9) mg/dl Magnesium (1.8-2.4) mg/dl Total Bilirubin (0.2-1) mg/dl Direct Bilirubin (0-0.2) mg/dl AST (15-37) U/L ALT (12-78) U/L Alkaline Phosphatase (45-117) U/L Total Creatine Kinase (39-308) U/L Troponin I (0-0.045) ng/ml Total Protein (6.4-8.2) gm/dl Albumin (3.4-5.0) gm/dl Globulin (2.5-4.0) gm/dl Albumin/Globulin Ratio (0.9-2) Triglycerides 199 H (0-150) mg/dl Cholesterol 129 (0-200) mg/dl LDL Cholesterol, Calc 35 mg/dl VLDL Cholesterol, Calc 40 mg/dl HDL Cholesterol 54 mg/dl Cholesterol/HDL Ratio 2 Lipase (73-393) U/L Vitamin B12 (193-986) pg/ml Folate (>5.38) ng/ml TSH (0.300-4.500) uIu/ml Urine Color Urine Appearance (Clear) Urine pH (4.5-7.5) Ur Specific [place] Level (1.000-1.030) Urine Protein (Negative) Urine Glucose (UA) (Negative) Urine Ketones (Negative) Urine Blood (Negative) Urine Nitrite (Negative) Urine Bilirubin (Negative) Urine Urobilinogen (Negative) Ur Leukocyte Esterase (Negative) Urine WBC (Auto) (0-5) /hpf Urine RBC (Auto) (0-4) /hpf U Hyaline Cast (Auto) (0-5) /lpf U Epithel Cells (Auto) (0-5) /lpf Urine Bacteria (Auto) (Negative) Ur Renal Epithelial Cell Urine Opiates Screen (Neg) Ur Methadone, Qual (Neg) Urine Barbiturates (Neg) Ur Phencyclidine (PCP) (Neg) U Amphetamin/Meth Scrn (Neg) MDMA (Ecstasy) Screen (Neg) U Benzodiazepines Scrn (Neg) Ur Cocaine Metabolite (Neg) U Marijuana (THC) Screen (Neg) Ethyl Alcohol mg/dL 195.0 H (0-3) mg/dl COVID-19 Eval Order SARS-CoV-2 (PCR) (Negative) 03/08/21 03/08/21 03/08/21 Range/Units 19:00 19:00 19:00 WBC 4.56 L (4.8-10.8) K/uL RBC 3.94 L (4.7-6.1) M/uL Hgb 13.0 L (14.0-18.0) g/dL Hct 36.5 L (42-52) % MCV 92.6 (80-100) fL MCH 33.0 (25-34) pg MCHC 35.6 (32-36) g/dL RDW Std Deviation 46.9 H (36.4-46.3) fL RDW Coeff of Antonio 13.9 (11.5-14.5) % Plt Count 160 (130-400) K/uL MPV 9.5 (7.4-10.4) fL Immature Gran % (Auto) 0.4 % Neut % (Auto) 58.3 % Lymph % (Auto) 27.9 % Rankin % (Auto) 9.9 % Eos % (Auto) 3.1 % Baso % (Auto) 0.4 % Neut # (Auto) 2.66 (1.4-6.5) K/uL Lymph # (Auto) 1.27 (1.2-3.4) K/uL Rankin # (Auto) 0.45 (0.11-0.59) K/uL Eos # (Auto) 0.14 (0-0.5) K/uL Baso # (Auto) 0.02 (0-0.2) K/uL Immature Gran # (Auto) 0.02 (0.00-0.02) K/uL Platelet Estimate (Normal) PT 10.3 (9.0-12.0) Seconds INR 1.0 (0.9-1.1) APTT 24.8 (21.0-31.0) Seconds PTT Ratio 0.9 Sodium 137 (136-145) mmol/L Potassium 3.2 L (3.5-5.1) mmol/L Chloride 101 (98-107) mmol/L Carbon Dioxide 27 (21-32) mmol/L Anion Gap 9.0 (3-11) BUN 11 (7-18) mg/dl Creatinine 0.83 (0.6-1.4) mg/dl Est Cr Clr Drug Dosing Not Reportable Est GFR ( Amer) 109.3 ml/min Est GFR (Non-Af Amer) 94.3 ml/min BUN/Creatinine Ratio 13.3 (10-20) Glucose 101 H (70-99) mg/dl POC Glucose (70-99) mg/dl Estimat Average Glucose mg/dl Hemoglobin A1c (4.5-5.6) % Calcium 8.2 L (8.5-10.1) mg/dl Phosphorus 2.5 (2.5-4.9) mg/dl Magnesium 1.6 L (1.8-2.4) mg/dl Total Bilirubin 0.4 (0.2-1) mg/dl Direct Bilirubin 0.2 (0-0.2) mg/dl AST 179 H (15-37) U/L ALT 70 (12-78) U/L Alkaline Phosphatase 76 (45-117) U/L Total Creatine Kinase 217 (39-308) U/L Troponin I < 0.015 (0-0.045) ng/ml Total Protein 7.3 (6.4-8.2) gm/dl Albumin 3.4 (3.4-5.0) gm/dl Globulin 3.9 (2.5-4.0) gm/dl Albumin/Globulin Ratio 0.9 (0.9-2) Triglycerides (0-150) mg/dl Cholesterol (0-200) mg/dl LDL Cholesterol, Calc mg/dl VLDL Cholesterol, Calc mg/dl HDL Cholesterol mg/dl Cholesterol/HDL Ratio Lipase 339 (73-393) U/L Vitamin B12 (193-986) pg/ml Folate (>5.38) ng/ml TSH 2.160 (0.300-4.500) uIu/ml Urine Color Urine Appearance (Clear) Urine pH (4.5-7.5) Ur Specific [place] (1.000-1.030) Urine Protein (Negative) Urine Glucose (UA) (Negative) Urine Ketones (Negative) Urine Blood (Negative) Urine Nitrite (Negative) Urine Bilirubin (Negative) Urine Urobilinogen (Negative) Ur Leukocyte Esterase (Negative) Urine WBC (Auto) (0-5) /hpf Urine RBC (Auto) (0-4) /hpf U Hyaline Cast (Auto) (0-5) /lpf U Epithel Cells (Auto) (0-5) /lpf Urine Bacteria (Auto) (Negative) Ur Renal Epithelial Cell Urine Opiates Screen (Neg) Ur Methadone, Qual (Neg) Urine Barbiturates (Neg) Ur Phencyclidine (PCP) (Neg) U Amphetamin/Meth Scrn (Neg) MDMA (Ecstasy) Screen (Neg) U Benzodiazepines Scrn (Neg) Ur Cocaine Metabolite (Neg) U Marijuana (THC) Screen (Neg) Ethyl Alcohol mg/dL (0-3) mg/dl COVID-19 Eval Order SARS-CoV-2 (PCR) (Negative) Diagnostic Findings Brain MRI 03/09/21 10:17 Brain MRI WITH AND WITHOUT CONTRAST HISTORY: Loss of consciousness, left carotid stenosis, confusion TECHNIQUE: Multiplanar multisequence MRI of the brain was performed both before and after the intravenous administration of contrast. COMPARISON STUDY: Head CT 03/08/2021. Brain MRI 03/26/2020. FINDINGS: No areas of restricted diffusion to suggest acute infarction. The midline structures are intact. The orbits are unremarkable. Mild mucosal thickening within the paranasal sinuses. The mastoid air cells are essentially clear. The major vascular flow voids at the skull base are well-maintained. The ventricles and sulci demonstrate mild age-related involutional changes. There is no mass, hematoma, midline shift. There are few scattered punctate foci of T2 hyperintensity seen within the periventricular white matter of the supratentorial brain. These are nonspecific but favor mild microvascular ischemic change. This is similar to the prior study. The temporal lobes are symmetric. Stable mild smooth bifrontal pachymeningeal enhancement. IMPRESSION: No significant change compared to the prior study. No acute intracranial abnormality. ACT 112: Negative or not required by law. Electronically signed by: Luciano Chaney M.D. 03/09/2021 1:58 PM PG Care Time/CCT Total # of Minutes Spent Total Time Spent with Patient: Total time spent is greater than 50% in coordination of care (as documented) at patient's floor/unit and/or counseling patient: Coding Level of Care Code 71769 Subseq Hosp Care Lvl 3 Diagnoses Unwitnessed fall R29.6 Alcohol withdrawal delirium F10.231 Diabetes E11.9 Anxiety F41.9 Major depression, recurrent F33.9 Hyperlipidemia E78.5 Hyperlipidemia type: unspecified Hypertension I10 Hypertension type: essential hypertension Alcoholic hepatitis K70.10 Laceration of tragus of right ear S01.311A Encounter type: initial encounter RLS (restless legs syndrome) G25.81 Seizure disorder G40.909 Carotid artery stenosis I65.29 Hypokalemia E87.6 Hypomagnesemia E83.42 Headache R51.9 Alcohol intoxication F10.929 EtOH dependence F10.20 Substance use status: uncomplicated Vitamin B12 deficiency E53.8 DVT prophylaxis Z29.9 (1) EtOH dependence Substance use status: uncomplicated Qualified Code(s): F10.20 - Alcohol dependence, uncomplicated (2) Hyperlipidemia Hyperlipidemia type: unspecified Qualified Code(s): E78.5 - Hyperlipidemia, unspecified (3) Hypertension Hypertension type: essential hypertension Qualified Code(s): I10 - Essential (primary) hypertension (4) Laceration of tragus of right ear Encounter type: initial encounter Qualified Code(s): S01.311A - Laceration without foreign body of right ear, initial encounter
[2021-03-09] MEDS ORDERED: GADOBUTROL 65ML VIAL IV ONE (13:41)
--- NOTE | 2021-03-09 14:00 | Magnetic Resonance Report ---
Brain MRI WITH AND WITHOUT CONTRAST HISTORY: Loss of consciousness, left carotid stenosis, confusion TECHNIQUE: Multiplanar multisequence MRI of the brain was performed both before and after the intrave nous administration of contrast. COMPARISON STUDY: Head CT 03/08/2021. Brain MRI 03/26/2020. FINDINGS: No areas of restricted diffusion to suggest acute infarction. The midline structures are in tact. The orbits are unremarkable. Mild mucosal thickening within the paranasal sinuses. The mastoid air cells are essentially clear. The major vascular flow voids at the skull base are well-maintained. The ventricles and sulci demonstrate mild age-related involutional changes. There is no mass, hemato ma, midline shift. There are few scattered punctate foci of T2 hyperintensity seen within the periven tricular white matter of the supratentorial brain. These are nonspecific but favor mild microvascular ischemic change. This is similar to the prior study. The temporal lobes are symmetric. Stable mild s mooth bifrontal pachymeningeal enhancement. IMPRESSION: No significant change compared to the prior study. No acute intracranial abnormality. ACT 112: Negative or not required by law. Electronically signed by: Luciano Chaney M.D. 03/09/2021 1:58 PM
[2021-03-09] MEDS ORDERED: LORazepam 1 MG/2 ML VIAL IV PRN (17:47)
[2021-03-09] MEDS ORDERED: INSULIN ASPART 100 UNITS/ML 3 ML PEN SC SCH (18:00)
--- NOTE | 2021-03-09 18:35 | Electrocardiogram Report ---
Test Reason : Blood Pressure : / mmHG Vent. Rate : 076 BPM Atrial Rate : 076 BPM P-R Int : 144 ms QRS Dur : 094 ms QT Int : 414 ms P-R-T Axes : 056 033 041 degrees QTc Int : 465 ms Normal sinus rhythm Normal ECG When compared with ECG of 25-MAR-2020 17:30, No significant change was found Confirmed by Timothy Rojas ([id number]) on 03/09/2021 6:35:20 PM Referred By: REFERRED SELF Confirmed By:Moreno Rojas
[2021-03-09] MEDS ORDERED: rOPINIRole HCL 0.25 MG TABLET PO SCH (21:00)
[2021-03-09] MEDS: MIRTAZAPINE TAB 15 MG TAB PO SCH (21:04)
[2021-03-09] MEDS: FENOFIBRATE NANOCRYSTALLIZED 145 MG TABLET PO SCH (21:05)
[2021-03-09] MEDS: ATORVASTATIN 40 MG TAB PO SCH (21:05)
[2021-03-10 07:05] LABS: BUN Creatinine Ratio 12.6 (10-20); Calcium 7.9 mg/dl (8.5-10.1); Creatinine Clr Calc Pharmacy 133.7 ml/min; Est GFR (African American) 114.6 ml/min; Est GFR (Non-African American) 98.9 ml/min; Magnesium 1.3 mg/dl (1.8-2.4); Potassium 3.2 mmol/L (3.5-5.1)
[2021-03-10] MEDS: POLYETHYLENE (MIRALAX) 17 GM PACK PO SCH (08:23)
[2021-03-10] MEDS: ENOXAPARIN INJ 40 MG/0.4 ML SYR SQ SCH (08:24)
[2021-03-10] MEDS: FOLIC ACID 1 MG in SYRINGE 9.8 ML IV SCH (08:24)
[2021-03-10] MEDS: CITALOPRAM 40 MG TAB PO SCH (08:24)
[2021-03-10] MEDS: ASPIRIN 81 MG ECTAB PO SCH (08:24)
[2021-03-10] MEDS: THIAMINE HCL 100 MG in SYRINGE 9 ML IV SCH (08:24)
[2021-03-10 08:25] LABS: Albumin Level 2.8 gm/dl (3.4-5.0); Bilirubin Direct 0.2 mg/dl (0-0.2); Bilirubin,Total 0.5 mg/dl (0.2-1); Total Protein 6.3 gm/dl (6.4-8.2)
[2021-03-10] MEDS: OLMESARTAN MEDOXOMIL 5 MG TAB PO SCH (08:25)
[2021-03-10] MEDS: busPIRone 15 MG TAB PO PRN (08:25)
[2021-03-10] MEDS: INSULIN ASPART 100 UNITS/ML 3 ML PEN SC SCH ×4 (08:25→20:54)
[2021-03-10] MEDS: PANTOprazole 40 MG TAB PO SCH (08:25)
[2021-03-10] MEDS: TOPIRAMATE 50 MG TAB PO SCH ×2 (08:25→20:53)
[2021-03-10] MEDS: MAGNESIUM SULFATE / D5W 1 GM/100 ML BAG IV SCH ×3 (09:09→11:51)
[2021-03-10] MEDS ORDERED: POTASSIUM CHLORIDE CRTAB 20 MEQ TABCR PO ONE (10:30)
--- NOTE | 2021-03-10 19:03 | Hospitalist Progress Note ---
Date of Service March 10, 2021 Assessment & Plan (1) Unwitnessed fall: 60 yo M with an extensive hx of alcohol abuse and dependence, seizure disorder secondary to history of SDH, RLS, carotid artery stenosis, HLD, DM2, HTN, Recurrent uncontrolled anxiety and depression who is admitted for fall and acute encephalopathy secondary to ETOH intoxication and withdrawal. Fall - unwitnessed, found to have bleeding from right ear 2/2 external laceration of tragus. Sutured by Dr. Lyn in ER. - likely secondary to alcohol intoxication given BAL of 195 on admission (prev as high as 247) - CT Head wo con and CT C-spine negative for acute bleed, bony fracture - CTA Head and Neck negative for acute cva -Appreciate neurology consultation-brain MRI performed and is without acute changes. No need for EEG and he does not suspect this is a seizure but more likely secondary to alcohol intoxication and withdrawal -PT/OT consultations appreciated-recommend home as he is ambulating without difficulty -Neurology also recommended discontinuing ropinirole as this can cause orthostatic hypotension and did present with some hypotension on admission (2) Alcohol withdrawal delirium: Alcohol Dependence and withdrawal - hx of dependence traces back to diagnosis of prostate cancer and retiring 5 years ago. Per , drinking has gotten worse and worse since then despite multiple rehab stays, AA, support. - AWSS protocol with prn ativan - loaded with 20 mg IV valium to prevent DT and decrease need for prn benzodiazepines and receiving as needed IV Ativan-last dose on 03/09 -Continue fall precautions -Can discontinue one-on-one -Continue daily folate and thiamine but convert to p.o. - folate normal and B12 mildly low - urine drug screen negative -Patient is not interested in inpatient alcohol rehab-he feels he is in a family support and knowledge from previous rehab stays to achieve abstinence on his own -If stable by tomorrow without further withdrawal symptoms or need for Ativan, will discharge to home (3) Diabetes: DM2: on metformin and jardiance at home. SSI, carb consistent diet. A1c 5.9% very well controlled (4) Anxiety: Anxiety and Depression with hx suicidal ideation and plan-none currently and feels his mood is a bit anxious but not depressed - cont buspar and make it scheduled as per patient's request rather than as needed, continue citalopram, mirtazapine for mood stability. - per chart review, previously has been on lamictal and seroquel but has been noncompliant with taking medications, feeling better when he takes them but frequently not. (5) Major depression, recurrent: As above Follows with outpatient psychiatry (6) Hyperlipidemia: HLD/L carotid artery stenosis: Patient does fill prescriptions for both atorvastatin and rosuvastatin as an outpatient -Discontinue rosuvastatin and continue atorvastatin -Cont fenofibrate and ASA. Trig 199, LDL 35, HDL 54. (7) Hypertension: Blood pressures controlled Cont olmesartan (8) Alcoholic hepatitis: - AST/ALT 2:1 in pattern with alcohol induced liver damage - INR, Platelet function still WNL - noted leukopenia and anemia with borderline elevated MCV (92) likely from alcoholic suppression of bone marrow - outpatient evaluation with US for hepatic fibrosis reasonable LFTs are continuing to improve Follow LFTs in the morning (9) Laceration of tragus of right ear: Sutured in the ER Sutures remain in place with scant bloody drainage, mild edema of the ear but no evidence of infection Will need suture removal in 7 to 10 days Ordered for wound care with daily OPTi foam dressing to be changed (10) RLS (restless legs syndrome): Neurology recommended discontinuation of ropinirole as above for possible orthostasis (11) Seizure disorder: History of seizures in the setting of subdural hematomas but has since been weaned off all seizure medication He takes Topamax for chronic headaches (12) Carotid artery stenosis: Moderate stenosis bilaterally with one area of 75% on the left Continue statin, aspirin No evidence of stroke on MRI here Patient has a left CEA planned on March 27 (13) Hypokalemia: Replaced upon admission and continues to be low today Give potassium chloride 40 mEq today and replacing magnesium Follow BMP and magnesium in the morning (14) Hypomagnesemia: Continues to be quite low today at 1.3 Replace with 3 g of IV magnesium sulfate Follow level in the morning (15) Headache: Has a history of chronic migraines on Topamax Also with a headache here due to head trauma from fall and ear laceration CT head and MRI brain without intracranial hemorrhage Tylenol as needed (16) Alcohol intoxication: As above Encourage cessation Watch for withdrawal (17) EtOH dependence: As above (18) Vitamin B12 deficiency: B12 level borderline low at 323 Replaced with cyanocobalamin 1000 mcg IM x1 (19) DVT prophylaxis: Lovenox Disposition-continued stay on telemetry, but likely discharged home tomorrow if electrolytes are improved and mentation continues to improve and if not having any further withdrawal symptoms are requiring IV Ativan PT/OT consultations recommend home Discussed his care with his on the phone on 03/09 and 03/10 Admission and Anticipated Discharge Date Admission Date: March 08, 2021 Subjective Patient feels much better today. Is clear with his speech and mentation. He is eating and drinking, denies nausea or vomiting, no lightheadedness. No headache. Denies any diarrhea or constipation. He is making urine. He is ambulating around the halls with physical therapy. He was anxious last night as he feels he likes to be in control of when he takes his medications. He reports that he does not want to go to inpatient alcohol rehab; he reports that he has a lot of support at home and he knows what he needs to do. He reports that he will be sober for for 5 months at a time and then he will start drinking 2 or 3 drinks a day which he reports he can manage, but then if something goes wrong, he tends to start drinking more heavily. I discussed his care with his on the phone at his request and all are in agreement that he should stay at least 1 more night to make sure that his withdrawal from alcohol is completely treated and that his electrolyte abnormalities are improved. He did receive Ativan last night. Telemetry with normal sinus rhythm, rates in the 50s to 60s, PVCs. Review of Systems Review of Systems: All systems reviewed & are unremarkable except as noted in HPI & below Denies depression Physical Exam Constitutional: WD/WN, vitals as above Eyes: + anicteric sclerae ENMT: Ears: + external ear abnormality (Rt ear tragus with sutures in place with scant bloody drainage, mild edema); no hearing impairment Neck: trachea midline, no thyromegaly Respiratory: normal respiratory effort, lungs clear to auscultation Cardiovascular: RRR, no murmur, no edema Chest (Breasts): Chest: normal inspection of chest Gastrointestinal (Abdomen): normal bowel sounds, soft, nontender, no hepatosplenomegaly Musculoskeletal: Extremities: extremities normal to inspection; no cyanosis and no clubbing Skin: no rashes, warm and dry Neurologic: moves all extremities and awake; no focal motor deficits Psychiatric: Orientation: alert, oriented x 3 and cooperative Speech: normal rate/rhythm/volume of speech Affect: euthymic affect Lymphatic: no lymphedema Results & Data Results & Data ([facility]) Vital Signs (Past 12 Hours) Vital Signs Temp Pulse Pulse Resp BP Pulse Ox 03/10/21 15:26 95 03/10/21 15:14 67 03/10/21 15:09 36.6 C 63 19 130/80 96 03/10/21 11:29 36.5 C 65 21 130/79 99 03/10/21 07:16 36.8 C 59 L 18 128/72 98 03/10/21 07:12 61 Laboratory Results 03/10/21 03/10/21 03/10/21 Range/Units 16:17 11:17 07:21 Sodium (136-145) mmol/L Potassium (3.5-5.1) mmol/L Chloride (98-107) mmol/L Carbon Dioxide (21-32) mmol/L Anion Gap (3-11) BUN (7-18) mg/dl Creatinine (0.6-1.4) mg/dl Est Cr Clr Drug Dosing ml/min Est GFR ( Amer) ml/min Est GFR (Non-Af Amer) ml/min BUN/Creatinine Ratio (10-20) Glucose (70-99) mg/dl POC Glucose 113 H 127 H 114 H (70-99) mg/dl Calcium (8.5-10.1) mg/dl Magnesium (1.8-2.4) mg/dl Total Bilirubin (0.2-1) mg/dl Direct Bilirubin (0-0.2) mg/dl AST (15-37) U/L ALT (12-78) U/L Alkaline Phosphatase (45-117) U/L Total Protein (6.4-8.2) gm/dl Albumin (3.4-5.0) gm/dl 03/10/21 03/10/21 03/09/21 Range/Units 06:22 06:22 20:50 Sodium 142 (136-145) mmol/L Potassium 3.2 L (3.5-5.1) mmol/L Chloride 113 H (98-107) mmol/L Carbon Dioxide 21 (21-32) mmol/L Anion Gap 8.0 (3-11) BUN 9 (7-18) mg/dl Creatinine 0.74 (0.6-1.4) mg/dl Est Cr Clr Drug Dosing 133.7 ml/min Est GFR ( Amer) 114.6 ml/min Est GFR (Non-Af Amer) 98.9 ml/min BUN/Creatinine Ratio 12.6 (10-20) Glucose 105 H (70-99) mg/dl POC Glucose 138 H (70-99) mg/dl Calcium 7.9 L (8.5-10.1) mg/dl Magnesium 1.3 L (1.8-2.4) mg/dl Total Bilirubin 0.5 (0.2-1) mg/dl Direct Bilirubin 0.2 (0-0.2) mg/dl AST 112 H (15-37) U/L ALT 52 (12-78) U/L Alkaline Phosphatase 70 (45-117) U/L Total Protein 6.3 L (6.4-8.2) gm/dl Albumin 2.8 L (3.4-5.0) gm/dl PG Care Time/CCT Total # of Minutes Spent Total Time Spent with Patient: Total time spent is greater than 50% in coordination of care (as documented) at patient's floor/unit and/or counseling patient: Coding Level of Care Code 60379 Subseq Hosp Care Lvl 3 Diagnoses Unwitnessed fall R29.6 Alcohol withdrawal delirium F10.231 Diabetes E11.9 Anxiety F41.9 Major depression, recurrent F33.9 Hyperlipidemia E78.5 Hyperlipidemia type: unspecified Hypertension I10 Hypertension type: essential hypertension Alcoholic hepatitis K70.10 Laceration of tragus of right ear S01.311A Encounter type: initial encounter RLS (restless legs syndrome) G25.81 Seizure disorder G40.909 Carotid artery stenosis I65.29 Hypokalemia E87.6 Hypomagnesemia E83.42 Headache R51.9 Alcohol intoxication F10.929 EtOH dependence F10.20 Substance use status: uncomplicated Vitamin B12 deficiency E53.8 DVT prophylaxis Z29.9 (1) EtOH dependence Substance use status: uncomplicated Qualified Code(s): F10.20 - Alcohol dependence, uncomplicated (2) Laceration of tragus of right ear Encounter type: initial encounter Qualified Code(s): S01.311A - Laceration without foreign body of right ear, initial encounter (3) Hyperlipidemia Hyperlipidemia type: unspecified Qualified Code(s): E78.5 - Hyperlipidemia, unspecified (4) Hypertension Hypertension type: essential hypertension Qualified Code(s): I10 - Essential (primary) hypertension
[2021-03-10 19:34] VITALS: O2SAT 98
[2021-03-10] MEDS: FENOFIBRATE NANOCRYSTALLIZED 145 MG TABLET PO SCH (20:53)
[2021-03-10] MEDS: busPIRone 15 MG TAB PO SCH (20:53)
[2021-03-10] MEDS: ATORVASTATIN 40 MG TAB PO SCH (20:53)
[2021-03-10] MEDS: MELATONIN 3 MG TAB PO SCH (20:53)
[2021-03-10] MEDS: MIRTAZAPINE TAB 15 MG TAB PO SCH (20:54)
[2021-03-11] MEDS ORDERED: hydrOXYzine HCl 25 MG TAB PO STA (00:02)
[2021-03-11 06:21] LABS: Albumin Level 2.9 gm/dl (3.4-5.0); BUN Creatinine Ratio 10.3 (10-20); Calcium 8.2 mg/dl (8.5-10.1); Creatinine Clr Calc Pharmacy 139.5 ml/min; Est GFR (African American) 116.5 ml/min; Est GFR (Non-African American) 100.6 ml/min; Magnesium 1.6 mg/dl (1.8-2.4); Potassium 3.2 mmol/L (3.5-5.1)
[2021-03-11 06:24] LABS: Albumin Globulin Ratio 0.8 (0.9-2); Bilirubin,Total 0.7 mg/dl (0.2-1); Globulin 3.8 gm/dl (2.5-4.0); Total Protein 6.7 gm/dl (6.4-8.2)
[2021-03-11 07:41] VITALS: TEMP 98.4
[2021-03-11] MEDS ORDERED: POTASSIUM CHLORIDE CRTAB 20 MEQ TABCR PO STA (08:50)
[2021-03-11] MEDS ORDERED: FOLIC ACID 1 MG TAB PO SCH (09:00)
[2021-03-11] MEDS ORDERED: THIAMINE HCL 100 MG TAB PO SCH (09:00)
[2021-03-11] MEDS: INSULIN ASPART 100 UNITS/ML 3 ML PEN SC SCH ×2 (09:11→12:16)
[2021-03-11] MEDS: MAGNESIUM SULFATE / D5W 1 GM/100 ML BAG IV SCH ×2 (09:18→10:31)
[2021-03-11] MEDS: CITALOPRAM 40 MG TAB PO SCH (09:18)
[2021-03-11] MEDS: TOPIRAMATE 50 MG TAB PO SCH (09:18)
[2021-03-11] MEDS: ASPIRIN 81 MG ECTAB PO SCH (09:18)
[2021-03-11] MEDS: OLMESARTAN MEDOXOMIL 5 MG TAB PO SCH (09:19)
[2021-03-11] MEDS: PANTOprazole 40 MG TAB PO SCH (09:19)
[2021-03-11] MEDS: ENOXAPARIN INJ 40 MG/0.4 ML SYR SQ SCH (09:19)
[2021-03-11] MEDS: busPIRone 15 MG TAB PO SCH (09:19)
[2021-03-11] MEDS: POLYETHYLENE (MIRALAX) 17 GM PACK PO SCH (09:20)
[2021-03-11 11:46] VITALS: BP 128/82; PULSE 59
--- NOTE | 2021-03-15 11:34 | Discharge Summary ---
Date of Service March 11, 2021 Admission HPI Per Admitting Provider 50-year-old male with a past medical history of prostate cancer status post radiation therapy, history of TIA, history of seizure, history of subdural hematoma after fall, alcohol dependence, major depression, anxiety, restless leg syndrome, suicidal ideation, diabetes, hypertriglyceridemia, and multiple psychiatric inpatient admissions.He presents to the ER today with his after she noticed a change in mental status for him. She states that he fell over sometime in the morning when she was not at home she noticed that he had blood coming out of his right ear but it appeared to be coming from an external lace ration at the inside. She started getting concerned when around 6 PM he had an acute change in mental status and was not making sense with his words. At this time she brought him to the ER.She notes that he does have a history of alcohol abuse and addiction. She has been to rehab multiple times before and says that his most recent commitment to being sober was in March of last year. She states that he has not been sober for any longer than 5 months at a time. She denies any alcohol being in the house and says that he usually buys his own and then hides the bottles. He prefers to drink whiskey. Unable to take HPI from patient due to trouble with word finding, slurring of speech and drowsiness 2/2 multiple ativan doses. He has had multiple admissions for alcohol withdrawal, fall and subsequent subdural hematoma, suicidal ideation and mood lability. ER course significant for CT Noncon head negative for acute intracranial bleeding or midline shift. CT neck negative for C-spine vertebrae damage. He received 3 mg of Ativan IV total to help stem his tremulousness and apparent withdrawal. CTA head and neck pending at time of documentation. Principal Diagnosis Alcohol dependence with withdrawal symptoms, fall, right ear laceration, alcoholic hepatitis, hypokalemia, hypomagnesemia Discharge Exam Constitutional WD/WN, vitals as above Eyes + anicteric sclerae ENMT Ears: + external ear abnormality (Rt ear tragus with sutures in place with scant bloody drainage, mild edema); no hearing impairment Neck trachea midline, no thyromegaly Respiratory normal respiratory effort, lungs clear to auscultation Cardiovascular RRR, no murmur, no edema Chest (Breasts) Chest: normal inspection of chest Gastrointestinal (Abdomen) normal bowel sounds, soft, nontender, no hepatosplenomegaly Musculoskeletal Extremities: extremities normal to inspection; no cyanosis and no clubbing Skin no rashes, warm and dry Neurologic moves all extremities and awake; no focal motor deficits Psychiatric Orientation: alert, oriented x 3 and cooperative Speech: normal rate/rhythm/volume of speech Affect: euthymic affect Lymphatic no lymphedema Discharge Data Allergies Allergy/AdvReac Type Severity Reaction Status Date / Time bee venom protein (honey bee) Allergy Severe ANAPHYLAXIS Verified 03/08/21 19:46 cat dander Allergy Intermediate Itchy/Watery Verified 03/08/21 19:46 Eyes, Itchy throat tamsulosin Allergy Intermediate Hives Verified 03/08/21 19:46 Consultations 03/08/21 21:05 ED Decision to Admit Stat 03/09/21 08:05 Consult Neurology Routine Ordered Studies 03/08/21 19:06 CT cervical spine wo con Stat CT head/brain wo con Stat 03/08/21 22:39 CT angio head w con Urgent CT angio neck with con Urgent 03/09/21 10:17 MR brain seizure wo/w con Routine Cervical Spine CT 03/08/21 19:06 CT OF THE CERVICAL SPINE WITHOUT CONTRAST CLINICAL HISTORY: ams, pain fall COMPARISON STUDY: CT of the cervical spine September 13, 2018. TECHNIQUE: Helical axial images of the cervical spine were obtained without IV contrast. Sagittal and coronal reconstructions were viewed. Automated exposure control was utilized for the study. A dose lowering technique was utilized adhering to the principles of ALARA. FINDINGS: Alignment of the cervical spine is anatomic. Vertebral body heights are maintained. No acute cervical spine fracture or subluxation is present. There is no prevertebral edema. Facet joints are intact. IMPRESSION: No acute cervical spine fracture or subluxation. ACT 112: Negative or not required by law. Electronically signed by: Lucius Sweeney M.D. 03/08/2021 7:[address] 03/08/21 19:06 CT OF THE HEAD WITHOUT CONTRAST CLINICAL HISTORY: ams, pain fall COMPARISON STUDY: Head CT and CTA of the head March 25, 2020. MRI of the brain June 28, 2020. CT DOSE: 1404.82 mGy.cm TECHNIQUE: Helical axial images of the head were obtained without IV contrast. Automated exposure control was utilized for the study. A dose lowering technique was utilized adhering to the principles of ALARA. FINDINGS: No acute intracranial hemorrhage, midline shift or mass effect is present. The ventricular system is unremarkable. The basal cisterns are patent. No extra-axial collections are present. There are no findings to suggest acute dural sinus thrombosis or acute territorial infarct. No significant calvarial abnormalities are present. Mucous retention cysts are incidentally noted within the maxillary sinuses. IMPRESSION: No acute intracranial findings. ACT 112: Negative or not required by law. Electronically signed by: Lucius Sweeney M.D. 03/08/2021 7:43 PM Chest X-Ray 03/08/21 19:07 XR chest 1V portable CLINICAL HISTORY: Chest Pain COMPARISON STUDY: Chest radiograph July 27, 2019. FINDINGS: Lung volumes are at the lower limits of normal. Lungs are clear. There is no pneumothorax or pleural effusion. Cardiac size is normal. Mediastinal contours are normal. There is no evidence for pulmonary edema. IMPRESSION: No acute cardiopulmonary findings. ACT 112: Negative or not required by law. Electronically signed by: Lucius Sweeney M.D. 03/08/2021 8:04 PM Head CTA 03/08/21 22:39 HEAD CTA HISTORY: Stroke symptoms. Altered mental status. TECHNIQUE: Multiaxial CT images of the head were performed both before and after the intravenous administration of contrast to evaluate the major cerebral vessels. Maximum intensity projection images were also obtained. A dose lowering technique was utilized adhering to the principles of ALARA. COMPARISON: None. FINDINGS: Severe calcified plaque within the bilateral carotid siphons resulting in long segments of moderate stenosis of approximately 50-70% bilaterally. The major dural venous sinuses are patent. Focal calcified plaque within the distal left vertebral artery demonstrating approximately 75% stenosis best seen on image 29. The distal left vertebral artery is hypoplastic in comparison to the right. The basilar artery and distal right vertebral artery are patent. There is no significant stenosis, occlusion, or aneurysm seen within the bilateral ACAs, MCAs, or landfill gas technician. IMPRESSION: 1. Moderate stenosis within the bilateral carotid siphons and distal left vertebral artery due to the calcified plaque as described above. 2. No significant stenosis, occlusion, or aneurysm within the bilateral ACAs, MCAs, or landfill gas technician. ACT 112: Negative or not required by law. Electronically signed by: Luciano Cahney M.D. 03/09/2021 7:17 AM Neck CTA 03/08/21 22:39 CT angio neck with con CLINICAL HISTORY: concern fro stroke COMPARISON STUDY: March 25, 2020 TECHNIQUE: CT angiography was performed from the aortic arch to the skull base. MIP imaging was performed. The patient was scanned in a dynamic helical fashion during intravenous administration of cc of Optiray. A dose lowering technique was utilized adhering to the principles of ALARA. CT DOSE: Technique: CT angiogram of the carotid and vertebral arteries was obtained using intravenous contrast and 3-D reconstruction. NASCET criteria was utilized. Findings: Heavy calcified plaques are seen in bilateral carotid bulbs with 50-75% stenosis. Heavily calcified plaques are seen within cavernosal portion of bilateral carotid arteries with moderate to severe stenosis on the right and severe, above 90% stenosis on the left (serious 4 image 386) overall evaluation is limited due to blooming artifact and findings are similar to prior. Calcified plaque is again seen at the origin of the right vertebral artery was approximately 50% stenosis. Heavily calcified plaque is seen within proximal aspect of the V4 segment of the left vertebral artery and associated with long segment distal narrowing. Calcified plaque is seen at the origin of the left vertebral artery. Evaluation is limited due to motion artifact. No evidence of focal occlusion, dissection or aneurysmal dilatation is seen. Limited evaluation of lung bases shows minimal paraseptal emphysema. Visualized portion of thyroid gland shows no evidence of focal lesions. Findings are similar to prior study performed on March 25, 2020. IMPRESSION: 1. Atherosclerotic involvement of bilateral carotid and vertebral arteries, similar to prior study. 2. Severe stenosis at the cavernosal portion of the left internal carotid artery is similar to prior study. Limited evaluation due to blooming artifact. 3. Long segment narrowing of the distal portion of left V4. 4. No evidence of focal occlusion, aneurysmal dilatation or dissection. ACT 112: Negative or not required by law. The above report was generated using voice recognition software. It may contain grammatical, syntax or spelling errors. Electronically signed by: Ijeoma Dickerson DO 03/09/2021 8:59 AM Brain MRI 03/09/21 10:17 Brain MRI WITH AND WITHOUT CONTRAST HISTORY: Loss of consciousness, left carotid stenosis, confusion TECHNIQUE: Multiplanar multisequence MRI of the brain was performed both before and after the intravenous administration of contrast. COMPARISON STUDY: Head CT 03/08/2021. Brain MRI 03/26/2020. FINDINGS: No areas of restricted diffusion to suggest acute infarction. The midline structures are intact. The orbits are unremarkable. Mild mucosal thickening within the paranasal sinuses. The mastoid air cells are essentially clear. The major vascular flow voids at the skull base are well-maintained. The ventricles and sulci demonstrate mild age-related involutional changes. There is no mass, hematoma, midline shift. There are few scattered punctate foci of T2 hyperintensity seen within the periventricular white matter of the supratentorial brain. These are nonspecific but favor mild microvascular ischemic change. This is similar to the prior study. The temporal lobes are symmetric. Stable mild smooth bifrontal pachymeningeal enhancement. IMPRESSION: No significant change compared to the prior study. No acute intracranial abnormality. ACT 112: Negative or not required by law. Electronically signed by: Luciano Chaney M.D. 03/09/2021 1:58 PM Hospital Course (1) Unwitnessed fall: 60 yo M with an extensive hx of alcohol abuse and dependence, seizure disorder secondary to history of SDH, RLS, carotid artery stenosis, HLD, DM2, HTN, Recurrent uncontrolled anxiety and depression who is admitted for fall and acute encephalopathy secondary to ETOH intoxication and withdrawal. Fall - unwitnessed, found to have bleeding from right ear 2/2 external laceration of tragus. Sutured by Dr. Lyn in ER. - likely secondary to alcohol intoxication given BAL of 195 on admission (prev as high as 247) - CT Head wo con and CT C-spine negative for acute bleed, bony fracture - CTA Head and Neck negative for acute cva but do show known carotid artery stenosis -Appreciate neurology consultation-brain MRI performed and is without acute changes. No need for EEG and he does not suspect this is a seizure but more likely secondary to alcohol intoxication and withdrawal -PT/OT consultations appreciated-recommend home as he is ambulating without difficulty -Neurology also recommended discontinuing ropinirole as this can cause orthostatic hypotension and did present with some hypotension on admission (2) Alcohol withdrawal delirium: Alcohol Dependence and withdrawal - hx of dependence traces back to diagnosis of prostate cancer and retiring 5 years ago. Per , drinking has gotten worse and worse since then despite multiple rehab stays, AA, support. - AWSS protocol with prn ativan - loaded with 20 mg IV valium to prevent DT and decrease need for prn benzodiazepines and receiving as needed IV Ativan-last dose on 03/09 Improved and was not having any signs of withdrawal at the time of discharge -Continue daily folate and thiamine upon discharge - folate normal and B12 mildly low while here-he was given 1 dose of intramuscular B12 1000 mcg - urine drug screen negative -Patient is not interested in inpatient alcohol rehab-he feels he is in a family support and knowledge from previous rehab stays to achieve abstinence on his own (3) Diabetes: DM2: on metformin and jardiance at home. SSI, carb consistent diet. A1c 5.9% very well controlled (4) Anxiety: Anxiety and Depression with hx suicidal ideation and plan-none currently and feels his mood is a bit anxious but not depressed - cont buspar, citalopram, mirtazapine - per chart review, previously has been on lamictal and seroquel but has been noncompliant with taking medications, feeling better when he takes them but frequently not. Continue outpatient follow-up with psychiatry and psychology (5) Major depression, recurrent: As above Follows with outpatient psychiatry (6) Hyperlipidemia: HLD/L carotid artery stenosis: Patient does fill prescriptions for both atorvastatin and rosuvastatin as an outpatient -Discontinue rosuvastatin and continue atorvastatin upon discharge -Cont fenofibrate and ASA. Trig 199, LDL 35, HDL 54. (7) Hypertension: Blood pressures controlled Cont olmesartan (8) Alcoholic hepatitis: - AST/ALT 2:1 in pattern with alcohol induced liver damage - INR, Platelet function still WNL - noted leukopenia and anemia with borderline elevated MCV (92) likely from alcoholic suppression of bone marrow - outpatient evaluation with US for hepatic fibrosis reasonable LFTs are continuing to improve Follow LFTs as an outpatient (9) Laceration of tragus of right ear: Sutured in the ER Sutures remain in place with scant bloody drainage, mild edema of the ear but no evidence of infection Will need suture removal in 7 to 10 days with PCP Ordered for wound care with daily OPTi foam dressing to be changed (10) RLS (restless legs syndrome): Neurology recommended discontinuation of ropinirole as above for possible orthostasis (11) Seizure disorder: History of seizures in the setting of subdural hematomas but has since been weaned off all seizure medication He takes Topamax for chronic headaches (12) Carotid artery stenosis: Moderate stenosis bilaterally with one area of 75% on the left Continue statin, aspirin No evidence of stroke on MRI here Patient has a left CEA planned on March 27 (13) Hypokalemia: Replaced upon admission and improved by the day of discharge but remained mildly low-again replaced with oral potassium chloride His diet and p.o. intake is now improving and this should resolve with time follow-up BMP with PCP in 1 week (14) Hypomagnesemia: Was quite low here at 1.3 on 2 occasions Replaced with multiple doses of 1 g IV magnesium sulfate Improved on the day of discharge Now should improve with regular p.o. intake Follow magnesium level as an outpatient with PCP (15) Headache: Has a history of chronic migraines on Topamax Also with a headache here due to head trauma from fall and ear laceration which improved by the day of discharge CT head and MRI brain without intracranial hemorrhage Tylenol as needed (16) Alcohol intoxication: As above Encourage cessation (17) EtOH dependence: As above (18) Vitamin B12 deficiency: B12 level borderline low at 323 Replaced with cyanocobalamin 1000 mcg IM x1 Should continue with replacement via IM injections as an outpatient (19) DVT prophylaxis: Lovenox Disposition-stable for discharge to home PT/OT consultations recommend home Discussed his care with his on the phone on 03/09 and 03/10, and then in person on 03/11 on the day of discharge at the bedside Total Time Total Time Spent Total Time Spent (In Minutes): 35 minutes Total Time Includes: Examination of the Patient, Discharge Planning and Medication Reconciliation Discharge Plan Discharge Items Patient Disposition: Home - Self-Care Reason For Visit: ETOH WITHDRAWAL, FALL, ENCEPHALOPAHTY Discharge Diagnosis: Alcohol withdrawal, encephalopathy, fall, right ear laceration, hypokalemia, hypomagnesemia Condition on Discharge: Fair Activity: As commented below Lifting: Gradually increase as tolerated Bathing: No limitations Exercise/Sports: Gradually increase as tolerated Driving/Machine Use: No driving until seen by your PCP Non-emergency contact: Primary Care Provider Call non-emergency contact if: you have any medication questions, your symptoms worsen, you have a fever, your wound has increased redness, your wound has increased drainage and your wound pain has increased Follow-up/Referrals: Matheus Riojas [Primary Care Provider] - (Follow up in 1-2 weeks.) Diet: Heart Healthy Addtl Attending Provider Instructions: You were admitted for confusion and a fall resulting in a laceration of your right ear. This was secondary to alcohol withdrawal. Please continue to take the vitamins as prescribed and continue to abstain from alcohol. Follow up with your Therapist within 1-2 weeks. Your right ear was sutured and you should have the sutures removed in 1 week with your PCP. You can use a warm wet washcloth and soap to gently cleanse the ear, then pat dry and leave it uncovered. Follow up with your PCP in 1 week. Pending Studies at Discharge: No Stand-Alone Forms: [facility], Smoking Cessation Medications and DC Order Prescriptions: New thiamine HCl (vitamin B1) [Vitamin B-1] 100 mg Tablet 100 mg PO QAM Qty: 30 RF: 0 folic acid 1 mg Tablet 1 mg PO QAM Qty: 30 RF: 0 Continued citalopram 40 mg tablet 40 mg PO DAILY RF: 0 melatonin 5 mg capsule 5 mg PO HS RF: 0 topiramate 50 mg tablet 50 mg PO BID Qty: 180 RF: 1 pantoprazole 40 mg Tablet,Delayed Release (Dr/Ec) 40 mg PO QAM RF: 0 epinephrine [EpiPen] 0.3 mg/0.3 mL Auto-Injector 0.3 mg IM DIRECTED PRN (Reason: Allergic Reaction) RF: 0 fenofibrate nanocrystallized 145 mg tablet 145 mg PO HS RF: 0 atorvastatin 80 mg tablet 80 mg PO HS Qty: 30 RF: 0 aspirin 81 mg Tablet,Delayed Release (Dr/Ec) 81 mg PO QAM Qty: 30 RF: 0 Jardiance 10 mg tablet 10 mg PO DAILY RF: 0 mirtazapine 15 mg tablet 22.5 mg PO HS RF: 0 buspirone 30 mg tablet 30 mg PO BID PRN (Reason: Anxiety) RF: 0 olmesartan 5 mg tablet 5 mg PO DAILY RF: 0 metformin 1,000 mg tablet 1,000 mg PO BID RF: 0 Discontinued ropinirole 0.5 mg tablet 0.5 mg PO HS 90 Days Qty: 90 RF: 1 rosuvastatin 10 mg tablet 10 mg PO DAILY RF: 0 Discharge Orders: Discharge Order (Routine); Ordered 03/11/21 Ordered By: Janice Cerna Admission Data Admit Date/Time: 03/08/21 21:53 Attending Provider: Janice Cerna Admit Provider: Alicia Sutton Primary Care Provider: Matheus Riojas Other Providers: Latoya Santos Emile Other Interventions: Discharge Summary Assessment (RN) Last Done: 03/11/21 13:53 Coding Level of Care Code D/C Day Management >30 mins Diagnoses Unwitnessed fall R29.6 Alcohol withdrawal delirium F10.231 Diabetes E11.9 Anxiety F41.9 Major depression, recurrent F33.9 Hyperlipidemia E78.5 Hyperlipidemia type: unspecified Hypertension I10 Hypertension type: essential hypertension Alcoholic hepatitis K70.10 Laceration of tragus of right ear S01.311A Encounter type: initial encounter RLS (restless legs syndrome) G25.81 Seizure disorder G40.909 Carotid artery stenosis I65.29 Hypokalemia E87.6 Hypomagnesemia E83.42 Headache R51.9 Alcohol intoxication F10.929 EtOH dependence F10.20 Substance use status: uncomplicated Vitamin B12 deficiency E53.8 DVT prophylaxis Z29.9
== END 2021-03-11 13:53 | disposition home or self-care (01) ==
LOC: ED 18:37 → 2E 21:53 → SUATTDRO 21:53 → 2E 22:56

== ENCOUNTER 2021-08-17 22:58 | Observation (INO) ==
--- NOTE | 2021-08-17 23:10 | Emergency Department Note ---
Impression & Plan Acute hepatic encephalopathy Admission ED Provider Note HPI: The patient is a 61-year-old gentleman with history of hypertension, alcohol abuse, diabetes, who presents the emergency department via ambulance over concern for strokelike symptoms today. Patient reportedly had some transient right-sided facial droop earlier this afternoon, patient seemed more confused th an usual later this evening per nursing staff and EMS was contacted and he was sent to the ED from [facility]. Timeline of the patient's symptoms are somewhat unclear, this reportedly happened "earlier this afternoon". This evening he was at the nurses station and was confused and was mumbling his words. On arrival here to the ED the patient is alert and oriented x3, his speech is clear but he does have a delayed response, he is hemodynamically stable, he does not have any focal motor deficits on arrival. ROS: -Neuro: Confusion, reported transient word finding difficulty, reported transient right-sided facial droop *10 point review systems was conducted and is otherwise negative unless stated above *Outpatient medications and allergy history reviewed PE: General: Alert, NAD HEENT: Normocephalic, atraumatic, trachea midline Eyes: Extraocular eye movement is intact, no scleral erythema Pulmonary: Clear to auscultation bilaterally, no wheezing Cardio: Regular rate and rhythm GI: Abdomen is soft, nontender : No suprapubic tenderness MSK: No evidence of trauma or malformation of the extremities, no edema Skin: No evidence of rash Neuro: Alert, no focal deficits, no ataxia on [id number] testing bilaterally, no drift of the upper extremities or lower extremities with testing against gravity Psychiatric: Cooperative CT HEAD: Comparison to MRI brain from March 09, 2021. Mild periventricular white matter low density bilaterally consistent chronic small vessel disease, unchanged. There is no evidence of acute large vessel infarct or intracranial hemorrhage. The paranasal sinuses and mastoid air cells are normal. No skull fracture or scalp hematoma is seen. Radiologist: Alphonse Santos MD CTA HEAD: Comparison to March 08, 2021 Severe calcification of the cavernous portions of the distal internal carotid arteries bilaterally with 30-40% stenosis bilaterally, unchanged. Calcified plaque in the distal left vertebral artery with 50-70% stenosis at the level of the paris magnum, unchanged. The basilar artery is widely patent. The anterior, middle, and posterior cerebral arteries appear within normal limits. No aneurysm, vascular malformation, or arterial thrombus is identified. Radiologist: Alphonse Santos MD CTA NECK: The ascending aortic arch is borderline dilated measuring 3.9 cm in diameter. There is no dissection. The great vessel origins are widely patent. Heavily calcified plaque in the right carotid bulb causing 50% stenosis of the proximal right internal carotid artery. Trace amount of plaque at the left carotid bifurcation. No stenosis of the left common or internal carotid arteries. 20% stenosis of the origin of the right vertebral artery which is otherwise widely patent. The left vertebral artery is smaller than the right but appears widely patent up to the paris magnum at which point there is a calcified plaque causing 50-70% stenosis. Radiologist: Alphonse Santos MD NIH STROKE SCALE: 1A: Level of consciousness Alert; keenly responsive 0 1B: Ask month and age Both questions right 0 1C: 'Blink eyes' & 'squeeze hands' Performs both tasks 0 2: Horizontal extraocular movements Normal 0 3: Visual rivero No visual loss 0 4: Facial palsy Normal symmetry 0 5A: Left arm motor drift No drift for 10 seconds 0 5B: Right arm motor drift No drift for 10 seconds 0 6A: Left leg motor drift No drift for 5 seconds 0 6B: Right leg motor drift No drift for 5 seconds 0 7: Limb Ataxia No ataxia 0 8: Sensation Normal; no sensory loss 0 9: Language/aphasia Normal; no aphasia 0 10: Dysarthria Normal 0 11: Extinction/inattention No abnormality 0 TOTAL NIH SCORE =0 environmental monitoring specialist: Order placed, patient is in sinus rhythm on the monitor EKG: Rate: 61 Rhythm: Normal sinus rhythm Intervals: Within normal limits ST changes: No ST elevation Time: 2318 Medical Decision Making: Patient presented to the emergency department with some confusion, he is currently at a rehabilitation facility for alcohol withdrawal. On arrival here to the ED he is mildly confused but he is alert and oriented x3, he has some delay in his response to questioning but does not have any focal motor deficits on arrival. He is not considered a candidate for TPA given that the timeline of his symptom onset is unclear, in addition his symptoms are resolved. He reportedly had some right-sided facial droop at some point this afternoon and also had some word finding difficulty. His NIH stroke scale is 0 on arrival. Lab work is generally reassuring aside from some slight leukopenia, patient is also noted to have an elevated ammonia level in the 70s. He was given lactulose in the ED. CT of the head does not show any evidence of acute intracranial bleeding or any other acute intracranial process, CT angiography shows multiple areas of stable stenosis without any large vessel occlusion. Patient remained otherwise hemodynamically stable while here in the ED, on my reassessment he is resting in bed, remains at his baseline from presentation. I discussed the above findings with the patient and he is in agreement for admission, I suspect that his confusion and abnormal behavior earlier today is likely related to his elevated ammonia levels. Less likely an ischemic event. Patient will be admitted to the [facility] hospitalist group for further care. * Diagnosis: Hepatic encephalopathy, transient word finding difficulty, confusion * Disposition: Admission Kory Encarnacion DO Emergency Medicine Past Med/Surg History Medical History (Updated 08/18/21 @ 01:52 by Kory Encarnacion DO) Alcohol abuse Anxiety Depression Diverticulosis Headache Headache Hyperlipidemia Hypertension Left arm weakness Panic attacks Prostate cancer (07/30/16) Suicidal behavior Suicidal ideation attempt to buy gun, was not able to buy one. TIA (transient ischemic attack) Vitamin B12 deficiency Surgical History History of cholecystectomy History of repair of ACL Family History Father , Mother age 56 of colon cancer Colorectal cancer Mother , the age 78 of a blood clot Dementia Clotting disorder Other Cancer Social History Smoking Status: Current every day smoker Tobacco Type: Cigars Cigarettes Per Day: 1 cigar per day. Quit cigarettes 30 years ago; Hx Alcohol Use: Yes ( no alcohol for 4 months. 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 [employer] Feels Safe at Home: Yes Assistive Devices: Glasses Allergies Allergies Allergy/AdvReac Type Severity Reaction Status Date / Time bee venom protein (honey bee) Allergy Severe ANAPHYLAXIS Verified 08/17/21 23:46 cat dander Allergy Intermediate Itchy/Watery Verified 08/17/21 23:46 Eyes, Itchy throat tamsulosin Allergy Intermediate Hives Verified 08/17/21 23:46 Home Meds Home Medications Medication Instructions Recorded Confirmed epinephrine 0.3 mg/0.3 mL 0.3 mg IM DIRECTED PRN 03/21/19 08/18/21 injection, auto-injector (EpiPen) pantoprazole 40 mg tablet,delayed 40 mg PO QAM 03/21/19 08/17/21 release citalopram 40 mg tablet 40 mg PO DAILY tab 11/11/19 08/17/21 melatonin 5 mg capsule 5 - 10 mg PO HS PRN 11/11/19 08/17/21 buspirone 30 mg tablet 30 mg PO BID17 03/08/21 08/17/21 empagliflozin 10 mg tablet 10 mg PO DAILY 03/08/21 08/17/21 (Jardiance) metformin 1,000 mg tablet 1,000 mg PO BID17 03/08/21 08/17/21 olmesartan 5 mg tablet 5 mg PO DAILY 03/08/21 08/17/21 ropinirole 0.5 mg tablet 0.5 mg PO HS 04/18/21 08/17/21 rosuvastatin 40 mg tablet 40 mg PO DAILY 04/18/21 08/17/21 clonidine HCl 0.1 mg tablet 0.1 mg PO TID PRN 08/17/21 08/17/21 cyanocobalamin (vitamin B-12) 1,000 mcg PO DAILY 08/17/21 08/17/21 1,000 mcg tablet (Vitamin B-12) fenofibrate nanocrystallized 145 145 mg PO HS 08/17/21 08/17/21 mg tablet hydroxyzine HCl 50 mg tablet 50 mg PO TID PRN 08/17/21 08/17/21 icosapent ethyl 1 gram capsule 2 g PO BID 08/17/21 08/17/21 (Vascepa) mirtazapine 30 mg tablet 30 mg PO HS 08/17/21 08/17/21 multivitamin 1 tab PO DAILY 08/17/21 08/17/21 topiramate 50 mg tablet 50 mg PO BID17 08/18/21 08/17/21 Previous Rx's Medication Instructions Recorded aspirin 81 mg tablet,delayed 81 mg PO QAM #30 tab 06/06/20 release folic acid 1 mg tablet 1 mg PO QAM #30 tab 03/11/21 thiamine HCl (vitamin B1) 100 mg 100 mg PO QAM #30 tab 03/11/21 tablet (Vitamin B-1) Results & Data (ED) Vital Signs Vital Signs - 24 hr 08/17/21 23:23 08/17/21 23:30 08/17/21 23:32 Temperature 36.7 C 36.7 C Temperature Source Oral Oral Pulse Rate 62 62 Pulse Rate [Finger] 63 Pulse Rate from SpO2 Sensor 63 Pulse Rhythm Regular Pulse Rhythm [Finger] Regular Pulse Strength Normal Pulse Strength [Finger] Normal Respiratory Rate 16 22 16 Respiratory Effort / Characteristics Non-Labored Non-Labored Respiratory Depth Normal Normal Blood Pressure 126/82 134/87 Blood Pressure [Right Arm] 134/87 Blood Pressure Mean 96 102 Blood Pressure Mean [Right Arm] 102 Blood Pressure Position Lying Blood Pressure Position [Right Arm] Lying Pulse Oximetry 98 97 98 Oxygen Delivery Method Room Air Room Air Sepsis Recent Fever Within 48 Hours No Sepsis New/Unexplained Change in Mental Status No Sepsis Action Taken by Nursing No Action Required 08/18/21 00:30 08/18/21 01:00 08/18/21 01:30 Temperature Temperature Source Pulse Rate 60 62 61 Pulse Rate [Finger] Pulse Rate from SpO2 Sensor 57 L 61 63 Pulse Rhythm Pulse Rhythm [Finger] Pulse Strength Pulse Strength [Finger] Respiratory Rate 24 15 15 Respiratory Effort / Characteristics Respiratory Depth Blood Pressure 140/85 135/84 126/83 Blood Pressure [Right Arm] Blood Pressure Mean 103 101 97 Blood Pressure Mean [Right Arm] Blood Pressure Position Blood Pressure Position [Right Arm] Pulse Oximetry 97 96 91 Oxygen Delivery Method Sepsis Recent Fever Within 48 Hours Sepsis New/Unexplained Change in Mental Status Sepsis Action Taken by Nursing Laboratory Data Result diagrams: 08/17/21 22:38 08/17/21 22:38 Lab Results 08/17/21 08/17/21 08/17/21 Range/Units 22:38 22:38 22:38 WBC 3.70 L (4.8-10.8) K/uL RBC 3.59 L (4.7-6.1) M/uL Hgb 11.0 L (14.0-18.0) g/dL Hct 32.6 L (42-52) % MCV 90.8 (80-100) fL MCH 30.6 (25-34) pg MCHC 33.7 (32-36) g/dL RDW Std Deviation 52.3 H (36.4-46.3) fL RDW Coeff of Antonio 15.5 H (11.5-14.5) % Plt Count 126 L (130-400) K/uL MPV 10.1 (7.4-10.4) fL Immature Gran % (Auto) 0.3 % Neut % (Auto) 53.7 % Lymph % (Auto) 28.1 % [place] % (Auto) 13.5 % Eos % (Auto) 4.1 % Baso % (Auto) 0.3 % Neut # (Auto) 1.99 (1.4-6.5) K/uL Lymph # (Auto) 1.04 L (1.2-3.4) K/uL [place] # (Auto) 0.50 (0.11-0.59) K/uL Eos # (Auto) 0.15 (0-0.5) K/uL Baso # (Auto) 0.01 (0-0.2) K/uL Immature Gran # (Auto) 0.01 (0.00-0.02) K/uL PT 10.3 (9.0-12.0) Seconds INR 1.0 (0.9-1.1) APTT 25.2 (21.0-31.0) Seconds PTT Ratio 1.0 Sodium 144 (136-145) mmol/L Potassium 3.4 L (3.5-5.1) mmol/L Chloride 114 H (98-107) mmol/L Carbon Dioxide 22 (21-32) mmol/L Anion Gap 7.0 (3-11) BUN 11 (7-18) mg/dl Creatinine 0.87 (0.6-1.4) mg/dl Est Cr Clr Drug Dosing 114.4 ml/min Est GFR ( Amer) 106.5 ml/min Est GFR (Non-Af Amer) 91.9 ml/min BUN/Creatinine Ratio 12.1 (10-20) Glucose 154 H (70-99) mg/dl Calcium 9.4 (8.5-10.1) mg/dl Magnesium 1.3 L (1.8-2.4) mg/dl Total Bilirubin 0.4 (0.2-1) mg/dl AST 147 H (15-37) U/L ALT 119 H (12-78) U/L Alkaline Phosphatase 102 (45-117) U/L Ammonia (11-32) umol/L Troponin I < 0.015 (0-0.045) ng/ml Total Protein 6.2 L (6.4-8.2) gm/dl Albumin 2.7 L (3.4-5.0) gm/dl Globulin 3.5 (2.5-4.0) gm/dl Albumin/Globulin Ratio 0.8 L (0.9-2) Ethyl Alcohol mg/dL (0-3) mg/dl COVID-19 Eval Order SARS-CoV-2 (PCR) (Negative) 08/17/21 08/17/21 08/18/21 Range/Units 23:54 23:54 00:29 WBC (4.8-10.8) K/uL RBC (4.7-6.1) M/uL Hgb (14.0-18.0) g/dL Hct (42-52) % MCV (80-100) fL MCH (25-34) pg MCHC (32-36) g/dL RDW Std Deviation (36.4-46.3) fL RDW Coeff of Antonio (11.5-14.5) % Plt Count (130-400) K/uL MPV (7.4-10.4) fL Immature Gran % (Auto) % Neut % (Auto) % Lymph % (Auto) % [place] % (Auto) % Eos % (Auto) % Baso % (Auto) % Neut # (Auto) (1.4-6.5) K/uL Lymph # (Auto) (1.2-3.4) K/uL [place] # (Auto) (0.11-0.59) K/uL Eos # (Auto) (0-0.5) K/uL Baso # (Auto) (0-0.2) K/uL Immature Gran # (Auto) (0.00-0.02) K/uL PT (9.0-12.0) Seconds INR (0.9-1.1) APTT (21.0-31.0) Seconds PTT Ratio Sodium (136-145) mmol/L Potassium (3.5-5.1) mmol/L Chloride (98-107) mmol/L Carbon Dioxide (21-32) mmol/L Anion Gap (3-11) BUN (7-18) mg/dl Creatinine (0.6-1.4) mg/dl Est Cr Clr Drug Dosing ml/min Est GFR ( Amer) ml/min Est GFR (Non-Af Amer) ml/min BUN/Creatinine Ratio (10-20) Glucose (70-99) mg/dl Calcium (8.5-10.1) mg/dl Magnesium (1.8-2.4) mg/dl Total Bilirubin (0.2-1) mg/dl AST (15-37) U/L ALT (12-78) U/L Alkaline Phosphatase (45-117) U/L Ammonia 72.0 H (11-32) umol/L Troponin I (0-0.045) ng/ml Total Protein (6.4-8.2) gm/dl Albumin (3.4-5.0) gm/dl Globulin (2.5-4.0) gm/dl Albumin/Globulin Ratio (0.9-2) Ethyl Alcohol mg/dL < 3.0 (0-3) mg/dl COVID-19 Eval Order Covid[address] [facility] SARS-CoV-2 (PCR) (Negative) 08/18/21 Range/Units 00:29 WBC (4.8-10.8) K/uL RBC (4.7-6.1) M/uL Hgb (14.0-18.0) g/dL Hct (42-52) % MCV (80-100) fL MCH (25-34) pg MCHC (32-36) g/dL RDW Std Deviation (36.4-46.3) fL RDW Coeff of Antonio (11.5-14.5) % Plt Count (130-400) K/uL MPV (7.4-10.4) fL Immature Gran % (Auto) % Neut % (Auto) % Lymph % (Auto) % [place] % (Auto) % Eos % (Auto) % Baso % (Auto) % Neut # (Auto) (1.4-6.5) K/uL Lymph # (Auto) (1.2-3.4) K/uL [place] # (Auto) (0.11-0.59) K/uL Eos # (Auto) (0-0.5) K/uL Baso # (Auto) (0-0.2) K/uL Immature Gran # (Auto) (0.00-0.02) K/uL PT (9.0-12.0) Seconds INR (0.9-1.1) APTT (21.0-31.0) Seconds PTT Ratio Sodium (136-145) mmol/L Potassium (3.5-5.1) mmol/L Chloride (98-107) mmol/L Carbon Dioxide (21-32) mmol/L Anion Gap (3-11) BUN (7-18) mg/dl Creatinine (0.6-1.4) mg/dl Est Cr Clr Drug Dosing ml/min Est GFR ( Amer) ml/min Est GFR (Non-Af Amer) ml/min BUN/Creatinine Ratio (10-20) Glucose (70-99) mg/dl Calcium (8.5-10.1) mg/dl Magnesium (1.8-2.4) mg/dl Total Bilirubin (0.2-1) mg/dl AST (15-37) U/L ALT (12-78) U/L Alkaline Phosphatase (45-117) U/L Ammonia (11-32) umol/L Troponin I (0-0.045) ng/ml Total Protein (6.4-8.2) gm/dl Albumin (3.4-5.0) gm/dl Globulin (2.5-4.0) gm/dl Albumin/Globulin Ratio (0.9-2) Ethyl Alcohol mg/dL (0-3) mg/dl COVID-19 Eval Order SARS-CoV-2 (PCR) NEGATIVE (Negative) Administered Medications Discontinued Medications Ioversol (Optiray 320 125ml) 125 ml IV ONCE ONE Stop: 08/18/21 00:35 Last Admin: 08/18/21 00:34 Dose: 118 ml Documented by: [id number] Lactulose (Lactulose Syrup 20 Gm/30 Ml Udc) 20 gm PO NOW ONE Stop: 08/18/21 01:42 Last Admin: 08/18/21 01:47 Dose: 20 gm Documented by: [id number] Discharge Plan Visit Data Chief Complaint: Stroke/CVA Symptoms Stated Complaint: STROKE SX ED Provider: Kory Encarnacion Discharge Problem: Acute hepatic encephalopathy Forms Stand Alone Forms: My [facility] Prescriptions Prescriptions: No Action citalopram 40 mg tablet 40 mg PO DAILY RF: 0 melatonin 5 mg capsule 5 - 10 mg PO HS PRN (Reason: Sleep) RF: 0 ropinirole 0.5 mg tablet 0.5 mg PO HS RF: 0 rosuvastatin 40 mg tablet 40 mg PO DAILY RF: 0 pantoprazole 40 mg Tablet,Delayed Release (Dr/Ec) 40 mg PO QAM RF: 0 epinephrine [EpiPen] 0.3 mg/0.3 mL Auto-Injector 0.3 mg IM DIRECTED PRN (Reason: Allergic Reaction) RF: 0 aspirin 81 mg Tablet,Delayed Release (Dr/Ec) 81 mg PO QAM Qty: 30 RF: 0 multivitamin Tablet 1 tab PO DAILY RF: 0 clonidine HCl 0.1 mg Tablet 0.1 mg PO TID PRN (Reason: ANXIETY/RESTLESSNESS X LOS/HR>/=70 AND BP>100/70) RF: 0 cyanocobalamin (vitamin B-12) [Vitamin B-12] 1,000 mcg Tablet 1,000 mcg PO DAILY RF: 0 hydroxyzine HCl 50 mg Tablet 50 mg PO TID PRN (Reason: ANXIETY X LOS) RF: 0 mirtazapine 30 mg Tablet 30 mg PO HS RF: 0 fenofibrate nanocrystallized 145 mg Tablet 145 mg PO HS RF: 0 icosapent ethyl [Vascepa] 1 gram Capsule 2 g PO BID RF: 0 topiramate 50 mg tablet 50 mg PO BID17 RF: 0 Jardiance 10 mg tablet 10 mg PO DAILY RF: 0 buspirone 30 mg tablet 30 mg PO BID17 RF: 0 olmesartan 5 mg tablet 5 mg PO DAILY RF: 0 metformin 1,000 mg tablet 1,000 mg PO BID17 RF: 0 thiamine HCl (vitamin B1) [Vitamin B-1] 100 mg Tablet 100 mg PO QAM Qty: 30 RF: 0 folic acid 1 mg Tablet 1 mg PO QAM Qty: 30 RF: 0 Referrals Referrals: Matheus Riojas [Primary Care Provider] -
[2021-08-17 23:25] LABS: Basophils # (auto) 0.01 K/uL (0-0.2); Basophils % (auto) 0.3 %; Eosinophils # (auto) 0.15 K/uL (0-0.5); Eosinophils % (auto) 4.1 %; Hematocrit (blood only) 32.6 % (42-52); Immature Granulocytes # (auto) 0.01 K/uL (0.00-0.02); Immature Granulocytes % (auto) 0.3 %; Lymphocytes # (auto) 1.04 K/uL (1.2-3.4); Lymphocytes % (auto) 28.1 %; Mean Corpuscular Hemoglobin 30.6 pg (25-34); Mean Corpuscular Hgb Conc 33.7 g/dL (32-36); Mean Corpuscular Volume 90.8 fL (80-100); Mean Platelet Volume 10.1 fL (7.4-10.4); Monocytes % (auto) 13.5 %; Neutrophils # (auto) 1.99 K/uL (1.4-6.5); Neutrophils % (auto) 53.7 %; Platelet Count 126 K/uL (130-400); RDW Coefficient of Variation 15.5 % (11.5-14.5); RDW Standard Deviation 52.3 fL (36.4-46.3); Red Blood Count 3.59 M/uL (4.7-6.1)
[2021-08-17 23:38] LABS: Partial Thromboplastin Time 25.2 Seconds (21.0-31.0); Prothrombin Time 10.3 Seconds (9.0-12.0)
[2021-08-17 23:44] LABS: Alanine Aminotransferase 119 U/L (12-78); Albumin Level 2.7 gm/dl (3.4-5.0); Aspartate Aminotransferase 147 U/L (15-37); BUN Creatinine Ratio 12.1 (10-20); Blood Urea Nitrogen 11 mg/dl (7-18); Calcium 9.4 mg/dl (8.5-10.1); Carbon Dioxide 22 mmol/L (21-32); Chloride 114 mmol/L (98-107); Creatinine Clr Calc Pharmacy 114.4 ml/min; Est GFR (African American) 106.5 ml/min; Est GFR (Non-African American) 91.9 ml/min; Glucose 154 mg/dl (70-99); Magnesium 1.3 mg/dl (1.8-2.4); Potassium 3.4 mmol/L (3.5-5.1); Sodium 144 mmol/L (136-145)
[2021-08-17 23:49] LABS: Albumin Globulin Ratio 0.8 (0.9-2); Alkaline Phosphatase 102 U/L (45-117); Bilirubin,Total 0.4 mg/dl (0.2-1); Globulin 3.5 gm/dl (2.5-4.0); Total Protein 6.2 gm/dl (6.4-8.2); Troponin I < 0.015 ng/ml (0-0.045)
[2021-08-18] MEDS ORDERED: OPTIRAY 320 125ml IV ONE (00:34)
[2021-08-18] MEDS ORDERED: LACTULOSE SYRUP 20 GM/30 ML UDC PO ONE (01:41)
[2021-08-18] MEDS ORDERED: LORazepam 3 MG/6 ML VIAL IV PRN (02:29)
[2021-08-18] MEDS ORDERED: ATIVAN IV ALCOHOL WITHDRAWL IV PRN (02:29)
[2021-08-18] MEDS ORDERED: LORazepam 2 MG/4 ML VIAL IV PRN (02:29)
[2021-08-18] MEDS ORDERED: LORazepam 1 MG/2 ML VIAL IV PRN (02:29)
--- NOTE | 2021-08-18 02:29 | History & Physical Report ---
Date of Service August 18, 2021 Assessment & Plan (1) Acute hepatic encephalopathy: Plan: Acute hepatic encephalopathy/hyperammonemia- Ammonia level 72 upon admission Given lactulose 20 mg p.o. in the ED, and will continue 3 times daily. Follow serial ammonia levels (2) Seizure disorder: Plan: Suspect secondary to previous alcohol withdrawal. On no particular medication at this time Standard seizure protocol precautions (3) Alcohol withdrawal: Plan: AWSS protocol with IV Ativan Thiamine 100 mg p.o. every morning Folic acid 1 mg p.o. every morning (4) Hypomagnesemia: Plan: Magnesium 1.3 upon admission. We will give 3 g of magnesium IV, recheck tomorrow (5) Hypokalemia: Plan: Potassium 3.4 upon admission Placed on NSS + KCl 20 mEq at 100 mils per hour Repeat laboratories every morning (6) Diabetes: Plan: Hold Jardiance Placed on Accu-Cheks before meals and at bedtime with NovoLog coverage per scale Check hemoglobin A1c (7) RLS (restless legs syndrome): Plan: Continue topiramate and ropinirole (8) Carotid artery stenosis: Plan: Symptoms are most likely related to acute hepatic encephalopathy, but if symptoms persistent, will perform further work-up (9) Hypertension: Plan: Hold meds at this time History of Present Illness Chief Complaint: The patient was sent to the emergency department from [facility] due to increasing confusion this evening, that began earlier in the day. Primary Care Provider: Matheus Riojas The patient is a 61-year-old male with a past medical history including vitamin B12 deficiency, alcoholic hepatitis, laceration of tragus of right ear, hypomagnesemia, hypokalemia, alcohol withdrawal delirium, high triglycerides, diabetes mellitus, pancytopenia, RLS, seizure disorder, carotid artery stenosis, alcohol dependence, major recurrent depression, hypertension, hyperlipidemia, anxiety and diverticulosis. Patient is transferred from [facility] facility due to worsening confusion and lethargy that began earlier in the day, and worsened into the evening. During assessment in the emergency department patient appeared lethargic, and made an effort to answer questions but did so slowly. Significant abnormal laboratories: Hemoglobin 11.0, hematocrit 32.6, platelets 126, potassium 3.4, glucose 154, magnesium 1.3, albumin 2.7, ammonia level 72, AST 147, ALT 119. Patient was COVID-19 negative in the ED Chest x-ray is negative. CT of head shows chronic small vessel disease CT angiography of head shows cavernous portion of ICA with a 30 to 40% narrowing, and distal left vertebral artery with 50 to 75% narrowing CT angiography head neck shows proximal right ICA stenosis of 50%, and a sending aortic arch 3.9 cm in diameter. Patient did receive lactulose 20 mg from the ED Allergies Allergy/AdvReac Type Severity Reaction Status Date / Time bee venom protein (honey bee) Allergy Severe ANAPHYLAXIS Verified 08/17/21 23:46 cat dander Allergy Intermediate Itchy/Watery Verified 08/17/21 23:46 Eyes, Itchy throat tamsulosin Allergy Intermediate Hives Verified 08/17/21 23:46 Home Medications Medication Instructions Recorded Confirmed Type epinephrine 0.3 mg/0.3 mL 0.3 mg IM DIRECTED PRN 03/21/19 08/18/21 History injection, auto-injector (EpiPen) pantoprazole 40 mg tablet,delayed 40 mg PO QAM 03/21/19 08/17/21 History release citalopram 40 mg tablet 40 mg PO DAILY tab 11/11/19 08/17/21 History melatonin 5 mg capsule 5 - 10 mg PO HS PRN 11/11/19 08/17/21 History aspirin 81 mg tablet,delayed 81 mg PO QAM #30 tab 03/26/20 08/17/21 Rx release buspirone 30 mg tablet 30 mg PO BID17 03/08/21 08/17/21 History empagliflozin 10 mg tablet 10 mg PO DAILY 03/08/21 08/17/21 History (Jardiance) metformin 1,000 mg tablet 1,000 mg PO BID17 03/08/21 08/17/21 History olmesartan 5 mg tablet 5 mg PO DAILY 03/08/21 08/17/21 History folic acid 1 mg tablet 1 mg PO QAM #30 tab 03/11/21 08/17/21 Rx thiamine HCl (vitamin B1) 100 mg 100 mg PO QAM #30 tab 03/11/21 08/17/21 Rx tablet (Vitamin B-1) ropinirole 0.5 mg tablet 0.5 mg PO HS 04/18/21 08/17/21 History rosuvastatin 40 mg tablet 40 mg PO DAILY 04/18/21 08/17/21 History clonidine HCl 0.1 mg tablet 0.1 mg PO TID PRN 08/17/21 08/17/21 History cyanocobalamin (vitamin B-12) 1,000 mcg PO DAILY 08/17/21 08/17/21 History 1,000 mcg tablet (Vitamin B-12) fenofibrate nanocrystallized 145 145 mg PO HS 08/17/21 08/17/21 History mg tablet hydroxyzine HCl 50 mg tablet 50 mg PO TID PRN 08/17/21 08/17/21 History icosapent ethyl 1 gram capsule 2 g PO BID 08/17/21 08/17/21 History (Vascepa) mirtazapine 30 mg tablet 30 mg PO HS 08/17/21 08/17/21 History multivitamin 1 tab PO DAILY 08/17/21 08/17/21 History topiramate 50 mg tablet 50 mg PO BID17 08/18/21 08/17/21 History Past Med/Surg History Medical History (Updated 08/18/21 @ 04:36 by Arun Powell MD) Alcohol abuse Anxiety Depression Diverticulosis Headache Headache Hyperlipidemia Hypertension Left arm weakness Panic attacks Prostate cancer (07/30/16) Suicidal behavior Suicidal ideation attempt to buy gun, was not able to buy one. TIA (transient ischemic attack) Vitamin B12 deficiency Surgical History History of cholecystectomy History of repair of ACL Family History Father , Mother age 56 of colon cancer Colorectal cancer Mother , the age 78 of a blood clot Dementia Clotting disorder Other Cancer Social History Smoking Status: Current every day smoker Tobacco Type: Cigars Cigarettes Per Day: 1 cigar per day. Quit cigarettes 30 years ago; Hx Alcohol Use: Yes ( no alcohol for 4 months. 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 The review of systems is otherwise negative other than for that already noted above, and at least 10 systems have been reviewed. Physical Exam Physical Exam: The patient is awake, disoriented and lethargic, normocephalic and atraumatic, lying in bed and in no acute distress. HEENT--PERRL, EOMI, mucous membranes and oropharynx dry. Neck--supple. No JVD. No bruits. Thyroid normal, trachea midline, no adenopathy. Heart--normal S1 and S2. No murmurs, rubs or gallops. Lungs--clear bilaterally, no respiratory distress, no accessory muscle use. Abdomen--normal bowel sounds and soft. Nontender. Nondistended, no hernias or masses, no organomegaly. Extremities--no cyanosis or clubbing. No edema. Dermatologic--normal skin turgor, normal color, no abnormal lymph nodes, no rash. Neurologic--cranial nerves II through XII grossly intact. Rheumatologic--normal range of motion. Psychiatric--normal affect. Results & Data Results & Data ([facility]) Vital Signs (Past 12 Hours) Vital Signs Temp Pulse Pulse Resp BP BP Pulse Ox 08/18/21 01:30 61 15 126/83 91 08/18/21 01:00 62 15 135/84 96 08/18/21 00:30 60 24 140/85 97 08/17/21 23:32 98.1 F 63 16 134/87 98 08/17/21 23:30 62 22 134/87 97 08/17/21 23:23 98.1 F 62 16 126/82 98 Laboratory Results Laboratory Results WBC 3.70 K/uL (4.8-10.8) L 08/17/21 22:38 RBC 3.59 M/uL (4.7-6.1) L 08/17/21 22:38 Hgb 11.0 g/dL (14.0-18.0) L 08/17/21 22:38 Hct 32.6 % (42-52) L 08/17/21 22:38 MCV 90.8 fL (80-100) 08/17/21 22:38 MCH 30.6 pg (25-34) 08/17/21 22:38 MCHC 33.7 g/dL (32-36) 08/17/21 22:38 RDW Std Deviation 52.3 fL (36.4-46.3) H 08/17/21 22:38 RDW Coeff of Antonio 15.5 % (11.5-14.5) H 08/17/21 22:38 Plt Count 126 K/uL (130-400) L 08/17/21 22:38 MPV 10.1 fL (7.4-10.4) 08/17/21 22:38 Immature Gran % (Auto) 0.3 % 08/17/21 22:38 Neut % (Auto) 53.7 % 08/17/21 22:38 Lymph % (Auto) 28.1 % 08/17/21 22:38 [place] % (Auto) 13.5 % 08/17/21 22:38 Eos % (Auto) 4.1 % 08/17/21 22:38 Baso % (Auto) 0.3 % 08/17/21 22:38 Neut # (Auto) 1.99 K/uL (1.4-6.5) 08/17/21 22:38 Lymph # (Auto) 1.04 K/uL (1.2-3.4) L 08/17/21 22:38 [place] # (Auto) 0.50 K/uL (0.11-0.59) 08/17/21 22:38 Eos # (Auto) 0.15 K/uL (0-0.5) 08/17/21 22:38 Baso # (Auto) 0.01 K/uL (0-0.2) 08/17/21 22:38 Immature Gran # (Auto) 0.01 K/uL (0.00-0.02) 08/17/21 22:38 PT 10.3 Seconds (9.0-12.0) 08/17/21 22:38 INR 1.0 (0.9-1.1) 08/17/21 22:38 APTT 25.2 Seconds (21.0-31.0) 08/17/21 22:38 PTT Ratio 1.0 08/17/21 22:38 Sodium 144 mmol/L (136-145) 08/17/21 22:38 Potassium 3.4 mmol/L (3.5-5.1) L 08/17/21 22:38 Chloride 114 mmol/L (98-107) H 08/17/21 22:38 Carbon Dioxide 22 mmol/L (21-32) 08/17/21 22:38 Anion Gap 7.0 (3-11) 08/17/21 22:38 BUN 11 mg/dl (7-18) 08/17/21 22:38 Creatinine 0.87 mg/dl (0.6-1.4) 08/17/21 22:38 Est Cr Clr Drug Dosing 114.4 ml/min 08/17/21 22:38 Est GFR ( Amer) 106.5 ml/min 08/17/21 22:38 Est GFR (Non-Af Amer) 91.9 ml/min 08/17/21 22:38 BUN/Creatinine Ratio 12.1 (10-20) 08/17/21 22:38 Glucose 154 mg/dl (70-99) H 08/17/21 22:38 Calcium 9.4 mg/dl (8.5-10.1) 08/17/21 22:38 Magnesium 1.3 mg/dl (1.8-2.4) L 08/17/21 22:38 Total Bilirubin 0.4 mg/dl (0.2-1) 08/17/21 22:38 AST 147 U/L (15-37) H 08/17/21 22:38 ALT 119 U/L (12-78) H 08/17/21 22:38 Alkaline Phosphatase 102 U/L (45-117) 08/17/21 22:38 Ammonia 72.0 umol/L (11-32) H 08/17/21 23:54 Troponin I < 0.015 ng/ml (0-0.045) 08/17/21 22:38 Total Protein 6.2 gm/dl (6.4-8.2) L 08/17/21 22:38 Albumin 2.7 gm/dl (3.4-5.0) L 08/17/21 22:38 Globulin 3.5 gm/dl (2.5-4.0) 08/17/21 22:38 Albumin/Globulin Ratio 0.8 (0.9-2) L 08/17/21 22:38 Ethyl Alcohol mg/dL < 3.0 mg/dl (0-3) 08/17/21 23:54 COVID-19 Eval Order Covid19 at [facility] 08/18/21 00:29 SARS-CoV-2 (PCR) NEGATIVE (Negative) 08/18/21 00:29 Diagnostic Findings [facility] Patient: FRED HOGAN (Male) : 56 Status: ER Date: 08/18/21 00:49 Room #: History: WEAKNESS Slices: [phone] Priors: Tech: Mike Rivera @ [phone] Exams: CT HEAD Contrast: Accession Numbers: [id number] Referring Physician: REFERRED SELF Preliminary Findings Only See Final Report For Complete Findings CT HEAD: Comparison to MRI brain from March 09, 2021. Mild periventricular white matter low density bilaterally consistent chronic small vessel disease, unchanged. There is no evidence of acute large vessel infarct or intracranial hemorrhage. The paranasal sinuses and mastoid air cells are normal. No skull fracture or scalp hematoma is seen. Radiologist: Alphonse Santos MD Study ready at 01:03 and initial results transmitted at 01:25 *This report constitutes a preliminary interpretation only. Non-acute findings felt to be unrelated to the clinical presentation may not be discussed in this report. The study will be interpreted and a final report will be generated by the local Radiologist the following shift. To reach the [facility] radiology department call [phone]. If a discrepancy is found between the preliminary and final interpretations of this study, please notify us via our Client Portal at [email or web address], under QA Exams. You can also fax this report with a description of the discrepancy, or include the final report, to our daytime fax number [phone]. If faxing, please indicate the severity of discrepancy using one of the following categories: [ ] 1 - Agree/Informational [ ] 2 - Unlikely to Affect Management [ ] 3 - Possible Eventual Change of Management [ ] 4 - Probable Immediate Change of Management For all other patient related information, please fax us at [phone] . [id number] [facility] Patient: FRED HOGAN (Male) : 56 Status: ER Date: 08/18/21 00:50 Room #: History: WEAKNESS Slices: 513 Priors: Tech: Mike Rivera @ [phone] Exams: CTA HEAD Contrast: IV Amt: 118 ML OPTIRAY 320 Accession Numbers: [id number] Referring Physician: REFERRED SELF Preliminary Findings Only See Final Report For Complete Findings CTA HEAD: Comparison to March 08, 2021 Severe calcification of the cavernous portions of the distal internal carotid arteries bilaterally with 30-40% stenosis bilaterally, unchanged. Calcified plaque in the distal left vertebral artery with 50-70% stenosis at the level of the paris magnum, unchanged. The basilar artery is widely patent. The anterior, middle, and posterior cerebral arteries appear within normal limits. No aneurysm, vascular malformation, or arterial thrombus is identified. Radiologist: Alphonse Santos MD Study ready at 01:09 and initial results transmitted at 01:30 *This report constitutes a preliminary interpretation only. Non-acute findings felt to be unrelated to the clinical presentation may not be discussed in this report. The study will be interpreted and a final report will be generated by the local Radiologist the following shift. To reach the [facility] radiology department call [phone]. If a discrepancy is found between the preliminary and final interpretations of this study, please notify us via our Client Portal at [email or web address], under QA Exams. You can also fax this report with a description of the discrepancy, or include the final report, to our daytime fax number [phone]. If faxing, please indicate the severity of discrepancy using one of the following categories: [ ] 1 - Agree/Informational [ ] 2 - Unlikely to Affect Management [ ] 3 - Possible Eventual Change of Management [ ] 4 - Probable Immediate Change of Management For all other patient related information, please fax us at [phone]. [id number] [facility] Patient: FRED HOGAN (Male) : 56 Status: ER Date: 08/18/21 00:52 Room #: History: WEAKNESS Slices: 747 Priors: Tech: Mike Rivera @ [phone] Exams: CTA NECK Contrast: IV Amt: 118 ML OPTIRAY 320 Accession Numbers: [id number] Referring Physician: REFERRED SELF Preliminary Findings Only See Final Report For Complete Findings CTA NECK: The ascending aortic arch is borderline dilated measuring 3.9 cm in diameter. There is no dissection. The great vessel origins are widely patent. Heavily calcified plaque in the right carotid bulb causing 50% stenosis of the proximal right internal carotid artery. Trace amount of plaque at the left carotid bifurcation. No stenosis of the left common or internal carotid arteries. 20% stenosis of the origin of the right vertebral artery which is otherwise widely patent. The left vertebral artery is smaller than the right but appears widely patent up to the paris magnum at which point there is a calcified plaque causing 50-70% stenosis. Radiologist: Alphonse Santos MD Study ready at 01:10 and initial results transmitted at 01:33 *This report constitutes a preliminary interpretation only. Non-acute findings felt to be unrelated to the clinical presentation may not be discussed in this report. The study will be interpreted and a final report will be generated by the local Radiologist the following shift. To reach the hospital radiology department call [phone]. If a discrepancy is found between the preliminary and final interpretations of this study, please notify us via our Client Portal at [email or web address], under QA Exams. You can also fax this report with a description of the discrepancy, or include the final report, to our daytime fax number [phone]. If faxing, please indicate the severity of discrepancy using one of the following categories: [ ] 1 - Agree/Informational [ ] 2 - Unlikely to Affect Management [ ] 3 - Possible Eventual Change of Management [ ] 4 - Probable Immediate Change of Management For all other patient related information, please fax us at [phone]. [id number] Code Status & VTE Plan Code Status Full code VTE Prophylaxis Plan VTE Prophylaxis will be ordered: Yes PG Care Time/CCT Total # of Minutes Spent Total Time Spent with Patient: Total time spent is greater than 50% in coordination of care (as documented) at patient's floor/unit and/or counseling patient: Coding Level of Care Code 96670 Initial Inpt Care Lvl 3 Diagnoses Acute hepatic encephalopathy K72.00 Seizure disorder G40.909 Alcohol withdrawal F10.239 Hypokalemia E87.6 Hypomagnesemia E83.42 Diabetes E11.9 RLS (restless legs syndrome) G25.81 Carotid artery stenosis I65.29 Hypertension I10 Hypertension type: essential hypertension (1) Hypertension Hypertension type: essential hypertension Qualified Code(s): I10 - Essential (primary) hypertension
[2021-08-18] MEDS: MAGNESIUM SULFATE / D5W 1 GM/100 ML BAG IV SCH ×3 (02:37→07:36)
[2021-08-18] MEDS ORDERED: DEXTROSE 50% 50 ML SYRINGE IV PRN (04:56)
[2021-08-18] MEDS ORDERED: GLUCAGON FOR INJ 1 MG VIAL SQ PRN (04:56)
[2021-08-18] MEDS ORDERED: ONDANSETRON INJ 2 MG/ML 2 ML VIAL IV PRN (04:56)
[2021-08-18] MEDS ORDERED: GLUCOSE 40% GEL 15 GM TUBE PO PRN (04:56)
[2021-08-18] MEDS ORDERED: GLUCOSE 10 TABS/TUBE PO PRN (04:56)
[2021-08-18] MEDS ORDERED: CARBOHYDRATES FOR HYPOGLYCEMIA PO PRN (04:56)
[2021-08-18] MEDS ORDERED: NSS + 20MEQ KCL 20 MEQ/1,000 ML BAG IV SCH (04:56)
[2021-08-18] MEDS ORDERED: ENOXAPARIN INJ 40 MG/0.4 ML SYR SQ SCH (06:00)
--- NOTE | 2021-08-18 06:49 | CT Scan Report ---
CT head/brain wo con CLINICAL HISTORY: 61 years-old Male with Stroke Like Symptoms. Acute strokelike symptoms TECHNIQUE: Multiple axial CT images of the head were obtained without contrast. A dose lowering tech nique was utilized adhering to the principles of ALARA. COMPARISON: Brain MRI 03/09/2021, head CT 03/08/2021 FINDINGS: No acute intracranial hemorrhage, midline shift, intracranial mass, hydrocephalus, territorial ischem ia or abnormal extra-axial collection. Mild involutional changes. Mild white matter hypodensities sug gestive of chronic microvascular ischemic disease. Cerebral vascular calcifications. The calvarium is intact. Small left mastoid effusion. The right mastoid air cells and paranasal sinu ses are clear. Unremarkable soft tissues and orbits. IMPRESSION: No acute intracranial abnormality. ACT 112: Negative or not required by law. The above report was generated using voice recognition software. It may contain grammatical, syntax o r spelling errors. Electronically signed by: Neil Orta M.D. 08/18/2021 6:47 AM
--- NOTE | 2021-08-18 07:24 | CT Scan Report ---
HEAD & NECK CTA HISTORY: Weakness. Stroke Like Symptoms TECHNIQUE: Multiaxial CT images of the head were performed following the intravenous administration o f contrast to evaluate the major cerebral vessels. Multiaxial CT images of the neck were also perform ed following the intravenous administration of contrast to evaluate the major cervical vessels. Maxim um intensity projection images were also obtained. A dose lowering technique was utilized adhering to the principles of ALARA. COMPARISON: 03/08/2021.. FINDINGS: There is no mass, hematoma, midline shift, or acute infarct. Moderate stenosis within the bilateral c arotid siphons and distal left vertebral artery due to the calcified plaque. There is no significant stenosis, occlusion, or aneurysm seen within the bilateral ACAs, MCAs, or sole polisher. The major dural venou s sinuses are patent. The basilar artery is patent. The distal right vertebral artery is also patent. The aortic arch and proximal great vessels are widely patent. Heavily calcified plaque within the r ight carotid bulb resulting in 50% stenosis. This remains unchanged. There is a stenosis within the b ilateral common carotid or left internal carotid arteries. The cervical vertebral arteries showed no significant stenosis, occlusion, or dissection. IMPRESSION: 1. Moderate stenosis within the bilateral carotid siphons, unchanged. Otherwise, no significant steno sis, occlusion, or aneurysm within the bilateral ACAs, MCAs, sole polisher. 2. Heavily calcified plaque within the right carotid bulb resulting in 50% stenosis, unchanged. 3. No significant stenosis within the bilateral common carotid or left internal carotid arteries. 4. Moderate stenosis within the distal left vertebral artery. ACT 112: Negative or not required by law. Electronically signed by: Luciano Chaney M.D. 08/18/2021 7:23 AM
--- NOTE | 2021-08-18 07:24 | CT Scan Report ---
HEAD & NECK CTA HISTORY: Weakness. Stroke Like Symptoms TECHNIQUE: Multiaxial CT images of the head were performed following the intravenous administration o f contrast to evaluate the major cerebral vessels. Multiaxial CT images of the neck were also perform ed following the intravenous administration of contrast to evaluate the major cervical vessels. Maxim um intensity projection images were also obtained. A dose lowering technique was utilized adhering to the principles of ALARA. COMPARISON: 03/08/2021.. FINDINGS: There is no mass, hematoma, midline shift, or acute infarct. Moderate stenosis within the bilateral c arotid siphons and distal left vertebral artery due to the calcified plaque. There is no significant stenosis, occlusion, or aneurysm seen within the bilateral ACAs, MCAs, or fire protection designer. The major dural venou s sinuses are patent. The basilar artery is patent. The distal right vertebral artery is also patent. The aortic arch and proximal great vessels are widely patent. Heavily calcified plaque within the r ight carotid bulb resulting in 50% stenosis. This remains unchanged. There is a stenosis within the b ilateral common carotid or left internal carotid arteries. The cervical vertebral arteries showed no significant stenosis, occlusion, or dissection. IMPRESSION: 1. Moderate stenosis within the bilateral carotid siphons, unchanged. Otherwise, no significant steno sis, occlusion, or aneurysm within the bilateral ACAs, MCAs, fire protection designer. 2. Heavily calcified plaque within the right carotid bulb resulting in 50% stenosis, unchanged. 3. No significant stenosis within the bilateral common carotid or left internal carotid arteries. 4. Moderate stenosis within the distal left vertebral artery. ACT 112: Negative or not required by law. Electronically signed by: Luciano Chaney M.D. 08/18/2021 7:23 AM
[2021-08-18] MEDS ORDERED: INSULIN ASPART 100 UNITS/ML 3 ML PEN SC SCH (07:30)
[2021-08-18 08:35] VITALS: TEMP 98.2; O2SAT 97
[2021-08-18] MEDS ORDERED: TOPIRAMATE 50 MG TAB PO SCH (09:00)
[2021-08-18] MEDS ORDERED: MULTIVITAMIN TAB PO SCH (09:00)
[2021-08-18] MEDS ORDERED: PANTOprazole 40 MG TAB PO SCH (09:00)
[2021-08-18] MEDS ORDERED: busPIRone 15 MG TAB PO SCH (09:00)
[2021-08-18] MEDS ORDERED: CYANOCOBALAMIN 500 MCG TABLET (VITAMIN B-12) PO SCH (09:00)
[2021-08-18] MEDS ORDERED: ROSUVASTATIN CALCIUM 20 MG TAB PO SCH (09:00)
[2021-08-18] MEDS ORDERED: ASPIRIN 81 MG ECTAB PO SCH (09:00)
[2021-08-18] MEDS ORDERED: CITALOPRAM 40 MG TAB PO SCH (09:00)
[2021-08-18] MEDS ORDERED: THIAMINE HCL 100 MG TAB PO SCH ×2 (09:00)
[2021-08-18] MEDS ORDERED: LACTULOSE SYRUP 20 GM/30 ML UDC PO SCH (09:00)
[2021-08-18] MEDS ORDERED: FOLIC ACID 1 MG TAB PO SCH ×2 (09:00)
--- NOTE | 2021-08-18 09:27 | XRay Report ---
XR chest 1V portable HISTORY: Left-sided weakness. COMPARISON: Chest 03/08/2021. FINDINGS: The cardiac silhouette is top normal in size. No focal lung consolidations to suggest pneum onia. No evidence for pulmonary edema. No pleural effusions. No pneumothorax. There are old, healed l eft anterior rib fractures. IMPRESSION: No significant change compared to the prior study. No acute process. ACT 112: Negative or not required by law. Electronically signed by: Luciano Chaney M.D. 08/18/2021 9:25 AM
--- NOTE | 2021-08-18 09:42 | Electrocardiogram Report ---
Test Reason : Blood Pressure : / mmHG Vent. Rate : 061 BPM Atrial Rate : 061 BPM P-R Int : 152 ms QRS Dur : 092 ms QT Int : 424 ms P-R-T Axes : 044 026 033 degrees QTc Int : 426 ms Normal sinus rhythm Low voltage QRS Borderline ECG When compared with ECG of 08-MAR-2021 18:59, No significant change was found Confirmed by Timothy Rojas ([id number]) on 08/18/2021 9:42:05 AM Referred By: REFERRED SELF Confirmed By:Moreno Rojas
[2021-08-18 11:46] VITALS: BP 132/83; PULSE 65
--- NOTE | 2021-08-18 18:23 | Discharge Summary ---
Date of Service August 18, 2021 Admission HPI Per Admitting Provider The patient is a 61-year-old male with a past medical history including vitamin B12 deficiency, alcoholic hepatitis, laceration of tragus of right ear, hypomagnesemia, hypokalemia, alcohol withdrawal delirium, high triglycerides, diabetes mellitus, pancytopenia, RLS, seizure disorder, carotid artery stenosis, alcohol dependence, major recurrent depression, hypertension, hyperlipidemia, anxiety and diverticulosis. [facility] due to worsening confusion and lethargy that began earlier in the day, and worsened into the evening. During assessment in the emergency department patient appeared lethargic, and made an effort to answer questions but did so slowly. Significant abnormal laboratories: Hemoglobin 11.0, hematocrit 32.6, platelets 126, potassium 3.4, glucose 154, magnesium 1.3, albumin 2.7, ammonia level 72, AST 147, ALT 119. Patient was COVID-19 negative in the ED Chest x-ray is negative. CT of head shows chronic small vessel disease CT angiography of head shows cavernous portion of ICA with a 30 to 40% narrowing, and distal left vertebral artery with 50 to 75% narrowing CT angiography head neck shows proximal right ICA stenosis of 50%, and a sending aortic arch 3.9 cm in diameter. Patient did receive lactulose 20 mg from the ED Principal Diagnosis difficulty word finding - TIA vs hepatic encephalopathy Discharge Exam In general he is awake and alert oriented x3 a very detailed oriented to the situation. No distress. HEENT normocephalic atraumatic mucous membranes moist. Breathing unlabored no accessory muscle use good effort. Skin shows no rashes no pallor or icterus. Neuro without focal deficits, cranial nerves II through XII grossly intact gross motor and sensory are intact, normal and steady gait. Mentation is very intact with good detail, the only time he really seems hazy on his yesterday's situation surrounding admission. Discharge Data Allergies Allergy/AdvReac Type Severity Reaction Status Date / Time bee venom protein (honey bee) Allergy Severe ANAPHYLAXIS Verified 08/17/21 23:46 cat dander Allergy Intermediate Itchy/Watery Verified 08/17/21 23:46 Eyes, Itchy throat tamsulosin Allergy Intermediate Hives Verified 08/17/21 23:46 Consultations 08/18/21 01:38 ED Decision to Admit Stat Ordered Studies 08/17/21 23:07 CT angio head w con Urgent CT angio neck with con Urgent CT head/brain wo con Urgent Hospital Course (1) Word finding difficulty: Transient and has since resolved -Much of his situation appears consistent with hepatic encephalopathy, however, it is hard to discount the questionable facial droop that was noted at his rehab facilityparticularly given his known and rather widespread vascular disease. In discussion with patient, it seems that it will be almost impossible to truly tease apart brief episode of hepatic encephalopathy from a word finding TIA. He is okay with this, and okay with the management as treating for both with ongoing clinical follow-up. ---> For possible TIA, will get an outpatient lipid panel (he was very much desirous of a prompt discharge so as to not miss out on more of his rehab counseling sessions, which he feels are very helpful this time)but his lipids were adequately suppressed back in February, and he is on a high intensity statin with rosuvastatin 40. His A1c in February was 5.9, I discussed with him it has been ordered but is pending at time of discharge, but can be an outpatient follow-up issue, his blood pressures seem reasonable, these would be followed as an outpatient, and we would have him on both aspirin and Plavix for a month follow ed by Plavix alone. He does have large vessel vascular disease, but none appears overtly culprit to look at this as a carotid or MCA TIAparticularly given that he follows actively with vascular surgerywe will have him continue to follow with them. And he did not show atrial fibrillation, echocardiogram was not done as an inpatient because of the question of differentials prior to my seeing him, and was not ordered prior to him leaving due to his urgency of wanting to get back to his rehab counseling sessionsit can be done as an outpatient, but more practically I have asked that he get no event monitor to screen for paroxysmal A. fib ---> As it relates to hepatic encephalopathyhe fortunately does not show significant worry features for permanent liver disease such as an elevated INR o r elevated bilirubin, discussed with patient that with sobriety it is possible that his difficulty processing ammonia/other liver toxins would be able to improve over timefor now, lactulose 20 g twice daily with follow-up ammonia level/follow-up mental status as an outpatient, discussed the unfortunate side effect of often crampy and gassy diarrhea with lactulose, but discussed the rationale on why it is the mainstay of management for hepatic encephalopathy. See discharge instructions given to patient for further detail Stable for home, outpatient follow-up with PCP next week, outpatient labs next week, cardiac event monitor to be set up. Total Time Total Time Spent Total Time Spent (In Minutes): >30 Discharge Plan Discharge Items Patient Disposition: Drug & Alcohol Rehab Reason For Visit: HEPATIC ENCEPHALOPATHY Discharge Diagnosis: hepatic encephalopathy vs tia Activity: Resume your previous activity Non-emergency contact: Primary Care Provider Call non-emergency contact if: you have any medication questions and your symptoms worsen Follow-up/Referrals: Matheus Riojas [Primary Care Provider] - Diet: Carb Consistent or DM2 Addtl Attending Provider Instructions: Difficulty with word findinghepatic encephalopathy versus TIA -As we discussed, your symptoms, particularly given that the people at [facility] thought you had a little bit of a facial droop, and your recollection of it feeling similar to prior TIAsall add up to making a TIA highly possible. At the same time, given the liver disease, and your elevated ammonia level, we certainly see a symptom complex like you worse all the time with what is called hepatic encephalopathy. Both will be described in detail below, and at the current time, the safest approach will be to manage you as though both were equally possible, and as you follow-up with Dr. Riojas over time, how things progress with symptoms, ammonia levels, etc. will help "break the tie" TIA -TIA stands for "transient ischemic attack"what that basically means is a blockage of blood flow to part of your brain, but before any brain cells are killed off, your body is able to restore blood flow. -We typically look for reasons for blockage of blood flow to the brain in 3 main areaswith you the most likely is atherosclerosis of the blood vessels up in your brain, but we also pay attention to the large blood vessels going to the brain, and any reason for your heart to "flick off clots" -Because you do have carotid artery disease, that is always a possibility, but it really overall looks very stable to before, and so I doubt it was the culprit if yesterday's events were a TIA. That said, medical management for risk reduction will be helpful regardless, and I would definitely want you to continue to follow with neurology and your vascular surgeon. -Simply because "common things are common" we will be asking the cardiology o ffice to get you set up with a cardiac event monitorwhere they will follow your rhythm for about 2 weeks, to screen for an abnormal rhythm called atrial fibrillationwhen people have atrial fibrillation that does allow clots to form in the heart, which can cause TIAs, but you are not really showing me any reason to be suspicious of this. The main reason to screen for it is simply because it is a culprit fairly commonly -Most likely, we are looking at small blood vessel atherosclerosis up in the brain. It is highly likely that a small plaque split open, a small clot formed, but before any brain tissue was killed off, your body dissolve the clot and restored blood flow. The biggest things we do for that are reducing risk for clogging arteries further (see below) and juggle your antiplatelet blood thinner medicines. The reason we do that is the time. Around the TIA someone is a little bit more prone to it happening again, so we do an overlap of more potent blood thinning for a month or so, and then switch to a slightly stronger blood thinner. -Practically what that means is we will have you take aspirin and Plavix (clopidogrel) both together for about a month, and then in a month we will have you stop the aspirin and just take the Plavix alone. -The other reasons for you to be clogging arteries further seem to be under pretty good controlyour A1c today is pending, but your last A1c in February was 5.9. While high sugars clog arteries, generally speaking an A1c less than 7 is not really a risky range for clogging arteries. The admitting team did not enter a cholesterol panel, and in the interest of getting you back to rehab I have not added it right now because I did not want to delay your discharge, but back in February, your cholesterols were adequately suppressed. Furthermore, you are on a good dose of a good statinrosuvastatin 40 mgwhich as we discussed not only lowers cholesterol to keep it from building more plaque, but actually helps to stabilize the plaque that is already in the artery, making it less likely to split open. -Continue to follow-up with Dr. Landon endovascular surgeon to make sure these risks continue to stay suppressed Hepatic encephalopathy -As above noted, it is almost impossible to tease apart, at this point time, whether your symptoms were from a TIA or from hepatic encephalopathy -Hepatic encephalopathy is a buildup of toxins that her liver normally processes, and whenever liver is impaired in function, a lot of these toxins can build up, leading to a bit of a "intoxication" of liver toxins. -Ammonia is the most reliable of these to measure on lab test, and your ammonia level was a bit up (72, upper limits of normal about 32)and so it certainly plausible that hepatic encephalopathy led to your difficulty in word finding as well. The main difference between the 2 as far as your appearance, would be whether or not that facial droop was truly present, and of course since it either was never there or went away, it is almost impossible for me to distinguish one from the other. -The main way we manage hepatic encephalopathy acutely is to have you on lactulose. As we discussed, the unfortunate problem with lactulose as it does tend to cause a bit of a gassy, crampy diarrhea. But, the main reason we use it is because in addition to making you "poop out the ammonia" it actually changes how your gutt bacteria process ammonia making it harder to absorb. -For now, we will send you out on 20 g of lactulose twice a day. If you find that you are having more than 2-3 bowel movements a day, talk with Dr. Riojas, as we will likely be able to reduce the dose. At the same time he might need to bump it up a little over time depending on how you are doing. -As we discussed, your current push for sobriety should be very helpful in this regard, because while I would not be able to predict the future with total reliability, I have definitely seen times where people have gone from impaired liver function to normal function with prolonged sobrietywhich means that her current conundrum of hepatic encephalopathy/lactulose does not necessarily have to be your for of her normal. To do: -Take aspirin and Plavix together for a month, then stop the aspirin and just take Plavix daily -Take lactulose 20 g twice a day -Follow-up with Dr. Riojas in the next week or so, and have him check follow-up lab workmost notably an updated cholesterol panel if he is not done 1 since the one we had in February, and to continue to follow your liver numbers including ammonia -Expect a call from the cardiology office in regards to the cardiac event monitor in the near future. Pending Studies at Discharge: No Stand-Alone Forms: My [employer], Smoking Cessation Skilled Items Patient informed of condition?: Yes DNR: No Discharge Level of Care: Other Communicable Disease: No Discharge Prognosis: Stable Lines: None Urinary Catheter: No Medications and DC Order Prescriptions: New clopidogrel 75 mg tablet 75 mg PO DAILY Qty: 30 RF: 0 lactulose 10 gram/15 mL solution 20 g PO BID Qty: 473 RF: 0 Continued citalopram 40 mg tablet 40 mg PO DAILY RF: 0 melatonin 5 mg capsule 5 - 10 mg PO HS PRN (Reason: Sleep) RF: 0 ropinirole 0.5 mg tablet 0.5 mg PO HS RF: 0 rosuvastatin 40 mg tablet 40 mg PO DAILY RF: 0 pantoprazole 40 mg Tablet,Delayed Release (Dr/Ec) 40 mg PO QAM RF: 0 epinephrine [EpiPen] 0.3 mg/0.3 mL Auto-Injector 0.3 mg IM DIRECTED PRN (Reason: Allergic Reaction) RF: 0 aspirin 81 mg Tablet,Delayed Release (Dr/Ec) 81 mg PO QAM Qty: 30 RF: 0 multivitamin Tablet 1 tab PO DAILY RF: 0 clonidine HCl 0.1 mg Tablet 0.1 mg PO TID PRN (Reason: ANXIETY/RESTLESSNESS X LOS/HR>/=70 AND BP>100/70) RF: 0 cyanocobalamin (vitamin B-12) [Vitamin B-12] 1,000 mcg Tablet 1,000 mcg PO DAILY RF: 0 hydroxyzine HCl 50 mg Tablet 50 mg PO TID PRN (Reason: ANXIETY X LOS) RF: 0 mirtazapine 30 mg Tablet 30 mg PO HS RF: 0 fenofibrate nanocrystallized 145 mg Tablet 145 mg PO HS RF: 0 icosapent ethyl [Vascepa] 1 gram Capsule 2 g PO BID RF: 0 topiramate 50 mg tablet 50 mg PO [id number] RF: 0 Jardiance 10 mg tablet 10 mg PO DAILY RF: 0 buspirone 30 mg tablet 30 mg PO [id number] RF: 0 olmesartan 5 mg tablet 5 mg PO DAILY RF: 0 metformin 1,000 mg tablet 1,000 mg PO [id number] RF: 0 thiamine HCl (vitamin B1) [Vitamin B-1] 100 mg Tablet 100 mg PO QAM Qty: 30 RF: 0 folic acid 1 mg Tablet 1 mg PO QAM Qty: 30 RF: 0 Discharge Orders: Discharge Order (Routine); Ordered 08/18/21 Ordered By: Stanislav Nolasco Admission Data Admit Date/Time: 08/18/21 02:28 Attending Provider: Stanislav Nolasco Admit Provider: Arun Powell Primary Care Provider: Matheus Riojas Other Providers: Arun Powell Other Interventions: Discharge Summary Assessment (RN) Last Done: 08/18/21 11:30 Coding Level of Care Code D/C DAY MANAGEMENT >30 MINS Diagnoses Word finding difficulty R47.89
[2021-08-18] MEDS ORDERED: FENOFIBRATE NANOCRYSTALLIZED 145 MG TABLET PO SCH (21:00)
[2021-08-18] MEDS ORDERED: rOPINIRole HCL 0.25 MG TABLET PO SCH (21:00)
[2021-08-18] MEDS ORDERED: MIRTAZAPINE TAB 15 MG TAB PO SCH (21:00)
== END 2021-08-18 13:45 | disposition alcohol treatment (31) | DRG 442 ==
LOC: ED 22:58 → SUATTDRO 08-18 02:28 → INTOOBSV 08-18 02:28 → EDINP 08-18 02:28
DX: F17.290 Nicotine dependence, other tobacco product, uncomplicated; I10 Essential (primary) hypertension; G40.89 Other seizures; E87.6 Hypokalemia; F10.239 Alcohol dependence with withdrawal, unspecified; E11.9 Type 2 diabetes mellitus without complications; E78.5 Hyperlipidemia, unspecified; R29.810 Facial weakness; R47.89 Other speech disturbances; Z79.84 Long term (current) use of oral hypoglycemic drugs; G25.81 Restless legs syndrome; Z85.46 Personal history of malignant neoplasm of prostate

== ENCOUNTER 2024-04-04 19:43 | Inpatient (IN) ==
--- NOTE | 2024-04-04 20:01 | Emergency Department Note ---
Impression & Plan Diverticulitis, Acute lower gastrointestinal bleeding, Left lower quadrant abdominal pain ED Provider Note NAME: FRED HOGAN AGE: 63 SEX: M : 1960 ARRIVES VIA: Walk-In INFORMANT: Patient ED PROVIDER(S): Mahesh Lyn MD CHIEF COMPLAINT: Abdominal pain, GI bleeding. PLAN: Disposition: Admit MEDICAL DECISION MAKING: The patient is a pleasant 63-year-old gentleman with a past medical history of prior alcohol dependence now 2 years in remission, history of hypertension, hyperlipidemia, GERD, carotid artery stenosis on Plavix, anxiety who presents to the emergency department via walk-in provided by his and son for evaluation of left lower quadrant abdominal pain and red blood per rectum that began this evening. Patient reports he was feeling well this morning and the symptoms occurred abruptly tonight. He denies any fevers, chills, cough, congestion. He reports feeling nauseated but denies any vomiting. On evaluation the patient is in no acute distress, afebrile with blood pressure 150s/80s and vital signs otherwise stable. He has mild left lower quadrant discomfort without discrete tenderness. WBC within normal limits. H/H 14.9/41.7 similar to recent values. Chemistry without metabolic acidosis. Electrolytes and LFTs without significant abnormality. Lipase not elevated. Medical alcohol is undetectable. CT of the abdomen pelvis was performed and demonstrates wall thickening of the mid sigmoid colon suggestive of uncomplicated acute diverticulitis. Additional note is made of short segment of wall thickening to correlate clinically with colonoscopy following acute illness. Additional findings of nodularity of the liver and splenomegaly related to patient's prior alcohol dependence. Findings reviewed the patient and family bedside. Data reviewed plan for admission for further management of diverticulitis and lower GI bleeding. Type and screen was obtained. Given patient is hemodynamically stable as is his H/H no indication for transfusion at this time. Case was discussed with Dr. Powell, [facility] hospitalist, who will evaluate the patient for admission. Further management per admitting team. Triage Nursing notes reviewed and agree them. Prior/external medical records reviewed Vital Signs: reviewed Differential diagnosis: Diverticulosis, AVM, coagulopathy, colitis, inflammatory bowel disease, malignancy, Yasmin-Mc tear, esophagitis, peptic ulcer disease, variceal bleed, gastritis, epistaxis, fissure, hemorrhoids, as well as other pathologies. ER treatment provided: See below. Diagnostics interpreted by me: Cardiac Monitoring: An order for continuous cardiac monitoring was placed and demonstrated normal sinus rhythm, 64 bpm, no ectopy. Laboratory studies: See below Imaging studies: See below Consultation(s): Case was discussed with Dr. Powell, [facility] hospitalist, who will evaluate the patient for admission. HPI: The patient is a pleasant 63-year-old gentleman with a past medical history of prior alcohol dependence now 2 years in remission, history of hypertension, hyperlipidemia, GERD, carotid artery stenosis on Plavix, anxiety who presents to the emergency department via walk-in provided by his and son for evaluation of left lower quadrant abdominal pain and red blood per rectum that began this evening. Patient reports he was feeling well this morning and the symptoms occurred abruptly tonight. He denies any fevers, chills, cough, congestion. He reports feeling nauseated but denies any vomiting. ROS: See above HPI for pertinent positives & negatives. A total of 10 systems reviewed and were otherwise negative. VITALS:See Below PHYSICAL EXAMINATION: GENERAL: Awake, alert, in no distress HENT: Normocephalic, atraumatic. Oropharynx with dry mucous membranes and otherwise unremarkable. EYES: Normal conjunctiva. Sclera non-icteric. NECK: Supple. No nuchal rigidity. FROM. No JVD. RESPIRATORY: Clear to auscultation. CARDIAC: Regular rate, normal rhythm. Extremities warm and well perfused. Pulses equal. ABDOMEN: Soft, non-distended. Mild left lower quadrant discomfort without discrete tenderness to palpation. No rebound or guarding. MUSCULOSKELETAL: Chest examination reveals no tenderness. The back is symmetrical on inspection without obvious abnormality. There is no CVA tenderness to palpation. No joint edema. LOWER EXTREMITIES: Calves are equal size bilaterally and non-tender. No edema. No discoloration. NEURO: Normal sensorium. No sensory or motor deficits noted. SKIN: No rash or jaundice noted. Mahesh Lyn MD Past Med/Surg History Problem List (Updated 04/05/24 @ 06:14 by Mahesh Lyn MD) Left lower quadrant abdominal pain (Acute) Diverticulitis (Acute) Liver cirrhosis Portal hypertension Splenomegaly Sigmoid diverticulitis Acute lower gastrointestinal bleeding (Acute) H/O traumatic subdural hematoma Hypertension (Chronic) Hyperlipidemia (Chronic) Anxiety (Chronic) Diverticulosis (Chronic) Major depression, recurrent EtOH dependence Carotid artery stenosis (Chronic) left 75% requiring endarterectomy, [facility] Alcohol intoxication (Acute) Seizure disorder (Chronic) RLS (restless legs syndrome) (Chronic) Pancytopenia Headache Diabetes High triglycerides Alcohol withdrawal delirium (Acute) Unwitnessed fall (Acute) Laceration of tragus of right ear (Acute) Hypomagnesemia (Acute) Hypokalemia (Acute) Alcoholic hepatitis DVT prophylaxis Vitamin B12 deficiency Acute hepatic encephalopathy (Acute) Alcohol withdrawal Word finding difficulty Medical History Suicidal behavior Suicidal ideation attempt to buy gun, was not able to buy one. Panic attacks Alcohol abuse Depression TIA (transient ischemic attack) Prostate cancer (07/30/16) Left arm weakness Surgical History History of cholecystectomy History of repair of ACL Family History Father , Mother age 56 of colon cancer Colorectal cancer Mother , the age 78 of a blood clot Dementia Clotting disorder Other Cancer Social History Smoking Status: Current some day smoker Tobacco Type: Cigars Cigarettes Per Day: 1 cigar per day. 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 [employer] Feels Safe at Home: Yes Assistive Devices: Glasses Allergies Allergies Allergy/AdvReac Type Severity Reaction Status Date / Time bee venom protein (honey bee) Allergy Severe ANAPHYLAXIS Verified 04/05/24 00:52 cat dander Allergy Intermediate Itchy/Watery Verified 04/05/24 00:52 Eyes, Itchy throat tamsulosin Allergy Intermediate Hives Verified 04/05/24 00:52 Home Meds Home Medications Medication Instructions Recorded Confirmed epinephrine 0.3 mg/0.3 mL 0.3 mg IM DIRECTED PRN Allergic 03/21/19 04/05/24 injection, auto-injector (EpiPen) Reaction pantoprazole 40 mg tablet,delayed 40 mg PO QAM 03/21/19 04/05/24 release buspirone 30 mg tablet 30 mg PO BID17 03/08/21 04/05/24 metformin 1,000 mg tablet 1,000 mg PO BID17 03/08/21 04/05/24 rosuvastatin 40 mg tablet 40 mg PO QPM 04/18/21 04/05/24 clonidine HCl 0.1 mg tablet 0.1 mg PO TID PRN 08/17/21 04/05/24 ANXIETY/RESTLESSNESS X LOS/HR>/=70 AND BP>100/70 hydroxyzine HCl 50 mg tablet 50 mg PO TID PRN ANXIETY X LOS 08/17/21 04/05/24 icosapent ethyl 1 gram capsule 2 g PO AMPM 08/17/21 04/05/24 (Vascepa) mirtazapine 30 mg tablet 30 mg PO HS 08/17/21 04/05/24 omega-3 acid ethyl esters 1 gram 2 cap PO AMPM 06/04/22 04/05/24 capsule (Lovaza) desvenlafaxine succinate 100 mg 100 mg PO QAM 05/30/23 04/05/24 tablet,extended release 24 hr clopidogrel 75 mg tablet 75 mg PO QAM 04/05/24 04/05/24 empagliflozin 25 mg tablet 25 mg PO QAM 04/05/24 04/05/24 (Jardiance) fluticasone fur. 100 mcg-umeclid 1 inh inhalation QAM 04/05/24 04/05/24 62.5 mcg-vilant 25 mcg inhalat.powder (Trelegy Ellipta) melatonin 10 mg tablet 10 mg PO HS 04/05/24 04/05/24 ropinirole 0.5 mg tablet 0.5 mg PO QPM 04/05/24 04/05/24 Results & Data (ED) Vital Signs Vital Signs - 24 hr 04/04/24 19:50 04/04/24 20:23 04/04/24 20:23 Temperature 36.6 C Temperature Source Temporal Artery Scan Pulse Rate 84 Pulse Rate [Finger] 73 Pulse Rhythm Regular Pulse Rhythm [Finger] Respiratory Rate 16 20 Respiratory Effort / Characteristics Non-Labored Spontaneous Respiratory Depth Normal Respiratory Pattern Regular Blood Pressure 150/89 H Blood Pressure [Right Arm] Blood Pressure [Right Radial Artery] 124/84 Blood Pressure Mean 109 Blood Pressure Mean [Right Arm] Blood Pressure Mean [Right Radial Artery] 97 Blood Pressure Position Sitting Pulse Oximetry 94 92 92 Oxygen Delivery Method Room Air Room Air Room Air Sepsis Recent Fever Within 48 Hours No Sepsis New/Unexplained Change in Mental Status N/A Sepsis Action Taken by Nursing No Action Required 04/04/24 22:00 04/05/24 00:00 04/05/24 00:36 Temperature Temperature Source Pulse Rate 58 L Pulse Rate [Finger] 82 58 L Pulse Rhythm Pulse Rhythm [Finger] Regular Respiratory Rate 20 20 Respiratory Effort / Characteristics Non-Labored Spontaneous Respiratory Depth Normal Normal Respiratory Pattern Regular Blood Pressure Blood Pressure [Right Arm] 119/71 113/80 Blood Pressure [Right Radial Artery] 119/71 Blood Pressure Mean Blood Pressure Mean [Right Arm] 87 91 Blood Pressure Mean [Right Radial Artery] 87 Blood Pressure Position Pulse Oximetry 92 92 Oxygen Delivery Method Room Air Room Air Sepsis Recent Fever Within 48 Hours Sepsis New/Unexplained Change in Mental Status Sepsis Action Taken by Nursing Laboratory Data Attestation: I reviewed the patient's lab results. 04/05/24 03:49 04/05/24 03:49 Lab Results 04/04/24 04/04/24 04/04/24 Range/Units 20:25 21:28 21:56 WBC 5.45 (4.8-10.8) K/ul RBC 5.11 (4.70-6.10) M/uL Hgb 14.9 (14.0-18.0) g/dl Hct 41.7 L (42.0-52.0) % MCV 81.6 (80.0-100.0) fL MCH 29.2 (25.0-34.0) pg MCHC 35.7 (32.0-36.0) g/dL RDW Std Deviation 41.1 (36.4-46.3) fL RDW Coeff of Antonio 14.0 (11.5-14.5) % Plt Count 109 L (130-400) K/uL MPV 9.7 (9.4-12.4) fL Immature Gran % (Auto) 0.6 % Neut % (Auto) 66.3 % Lymph % (Auto) 19.8 % [place] % (Auto) 8.6 % Eos % (Auto) 4.0 % Baso % (Auto) 0.7 % Neut # (Auto) 3.61 (1.40-6.50) K/uL Lymph # (Auto) 1.08 L (1.20-3.40) K/uL [place] # (Auto) 0.47 (0.11-0.59) K/uL Eos # (Auto) 0.22 (0.00-0.50) K/uL Baso # (Auto) 0.04 (0.00-0.20) K/uL Immature Gran # (Auto) 0.03 (0.01-0.20) K/uL PT Cancelled 11.5 INR Cancelled 1.1 Sodium 133 L (136-145) mmol/L Potassium 3.6 (3.5-5.1) mmol/L Chloride 101 (98-107) mmol/L Carbon Dioxide 24 (21-32) mmol/L Anion Gap 8 (3-11) BUN 14 (6-23) mg/dl Creatinine 1.05 (0.6-1.4) mg/dl Est Cr Clr Drug Dosing 92.6 ml/min Est GFR ( Amer) 85.9 ml/min Est GFR (Non-Af Amer) 74.1 ml/min BUN/Creatinine Ratio 13.3 (10-20) Glucose 185 H (70-99(Fasting)) mg/dl Calcium 9.1 (8.6-10.3) mg/dl Total Bilirubin 0.5 (0.2-1.0) mg/dl Direct Bilirubin 0.1 (0-0.2) mg/dl AST 32 (13-39) U/L ALT 31 (7-52) U/L Alkaline Phosphatase 66 (34-104) U/L Total Protein 7.6 (6.0-8.3) gm/dl Albumin 4.0 (3.4-5.0) gm/dl Globulin 3.6 (2.5-4.0) gm/dl Albumin/Globulin Ratio 1.1 (0.9-2) Lipase 57 (11-82) U/L Ethyl Alcohol mg/dL < 10.0 (<10.0) mg/dl Blood Type O Positive Antibody Screen NEGATIVE 04/05/24 Range/Units 01:26 WBC (4.8-10.8) K/ul RBC (4.70-6.10) M/uL Hgb 14.2 (14.0-18.0) g/dl Hct 40.4 L (42.0-52.0) % MCV (80.0-100.0) fL MCH (25.0-34.0) pg MCHC (32.0-36.0) g/dL RDW Std Deviation (36.4-46.3) fL RDW Coeff of Antonio (11.5-14.5) % Plt Count (130-400) K/uL MPV (9.4-12.4) fL Immature Gran % (Auto) % Neut % (Auto) % Lymph % (Auto) % [place] % (Auto) % Eos % (Auto) % Baso % (Auto) % Neut # (Auto) (1.40-6.50) K/uL Lymph # (Auto) (1.20-3.40) K/uL [place] # (Auto) (0.11-0.59) K/uL Eos # (Auto) (0.00-0.50) K/uL Baso # (Auto) (0.00-0.20) K/uL Immature Gran # (Auto) (0.01-0.20) K/uL PT INR Sodium (136-145) mmol/L Potassium (3.5-5.1) mmol/L Chloride (98-107) mmol/L Carbon Dioxide (21-32) mmol/L Anion Gap (3-11) BUN (6-23) mg/dl Creatinine (0.6-1.4) mg/dl Est Cr Clr Drug Dosing ml/min Est GFR ( Amer) ml/min Est GFR (Non-Af Amer) ml/min BUN/Creatinine Ratio (10-20) Glucose (70-99(Fasting)) mg/dl Calcium (8.6-10.3) mg/dl Total Bilirubin (0.2-1.0) mg/dl Direct Bilirubin (0-0.2) mg/dl AST (13-39) U/L ALT (7-52) U/L Alkaline Phosphatase (34-104) U/L Total Protein (6.0-8.3) gm/dl Albumin (3.4-5.0) gm/dl Globulin (2.5-4.0) gm/dl Albumin/Globulin Ratio (0.9-2) Lipase (11-82) U/L Ethyl Alcohol mg/dL (<10.0) mg/dl Blood Type Antibody Screen Administered Medications Potassium Chloride/Sodium Chloride (Normal Saline W/20 Meq Kcl) 20 meq in 1,000 mls @ 100 mls/hr IV .Q10H LESLEE; Protocol Stop: 04/05/24 11:14 Last Admin: 04/05/24 01:33 Dose: 100 mls/hr Documented By: PATIENCE Discontinued Medications Fentanyl Citrate (Fentanyl Citrate Pf 100 Mcg/2 Ml Vial) 50 mcg IV NOW STA Stop: 04/05/24 01:12 Last Admin: 04/05/24 01:32 Dose: 50 mcg Documented By: PATIENCE Sodium Chloride (Nss) 1,000 mls @ 999 mls/hr IV .Q1H1M ONE Stop: 04/04/24 20:59 Last Infusion: 04/04/24 21:56 Dose: Infused Documented By: Admin: 04/04/24 20:47 Dose: 999 mls/hr Documented By: PATIENCE Acetaminophen (Ofirmev) 1,000 mg in 100 mls @ 400 mls/hr IV NOW STA Stop: 04/04/24 20:57 Last Infusion: 04/04/24 21:56 Dose: Infused Documented By: Admin: 04/04/24 20:47 Dose: 400 mls/hr Documented By: PATIENCE Piperacillin Sod/Tazobactam Sod (Zosyn) 4.5 gm in 100 mls @ 200 mls/hr IV NOW ONE Stop: 04/05/24 00:19 Last Infusion: 04/05/24 00:45 Dose: Infused Documented By: Admin: 04/05/24 00:07 Dose: 200 mls/hr Documented By: PATIENCE Pantoprazole Sodium 40 mg/ (Syringe) 10 mls @ 5 mls/min IV NOW ONE Stop: 04/05/24 01:46 Last Admin: 04/05/24 01:59 Dose: 5 mls/min Documented By: PATIENCE Ioversol (Optiray 320 100ml) 94 ml IV ONCE ONE Stop: 04/04/24 21:45 Last Admin: 04/04/24 21:45 Dose: 94 ml Documented By: EDK Imaging Data Radiologist's Impression: Abdomen/Pelvis CT 04/04/24 20:43 Exam(s): CT ABDOMEN + PELVIS With Contrast IV Amt: 94ML OPTIRAY 320 EXAM: CT Abdomen and Pelvis With Intravenous Contrast CLINICAL HISTORY: Reason for exam: LLQ abd pain, lower GIB. TECHNIQUE: Axial computed tomography images of the abdomen and pelvis with intravenous contrast. CTDI is 27.36 mGy and DLP is 1444.36 mGy-cm. Automated exposure control was utilized for the study. A dose lowering technique was utilized adhering to the principles of ALARA. CONTRAST: Patient received 94ML OPTIRAY 320 of IV contrast COMPARISON: 03/05/18 FINDINGS: Lung bases: Unremarkable. No mass. No consolidation. ABDOMEN: Liver: Slight liver surface nodularity with widening of the fissures suggesting cirrhotic change. Gallbladder and bile ducts: Cholecystectomy. No ductal dilation. Pancreas: Unremarkable. No mass. No ductal dilation. Spleen: Splenomegaly measuring 15 cm. Adrenals: Unremarkable. No mass. Kidneys and ureters: Symmetric renal enhancement. No hydronephrosis. Stomach and bowel: No bowel obstruction. Sigmoid diverticulosis. Wall thickening in the mid sigmoid colon (series 302, image 79), potentially uncomplicated acute diverticulitis. PELVIS: Appendix: Normal appendix. Bladder: Unremarkable. No mass. Reproductive: Brachytherapy seeds or surgical clips in the prostate. ABDOMEN and PELVIS: Intraperitoneal space: Unremarkable. No free air, significant free fluid, or abscess. Retroperitoneal space: Nonspecific stranding within the paracolic gutters and retroperitoneum. Bones/joints: No acute fracture or dislocation. Soft tissues: Unremarkable. Vasculature: Atherosclerosis without aneurysm. Lymph nodes: Unremarkable. No enlarged lymph nodes. IMPRESSION: 1. Wall thickening in the mid sigmoid colon (series 302, image 79), potentially uncomplicated acute diverticulitis. Given the short segment of wall thickening, correlation with colonoscopy is recommended following resolution of acute phase to exclude underlying colonic mass. 2. Slight liver surface nodularity with widening of the fissures suggesting cirrhotic change. 3. Splenomegaly measuring 15 cm. This may reflect portal hypertension. Electronically signed by: Vale Daigle M.D. 04/04/24 23:15 PM Discharge Plan Visit Data Chief Complaint: Rectal Bleed Stated Complaint: ABD, PAIN, RECTAL BLEEDING ED Provider: Mahesh Lyn Discharge Problem: Diverticulitis, Acute lower gastrointestinal bleeding, Left lower quadrant abdominal pain Patient Disposition: Admitted As Inpatient Discharge Instructions Interventions: ED Discharge Assessment Last Done: 04/05/24 03:25
[2024-04-04 20:39] LABS: Basophils # (auto) 0.04 K/uL (0.00-0.20); Basophils % (auto) 0.7 %; Eosinophils # (auto) 0.22 K/uL (0.00-0.50); Hematocrit (blood only) 41.7 % (42.0-52.0); Hemoglobin 14.9 g/dl (14.0-18.0); Immature Granulocytes # (auto) 0.03 K/uL (0.01-0.20); Immature Granulocytes % (auto) 0.6 %; Lymphocytes # (auto) 1.08 K/uL (1.20-3.40); Lymphocytes % (auto) 19.8 %; Mean Corpuscular Hemoglobin 29.2 pg (25.0-34.0); Mean Corpuscular Hgb Conc 35.7 g/dL (32.0-36.0); Mean Corpuscular Volume 81.6 fL (80.0-100.0); Mean Platelet Volume 9.7 fL (9.4-12.4); Monocytes # (auto) 0.47 K/uL (0.11-0.59); Monocytes % (auto) 8.6 %; Neutrophils # (auto) 3.61 K/uL (1.40-6.50); Neutrophils % (auto) 66.3 %; Platelet Count 109 K/uL (130-400); RDW Standard Deviation 41.1 fL (36.4-46.3); Red Blood Count 5.11 M/uL (4.70-6.10); White Blood Count 5.45 K/ul (4.8-10.8)
[2024-04-04] MEDS: SODIUM CHLORIDE 0.9% 1,000 ML IV ONE (20:47)
[2024-04-04] MEDS: ACETAMINOPHEN 1,000 MG/100 ML VIAL IV STA (20:47)
[2024-04-04 21:06] LABS: BUN Creatinine Ratio 13.3 (10-20); Calcium 9.1 mg/dl (8.6-10.3); Creatinine Clr Calc Pharmacy 92.6 ml/min; Est GFR (African American) 85.9 ml/min; Est GFR (Non-African American) 74.1 ml/min; Potassium 3.6 mmol/L (3.5-5.1)
[2024-04-04 21:07] LABS: Albumin Globulin Ratio 1.1 (0.9-2); Bilirubin Direct 0.1 mg/dl (0-0.2); Bilirubin,Total 0.5 mg/dl (0.2-1.0); Globulin 3.6 gm/dl (2.5-4.0); Total Protein 7.6 gm/dl (6.0-8.3)
[2024-04-04] MEDS: OPTIRAY 320 100ml IV ONE (21:45)
[2024-04-04 22:33] LABS: INR 1.1 (0.9-1.1); Prothrombin Time 11.5 Seconds (9.0-12.0)
--- NOTE | 2024-04-04 23:15 | CT Scan Report ---
Exam(s): CT ABDOMEN + PELVIS With Contrast IV Amt: 94ML OPTIRAY 320 EXAM: CT Abdomen and Pelvis With Intravenous Contrast CLINICAL HISTORY: Reason for exam: LLQ abd pain, lower GIB. TECHNIQUE: Axial computed tomography images of the abdomen and pelvis with intravenous contrast. CTDI is 27.36 mGy and DLP is 1444.36 mGy-cm. Automated exposure control was utilized for the study. A dose lowering technique was utilized adhering to the principles of ALARA. CONTRAST: Patient received 94ML OPTIRAY 320 of IV contrast COMPARISON: 03/05/18 FINDINGS: Lung bases: Unremarkable. No mass. No consolidation. ABDOMEN: Liver: Slight liver surface nodularity with widening of the fissures suggesting cirrhotic change. Gallbladder and bile ducts: Cholecystectomy. No ductal dilation. Pancreas: Unremarkable. No mass. No ductal dilation. Spleen: Splenomegaly measuring 15 cm. Adrenals: Unremarkable. No mass. Kidneys and ureters: Symmetric renal enhancement. No hydronephrosis. Stomach and bowel: No bowel obstruction. Sigmoid diverticulosis. Wall thickening in the mid sigmoid colon (series 302, image 79), potentially uncomplicated acute diverticulitis. PELVIS: Appendix: Normal appendix. Bladder: Unremarkable. No mass. Reproductive: Brachytherapy seeds or surgical clips in the prostate. ABDOMEN and PELVIS: Intraperitoneal space: Unremarkable. No free air, significant free fluid, or abscess. Retroperitoneal space: Nonspecific stranding within the paracolic gutters and retroperitoneum. Bones/joints: No acute fracture or dislocation. Soft tissues: Unremarkable. Vasculature: Atherosclerosis without aneurysm. Lymph nodes: Unremarkable. No enlarged lymph nodes. IMPRESSION: 1. Wall thickening in the mid sigmoid colon (series 302, image 79), potentially uncomplicated acute diverticulitis. Given the short segment of wall thickening, correlation with colonoscopy is recommended following resolution of acute phase to exclude underlying colonic mass. 2. Slight liver surface nodularity with widening of the fissures suggesting cirrhotic change. 3. Splenomegaly measuring 15 cm. This may reflect portal hypertension. Electronically signed by: Vale Daigle M.D. 04/04/24 23:15 PM
[2024-04-05] MEDS: PIPERACILLIN/TAZOBACTAM 4.5 GM/100 ML BAG IV ONE (00:07)
[2024-04-05] MEDS ORDERED: ACETAMINOPHEN 1000 MG/100 ML IV IV PRN (01:32)
[2024-04-05] MEDS: fentaNYL citrate PF 100 MCG/2 ML VIAL IV STA (01:32)
[2024-04-05] MEDS: NSS + 20MEQ KCL 20 MEQ/1,000 ML BAG IV SCH (01:33)
[2024-04-05] MEDS ORDERED: ONDANSETRON INJ 2 MG/ML 2 ML VIAL IV PRN (01:37)
[2024-04-05] MEDS ORDERED: ACETAMINOPHEN 1,000 MG/100 ML VIAL IV PRN (01:45)
--- NOTE | 2024-04-05 01:45 | History & Physical Report ---
Date of Service April 05, 2024 Assessment & Plan (1) Acute lower gastrointestinal bleeding: (2) Sigmoid diverticulitis: (3) Hypertension: (4) Seizure disorder: (5) Major depression, recurrent: (6) Diabetes: (7) Splenomegaly: (8) Portal hypertension: (9) Liver cirrhosis: Plan Sigmoid diverticulitis/acute lower GI bleeding/thrombocytopenia- Admit to monitored bed CT scan notes mid segment section of sigmoid colon with diverticulitis, with recommendation for colonoscopy posttreatment due to concerns regarding possible underlying mass Hold clopidogrel Continue Zosyn 4.5 g IV every 8 hours begun in the ED NPO Protonix 40 mg IV daily Zofran 4 mg IV every 6 hours as needed Acetaminophen 1 g IV every 8 hours as needed for mild pain or fever Dilaudid 0.25 mg IV every 3 hours as needed for moderate to severe pain Normal saline + KCl 20 mEq at 100 mL/h x 1 L H&H every 6 hours Patient is agreeable to transfusion if needed, with initial hemoglobin 14.9, with follow-up 14 point 2:02 bloody bowel movements in the ED Platelets 109, with range 99-122 since 03/10 Diabetes mellitus- Hold metformin and Jardiance Placed on Accu-Cheks with NovoLog SSI Check hemoglobin A1c Glucose 185 on admission laboratories Splenomegaly/portal hypertension/liver cirrhosis- Patient with history of alcohol dependence, reports no intake for the past 2 years Alcohol level less than 10 History of Present Illness Chief Complaint: The patient presents to the emergency department complaint of left lower quadrant and suprapubic pain with several bloody bowel movements over the past couple days, similar to discomfort he has had with a previous episode of diverticulitis many years ago. He reports having 2 bloody bowel movements while in the emergency department this evening Primary Care Provider: Elke Villanueva PA-C Patient is a 63-year-old male with past medical history including DAPT colitis, traumatic subdural hematoma, hypertension, hyperlipidemia, anxiety, major depression, alcohol dependence, carotid stenosis, seizure disorder, RLS, diabetes mellitus, alcoholic hepatitis, B12 deficiency and word finding difficulty. The patient presents to the emergency department with left lower quadrant and suprapubic pain with multiple bloody bowel movements over the past few days. He denies any recent travels or sick exposures. Denies any recent change in dietary habits. He denies current use of alcohol. He denies any use of NSAIDs Allergies Allergy/AdvReac Type Severity Reaction Status Date / Time bee venom protein (honey bee) Allergy Severe ANAPHYLAXIS Verified 04/05/24 00:52 cat dander Allergy Intermediate Itchy/Watery Verified 04/05/24 00:52 Eyes, Itchy throat tamsulosin Allergy Intermediate Hives Verified 04/05/24 00:52 Home Medications Medication Instructions Recorded Confirmed Type epinephrine 0.3 mg/0.3 mL 0.3 mg IM DIRECTED PRN Allergic 03/21/19 04/05/24 History injection, auto-injector (EpiPen) Reaction pantoprazole 40 mg tablet,delayed 40 mg PO QAM 03/21/19 04/05/24 History release buspirone 30 mg tablet 30 mg PO BID17 03/08/21 04/05/24 History metformin 1,000 mg tablet 1,000 mg PO BID17 03/08/21 04/05/24 History rosuvastatin 40 mg tablet 40 mg PO QPM 04/18/21 04/05/24 History clonidine HCl 0.1 mg tablet 0.1 mg PO TID PRN 08/17/21 04/05/24 History ANXIETY/RESTLESSNESS X LOS/HR>/=70 AND BP>100/70 hydroxyzine HCl 50 mg tablet 50 mg PO TID PRN ANXIETY X LOS 08/17/21 04/05/24 History icosapent ethyl 1 gram capsule 2 g PO AMPM 08/17/21 04/05/24 History (Vascepa) mirtazapine 30 mg tablet 30 mg PO HS 08/17/21 04/05/24 History omega-3 acid ethyl esters 1 gram 2 cap PO AMPM 06/04/22 04/05/24 History capsule (Lovaza) desvenlafaxine succinate 100 mg 100 mg PO QAM 05/30/23 04/05/24 History tablet,extended release 24 hr clopidogrel 75 mg tablet 75 mg PO QAM 04/05/24 04/05/24 History empagliflozin 25 mg tablet 25 mg PO QAM 04/05/24 04/05/24 History (Jardiance) fluticasone fur. 100 mcg-umeclid 1 inh inhalation QAM 04/05/24 04/05/24 History 62.5 mcg-vilant 25 mcg inhalat.powder (Trelegy Ellipta) melatonin 10 mg tablet 10 mg PO HS 04/05/24 04/05/24 History ropinirole 0.5 mg tablet 0.5 mg PO QPM 04/05/24 04/05/24 History Past Med/Surg History Problem List (Updated 04/05/24 @ 04:14 by Arun Powell MD) Liver cirrhosis Portal hypertension Splenomegaly Sigmoid diverticulitis Acute lower gastrointestinal bleeding (Acute) H/O traumatic subdural hematoma Hypertension (Chronic) Hyperlipidemia (Chronic) Anxiety (Chronic) Diverticulosis (Chronic) Major depression, recurrent EtOH dependence Carotid artery stenosis (Chronic) left 75% requiring endarterectomy, [facility] Alcohol intoxication (Acute) Seizure disorder (Chronic) RLS (restless legs syndrome) (Chronic) Pancytopenia Headache Diabetes High triglycerides Alcohol withdrawal delirium (Acute) Unwitnessed fall (Acute) Laceration of tragus of right ear (Acute) Hypomagnesemia (Acute) Hypokalemia (Acute) Alcoholic hepatitis DVT prophylaxis Vitamin B12 deficiency Acute hepatic encephalopathy (Acute) Alcohol withdrawal Word finding difficulty Medical History (Updated 04/05/24 @ 04:14 by Arun Powell MD) Suicidal behavior Suicidal ideation attempt to buy gun, was not able to buy one. Panic attacks Alcohol abuse Depression TIA (transient ischemic attack) Prostate cancer (07/30/16) Left arm weakness Surgical History History of cholecystectomy History of repair of ACL Family History Father , Mother age 56 of colon cancer Colorectal cancer Mother , the age 78 of a blood clot Dementia Clotting disorder Other Cancer Social History Smoking Status: Current some day smoker Tobacco Type: Cigars Cigarettes Per Day: 1 cigar per day. 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 The review of systems is otherwise negative other than for that already noted above, and at least 10 systems have been reviewed. Physical Exam Physical Exam: The patient is awake, alert and oriented 3, well developed and well nourished, normocephalic and atraumatic, lying in bed and in no acute distress. HEENT--PERRL, EOMI, mucous membranes and oropharynx mildly dry. Neck--supple. No JVD. No bruits. Thyroid normal, trachea midline, no adenopathy. Heart--normal S1 and S2. No murmurs, rubs or gallops. Lungs--clear bilaterally, no respiratory distress, no accessory muscle use. Abdomen--normal bowel sounds and soft. Tender left lower quadrant and suprapubic. Nondistended. Obese Extremities--1+ bilateral pretibial pitting edema Dermatologic--normal skin turgor, normal color, no abnormal lymph nodes, no rash. Neurologic--cranial nerves II through XII grossly intact. Rheumatologic--normal range of motion. Psychiatric--normal affect. Results & Data Results & Data Vital Signs (Past 12 Hours) Vital Signs Temp Pulse Pulse Resp BP BP BP 04/05/24 00:36 58 L 04/05/24 00:00 58 L 20 113/80 04/04/24 22:00 82 20 119/71 119/71 04/04/24 20:23 04/04/24 20:23 73 20 124/84 04/04/24 19:50 36.6 C 84 16 150/89 H Pulse Ox O2 Del Method 04/05/24 00:36 04/05/24 00:00 92 Room Air 04/04/24 22:00 92 Room Air 04/04/24 20:23 92 Room Air 04/04/24 20:23 92 Room Air 04/04/24 19:50 94 Room Air Laboratory Results Laboratory Results WBC 5.45 K/ul (4.8-10.8) 04/04/24 20:25 RBC 5.11 M/uL (4.70-6.10) 04/04/24 20:25 Hgb 14.2 g/dl (14.0-18.0) 04/05/24 01:26 Hct 40.4 % (42.0-52.0) L 04/05/24 01:26 MCV 81.6 fL (80.0-100.0) 04/04/24 20: MCH 29.2 pg (25.0-34.0) 04/04/24 20: MCHC 35.7 g/dL (32.0-36.0) 04/04/24: RDW Std Deviation 41.1 fL (36.4-46.3) 04/04/24: RDW Coeff of Antonio 14.0 % (11.5-14.5) 04/04/24: Plt Count 109 K/uL (130-400) L 04/04/24: MPV 9.7 fL (9.4-12.4) 04/04/24 20: Immature Gran % (Auto) 0.6 % 04/04/24 20: Neut % (Auto) 66.3 % 04/04/24: Lymph % (Auto) 19.8 % 04/04/24: Talbot % (Auto) 8.6 % 04/04/24 20:25 Eos % (Auto) 4.0 % 04/04/24 20: Baso % (Auto) 0.7 % 04/04/24: Neut # (Auto) 3.61 K/uL (1.40-6.50) 04/04/24 20: Lymph # (Auto) 1.08 K/uL (1.20-3.40) L 04/04/24 20:25 Talbot # (Auto) 0.47 K/uL (0.11-0.59) 06/15/24 20:25 Eos # (Auto) 0.22 K/uL (0.00-0.50) 04/04/24 20:25 Baso # (Auto) 0.04 K/uL (0.00-0.20) 04/04/24 20:25 Immature Gran # (Auto) 0.03 K/uL (0.01-0.20) 04/04/24 20:25 PT 11.5 Seconds (9.0-12.0) 04/04/24 21:56 INR 1.1 (0.9-1.1) 04/04/24 21:56 Sodium 133 mmol/L (136-145) L 04/04/24 20:25 Potassium 3.6 mmol/L (3.5-5.1) 04/04/24 20:25 Chloride 101 mmol/L (98-107) 04/04/24 20:25 Carbon Dioxide 24 mmol/L (21-32) 04/04/24 20:25 Anion Gap 8 (3-11) 04/04/24 20:25 BUN 14 mg/dl (6-23) 04/04/24 20:25 Creatinine 1.05 mg/dl (0.6-1.4) 04/04/24 20:25 Est Cr Clr Drug Dosing 92.6 ml/min 04/04/24 20:25 Est GFR ( Amer) 85.9 ml/min 04/04/24 20:25 Est GFR (Non-Af Amer) 74.1 ml/min 04/04/24 20:25 BUN/Creatinine Ratio 13.3 (10-20) 04/04/24 20:25 Glucose 185 mg/dl (70-99(Fasting)) H 04/04/24 20:25 Calcium 9.1 mg/dl (8.6-10.3) 04/04/24 20:25 Total Bilirubin 0.5 mg/dl (0.2-1.0) 04/04/24 20:25 Direct Bilirubin 0.1 mg/dl (0-0.2) 04/04/24 20:25 AST 32 U/L (13-39) 04/04/24 20:25 ALT 31 U/L (7-52) 04/04/24 20:25 Alkaline Phosphatase 66 U/L (34-104) 04/04/24 20:25 Total Protein 7.6 gm/dl (6.0-8.3) 04/04/24 20:25 Albumin 4.0 gm/dl (3.4-5.0) 04/04/24 20:25 Globulin 3.6 gm/dl (2.5-4.0) 04/04/24 20:25 Albumin/Globulin Ratio 1.1 (0.9-2) 04/04/24 20:25 Lipase 57 U/L (11-82) 04/04/24 20:25 Ethyl Alcohol mg/dL < 10.0 mg/dl (<10.0) 04/04/24 20:25 Blood Type O Positive 04/04/24 21:28 Antibody Screen NEGATIVE 04/04/24 21:28 Impressions Abdomen/Pelvis CT 04/04/24 20:43 Exam(s): CT ABDOMEN + PELVIS With Contrast IV Amt: 94ML OPTIRAY 320 EXAM: CT Abdomen and Pelvis With Intravenous Contrast CLINICAL HISTORY: Reason for exam: LLQ abd pain, lower GIB. TECHNIQUE: Axial computed tomography images of the abdomen and pelvis with intravenous contrast. CTDI is 27.36 mGy and DLP is 1444.36 mGy-cm. Automated exposure control was utilized for the study. A dose lowering technique was utilized adhering to the principles of ALARA. CONTRAST: Patient received 94ML OPTIRAY 320 of IV contrast COMPARISON: 03/05/18 FINDINGS: Lung bases: Unremarkable. No mass. No consolidation. ABDOMEN: Liver: Slight liver surface nodularity with widening of the fissures suggesting cirrhotic change. Gallbladder and bile ducts: Cholecystectomy. No ductal dilation. Pancreas: Unremarkable. No mass. No ductal dilation. Spleen: Splenomegaly measuring 15 cm. Adrenals: Unremarkable. No mass. Kidneys and ureters: Symmetric renal enhancement. No hydronephrosis. Stomach and bowel: No bowel obstruction. Sigmoid diverticulosis. Wall thickening in the mid sigmoid colon (series 302, image 79), potentially uncomplicated acute diverticulitis. PELVIS: Appendix: Normal appendix. Bladder: Unremarkable. No mass. Reproductive: Brachytherapy seeds or surgical clips in the prostate. ABDOMEN and PELVIS: Intraperitoneal space: Unremarkable. No free air, significant free fluid, or abscess. Retroperitoneal space: Nonspecific stranding within the paracolic gutters and retroperitoneum. Bones/joints: No acute fracture or dislocation. Soft tissues: Unremarkable. Vasculature: Atherosclerosis without aneurysm. Lymph nodes: Unremarkable. No enlarged lymph nodes. IMPRESSION: 1. Wall thickening in the mid sigmoid colon (series 302, image 79), potentially uncomplicated acute diverticulitis. Given the short segment of wall thickening, correlation with colonoscopy is recommended following resolution of acute phase to exclude underlying colonic mass. 2. Slight liver surface nodularity with widening of the fissures suggesting cirrhotic change. 3. Splenomegaly measuring 15 cm. This may reflect portal hypertension. Electronically signed by: Vale Daigle M.D. 04/04/24 23:15 PM Code Status & VTE Plan Code Status Full code VTE Prophylaxis Plan VTE Prophylaxis will be ordered: Yes PG Care Time/CCT Total # of Minutes Spent Total Time Spent with Patient: Total time spent is greater than 50% in coordination of care (as documented) at patient's floor/unit and/or counseling patient: Coding Level of Care Code 90067 INT INP/OBS CARE 3/75MIN Diagnoses Acute lower gastrointestinal bleeding K92.2 Sigmoid diverticulitis K57.32 Essential hypertension I10 Hypertension type: essential hypertension Seizure disorder G40.909 Major depression, recurrent F33.9 Diabetes E11.9 Splenomegaly R16.1 Portal hypertension K76.6 Liver cirrhosis K74.60 (3) Hypertension Hypertension type: essential hypertension Qualified Code(s): I10 - Essential (primary) hypertension
[2024-04-05] MEDS: PANTOprazole 40 MG in SYRINGE 0 ML IV ONE (01:59)
[2024-04-05 02:13] LABS: Hematocrit (blood only) 40.4 % (42.0-52.0); Hemoglobin 14.2 g/dl (14.0-18.0)
[2024-04-05] MEDS ORDERED: CARBOHYDRATES FOR HYPOGLYCEMIA PO PRN (03:24)
[2024-04-05] MEDS ORDERED: GLUCOSE 40% GEL 15 GM TUBE PO PRN (03:24)
[2024-04-05] MEDS ORDERED: DEXTROSE 50% 50 ML SYRINGE IV PRN (03:24)
[2024-04-05] MEDS ORDERED: GLUCAGON FOR INJ 1 MG VIAL SQ PRN (03:24)
[2024-04-05] MEDS ORDERED: GLUCOSE 10 TAB/TUBE PO PRN (03:24)
[2024-04-05 04:45] LABS: Albumin Globulin Ratio 1.1 (0.9-2); Albumin Level 3.7 gm/dl (3.4-5.0); Bilirubin,Total 0.5 mg/dl (0.2-1.0); Calcium 8.6 mg/dl (8.6-10.3); Creatinine Clr Calc Pharmacy 97.2 ml/min; Est GFR (African American) 91.1 ml/min; Est GFR (Non-African American) 78.6 ml/min; Globulin 3.4 gm/dl (2.5-4.0); Potassium 3.8 mmol/L (3.5-5.1); Total Protein 7.1 gm/dl (6.0-8.3)
[2024-04-05 04:55] LABS: Prothrombin Time 11.3 Seconds (9.0-12.0)
[2024-04-05 05:02] LABS: Basophils # (auto) 0.03 K/uL (0.00-0.20); Basophils % (auto) 0.7 %; Eosinophils # (auto) 0.24 K/uL (0.00-0.50); Eosinophils % (auto) 5.5 %; Hematocrit (blood only) 40.7 % (42.0-52.0); Hemoglobin 14.3 g/dl (14.0-18.0); Immature Granulocytes # (auto) 0.01 K/uL (0.01-0.20); Immature Granulocytes % (auto) 0.2 %; Lymphocytes # (auto) 1.04 K/uL (1.20-3.40); Mean Corpuscular Hemoglobin 29.2 pg (25.0-34.0); Mean Corpuscular Hgb Conc 35.1 g/dL (32.0-36.0); Mean Corpuscular Volume 83.2 fL (80.0-100.0); Monocytes # (auto) 0.42 K/uL (0.11-0.59); Monocytes % (auto) 9.7 %; Neutrophils # (auto) 2.59 K/uL (1.40-6.50); Neutrophils % (auto) 59.9 %; Platelet Count 91 K/uL (130-400); Platelet Estimate Decreased (Normal); RDW Coefficient of Variation 14.3 % (11.5-14.5); RDW Standard Deviation 43.2 fL (36.4-46.3); Red Blood Count 4.89 M/uL (4.70-6.10); White Blood Count 4.33 K/ul (4.8-10.8)
[2024-04-05] MEDS: PIPERACILLIN/TAZOBACTAM 4.5 GM in DEXTROSE 5% MINI-B 100 ML IV SCH (06:39)
[2024-04-05] MEDS: INSULIN ASPART PER UNIT CHARGE SC SCH ×2 (07:39→20:31)
[2024-04-05 07:59] LABS: Estimated Average Glucose 255 mg/dl; Hemoglobin A1C 10.5 % (4.5-5.6)
[2024-04-05] MEDS: HYDROmorphone INJ 0.5 MG/0.5 ML SYR IV PRN (08:42)
[2024-04-05 10:19] LABS: Hemoglobin 15.5 g/dl (14.0-18.0)
[2024-04-05] MEDS: PANTOprazole 40 MG in SYRINGE 0 ML IV SCH (11:01)
--- NOTE | 2024-04-05 14:46 | Hospitalist Progress Note ---
Date of Service April 05, 2024 Assessment & Plan (1) Sigmoid diverticulitis: Plan: Patient presented to ED on 04/05 with chief complaint of LLQ/suprapubic pain and bloody bowel movements. -reviewed CTAP 04/04: acute sigmoid diverticulitis, cannot r/o mass, recommend outpatient colonoscopy post treatment -last colonoscopy about 3 years ago, cannot find records in patients chart -family history of colon cancer in father who in his 50s -reviewed labs 04/05: hgb 15.5, WBC 4.33, plt 91 -advanced diet to clear liquids -continue on Zosyn 4.5g IV q8 hours -Zofran 4mg IV q6 hours as needed for nausea/vomiting -Acetaminophen 1g IV q8h as needed for mild pain/fever -Dilaudid 0.25mg IV q3h as needed for moderate to severe pain -Continue IVF until patient can have adequate oral intake -Given BRBPR, plavix was held. Continue to hold. -Discussed w/ patient and son he will require follow up colonoscopy in 6-8 weeks post treatment (2) Liver cirrhosis: Plan: Patient reports mention of liver disease in past and was on lactulose at one time. -heavy alcohol history: previously drank 1/5 whiskey daily -sober for 2 years and 8 months -MELD: 6 -Thrombocytopenia likely related to liver disease -Discussed with patient and son he should continue outpatient workup regarding cirrhosis Plan Chronic conditions: Diabetes: hold metformin/jardiance. Placed on accu checks with novolog SSI. A1c 10.5 Anxiety/Depression: continue desvenlafaxine, mirtazapine, and Buspar Restless leg syndrome: continue ropinirole hyperlipidemia: continue rosuvastatin insomnia: continue melatonin DVT prophylaxis: encourage ambulation Code status: full Diet: clear liquid disposition: med/tele Admission and Anticipated Discharge Date Admission Date: April 05, 2024 Subjective Patient seen and examined this afternoon with son at bedside today. Patient feels his pain has improved since when he first arrived. He reports feeling hungry and is agreeable to trying a clear liquid diet. He is also eager to go home. He denies any nausea or vomiting. He denies chest pain or shortness of breath. He reports his last bowel movement was without blood. Originally, he was experiencing a large amount of BRBPR and over time it had begun to decrease. He reports he has had episodes of diverticulitis in the past and has been hospitalized for this. His last colonoscopy, he believes was about 3 years ago. He has a family history of colon cancer in his father who in his 50s. Patient reports history of alcohol abuse. He has been sober for 2 years and 8 months now. He reports he previously drank 1/5 whiskey daily. At one point he was on lactulose outpatient but states he has not been on this for quite some time. Physical Exam 2 Constitutional: WD/WN, vitals as above Eyes: PERRL, conjunctivae normal, anicteric sclerae ENMT: external ear and nose normal, oropharynx normal Respiratory: normal respiratory effort, lungs clear to auscultation Cardiovascular: RRR, no murmur, no edema Gastrointestinal (Abdomen): bowel sounds present. tenderness to palpation in LLQ and suprapubic areas Skin: no rashes, warm and dry Neurologic: PERRL, EOMI, accommodation nl, no face palsy, no dysarthria Psychiatric: A+Ox3, euthymic affect Results & Data Results & Data Vital Signs (Past 12 Hours) Vital Signs Pulse Pulse Resp BP BP Pulse Ox Pulse Ox 04/05/24 11:00 124/72 04/05/24 11:00 58 L 18 124/72 91 04/05/24 10:00 59 L 18 133/84 94 04/05/24 09:00 66 15 128/81 92 04/05/24 08:24 62 18 125/74 94 04/05/24 08:03 64 19 125/74 94 04/05/24 07:30 59 L 21 125/77 92 04/05/24 07:10 60 04/05/24 04:54 64 04/05/24 03:36 92 04/05/24 03:36 62 20 130/78 92 O2 Del Method O2 Del Method 04/05/24 11:00 04/05/24 11:00 04/05/24 10:00 04/05/24 09:00 04/05/24 08:24 Room Air 04/05/24 08:03 04/05/24 07:30 04/05/24 07:10 04/05/24 04:54 04/05/24 03:36 Room Air 04/05/24 03:36 Room Air Laboratory Results 04/05/24 09:50 04/05/24 03:49 Diagnostic Findings Abdomen/Pelvis CT 04/04/24 20:43 IMPRESSION: 1. Wall thickening in the mid sigmoid colon (series 302, image 79), potentially uncomplicated acute diverticulitis. Given the short segment of wall thickening, correlation with colonoscopy is recommended following resolution of acute phase to exclude underlying colonic mass. 2. Slight liver surface nodularity with widening of the fissures suggesting cirrhotic change. 3. Splenomegaly measuring 15 cm. This may reflect portal hypertension. Electronically signed by: Vale Daigle M.D. 04/04/24 23:15 PM PG Care Time/CCT Total # of Minutes Spent Total Time Spent with Patient: Total time spent is greater than 50% in coordination of care (as documented) at patient's floor/unit and/or counseling patient: Coding Level of Care Code 94070 SUB INP/OBS CARE 3/50MIN Diagnoses Sigmoid diverticulitis K57.32 Alcoholic cirrhosis of liver without ascites K70.30 Hepatic cirrhosis type: alcoholic cirrhosis Ascites presence: without ascites (2) Liver cirrhosis Hepatic cirrhosis type: alcoholic cirrhosis Ascites presence: without ascites Qualified Code(s): K70.30 - Alcoholic cirrhosis of liver without ascites
[2024-04-05] MEDS: HYDROmorphone INJ 0.5 MG/0.5 ML SYR IV STA (17:22)
[2024-04-05] MEDS: ACETAMINOPHEN 325 MG TAB PO SCH (17:22)
[2024-04-05] MEDS: ROSUVASTATIN CALCIUM 20 MG TAB PO SCH (20:30)
[2024-04-05] MEDS: MIRTAZAPINE TAB 15 MG TAB PO SCH (22:59)
[2024-04-05] MEDS: MELATONIN 3 MG TAB PO SCH (22:59)
[2024-04-05] MEDS: rOPINIRole HCL 0.25 MG TABLET PO SCH (23:00)
[2024-04-06 06:06] LABS: Albumin Level 3.8 gm/dl (3.4-5.0); Bilirubin,Total 0.7 mg/dl (0.2-1.0); Calcium 8.7 mg/dl (8.6-10.3); Magnesium 1.9 mg/dl (1.7-2.4); Potassium 3.6 mmol/L (3.5-5.1)
[2024-04-06 06:12] LABS: Albumin Globulin Ratio 1.1 (0.9-2); BUN Creatinine Ratio 12.5 (10-20); Creatinine Clr Calc Pharmacy 121.5 ml/min; Est GFR (African American) 108.7 ml/min; Est GFR (Non-African American) 93.7 ml/min; Globulin 3.5 gm/dl (2.5-4.0); Total Protein 7.3 gm/dl (6.0-8.3)
[2024-04-06 06:36] LABS: Basophils # (auto) 0.04 K/uL (0.00-0.20); Basophils % (auto) 0.9 %; Eosinophils # (auto) 0.22 K/uL (0.00-0.50); Eosinophils % (auto) 4.8 %; Hematocrit (blood only) 40.3 % (42.0-52.0); Hemoglobin 14.1 g/dl (14.0-18.0); Immature Granulocytes # (auto) 0.04 K/uL (0.01-0.20); Immature Granulocytes % (auto) 0.9 %; Lymphocytes # (auto) 0.73 K/uL (1.20-3.40); Lymphocytes % (auto) 15.8 %; Mean Corpuscular Hemoglobin 28.7 pg (25.0-34.0); Mean Corpuscular Volume 81.9 fL (80.0-100.0); Mean Platelet Volume 10.3 fL (9.4-12.4); Monocytes # (auto) 0.43 K/uL (0.11-0.59); Monocytes % (auto) 9.3 %; Neutrophils # (auto) 3.15 K/uL (1.40-6.50); Neutrophils % (auto) 68.3 %; Platelet Count 85 K/uL (130-400); RDW Coefficient of Variation 14.3 % (11.5-14.5); RDW Standard Deviation 42.7 fL (36.4-46.3); Red Blood Count 4.92 M/uL (4.70-6.10); White Blood Count 4.61 K/ul (4.8-10.8)
[2024-04-06] MEDS: HYDROmorphone INJ 0.5 MG/0.5 ML SYR IV ONE (08:36)
[2024-04-06 08:38] LABS: Partial Thromboplastin Ratio 1.1; Partial Thromboplastin Time 30 Seconds (21-31); Prothrombin Time 11.1 Seconds (9.0-12.0)
[2024-04-06] MEDS: busPIRone 7.5 MG TAB PO SCH (09:33)
[2024-04-06 09:41] LABS: Appearance Urine Clear (Clear); Bilirubin Urine Negative (Negative); Blood Urine Negative (Negative); Color Urine Yellow; Glucose Urine UA 3+ (Negative); Ketones Urine 1+ (Negative); Leukocyte Esterase Urine Negative (Negative); Nitrite Urine Negative (Negative); Protein Urine Negative (Negative); Specific Gravity Urine 1.022 (1.000-1.030); Urobilinogen Urine Negative (Negative); pH Urine 5.5 (4.5-7.5)
[2024-04-06] MEDS: hydrOXYzine HCl 25 MG TAB PO PRN (09:44)
--- NOTE | 2024-04-06 10:04 | Hospitalist Progress Note ---
Date of Service April 06, 2024 Assessment & Plan (1) Sigmoid diverticulitis: Plan: Patient presented to ED on 04/05 with chief complaint of LLQ/suprapubic pain and bloody bowel movements. -reviewed CTAP 04/04: acute sigmoid diverticulitis, cannot r/o mass, recommend outpatient colonoscopy post treatment -last colonoscopy about 3 years ago, cannot find records in patients chart. Will need follow up colonoscopy in 6-8 weeks. Is not established with GI practice at this time. -family history of colon cancer in father who in his 50s -continue on Zosyn 4.5g IV q8 hours - Pain control: dilaudid and tylenol Patient had increasing pain this morning with activity, worse with eating. NPO resumed and IVFs restarted. - Patient reports pain improving and asking for clear liquids for dinner, will continue IVFs overnight -Given BRBPR, plavix was held. Continue to hold. (2) Liver cirrhosis: Plan: Patient reports mention of liver disease in past and was on lactulose at one time. -heavy alcohol history: previously drank 1/5 whiskey daily, now sober for 2 years and 8 months -MELD: 6 -Thrombocytopenia likely related to liver disease (3) Anxiety: Plan: Anxiety/Depression: continue desvenlafaxine (awaiting to bring in as non- formulary), mirtazapine, and Buspar Reports worsneing anxiety while in the hospital and with family hx of colon cancer - behavioral health liason consulted Plan Chronic conditions: Diabetes: hold metformin/jardiance. Placed on accu checks with novolog SSI. A1c 10.5 - defer increase in diabetic regiment to outpatient provider Restless leg syndrome: continue ropinirole hyperlipidemia: continue rosuvastatin insomnia: continue melatonin DVT prophylaxis: encourage ambulation disposition: continued inpatient stay for pain control and diet advancement Admission and Anticipated Discharge Date Admission Date: April 05, 2024 Supervising Physician Co-Signing Physician Notes PA Supervision Note: I did not personally see or examine the patient today, but I verified all hoyt points of MARGRET Matute's assessment and plan with the following exceptions/additions: None Subjective patient seen resting in bed. Feels like he has taken a step backwards. Pain got worse with ambulation and then even worse with eating. nausea but no vomting. reports worsening anxiety and depression, has missed his medication because we do not carry it here, waiting for his to bring in no BM today tele - SR 60 Review of Systems Review of Systems: All systems reviewed & are unremarkable except as noted in Subjective Physical Exam Physical Exam: General: appears to be in pain, VS as above Resp: normal respiratory effort, lungs clear to auscultation CV: RRR, no murmur, Abd: normal bowel sounds, diffuse tenderness, but soft. Extremities: Moves all extremities, no edema Neuro: A&O x3, Skin: intact, no lesions noted Results & Data Results & Data Vital Signs (Past 12 Hours) Vital Signs Temp Pulse Pulse Resp BP Pulse Ox O2 Del Method 04/06/24 08:45 36.6 C 67 20 143/89 H 92 Room Air 04/06/24 08:00 66 04/06/24 03:49 36.5 C 69 18 146/84 H 91 Room Air 04/05/24 23:05 36.5 C 93 H 18 156/96 H 91 Room Air 04/05/24 23:00 61 Laboratory Results CBC, chemistry, and UA reviewed PG Care Time/CCT Total # of Minutes Spent Total Time Spent with Patient: Total time spent is greater than 50% in coordination of care (as documented) at patient's floor/unit and/or counseling patient: Coding Level of Care Code 30037 SUB INP/OBS CARE 50MIN Diagnoses Sigmoid diverticulitis K57.32 Alcoholic cirrhosis of liver without ascites K70.30 Ascites presence: without ascites Hepatic cirrhosis type: alcoholic cirrhosis Anxiety F41.9 (2) Liver cirrhosis Ascites presence: without ascites Hepatic cirrhosis type: alcoholic cirrhosis Qualified Code(s): K70.30 - Alcoholic cirrhosis of liver without ascites
[2024-04-06] MEDS: LACTATED RINGER'S 1,000 ML IV SCH (10:18)
[2024-04-06] MEDS: DESVENLAFAXINE SUCCINATE ER TABLET PO SCH (11:24)
[2024-04-06] MEDS: HYDROmorphone INJ 0.5 MG/0.5 ML SYR IV PRN (12:29)
[2024-04-07 06:36] LABS: Basophils # (auto) 0.02 K/uL (0.00-0.20); Basophils % (auto) 0.4 %; Eosinophils # (auto) 0.27 K/uL (0.00-0.50); Eosinophils % (auto) 5.6 %; Hematocrit (blood only) 44.7 % (42.0-52.0); Hemoglobin 15.5 g/dl (14.0-18.0); Immature Granulocytes # (auto) 0.02 K/uL (0.01-0.20); Immature Granulocytes % (auto) 0.4 %; Lymphocytes # (auto) 0.72 K/uL (1.20-3.40); Lymphocytes % (auto) 14.9 %; Mean Corpuscular Hemoglobin 28.5 pg (25.0-34.0); Mean Corpuscular Hgb Conc 34.7 g/dL (32.0-36.0); Mean Corpuscular Volume 82.3 fL (80.0-100.0); Monocytes # (auto) 0.36 K/uL (0.11-0.59); Monocytes % (auto) 7.4 %; Neutrophils # (auto) 3.45 K/uL (1.40-6.50); Neutrophils % (auto) 71.3 %; Platelet Count 90 K/uL (130-400); RDW Coefficient of Variation 14.3 % (11.5-14.5); RDW Standard Deviation 42.5 fL (36.4-46.3); Red Blood Count 5.43 M/uL (4.70-6.10); White Blood Count 4.84 K/ul (4.8-10.8)
[2024-04-07 06:50] LABS: Albumin Level 3.8 gm/dl (3.4-5.0); BUN Creatinine Ratio 8.8 (10-20); Bilirubin,Total 0.7 mg/dl (0.2-1.0); Creatinine Clr Calc Pharmacy 120.6 ml/min; Est GFR (African American) 108.7 ml/min; Est GFR (Non-African American) 93.7 ml/min; Globulin 3.8 gm/dl (2.5-4.0); Potassium 3.7 mmol/L (3.5-5.1); Total Protein 7.6 gm/dl (6.0-8.3)
[2024-04-07] MEDS: HYDROmorphone INJ 0.5 MG/0.5 ML SYR IV PRN (13:15)
--- NOTE | 2024-04-07 15:17 | Hospitalist Progress Note ---
Date of Service April 07, 2024 Assessment & Plan (1) Sigmoid diverticulitis: Plan: Patient presented to ED on 04/05 with chief complaint of LLQ/suprapubic pain and bloody bowel movements. -reviewed CTAP 04/04: acute sigmoid diverticulitis, cannot r/o mass, recommend outpatient colonoscopy post treatment -last colonoscopy about 3 years ago, cannot find records in patients chart. Will need follow up colonoscopy in 6-8 weeks. Is not established with GI practice at this time. -family history of colon cancer in father who in his 50s -continue on Zosyn 4.5g IV q8 hours - Pain control: dilaudid and scheduled tylenol - pain improving but still using dilaudid - discussed with pt and nursing to try to decrease amount and frequency as pain allows Continue clear liquid diet at this time, hopeful for diet advacement in AM -Given BRBPR, plavix was held. Continue to hold. (2) Liver cirrhosis: Plan: Patient reports mention of liver disease in past and was on lactulose at one time. -heavy alcohol history: previously drank 1/5 whiskey daily, now sober for 2 years and 8 months -MELD: 6 -Thrombocytopenia likely related to liver disease (3) Anxiety: Plan: Anxiety/Depression: continue desvenlafaxine, mirtazapine, and Buspar Reports worsening anxiety while in the hospital and with family hx of colon cancer - behavioral health liason consulted - improving with desvenlafaxine back on board Plan Chronic conditions: Diabetes: hold metformin/jardiance. Placed on accu checks with novolog SSI. A1c 10.5 - defer increase in diabetic regiment to outpatient provider Restless leg syndrome: continue ropinirole hyperlipidemia: continue rosuvastatin insomnia: continue melatonin DVT prophylaxis: encourage ambulation disposition: continued inpatient stay for pain control and diet advancement Admission and Anticipated Discharge Date Admission Date: April 05, 2024 Supervising Physician Co-Signing Physician Notes PA Supervision Note: I did not personally see or examine the patient today, but I verified all hoyt points of MARGRET Matute's assessment and plan with the following exceptions/additions: None Subjective Patient seen during lunch, states that pain is better today has been able to move around more. worse it has gotten was a 4/10 - but still receiving higher doses of Dilaudid Had bowel movement today, no blood Anxiety/depression more controlled today - pleased with behavioral health liaison visit Review of Systems Review of Systems: All systems reviewed & are unremarkable except as noted in Subjective Physical Exam Physical Exam: General: appears much more comfortable today, VS as above Resp: normal respiratory effort, lungs clear to auscultation CV: RRR, no murmur, Abd: normal bowel sounds, improved tenderness now just MILD LLQ, but soft. Extremities: Moves all extremities, no edema Neuro: A&O x3, Skin: intact, no lesions noted Results & Data Results & Data Vital Signs (Past 12 Hours) Vital Signs Temp Pulse Pulse Resp BP Pulse Ox O2 Del Method 04/07/24 11:09 36.7 C 53 L 18 134/78 92 Room Air 04/07/24 10:27 Room Air 04/07/24 08:17 65 04/07/24 08:07 65 04/07/24 07:26 36.6 C 64 18 159/82 H 91 Room Air Laboratory Results CBC and chemistry reviewed PG Care Time/CCT Total # of Minutes Spent Total Time Spent with Patient: Total time spent is greater than 50% in coordination of care (as documented) at patient's floor/unit and/or counseling patient: Coding Level of Care Code 18611 SUB INP/OBS CARE 350MIN Diagnoses Sigmoid diverticulitis K57.32 Alcoholic cirrhosis of liver without ascites K70.30 Ascites presence: without ascites Hepatic cirrhosis type: alcoholic cirrhosis Anxiety F41.9 (2) Liver cirrhosis Ascites presence: without ascites Hepatic cirrhosis type: alcoholic cirrhosis Qualified Code(s): K70.30 - Alcoholic cirrhosis of liver without ascites
[2024-04-08] MEDS: FLUTICASONE/UMECLIDIN/VILANTER 100-62.5-25 INH SCH (08:28)
[2024-04-08] MEDS: oxyCODONE HCL IR 5 MG TAB (IMMEDIATE RELEASE) PO PRN (08:38)
--- NOTE | 2024-04-08 09:53 | Hospitalist Progress Note ---
Date of Service April 08, 2024 Assessment & Plan (1) Sigmoid diverticulitis: Plan: Patient presented to ED on 04/05 with chief complaint of LLQ/suprapubic pain and bloody bowel movements. -reviewed CTAP 04/04: acute sigmoid diverticulitis, cannot r/o mass, recommend outpatient colonoscopy post treatment -last colonoscopy about 3 years ago, cannot find records in patients chart. Will need follow up colonoscopy in 6-8 weeks. Is not established with GI practice at this time. -family history of colon cancer in father who in his 50s -continue on Zosyn 4.5g IV q8 hours - Pain control: scheduled tylenol and prn Oxycodone - Diet advanced to full liquids for lunch -Given BRBPR, plavix was held. Continue to hold. - no bloody BM in 2 days (2) Liver cirrhosis: Plan: Patient reports mention of liver disease in past and was on lactulose at one time. -heavy alcohol history: previously drank 1/5 whiskey daily, now sober for 2 years and 8 months -MELD: 6 -Thrombocytopenia likely related to liver disease (3) Anxiety: Plan: Anxiety/Depression: continue desvenlafaxine, mirtazapine, and Buspar Reports worsening anxiety while in the hospital and with family hx of colon cancer - behavioral health liason consulted - improving with desvenlafaxine back on board Plan Chronic conditions: Diabetes: hold metformin/jardiance. Placed on accu checks with novolog SSI. A1c 10.5 - defer increase in diabetic regiment to outpatient provider Restless leg syndrome: continue ropinirole hyperlipidemia: continue rosuvastatin insomnia: continue melatonin DVT prophylaxis: encourage ambulation disposition: continued inpatient stay for pain control and diet advancement, downgrade to medical Admission and Anticipated Discharge Date Admission Date: April 05, 2024 Supervising Physician Co-Signing Physician Notes PA Supervision Note: I did not personally see or examine the patient today, but I verified all hoyt points of MARGRET Matute's assessment and plan with the following exceptions/additions: check labs for tomorrow given elevated LFTs, t hrombocytopenia, follow WBC count Subjective Patient seen ambulating in the room, was able to get washed up and is feeling better No pain meds overnight and was sore afterwards no BM today pain is not worse with eating Tele - SR 60s Review of Systems Review of Systems: All systems reviewed & are unremarkable except as noted in Subjective Physical Exam Physical Exam: General: appears much more comfortable today, VS as above Resp: normal respiratory effort, lungs clear to auscultation CV: RRR, no murmur, Abd: normal bowel sounds, nontender but soft. Extremities: Moves all extremities, no edema Neuro: A&O x3, Skin: intact, no lesions noted Results & Data Results & Data Vital Signs (Past 12 Hours) Vital Signs Temp Pulse Pulse Resp BP Pulse Ox O2 Del Method 04/08/24 07:22 36.5 C 58 L 18 157/90 H 92 Room Air 04/08/24 07:00 75 04/08/24 02:56 36.9 C 61 18 153/91 H 92 Room Air 04/07/24 23:00 56 L 04/07/24 22:25 36.8 C 63 18 156/93 H 95 Room Air PG Care Time/CCT Total # of Minutes Spent Total Time Spent with Patient: Total time spent is greater than 50% in coordination of care (as documented) at patient's floor/unit and/or counseling patient: Coding Level of Care Code 39659 SUB INP/OBS CARE MIN Diagnoses Sigmoid diverticulitis K57.32 Alcoholic cirrhosis of liver without ascites K70.30 Ascites presence: without ascites Hepatic cirrhosis type: alcoholic cirrhosis Anxiety F41.9 (2) Liver cirrhosis Ascites presence: without ascites Hepatic cirrhosis type: alcoholic cirrhosis Qualified Code(s): K70.30 - Alcoholic cirrhosis of liver without ascites
[2024-04-08 11:16] VITALS: TEMP 97.9
[2024-04-08] MEDS: metroNIDAZOLE 500 MG/100 ML BAG IV SCH (21:19)
[2024-04-08] MEDS: CIPROFLOXACIN / D5W 400 MG/200 ML BAG IV SCH (22:19)
[2024-04-09 07:21] VITALS: BP 148/77; PULSE 65; RESP 18; O2SAT 91
[2024-04-09] MEDS: PANTOprazole 40 MG TAB PO SCH (08:12)
[2024-04-09 08:20] LABS: Basophils # (auto) 0.04 K/uL (0.00-0.20); Basophils % (auto) 0.8 %; Eosinophils # (auto) 0.29 K/uL (0.00-0.50); Hemoglobin 15.4 g/dl (14.0-18.0); Immature Granulocytes # (auto) 0.03 K/uL (0.01-0.20); Immature Granulocytes % (auto) 0.6 %; Lymphocytes % (auto) 16.7 %; Mean Corpuscular Hemoglobin 28.4 pg (25.0-34.0); Mean Corpuscular Hgb Conc 34.2 g/dL (32.0-36.0); Mean Platelet Volume 9.6 fL (9.4-12.4); Monocytes # (auto) 0.41 K/uL (0.11-0.59); Monocytes % (auto) 8.5 %; Neutrophils # (auto) 3.23 K/uL (1.40-6.50); Neutrophils % (auto) 67.4 %; Platelet Count 96 K/uL (130-400); RDW Coefficient of Variation 14.4 % (11.5-14.5); RDW Standard Deviation 43.1 fL (36.4-46.3); Red Blood Count 5.42 M/uL (4.70-6.10)
[2024-04-09] MEDS ORDERED: DICYCLOMINE HCL 10 MG CAP PO PRN (08:21)
[2024-04-09 08:33] LABS: Albumin Globulin Ratio 1.1 (0.9-2); Albumin Level 3.9 gm/dl (3.4-5.0); BUN Creatinine Ratio 7.6 (10-20); Bilirubin,Total 0.6 mg/dl (0.2-1.0); Calcium 9.2 mg/dl (8.6-10.3); Est GFR (African American) 109.2 ml/min; Est GFR (Non-African American) 94.2 ml/min; Globulin 3.5 gm/dl (2.5-4.0); Magnesium 1.8 mg/dl (1.7-2.4); Phosphorus 2.7 mg/dl (2.5-4.9); Potassium 3.8 mmol/L (3.5-5.1); Total Protein 7.4 gm/dl (6.0-8.3)
--- NOTE | 2024-04-09 12:07 | Discharge Summary ---
Discharge Summary Date of Service April 09, 2024 Principal Dx & Hospital Course #1 = Principal Diagnosis (1) Sigmoid diverticulitis: Patient presented to ED on 04/05 with chief complaint of LLQ/suprapubic pain and bloody bowel movements. -reviewed CTAP 04/04: acute sigmoid diverticulitis, cannot r/o mass, recommend outpatient colonoscopy post treatment -last colonoscopy about 3 years ago. Will need follow up colonoscopy in 6-8 weeks. Is not established with GI practice but has seen Dr. Barakat ([facility]) in the past for colonoscopy -family history of colon cancer in father who in his 50s - Received Zosyn, switched to Ciprofloxacin and Flagyl for discharge - Pain control: scheduled tylenol and prn Bentyl for discharge - Continue low fiber diet while bowels return to normal and pain continues to improve. -BRBPR has resolved, can resume plavix at discharge (2) Liver cirrhosis: Patient reports mention of liver disease in past and was on lactulose at one time. -heavy alcohol history: previously drank 1/5 whiskey daily, now sober for 2 years and 8 months -MELD: 6 -Thrombocytopenia likely related to liver disease (3) Anxiety: Anxiety/Depression: continue desvenlafaxine, mirtazapine, and Buspar Reports worsening anxiety while in the hospital and with family hx of colon cancer - behavioral health liason consulted - improving with desvenlafaxine back on board No changes to home regimen Plan Chronic conditions: Diabetes: hold metformin/jardiance. Placed on accu checks with novolog SSI. A1c 10.5 - defer increase in diabetic regiment to outpatient provider Restless leg syndrome: continue ropinirole hyperlipidemia: continue rosuvastatin insomnia: continue melatonin Dispo: discharge to home today Notes For Next Care Provider Patient admitted with BRBPR, found to have diverticulitis. Improving and discharged with Cipro and Flagyl. Will need follow up colonoscopy in 6-8 weeks. A1c >10 - met with environmental educator, good glucose control while in the hospital. Defer changes in regiement to PCP. Medication Changes From Visit Added Cipro 500 Mg p.o. twice daily x 7 more days Added metronidazole 500 mg p.o. twice daily x 7 more days Admission HPI Per Admitting Provider Patient is a 63-year-old male with past medical history including DAPT colitis, traumatic subdural hematoma, hypertension, hyperlipidemia, anxiety, major depression, alcohol dependence, carotid stenosis, seizure disorder, RLS, diabetes mellitus, alcoholic hepatitis, B12 deficiency and word finding difficulty. The patient presents to the emergency department with left lower quadrant and suprapubic pain with multiple bloody bowel movements over the past few days. He denies any recent travels or sick exposures. Denies any recent change in dietary habits. He denies current use of alcohol. He denies any use of NSAIDs Discharge Exam General: appears well, VS as above Resp: normal respiratory effort, lungs clear to auscultation CV: RRR, no murmur, Abd: normal bowel sounds, mild tenderness with deep palpation, soft. Extremities: Moves all extremities, no edema Neuro: A&O x3, Skin: intact, no lesions noted Updated Medication List Medication Instructions Recorded Confirmed Type epinephrine 0.3 mg/0.3 mL 0.3 mg IM DIRECTED PRN Allergic 03/21/19 04/05/24 History injection, auto-injector (EpiPen) Reaction pantoprazole 40 mg tablet,delayed 40 mg PO QAM 03/21/19 04/05/24 History release buspirone 30 mg tablet 30 mg PO BID17 03/08/21 04/05/24 History metformin 1,000 mg tablet 1,000 mg PO BID17 03/08/21 04/05/24 History rosuvastatin 40 mg tablet 40 mg PO QPM 04/18/21 04/05/24 History clonidine HCl 0.1 mg tablet 0.1 mg PO TID PRN 08/17/21 04/05/24 History ANXIETY/RESTLESSNESS X LOS/HR>/=70 AND BP>100/70 hydroxyzine HCl 50 mg tablet 50 mg PO TID PRN ANXIETY X LOS 08/17/21 04/05/24 History icosapent ethyl 1 gram capsule 2 g PO AMPM 08/17/21 04/05/24 History (Vascepa) mirtazapine 30 mg tablet 30 mg PO HS 08/17/21 04/05/24 History omega-3 acid ethyl esters 1 gram 2 cap PO AMPM 06/04/22 04/05/24 History capsule (Lovaza) desvenlafaxine succinate 100 mg 100 mg PO QAM 05/30/23 04/05/24 History tablet,extended release 24 hr clopidogrel 75 mg tablet 75 mg PO QAM 04/05/24 04/05/24 History empagliflozin 25 mg tablet 25 mg PO QAM 04/05/24 04/05/24 History (Jardiance) fluticasone fur. 100 mcg-umeclid 1 inh inhalation QAM 04/05/24 04/05/24 History 62.5 mcg-vilant 25 mcg inhalat.powder (Trelegy Ellipta) melatonin 10 mg tablet 10 mg PO HS 04/05/24 04/05/24 History ropinirole 0.5 mg tablet 0.5 mg PO QPM 04/05/24 04/05/24 History ciprofloxacin HCl 500 mg tablet 500 mg PO Q12H #14 tabs 04/09/24 Rx (Cipro) dicyclomine 10 mg capsule 10 mg PO Q6H PRN abdominal pain 04/09/24 Rx #10 caps metronidazole 500 mg tablet 500 mg PO Q12H 7 days #14 tabs 04/09/24 Rx Hospital Stay Data Consultations 04/04/24 23:52 ED Decision to Admit Stat 04/06/24 10:33 Consult Behavioral Health Liaison Routine Diagnostic Imagining Performed Abdomen/Pelvis CT 04/04/24 20:43 Exam(s): CT ABDOMEN + PELVIS With Contrast IV Amt: 94ML OPTIRAY 320 EXAM: CT Abdomen and Pelvis With Intravenous Contrast CLINICAL HISTORY: Reason for exam: LLQ abd pain, lower GIB. TECHNIQUE: Axial computed tomography images of the abdomen and pelvis with intravenous contrast. CTDI is 27.36 mGy and DLP is 1444.36 mGy-cm. Automated exposure control was utilized for the study. A dose lowering technique was utilized adhering to the principles of ALARA. CONTRAST: Patient received 94ML OPTIRAY 320 of IV contrast COMPARISON: 03/05/18 FINDINGS: Lung bases: Unremarkable. No mass. No consolidation. ABDOMEN: Liver: Slight liver surface nodularity with widening of the fissures suggesting cirrhotic change. Gallbladder and bile ducts: Cholecystectomy. No ductal dilation. Pancreas: Unremarkable. No mass. No ductal dilation. Spleen: Splenomegaly measuring 15 cm. Adrenals: Unremarkable. No mass. Kidneys and ureters: Symmetric renal enhancement. No hydronephrosis. Stomach and bowel: No bowel obstruction. Sigmoid diverticulosis. Wall thickening in the mid sigmoid colon (series 302, image 79), potentially uncomplicated acute diverticulitis. PELVIS: Appendix: Normal appendix. Bladder: Unremarkable. No mass. Reproductive: Brachytherapy seeds or surgical clips in the prostate. ABDOMEN and PELVIS: Intraperitoneal space: Unremarkable. No free air, significant free fluid, or abscess. Retroperitoneal space: Nonspecific stranding within the paracolic gutters and retroperitoneum. Bones/joints: No acute fracture or dislocation. Soft tissues: Unremarkable. Vasculature: Atherosclerosis without aneurysm. Lymph nodes: Unremarkable. No enlarged lymph nodes. IMPRESSION: 1. Wall thickening in the mid sigmoid colon (series 302, image 79), potentially uncomplicated acute diverticulitis. Given the short segment of wall thickening, correlation with colonoscopy is recommended following resolution of acute phase to exclude underlying colonic mass. 2. Slight liver surface nodularity with widening of the fissures suggesting cirrhotic change. 3. Splenomegaly measuring 15 cm. This may reflect portal hypertension. Electronically signed by: Vale Daigle M.D. 04/04/24 23:15 PM Pending Results Patient Have Any Pending Studies at Discharge: No Discharge Instructions Given to Patient (Per Discharging Provider) Mr. Cotton, Eric were hospitalized after episodes of rectal bleeding, you underwent a CT scan that showed acute diverticulitis. You have been treated with IV antibiotics and pain control. You have progressed well and you should continue to improve over the next few days. For pain control at home you can use Tylenol, and I have sent in some Bentyl to try as well abdominal cramping/spasms. You will continue on a course of 2 antibiotics for the next 7 days. During the recovery state you should follow a low fiber diet, I have attached a handout that explains what this entails. When your pain is completely resolved and your bowels returned back to normal you should follow a high-fiber diet to prevent recurrent episodes of diverticulitis. You will need a colonoscopy in 6 to 8 weeks, I have put in the referral to Dr. Barakat. However if he is unable to accommodate you please have your primary care or place a referral to GI for this. You were also found to have a hemoglobin A1c greater than 10. You did talk to the environmental educator about a different diet changes that you can make. You should have close follow-up with your primary care doctor to see if diet changes will be enough or another medication will need to be added. Medications: Your medication list has been reviewed and reconciled upon discharge to ensure accuracy and continuity of care. An updated list of all your medications is included with your hospital discharge paperwork. Please review this list closely, and make note of any changes. Take your medications as instructed; do not skip a dose of your medicines. Make sure all of your doctors know every medicine you are taking (including [id number] medicines, vitamins, and supplements). Call your primary care provider before taking any new medicines (including over- the-counter medicines, vitamins, and supplements), because some of these may interact with your current medications, or may make your symptoms worse. Tell your primary care provider if you cannot afford your medications. Activity: You can do normal everyday activities as your body allows. Take rest breaks if you feel tired. Do not overexert. Stop activity if you have pain, shortness of breath or feel dizzy. Follow-up appointments: Make an appointment with your primary care physician within one week of discharge. A copy of this summary will be sent to them. Every time you see your primary care physician, or any other doctor, bring your medication list, and a list of questions. CONTACT YOUR PRIMARY CARE PROVIDER if you experience any of the following: Shortness of breath or difficulty breathing Fevers or chills Feeling tired with normal activity or experiencing dizziness or fainting Difficulty following your treatment plan, or difficulty taking medications CALL 911 OR GO TO THE EMERGENCY DEPARTMENT if you experience any of the following: Severe abdominal pain or nausea/vomiting Severe chest pain, or chest pain that radiates (moves) to your jaw or arm Sudden, severe shortness of breath or difficulty breathing Thank you for allowing us to participate in your care. Total Time Total Time Spent Total Time Spent (In Minutes): Time spend day of discharge 33 minutes including direct patient care, medication reconciliation, documentation, review of labs and images, and coordination of care. Supervising Physician Co-Signing Physician Notes MARGRET Supervision Note: I personally saw and examined the patient. I verified all ohyt points and agree with MARGRET Matute with the following exceptions and/or additions: S-patient is feeling much improved with only mild left lower quadrant pain at this point. He is moving his bowels no further GI bleeding. He denies nausea and is tolerating a low fiber diet. Denies chest pains or shortness of breath O- Vitals reviewed Gen: AAOx3, NAD HEENT: Anicteric sclerae, EOMI CV: RRR no mgr nl S1S2 Pulm: CTAB no wcr Abd: +BS soft only mild left lower quadrant tenderness without guarding or rebound ND no masses or hernias Ext: No edema Skin: No rashes, warm/dry Neuro: Full strength throughout CBC BMP reviewed A/M-[id number]-rngg-old male here with acute sigmoid diverticulitis. Improving with IV antibiotics, bowel rest, pain control Stable for discharged home to complete 10-day course of antibiotics Needs colonoscopy in 6 to 8 weeks after discharge Needs improved diabetes control after discharge Coding Level of Care Code 02981 INP/OBS DISCH >30 MIN Diagnoses Sigmoid diverticulitis K57.32 Alcoholic cirrhosis of liver without ascites K70.30 Ascites presence: without ascites Hepatic cirrhosis type: alcoholic cirrhosis Anxiety F41.9
== END 2024-04-09 14:15 | disposition home or self-care (01) | DRG 378 ==
LOC: ED 19:43 → EDINP 04-05 01:43 → SUATTDRO 04-05 01:43 → 4W 04-05 03:25 → 3W 04-08 17:09
DX: K76.6 Portal hypertension; G47.00 Insomnia, unspecified; E78.5 Hyperlipidemia, unspecified; K21.9 Gastro-esophageal reflux disease without esophagitis; K57.33 Diverticulitis of large intestine without perforation or abscess with bleeding; Z79.84 Long term (current) use of oral hypoglycemic drugs; F10.21 Alcohol dependence, in remission; Z80.0 Family history of malignant neoplasm of digestive organs; F41.9 Anxiety disorder, unspecified; Z79.51 Long term (current) use of inhaled steroids; K70.30 Alcoholic cirrhosis of liver without ascites; E11.9 Type 2 diabetes mellitus without complications; G40.909 Epilepsy, unspecified, not intractable, without status epilepticus; Y90.0 Blood alcohol level of less than 20 mg/100 ml; D69.6 Thrombocytopenia, unspecified; Z79.899 Other long term (current) drug therapy; I65.29 Occlusion and stenosis of unspecified carotid artery; I10 Essential (primary) hypertension; G25.81 Restless legs syndrome; R19.09 Other intra-abdominal and pelvic swelling, mass and lump; F33.9 Major depressive disorder, recurrent, unspecified; Z79.02 Long term (current) use of antithrombotics/antiplatelets

== ENCOUNTER 2025-05-23 03:03 | Inpatient (IN) ==
[2025-05-23] MEDS ORDERED: SODIUM CHLORIDE 0.9% 100 ML IV PRN (03:14)
--- NOTE | 2025-05-23 03:14 | Emergency Department Note ---
Impression & Plan Upper GI bleed, Acute blood loss anemia, BELKIS (acute kidney injury), Esophageal varices determined by endoscopy ED Provider Note NAME: FRED HOGAN AGE: 64 SEX: M : 1960 ARRIVES VIA: Ambulance INFORMANT: Patient, EMS report ED PROVIDER(S): Wild Salamanca MD CHIEF COMPLAINT: Gastrointestinal bleeding MEDICAL DECISION MAKING: Patient presents for the above with coffee-ground emesis. IV was established 2 large-bore IVs obtained IV fluids started along with point of care. Did review the patient's prior EGD report which showed that the patient did have varices so the patient was ordered PPI bolus and drip as well as octreotide bolus and drip. Patient's blood work shows a hemoglobin of 10.4. This is a 6 point drop compared to December. The patient was ordered to be given 2 units of O- now with 2 units to be on hold. White count of 12. Platelet count is unremarkable. The patient's kidney function is unremarkable. The patient does have significant prerenal azotemia which would be consistent with upper GI bleeding. I did message the on-call gore cutter MARNIE Everett with Dr. Villalba. I also did speak with Dr. Samuel with GI who stated that he would be seen when he arrived this morning. The patient's blood pressures have been holding and the patient's tachycardia has improved. I did speak with the on-call hospital service Dr. Gil saw him at the bedside did have another episode of vomiting but not significantly so. The patient was ordered additional antiemetics via the medicine service. The patient was seen and evaluated by intensive care service and subsequently admitted to the intensive care unit. Critical Care: I have personally spent 65 minutes of critical care time in direct management of this patient. This includes bedside care, interpretation of diagnostic studies, and testing, discussion with consultants, patient, and family members, and other require inpatient management activities. This 65 minutes is in excess of all separately billable procedures. Discussion w/ other healthcare providers: MARNIE Everett and Dr. Menchaca. Intensive care unit Dr. Castaneda gastroenterology Dr. Gil inpatient medicine service Prior /Outside records reviewed: I did review part of an EGD completed by Dr. Rodriguez in February 2025 which showed esophageal varices moderate portal hypertensive gastropathy and duodenal erosions. Differential diagnosis: Diverticulitis, AVM, coagulopathy, colitis, inflammatory bowel disease, malignancy, esophagitis, peptic ulcer disease, variceal bleed, gastritis, fissure, hemorrhoids, as well as other pathologies. Diagnostics, as interpreted by me: ECG: Sinus tachycardia, rate of 110, borderline QTc, normal axis no ST elevations. Cardiac monitoring: An order was placed for continuous cardiac monitoring. The monitor shows a rate of 102 with tachycardic and regular rhythm. Patient was placed on pulse oximetry Medical decision rules: None Imaging studies: I informally interpreted the patient's chest x-ray does not show evidence pneumonia or pneumothorax with formal report to follow. HPI: Patient presents due to concern for coffee-ground emesis and nausea with associated vomiting. The patient reportedly called EMS around 230 at which point the patient did have coffee-ground emesis. EMS arrived and found the patient to be diaphoretic has had a "soft blood pressure 80s over 60s but was never lower than the patient was having tachycardia per EMS. He did receive 4 of IV Zofran. The patient does feel a bit improved and EMS does state that his color appears improved compared to before. Patient states that he did have an endoscopy completed in February of this past year with Dr. Rodriguez. He denies any current alcohol use and does not take any blood thinners. Reviewed the medical records that showed the patient was diagnosed with varices and also that the patient did have a history of prior heavy alcohol use. Also with history of duodenal erosions. Patient denies any chest pains or shortness of breath. He does smoke cigars daily. PAST MEDICAL HISTORY: See Below PAST SURGICAL HISTORY: See Below SOCIAL HISTORY: See Below HOME MEDICATIONS: See Below ALLERGIES: See Below VITALS: See Below PHYSICAL EXAMINATION: GENERAL: Moderately ill in appearance. EYE EXAM: Normal conjunctiva. PERRL, no anisocoria and EOM's grossly intact w/o pain. OROPHARYNX: Moist mucus membranes, grossly normal dentition. NECK: Trachea midline, no stridor. LUNGS: Scant rhonchi. Normal chest wall mechanics. HEART: Tachycardic and regular, no MRG. ABDOMEN: Abdomen soft, non-tender, no masses, no rebound or guarding. BACK: No CVA TTP. SKIN: No rashes and no bruising. UPPER EXTREMITIES: Upper extremities are grossly normal. LOWER EXTREMITIES: Grossly normal, no edema. NEURO EXAM: Awake and alert, follows commands, no obvious facial asymmetry, normal speech, moves all 4 extremities. Past Med/Surg History Problem List (Updated 05/23/25 @ 06:29 by Wild Salamanca MD) DMII (diabetes mellitus, type 2) BELKIS (acute kidney injury) (Acute) Acute blood loss anemia (Acute) Hematemesis of fresh blood Upper GI bleed (Acute) GI bleed Diabetes mellitus with hyperglycemia Esophageal varices determined by endoscopy (Acute) Loss of protective sensation of skin of deformed foot Left lower quadrant abdominal pain (Acute) Liver cirrhosis Portal hypertension Splenomegaly Word finding difficulty Vitamin B12 deficiency Hypokalemia (Acute) Hypomagnesemia (Acute) Laceration of tragus of right ear (Acute) High triglycerides Pancytopenia RLS (restless legs syndrome) (Chronic) Seizure disorder (Chronic) Carotid artery stenosis (Chronic) left 75% requiring endarterectomy, [facility] Major depression, recurrent Diverticulosis (Chronic) Anxiety (Chronic) Hyperlipidemia (Chronic) Hypertension (Chronic) Medical History H/O traumatic subdural hematoma History of colon polyps x3 in remote hx , since clear. History of brachytherapy Anxiety medication and counseling for. History of prostate cancer (2015) hx brachytherapy and external beam radiation. History of TIA (transient ischemic attack) x2 in past when heavily drinking approx 2012/no residuals. H/O traumatic subdural hematoma very small per pt approx 2014 History of seizure approx 2014 x2 "alcohol related" - continues to follow Dr. Hooks yearly. Restless leg syndrome Dr Hooks yearly. 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 unknown if current. Stenosis of right carotid artery <50 %. yearly checks. Dr. Loera/[facility]. History of diverticulitis summer 2023 last flare & hospitalized [facility]. was on clopidogrel at that time and was d/c'd since this stay. History of diabetic ulcer of foot Diabetes medication and counseling for. Panic attacks controlled with medication. Depression Prostate cancer (07/30/16) Surgical History History of endoscopy upper History of urologic surgery to look in bladder when prostate ca tx completed. History of colonoscopy History of carotid endarterectomy left History of cholecystectomy ~2000 History of repair of ACL left Family History Father , Mother age 56 of colon cancer Colorectal cancer 56 yrs old when Mother , the age 78 of a blood clot Clotting disorder Dementia Daughter Family history of reaction to anesthesia nausea Other Cancer Social History Smoking Status: Current every day smoker Tobacco Type: Cigars Age Started Using Tobacco: 43; packs per day: 0.25; Cigarettes Per Day: 1-2 cigars/day; Second Hand Exposure: No; Do You Dip or Chew Tobacco: No; Hx Alcohol Use: No Hx Substance Use: No Preferred Language: Polish Communication Ability: Effective Visual Impairment: No Limitations Hearing Ability: Normal Dormitory Supervisor Required: No Beliefs That Will Affect Care: None marital status: Current Living Situation: Spouse current occupational status: retired 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 [employer] Feels Safe at Home: Yes Diet: regular caffeine: Yes during the past year weight has: remained stable Dental Care, Regularly: No Physical Activity Frequency: Daily Physical Activity Frequency Comment: walks daily if he can Seatbelt Use: always Sunscreen Use: Yes Assistive Devices: Glasses Allergies Allergies Allergy/AdvReac Type Severity Reaction Status Date / Time bee venom protein (honey bee) Allergy Severe ANAPHYLAXIS Verified 03/12/25 10:05 cat dander Allergy Unknown Itchy/Watery Verified 03/12/25 10:05 Eyes, Itchy throat tamsulosin Allergy Unknown Hives Verified 03/12/25 10:05 Home Meds Home Medications Medication Instructions Recorded Confirmed epinephrine 0.3 mg/0.3 mL 0.3 mg IM DIRECTED PRN Allergic 03/21/19 05/23/25 injection, auto-injector (EpiPen) Reaction buspirone 30 mg tablet 30 mg PO BID 03/08/21 05/23/25 rosuvastatin 40 mg tablet 40 mg PO QPM 04/18/21 05/23/25 hydroxyzine HCl 50 mg tablet 50 mg PO TID PRN Anxiety 08/17/21 05/23/25 desvenlafaxine succinate 100 mg 100 mg PO QAM 05/30/23 05/23/25 tablet,extended release 24 hr melatonin 10 mg tablet 10 mg PO HS 04/05/24 05/23/25 mirtazapine 30 mg tablet 45 mg PO HS 05/13/25 05/13/25 clonidine HCl 0.1 mg tablet 0.1 mg PO TID PRN Anxiety 05/23/25 05/23/25 Previous Rx's Medication Instructions Recorded empagliflozin 25 mg tablet 25 mg PO QAM #30 tabs 01/26/25 (Jardiance) blood sugar diagnostic (OneTouch #100 ea 01/29/25 Verio test strips) lancets 33 gauge (OneTouch Delica #100 ea 01/29/25 Plus Lancet) ropinirole 0.5 mg tablet 0.5 mg PO QPM 90 days #90 tabs 02/01/25 icosapent ethyl 1 gram capsule 2 g (2 x 1 gram) PO BID #360 caps 02/17/25 (Vascepa) metformin 1,000 mg tablet 1,000 mg PO BID #180 tabs 03/09/25 carvedilol 3.125 mg tablet 3.125 mg PO BID #180 tabs 05/13/25 sitagliptin phosphate 50 mg tablet 50 mg PO DAILY #30 tabs 05/13/25 (Januvia) Results & Data (ED) Vital Signs Vital Signs - 24 hr 05/23/25 03:08 05/23/25 03:10 05/23/25 03:10 Temperature 36.9 C Temperature Source Oral Pulse Rate 118 H 110 H Pulse Rate [Apical] 105 H Respiratory Rate 18 16 Blood Pressure 88/62 L Blood Pressure [Right Arm] 94/70 L Blood Pressure Mean 70 Blood Pressure Mean [Right Arm] 78 Pulse Oximetry 94 93 Oxygen Delivery Method Room Air Room Air Sepsis Recent Fever Within 48 Hours No Sepsis New/Unexplained Change in Mental Status No Sepsis Action Taken by Nursing No Action Required 05/23/25 03:12 05/23/25 03:15 05/23/25 03:20 Temperature Temperature Source Pulse Rate Pulse Rate [Apical] 103 H 104 H Respiratory Rate 16 16 Blood Pressure Blood Pressure [Right Arm] 112/68 93/61 L Blood Pressure Mean Blood Pressure Mean [Right Arm] 82 71 Pulse Oximetry 94 94 95 Oxygen Delivery Method Room Air Room Air Room Air Sepsis Recent Fever Within 48 Hours Sepsis New/Unexplained Change in Mental Status Sepsis Action Taken by Nursing 05/23/25 03:41 05/23/25 03:50 05/23/25 03:53 Temperature 36.9 C 36.7 C Temperature Source Oral Oral Pulse Rate 102 H 101 H Pulse Rate [Apical] 103 H Respiratory Rate 16 17 17 Blood Pressure 90/65 L 90/65 L Blood Pressure [Right Arm] 119/68 Blood Pressure Mean 73 73 Blood Pressure Mean [Right Arm] 85 Pulse Oximetry 92 92 93 Oxygen Delivery Method Room Air Sepsis Recent Fever Within 48 Hours Sepsis New/Unexplained Change in Mental Status Sepsis Action Taken by Nursing 05/23/25 03:55 05/23/25 04:08 05/23/25 04:10 Temperature 36.8 C Temperature Source Temporal Artery Scan Pulse Rate 101 H Pulse Rate [Apical] 103 H 98 H Respiratory Rate 18 18 16 Blood Pressure 132/75 Blood Pressure [Right Arm] 108/71 119/66 Blood Pressure Mean 94 Blood Pressure Mean [Right Arm] 83 83 Pulse Oximetry 92 94 94 Oxygen Delivery Method Room Air Room Air Sepsis Recent Fever Within 48 Hours Sepsis New/Unexplained Change in Mental Status Sepsis Action Taken by Nursing 05/23/25 04:15 05/23/25 04:20 05/23/25 04:23 Temperature 36.9 C Temperature Source Oral Pulse Rate 99 H Pulse Rate [Apical] 100 H 102 H Respiratory Rate 18 20 18 Blood Pressure 94/66 L Blood Pressure [Right Arm] 122/70 108/67 Blood Pressure Mean 75 Blood Pressure Mean [Right Arm] 87 80 Pulse Oximetry 92 91 92 Oxygen Delivery Method Room Air Room Air Sepsis Recent Fever Within 48 Hours Sepsis New/Unexplained Change in Mental Status Sepsis Action Taken by Nursing 05/23/25 04:25 Temperature Temperature Source Pulse Rate Pulse Rate [Apical] 100 H Respiratory Rate 18 Blood Pressure Blood Pressure [Right Arm] 111/64 Blood Pressure Mean Blood Pressure Mean [Right Arm] 79 Pulse Oximetry 91 Oxygen Delivery Method Room Air Sepsis Recent Fever Within 48 Hours Sepsis New/Unexplained Change in Mental Status Sepsis Action Taken by Longterm Medications Current Medication List: was personally reviewed by me Laboratory Data Attestation: I reviewed the patient's lab results. 05/23/25 03:09 05/23/25 03:09 Lab Results 08/03/25 08/03/25 08/03/25 Range/Units 03:09 03:11 03:15 WBC 12.04 H (4.8-10.8) K/ul RBC 3.48 L (4.70-6.10) M/uL Hgb 10.4 L (14.0-18.0) g/dl POC Hgb 9.9 L (14.0-18.0) g/dl Hct 30.5 L (42.0-52.0) % POC Hct 29 L (42-52) % MCV 87.6 (80.0-100.0) fL MCH 29.9 (25.0-34.0) pg MCHC 34.1 (32.0-36.0) g/dL RDW Std Deviation 44.8 (36.4-46.3) fL RDW Coeff of Antonio 14.2 (11.5-14.5) % Plt Count 149 (130-400) K/uL MPV 11.0 (9.4-12.4) fL Immature Gran % (Auto) 0.9 % Neut % (Auto) 70.2 % Lymph % (Auto) 17.4 % [facility] [place] % (Auto) 9.5 % Eos % (Auto) 1.4 % Baso % (Auto) 0.6 % Neut # (Auto) 8.46 H (1.40-6.50) K/uL Lymph # (Auto) 2.09 (1.20-3.40) K/uL [facility] # (Auto) 1.14 H (0.11-0.59) K/uL Eos # (Auto) 0.17 (0.00-0.50) K/uL Baso # (Auto) 0.07 (0.00-0.20) K/uL Immature Gran # (Auto) 0.11 (0.01-0.20) K/uL PT 12.0 (9.0-12.0) Seconds INR 1.1 (0.9-1.1) APTT 24 (21-31) Seconds PTT Ratio 0.9 POC Sodium 137 (135-144) mmol/L Sodium 137 (136-145) mmol/L POC Potassium 4.4 (3.3-5.0) mmol/L Potassium 4.3 (3.5-5.1) mmol/L POC Chloride 103 (101-112) mmol/L Chloride 101 (98-107) mmol/L Carbon Dioxide 21 (21-32) mmol/L POC Total CO2 20 L (24-31) mmol/L Anion Gap 15 H (3-11) POC Anion Gap 20.0 (16-25) mmol/L POC BUN 50 H (7-18) mg/dl BUN 55 H D (6-23) mg/dl Creatinine 1.04 (0.6-1.4) mg/dl POC Creatinine 1.1 (0.6-1.3) mg/dl Est Cr Clr Drug Dosing 91.9 ml/min eGFR 79.19 BUN/Creatinine Ratio 52.9 H (10-20) Glucose 218 H (70-99(Fasting)) mg/dl POC Glucose (other) 207 H (70-99) mg/dl Calcium 8.7 (8.6-10.3) mg/dl POC Ioniz Calcium Kathy 1.15 (1.12-1.32) mmol/l Total Bilirubin 0.6 (0.2-1.0) mg/dl AST 22 (13-39) U/L ALT 21 (7-52) U/L Alkaline Phosphatase 42 (34-104) U/L Total Protein 5.9 L (6.0-8.3) gm/dl Albumin 3.3 L (3.4-5.0) gm/dl Globulin 2.6 (2.5-4.0) gm/dl Albumin/Globulin Ratio 1.3 (0.9-2) Blood Type O Positive Antibody Screen NEGATIVE Crossmatch See Detail Administered Medications Pantoprazole Sodium 40 mg/ (Dextrose) 100 mls @ 20 mls/hr IV Q5H [facility] Stop: 06/22/25 03:29 Last Admin: 05/23/25 04:00 Dose: 8 mg/hr, 20 mls/hr Documented By: AN Octreotide Acetate 500 mcg/ (Sodium Chloride) 100.5 mls @ 10.05 mls/hr IV .Q10H [facility] Stop: 06/22/25 03:14 Last Admin: 05/23/25 03:58 Dose: 50 mcg/hr, 10.1 mls/hr Documented By: AN Ceftriaxone Sodium (Rocephin) 2,000 mg in 50 mls @ 100 mls/hr IV Q24H [facility] Stop: 06/02/25 04:29 Last Admin: 05/23/25 05:50 Dose: 100 mls/hr Documented By: [id number] Discontinued Medications Fentanyl Citrate (Fentanyl Citrate Pf 100 Mcg/2 Ml Vial) 25 mcg IV NOW STA Stop: 05/23/25 03:24 Last Admin: 05/23/25 03:28 Dose: 25 mcg Documented By: AN Sodium Chloride (Nss) 1,000 mls @ 999 mls/hr IV .Q1H1M [facility] Stop: 05/23/25 04:15 Last Infusion: 05/23/25 04:17 Dose: Infused Documented By: Admin: 05/23/25 03:16 Dose: 999 mls/hr Documented By: AN Pantoprazole Sodium 80 mg/ (Dextrose) 120 mls @ 480 mls/hr IV NOW ONE Stop: 05/23/25 03:22 Last Infusion: 05/23/25 04:12 Dose: Infused Documented By: Admin: 05/23/25 03:44 Dose: 480 mls/hr Documented By: AN Octreotide Acetate 100 mcg/ (Syringe) 10 mls @ 3 mls/min IV NOW STA Stop: 05/23/25 03:11 Last Admin: 05/23/25 03:58 Dose: 3 mls/min Documented By: AN Promethazine HCl (Phenergan) 12.5 mg in 50.5 mls @ 202 mls/hr IV NOW STA Stop: 05/23/25 04:22 Last Infusion: 05/23/25 04:27 Dose: Infused Documented By: Admin: 05/23/25 04:12 Dose: 202 mls/hr Documented By: AN Miscellaneous (Stat Iv/Im) 1 each N/A NOW STA Stop: 05/23/25 03:09 Last Admin: 05/23/25 03:44 Dose: 1 each Documented By: AN Ondansetron HCl (Ondansetron Inj 2 Mg/Ml 2 Ml Vial) 4 mg IV NOW STA Stop: 05/23/25 03:23 Last Admin: 05/23/25 03:28 Dose: 4 mg Documented By: AN Pantoprazole Sodium (Pantoprazole Bolus/Drip) 1 each IV NOW STA Stop: 05/23/25 03:09 Last Admin: 05/23/25 03:44 Dose: 1 each Documented By: AN Imaging Data Radiologist's Impression: Chest X-Ray 05/23/25 03:22 EXAM: XR chest 1V portable CLINICAL HISTORY: abnormal breath sounds TECHNIQUE: Radiograph of chest was acquired. COMPARISON: No FINDINGS: The lungs are clear and well-expanded with no pulmonary infiltrate or pleural effusion. The cardiomediastinal silhouette is within normal limits. No acute osseous abnormality. IMPRESSION: 1. No acute cardiopulmonary disease. Electronically signed by Roque Betts 05-23-2025 04:39 AM Discharge Plan Visit Data Chief Complaint: GI Bleed Stated Complaint: GI BLEED, ABD DISTENSION ED Provider: Wild Salamanca Discharge Problem: Upper GI bleed, Acute blood loss anemia, BELKIS (acute kidney injury), Esophageal varices determined by endoscopy Patient Disposition: Admitted As Inpatient Condition: Serious Discharge Instructions Interventions: ED Discharge Assessment Last Done: 05/23/25 04:48
[2025-05-23] MEDS: SODIUM CHLORIDE 0.9% 1,000 ML IV SCH (03:16)
[2025-05-23] MEDS: ONDANSETRON INJ 2 MG/ML 2 ML VIAL IV STA (03:28)
[2025-05-23 03:32] LABS: Hematocrit (blood only) 30.5 % (42.0-52.0); Hemoglobin 10.4 g/dl (14.0-18.0); Immature Granulocytes # (auto) 0.11 K/uL (0.01-0.20); Immature Granulocytes % (auto) 0.9 %; Mean Corpuscular Hemoglobin 29.9 pg (25.0-34.0); Mean Corpuscular Volume 87.6 fL (80.0-100.0); Platelet Count 149 K/uL (130-400); RDW Standard Deviation 44.8 fL (36.4-46.3); Red Blood Count 3.48 M/uL (4.70-6.10); White Blood Count 12.04 K/ul (4.8-10.8)
[2025-05-23] MEDS: PANTOPRAZOLE BOLUS/DRIP IV STA (03:44)
[2025-05-23] MEDS: STAT IV/IM STA (03:44)
[2025-05-23 03:55] LABS: Alanine Aminotransferase 21.0 U/L (7-52); Albumin Globulin Ratio 1.3 (0.9-2); Alkaline Phosphatase 42.0 U/L (34-104); Anion Gap 15.0 (3-11); Bilirubin,Total 0.6 mg/dl (0.2-1.0); Blood Urea Nitrogen 55.0 mg/dl (6-23); Calcium 8.7 mg/dl (8.6-10.3); Carbon Dioxide 21.0 mmol/L (21-32); Chloride 101.0 mmol/L (98-107); Creatinine Clr Calc Pharmacy 91.9 ml/min; Globulin 2.6 gm/dl (2.5-4.0); Glucose 218.0 mg/dl (70-99(Fasting)); Potassium 4.3 mmol/L (3.5-5.1); Sodium 137.0 mmol/L (136-145); Total Protein 5.9 gm/dl (6.0-8.3)
[2025-05-23] MEDS: OCTREOTIDE ACETATE 100 MCG in SYRINGE 9 ML IV STA (03:58)
[2025-05-23] MEDS: OCTREOTIDE ACETATE 500 MCG in SODIUM CHLORIDE 0.9% 100 ML IV SCH (03:58)
[2025-05-23] MEDS: PANTOprazole 40 MG in DEXTROSE 5% MINI-B 100 ML IV SCH (04:00)
[2025-05-23] MEDS: PROMETHAZINE 12.5 MG/50.5 ML BAG IV STA (04:12)
[2025-05-23 04:30] LABS: INR 1.1 (0.9-1.1); Partial Thromboplastin Time 24 Seconds (21-31); Prothrombin Time 12.0 Seconds (9.0-12.0)
--- NOTE | 2025-05-23 04:31 | History & Physical Report ---
Date of Service May 23, 2025 Assessment & Plan (1) Upper GI bleed: (2) Hematemesis of fresh blood: (3) Diabetes mellitus with hyperglycemia: (4) Esophageal varices determined by endoscopy: (5) Liver cirrhosis: (6) Portal hypertension: (7) Splenomegaly: (8) Seizure disorder: Plan The patient is a 64-year-old male with past medical history including sigmoid diverticulitis, lower GI bleeding, thrombocytopenia, diabetes mellitus, splenomegaly, portal hypertension, liver cirrhosis, history of alcohol dependence, esophageal varices, major depression, seizure disorder, and hypertension. He presents to the emergency department with complaint of coffee- ground emesis that began around 230 this evening. His symptoms initially began with abdominal cramping over the past few days. Upon arrival in the emergency department patient did vomit a large volume of blood. He was given normal saline 1 L, started on Protonix drip, and octreotide drip. He was also given Zofran 4 mg IV, and fentanyl 25 mcg IV. He is receiving 2 units PRBCs from the emergency department, with 2 units on hold. Blood pressure at its lowest was 88/62, and presently is 107/52. Upper GI bleed/coffee-ground emesis/hematemesis of fresh blood/esophageal varices grade 2/history of gastritis/cirrhosis/history of portal hypertension gastropathy- Admission to the ICU N.p.o. Continue Protonix drip Continue octreotide drip To receive 2 units PRBCs from the ED, with 2 units on hold H&H every 6 hours CBCD, chemistry profile and magnesium level every morning Zofran 4 mg IV every 6 hours as needed Phenergan 12.5 mg IV given x 1 in the ED Status post 1 L normal saline bolus in the ED Last colonoscopy on 03/04/2025 notes radiation telangiectasia, a transverse colon polyp was removed and a distal sigmoid colon polyp was removed. Last EGD was 03/04/2025, noting grade 2 esophageal varices, portal hypertensive gastropathy, gastritis, and nonbleeding duodenal erosions. Acetaminophen 1 g IV every 8 hours as needed for mild pain or fever Ceftriaxone 2 g IV every 24 hours Consult gastroenterology Diabetes mellitus- Glucose 218 on admission Hold empagliflozin, metformin and sitagliptin Placed on Accu-Cheks with [facility] glycemic consult Hypertension- Hold carvedilol Mood disorder- Hold buspirone, desvenlafaxine, hydroxyzine, mirtazapine, melatonin and ropinirole Hyperlipidemia- Hold icosapent and rosuvastatin while n.p.o. History of Present Illness Chief Complaint: The patient presents to the emergency department with complaint of coffee-ground emesis that began around 230 this morning. He has been having some abdominal cramping on and off for the past couple days. Upon arrival to the emergency department his abdomen was distended, he appeared diaphoretic and pale. Primary Care Provider: Wesley Gray DO The patient is a 64-year-old male with past medical history including sigmoid diverticulitis, lower GI bleeding, thrombocytopenia, diabetes mellitus, splenomegaly, portal hypertension, liver cirrhosis, history of alcohol dependence, esophageal varices, major depression, seizure disorder, and hypertension. He presents to the emergency department with complaint of coffee- ground emesis that began around 230 this evening. His symptoms initially began with abdominal cramping over the past few days. Upon arrival in the emergency department patient did vomit a large volume of blood. He was given normal saline 1 L, started on Protonix drip, and octreotide drip. He was also given Zofran 4 mg IV, and fentanyl 25 mcg IV. He is receiving 2 units PRBCs from the emergency department, with 2 units on hold. Blood pressure at its lowest was 88/62, and presently is 107/52. Allergies Allergy/AdvReac Type Severity Reaction Status Date / Time bee venom protein (honey bee) Allergy Severe ANAPHYLAXIS Verified 03/12/25 10:05 cat dander Allergy Unknown Itchy/Watery Verified 03/12/25 10:05 Eyes, Itchy throat tamsulosin Allergy Unknown Hives Verified 03/12/25 10:05 Home Medications Medication Instructions Recorded Confirmed Type epinephrine 0.3 mg/0.3 mL 0.3 mg IM DIRECTED PRN Allergic 03/21/19 05/13/25 History injection, auto-injector (EpiPen) Reaction buspirone 30 mg tablet 30 mg PO BID 03/08/21 05/13/25 History rosuvastatin 40 mg tablet 40 mg PO QPM 04/18/21 05/13/25 History hydroxyzine HCl 50 mg tablet 50 mg PO TID PRN Anxiety 08/17/21 05/13/25 History desvenlafaxine succinate 100 mg 100 mg PO QAM 05/30/23 05/13/25 History tablet,extended release 24 hr melatonin 10 mg tablet 10 mg PO HS 04/05/24 05/13/25 History empagliflozin 25 mg tablet 25 mg PO QAM #30 tabs 01/26/25 05/13/25 Rx (Jardiance) [facility]/25 03/12/25 Rx Verio test strips) lancets 33 gauge ([facility] #100 ea 01/29/25 03/12/25 Rx Plus Lancet) ropinirole 0.5 mg tablet 0.5 mg PO QPM 90 days #90 tabs 02/01/25 05/13/25 Rx icosapent ethyl 1 gram capsule 2 g (2 x 1 gram) PO BID #360 caps 02/17/25 05/13/25 Rx (Vascepa) metformin 1,000 mg tablet 1,000 mg PO BID #180 tabs 03/09/25 05/13/25 Rx carvedilol 3.125 mg tablet 3.125 mg PO BID #180 tabs 05/13/25 05/13/25 Rx mirtazapine 30 mg tablet 45 mg PO HS 05/13/25 05/13/25 History sitagliptin phosphate 50 mg tablet 50 mg PO DAILY #30 tabs 05/13/25 05/13/25 Rx (Januvia) Past Med/Surg History Problem List (Updated 05/23/25 @ 05:08 by Arun Powell MD) Hematemesis of fresh blood Upper GI bleed GI bleed Diabetes mellitus with hyperglycemia Esophageal varices determined by endoscopy Loss of protective sensation of skin of deformed foot Left lower quadrant abdominal pain (Acute) Liver cirrhosis Portal hypertension Splenomegaly Word finding difficulty Vitamin B12 deficiency Hypokalemia (Acute) Hypomagnesemia (Acute) Laceration of tragus of right ear (Acute) High triglycerides Pancytopenia RLS (restless legs syndrome) (Chronic) Seizure disorder (Chronic) Carotid artery stenosis (Chronic) left 75% requiring endarterectomy, [facility] Major depression, recurrent Diverticulosis (Chronic) Anxiety (Chronic) Hyperlipidemia (Chronic) Hypertension (Chronic) Medical History H/O traumatic subdural hematoma History of colon polyps x3 in remote hx , since clear. History of brachytherapy Anxiety medication and counseling for. History of prostate cancer (2015) hx brachytherapy and external beam radiation. History of TIA (transient ischemic attack) x2 in past when heavily drinking approx 2012/no residuals. H/O traumatic subdural hematoma very small per pt approx 2014 History of seizure approx 2014 x2 "alcohol related" - continues to follow Dr. Hooks yearly. Restless leg syndrome Dr Hooks yearly. 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 unknown if current. Stenosis of right carotid artery <50 %. yearly checks. Dr. Loera/[facility]. History of diverticulitis summer 2023 last flare & hospitalized [facility]. was on clopidogrel at that time and was d/c'd since this stay. History of diabetic ulcer of foot Diabetes medication and counseling for. Panic attacks controlled with medication. Depression Prostate cancer (07/30/16) Surgical History History of endoscopy upper History of urologic surgery to look in bladder when prostate ca tx completed. History of colonoscopy History of carotid endarterectomy left History of cholecystectomy ~1999 History of repair of ACL left Family History Father , Mother age 56 of colon cancer Colorectal cancer 56 yrs old when Mother , the age 78 of a blood clot Clotting disorder Dementia Daughter Family history of reaction to anesthesia nausea Other Cancer Social History Smoking Status: Light tobacco smoker Tobacco Type: Cigars Age Started Using Tobacco: 43; packs per day: 0.25; Cigarettes Per Day: daily cigars 1-2/advised; Second Hand Exposure: No; Do You Dip or Chew Tobacco: No; Hx Alcohol Use: Yes (hx of, sober 3.5 yr) Alcohol type: hard liquor Alcohol type Comment: Fifth of whiskey lasts 1-2 days Hx Substance Use: No Preferred Language: Panamanian Communication Ability: Effective Visual Impairment: No Limitations Hearing Ability: Normal 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 [employer] Feels Safe at Home: Yes Diet: regular caffeine: Yes during the past year weight has: remained stable Dental Care, Regularly: No Physical Activity Frequency: Daily Physical Activity Frequency Comment: walks daily if he can Seatbelt Use: always Sunscreen Use: Yes Assistive Devices: Glasses Review of Systems Review of Systems: The patient, along with his 's help, denies chest pain, palpitations, shortness of breath, dyspnea on exertion, cough, lower extremity swelling, sore throat, fevers, chills, sweats, blood in urine or stool, dysuria, urinary frequency or urgency, lightheadedness, dizziness, headache, memory loss, loss of consciousness, rash, imbalance, focal weakness, numbness or tingling in arms or legs, generalized arthralgias or myalgias, back or neck pain, or night sweats. The review of systems is otherwise negative other than for that already noted above, and at least 10 systems have been reviewed. Physical Exam Physical Exam: The patient is awake, alert and oriented 3, normocephalic and atraumatic, lying in bed and in no acute distress. HEENT--PERRL, EOMI, mucous membranes and oropharynx dry. Neck--supple. No JVD. No bruits. Thyroid normal, trachea midline, no adenopathy. Heart-mildly tachycardic Lungs--clear bilaterally, no respiratory distress, no accessory muscle use. Abdomen--normal bowel sounds and soft. Nontender. Mildly distended and tympanitic Extremities-- No edema. Dermatologic--appears pale Neurologic--cranial nerves II through XII grossly intact. Rheumatologic--normal range of motion. Psychiatric--normal affect. Results & Data Results & Data Vital Signs (Past 12 Hours) Vital Signs Temp Pulse Pulse Resp BP BP Pulse Ox 05/23/25 04:25 100 H 18 111/64 91 05/23/25 04:23 36.9 C 99 H 18 94/66 L 92 05/23/25 04:20 102 H 20 108/67 91 05/23/25 04:15 100 H 18 122/70 92 05/23/25 04:10 98 H 16 119/66 94 05/23/25 04:08 36.8 C 101 H 18 132/75 94 05/23/25 03:55 103 H 18 108/71 92 05/23/25 03:53 36.7 C 101 H 17 90/65 L 93 05/23/25 03:50 36.9 C 102 H 17 90/65 L 92 05/23/25 03:41 103 H 16 119/68 92 05/23/25 03:20 104 H 16 93/61 L 95 05/23/25 03:15 103 H 16 112/68 94 05/23/25 03:12 94 05/23/25 03:10 105 H 16 94/70 L 93 05/23/25 03:10 36.9 C 110 H 18 88/62 L 94 05/23/25 03:08 118 H O2 Del Method 05/23/25 04:25 Room Air 05/23/25 04:23 05/23/25 04:20 Room Air 05/23/25 04:15 Room Air 05/23/25 04:10 Room Air 05/23/25 04:08 05/23/25 03:55 Room Air 05/23/25 03:53 05/23/25 03:50 05/23/25 03:41 Room Air 05/23/25 03:20 Room Air 05/23/25 03:15 Room Air 05/23/25 03:12 Room Air 05/23/25 03:10 Room Air 05/23/25 03:10 Room Air 05/23/25 03:08 Laboratory Results Laboratory Results WBC 12.04 K/ul (4.8-10.8) H 05/23/25 03:09 RBC 3.48 M/uL (4.70-6.10) L 05/23/25 03:09 Hgb 10.4 g/dl (14.0-18.0) L 05/23/25 03:09 POC Hgb 9.9 g/dl (14.0-18.0) L 05/23/25 03:11 Hct 30.5 % (42.0-52.0) L 05/23/25 03:09 POC Hct 29 % (42-52) L 05/23/25 03:11 MCV 87.6 fL (80.0-100.0) 05/23/25 03:09 MCH 29.9 pg (25.0-34.0) 05/23/25 03:09 MCHC 34.1 g/dL (32.0-36.0) 05/23/25 03:09 RDW Std Deviation 44.8 fL (36.4-46.3) 05/23/25 03:09 RDW Coeff of Antonio 14.2 % (11.5-14.5) 05/23/25 03:09 Plt Count 149 K/uL (130-400) 05/23/25 03:09 MPV 11.0 fL (9.4-12.4) 05/23/25 03:09 Immature Gran % (Auto) 0.9 % 05/23/25 03:09 Neut % (Auto) 70.2 % 05/23/25 03:09 Lymph % (Auto) 17.4 % 05/23/25 03:09 Dodge % (Auto) 9.5 % 05/23/25 03:09 Eos % (Auto) 1.4 % 05/23/25 03:09 Baso % (Auto) 0.6 % 05/23/25 03:09 Neut # (Auto) 8.46 K/uL (1.40-6.50) H 05/23/25 03:09 Lymph # (Auto) 2.09 K/uL (1.20-3.40) 05/23/25 03:09 Dodge # (Auto) 1.14 K/uL (0.11-0.59) H 05/23/25 03:09 Eos # (Auto) 0.17 K/uL (0.00-0.50) 05/23/25 03:09 Baso # (Auto) 0.07 K/uL (0.00-0.20) 05/23/25 03:09 Immature Gran # (Auto) 0.11 K/uL (0.01-0.20) 05/23/25 03:09 PT 12.0 Seconds (9.0-12.0) 05/23/25 03:09 INR 1.1 (0.9-1.1) 05/23/25 03:09 APTT 24 Seconds (21-31) 05/23/25 03:09 PTT Ratio 0.9 05/23/25 03:09 POC Sodium 137 mmol/L (135-144) 05/23/25 03:11 Sodium 137 mmol/L (136-145) 05/23/25 03:09 POC Potassium 4.4 mmol/L (3.3-5.0) 05/23/25 03:11 Potassium 4.3 mmol/L (3.5-5.1) 05/23/25 03:09 POC Chloride 103 mmol/L (101-112) 05/23/25 03:11 Chloride 101 mmol/L (98-107) 05/23/25 03:09 Carbon Dioxide 21 mmol/L (21-32) 05/23/25 03:09 POC Total CO2 20 mmol/L (24-31) L 05/23/25 03:11 Anion Gap 15 (3-11) H 05/23/25 03:09 POC Anion Gap 20.0 mmol/L (16-25) 05/23/25 03:11 POC BUN 50 mg/dl (7-18) H 05/23/25 03:11 BUN 55 mg/dl (6-23) H D 05/23/25 03:09 Creatinine 1.04 mg/dl (0.6-1.4) 05/23/25 03:09 POC Creatinine 1.1 mg/dl (0.6-1.3) 05/23/25 03:11 Est Cr Clr Drug Dosing 91.9 ml/min 05/23/25 03:09 eGFR 79.19 05/23/25 03:09 BUN/Creatinine Ratio 52.9 (10-20) H 05/23/25 03:09 Glucose 218 mg/dl (70-99(Fasting)) H 05/23/25 03:09 POC Glucose (other) 207 mg/dl (70-99) H 05/23/25 03:11 Calcium 8.7 mg/dl (8.6-10.3) 05/23/25 03:09 POC Ioniz Calcium Kathy 1.15 mmol/l (1.12-1.32) 05/23/25 03:11 Total Bilirubin 0.6 mg/dl (0.2-1.0) 05/23/25 03:09 AST 22 U/L (13-39) 05/23/25 03:09 ALT 21 U/L (7-52) 05/23/25 03:09 Alkaline Phosphatase 42 U/L (34-104) 05/23/25 03:09 Total Protein 5.9 gm/dl (6.0-8.3) L 05/23/25 03:09 Albumin 3.3 gm/dl (3.4-5.0) L 05/23/25 03:09 Globulin 2.6 gm/dl (2.5-4.0) 05/23/25 03:09 Albumin/Globulin Ratio 1.3 (0.9-2) 05/23/25 03:09 Blood Type O Positive 05/23/25 03:15 Antibody Screen NEGATIVE 05/23/25 03:15 Crossmatch See Detail 05/23/25 03:15 Impressions Chest X-Ray 05/23/25 03:22 EXAM: XR chest 1V portable CLINICAL HISTORY: abnormal breath sounds TECHNIQUE: Radiograph of chest was acquired. COMPARISON: No FINDINGS: The lungs are clear and well-expanded with no pulmonary infiltrate or pleural effusion. The cardiomediastinal silhouette is within normal limits. No acute osseous abnormality. IMPRESSION: 1. No acute cardiopulmonary disease. Electronically signed by Roque Betts 05-23-2025 04:39 AM Code Status & VTE Plan Code Status Full code VTE Prophylaxis Plan VTE Prophylaxis will be ordered: Yes PG Care Time/CCT Total # of Minutes Spent Total Time Spent with Patient: Total time spent is greater than 50% in coordination of care (as documented) at patient's floor/unit and/or counseling patient: 50 minutes Coding Level of Care Code 31393 INT INP/OBS CARE 3/75MIN Diagnoses Upper GI bleed K92.2 Hematemesis of fresh blood K92.0 Diabetes mellitus with hyperglycemia E11.65 Esophageal varices determined by endoscopy I85.00 Alcoholic cirrhosis of liver without ascites K70.30 Hepatic cirrhosis type: alcoholic cirrhosis Ascites presence: without ascites Portal hypertension K76.6 Splenomegaly R16.1 Seizure disorder G40.909 (5) Liver cirrhosis Hepatic cirrhosis type: alcoholic cirrhosis Ascites presence: without ascites Qualified Code(s): K70.30 - Alcoholic cirrhosis of liver without ascites
--- NOTE | 2025-05-23 04:39 | XRay Report ---
EXAM: XR chest 1V portable CLINICAL HISTORY: abnormal breath sounds TECHNIQUE: Radiograph of chest was acquired. COMPARISON: No FINDINGS: The lungs are clear and well-expanded with no pulmonary infiltrate or pleural effusion. The cardiomediastinal silhouette is within normal limits. No acute osseous abnormality. IMPRESSION: 1. No acute cardiopulmonary disease. Electronically signed by Roque Betts 05-23-2025 04:39 AM
--- NOTE | 2025-05-23 04:51 | Critical Care Consultation ---
Date of Consultation May 23, 2025 Assessment & Plan (1) GI bleed: (2) Acute blood loss anemia: (3) BELKIS (acute kidney injury): (4) DMII (diabetes mellitus, type 2): Plan Reason Critically Ill: 64 YOM with history of alcoholic cirrhosis with portal hypertension and grade II esophageal varices. Presents with hematemesis and dark stools for past 2 days with worsening of symptoms at 0230. To ICU for hemodynamic monitoring, continued resuscitation while awaiting evaluation by specialist. Neuro - No acute needs CAM ICU: Negative - Patient reports just being tired no clear encephalopathy and without jaundice - Continue home topirimate for headaches when able to tolerate PO - Continue Buspirone and Effexor when able to tolerate PO Cardiac - acute blood loss anemia secondary to likely GI bleed - Currently preserving his MAPS, better with blood transfusion - attention will be paid to monitor for over resuscitation in setting of portal htn and esophageal varices - Follow urine output and organ perfusion - currently with BELKIS - Hold Carvedilol until hemodynamics proven stable - hold statin until able to tolerate PO Respiratory - No acute needs GI - GI bleed unspecified- likely upper with hematemesis and elevated BUN, Hx: Cirrhosis and grade II esophageal varices - Likely UGIB resulting in anemia- Yaritza 11 - Continue Protonix infusion - Continue with Octreotide infusion - if symptoms worsen or hemodynamics unstable- consider placement of NGT and/or intubation and will notify GI 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 relations manager - Continue NPO - INR normal and LFTs normal - Zofran and Reglan tiered for nausea/vomiting RENAL/LYTES - BELKIS, mild AG elevation - BELKIS- likely secondary to UGI bleed and hypovolemia - as above- follow with routine labs - no acute needs, hx: prostate cancer - follow urine output ENDO - DMII - Hold oral agents- goal < 180mg/dl, ICU hyperglycemic protocol HEME - acute blood loss anemia - HGB 10 - baseline 14-16- transfuse 2u PRBC at this time and follow closely ID - empiric coverage for hx cirrhosis and esophageal varices- continue Rocephin LINES/IV ACCESS - PIV Continue use of these lines- maintain 2 18g or greater while in the ICU DVT PROPHYLAXIS - SCDS, chemoprophylaxis will be on hold in setting of active bleeding DISPO: ICU care until evaluated by GI interventional specialist and hemodynamics proven stable I have personally spent 40 minutes of critical care time in the direct management of this patient. This is a life/limb threatening event. This includes time spent evaluating patient, direct bedside care, chart review, placing orders, interpretation of diagnostic studies, discussion with consultants, patie nt, and family members, as well as other required patient management activities. This time is exclusive of all separately billable procedures, and teaching time and separate from and in addition to any other critical care service time. Thank you for allowing us to participate in the care of this patient. Please refer to my attending physician's documentation for any further recommendations. Supervising Physician Co-Signing Physician Notes I have personally evaluated and examined this patient. I agree with assessment and plan of Joann DYE. Patient complaining of generalized abdominal discomfort and generally feeling unwell. Awaiting EGD. History of Present Illness Reason for Consultation: GI bleed unspecified- acute Requesting Physician: Arun Powell MD Attending Physician: Arun Powell MD History of Present Illness 64 YOM with medical history of: Traumatic subdural hematoma, HTN, HLD, anxiety/depression, ETOH use (quit ~ 4years ago), headaches (on topiramate), seizure history in setting of sub-durals (off medication since 2020), prostate cancer (2017- treated with seed implant and Radiation and gamma therapy), and cirrhosis with portal hypertension and Grade II esophageal varices. Patient is accompanied by his to the ER. Patient reports that he started having crampy abdominal pain on 05/21/25 that was non-specific at first and associated with some nausea and dark stools. This then progressed to more epigastric abdominal pain that was associated with dark black/brown emesis. The patient reports that at 0200 05/23/25 he had more pain and more vomiting and that is what led him to seek medical attention. In the ER the patient had routine labs per formed CXR, ECG performed, type and cross completed. The patient has had 2 episodes of emesis that remains black while in the ER, most recent at ~0400 that was reported as small amount. He was imitated on Protonix infusion and Octreotide infusion, as well as 2 units of PRBC to be transfused. GI was consulted by ER provider and they will see him this morning, or earlier if things change. Patient was seen in B1 in the ER- he is awake and alert, but fatigued appearing, abdomen is softly distended without guarding. He states that he feels slightly better since coming to the ER in regards to his abdominal pain. Patient will be brought to the ICU for continued resuscitation, hemodynamic monitoring until he is proven stable and evaluation by GI is completed. Recently started on Carvedilol for his portal htn by his PCP. CODE: FULL Allergies Allergy/AdvReac Type Severity Reaction Status Date / Time bee venom protein (honey bee) Allergy Severe ANAPHYLAXIS Verified 03/12/25 10:05 cat dander Allergy Unknown Itchy/Watery Verified 03/12/25 10:05 Eyes, Itchy throat tamsulosin Allergy Unknown Hives Verified 03/12/25 10:05 Home Medications Medication Instructions Recorded Confirmed Type epinephrine 0.3 mg/0.3 mL 0.3 mg IM DIRECTED PRN Allergic 03/21/19 05/23/25 History injection, auto-injector (EpiPen) Reaction buspirone 30 mg tablet 30 mg PO BID 03/08/21 05/23/25 History rosuvastatin 40 mg tablet 40 mg PO QPM 04/18/21 05/23/25 History hydroxyzine HCl 50 mg tablet 50 mg PO TID PRN Anxiety 08/17/21 05/23/25 History desvenlafaxine succinate 100 mg 100 mg PO QAM 05/30/23 05/23/25 History tablet,extended release 24 hr melatonin 10 mg tablet 10 mg PO HS 04/05/24 05/23/25 History empagliflozin 25 mg tablet 25 mg PO QAM #30 tabs 01/26/25 05/23/25 Rx (Jardiance) blood sugar diagnostic (OneTouch #100 ea 01/29/25 03/12/25 Rx Verio test strips) lancets 33 gauge (OneTouch Delica #100 ea 01/29/25 03/12/25 Rx Plus Lancet) ropinirole 0.5 mg tablet 0.5 mg PO QPM 90 days #90 tabs 02/01/25 05/23/25 Rx icosapent ethyl 1 gram capsule 2 g (2 x 1 gram) PO BID #360 caps 02/17/25 05/23/25 Rx (Vascepa) metformin 1,000 mg tablet 1,000 mg PO BID #180 tabs 03/09/25 05/23/25 Rx carvedilol 3.125 mg tablet 3.125 mg PO BID #180 tabs 05/13/25 05/23/25 Rx mirtazapine 30 mg tablet 45 mg PO HS 05/13/25 05/13/25 History sitagliptin phosphate 50 mg tablet 50 mg PO DAILY #30 tabs 05/13/25 05/23/25 Rx (Januvia) clonidine HCl 0.1 mg tablet 0.1 mg PO TID PRN Anxiety 05/23/25 05/23/25 History Patient History Medical History (Updated 05/23/25 @ 07:18 by Denisse Ko DO) Hypertension Hyperlipidemia Major depression, recurrent Anxiety Portal hypertension H/O traumatic subdural hematoma History of colon polyps x3 in remote hx , since clear. History of brachytherapy Anxiety medication and counseling for. History of prostate cancer (2015) hx brachytherapy and external beam radiation. History of TIA (transient ischemic attack) x2 in past when heavily drinking approx 2012/no residuals. H/O traumatic subdural hematoma very small per pt approx 2014 History of seizure approx 2014 x2 "alcohol related" - continues to follow Dr. Hooks yearly. Restless leg syndrome Dr Hooks yearly. 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 unknown if current. Stenosis of right carotid artery <50 %. yearly checks. Dr. Loera/[facility]. History of diverticulitis summer 2023 last flare & hospitalized [facility]. was on clopidogrel at that time and was d/c'd since this stay. History of diabetic ulcer of foot Diabetes medication and counseling for. Panic attacks controlled with medication. Depression Prostate cancer (07/30/16) Surgical History History of endoscopy upper History of urologic surgery to look in bladder when prostate ca tx completed. History of colonoscopy History of carotid endarterectomy left History of cholecystectomy ~1999 History of repair of ACL left Family History Father , Mother age 56 of colon cancer Colorectal cancer 56 yrs old when Mother , the age 78 of a blood clot Clotting disorder Dementia Daughter Family history of reaction to anesthesia nausea Other Cancer Social History Smoking Status: Current every day smoker Tobacco Type: Cigars Age Started Using Tobacco: 43; packs per day: 0.25; Cigarettes Per Day: 1-2 cigars/day; Second Hand Exposure: No; Do You Dip or Chew Tobacco: No; Hx Alcohol Use: No Hx Substance Use: No Preferred Language: Yakut Communication Ability: Effective Visual Impairment: No Limitations Hearing Ability: Normal Deal Architect Required: No Beliefs That Will Affect Care: None marital status: Current Living Situation: Spouse current occupational status: retired 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 [employer] Feels Safe at Home: Yes Diet: regular caffeine: Yes during the past year weight has: remained stable Dental Care, Regularly: No Physical Activity Frequency: Daily Physical Activity Frequency Comment: walks daily if he can Seatbelt Use: always Sunscreen Use: Yes Assistive Devices: Glasses Review of Systems Review of Systems: REVIEW OF SYSTEMS: Constitutional: No fever, sweats or chills Eyes: No diplopia, no worsening or blurred vision ENT: normal hearing, no trouble swallowing Respiratory: No cough, sputum, dyspnea at rest or on exertion Cardiovascular: No chest pain, tightness or palpitations Abdomen: (+) pain, nausea, vomiting, change in bowel color Musculoskeletal: No joint pain, calf pain, swelling Neurologic: No weakness, numbness/tingling, or balance problems Psychiatric: (+) anxiety or depression Skin: No rash or itch Physical Exam Physical Exam: PHYSICAL EXAM: General: awake, alert, fatigued appearing Head: Normocephalic, atraumatic ENT: PERRLA, EOMI, no pharyngeal exudate, mucous membranes dry Neuro: AAO x 3, speech clear and appropriate, strength intact bilaterally 5/5, sensation intact and equal all extremities and dermatomes, no pronator drift Chest: equal rise and fall of the chest, no accessory muscle use, no heaves or thrills, Clear to auscultation, on room air, Cardiac: Regular rate and rhythm, telemetry reviewed- NSR no ectopy, skin warm dry, cap refill <3 seconds, peripheral pulses +2 no JVD, no edema GI: NABS x 4 quadrants, softly distended, nontender to palpation, no rebound, guarding or tenderness : Spontaneously voiding, no pain, no CVA tenderness, Skin: no rash or erythema, varicosities to lower extremities Results & Data Results & Data Vital Signs (Past 12 Hours) Vital Signs Temp Pulse Pulse Resp BP BP Pulse Ox 05/23/25 04:35 99 H 18 110/63 90 05/23/25 04:30 100 H 18 107/62 91 05/23/25 04:25 100 H 18 111/64 91 05/23/25 04:23 36.9 C 99 H 18 94/66 L 92 05/23/25 04:20 102 H 20 108/67 91 05/23/25 04:15 100 H 18 122/70 92 05/23/25 04:10 98 H 16 119/66 94 05/23/25 04:08 36.8 C 101 H 18 132/75 94 05/23/25 03:55 103 H 18 108/71 92 05/23/25 03:53 36.7 C 101 H 17 90/65 L 93 05/23/25 03:50 36.9 C 102 H 17 90/65 L 92 05/23/25 03:41 103 H 16 119/68 92 05/23/25 03:20 104 H 16 93/61 L 95 05/23/25 03:15 103 H 16 112/68 94 05/23/25 03:12 94 05/23/25 03:10 105 H 16 94/70 L 93 05/23/25 03:10 36.9 C 110 H 18 88/62 L 94 05/23/25 03:08 118 H O2 Del Method 05/23/25 04:35 Room Air 05/23/25 04:30 Room Air 05/23/25 04:25 Room Air 05/23/25 04:23 05/23/25 04:20 Room Air 05/23/25 04:15 Room Air 05/23/25 04:10 Room Air 05/23/25 04:08 05/23/25 03:55 Room Air 05/23/25 03:53 05/23/25 03:50 05/23/25 03:41 Room Air 05/23/25 03:20 Room Air 05/23/25 03:15 Room Air 05/23/25 03:12 Room Air 05/23/25 03:10 Room Air 05/23/25 03:10 Room Air 05/23/25 03:08 Laboratory Results Abnormal lab results 05/23/25 05/23/25 05/23/25 Range/Units 03:09 03:11 03:15 WBC 12.04 H (4.8-10.8) K/ul RBC 3.48 L (4.70-6.10) M/uL Hgb 10.4 L (14.0-18.0) g/dl POC Hgb 9.9 L (14.0-18.0) g/dl Hct 30.5 L (42.0-52.0) % POC Hct 29 L (42-52) % Neut # (Auto) 8.46 H (1.40-6.50) K/uL [place] # (Auto) 1.14 H (0.11-0.59) K/uL POC Total CO2 20 L (24-31) mmol/L Anion Gap 15 H (3-11) POC BUN 50 H (7-18) mg/dl BUN 55 H D (6-23) mg/dl BUN/Creatinine Ratio 52.9 H (10-20) Glucose 218 H (70-99(Fasting)) mg/dl POC Glucose (other) 207 H (70-99) mg/dl Total Protein 5.9 L (6.0-8.3) gm/dl Albumin 3.3 L (3.4-5.0) gm/dl Crossmatch See Detail Diagnostic Findings Chest X-Ray 05/23/25 03:22 EXAM: XR chest 1V portable CLINICAL HISTORY: abnormal breath sounds TECHNIQUE: Radiograph of chest was acquired. COMPARISON: No FINDINGS: The lungs are clear and well-expanded with no pulmonary infiltrate or pleural effusion. The cardiomediastinal silhouette is within normal limits. No acute osseous abnormality. IMPRESSION: 1. No acute cardiopulmonary disease. Electronically signed by Roque Betts 05-23-2025 04:39 AM Medications Administered Pantoprazole Sodium 40 mg/ (Dextrose) 100 mls @ 20 mls/hr IV Q5H LESLEE Stop: 06/22/25 03:29 Last Admin: 05/23/25 04:00 Dose: 8 mg/hr, 20 mls/hr Documented By: AN Octreotide Acetate 500 mcg/ (Sodium Chloride) 100.5 mls @ 10.05 mls/hr IV .Q10H LESLEE Stop: 06/22/25 03:14 Last Admin: 05/23/25 03:58 Dose: 50 mcg/hr, 10.1 mls/hr Documented By: AN Discontinued Medications Fentanyl Citrate (Fentanyl Citrate Pf 100 Mcg/2 Ml Vial) 25 mcg IV NOW STA Stop: 05/23/25 03:24 Last Admin: 05/23/25 03:28 Dose: 25 mcg Documented By: AN Sodium Chloride (Nss) 1,000 mls @ 999 mls/hr IV .Q1H1M LESLEE Stop: 05/23/25 04:15 Last Infusion: 05/23/25 04:17 Dose: Infused Documented By: Admin: 05/23/25 03:16 Dose: 999 mls/hr Documented By: AN Pantoprazole Sodium 80 mg/ (Dextrose) 120 mls @ 480 mls/hr IV NOW ONE Stop: 05/23/25 03:22 Last Infusion: 05/23/25 04:12 Dose: Infused Documented By: Admin: 05/23/25 03:44 Dose: 480 mls/hr Documented By: AN Octreotide Acetate 100 mcg/ (Syringe) 10 mls @ 3 mls/min IV NOW STA Stop: 05/23/25 03:11 Last Admin: 05/23/25 03:58 Dose: 3 mls/min Documented By: AN Promethazine HCl (Phenergan) 12.5 mg in 50.5 mls @ 202 mls/hr IV NOW STA Stop: 05/23/25 04:22 Last Infusion: 05/23/25 04:27 Dose: Infused Documented By: Admin: 05/23/25 04:12 Dose: 202 mls/hr Documented By: AN Miscellaneous (Stat Iv/Im) 1 each N/A NOW STA Stop: 05/23/25 03:09 Last Admin: 05/23/25 03:44 Dose: 1 each Documented By: AN Ondansetron HCl (Ondansetron Inj 2 Mg/Ml 2 Ml Vial) 4 mg IV NOW STA Stop: 05/23/25 03:23 Last Admin: 05/23/25 03:28 Dose: 4 mg Documented By: AN Pantoprazole Sodium (Pantoprazole Bolus/Drip) 1 each IV NOW STA Stop: 05/23/25 03:09 Last Admin: 08/03/25 03:44 Dose: 1 each Documented By: AN ECG Additional Comments: Sinus tachycardiawith occasionalPremature ventricular complexes Incomplete right bundle branch block Inferior infarct, age undetermined Abnormal ECG When compared with ECG [id number] 23:18, Premature ventricular complexesare nowPresent Vent. ratehas increasedby 49bpm Questionable change inQRS duration Inferior infarctis nowPresent Coding Level of Care Code 59853 CRITICAL CARE 1ST 30-74M Diagnoses GI bleed K92.2 Acute blood loss anemia D62 BELKIS (acute kidney injury) N17.9 DMII (diabetes mellitus, type 2) E11.9
--- NOTE | 2025-05-23 05:17 | Billing Data ---
Date of Service May 23, 2025 Coding Level of Care Code 91983 CRITICAL CARE
[2025-05-23] MEDS ORDERED: GLUCOSE 40% GEL 15 GM TUBE PO PRN (05:20)
[2025-05-23] MEDS ORDERED: CARBOHYDRATES FOR HYPOGLYCEMIA PO PRN (05:20)
[2025-05-23] MEDS ORDERED: GLUCAGON FOR INJ 1 MG VIAL SQ PRN (05:20)
[2025-05-23] MEDS ORDERED: GLUCOSE 10 TAB/TUBE PO PRN (05:20)
[2025-05-23] MEDS ORDERED: DEXTROSE 50% 50 ML SYRINGE IV PRN (05:20)
[2025-05-23] MEDS ORDERED: PHARMACY GLYCEMIC MGMT CONSULT PRN (05:20)
[2025-05-23] MEDS ORDERED: ONDANSETRON INJ 2 MG/ML 2 ML VIAL IV PRN ×2 (05:20→07:37)
[2025-05-23] MEDS ORDERED: METOCLOPRAMIDE HCL INJ 5 MG/ML 2 ML VIAL IV PRN (05:33)
[2025-05-23] MEDS: cefTRIAXone SODIUM 2,000 MG/50 ML BAG IV SCH (05:50)
[2025-05-23] MEDS: diazePAM 5 MG/ML 10ML VIAL IV STA (06:28)
[2025-05-23] MEDS: ICU ELECTROLYTE REPLACEMENT PROTOCOL SCH (06:39)
[2025-05-23] MEDS: INSULIN ASPART PER UNIT CHARGE SC SCH ×2 (06:47→16:50)
--- NOTE | 2025-05-23 07:07 | Gastrointestinal Consultation ---
Date of Consultation May 23, 2025 Assessment & Plan (1) Hematemesis: Differential diagnosis includes esophageal varices, portal gastropathy, peptic ulcer disease Yasmin-Mc tear less likely neoplastic process. Patient with known 2+ varices 2 months ago. Will proceed with urgent endoscopy this morning. Continue IV PPI octreotide and empiric antibiotics. (2) Cirrhosis: History of Present Illness Reason for Consultation: GI bleed Attending Physician: Dre Olivera DO History of Present Illness Patient presented with coffee-ground emesis occurring early this morning. Hemoglobin 10.4 lower than baseline. Patient has a history of alcoholic cirrhosis presently abstinent. Screening endoscopy back in February showed 2+ eso phageal varices and portal gastropathy. No prior history of GI bleeding in the past. Screening abdominal ultrasound last week showed cirrhosis no ascites mild splenomegaly. Denies any NSAID use. No bright red blood per rectum and no melena. Complaining of some generalized crampy abdominal pain. Chest x-ray negative. Allergies Allergy/AdvReac Type Severity Reaction Status Date / Time bee venom protein (honey bee) Allergy Severe ANAPHYLAXIS Verified 03/12/25 10:05 cat dander Allergy Unknown Itchy/Watery Verified 03/12/25 10:05 Eyes, Itchy throat tamsulosin Allergy Unknown Hives Verified 03/12/25 10:05 Home Medications Medication Instructions Recorded Confirmed Type epinephrine 0.3 mg/0.3 mL 0.3 mg IM DIRECTED PRN Allergic 03/21/19 05/23/25 History injection, auto-injector (EpiPen) Reaction buspirone 30 mg tablet 30 mg PO BID 03/08/21 05/23/25 History rosuvastatin 40 mg tablet 40 mg PO QPM 04/18/21 05/23/25 History hydroxyzine HCl 50 mg tablet 50 mg PO TID PRN Anxiety 08/17/21 05/23/25 History desvenlafaxine succinate 100 mg 100 mg PO QAM 05/30/23 05/23/25 History tablet,extended release 24 hr melatonin 10 mg tablet 10 mg PO HS 04/05/24 05/23/25 History empagliflozin 25 mg tablet 25 mg PO QAM #30 tabs 01/26/25 05/23/25 Rx (Jardiance) blood sugar diagnostic (OneTouch #100 ea 01/29/25 03/12/25 Rx Verio test strips) lancets 33 gauge (OneTouch Delica #100 ea 01/29/25 03/12/25 Rx Plus Lancet) ropinirole 0.5 mg tablet 0.5 mg PO QPM 90 days #90 tabs 02/01/25 05/23/25 Rx icosapent ethyl 1 gram capsule 2 g (2 x 1 gram) PO BID #360 caps 02/17/25 05/23/25 Rx (Vascepa) metformin 1,000 mg tablet 1,000 mg PO BID #180 tabs 03/09/25 05/23/25 Rx carvedilol 3.125 mg tablet 3.125 mg PO BID #180 tabs 05/13/25 05/23/25 Rx mirtazapine 30 mg tablet 45 mg PO HS 05/13/25 05/13/25 History sitagliptin phosphate 50 mg tablet 50 mg PO DAILY #30 tabs 05/13/25 05/23/25 Rx (Januvia) clonidine HCl 0.1 mg tablet 0.1 mg PO TID PRN Anxiety 05/23/25 05/23/25 History Patient History Medical History H/O traumatic subdural hematoma History of colon polyps x3 in remote hx , since clear. History of brachytherapy Anxiety medication and counseling for. History of prostate cancer (2015) hx brachytherapy and external beam radiation. History of TIA (transient ischemic attack) x2 in past when heavily drinking approx 2012/no residuals. H/O traumatic subdural hematoma very small per pt approx 2014 History of seizure approx 2014 x2 "alcohol related" - continues to follow Dr. Hooks yearly. Restless leg syndrome Dr Hooks yearly. 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 unknown if current. Stenosis of right carotid artery <50 %. yearly checks. Dr. Loera/[facility]. History of diverticulitis summer 2023 last flare & hospitalized [facility]. was on clopidogrel at that time and was d/c'd since this stay. History of diabetic ulcer of foot Diabetes medication and counseling for. Panic attacks controlled with medication. Depression Prostate cancer (07/30/16) Surgical History History of endoscopy upper History of urologic surgery to look in bladder when prostate ca tx completed. History of colonoscopy History of carotid endarterectomy left History of cholecystectomy ~2000 History of repair of ACL left Family History Father , Mother age 56 of colon cancer Colorectal cancer 54 yrs old when Mother , the age 78 of a blood clot Clotting disorder Dementia Daughter Family history of reaction to anesthesia nausea Other Cancer Social History Smoking Status: Current every day smoker Tobacco Type: Cigars Age Started Using Tobacco: 43; packs per day: 0.25; Cigarettes Per Day: 1-2 cigars/day; Second Hand Exposure: No; Do You Dip or Chew Tobacco: No; Hx Alcohol Use: No Hx Substance Use: No Preferred Language: Swedish Communication Ability: Effective Visual Impairment: No Limitations Hearing Ability: Normal Train Controller Required: No Beliefs That Will Affect Care: None marital status: Current Living Situation: Spouse current occupational status: retired 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 [employer] Feels Safe at Home: Yes Diet: regular caffeine: Yes during the past year weight has: remained stable Dental Care, Regularly: No Physical Activity Frequency: Daily Physical Activity Frequency Comment: walks daily if he can Seatbelt Use: always Sunscreen Use: Yes Assistive Devices: Glasses Review of Systems Review of Systems: No fever No chills No SOB No CP GI as per HPI Physical Exam Physical Exam: Eyes; anicteric HENT No masses Chest clear to A Cor S1, S2 physiologic Abd: softer nontender no masses no rebound no guarding Ext no edema Results & Data Vital Signs (Past 12 Hours) Vital Signs Temp Pulse Pulse Resp BP BP Pulse Ox 05/23/25 06:45 36.5 C 96 H 22 108/64 92 05/23/25 06:15 97 H 19 113/65 96 05/23/25 06:14 93 H 19 121/72 95 05/23/25 06:00 36.6 C 93 H 19 121/72 95 05/23/25 05:44 36.6 C 98 H 16 94/59 L 96 05/23/25 05:10 36.6 C 96 H 21 97/64 L 93 08/03/25 04:53 36.5 C 100 H 22 107/52 L 05/23/25 04:35 99 H 18 110/63 90 05/23/25 04:30 100 H 18 107/62 91 05/23/25 04:25 100 H 18 111/64 91 05/23/25 04:23 36.9 C 99 H 18 94/66 L 92 05/23/25 04:20 102 H 20 108/67 91 05/23/25 04:15 100 H 18 122/70 92 05/23/25 04:10 98 H 16 119/66 94 05/23/25 04:08 36.8 C 101 H 18 132/75 94 05/23/25 03:55 103 H 18 108/71 92 05/23/25 03:53 36.7 C 101 H 17 90/65 L 93 05/23/25 03:50 36.9 C 102 H 17 90/65 L 92 05/23/25 03:41 103 H 16 119/68 92 05/23/25 03:20 104 H 16 93/61 L 95 05/23/25 03:15 103 H 16 112/68 94 05/23/25 03:12 94 05/23/25 03:10 105 H 16 94/70 L 93 05/23/25 03:10 36.9 C 110 H 18 88/62 L 94 05/23/25 03:08 118 H O2 Del Method O2 Flow Rate 05/23/25 06:45 05/23/25 06:15 2 05/23/25 06:14 05/23/25 06:00 05/23/25 05:44 2 05/23/25 05:10 2 05/23/25 04:53 05/23/25 04:35 Room Air 05/23/25 04:30 Room Air 05/23/25 04:25 Room Air 05/23/25 04:23 05/23/25 04:20 Room Air 05/23/25 04:15 Room Air 05/23/25 04:10 Room Air 05/23/25 04:08 05/23/25 03:55 Room Air 05/23/25 03:53 05/23/25 03:50 05/23/25 03:41 Room Air 05/23/25 03:20 Room Air 05/23/25 03:15 Room Air 05/23/25 03:12 Room Air 05/23/25 03:10 Room Air 05/23/25 03:10 Room Air 05/23/25 03:08 Laboratory Results Laboratory Results - last 48 hr 05/23/25 05/23/25 05/23/25 03:09 03:11 03:15 WBC 12.04 H RBC 3.48 L Hgb 10.4 L POC Hgb 9.9 L Hct 30.5 L POC Hct 29 L MCV 87.6 MCH 29.9 MCHC 34.1 RDW Std Deviation 44.8 RDW Coeff of Antonio 14.2 Plt Count 149 MPV 11.0 Immature Gran % (Auto) 0.9 Neut % (Auto) 70.2 Lymph % (Auto) 17.4 [place] % (Auto) 9.5 Eos % (Auto) 1.4 Baso % (Auto) 0.6 Neut # (Auto) 8.46 H Lymph # (Auto) 2.09 [place] # (Auto) 1.14 H Eos # (Auto) 0.17 Baso # (Auto) 0.07 Immature Gran # (Auto) 0.11 PT 12.0 INR 1.1 APTT 24 PTT Ratio 0.9 POC Sodium 137 Sodium 137 POC Potassium 4.4 Potassium 4.3 POC Chloride 103 Chloride 101 Carbon Dioxide 21 POC Total CO2 20 L Anion Gap 15 H POC Anion Gap 20.0 POC BUN 50 H BUN 55 H D Creatinine 1.04 POC Creatinine 1.1 Est Cr Clr Drug Dosing 91.9 eGFR 79.19 BUN/Creatinine Ratio 52.9 H Glucose 218 H POC Glucose POC Glucose (other) 207 H Calcium 8.7 POC Ioniz Calcium Kathy 1.15 Total Bilirubin 0.6 AST 22 ALT 21 Alkaline Phosphatase 42 Total Protein 5.9 L Albumin 3.3 L Globulin 2.6 Albumin/Globulin Ratio 1.3 Blood Type O Positive Antibody Screen NEGATIVE Crossmatch See Detail 05/23/25 06:44 WBC RBC Hgb POC Hgb Hct POC Hct MCV MCH MCHC RDW Std Deviation RDW Coeff of Antonio Plt Count MPV Immature Gran % (Auto) Neut % (Auto) Lymph % (Auto) [place] % (Auto) Eos % (Auto) Baso % (Auto) Neut # (Auto) Lymph # (Auto) [place] # (Auto) Eos # (Auto) Baso # (Auto) Immature Gran # (Auto) PT INR APTT PTT Ratio POC Sodium Sodium POC Potassium Potassium POC Chloride Chloride Carbon Dioxide POC Total CO2 Anion Gap POC Anion Gap POC BUN BUN Creatinine POC Creatinine Est Cr Clr Drug Dosing eGFR BUN/Creatinine Ratio Glucose POC Glucose 279 H POC Glucose (other) Calcium POC Ioniz Calcium Kathy Total Bilirubin AST ALT Alkaline Phosphatase Total Protein Albumin Globulin Albumin/Globulin Ratio Blood Type Antibody Screen Crossmatch Diagnostic Findings Chest X-Ray 05/23/25 03:22 EXAM: XR chest 1V portable CLINICAL HISTORY: abnormal breath sounds TECHNIQUE: Radiograph of chest was acquired. COMPARISON: No FINDINGS: The lungs are clear and well-expanded with no pulmonary infiltrate or pleural effusion. The cardiomediastinal silhouette is within normal limits. No acute osseous abnormality. IMPRESSION: 1. No acute cardiopulmonary disease. Electronically signed by Roque Betts 05-23-2025 04:39 AM PG Care Time/CCT Total # of Minutes Spent Total Time Spent with Patient: Total time spent is greater than 50% in coordination of care (as documented) at patient's floor/unit and/or counseling patient: Coding Level of Care Code 95665 INT INP/OBS CARE 3/75MIN Diagnoses Hematemesis K92.0 Cirrhosis K74.60
--- NOTE | 2025-05-23 07:22 | Anesthesiology Consultation ---
Date of Service May 23, 2025 Assessment & Plan (1) Upper GI bleed: Chart Review Chart Review: Acceptable Risk for Surgery Consults Requested none ASA [id number] Proposed Anesthesia Anesthesia Type: General (RSI) Risk / Benefits Reviewed With: PT / POA / Parent / Guardian, Accepts Plan and Informed Consent Obtained History Surgery Operation Date: 05/23/25 09:00 Proposed Procedures p Esophagogastroduodenoscopy - Pal Castaneda MD Height/Weight Height: 6 ft 2 in Weight: 105.9 kg Allergies Allergy/AdvReac Type Severity Reaction Status Date / Time bee venom protein (honey bee) Allergy Severe ANAPHYLAXIS Verified 03/12/25 10:05 cat dander Allergy Unknown Itchy/Watery Verified 03/12/25 10:05 Eyes, Itchy throat tamsulosin Allergy Unknown Hives Verified 03/12/25 10:05 Medications Home Medications Medication Instructions Recorded Confirmed Last Taken epinephrine 0.3 mg/0.3 mL 0.3 mg IM DIRECTED PRN Allergic 03/21/19 05/23/25 Unknown injection, auto-injector (EpiPen) Reaction buspirone 30 mg tablet 30 mg PO BID 03/08/21 05/23/25 03/03/25 rosuvastatin 40 mg tablet 40 mg PO QPM 04/18/21 05/23/25 03/02/25 hydroxyzine HCl 50 mg tablet 50 mg PO TID PRN Anxiety 08/17/21 05/23/25 03/04/25 07:00 desvenlafaxine succinate 100 mg 100 mg PO QAM 05/30/23 05/23/25 03/04/25 07:00 tablet,extended release 24 hr melatonin 10 mg tablet 10 mg PO HS 04/05/24 05/23/25 03/03/25 empagliflozin 25 mg tablet 25 mg PO QAM #30 tabs 01/26/25 05/23/25 03/03/25 (Jardiance) blood sugar diagnostic (OneTouch #100 ea 01/29/25 03/12/25 Unknown Verio test strips) lancets 33 gauge (OneTouch Delica #100 ea 01/29/25 03/12/25 Unknown Plus Lancet) ropinirole 0.5 mg tablet 0.5 mg PO QPM 90 days #90 tabs 02/01/25 05/23/25 03/02/25 icosapent ethyl 1 gram capsule 2 g (2 x 1 gram) PO BID #360 caps 02/17/25 05/23/25 03/04/25 07:00 (Vascepa) metformin 1,000 mg tablet 1,000 mg PO BID #180 tabs 03/09/25 05/23/25 Unknown carvedilol 3.125 mg tablet 3.125 mg PO BID #180 tabs 05/13/25 05/23/25 Unknown mirtazapine 30 mg tablet 45 mg PO HS 05/13/25 05/13/25 Unknown sitagliptin phosphate 50 mg tablet 50 mg PO DAILY #30 tabs 05/13/25 05/23/25 Unknown (Januvia) clonidine HCl 0.1 mg tablet 0.1 mg PO TID PRN Anxiety 05/23/25 05/23/25 Unknown Active Medications Generic Name Dose Route Start Last Admin Trade Name Freq PRN Reason Stop Dose Admin Pantoprazole Sodium 40 mg/ 100 mls @ 20 mls/hr 05/23/25 03:30 05/23/25 04:00 Dextrose IV 06/22/25 03:29 8 mg/hr Q5H LESLEE 20 mls/hr Administration 8 MG/HR Octreotide Acetate 500 mcg/ 100.5 mls @ 10.05 mls/hr 05/23/25 03:15 05/23/25 03:58 Sodium Chloride IV 06/22/25 03:14 50 mcg/hr .Q10H LESLEE 10.1 mls/hr Administration 50 MCG/HR Ceftriaxone Sodium 2,000 mg in 50 mls @ 100 mls/hr 05/23/25 04:30 05/23/25 06:38 Rocephin IV 06/02/25 04:29 Infused Q24H LESLEE Infusion Insulin Aspart 0 units 05/23/25 06:30 05/23/25 06:47 Insulin Aspart Per Unit Charge SC 06/22/25 06:29 5 units Q6 LESLEE Administration Miscellaneous 1 each 05/23/25 06:00 05/23/25 06:39 Icu Electrolyte Replacement Protocol N/A 05/30/25 05:59 1 each BID@06,18 LESLEE Administration Protocol NPO Date Last Intake of Fluids: 05/22/25 Time Last Intake of Fluids: 20:00 Date Last Intake of Solids: 05/22/25 Time Last Intake of Solids: 16:00 Past Medical History Medical History (Updated 05/23/25 @ 07:18 by Denisse Ko DO) Hypertension Hyperlipidemia Major depression, recurrent Anxiety Portal hypertension H/O traumatic subdural hematoma History of colon polyps x3 in remote hx , since clear. History of brachytherapy Anxiety medication and counseling for. History of prostate cancer (2015) hx brachytherapy and external beam radiation. History of TIA (transient ischemic attack) x2 in past when heavily drinking approx 2012/no residuals. H/O traumatic subdural hematoma very small per pt approx 2014 History of seizure approx 2014 x2 "alcohol related" - continues to follow Dr. Hooks yearly. Restless leg syndrome Dr Hooks yearly. 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 unknown if current. Stenosis of right carotid artery <50 %. yearly checks. Dr. Loera/[facility]. History of diverticulitis summer 2023 last flare & hospitalized [facility]. was on clopidogrel at that time and was d/c'd since this stay. History of diabetic ulcer of foot Diabetes medication and counseling for. Panic attacks controlled with medication. Depression Prostate cancer (07/30/16) Exercise / Class Metabolic Activity II 4-5 Yardwork/Stairs/Walk up hill Past Family History Family History Father , Mother age 56 of colon cancer Colorectal cancer 54 yrs old when Mother , the age 78 of a blood clot Clotting disorder Dementia Daughter Family history of reaction to anesthesia nausea Other Cancer Past Surgical History Surgical History History of endoscopy upper History of urologic surgery to look in bladder when prostate ca tx completed. History of colonoscopy History of carotid endarterectomy left History of cholecystectomy ~2000 History of repair of ACL left Past Anesthesia History No Hx of Anesthesia Complications and No Family Hx of Anesthesia Complications History of PONV No Hx of PONV and No Hx of Motion Sickness Social History Smoking Status: Current every day smoker tobacco type: cigars Smoking cigarettes per day: 1-2 cigars/day Do You Dip or Chew Tobacco: No Hx Alcohol Use: No Alcohol type: hard liquor alcohol intake frequency: 3 or more drinks per day Hx Substance Use: No substance use type: does not use Physical Exam Vital Signs Last Vital Signs Temp 36.5 C 05/23/25 06:45 Pulse 96 H 05/23/25 06:45 Resp 22 05/23/25 06:45 BP 108/64 05/23/25 06:45 Pulse Ox 92 05/23/25 06:45 O2 Del Method Room Air 05/23/25 04:35 O2 Flow Rate 2 05/23/25 06:15 Constitutional + obese ENMT Mouth: no TMJ abnormality Thyromental Distance: > or= 3.5 Finger Breadths Mallampati Class: III blood staining on lips/gums. Pt denies hematemesis since 4am today Neck normal visual inspection and trachea midline; neck extension not limited Respiratory normal respiratory effort Auscultation: lungs clear to auscultation bilaterally Cardiovascular Rate/Rhythm: regular rate and regular rhythm Heart Sounds: no murmur Musculoskeletal Spine: normal cervical ROM Extremities: full ROM of extremities Neurologic moves all extremities Psychiatric Orientation: alert and oriented x 3 Testing Laboratory Results 05/23/25 03:09 05/23/25 03:09 PT 12.0 Seconds (9.0-12.0) 05/23/25 03:09 INR 1.1 (0.9-1.1) 05/23/25 03:09 APTT 24 Seconds (21-31) 05/23/25 03:09 Blood Type O Positive 05/23/25 03:15 Antibody Screen NEGATIVE 05/23/25 03:15 05/23/25 05/23/25 06:44 03:11 POC Glucose 279 H POC Glucose (other) 207 H Electrocardiogram Date: 05/23/25 Findings: + RBBB (incomplete), + ST @ (110bpm) and + CA (inf age indetermined) Echocardiogram 03/26/20 results noted no sig valv dz, [id number]^ no RWMA no LVH Other Testing 2u prbc finishing infusion
--- NOTE | 2025-05-23 07:29 | Electrocardiogram Report ---
Test Reason : Blood Pressure : */* mmHG Vent. Rate : 110 BPM Atrial Rate : 110 BPM P-R Int : 144 ms QRS Dur : 114 ms QT Int : 370 ms P-R-T Axes : -16 -15 -16 degrees QTcB Int : 500 ms Sinus tachycardia with occasional Premature ventricular complexes Incomplete right bundle branch block possible Inferior infarct , age undetermined Abnormal ECG When compared with ECG of 17-Aug-2021 23:18, Premature ventricular complexes are now Present Vent. rate has increased by 49 bpm Confirmed by Timothy Rojas ([id number]) on 05/23/2025 7:29:14 AM Referred By: REFERRED SELF Confirmed By: Tiomthy Rojas
[2025-05-23] MEDS ORDERED: ALBUTEROL 0.083% NEBU SOLN 3 ML VIAL INH PRN (07:37)
[2025-05-23] MEDS ORDERED: ATROPINE SULFATE 0.1 MG/ML 10ML SYR IV PRN (07:37)
[2025-05-23] MEDS ORDERED: PROPOFOL IV EMULSION 10 MG/ML 20 ML VIAL IV ONE (08:19)
[2025-05-23] MEDS ORDERED: SUCCINYLCHOLINE CHLORIDE 20 MG/ML 10 ML VIAL IV ONE (08:19)
[2025-05-23] MEDS ORDERED: LIDOCAINE 2% 2 ML VIAL/AMP(20MG/ML) INFIL ONE (08:19)
[2025-05-23] MEDS ORDERED: ONDANSETRON INJ 2 MG/ML 2 ML VIAL ONE (08:19)
[2025-05-23] MEDS: LANTUS PER UNIT CHARGE SC SCH (08:25)
--- NOTE | 2025-05-23 10:03 | Hospitalist Progress Note ---
Date of Service May 23, 2025 Assessment & Plan (1) Hematemesis: (2) Acute blood loss anemia: (3) Upper GI bleed: (4) Esophageal varices determined by endoscopy: (5) Liver cirrhosis: Plan in summary this is a 64-year-old male who presented with acute onset hematemesis and coffee-ground emesis subsequently admitted for stabilization and further evaluation by gastroenterology. #Acute blood loss anemia secondary to upper gastrointestinal hemorrhage // Hepatic cirrhosis secondary to alcohol use disorder in sustained remission Patient presented with sudden onset hematemesis and abdominal pain; pertinent risk factors include alcohol use disorder in sustained remission with established [place] cirrhosis with previously visualized grade 3 varices; initial hemoglobin of 10.4 with a normocytic anemia; initial BUN was 13 which increased to 50, without an increase in the patient's creatinine, consistent with reabsorption in the abdominal tract in the setting of a upper gastrointestinal hemorrhage; anticipated to undergo EGD on 05/23 Continue pantoprazole 40 mg IV every 12 hours Continue octreotide 50 mcg per hour gtt. Continue ceftriaxone gram gram IV daily Currently being transfused 2 units PRBC with 2 units on hold The patient is not established on any antiplatelets in the outpatient setting nor are they significantly uremic enough to justify need for DDAVP at this time Gastroenterology and craft recruiter consulted #Type II diabetes mellitus with hyperglycemia and peripheral neuropathy Most recent hemoglobin A1c of 9.4% obtained 04/2025; glycemic target of less than 180 for all checks considering the current critical illness; pharmacy consulted for assistance with glucose management Admission and Anticipated Discharge Date Admission Date: May 23, 2025 Anticipated date of discharge: 05/26/25 Subjective Mr. Hammonds is a 64-year-old male whose active medical conditions include hepatic cirrhosis in the setting of alcohol use disorder in sustained remission, complicated by splenomegaly in addition to grade 2 esophageal varices among other chronic medical conditions who presented to [facility] on 05/23 with persistent hematemesis subsequently admitted for further intensive care. This morning the patient is fatigued, though feeling overall well compared to their initial presentation; they endorse some abdominal distention compared to their usual baseline, though without any specific abdominal discomfort at this time. There have been no additional episodes of hematemesis or emesis since the patient's admission. They are anticipated to undergo EGD on the morning of 05/23. Review of Systems Review of Systems: Constitutional: endorses generalized fatigue; denies fevers, chills Cardiovascular: denies angina, palpitations, syncope, peripheral edema, orthopnea Pulmonary: denies cough, dyspnea on exertion, pleuritic chest pain Gastrointestinal: endorses abdominal distention, increased frequency of eructation; denies nausea, additional episodes of hematemesis, dysphagia, regurgitation, constipation, diarrhea, melanotic stool, hematochezia, jaundice Genitourinary: denies dysuria, hematuria, urinary incontinence Neurologic: denies focal weakness, paresthesias or numbness Musculoskeletal: denies arthralgias, progressive weakness, recent falls Integumentary: denies new or developing rashes or lesions Physical Exam Physical Exam: General: Adult male in mild distress Vital Signs: reviewed HEENT: normocephalic, atraumatic; pupils equally reactive to light, extraocular motions intact; bilateral conjunctival pallor; mucous membranes dry Neck: No palpable lymphadenopathy Pulmonary: symmetric chest wall excursion; CTAB Cardiovascular: Regular rate and rhythm with no murmurs, rubs, or gallops; S1 and S2 normal; bilateral radial and posterior tibial pulses 2+; trace bilateral lower extremity edema distal of the mid leg; capillary refill of the upper and lower extremity nailbeds approximately 3 to 4 seconds Gastrointestinal: protuberant, somewhat soft; no tenderness to percussion which is of normal resonance throughout the abdomen; tenderness to deep palpation in all 4 quadrants especially in the periumbilical region; no acute peritoneal findings Neurologic: CN II through XII grossly intact Skin: pale Results & Data Results & Data Vital Signs (Past 12 Hours) Vital Signs Temp Pulse Pulse Resp BP BP Pulse Ox 05/23/25 09:03 05/23/25 08:12 05/23/25 08:08 93 H 05/23/25 08:00 05/23/25 07:51 37 C 93 H 18 114/64 96 05/23/25 07:35 114/64 05/23/25 07:35 114/64 05/23/25 07:35 114/64 05/23/25 07:35 114/64 05/23/25 07:33 91 H 17 94 05/23/25 07:30 92 H 19 93 05/23/25 07:05 90/50 L 05/23/25 07:03 85/45 L 05/23/25 06:45 36.5 C 96 H 22 108/64 92 05/23/25 06:15 97 H 19 113/65 96 05/23/25 06:14 93 H 19 121/72 95 05/23/25 06:00 96 H 05/23/25 06:00 36.6 C 93 H 19 121/72 95 05/23/25 05:44 36.6 C 98 H 16 94/59 L 96 05/23/25 05:10 36.6 C 96 H 21 97/64 L 93 05/23/25 04:53 36.5 C 100 H 22 107/52 L 05/23/25 04:35 99 H 18 110/63 90 05/23/25 04:30 100 H 18 107/62 91 05/23/25 04:25 100 H 18 111/64 91 05/23/25 04:23 36.9 C 99 H 18 94/66 L 92 05/23/25 04:20 102 H 20 108/67 91 05/23/25 04:15 100 H 18 122/70 92 05/23/25 04:10 98 H 16 119/66 94 05/23/25 04:08 36.8 C 101 H 18 132/75 94 05/23/25 03:55 103 H 18 108/71 92 05/23/25 03:53 36.7 C 101 H 17 90/65 L 93 05/23/25 03:50 36.9 C 102 H 17 90/65 L 92 05/23/25 03:41 103 H 16 119/68 92 05/23/25 03:20 104 H 16 93/61 L 95 05/23/25 03:15 103 H 16 112/68 94 05/23/25 03:12 94 05/23/25 03:10 105 H 16 94/70 L 93 05/23/25 03:10 36.9 C 110 H 18 88/62 L 94 05/23/25 03:08 118 H Pulse Ox O2 Del Method O2 Del Method O2 Flow Rate 05/23/25 09:03 Room Air 05/23/25 08:12 96 Room Air 05/23/25 08:08 05/23/25 08:00 Room Air 05/23/25 07:51 05/23/25 07:35 05/23/25 07:35 05/23/25 07:35 05/23/25 07:35 05/23/25 07:33 05/23/25 07:30 05/23/25 07:05 05/23/25 07:03 05/23/25 06:45 05/23/25 06:15 2 05/23/25 06:14 05/23/25 06:00 05/23/25 06:00 05/23/25 05:44 2 05/23/25 05:10 2 05/23/25 04:53 05/23/25 04:35 Room Air 05/23/25 04:30 Room Air 05/23/25 04:25 Room Air 05/23/25 04:23 05/23/25 04:20 Room Air 05/23/25 04:15 Room Air 05/23/25 04:10 Room Air 05/23/25 04:08 05/23/25 03:55 Room Air 05/23/25 03:53 05/23/25 03:50 05/23/25 03:41 Room Air 05/23/25 03:20 Room Air 05/23/25 03:15 Room Air 05/23/25 03:12 Room Air 05/23/25 03:10 Room Air 05/23/25 03:10 Room Air 05/23/25 03:08 PG Care Time/CCT Total # of Minutes Spent Total Time Spent with Patient: Total time spent is greater than 50% in coordination of care (as documented) at patient's floor/unit and/or counseling patient: Coding Level of Care Code 96231 SUB INP/OBS CARE 3/50MIN Medical Decision Making High Complexity Diagnoses Hematemesis with nausea K92.0 Nausea presence: with nausea Acute blood loss anemia D62 Upper GI bleed K92.2 Esophageal varices determined by endoscopy I85.00 Alcoholic cirrhosis of liver without ascites K70.30 Hepatic cirrhosis type: alcoholic cirrhosis Ascites presence: without ascites (1) Hematemesis Nausea presence: with nausea Qualified Code(s): K92.0 - Hematemesis (5) Liver cirrhosis Hepatic cirrhosis type: alcoholic cirrhosis Ascites presence: without ascites Qualified Code(s): K70.30 - Alcoholic cirrhosis of liver without ascites
[2025-05-23] MEDS ORDERED: ROCURONIUM BROMIDE 10 MG/ML 5 ML VIAL IV ONE (10:25)
[2025-05-23] MEDS ORDERED: LABETALOL HCL IV 5 MG/ML 20ML IV ONE (10:37)
[2025-05-23] MEDS ORDERED: DEXAMETHASONE SOD INJ 4 MG/ML VIAL ONE (10:41)
--- NOTE | 2025-05-23 10:53 | GI REPORT ---
[facility] Patient: FRED HOGAN : 1960 Sex at : Male Age: 64 Years Procedure: Upper GI endoscopy Date: 05/23/2025 Attending Physician: Pal Castaneda MD Referring MD: Dre Olivera DO Indications: - Suspected upper gastrointestinal bleeding Medications: - Monitored Anesthesia Care Complications: - No immediate complications. Estimated Blood Loss: - Estimated blood loss was minimal. Procedure: - Prior to the procedure, a History and Physical was performed, and patient medications and allergies were reviewed. The patient's tolerance of previous anesthesia was also reviewed. The risks and benefits of the procedure and the sedation options and risks were discussed with the patient. All questions were answered, and informed consent was obtained. [Anticoagulant Agents] [Days Prior to Procedure]. [ASA Grade]. After reviewing the risks and benefits, the patient was deemed in satisfactory condition to undergo the procedure. - The egd scope was introduced through the mouth and advanced to the second part of the duodenum. - The upper GI endoscopy was accomplished without difficulty. - The patient tolerated the procedure well. Findings: - Grade II varices with red ian signs were found in the lower third of the esophagus and in the middle third of the esophagus. Six bands were successfully placed. There was no bleeding at the end of the maneuver. - Mild portal hypertensive gastropathy was found in the entire examined stomach. - The examined duodenum was normal. Impression: - Grade II esophageal varices. Banded. - Portal hypertensive gastropathy. - Normal examined duodenum. - No specimens collected. Recommendation: - Patient has a contact number available for emergencies. The signs and symptoms of potential delayed complications were discussed with the patient. Return to normal activities tomorrow. Written discharge instructions were provided to the patient. - NPO today. - Continue present medications. Procedure Code(s): - 59280, Esophagogastroduodenoscopy, flexible, transoral; with band ligation of esophageal/gastric varices Diagnosis Code(s): - I85.00, Esophageal varices without bleeding - K76.6, Portal hypertension - K31.89, Other diseases of stomach and duodenum CPT(R) - 202 copyright [employer]. All Rights Reserved. The CPT codes, CCI edits and ICD codes generated are intended as suggestions and were generated based on input data. These codes are preliminary and upon high climber review may be revised to meet current compliance and payer requirements. The provider is responsible for the final determination of appropriate codes, and modifiers. Pal Castaneda MD This document has been electronically signed. Note Initiated:05/23/2025 Note Completed:05/23/2025 10:52 AM \\[id number]
[2025-05-23] MEDS: ALBUT/IPRATROP 3MG/0.5MG NEB 3 ML VIAL INH PRN (11:14)
--- NOTE | 2025-05-23 11:51 | Anesthesiology Progress Note ---
Date of Service May 23, 2025 Anesthesia Post Procedure Vital Signs Vital Signs: Temp Pulse Pulse Resp BP BP Pulse Ox 05/23/25 11:42 76 20 92 05/23/25 11:40 116/65 05/23/25 11:40 116/65 05/23/25 11:36 76 24 93 05/23/25 11:35 114/63 05/23/25 11:30 76 20 94 05/23/25 11:25 114/68 05/23/25 11:25 114/68 05/23/25 11:25 114/68 05/23/25 11:24 77 22 95 05/23/25 11:20 125/71 05/23/25 11:20 125/71 05/23/25 11:17 88 20 95 05/23/25 11:15 117/68 05/23/25 11:12 120/73 05/23/25 11:10 99/70 L 05/23/25 11:09 78 23 98 05/23/25 11:05 124/78 05/23/25 11:05 124/78 05/23/25 11:05 124/78 05/23/25 11:00 80 20 97 05/23/25 10:57 150/82 H 05/23/25 10:12 90 18 94 05/23/25 10:09 86 16 92 05/23/25 10:04 129/80 05/23/25 10:04 129/80 05/23/25 10:04 129/80 05/23/25 09:57 87 21 89 L 05/23/25 09:54 89 21 92 05/23/25 09:51 113/74 05/23/25 09:51 113/74 05/23/25 09:48 80 13 94 05/23/25 09:33 89 24 95 05/23/25 09:30 116/68 05/23/25 09:21 88 14 95 05/23/25 09:06 90 17 94 05/23/25 09:03 05/23/25 09:00 105/65 05/23/25 08:30 111/72 05/23/25 08:12 05/23/25 08:08 93 H 05/23/25 08:06 93 H 15 95 05/23/25 08:00 100/62 05/23/25 08:00 95 H 16 95 05/23/25 08:00 05/23/25 07:51 37 C 93 H 18 114/64 96 05/23/25 07:36 93 H 17 94 05/23/25 07:35 114/64 05/23/25 07:35 114/64 05/23/25 07:35 114/64 05/23/25 07:35 114/64 05/23/25 07:33 91 H 17 94 05/23/25 07:30 92 H 19 93 05/23/25 07:05 90/50 L 05/23/25 07:03 85/45 L 05/23/25 06:45 36.5 C 96 H 22 108/64 92 05/23/25 06:15 97 H 19 113/65 96 05/23/25 06:14 93 H 19 121/72 95 05/23/25 06:00 96 H 05/23/25 06:00 36.6 C 93 H 19 121/72 95 05/23/25 05:44 36.6 C 98 H 16 94/59 L 96 05/23/25 05:10 36.6 C 96 H 21 97/64 L 93 05/23/25 04:53 36.5 C 100 H 22 107/52 L 05/23/25 04:35 99 H 18 110/63 90 05/23/25 04:30 100 H 18 107/62 91 05/23/25 04:25 100 H 18 111/64 91 05/23/25 04:23 36.9 C 99 H 18 94/66 L 92 05/23/25 04:20 102 H 20 108/67 91 05/23/25 04:15 100 H 18 122/70 92 05/23/25 04:10 98 H 16 119/66 94 05/23/25 04:08 36.8 C 101 H 18 132/75 94 05/23/25 03:55 103 H 18 108/71 92 05/23/25 03:53 36.7 C 101 H 17 90/65 L 93 05/23/25 03:50 36.9 C 102 H 17 90/65 L 92 05/23/25 03:41 103 H 16 119/68 92 05/23/25 03:20 104 H 16 93/61 L 95 05/23/25 03:15 103 H 16 112/68 94 05/23/25 03:12 94 05/23/25 03:10 105 H 16 94/70 L 93 05/23/25 03:10 36.9 C 110 H 18 88/62 L 94 05/23/25 03:08 118 H Pulse Ox O2 Del Method O2 Del Method O2 Flow Rate 05/23/25 11:42 Nasal Cannula 2 05/23/25 11:40 05/23/25 11:40 05/23/25 11:36 Nasal Cannula 4 05/23/25 11:35 05/23/25 11:30 Nasal Cannula 4 05/23/25 11:25 05/23/25 11:25 05/23/25 11:25 05/23/25 11:24 Oxymask 6 05/23/25 11:20 05/23/25 11:20 05/23/25 11:17 Oxymask 6 05/23/25 11:15 05/23/25 11:12 05/23/25 11:10 05/23/25 11:09 Oxymask 8 05/23/25 11:05 05/23/25 11:05 05/23/25 11:05 05/23/25 11:00 Oxymask 10 05/23/25 10:57 05/23/25 10:12 05/23/25 10:09 05/23/25 10:04 05/23/25 10:04 05/23/25 10:04 05/23/25 09:57 05/23/25 09:54 05/23/25 09:51 05/23/25 09:51 05/23/25 09:48 05/23/25 09:33 05/23/25 09:30 05/23/25 09:21 05/23/25 09:06 05/23/25 09:03 Nasal Cannula 2 05/23/25 09:00 05/23/25 08:30 05/23/25 08:12 96 Room Air 05/23/25 08:08 05/23/25 08:06 05/23/25 08:00 05/23/25 08:00 05/23/25 08:00 Room Air 05/23/25 07:51 05/23/25 07:36 05/23/25 07:35 05/23/25 07:35 05/23/25 07:35 05/23/25 07:35 05/23/25 07:33 05/23/25 07:30 05/23/25 07:05 05/23/25 07:03 05/23/25 06:45 05/23/25 06:15 2 05/23/25 06:14 05/23/25 06:00 05/23/25 06:00 05/23/25 05:44 2 05/23/25 05:10 2 05/23/25 04:53 05/23/25 04:35 Room Air 05/23/25 04:30 Room Air 05/23/25 04:25 Room Air 05/23/25 04:23 05/23/25 04:20 Room Air 05/23/25 04:15 Room Air 05/23/25 04:10 Room Air 05/23/25 04:08 05/23/25 03:55 Room Air 05/23/25 03:53 05/23/25 03:50 05/23/25 03:41 Room Air 05/23/25 03:20 Room Air 05/23/25 03:15 Room Air 05/23/25 03:12 Room Air 05/23/25 03:10 Room Air 05/23/25 03:10 Room Air 05/23/25 03:08 Pain Intensity Abdomen: Pain Intensity: 6 Transfer of Care Handoff Completed per policy Notes Mental Status: alert / awake / arousable Patient Amnestic to Procedure: Yes Nausea / Vomiting: adequately controlled Pain: adequately controlled Airway Patency, RR, SpO2: stable & adequate BP & HR: stable & adequate Hydration State: stable & adequate Anesthetic Complications: no major complications apparent and Pt Satisfied with anesthetic care
[2025-05-23 12:12] LABS: Hematocrit (blood only) 32.1 % (42.0-52.0); Hemoglobin 11.0 g/dl (14.0-18.0)
[2025-05-23] MEDS: FAMOTIDINE 20MG IV PUSH 20 MG/5 ML SYR IV STA (12:15)
--- NOTE | 2025-05-23 14:56 | Pharmacy Report ---
Pharmacy Glycemic Short Note 2 - Date of Service May 23, 2025 - Glycemic Short BSG Results (Last 24 hours): 05/23/25 05/23/25 05/23/25 03:09 03:11 06:44 Glucose 218 H POC Glucose 279 H POC Glucose (other) 207 H 05/23/25 12:22 Glucose POC Glucose 254 H POC Glucose (other) OUTPATIENT ANTIDIABETIC REGIMEN: * Metformin * Sitagliptin * Empagliflozin A1c = 9.4% ASSESSMENT: * Gaudencio is a 64 yo T2DM who presented to [facility] with acute onset hematemesis and coffee-ground emesis. Started on pantoprazole and octreotide IV infusions. Patient is s/p GI evaluation and EGD this morning. He has been hyperglycemic since arrival. Received dexamethasone IV in OR (uncertain of exact dose). Anticipate steroid induced hyperglycemia for at least 24 hours. * During March 2024 admission, patient had fasting BSGs around 125-140 withOUT basal insulin. Treated with Novolog CF/CR during that time. * SC basal + bolus insulin has been initiated. Received one time dose of Lantus 10 units this AM. * Worsening glycemic control throughout the day. Discussed with Pier Master Assistant, will start IV insulin infusion. PLAN FOR INPATIENT GLYCEMIC CONTROL: * Hold outpatient oral diabetes medications * Basal insulin * Lantus 10 units SQ x 1 this AM * Start IV insulin infusion for severe hyperglycemia * goal range: 110 - 180 mg/dL * Bolus insulin * NovoLog per scale ACHS * Goal Range:--- * Correction Factor: -- * Nutritional / Prandial insulin per carb ratio of 1 unit per __ grams CHO consumed -> indicated by insulin drip adjustment calculator
[2025-05-23] MEDS: ACETAMINOPHEN 1000 MG/100 ML IV IV PRN (15:31)
[2025-05-23] MEDS ORDERED: STAT IV Infusion **Titration per Protocol STA (15:52)
[2025-05-23] MEDS ORDERED: INSULIN PROTOCOL GOAL RANGE ONE (15:52)
[2025-05-23] MEDS ORDERED: INSULIN ASPART PER UNIT CHARGE SC SCH (16:00)
[2025-05-23] MEDS: INSULIN REGULAR 250 UNITS in SODIUM CHLORIDE 0.9% 247.5 ML IV SCH (16:25)
[2025-05-23] MEDS: NovoLIN-R BOLUS FROM BAG IV ONE (16:26)
[2025-05-23 19:25] LABS: Hematocrit (blood only) 31.9 % (42.0-52.0); Hemoglobin 11.2 g/dl (14.0-18.0)
[2025-05-23] MEDS: diazePAM 5 MG/ML 10ML VIAL IV PRN (20:05)
[2025-05-24 05:23] LABS: Hematocrit (blood only) 30.8 % (42.0-52.0); Hemoglobin 10.3 g/dl (14.0-18.0); Immature Granulocytes # (auto) 0.11 K/uL (0.01-0.20); Immature Granulocytes % (auto) 1.0 %; Mean Corpuscular Hemoglobin 29.0 pg (25.0-34.0); Mean Corpuscular Volume 86.8 fL (80.0-100.0); Platelet Count 114 K/uL (130-400); RDW Standard Deviation 45.0 fL (36.4-46.3); Red Blood Count 3.55 M/uL (4.70-6.10); White Blood Count 10.63 K/ul (4.8-10.8)
[2025-05-24 05:41] LABS: Alanine Aminotransferase 23.0 U/L (7-52); Albumin Globulin Ratio 1.3 (0.9-2); Alkaline Phosphatase 34.0 U/L (34-104); Anion Gap 9.0 (3-11); Bilirubin,Total 0.4 mg/dl (0.2-1.0); Blood Urea Nitrogen 54.0 mg/dl (6-23); Calcium 8.3 mg/dl (8.6-10.3); Carbon Dioxide 25.0 mmol/L (21-32); Chloride 108.0 mmol/L (98-107); Creatinine Clr Calc Pharmacy 92.5 ml/min; Globulin 2.8 gm/dl (2.5-4.0); Glucose 178.0 mg/dl (70-99(Fasting)); Magnesium 2.1 mg/dl (1.7-2.4); Potassium 4.0 mmol/L (3.5-5.1); Sodium 142.0 mmol/L (136-145); Total Protein 6.4 gm/dl (6.0-8.3)
--- NOTE | 2025-05-24 07:45 | Critical Care Progress Note ---
Date of Service May 24, 2025 Assessment & Plan (1) Hematemesis: (2) Acute blood loss anemia: (3) Upper GI bleed: (4) Diabetes mellitus with hyperglycemia: (5) Esophageal varices determined by endoscopy: (6) Liver cirrhosis: (7) Splenomegaly: (8) RLS (restless legs syndrome): (9) Seizure disorder: (10) Diverticulosis: (11) Anxiety: Plan Reason Critically Ill: 64 YOM with history of alcoholic cirrhosis with portal hypertension and grade II esophageal varices. Presents with hematemesis and dark stools for past 2 days with worsening of symptoms at 0230. To ICU for hemodynamic monitoring, continued resuscitation while awaiting evaluation by specialist. Neuro - No acute needs CAM ICU: Negative - Continue home topirimate for headaches when able to tolerate PO - Continue Buspirone and Effexor when able to tolerate PO Cardiac - acute blood loss anemia secondary to likely GI bleed H&H stable - Follow urine output and organ perfusion - currently with BELKIS - Hold Carvedilol until hemodynamics proven stable - hold statin until able to tolerate PO Respiratory - No acute needs GI - GI bleed unspecified- likely upper with hematemesis and elevated BUN, Hx: Cirrhosis and grade II esophageal varices - S/p EGD, grade 2 variceal bleed with banding done Continue with pantoprazole drip and octreotide N.p.o. till cleared by GI - Grayson tiered for nausea/vomiting RENAL/LYTES - -- Monitor BUNs/creatinine Avoid nephrotoxic medication - no acute needs, hx: prostate cancer ENDO - DMII -- ICU hypoglycemia protocol HEME - acute blood loss anemia -- Acute blood loss anemia Secondary to upper GI bleed Monitor H&H ID - Continue with Rocephin for variceal bleed prophylaxis --Prophylaxis VTE: IPC GI: Pantoprazole drip Lines: Referral Diet: N.p.o. Plan: In/out: -3.4 L, urine output [id number] Continue with octreotide and pantoprazole drip Patient does have a history of chronic thrombocytopenia. Continue to monitor Patient hemodynamically stable to be downgrade to medical floor Case was discussed with primary team Please note the above document was generated using voice recognition software. It may contain grammatical, syntax or spelling errors.Any formal questions or concerns about the content, text or information contained within the body of this dictation should be directly addressed to the provider for clarification. Admission and Anticipated Discharge Date Admission Date: May 23, 2025 Subjective Patient seen and examined at bedside. No acute distress, no dizziness overnight He was saturating well on room air Complain of mild epigastric discomfort No shortness of breath, no chest pain He still n.p.o. Denied any headache. Review of Systems 2 Review of Systems: All systems reviewed & are unremarkable except as noted in Subjective Physical Exam 2 Physical Exam: Constitutional: No acute distress HEENT: EOMI, PERRLA Respiratory system: Good air entry bilaterally, no wheeze, no rhonchi, mild crackles bilateral lower lobe CVS: S1-S2 positive, no murmurs or gallops Abdomen: Soft, minimal epigastric tenderness, no rebound, nondistended, positive bowel sounds x4, obese Extremities: +2 pulses bilaterally radialis/ dorsalis pedis, no cyanosis, no edema Neuro: Awake alert oriented x3 Psych: Normal mood and affect G/U: No [place] Skin: no rashes, warm and dry Lymphatic: no cervical or axillary lymphadenopathy Results & Data Results & Data Vital Signs (Past 12 Hours) Vital Signs Temp Pulse Resp BP Pulse Ox O2 Del Method O2 Flow Rate 05/24/25 06:00 147/88 H 05/24/25 06:00 147/88 H 05/24/25 06:00 147/88 H 05/24/25 06:00 79 19 95 05/24/25 05:03 80 20 94 05/24/25 05:00 133/80 05/24/25 04:54 81 20 96 05/24/25 04:06 79 18 91 05/24/25 04:00 143/78 H 05/24/25 03:51 82 18 90 05/24/25 03:27 36.7 C 05/24/25 03:18 85 18 91 05/24/25 03:14 150/90 H 05/24/25 03:14 150/90 H 05/24/25 03:09 88 21 91 05/24/25 03:03 90 19 92 05/24/25 02:12 79 21 95 05/24/25 02:00 11405/24/25 02:00 11405/24/25 02:00 11405/24/25 01:48 75 9 L 93 05/24/25 01:03 79 19 94 05/24/25 01:00 130/75 05/24/25 00:48 80 16 92 05/24/25 00:09 79 18 92 05/24/25 00:00 126/72 05/24/25 00:00 126/72 05/24/25 00:00 80 05/23/25 23:57 78 22 93 05/23/25 23:53 36.6 C 05/23/25 23:27 79 21 94 05/23/25 23:00 138/77 05/23/25 23:00 138/77 05/23/25 23:00 138/77 05/23/25 22:54 85 18 94 05/23/25 22:12 80 20 94 05/23/25 22:00 120/73 05/23/25 22:00 120/73 05/23/25 21:57 82 17 93 05/23/25 21:06 81 20 94 05/23/25 21:00 124/71 05/23/25 20:59 Nasal Cannula 2 05/23/25 20:58 36.7 C 05/23/25 20:57 82 20 94 05/23/25 20:00 81 19 94 05/23/25 20:00 128/75 05/23/25 20:00 128/75 Laboratory Results 05/24/25 04:44 05/24/25 04:44 Coding Level of Care Code 58971 SUB INP/OBS CARE MIN Diagnoses Hematemesis with nausea K92.0 Nausea presence: with nausea Acute blood loss anemia D62 Upper GI bleed K92.2 Diabetes mellitus with hyperglycemia E11.65 Esophageal varices determined by endoscopy I85.00 Alcoholic cirrhosis of liver without ascites K70.30 Ascites presence: without ascites Hepatic cirrhosis type: alcoholic cirrhosis Splenomegaly R16.1 RLS (restless legs syndrome) G25.81 Seizure disorder G40.909 Diverticulosis K57.90 Anxiety F41.9 (1) Hematemesis Nausea presence: with nausea Qualified Code(s): K92.0 - Hematemesis (6) Liver cirrhosis Ascites presence: without ascites Hepatic cirrhosis type: alcoholic cirrhosis Qualified Code(s): K70.30 - Alcoholic cirrhosis of liver without ascites
[2025-05-24 08:03] LABS: Hemoglobin A1C 8.3 % (4.5-5.6)
--- NOTE | 2025-05-24 09:22 | Hospitalist Progress Note ---
Date of Service May 24, 2025 Assessment & Plan (1) Hematemesis: (2) Acute blood loss anemia: (3) Upper GI bleed: (4) Esophageal varices determined by endoscopy: (5) Liver cirrhosis: Plan In summary this is a 64-year-old male who presented with acute onset hematemesis and coffee-ground emesis subsequently admitted for stabilization and further evaluation by gastroenterology. #Acute blood loss anemia secondary to upper gastrointestinal hemorrhage // Hepatic cirrhosis secondary to alcohol use disorder in sustained remission Patient presented with sudden onset hematemesis and abdominal pain; pertinent risk factors include alcohol use disorder in sustained remission with established hepatic cirrhosis with previously visualized grade 3 varices; now s/p 2 U PRBC with hemoglobin trend 10.3, 11.1, 11.2; EGD 05/23 revealed multiple red whale signs with subsequent banding performed in addition to congestive gastropathy; anticipate transfer out of the ICU on 05/24 Continue pantoprazole 40 mg IV every 12 hours Continue octreotide 50 mcg per hour gtt. Discontinue ceftriaxone, 05/24 The patient is not established on any antiplatelets in the outpatient setting nor are they significantly uremic enough to justify need for DDAVP at this time Gastroenterology and licensing manager consulted #Type II diabetes mellitus with hyperglycemia and peripheral neuropathy Most recent hemoglobin A1c of 9.4% obtained 04/2025; glycemic target of less than 180 for all checks considering the current critical illness; pharmacy consulted for assistance with glucose management, started insulin gtt overnight 05/23 Admission and Anticipated Discharge Date Admission Date: May 23, 2025 Subjective Mr. Hammonds is a 64-year-old male whose active medical conditions include hepatic cirrhosis in the setting of alcohol use disorder in sustained remission, complicated by splenomegaly in addition to grade 2 esophageal varices among other chronic medical conditions who presented to [facility] on 05/23 with persistent hematemesis subsequently admitted for further intensive care. This morning the patient is feeling improved from the previous day; their abdominal distention has improved, with some local discomfort in the periumbilical area. There have been no additional episodes of hematemesis or emesis since the patient's admission. Review of Systems Review of Systems: Constitutional: endorses generalized fatigue; denies fevers, chills Cardiovascular: denies angina, palpitations, syncope, peripheral edema, orthopnea Pulmonary: denies cough, dyspnea on exertion, pleuritic chest pain Gastrointestinal: endorses abdominal distention, increased frequency of eructation; denies nausea, additional episodes of hematemesis, dysphagia, regurgitation, constipation, diarrhea, melanotic stool, hematochezia, jaundice Genitourinary: denies dysuria, hematuria, urinary incontinence Neurologic: denies focal weakness, paresthesias or numbness Musculoskeletal: denies arthralgias, progressive weakness, recent falls Integumentary: denies new or developing rashes or lesions Physical Exam Physical Exam: General: Adult male in no acute distress Vital Signs: Reviewed HEENT: normocephalic, atraumatic; mucous membranes tacky Pulmonary: symmetric chest wall excursion; CTAB Cardiovascular: Regular rate and rhythm with no murmurs, rubs, or gallops; S1 and S2 normal; bilateral radial and posterior tibial pulses 2+; trace bilateral lower extremity edema distal of the mid leg; capillary refill of the upper extremity nailbeds approximately 2-3 seconds Gastrointestinal: protuberant, soft; no tenderness to percussion which is of normal resonance throughout the abdomen; tenderness to deep palpation in all 4 quadrants especially in the periumbilical region; no acute peritoneal findings Neurologic: CN II through XII grossly intact Skin: pallor improved from 05/23 Results & Data Results & Data Vital Signs (Past 12 Hours) Vital Signs Temp Pulse Resp BP Pulse Ox 05/24/25 06:00 147/88 H 05/24/25 06:00 147/88 H 05/24/25 06:00 147/88 H 05/24/25 06:00 79 19 95 05/24/25 05:03 80 20 94 05/24/25 05:00 133/80 05/24/25 04:54 81 20 96 05/24/25 04:06 79 18 91 05/24/25 04:00 143/78 H 05/24/25 03:51 82 18 90 05/24/25 03:27 36.7 C 05/24/25 03:18 85 18 91 05/24/25 03:14 150/90 H 05/24/25 03:14 150/90 H 05/24/25 03:09 88 21 91 05/24/25 03:03 90 19 92 05/24/25 02:12 79 21 95 05/24/25 02:00 114/63 05/24/25 02:00 114/63 08/04/25 02:00 114/63 05/24/25 01:48 75 9 L 93 05/24/25 01:03 79 19 94 05/24/25 01:00 130/75 05/24/25 00:48 80 16 92 05/24/25 00:09 79 18 92 05/24/25 00:00 126/72 05/24/25 00:00 126/72 05/24/25 00:00 80 05/23/25 23:57 78 22 93 05/23/25 23:53 36.6 C 05/23/25 23:27 79 21 94 05/23/25 23:00 138/77 05/23/25 23:00 138/77 05/23/25 23:00 138/77 05/23/25 22:54 85 18 94 05/23/25 22:12 80 20 94 05/23/25 22:00 120/73 05/23/25 22:00 120/73 05/23/25 21:57 82 17 93 PG Care Time/CCT Total # of Minutes Spent Total Time Spent with Patient: Total time spent is greater than 50% in coordination of care (as documented) at patient's floor/unit and/or counseling patient: Coding Level of Care Code 20015 SUB INP/OBS CARE 235MIN History Problem Focused Diagnoses Hematemesis with nausea K92.0 Nausea presence: with nausea Acute blood loss anemia D62 Upper GI bleed K92.2 Esophageal varices determined by endoscopy I85.00 Alcoholic cirrhosis of liver without ascites K70.30 Hepatic cirrhosis type: alcoholic cirrhosis Ascites presence: without ascites (1) Hematemesis Nausea presence: with nausea Qualified Code(s): K92.0 - Hematemesis (5) Liver cirrhosis Hepatic cirrhosis type: alcoholic cirrhosis Ascites presence: without ascites Qualified Code(s): K70.30 - Alcoholic cirrhosis of liver without ascites
--- NOTE | 2025-05-24 11:18 | Gastroenterology Progress Note ---
Date of Service May 24, 2025 Assessment & Plan (1) Hematemesis: (2) Acute blood loss anemia: (3) Diabetes mellitus with hyperglycemia: (4) Upper GI bleed: (5) Liver cirrhosis: Plan No further episodes of emesis. some drop in hgb which can be expected given prior episodes. - continue to follow hgb/hct and transfuse as needed. - continue with protonix 40mg IV bid. - encouraged he continue to abstain from alcohol use. 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 Admission and Anticipated Discharge Date Admission Date: May 23, 2025 Supervising Physician Co-Signing Physician Notes I personally saw and examined the patient. I have reviewed the chart and agree with the documentation provided by the ENGINE LATHE TENDER including discussion about the assessment, treatment and plan. Briefly, some melena which I suspect is residual blood from the prior upper GI bleed. Hemoglobin with a mild drop but no active hematemesis. Found to have grade 2 varices along with portal hypertensive gastropathy. Continue octreotide today and PPI. Clear liquid diet today. Will watch with supportive care appreciate ICU help Subjective Patient is a 64 year old male who presented with acute onset hematemesis and coffee-ground emesis subsequently admitted for stabilization and further evaluation. he underwent EGD 05/23 showing grade II Esophageal varices and portal hypertensive gastropathy. banding was done. no further emesis. he reports some ongoing acid reflux and epigastric burning. The remainder of the GI ROS were unremarkable. 05/24/25 hgb 10.3 (previously 11.1). Review of Systems Review of Systems: All systems reviewed & are unremarkable except as noted in HPI & below Physical Exam Constitutional: WD/WN, vitals as above Respiratory: normal respiratory effort, lungs clear to auscultation Cardiovascular: Rate/Rhythm: regular rate and regular rhythm Gastrointestinal (Abdomen): normal bowel sounds, soft, nontender, no hepatosplenomegaly Psychiatric: Orientation: alert and oriented x 3 Affect: euthymic affect Results & Data Results & Data Vital Signs (Past 12 Hours) Vital Signs Temp Pulse Pulse Resp BP BP Pulse Ox 05/24/25 11:06 74 23 96 05/24/25 11:00 134/72 05/24/25 10:59 98.2 F 74 16 131/77 93 05/24/25 10:48 75 21 94 05/24/25 10:15 78 23 96 05/24/25 10:00 127/109 H 05/24/25 09:54 82 19 94 05/24/25 09:03 81 23 96 05/24/25 09:01 130/92 05/24/25 08:54 78 19 96 05/24/25 08:03 75 23 95 05/24/25 08:00 131/77 05/24/25 08:00 81 05/24/25 07:06 81 22 96 05/24/25 07:00 149/81 H 05/24/25 06:00 147/88 H 05/24/25 06:00 147/88 H 05/24/25 06:00 147/88 H 05/24/25 06:00 79 19 95 05/24/25 05:03 80 20 94 05/24/25 05:00 133/80 05/24/25 04:54 81 20 96 05/24/25 04:06 79 18 91 05/24/25 04:00 143/78 H 05/24/25 03:51 82 18 90 05/24/25 03:27 98.1 F 05/24/25 03:18 85 18 91 05/24/25 03:14 150/90 H 05/24/25 03:14 150/90 H 05/24/25 03:09 88 21 91 05/24/25 03:03 90 19 92 05/24/25 02:12 79 21 95 05/24/25 02:00 114/63 05/24/25 02:00 114/63 05/24/25 02:00 114/63 05/24/25 01:48 75 9 L 93 05/24/25 01:03 79 19 94 05/24/25 01:00 130/75 05/24/25 00:48 80 16 92 05/24/25 00:09 79 18 92 05/24/25 00:00 126/72 05/24/25 00:00 126/72 05/24/25 00:00 80 05/23/25 23:57 78 22 93 05/23/25 23:53 97.9 F 05/23/25 23:27 79 21 94 O2 Del Method 05/24/25 11:06 Room Air 05/24/25 11:00 05/24/25 10:59 Room Air 05/24/25 10:48 Room Air 05/24/25 10:15 Room Air 05/24/25 10:00 05/24/25 09:54 Room Air 05/24/25 09:03 Room Air 05/24/25 09:01 05/24/25 08:54 Room Air 05/24/25 08:03 05/24/25 08:00 05/24/25 08:00 05/24/25 07:06 05/24/25 07:00 05/24/25 06:00 05/24/25 06:00 05/24/25 06:00 05/24/25 06:00 05/24/25 05:03 05/24/25 05:00 05/24/25 04:54 05/24/25 04:06 05/24/25 04:00 05/24/25 03:51 05/24/25 03:27 05/24/25 03:18 05/24/25 03:14 05/24/25 03:14 05/24/25 03:09 05/24/25 03:03 05/24/25 02:12 05/24/25 02:00 05/24/25 02:00 05/24/25 02:00 05/24/25 01:48 05/24/25 01:03 05/24/25 01:00 05/24/25 00:48 05/24/25 00:09 05/24/25 00:00 05/24/25 00:00 05/24/25 00:00 05/23/25 23:57 05/23/25 23:53 05/23/25 23:27 Coding Level of Care Code 67573 SUB INP/OBS CARE 11/14MIN Diagnoses Hematemesis with nausea K92.0 Nausea presence: with nausea Acute blood loss anemia D62 Diabetes mellitus with hyperglycemia E11.65 Upper GI bleed K92.2 Alcoholic cirrhosis of liver without ascites K70.30 Ascites presence: without ascites Hepatic cirrhosis type: alcoholic cirrhosis (1) Hematemesis Nausea presence: with nausea Qualified Code(s): K92.0 - Hematemesis (5) Liver cirrhosis Ascites presence: without ascites Hepatic cirrhosis type: alcoholic cirrhosis Qualified Code(s): K70.30 - Alcoholic cirrhosis of liver without ascites
[2025-05-24] MEDS: LANTUS PER UNIT CHARGE SC ONE (11:21)
[2025-05-24] MEDS: INSULIN ASPART PER UNIT CHARGE SC SCH ×2 (13:51→17:52)
[2025-05-24] MEDS: busPIRone 15 MG TAB PO SCH (13:51)
--- NOTE | 2025-05-24 13:51 | Pharmacy Report ---
Pharmacy Glycemic Short Note 2 - Date of Service May 24, 2025 - Glycemic Short BSG Results (Last 24 hours): 05/23/25 05/23/25 05/23/25 15:35 17:30 18:30 Glucose POC Glucose 296 H 288 H 340 H* 05/23/25 05/23/25 05/23/25 19:30 20:34 21:55 Glucose POC Glucose 248 H 244 H 238 H 05/23/25 05/24/25 05/24/25 23:00 00:01 01:06 Glucose POC Glucose 246 H 200 H 260 H 05/24/25 05/24/25 05/24/25 02:07 03:10 03:59 Glucose POC Glucose 213 H 240 H 176 H 05/24/25 05/24/25 05/24/25 04:44 05:03 06:13 Glucose 178 H POC Glucose 194 H 176 H 05/24/25 05/24/25 05/24/25 07:13 07:58 10:02 Glucose POC Glucose 162 H 150 H 135 H 05/24/25 05/24/25 11:53 13:19 Glucose POC Glucose 111 H 117 H OUTPATIENT ANTIDIABETIC REGIMEN: * Metformin * Sitagliptin * Empagliflozin A1c = 9.4% ASSESSMENT: 05/24 * Patient remains NPO follow EGD yesterday. BSGs have trended downward- steady insulin drip rate of 4.2 units/hr. Provided 25 units x 1 of lantus to transition off of insulin infusion. ~25% of drip rate--- as BSG trending downward/NPO/split 50/50 with Novolog * Resume Novolog q4 for now, anticipate resuming diet later today 05/23 * Gaudencio is a 64 yo T2DM who presented to [facility] with acute onset hematemesis and coffee-ground emesis. Started on pantoprazole and octreotide IV infusions. Mark warren is s/p GI evaluation and EGD this morning. He has been hyperglycemic since arrival. Received dexamethasone IV in OR (uncertain of exact dose). Anticipate steroid induced hyperglycemia for at least 24 hours. * During March 2024 admission, patient had fasting BSGs around 125-140 withOUT basal insulin. Treated with Novolog CF/CR during that time. * SC basal + bolus insulin has been initiated. Received one time dose of Lantus 10 units this AM. * Worsening glycemic control throughout the day. Discussed with Air Quality Engineer, will start IV insulin infusion. PLAN FOR INPATIENT GLYCEMIC CONTROL: * Hold outpatient oral diabetes medications * Basal insulin * Lantus 25 units SQ x 1 this AM, transitioned off of insulin infusion ~1330 * Bolus insulin * NovoLog per scale ACHS * Goal Range:110-160 mg/dL * Correction Factor: 30 mg/dl/unit * Nutritional / Prandial insulin per carb ratio of 1 unit per 10 grams CHO consumed
[2025-05-24] MEDS: ROSUVASTATIN CALCIUM 20 MG TAB PO SCH (20:35)
[2025-05-24] MEDS: MIRTAZAPINE TAB 15 MG TAB PO SCH (20:36)
[2025-05-24] MEDS: ACETAMINOPHEN 325 MG TAB PO PRN (20:36)
[2025-05-24] MEDS: PANTOprazole 40 MG/10 ML SYR IV SCH (21:01)
[2025-05-25 07:38] LABS: Hematocrit (blood only) 29.0 % (42.0-52.0); Hemoglobin 9.4 g/dl (14.0-18.0); Immature Granulocytes # (auto) 0.06 K/uL (0.01-0.20); Immature Granulocytes % (auto) 1.0 %; Mean Corpuscular Hemoglobin 30.0 pg (25.0-34.0); Mean Corpuscular Volume 92.7 fL (80.0-100.0); Platelet Count 81 K/uL (130-400); RDW Standard Deviation 49.7 fL (36.4-46.3); Red Blood Count 3.13 M/uL (4.70-6.10); White Blood Count 6.19 K/ul (4.8-10.8)
--- NOTE | 2025-05-25 08:40 | Hospitalist Progress Note ---
Date of Service May 25, 2025 Assessment & Plan (1) Hematemesis: (2) Acute blood loss anemia: (3) Upper GI bleed: (4) Esophageal varices determined by endoscopy: (5) Liver cirrhosis: Plan In summary this is a 64-year-old male who presented with acute onset hematemesis and coffee-ground emesis subsequently admitted for stabilization and further evaluation by gastroenterology. #Acute blood loss anemia secondary to upper gastrointestinal hemorrhage // Hepatic cirrhosis secondary to alcohol use disorder in sustained remission Patient presented with sudden onset hematemesis and abdominal pain; pertinent risk factors include alcohol use disorder in sustained remission with established hepatic cirrhosis with previously visualized grade 3 varices; now s/p 2 U PRBC with hemoglobin trend 10.3, 11.1, 11.2; EGD 05/23 revealed multiple red whale signs with subsequent banding performed in addition to congestive gastropathy; anticipate transfer out of the ICU on 05/24 Continue pantoprazole 40 mg IV every 12 hours Continue octreotide 50 mcg per hour gtt. Discontinued ceftriaxone 05/24 Gastroenterology consulted #Type II diabetes mellitus with hyperglycemia and peripheral neuropathy Most recent hemoglobin A1c of 9.4% obtained 04/2025; glycemic target of less than 180 for all checks considering the current critical illness; pharmacy consulted for assistance with glucose management, started insulin gtt overnight 05/23 Admission and Anticipated Discharge Date Admission Date: May 23, 2025 Subjective Mr. Hammonds is a 64-year-old male whose active medical conditions include hepatic cirrhosis in the setting of alcohol use disorder in sustained remission, complicated by splenomegaly in addition to grade 2 esophageal varices among other chronic medical conditions who presented to [facility] on 05/23 with persistent hematemesis subsequently admitted for further intensive care. No acute overnight events; this morning the patient is feeling improved from the previous day; continues to have mild abdominal discomfort; tolerating oral intake without difficulty. Review of Systems Review of Systems: Constitutional: endorses generalized fatigue; denies fevers, chills Cardiovascular: denies angina, palpitations, syncope, peripheral edema, orthopnea Pulmonary: denies cough, dyspnea on exertion, pleuritic chest pain Gastrointestinal: denies nausea, additional episodes of hematemesis, dysphagia, regurgitation, constipation, diarrhea, melanotic stool, hematochezia, jaundice Genitourinary: denies dysuria, hematuria, urinary incontinence Neurologic: denies focal weakness, paresthesias or numbness Musculoskeletal: denies arthralgias, progressive weakness, recent falls Integumentary: denies new or developing rashes or lesions Physical Exam Physical Exam: General: Adult male in no acute distress Vital Signs: Reviewed HEENT: normocephalic, atraumatic; mucous membranes tacky Pulmonary: symmetric chest wall excursion; CTAB Cardiovascular: Regular rate and rhythm with no murmurs, rubs, or gallops; S1 and S2 normal; bilateral radial and posterior tibial pulses 2+; trace bilateral lower extremity edema distal of the mid leg; capillary refill of the upper extremity nailbeds approximately 2-3 seconds Gastrointestinal: protuberant, soft; no tenderness to percussion which is of normal resonance throughout the abdomen; tenderness to deep palpation in all 4 quadrants especially in the periumbilical region; no acute peritoneal findings Neurologic: CN II through XII grossly intact Results & Data Results & Data Vital Signs (Past 12 Hours) Vital Signs Temp Pulse Pulse Resp BP BP Pulse Ox 05/25/25 07:56 36.5 C 58 L 16 110/64 96 05/25/25 07:28 68 05/25/25 03:06 36.4 C L 64 18 100/61 96 05/24/25 23:34 36.4 C L 64 16 96/48 L 96 05/24/25 22:59 72 O2 Del Method 05/25/25 07:56 Room Air 05/25/25 07:28 05/25/25 03:06 Room Air 05/24/25 23:34 Room Air 05/24/25 22:59 PG Care Time/CCT Total # of Minutes Spent Total Time Spent with Patient: Total time spent is greater than 50% in coordination of care (as documented) at patient's floor/unit and/or counseling patient: Coding Level of Care Code 48853 SUB INP/OBS CARE 2/35MIN Diagnoses Hematemesis with nausea K92.0 Nausea presence: with nausea Acute blood loss anemia D62 Upper GI bleed K92.2 Esophageal varices determined by endoscopy I85.00 Alcoholic cirrhosis of liver without ascites K70.30 Hepatic cirrhosis type: alcoholic cirrhosis Ascites presence: without ascites (1) Hematemesis Nausea presence: with nausea Qualified Code(s): K92.0 - Hematemesis (5) Liver cirrhosis Hepatic cirrhosis type: alcoholic cirrhosis Ascites presence: without ascites Qualified Code(s): K70.30 - Alcoholic cirrhosis of liver without ascites
--- NOTE | 2025-05-25 10:18 | Gastroenterology Progress Note ---
Date of Service May 25, 2025 Assessment & Plan (1) Hematemesis: (2) Acute blood loss anemia: (3) Abdominal pain: Plan No further episodes of emesis. hgb dropped further. He is reporting abdominal pain that has worsened. - continue to follow hgb/hct and transfuse as needed. - continue with protonix 40mg IV bid. - will check a CT A/P to further evaluate his pain. -Further recommendations to come with Supervising GI provider on medical rounds. Please see co-signature comments. Admission and Anticipated Discharge Date Admission Date: May 23, 2025 Supervising Physician Co-Signing Physician Notes I personally saw and examined the patient. I have reviewed the chart and agree with the documentation provided by the BILLET SHEARER including discussion about the assessment, treatment and plan. Briefly, generalized abdominal pain lower abdominal. The CT was unrevealing. Start a soft mechanical 2 g sodium diet. Hemoglobin has been stable. Can consider dicyclomine or Gas-X for the pain Subjective Patient reports some abdominal pain that has been worsening today. rated 6/10. dull. fairly constant. He had one dark bowel movement yesterday, but none since. The remainder of the GI ROS were unremarkable. 05/25/25 hgb 9.4 (previously 10.3). Review of Systems Review of Systems: All systems reviewed & are unremarkable except as noted in HPI & below Physical Exam Constitutional: WD/WN, vitals as above Respiratory: normal respiratory effort, lungs clear to auscultation Cardiovascular: Rate/Rhythm: regular rate and regular rhythm Gastrointestinal (Abdomen): mild diffuse tenderness, no guarding, soft, normal bowel sounds. Psychiatric: Orientation: alert and oriented x 3 Results & Data Results & Data Vital Signs (Past 12 Hours) Vital Signs Temp Pulse Pulse Resp BP BP Pulse Ox 05/25/25 07:56 97.7 F 58 L 16 110/64 96 05/25/25 07:28 68 05/25/25 03:06 97.5 F L 64 18 100/61 96 05/24/25 23:34 97.5 F L 64 16 96/48 L 96 05/24/25 22:59 72 O2 Del Method 05/25/25 07:56 Room Air 05/25/25 07:28 05/25/25 03:06 Room Air 05/24/25 23:34 Room Air 05/24/25 22:59 Coding Level of Care Code 53055 SUB INP/OBS CARE 2/35MIN Diagnoses Hematemesis with nausea K92.0 Nausea presence: with nausea Acute blood loss anemia D62 Abdominal pain R10.9 (1) Hematemesis Nausea presence: with nausea Qualified Code(s): K92.0 - Hematemesis
[2025-05-25] MEDS: LANTUS PER UNIT CHARGE SC ONE (12:25)
[2025-05-25] MEDS: OPTIRAY 320 100ml IV ONE (12:54)
--- NOTE | 2025-05-25 13:29 | CT Scan Report ---
ABDOMEN AND PELVIS CT WITH IV AND ORAL CONTRAST CT DOSE: 1403.54 mGy.cm HISTORY: Acute left abdominal pain abdominal pain TECHNIQUE: Multiaxial CT images of the abdomen and pelvis were performed following the IV administrat ion of 93 cc of Optiray and oral contrast. A dose lowering technique was utilized adhering to the pr inciples of SUNIL. COMPARISON STUDY: Abdominal ultrasound 05/12/2025, CT abdomen and pelvis 04/04/2024 FINDINGS: Moderate to extensive coronary artery calcifications. Clear lung bases. No pneumatosis or p neumoperitoneum. The spleen is again mildly enlarged measuring 14.4 cm. Unremarkable pancreas and adr enal glands. Cholecystectomy. Marginal nodularity of the liver compatible with cirrhosis is again see n. Probable hepatic steatosis. Patent portal vein. No liver lesions are seen. Bilateral perinephric stranding is again noted. 2.1 x 1.97 m exophytic hypodense lesion of the inferi or pole right kidney on image 191 demonstrates Hounsfield unit of 23, suggestive of a mildly complex cyst. No hydronephrosis. Brachii therapy seeds of the mildly enlarged prostate. Urinary bladder wall thickening. Atherosclerosis of the aorta. Subcentimeter retroperitoneal lymph nodes. Moderate circumferential distal esophageal wall thickening has progressed from prior. Esophageal vari cosities are noted. Trace abdominopelvic ascites. Circumferential wall thickening of the rectosigmoid is similar to prior. Colonic diverticulosis without definite evidence of acute diverticulitis. Moder ate colonic fecal retention. Normal appendix. Unremarkable soft tissues. No acute fracture. IMPRESSION: 1. Cirrhosis with stigmata of portal venous hypertension including splenomegaly with trace ascites an d dinorah-esophageal varicosities. 2. Moderate wall thickening of the distal esophagus may represent esophagitis. Correlate clinically. 3. Mild wall thickening of the rectosigmoid and be secondary to partial distention versus a mild nons pecific proctocolitis. 4. Colonic diverticulosis without acute diverticulitis. ACT 112: Negative or not required by law. The above report was generated using voice recognition software. It may contain grammatical, syntax o r spelling errors. Electronically signed by: Neil Orta M.D. 05/25/2025 1:28 PM
[2025-05-26 04:58] LABS: Hematocrit (blood only) 27.2 % (42.0-52.0); Hemoglobin 9.2 g/dl (14.0-18.0); Immature Granulocytes # (auto) 0.02 K/uL (0.01-0.20); Immature Granulocytes % (auto) 0.4 %; Mean Corpuscular Hemoglobin 29.8 pg (25.0-34.0); Mean Corpuscular Volume 88.0 fL (80.0-100.0); Platelet Count 87 K/uL (130-400); RDW Standard Deviation 44.7 fL (36.4-46.3); Red Blood Count 3.09 M/uL (4.70-6.10); White Blood Count 4.85 K/ul (4.8-10.8)
[2025-05-26] MEDS: LORazepam 0.5 MG TAB PO STA (08:47)
[2025-05-26] MEDS: LORazepam 0.5 MG TAB ONE (09:02)
--- NOTE | 2025-05-26 09:02 | Hospitalist Progress Note ---
Date of Service May 26, 2025 Assessment & Plan (1) Hematemesis: (2) Acute blood loss anemia: (3) Upper GI bleed: (4) Esophageal varices determined by endoscopy: (5) Liver cirrhosis: Plan In summary this is a 64-year-old male who presented with acute onset hematemesis and coffee-ground emesis subsequently admitted for stabilization and further evaluation by gastroenterology. #Acute blood loss anemia secondary to upper gastrointestinal hemorrhage // Hepatic cirrhosis secondary to alcohol use disorder in sustained remission Patient presented with sudden onset hematemesis and abdominal pain; pertinent risk factors include alcohol use disorder in sustained remission with established hepatic cirrhosis with previously visualized grade 3 varices; now s/p 2 U PRBC with hemoglobin trend 10.3, 11.1, 11.2; EGD 05/23 revealed multiple red whale signs with subsequent banding performed in addition to congestive gastropathy; anticipate transfer out of the ICU on 05/24 Continue pantoprazole 40 mg IV every 12 hours Continue octreotide 50 mcg per hour gtt. Discontinued ceftriaxone 05/24 Gastroenterology consulted, CTAP as above, appreciate recommendations - H&H stable, no further bouts of hematemesis - Currently remains on CLD, will discuss w/ GI regarding advancement #Type II diabetes mellitus with hyperglycemia and peripheral neuropathy - Most recent hemoglobin A1c of 9.4% obtained 04/2025; glycemic target of less than 180 for all checks considering the current critical illness; - pharmacy consulted for assistance with glucose management, started insulin gtt overnight 05/23 #Panic attack/anxiety/depression - Continue pristiq, buspar, and will order hydroxyzine PRN - Give dose of lorazepam 0.5mg PO x1 NOW #Wheezing - ?remote h/o asthma per pt - Give a duoneb x1 - No hypoxia, no edema c/f volume overload, no cough or fever c/f pna Tx anxiety as noted above. Anticipate probable dietary advancement, trend H&H, if remains stable and tolerates advanced diet, potential discharge later today vs. tomorrow? Plan to be d/w Dr. Brooks. Admission and Anticipated Discharge Date Admission Date: May 23, 2025 Chidi Ratliff was seen on daily rounds this morning. Nursing contacted this AM to note that patient was confused, agitated and trying to leave. When I arrived at bedside, pt alert and oriented, reported having a "panic attack" and feeling like he couldn't breathe. Denies chest pain. He reports a remote h/o asthma, does use trelegy on occasion. He continues to endorse vague abd discomfort, mostly epigastric and lower. No further bouts of emesis. Reports recent med changes, just taken off of clonidine about one week ago. He takes pristiq, buspar, and hydroxyzine as needed for his depression/anxiety. He is upset about his continued CLD and reports that he hasn't had any food since Saturday. Review of Systems 2 Review of Systems: All systems reviewed and are unremarkable except as noted in HPI and below. Denies fever, chills, fatigue, headache, nasal congestion, sore throat, cough, chest pain, shortness of breath, palpitations, orthopnea, PND, n/v/d, constipation, dysuria, hematuria, frequency, back pain, joint pain or swelling, easy bruising or bleeding, skin lesions or rashes. Physical Exam 2 Physical Exam: GENERAL: 64 yo well-nourished WM. Alert & oriented, no distress. LUNGS: Clear to auscultation bilaterally. No accessory muscle use. Mild insp/exp wheezes L>R CARDIOVASCULAR: Regular rate and rhythm. No M/G/R. No JVD. ABDOMEN: Soft, mild TTP in epigastrium, non-distended. No palpable masses. Bowel sounds normoactive x 4 quad. EXTREMITIES: No edema. Non-tender. Peripheral pulses +2/4. NEUROLOGIC: No focal neurological deficits. CN II-XII grossly intact. PSYCHIATRIC: Cooperative. Appropriate mood and affect. SKIN: Warm, dry, intact. No rashes or lesions. Results & Data Results & Data Vital Signs (Past 12 Hours) Vital Signs Temp Pulse Pulse Resp BP Pulse Ox O2 Del Method 05/26/25 07:55 36.5 C 88 20 122/73 95 Room Air 05/26/25 02:57 36.4 C L 67 20 109/62 93 Room Air 05/25/25 23:32 36.6 C 59 L 18 137/78 97 Room Air 05/25/25 21:56 56 L Laboratory Results 05/26/25 03:52 05/24/25 04:44 Diagnostic Findings Abdomen/Pelvis CT 05/25/25 10:[address] WITH IV AND ORAL CONTRAST CT DOSE: 1403.54 mGy.cm HISTORY: Acute left abdominal pain abdominal pain TECHNIQUE: Multiaxial CT images of the abdomen and pelvis were performed following the IV administration of 93 cc of Optiray and oral contrast. A dose lowering technique was utilized adhering to the principles of ALARA. COMPARISON STUDY: Abdominal ultrasound 05/12/2025, CT abdomen and pelvis 04/04/2024 FINDINGS: Moderate to extensive coronary artery calcifications. Clear lung bases. No pneumatosis or pneumoperitoneum. The spleen is again mildly enlarged measuring 14.4 cm. Unremarkable pancreas and adrenal glands. Cholecystectomy. Marginal nodularity of the liver compatible with cirrhosis is again seen. Probable hepatic steatosis. Patent portal vein. No liver lesions are seen. Bilateral perinephric stranding is again noted. 2.1 x 1.97 m exophytic hypodense lesion of the inferior pole right kidney on image 191 demonstrates Hounsfield unit of 23, suggestive of a mildly complex cyst. No hydronephrosis. Brachii therapy seeds of the mildly enlarged prostate. Urinary bladder wall thickening. Atherosclerosis of the aorta. Subcentimeter retroperitoneal lymph nodes. Moderate circumferential distal esophageal wall thickening has progressed from prior. Esophageal varicosities are noted. Trace abdominopelvic ascites. Circumferential wall thickening of the rectosigmoid is similar to prior. Colonic diverticulosis without definite evidence of acute diverticulitis. Moderate colonic fecal retention. Normal appendix. Unremarkable soft tissues. No acute fracture. IMPRESSION: 1. Cirrhosis with stigmata of portal venous hypertension including splenomegaly with trace ascites and dinorah-esophageal varicosities. 2. Moderate wall thickening of the distal esophagus may represent esophagitis. Correlate clinically. 3. Mild wall thickening of the rectosigmoid and be secondary to partial distention versus a mild nonspecific proctocolitis. 4. Colonic diverticulosis without acute diverticulitis. ACT 112: Negative or not required by law. The above report was generated using voice recognition software. It may contain grammatical, syntax or spelling errors. Electronically signed by: Neil Orta M.D. 05/25/2025 1:28 PM PG Care Time/CCT Total # of Minutes Spent Total Time Spent with Patient: Total time spent is greater than 50% in coordination of care (as documented) at patient's floor/unit and/or counseling patient: 36 minutes Coding Level of Care Code 16580 SUB INP/OBS CARE 2/35MIN Diagnoses Hematemesis with nausea K92.0 Nausea presence: with nausea Acute blood loss anemia D62 Upper GI bleed K92.2 Esophageal varices determined by endoscopy I85.00 Alcoholic cirrhosis of liver without ascites K70.30 Hepatic cirrhosis type: alcoholic cirrhosis Ascites presence: without ascites (1) Hematemesis Nausea presence: with nausea Qualified Code(s): K92.0 - Hematemesis (5) Liver cirrhosis Hepatic cirrhosis type: alcoholic cirrhosis Ascites presence: without ascites Qualified Code(s): K70.30 - Alcoholic cirrhosis of liver without ascites
--- NOTE | 2025-05-26 09:38 | Gastroenterology Progress Note ---
Date of Service May 26, 2025 Assessment & Plan (1) Liver cirrhosis: (2) Acute blood loss anemia: Plan Suspect that confusion this morning was a combination of anxiety and encephalopathy related to blood he had passed. Seems to have resolved. no signs of further bleeding. - can advance diet and see how he does with this. - continue to follow hgb/hct and transfuse as needed. Admission and Anticipated Discharge Date Admission Date: May 23, 2025 Supervising Physician Co-Signing Physician Notes I personally saw and examined the patient. I have reviewed the chart and agree with the documentation provided by the CORPORATE TRAINING MANAGER including discussion about the assessment, treatment and plan. Briefly, little confusion and anxiety with a panic attack today. He is not bleeding anymore. I think he just needs supportive care and lets start a diet today and see how he does clinically. The confusion is likely mild encephalopathy related to his recent melena. More of it is his anxiety Subjective Patient had some confusion this morning. no signs of bleeding. hgb 9.2 (was previously 9.4). the rest of the GI ros are unremarkable. Review of Systems Review of Systems: All systems reviewed & are unremarkable except as noted in HPI & below Physical Exam Constitutional: WD/WN, vitals as above Respiratory: normal respiratory effort, lungs clear to auscultation Cardiovascular: Rate/Rhythm: regular rate and regular rhythm Gastrointestinal (Abdomen): normal bowel sounds, soft, nontender, no hepatosplenomegaly Psychiatric: Orientation: alert and oriented x 3 Results & Data Results & Data Vital Signs (Past 12 Hours) Vital Signs Temp Pulse Pulse Resp BP Pulse Ox O2 Del Method 05/26/25 07:55 97.7 F 88 20 122/73 95 Room Air 05/26/25 02:57 97.5 F L 67 20 109/62 93 Room Air 05/25/25 23:32 97.9 F 59 L 18 137/78 97 Room Air 05/25/25 21:56 56 L Coding Level of Care Code 24423 SUB INP/OBS CARE 2/35MIN Diagnoses Alcoholic cirrhosis of liver without ascites K70.30 Ascites presence: without ascites Hepatic cirrhosis type: alcoholic cirrhosis Acute blood loss anemia D62 (1) Liver cirrhosis Ascites presence: without ascites Hepatic cirrhosis type: alcoholic cirrhosis Qualified Code(s): K70.30 - Alcoholic cirrhosis of liver without ascites
[2025-05-26] MEDS: ALBUT/IPRATROP 3MG/0.5MG NEB 3 ML VIAL NEB STA (10:11)
[2025-05-26] MEDS: LANTUS PER UNIT CHARGE SC SCH (12:23)
--- NOTE | 2025-05-26 14:10 | Pharmacy Report ---
Pharmacy Glycemic Short Note 2 - Date of Service May 26, 2025 - Glycemic Short BSG Results (Last 24 hours): 05/25/25 05/25/25 05/26/25 17:18 19:47 10:04 POC Glucose 190 H 228 H 162 H 05/26/25 11:46 POC Glucose 268 H OUTPATIENT ANTIDIABETIC REGIMEN: * Metformin * Sitagliptin * Empagliflozin A1c = 9.4% ASSESSMENT: 05/26 * Gaudencio received 46 units of insulin yesterday (30 wer basal) * Fasting BSG this AM within goal range, will continue current basal regimen. * NovoLog tightened yesterday, will continue and trend at this time. Diet advanced to T2DM today. No glycemic stressors noted at this time. 05/24: * Patient remains NPO follow EGD yesterday. BSGs have trended downward- steady insulin drip rate of 4.2 units/hr. Provided 25 units x 1 of lantus to tra nsition off of insulin infusion. ~25% of drip rate--- as BSG trending downward/NPO/split 50/50 with Novolog * Resume Novolog q4 for now, anticipate resuming diet later today 05/23 * Gaudencio is a 64 yo T2DM who presented to [facility] with acute onset hematemesis and coffee-ground emesis. Started on pantoprazole and octreotide IV infusions. Patient is s/p GI evaluation and EGD this morning. He has been hyperglycemic since arrival. Received dexamethasone IV in OR (uncertain of exact dose). Anticipate steroid induced hyperglycemia for at least 24 hours. * During March 2024 admission, patient had fasting BSGs around 125-140 withOUT basal insulin. Treated with Novolog CF/CR during that time. * SC basal + bolus insulin has been initiated. Received one time dose of Lantus 10 units this AM. * Worsening glycemic control throughout the day. Discussed with Rn Surgery [facility], will start IV insulin infusion. PLAN FOR INPATIENT GLYCEMIC CONTROL: * Hold outpatient oral diabetes medications * Basal insulin * Lantus 30 units SQ QAM * Bolus insulin * NovoLog per scale ACHS * Goal Range:110-160 mg/dL * Correction Factor: 25 mg/dl/unit * Nutritional / Prandial insulin per carb ratio of 1 unit per 8 grams CHO consumed
[2025-05-27 04:26] VITALS: O2SAT 93
[2025-05-27 07:11] LABS: Hematocrit (blood only) 29.3 % (42.0-52.0); Hemoglobin 10.0 g/dl (14.0-18.0); Immature Granulocytes # (auto) 0.06 K/uL (0.01-0.20); Immature Granulocytes % (auto) 1.2 %; Mean Corpuscular Hemoglobin 29.2 pg (25.0-34.0); Mean Corpuscular Volume 85.4 fL (80.0-100.0); Platelet Count 95 K/uL (130-400); RDW Standard Deviation 42.6 fL (36.4-46.3); Red Blood Count 3.43 M/uL (4.70-6.10); White Blood Count 4.87 K/ul (4.8-10.8)
[2025-05-27 07:32] LABS: Anion Gap 6.0 (3-11); Blood Urea Nitrogen 12.0 mg/dl (6-23); Calcium 8.2 mg/dl (8.6-10.3); Carbon Dioxide 25.0 mmol/L (21-32); Chloride 108.0 mmol/L (98-107); Creatinine Clr Calc Pharmacy 121.5 ml/min; Glucose 121.0 mg/dl (70-99(Fasting)); Potassium 3.1 mmol/L (3.5-5.1); Sodium 139.0 mmol/L (136-145)
[2025-05-27 08:23] VITALS: PULSE 61; RESP 18; TEMP 97.7
[2025-05-27] MEDS: POTASSIUM CHLORIDE CRTAB 20 MEQ TABCR PO STA (09:26)
--- NOTE | 2025-05-27 09:57 | Gastroenterology Progress Note ---
Date of Service May 27, 2025 Assessment & Plan (1) Abdominal pain: (2) Liver cirrhosis: Plan Patient feeling much better. hgb improved. he is questioning discharge to home, which is okay from a GI standpoint. - continue with protonix 40mg bid - encouraged he continue to abstain from alcohol use. - he should follow up with his regular flat knitter upon discharge. Admission and Anticipated Discharge Date Admission Date: May 23, 2025 Supervising Physician Co-Signing Physician Notes I personally saw and examined the patient. I have reviewed the chart and agree with the documentation provided by the SOLAR PROJECT ENGINEER including discussion about the assessment, treatment and plan. Briefly, continue Coreg as this will help with his secondary prophylaxis for his varices. He has grade 2 varices. He will need follow-up with GI outpatient. We reiterated alcohol cessation. He is stable for discharge from a GI perspective. Subjective abdominal pain has improved. he feels better since increasing diet. no nausea, vomiting, acid reflux. The remainder of the GI ROS were unremarkable. hgb improved to 10. Review of Systems Review of Systems: All systems reviewed & are unremarkable except as noted in HPI & below Physical Exam Constitutional: WD/WN, vitals as above Respiratory: normal respiratory effort, lungs clear to auscultation Cardiovascular: Rate/Rhythm: regular rate and regular rhythm Gastrointestinal (Abdomen): normal bowel sounds, soft, nontender, no hepatosplenomegaly Psychiatric: Orientation: alert and oriented x 3 Affect: euthymic affect Results & Data Results & Data Vital Signs (Past 12 Hours) Vital Signs Temp Pulse Pulse Resp BP BP Pulse Ox 05/27/25 08:22 97.7 F 61 18 132/81 93 05/27/25 07:21 62 05/27/25 03:32 97.9 F 69 16 122/68 93 05/26/25 22:49 97.3 F L 69 18 146/75 H 97 05/26/25 22:18 72 O2 Del Method 05/27/25 08:22 Room Air 05/27/25 07:21 05/27/25 03:32 Room Air 05/26/25 22:49 Room Air 05/26/25 22:18 Coding Level of Care Code 64355 SUB INP/OBS CARE 11/14MIN Diagnoses Abdominal pain R10.9 Alcoholic cirrhosis of liver without ascites K70.30 Ascites presence: without ascites Hepatic cirrhosis type: alcoholic cirrhosis (2) Liver cirrhosis Ascites presence: without ascites Hepatic cirrhosis type: alcoholic cirrhosis Qualified Code(s): K70.30 - Alcoholic cirrhosis of liver without ascites
--- NOTE | 2025-05-27 10:23 | Discharge Summary ---
Date of Service May 27, 2025 Admission HPI Per Admitting Provider The patient is a 64-year-old male with past medical history including sigmoid diverticulitis, lower GI bleeding, thrombocytopenia, diabetes mellitus, splenomegaly, portal hypertension, liver cirrhosis, history of alcohol dependence, esophageal varices, major depression, seizure disorder, and hypertension. He presents to the emergency department with complaint of coffee- ground emesis that began around 230 this evening. His symptoms initially began with abdominal cramping over the past few days. Upon arrival in the emergency department patient did vomit a large volume of blood. He was given normal saline 1 L, started on Protonix drip, and octreotide drip. He was also given Zofran 4 mg IV, and fentanyl 25 mcg IV. He is receiving 2 units PRBCs from the emergency department, with 2 units on hold. Blood pressure at its lowest was 88/62, and presently is 107/52. Specialty Data Hospitalist Discharge diagnoses: 1. Acute UGI Bleed 2. ABLA s/p blood transfusion 3. Esophageal varices s/p banding Discharge assessment: Vital Signs Temp Pulse Pulse Resp BP BP Pulse Ox 05/27/25 11:14 36.5 C 61 18 132/81 122/68 93 05/27/25 09:20 05/27/25 08:22 36.5 C 61 18 132/81 93 05/27/25 07:21 62 05/27/25 03:32 36.6 C 69 16 122/68 93 05/26/25 22:49 36.3 C L 69 18 146/75 H 97 05/26/25 22:18 72 05/26/25 20:06 36.7 C 59 L 18 119/69 96 05/26/25 20:00 05/26/25 16:00 69 05/26/25 15:38 36.5 C 66 20 113/70 97 05/26/25 12:00 54 L 05/26/25 11:36 36.3 C L 65 20 119/69 95 GENERAL: 64 yo well-nourished WM. A&O x3. No distress. LUNGS: Clear to auscultation bilaterally. No W/R/R. CARDIOVASCULAR: Regular rate and rhythm. ABDOMEN: Soft, non-tender and non-distended. BS normoactive x 4 quad. EXTREMITIES: No edema. Non-tender. Peripheral pulses +2/4. PSYCHIATRIC: Cooperative. Appropriate mood and affect. SKIN: Warm, dry, intact. No rashes or lesions. Discharge Data Consultations 05/23/25 03:51 ED Decision to Admit Stat 05/23/25 05:20 Consult Addressing Machine Operator Routine 05/23/25 06:30 Consult Gastroenterology Routine Procedures Performed Operation Date: 05/23/25 09:00 Actual Procedures p Esophagogastroduodenoscopy(Not Applicable) - Pal Castaneda MD Chest X-Ray 05/23/25 03:22 EXAM: XR chest 1V portable CLINICAL HISTORY: abnormal breath sounds TECHNIQUE: Radiograph of chest was acquired. COMPARISON: No FINDINGS: The lungs are clear and well-expanded with no pulmonary infiltrate or pleural effusion. The cardiomediastinal silhouette is within normal limits. No acute osseous abnormality. IMPRESSION: 1. No acute cardiopulmonary disease. Electronically signed by Roque Betts 05-23-2025 04:39 AM Abdomen/Pelvis CT 05/25/25 10:[address] WITH IV AND ORAL CONTRAST CT DOSE: 1403.54 mGy.cm HISTORY: Acute left abdominal pain abdominal pain TECHNIQUE: Multiaxial CT images of the abdomen and pelvis were performed following the IV administration of 93 cc of Optiray and oral contrast. A dose lowering technique was utilized adhering to the principles of ALARA. COMPARISON STUDY: Abdominal ultrasound 05/12/2025, CT abdomen and pelvis 04/04/2024 FINDINGS: Moderate to extensive coronary artery calcifications. Clear lung bases. No pneumatosis or pneumoperitoneum. The spleen is again mildly enlarged measuring 14.4 cm. Unremarkable pancreas and adrenal glands. Cholecystectomy. Marginal nodularity of the liver compatible with cirrhosis is again seen. Probable hepatic steatosis. Patent portal vein. No liver lesions are seen. Bilateral perinephric stranding is again noted. 2.1 x 1.97 m exophytic hypodense lesion of the inferior pole right kidney on image 191 demonstrates Hounsfield unit of 23, suggestive of a mildly complex cyst. No hydronephrosis. Brachii therapy seeds of the mildly enlarged prostate. Urinary bladder wall thickening. Atherosclerosis of the aorta. Subcentimeter retroperitoneal lymph nodes. Moderate circumferential distal esophageal wall thickening has progressed from prior. Esophageal varicosities are noted. Trace abdominopelvic ascites. Circumferential wall thickening of the rectosigmoid is similar to prior. Colonic diverticulosis without definite evidence of acute diverticulitis. Moderate colonic fecal retention. Normal appendix. Unremarkable soft tissues. No acute fr acture. IMPRESSION: 1. Cirrhosis with stigmata of portal venous hypertension including splenomegaly with trace ascites and dinorah-esophageal varicosities. 2. Moderate wall thickening of the distal esophagus may represent esophagitis. Correlate clinically. 3. Mild wall thickening of the rectosigmoid and be secondary to partial distention versus a mild nonspecific proctocolitis. 4. Colonic diverticulosis without acute diverticulitis. ACT 112: Negative or not required by law. The above report was generated using voice recognition software. It may contain grammatical, syntax or spelling errors. Electronically signed by: Neil Orta M.D. 05/25/2025 1:28 PM Hospital Course (1) Hematemesis: (2) Acute blood loss anemia: (3) Upper GI bleed: (4) Esophageal varices determined by endoscopy: (5) Liver cirrhosis: Plan In summary this is a 64-year-old male who presented with acute onset hematemesis and coffee-ground emesis subsequently admitted for stabilization and further evaluation by gastroenterology. #Acute blood loss anemia secondary to upper gastrointestinal hemorrhage // Hepatic cirrhosis secondary to alcohol use disorder in sustained remission Patient presented with sudden onset hematemesis and abdominal pain; pertinent risk factors include alcohol use disorder in sustained remission with established hepatic cirrhosis with previously visualized grade 3 varices; admitted to ICU on now s/p 2 U PRBC with hemoglobin trend 10.3, 11.1, 11.2; EGD 05/23 revealed multiple red whale signs with subsequent banding performed in addition to congestive gastropathy; transferred out of the ICU on 05/24 Continue pantoprazole 40 mg IV every 12 hours--will transition to PO BID x14 days upon dc and then once daily in AM after first 2 weeks Continue octreotide 50 mcg per hour gtt which was discontinued 05/24 Discontinued ceftriaxone 05/24 Gastroenterology followed throughout hospitalization - H&H stable, no further bouts of hematemesis - Pt had c/o abd pain on 05/25, had CTAP, noted inflammation in rectosigmoid colon and esophagus, pt was placed on CLD following procedure and for 48 hours afterward. Diet advanced on 05/26 and he tolerated well. No further episodes of abd pain, n/v. He has had bowel movements and feel that they are becoming normal again. - Started on Coreg 3.125mg BID by GI for portal HTN #Type II diabetes mellitus with hyperglycemia and peripheral neuropathy - Most recent hemoglobin A1c of 9.4% obtained 04/2025; glycemic target of less than 180 for all checks considering the current critical illness; - pharmacy consulted for assistance with glucose management, started insulin gtt overnight 05/23 #Panic attack/anxiety/depression - Continue pristiq, buspar, remeron and will order hydroxyzine 50mg TID PRN - Given dose of lorazepam 0.5mg PO x1 on 05/26 - Per med rec, continues on Clonidine 0.1mg TID prn anxiety, but pt weaned himself off of this - Requires close f/u with psych at discharge to discuss medications/management #Cardiac abnormality/pause - RN reported pt had 3.9 sec pause on monitor on 05/26 around 0725, pt laying in bed, ?sleeping, asymptomatic - Discussed with patient that this is likely benign, however, he should discuss with and follow up with his primary candy decorator, Dr. Santana in [place] to determine if further work up is warranted. He is on Coreg which is a newer medication for him and did discuss that this could be contributing and can increase likelihood of heart block; however, currently the benefits outweigh risks. Can discuss further btw GI and cardio. #Wheezing - ?remote h/o asthma per pt - Given a duoneb x1 on 05/26 - No hypoxia, no edema c/f volume overload, no cough or fever c/f pna Patient is medically and hemodynamically stable for discharge home with outpatient follow up with all subspecialties including GI, psych, cardiology as well as PCP. Plan of care has been d/w Dr. Brooks who is in agreement with aforementioned. Total time for discharge: 40 minutes Coding Level of Care Code 15502 INP/OBS DISCH >30 MIN Diagnoses Hematemesis with nausea K92.0 Nausea presence: with nausea Acute blood loss anemia D62 Upper GI bleed K92.2 Esophageal varices determined by endoscopy I85.00 Alcoholic cirrhosis of liver without ascites K70.30 Ascites presence: without ascites Hepatic cirrhosis type: alcoholic cirrhosis
[2025-05-27 11:15] VITALS: BP 122/68
== END 2025-05-27 12:01 | disposition home or self-care (01) | DRG 432 ==
LOC: ED 03:03 → SUATTDRO 04:30 → 1E 04:30 → 2N 05-24 14:03

== ENCOUNTER 2025-05-30 22:43 | Observation (INO) ==
--- NOTE | 2025-05-30 22:58 | Emergency Department Note ---
History of Present Illness General Chief complaint: Dizziness Stated complaint: DIZZINESS Time Seen by Provider: 05/30/25 22:48 History of Present Illness This 64-year-old male with past medical history including sigmoid diverticulitis, lower GI bleeding, thrombocytopenia, diabetes mellitus, splenomegaly, portal hypertension, liver cirrhosis, history of alcohol dependence, esophageal varices, major depression, seizure disorder, and hypertension who was recently admitted for upper GI bleeding and had esophageal banding presents back to the ER complaining of headache, lightheadedness, abdominal pain and nausea who feels like he is bleeding again. Patient denies chest pain, dyspnea, fevers, vomiting, diarrhea, black or blood in stool. No alcohol for the past 3 years. Home Medications Medication Instructions Recorded Confirmed Type epinephrine 0.3 mg/0.3 mL 0.3 mg IM DIRECTED PRN Allergic 03/21/19 05/31/25 History injection, auto-injector (EpiPen) Reaction buspirone 30 mg tablet 30 mg PO BID 03/08/21 05/31/25 History rosuvastatin 40 mg tablet 40 mg PO QPM 04/18/21 05/31/25 History hydroxyzine HCl 50 mg tablet 50 mg PO TID PRN Anxiety 08/17/21 05/31/25 History desvenlafaxine succinate 100 mg 100 mg PO QAM 05/30/23 05/31/25 History tablet,extended release 24 hr melatonin 10 mg tablet 10 mg PO HS 04/05/24 05/31/25 History empagliflozin 25 mg tablet 25 mg PO QAM #30 tabs 01/26/25 05/31/25 Rx (Jardiance) blood sugar diagnostic (OneTouch #100 ea 01/29/25 05/31/25 Rx Verio test strips) lancets 33 gauge (OneTouch Delica #100 ea 01/29/25 05/31/25 Rx Plus Lancet) ropinirole 0.5 mg tablet 0.5 mg PO QPM 90 days #90 tabs 02/01/25 05/31/25 Rx icosapent ethyl 1 gram capsule 2 g (2 x 1 gram) PO BID #360 caps 02/17/25 05/31/25 Rx (Vascepa) metformin 1,000 mg tablet 1,000 mg PO BID #180 tabs 03/09/25 05/31/25 Rx carvedilol 3.125 mg tablet 3.125 mg PO BID #180 tabs 05/13/25 05/31/25 Rx mirtazapine 30 mg tablet 37.5 mg PO HS 05/13/25 05/31/25 History sitagliptin phosphate 50 mg tablet 50 mg PO DAILY #30 tabs 05/13/25 05/31/25 Rx (Januvia) clonidine HCl 0.1 mg tablet 0.1 mg PO TID PRN Anxiety 05/23/25 05/31/25 History pantoprazole 40 mg tablet,delayed 40 mg PO BID 30 days #60 tabs 05/27/25 05/31/25 Rx release (Protonix) Allergies Allergy/AdvReac Type Severity Reaction Status Date / Time bee venom protein (honey bee) Allergy Severe ANAPHYLAXIS Verified 03/12/25 10:05 cat dander Allergy Unknown Itchy/Watery Verified 03/12/25 10:05 Eyes, Itchy throat tamsulosin Allergy Unknown Hives Verified 03/12/25 10:05 Past Med/Surg History Problem List (Updated 05/31/25 @ 00:45 by Jessie Ballard PA-C) Dizziness (Acute) History of GI bleed (Acute) Weakness (Acute) Abdominal pain Hematemesis Acute blood loss anemia (Acute) Upper GI bleed (Acute) Diabetes mellitus with hyperglycemia (Chronic) Esophageal varices determined by endoscopy (Chronic) Liver cirrhosis Splenomegaly (Chronic) Word finding difficulty (Chronic) Vitamin B12 deficiency (Chronic) RLS (restless legs syndrome) (Chronic) Seizure disorder (Chronic) Diverticulosis (Chronic) Medical History (Updated 05/31/25 @ 00:45 by Jessie Ballard PA-C) Hypertension Hyperlipidemia Major depression, recurrent Anxiety Portal hypertension H/O traumatic subdural hematoma History of colon polyps x3 in remote hx , since clear. History of brachytherapy Anxiety medication and counseling for. History of prostate cancer (2016) hx brachytherapy and external beam radiation. History of TIA (transient ischemic attack) x2 in past when heavily drinking approx 2012/no residuals. H/O traumatic subdural hematoma very small per pt approx 2014 History of seizure approx 2014 x2 "alcohol related" - continues to follow Dr. Hooks yearly. Restless leg syndrome Dr Hooks yearly. 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 unknown if current. Stenosis of right carotid artery <50 %. yearly checks. Dr. Loera/[facility]. History of diverticulitis summer 2023 last flare & hospitalized [facility]. was on clopidogrel at that time and was d/c'd since this stay. History of diabetic ulcer of foot Diabetes medication and counseling for. Panic attacks controlled with medication. Depression Prostate cancer (07/30/16) Surgical History History of endoscopy upper History of urologic surgery to look in bladder when prostate ca tx completed. History of colonoscopy History of carotid endarterectomy left History of cholecystectomy ~1999 History of repair of ACL left Family History Father , Mother age 56 of colon cancer Colorectal cancer 56 yrs old when Mother , the age 78 of a blood clot Clotting disorder Dementia Daughter Family history of reaction to anesthesia nausea Other Cancer Social History Smoking Status: Current some day smoker Tobacco Type: Cigars Age Started Using Tobacco: 43; packs per day: 0.25; Cigarettes Per Day: 1-2 cigars/day; Second Hand Exposure: No; Do You Dip or Chew Tobacco: No; Hx Alcohol Use: No Hx Substance Use: No Preferred Language: Bengali Communication Ability: Effective Visual Impairment: No Limitations Hearing Ability: Normal Chairman Emeritus Required: No Beliefs That Will Affect Care: None marital status: Current Living Situation: Spouse current occupational status: retired 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 [employer] Feels Safe at Home: Yes Diet: regular caffeine: Yes during the past year weight has: remained stable Dental Care, Regularly: No Physical Activity Frequency: Daily Physical Activity Frequency Comment: walks daily if he can Seatbelt Use: always Sunscreen Use: Yes Assistive Devices: None Review of Systems A total of 10 systems reviewed and were otherwise negative Physical Exam Vital Signs Vital Signs - 24 hr 05/30/25 22:48 05/30/25 22:48 05/30/25 22:51 Temperature 36.9 C Temperature Source Oral Pulse Rate 78 78 Respiratory Rate 18 Respiratory Effort / Characteristics Non-Labored Spontaneous Respiratory Depth Normal Respiratory Pattern Regular Blood Pressure 132/71 Blood Pressure Mean 91 Pulse Oximetry 97 96 Oxygen Delivery Method Room Air Room Air Sepsis Recent Fever Within 48 Hours No Sepsis New/Unexplained Change in Mental Status N/A Sepsis Action Taken by Nursing No Action Required 05/30/25 22:54 05/30/25 23:00 05/30/25 23:21 Temperature Temperature Source Pulse Rate 75 74 Respiratory Rate 14 12 Respiratory Effort / Characteristics Respiratory Depth Respiratory Pattern Blood Pressure 127/69 115/63 Blood Pressure Mean 88 80 Pulse Oximetry 97 95 98 Oxygen Delivery Method Room Air Sepsis Recent Fever Within 48 Hours Sepsis New/Unexplained Change in Mental Status Sepsis Action Taken by Nursing 05/30/25 23:30 05/31/25 00:00 05/31/25 00:15 Temperature Temperature Source Pulse Rate 76 72 72 Respiratory Rate 21 14 15 Respiratory Effort / Characteristics Respiratory Depth Respiratory Pattern Blood Pressure 117/71 117/68 121/71 Blood Pressure Mean 81 94 87 Pulse Oximetry 98 96 96 Oxygen Delivery Method Sepsis Recent Fever Within 48 Hours Sepsis New/Unexplained Change in Mental Status Sepsis Action Taken by Nursing 05/31/25 00:30 05/31/25 00:54 Temperature Temperature Source Pulse Rate 74 76 Respiratory Rate 22 19 Respiratory Effort / Characteristics Respiratory Depth Respiratory Pattern Blood Pressure 117/72 132/76 Blood Pressure Mean 91 94 Pulse Oximetry 95 95 Oxygen Delivery Method Sepsis Recent Fever Within 48 Hours Sepsis New/Unexplained Change in Mental Status Sepsis Action Taken by Nursing VITALS: Vitals are noted on the nurse's note and reviewed by myself. Vital signs stable. GENERAL: Pleasant patient with family present, in no acute distress, nondiaphoretic, well-developed well-nourished. SKIN: The skin was without rashes, erythema, edema, or bruising. There is no tenting of the skin. Capillary reflex less than 2 seconds. HEAD: Normocephalic atraumatic. EARS: External auditory canals clear EYES: Pupils equal round and reactive to light and accommodation. Conjunctivae without injection, sclerae without icterus. Extraocular movements intact. NOSE: Patent, no discharge. MOUTH: Mucous membranes moist. Pharynx without erythema or exudate. Uvula midline. Airway patent. Tongue does not deviate. NECK: Supple without nuchal rigidity. No lymphadenopathy. No thyromegaly. Cervical spine is nontender. No JVD. HEART: Regular rate and rhythm LUNGS: Clear to auscultation bilaterally without wheezes, rales or rhonchi. No retractions or accessory muscle use. ABDOMEN: Positive bowel sounds x 4. Normal tympanic percussion. Soft, tender epigastric region, without masses or organomegaly. Zendejas sign negative. No guarding or rebound tenderness. No CVA tenderness MUSCULOSKELETAL: No muscle atrophy, erythema, or edema noted. NEURO: Patient was alert and oriented to person place and time. Normal sensation to light and sharp touch. No focal neurological deficits. Course Administered Medications Discontinued Medications Sodium Chloride (Nss) 500 mls @ 999 mls/hr IV .Q31M LESLEE Stop: 05/30/25 23:30 Last Infusion: 05/31/25 00:29 Dose: Infused Documented By: Admin: 05/30/25 23:19 Dose: 999 mls/hr Documented By: JUANCHO Famotidine (Pepcid 20mg Iv Push) 20 mg in 5 mls @ 2.5 mls/min IV NOW STA Stop: 05/30/25 22:53 Last Admin: 05/30/25 23:19 Dose: 2.5 mls/min Documented By: JUANCHO Pantoprazole Sodium 80 mg/ (Dextrose) 120 mls @ 480 mls/hr IV ONE STA Stop: 05/30/25 23:06 Last Infusion: 05/31/25 00:29 Dose: Infused Documented By: Admin: 05/31/25 00:08 Dose: 480 mls/hr Documented By: JUANCHO Ioversol (Optiray 320 125ml) 125 ml IV ONCE ONE Stop: 05/30/25 23:10 Last Admin: 05/30/25 23:10 Dose: 118 ml Documented By: CLEM Ondansetron HCl (Ondansetron Inj 2 Mg/Ml 2 Ml Vial) 4 mg IV ONE STA Stop: 05/30/25 22:53 Last Admin: 05/30/25 23:19 Dose: 4 mg Documented By: JUANCHO Medical Decision Making Medical Records Attestation: I reviewed the patient's medical records. Home Medications Current Medication List: was personally reviewed by me Laboratory Data Attestation: I reviewed the patient's lab results. 05/30/25 22:56 05/30/25 22:56 Lab Results 05/30/25 05/30/25 05/30/25 Range/Units 22:56 22:58 23:01 WBC 6.09 (4.8-10.8) K/ul RBC 3.34 L (4.70-6.10) M/uL Hgb 9.7 L (14.0-18.0) g/dl POC Hgb 9.5 L (14.0-18.0) g/dl Hct 28.0 L (42.0-52.0) % POC Hct 28 L (42-52) % MCV 83.8 (80.0-100.0) fL MCH 29.0 (25.0-34.0) pg MCHC 34.6 (32.0-36.0) g/dL RDW Std Deviation 43.6 (36.4-46.3) fL RDW Coeff of Antonio 14.4 (11.5-14.5) % Plt Count 113 L (130-400) K/uL MPV 10.8 (9.4-12.4) fL Immature Gran % (Auto) 0.8 % Neut % (Auto) 69.4 % Lymph % (Auto) 13.5 % Stewart % (Auto) 11.2 % Eos % (Auto) 4.6 % Baso % (Auto) 0.5 % Neut # (Auto) 4.23 (1.40-6.50) K/uL Lymph # (Auto) 0.82 L (1.20-3.40) K/uL Stewart # (Auto) 0.68 H (0.11-0.59) K/uL Eos # (Auto) 0.28 (0.00-0.50) K/uL Baso # (Auto) 0.03 (0.00-0.20) K/uL Immature Gran # (Auto) 0.05 (0.01-0.20) K/uL PT 10.3 (9.0-12.0) Seconds INR 0.9 (0.9-1.1) APTT 25 (21-31) Seconds PTT Ratio 0.9 POC Sodium 138 (135-144) mmol/L Sodium 135 L (136-145) mmol/L POC Potassium 3.6 (3.3-5.0) mmol/L Potassium 3.5 (3.5-5.1) mmol/L POC Chloride 104 (101-112) mmol/L Chloride 104 (98-107) mmol/L Carbon Dioxide 22 (21-32) mmol/L POC Total CO2 21 L (24-31) mmol/L Anion Gap 9 (3-11) POC Anion Gap 18.0 (16-25) mmol/L POC BUN 9 (7-18) mg/dl BUN 11 (6-23) mg/dl Creatinine 0.89 (0.6-1.4) mg/dl POC Creatinine 0.8 (0.6-1.3) mg/dl Est Cr Clr Drug Dosing 108.0 ml/min eGFR 94.51 BUN/Creatinine Ratio 12.4 (10-20) Glucose 225 H (70-99(Fasting)) mg/dl POC Glucose (other) 226 H (70-99) mg/dl Calcium 8.3 L (8.6-10.3) mg/dl POC Ioniz Calcium Kathy 1.14 (1.12-1.32) mmol/l Magnesium 1.8 (1.7-2.4) mg/dl Total Bilirubin 0.4 (0.2-1.0) mg/dl AST 33 (13-39) U/L ALT 33 (7-52) U/L Alkaline Phosphatase 77 (34-104) U/L Troponin I High Sens 5.8 (0-20) pg/ml Total Protein 7.0 (6.0-8.3) gm/dl Albumin 3.5 (3.4-5.0) gm/dl Globulin 3.5 (2.5-4.0) gm/dl Albumin/Globulin Ratio 1.0 (0.9-2) Lipase 61 (11-82) U/L Ethyl Alcohol mg/dL < 10.0 (<10.0) mg/dl Imaging Data Attestation: I personally reviewed and interpreted this imaging study as follows: Radiologist's Impression: Abdomen/Pelvis CT 05/30/25 22:52 CT of the abdomen pelvis with contrast Technique: Postcontrast axial images of the abdomen pelvis. Coronal and sagittal reformatted images made available for review No comparison Findings: Postoperative changes prior cholecystectomy. Trace intra-abdominal ascites. Hepatosplenomegaly Diverticulosis without evidence diverticulitis. Distended urinary bladder. Normal-appearing appendix. No free air or intestinal obstruction. Remaining solid abdominal organs are unremarkable in appearance. There are few hyperemic fluid-filled loops of small bowel within the right lower quadrant. Impression Moderate intra-abdominal ascites Diverticulosis without evidence of diverticulitis Mild enteritis Hepatosplenomegaly. Technique: Postcontrast axial images of the chest. Coronal and sagittal reformatted images made available for review Electronically signed by Stanislav Vila 05-31-2025 12:05 AM Chest CTA 05/30/25 22:52 CT angiogram of the chest No comparison Findings: The exam w is suboptimal for the evaluation of the pulmonary arteries. Thoracic aorta is unremarkable. Coronary artery calcification. Please see separate dictation for details the intra-abdominal contents. Lungs are clear without focal infiltrates or effusions. No lobar consolidations. No mediastinal, hilar, or axillary lymphadenopathy. Bone windows demonstrate no focal abnormality Impression Exam is nondiagnostic for the presence or absence of pulmonary embolus. The study was optimized for peak opacification within the thoracic aorta. Thoracic aorta is unremarkable No acute pulmonary pathology Electronically signed by Stanislav Vila 05-31-2025 12:05 AM Chest X-Ray 05/30/25 22:52 EXAM: XR chest 1V portable CLINICAL HISTORY: GI bleed. TECHNIQUE: X-ray image of the chest was obtained in frontal projection. COMPARISON: Correlation was made to the prior X-ray dated May 23, 2025. The CT dated May 30, 2025, was also reviewed. FINDINGS: Pulmonary Parenchyma: Bilateral lower zonal atelectatic bands. Bilateral central small rounded pulmonary densities (no corresponding pulmonary nodules in the CT). No evidence of consolidation, collapse, or cavitary lesions. No evidence of pleural effusion or pleural thickening. Heart and Mediastinum: Heart size and shape are normal. No mediastinal widening or masses. Bony Thorax: Bony thorax appears intact without fractures or deformities. Soft Tissues: Soft tissues overlying the chest wall are unremarkable. IMPRESSION: - No acute cardiopulmonary abnormalities identified. - Bilateral lower zonal atelectatic bands. - Bilateral central small rounded pulmonary densities (no corresponding pulmonary nodules in the CT), likely represent end-on vessels. - No significant interval changes. Electronically signed by Hector Connelly 05-31-2025 01:[address] 05/30/25 22:52 CT of the head without contrast Technique: Noncontrast axial images of the head. Coronal/sagittal reformatted images made available for review No comparison Findings: No acute intracranial hemorrhage. No acute transcortical infarct. Bone windows demonstrate no focal abnormality. No midline shift. Ventricles, sulci, cisterns within normal limits. Impression Head CT negative for acute intracranial abnormality. Electronically signed by Stanislav Vila 05-30-2025 11:50 PM MDM Narrative Prior records/ancillary studies reviewed and summarized above. Nursing notes reviewed. Additional history obtained from family. The patient's history was concerning for headache, dizziness, abdominal pain in a patient with a recent GI bleed. Differential diagnosis: Etiologies such as GI bleed, metabolic, infection, hypo/hyperglycemia, electrolyte abnormalities, cardiac sources, intracerebral event, toxicologic, neurologic, as well as others were entertained. Physical examination: As above. ER treatment provided: IV Lock An order was placed for continuous cardiac monitoring. The monitor shows a rate of 60-100 with a sinus rhythm per my interpretation. Zofran, Pepcid, Protonix, IV fluids, 2 lines Patient was consented to blood if warranted and this was placed in the chart On reassessment the patient felt better. Diagnostics interpretation by me: ECG: Ordered for weakness EKG: Normal sinus, right bundle, no acute ST-T wave changes, rate of 78. Impression normal sinus rhythm with a right bundle branch block independently interpreted by myself The labs Independently Interpreted by myself revealed stable H&H per chart review. Negative alcohol. Mild hyperglycemia without DKA Type and screen was sent Imaging studies: Imaging was reviewed and read by radiology Consultation: A consultation was placed with the hospitalist. The case was discussed and diagnostics were reviewed. The patient was evaluated in the ER for further treatment. Exam and history seem consistent with weakness, lightheadedness and upset stomach with recent GI bleed. Imaging was reviewed and read by radiology. No intracranial hemorrhage. Other scans were unchanged from prior. Patient still felt quite weak. Medicine was consulted case discussed. He will be evaluated for admission. Patient is agreeable. By the evaluation outlined above emergent etiologies such as infection, electrolyte abnormalities, cardiac sources, intracerebral event, toxologic, metabolic, as well as others were deemed relatively unlikely. The pt informed about the findings as listed above. All questions were answered and pleased with the treatment. The chart was completed utilizing [employer] voice recognition software. Grammatical errors, random word insertions, pronoun errors, and incomplete sentences are an occassional consequence of this system due to software limitations, ambient noise, and hardware issues. Any formal questions or concerns about the content, text, or information contained within the body of this dictation should be directly addressed to the physician autopsy assistant for clarification. Impression & Plan Weakness, History of GI bleed, Dizziness Discharge Plan Visit Data Chief Complaint: Dizziness Stated Complaint: DIZZINESS ED Provider: Anne Marie Cottrell ED Midlevel Provider: Jessie Ballard Discharge Problem: Weakness, History of GI bleed, Dizziness Patient Disposition: Admitted As Inpatient Condition: Fair Forms Stand Alone Forms: [facility] [employer] Prescriptions Prescriptions: No Action Jardiance 25 mg tablet 25 mg PO QAM Qty: 30 0RF (DME) OneTouch Verio test strips Strip See Rx Instructions .Route Qty: 100 0RF Rx Instructions: TEST BSG ONCE DAILY; DX CODE- E11.9 (DME) lancets [OneTouch Delica Plus Lancet] 33 gauge misc See Rx Instructions .Route Qty: 100 0RF Rx Instructions: TEST BSG ONCE DAILY; DX CODE- E11.9 ropinirole 0.5 mg tablet 0.5 mg PO QPM 90 Days Qty: 90 3RF icosapent ethyl [Vascepa] 1 gram capsule 2 g PO BID Qty: 360 1RF metformin 1,000 mg tablet 1,000 mg PO BID Qty: 180 1RF desvenlafaxine succinate 100 mg tablet extended release 24 hr 100 mg PO QAM rosuvastatin 40 mg tablet 40 mg PO QPM Januvia 50 mg tablet 50 mg PO DAILY Qty: 30 2RF carvedilol 3.125 mg tablet 3.125 mg PO BID Qty: 180 3RF Rx Instructions: must administer with a meal/food epinephrine [EpiPen] 0.3 mg/0.3 mL Auto-Injector 0.3 mg IM DIRECTED PRN (Reason: Allergic Reaction) hydroxyzine HCl 50 mg Tablet 50 mg PO TID PRN (Reason: Anxiety) Rx Instructions: NOON,PM OR HS mirtazapine 30 mg tablet 37.5 mg PO HS buspirone 30 mg tablet 30 mg PO BID Rx Instructions: TAKES AT NOON AND 6 PM melatonin 10 mg Tablet 10 mg PO HS clonidine HCl 0.1 mg tablet 0.1 mg PO TID PRN (Reason: Anxiety) pantoprazole [Protonix] 40 mg tablet,delayed release (DR/EC) 40 mg PO BID 30 Days Qty: 60 0RF Rx Instructions: Take one tab by mouth twice a day x14 days then reduce dose to once daily Referrals Referrals: Wesley Gray DO [Primary Care Provider] -
[2025-05-30] MEDS: OPTIRAY 320 125ml IV ONE (23:10)
[2025-05-30 23:11] LABS: Hematocrit (blood only) 28.0 % (42.0-52.0); Hemoglobin 9.7 g/dl (14.0-18.0); Immature Granulocytes # (auto) 0.05 K/uL (0.01-0.20); Immature Granulocytes % (auto) 0.8 %; Mean Corpuscular Hemoglobin 29.0 pg (25.0-34.0); Mean Corpuscular Volume 83.8 fL (80.0-100.0); Platelet Count 113 K/uL (130-400); RDW Standard Deviation 43.6 fL (36.4-46.3); Red Blood Count 3.34 M/uL (4.70-6.10); White Blood Count 6.09 K/ul (4.8-10.8)
[2025-05-30] MEDS: ONDANSETRON INJ 2 MG/ML 2 ML VIAL IV STA (23:19)
[2025-05-30] MEDS: SODIUM CHLORIDE 0.9% 500 ML IV SCH (23:19)
[2025-05-30] MEDS: FAMOTIDINE 20MG IV PUSH 20 MG/5 ML SYR IV STA (23:19)
[2025-05-30 23:27] LABS: Alanine Aminotransferase 33.0 U/L (7-52); Albumin Globulin Ratio 1.0 (0.9-2); Alkaline Phosphatase 77.0 U/L (34-104); Anion Gap 9.0 (3-11); Bilirubin,Total 0.4 mg/dl (0.2-1.0); Blood Urea Nitrogen 11.0 mg/dl (6-23); Calcium 8.3 mg/dl (8.6-10.3); Carbon Dioxide 22.0 mmol/L (21-32); Chloride 104.0 mmol/L (98-107); Creatinine Clr Calc Pharmacy 108.0 ml/min; Globulin 3.5 gm/dl (2.5-4.0); Glucose 225.0 mg/dl (70-99(Fasting)); Lipase 61.0 U/L (11-82); Magnesium 1.8 mg/dl (1.7-2.4); Potassium 3.5 mmol/L (3.5-5.1); Sodium 135.0 mmol/L (136-145); Total Protein 7.0 gm/dl (6.0-8.3)
--- NOTE | 2025-05-30 23:51 | CT Scan Report ---
CT of the head without contrast Technique: Noncontrast axial images of the head. Coronal/sagittal reformatted images made available for review No comparison Findings: No acute intracranial hemorrhage. No acute transcortical infarct. Bone windows demonstrate no focal abnormality. No midline shift. Ventricles, sulci, cisterns within normal limits. Impression Head CT negative for acute intracranial abnormality. Electronically signed by Stanislav Vila 05-30-2025 11:50 PM
--- NOTE | 2025-05-31 00:05 | CT Scan Report ---
CT of the abdomen pelvis with contrast Technique: Postcontrast axial images of the abdomen pelvis. Coronal and sagittal reformatted images made available for review No comparison Findings: Postoperative changes prior cholecystectomy. Trace intra-abdominal ascites. Hepatosplenomegaly Diverticulosis without evidence diverticulitis. Distended urinary bladder. Normal-appearing appendix. No free air or intestinal obstruction. Remaining solid abdominal organs are unremarkable in appearance. There are few hyperemic fluid-filled loops of small bowel within the right lower quadrant. Impression Moderate intra-abdominal ascites Diverticulosis without evidence of diverticulitis Mild enteritis Hepatosplenomegaly. Technique: Postcontrast axial images of the chest. Coronal and sagittal reformatted images made available for review Electronically signed by Stanislav Vila 05-31-2025 12:05 AM
--- NOTE | 2025-05-31 00:06 | CT Scan Report ---
CT angiogram of the chest No comparison Findings: The exam w is suboptimal for the evaluation of the pulmonary arteries. Thoracic aorta is unremarkable. Coronary artery calcification. Please see separate dictation for details the intra-abdominal contents. Lungs are clear without focal infiltrates or effusions. No lobar consolidations. No mediastinal, hilar, or axillary lymphadenopathy. Bone windows demonstrate no focal abnormality Impression Exam is nondiagnostic for the presence or absence of pulmonary embolus. The study was optimized for peak opacification within the thoracic aorta. Thoracic aorta is unremarkable No acute pulmonary pathology Electronically signed by Stanislav Vila 05-31-2025 12:05 AM
[2025-05-31 00:11] LABS: INR 0.9 (0.9-1.1); Partial Thromboplastin Time 25 Seconds (21-31); Prothrombin Time 10.3 Seconds (9.0-12.0)
--- NOTE | 2025-05-31 00:44 | Emergency Department Note ---
ED Visit Note I was consulted by the Advanced Practice Provider. I personally made/approved the management plan and take responsibility for the patient management. This includes the aspects of: -History/Physical -MDM
--- NOTE | 2025-05-31 01:28 | XRay Report ---
EXAM: XR chest 1V portable CLINICAL HISTORY: GI bleed. TECHNIQUE: X-ray image of the chest was obtained in frontal projection. COMPARISON: Correlation was made to the prior X-ray dated May 23, 2025. The CT dated May 30, 2025, was also reviewed. FINDINGS: Pulmonary Parenchyma: Bilateral lower zonal atelectatic bands. Bilateral central small rounded pulmonary densities (no corresponding pulmonary nodules in the CT). No evidence of consolidation, collapse, or cavitary lesions. No evidence of pleural effusion or pleural thickening. Heart and Mediastinum: Heart size and shape are normal. No mediastinal widening or masses. Bony Thorax: Bony thorax appears intact without fractures or deformities. Soft Tissues: Soft tissues overlying the chest wall are unremarkable. IMPRESSION: - No acute cardiopulmonary abnormalities identified. - Bilateral lower zonal atelectatic bands. - Bilateral central small rounded pulmonary densities (no corresponding pulmonary nodules in the CT), likely represent end-on vessels. - No significant interval changes. Electronically signed by Hector Connelly 05-31-2025 01:27 AM
--- NOTE | 2025-05-31 01:33 | History & Physical Report ---
Date of Service May 31, 2025 Assessment & Plan (1) History of GI bleed: (2) Abdominal pain: (3) Liver cirrhosis: (4) Splenomegaly: (5) RLS (restless legs syndrome): (6) Seizure disorder: (7) Ascites due to alcoholic cirrhosis: (8) Acute blood loss anemia: (9) Hypokalemia: Plan 64 yo male PMHx EtOH cirrhosis, hepatosplenomegaly, portal HTN, esophageal varices, thrombocytopenia, EtOH use disorder in sustained remission, diverticulitis, low GI bleed, JENNIFER/MDD, seizure disorder, T2DM admitted with STOREY, dizziness, abdominal pain, and nausea. #Abdominal Pain/Distention/Recent UGIB Does not shows signs of active bleed at this time Hemoccult pending though may be positive regardless due to recent bleed CT indicates increase in size ascites, otherwise without acute changes IR paracentesis ordered - PT/INR/platelets appropriate Is on beta andrew carvedilol continue Start spironolactone 25mg qAM Electrolyte repletion ordered - Lasix ordered for am Monitor closely for signs of re-bleeding - transfusion threshold Hb 7 or less Type and screen Continue pantoprazole 40mg BID GI consult placed - appreciate assistance #T2DM Continue Jardiance Metformin held Most recent A1c 8.4 Lantus 10 ISS Goal 110-140 CF 40, CR 13 #Mental Health/RLS Continue home meds: Buspar 30mg BID Clonidine 0.1mg TID PRN Desvenlafaxine 100mg daily Vistiril 50mg TID PRN Melatonin HS Mirtazapine 30mg HS Ropinirole 0.5 mg qPM #HLD Continue Crestor 40mg Hold Vascepa - non formulary FENGI: NPO with sips for meds Code status: full code DVT prophylaxis: scd, defer chemical in setting of recent UGIB Isolation: none Disposition: PCU History of Present Illness Primary Care Provider: Wesley Gray, DO 64 yo male PMHx EtOH cirrhosis, hepatosplenomegaly, portal HTN, esophageal varices, thrombocytopenia, EtOH use disorder in sustained remission, diverticulitis, low GI bleed, MDD, seizure disorder, T2DM admitted with STOREY, dizziness, abdominal pain, and nausea. Was recently admitted for UGIB found to have bleeding varices and received 6 bands endoscopically. States he went home and felt generally well until this afternoon/evening. Developed dizziness, lightheadedness, nausea and abdominal pain. Has noticed that his abdomen is more distended than usual - feels bloated. Has not had any CP, SOB, fever. He has not vomited. Stools are without melena or hematochezia. Remains alcohol free and has been for 3 years. Reports that he has been taking his Protonix 40mg BID since discharge and had 2 doses on 05/30/25. ED course: VSS Labs remarkable for stable hemoglobin since discharge 3 days ago, platelets low normal, hypokalemia, PT/INR wnl. Trop and lipase are negative. Type and screen ordered CT head, chest, abdomen without acute changes. Previously ascites described as trace, now described as moderate. Rec'd Pepcid, Protonix, Zofran and 500cc NSS. Given 2g ceftriaxone. Hemoccult ordered and awaiting collection Allergies Allergy/AdvReac Type Severity Reaction Status Date / Time bee venom protein (honey bee) Allergy Severe ANAPHYLAXIS Verified 03/12/25 10:05 cat dander Allergy Unknown Itchy/Watery Verified 03/12/25 10:05 Eyes, Itchy throat tamsulosin Allergy Unknown Hives Verified 03/12/25 10:05 Home Medications Medication Instructions Recorded Confirmed Type epinephrine 0.3 mg/0.3 mL 0.3 mg IM DIRECTED PRN Allergic 03/21/19 05/31/25 History injection, auto-injector (EpiPen) Reaction buspirone 30 mg tablet 30 mg PO BID 03/08/21 05/31/25 History rosuvastatin 40 mg tablet 40 mg PO QPM 04/18/21 05/31/25 History hydroxyzine HCl 50 mg tablet 50 mg PO TID PRN Anxiety 08/17/21 05/31/25 History desvenlafaxine succinate 100 mg 100 mg PO QAM 05/30/23 05/31/25 History tablet,extended release 24 hr melatonin 10 mg tablet 10 mg PO HS 04/05/24 05/31/25 History empagliflozin 25 mg tablet 25 mg PO QAM #30 tabs 01/26/25 05/31/25 Rx (Jardiance) blood sugar diagnostic (ZuberanceTouch #100 ea 01/29/25 05/31/25 Rx Verio test strips) lancets 33 gauge (OneTouch Delica #100 ea 01/29/25 05/31/25 Rx Plus Lancet) ropinirole 0.5 mg tablet 0.5 mg PO QPM 90 days #90 tabs 02/01/25 05/31/25 Rx icosapent ethyl 1 gram capsule 2 g (2 x 1 gram) PO BID #360 caps 02/17/25 05/31/25 Rx (Vascepa) metformin 1,000 mg tablet 1,000 mg PO BID #180 tabs 03/09/25 05/31/25 Rx carvedilol 3.125 mg tablet 3.125 mg PO BID #180 tabs 05/13/25 05/31/25 Rx mirtazapine 30 mg tablet 37.5 mg PO HS 05/13/25 05/31/25 History sitagliptin phosphate 50 mg tablet 50 mg PO DAILY #30 tabs 05/13/25 05/31/25 Rx (Januvia) clonidine HCl 0.1 mg tablet 0.1 mg PO TID PRN Anxiety 05/23/25 05/31/25 History pantoprazole 40 mg tablet,delayed 40 mg PO BID 30 days #60 tabs 05/27/25 05/31/25 Rx release (Protonix) Past Med/Surg History Problem List (Updated 05/31/25 @ 01:49 by Ayo Walls DO) Ascites due to alcoholic cirrhosis Dizziness (Acute) History of GI bleed (Acute) Weakness (Acute) Abdominal pain Hematemesis Acute blood loss anemia (Acute) Upper GI bleed (Acute) Diabetes mellitus with hyperglycemia (Chronic) Esophageal varices determined by endoscopy (Chronic) Liver cirrhosis Splenomegaly (Chronic) Word finding difficulty (Chronic) Vitamin B12 deficiency (Chronic) RLS (restless legs syndrome) (Chronic) Seizure disorder (Chronic) Diverticulosis (Chronic) Medical History (Updated 05/31/25 @ 01:49 by Ayo Walls DO) Hypertension Hyperlipidemia Major depression, recurrent Anxiety Portal hypertension H/O traumatic subdural hematoma History of colon polyps x3 in remote hx , since clear. History of brachytherapy Anxiety medication and counseling for. History of prostate cancer (2016) hx brachytherapy and external beam radiation. History of TIA (transient ischemic attack) x2 in past when heavily drinking approx 2012/no residuals. H/O traumatic subdural hematoma very small per pt approx 2014 History of seizure approx 2014 x2 "alcohol related" - continues to follow Dr. Hooks yearly. Restless leg syndrome Dr Hooks yearly. 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 unknown if current. Stenosis of right carotid artery <50 %. yearly checks. Dr. Loera/[facility]. History of diverticulitis summer 2023 last flare & hospitalized [facility]. was on clopidogrel at that time and was d/c'd since this stay. History of diabetic ulcer of foot Diabetes medication and counseling for. Panic attacks controlled with medication. Depression Prostate cancer (07/30/16) Surgical History History of endoscopy upper History of urologic surgery to look in bladder when prostate ca tx completed. History of colonoscopy History of carotid endarterectomy left History of cholecystectomy ~1999 History of repair of ACL left Family History Father , Mother age 56 of colon cancer Colorectal cancer 56 yrs old when Mother , the age 78 of a blood clot Clotting disorder Dementia Daughter Family history of reaction to anesthesia nausea Other Cancer Social History Smoking Status: Current some day smoker Tobacco Type: Cigars Age Started Using Tobacco: 43; packs per day: 0.25; Cigarettes Per Day: 1-2 cigars/day; Second Hand Exposure: No; Do You Dip or Chew Tobacco: No; Hx Alcohol Use: No Hx Substance Use: No Preferred Language: Mongolian Communication Ability: Effective Visual Impairment: No Limitations Hearing Ability: Normal Washroom Attendant Required: No Beliefs That Will Affect Care: None marital status: Current Living Situation: Spouse current occupational status: retired 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 [employer] Feels Safe at Home: Yes Diet: regular caffeine: Yes during the past year weight has: remained stable Dental Care, Regularly: No Physical Activity Frequency: Daily Physical Activity Frequency Comment: walks daily if he can Seatbelt Use: always Sunscreen Use: Yes Assistive Devices: None Review of Systems Review of Systems: reviewed, per HPI Physical Exam Physical Exam: Constitutional: well-appearing, no acute distress HEENT: NCAT, no conjunctival injection CV: regular rhythm, no murmur appreciated, extremities well-perfused, +trace to 1+ edema Resp: CTABL, no wheezes/rales/rhonchi appreciated, no increased work of breathing GI: soft, +distended, +fluid wave, +diffuse mild/moderate tenderness without rebound or guarding. MSK: no gross deformities appreciated Skin: warm, dry, no rash appreciated Neuro: alert, oriented, no focal neurologic deficit appreciated Results & Data Results & Data Vital Signs (Past 12 Hours) Vital Signs Temp Pulse Resp BP Pulse Ox O2 Del Method 05/31/25 00:54 76 19 132/76 95 05/31/25 00:30 74 22 117/72 95 05/31/25 00:15 72 15 121/71 96 05/31/25 00:00 72 14 117/68 96 05/30/25 23:30 76 21 117/71 98 05/30/25 23:21 74 12 115/63 98 05/30/25 23:00 75 14 127/69 95 05/30/25 22:54 97 Room Air 05/30/25 22:51 78 05/30/25 22:48 96 Room Air 05/30/25 22:48 36.9 C 78 18 132/71 97 Room Air Supervising Physician Co-Signing Physician Notes Attending addendum: I have physically seen this patient, have supervised the medical residents activities, and agree with the H&P unless as otherwise noted. Assessment and Plan: The patient is a 64-year-old male with past medical history including alcoholic cirrhosis, hepatosplenomegaly, portal hypertension, bleeding esophageal varices with 6 bands performed during hospitalization from 05/23-05/27/25, thrombocytopenia, alcohol use disorder in sustained remission, diverticulitis, lower GI bleed, JENNIFER/MDD, seizure disorder, and diabetes mellitus type 2. The patient presents to the emergency department with symptoms of dizziness, abdominal pain and nausea. He has not noted coffee-ground emesis or hematemesis, as occurred during recent admission. Abdominal pain/distention/recent upper GI bleed- Admit to telemetry unit CT scan of abdomen and pelvis notes moderate ascites, which is a new finding, and otherwise findings as before. Consult IR for paracentesis Continue carvedilol Start spironolactone 25 mg every morning Start furosemide in the a.m. after potassium and magnesium replaced via IV fluid Type and screen Continue pantoprazole 40 mg p.o. twice daily Suspect his symptoms may be secondary to increasing ascites and abdominal distention Consult gastroenterology Diabetes mellitus type 2- Hold metformin Lantus and ISS as noted Hold Jardiance until GI status determined Mental health/RLS- Continue usual home medications BuSpar, desvenlafaxine, Vistaril, melatonin, mirtazapine, ropinirole, and clonidine 3 times daily as needed Hyperlipidemia- Continue Crestor Holding for supplement due to nonformulary status Resident Activity Tracking Resident Involvement: Resident Care Provided Care Provided: Adult Hospital Medicine (3) Liver cirrhosis Ascites presence: without ascites Hepatic cirrhosis type: alcoholic cirrhosis Qualified Code(s): K70.30 - Alcoholic cirrhosis of liver without ascites
[2025-05-31] MEDS: cefTRIAXone SODIUM 2,000 MG/50 ML BAG IV STA (02:04)
[2025-05-31] MEDS: POTASSIUM CHLORIDE CRTAB 20 MEQ TABCR PO STA (02:05)
[2025-05-31] MEDS: MIRTAZAPINE TAB 15 MG TAB PO STA (02:27)
[2025-05-31] MEDS: busPIRone 15 MG TAB PO STA (02:28)
[2025-05-31] MEDS: MELATONIN 3 MG TAB PO STA (02:28)
[2025-05-31] MEDS: MAGNESIUM SULFATE / D5W 1 GM/100 ML BAG IV STA (02:31)
--- NOTE | 2025-05-31 03:34 | Billing Data ---
Date of Service May 31, 2025 Coding Level of Care Code 75116 INT INP/OBS CARE
[2025-05-31] MEDS ORDERED: POLYETHYLENE (MIRALAX) 17 GM PACK PO PRN (05:43)
[2025-05-31] MEDS ORDERED: ONDANSETRON INJ 2 MG/ML 2 ML VIAL IV PRN (05:43)
[2025-05-31] MEDS ORDERED: MAGNESIUM HYDROXIDE SUSP 30 ML UDC PO PRN (05:43)
[2025-05-31] MEDS ORDERED: ALUMINUM/MAGNESIUM SUSP 30 ML UDC PO PRN (05:43)
[2025-05-31] MEDS ORDERED: MELATONIN 3 MG TAB PO PRN (05:49)
--- NOTE | 2025-05-31 08:29 | Electrocardiogram Report ---
Test Reason : Blood Pressure : */* mmHG Vent. Rate : 78 BPM Atrial Rate : 78 BPM P-R Int : 150 ms QRS Dur : 132 ms QT Int : 436 ms P-R-T Axes : 43 27 10 degrees QTcB Int : 497 ms Normal sinus rhythm Right bundle branch block Abnormal ECG When compared with ECG of 23-May-2025 03:08, Premature ventricular complexes are no longer Present Criteria for Inferior infarct are no longer Present T wave inversion now evident in Anterior leads Confirmed by Linda Turcios (Diamante) on 05/31/2025 8:29:19 AM Referred By: REFERRED SELF Confirmed By: Linda Turcios
[2025-05-31] MEDS: FUROSEMIDE INJ 20 MG/2 ML VIAL IV SCH (08:43)
[2025-05-31] MEDS: SPIRONOLACTONE 25 MG TAB PO SCH (08:43)
[2025-05-31] MEDS: busPIRone 15 MG TAB PO SCH (08:44)
--- NOTE | 2025-05-31 09:07 | Gastrointestinal Consultation ---
Date of Consultation May 31, 2025 Assessment & Plan (1) Ascites due to alcoholic cirrhosis: (2) History of GI bleed: (3) Abdominal pain: Plan [id number] with h/o alcohol cirrhosis with ascites and recent GI bleeding with esophageal banding is seen in hospital for increased abdominal girth and abdominal pain. (1) Abdominal pain and increased abdominal girth likely 2/2 ascites. No evidence of - No s/s of active bleeding at this time. Continue to monitor H/H and for s/s of GI bleeding - Agree with Pantoprazole as prescribed by primary team - Agree with paracentesis, Lasix and Spironolactone as ordered. - Further recommendations to come with results of diuresis and paracentesis. - Further recommendations to come with Supervising GI provider on medical rounds. Please see co-signature comments. Supervising Physician Co-Signing Physician Notes Gentleman with cirrhosis felt to be related to alcohol. Endoscopy back in February 2025 showed grade 2 varices. He was seen by hepatology was placed on Coreg. He Jeffry presented in May 23 with variceal bleeding he is post banding x 6. He was discharged a day or 2 prior to readmission came in feeling weak somewhat dizzy and orthostatic without obvious gastrointestinal bleeding. His counts are stable. He did receive antibiotics for 5 to 6 days post bleeding. He does not currently have an elevated white count or temperature. He was sent for paracentesis though there was an adequate amount of fluid to allow ultrasound paracentesis. He is feeling somewhat improved. Recommend continued observation. Discharge in 1 to 2-day in the absence of clinical deterioration. Follow-up esophageal banding in 2 to 4 weeks. History of Present Illness Reason for Consultation: recent GI bleed with varceal banding Requesting Physician: Dr. Brooks Attending Physician: Isatu Brooks MD History of Present Illness 64 yo male PMHx EtOH cirrhosis, hepatosplenomegaly, portal HTN, esophageal varices, thrombocytopenia, EtOH use disorder in sustained remission, diverticulitis, low GI bleed, JENNIFER/MDD, seizure disorder, T2DM admitted with STOREY, dizziness, abdominal pain, and nausea is seen today on GI rounds for concerns of repeat bleeding. He was recently admitted a couple weeks ago to [facility] for bleeding where he underwent EGD with esophageal banding. He returned to ER on 05/30/25 with headache, lightheadedness, abdominal pain and nausea who feels like he is bleeding again. Patient denies chest pain, dyspnea, fevers, vomiting, diarrhea, black or blood in stool. No alcohol for the past [address] abd/pelvis did not reveal and obvious source of bleeding but did reveal increased ascites. Otherwise no acute changes. Hgb 05/23/25 was 9.9g/dl with 9.5g/dl Patient is already on carvedilol and Pantoprazole 40mg BID. Started on Spironolactone 25mg QD and lasix 20mg/day. IR consulted for paracentesis. He reports that he's noted that he was very lightheaded and felt like he couldn't take a deep breath. He also noted increased abdominal girth with abdominal discomfort for a few minutes after eating. Lying his comfortable. He denies any fevers, chills, N/V/D, melena or hematochezia. Abd/Pelvis CT 05/30/25 Impression Moderate intra-abdominal ascites Diverticulosis without evidence of diverticulitis Mild enteritis Hepatosplenomegaly. EGD Dr. Castaneda Findings: - Grade II varices with red ian signs were found in the lower third of the esophagus and in the middle third of the esophagus. Six bands were successfully placed. There was no bleeding at the end of the maneuver. - Mild portal hypertensive gastropathy was found in the entire examined stomach. - The examined duodenum was normal. Impression: - Grade II esophageal varices. Banded. - Portal hypertensive gastropathy. - Normal examined duodenum. - No specimens collected. Allergies Allergy/AdvReac Type Severity Reaction Status Date / Time bee venom protein (honey bee) Allergy Severe ANAPHYLAXIS Verified 03/12/25 10:05 cat dander Allergy Unknown Itchy/Watery Verified 03/12/25 10:05 Eyes, Itchy throat tamsulosin Allergy Unknown Hives Verified 03/12/25 10:05 Home Medications Medication Instructions Recorded Confirmed Type epinephrine 0.3 mg/0.3 mL 0.3 mg IM DIRECTED PRN Allergic 03/21/19 05/31/25 History injection, auto-injector (EpiPen) Reaction buspirone 30 mg tablet 30 mg PO BID 03/08/21 05/31/25 History rosuvastatin 40 mg tablet 40 mg PO QPM 04/18/21 05/31/25 History hydroxyzine HCl 50 mg tablet 50 mg PO TID PRN Anxiety 08/17/21 05/31/25 History desvenlafaxine succinate 100 mg 100 mg PO QAM 05/30/23 05/31/25 History tablet,extended release 24 hr melatonin 10 mg tablet 10 mg PO HS 04/05/24 05/31/25 History empagliflozin 25 mg tablet 25 mg PO QAM #30 tabs 01/26/25 05/31/25 Rx (Jardiance) blood sugar diagnostic (OneTouch #100 ea 01/29/25 05/31/25 Rx Verio test strips) lancets 33 gauge (OneTouch Delica #100 ea 01/29/25 05/31/25 Rx Plus Lancet) ropinirole 0.5 mg tablet 0.5 mg PO QPM 90 days #90 tabs 02/01/25 05/31/25 Rx icosapent ethyl 1 gram capsule 2 g (2 x 1 gram) PO BID #360 caps 02/17/25 05/31/25 Rx (Vascepa) metformin 1,000 mg tablet 1,000 mg PO BID #180 tabs 03/09/25 05/31/25 Rx carvedilol 3.125 mg tablet 3.125 mg PO BID #180 tabs 05/13/25 05/31/25 Rx mirtazapine 30 mg tablet 37.5 mg PO HS 05/13/25 05/31/25 History sitagliptin phosphate 50 mg tablet 50 mg PO DAILY #30 tabs 05/13/25 05/31/25 Rx (Januvia) clonidine HCl 0.1 mg tablet 0.1 mg PO TID PRN Anxiety 05/23/25 05/31/25 History pantoprazole 40 mg tablet,delayed 40 mg PO BID 30 days #60 tabs 05/27/25 05/31/25 Rx release (Protonix) Patient History Medical History (Updated 05/31/25 @ 01:49 by Ayo Walls DO) Hypertension Hyperlipidemia Major depression, recurrent Anxiety Portal hypertension H/O traumatic subdural hematoma History of colon polyps x3 in remote hx , since clear. History of brachytherapy Anxiety medication and counseling for. History of prostate cancer (2015) hx brachytherapy and external beam radiation. History of TIA (transient ischemic attack) x2 in past when heavily drinking approx 2012/no residuals. H/O traumatic subdural hematoma very small per pt approx 2015 History of seizure approx 2015 x2 "alcohol related" - continues to follow Dr. Hooks yearly. Restless leg syndrome Dr Hooks yearly. 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 unknown if current. Stenosis of right carotid artery <50 %. yearly checks. Dr. Loera/[facility]. History of diverticulitis summer 2023 last flare & hospitalized [facility]. was on clopidogrel at that time and was d/c'd since this stay. History of diabetic ulcer of foot Diabetes medication and counseling for. Panic attacks controlled with medication. Depression Prostate cancer (07/30/16) Surgical History History of endoscopy upper History of urologic surgery to look in bladder when prostate ca tx completed. History of colonoscopy History of carotid endarterectomy left History of cholecystectomy ~1999 History of repair of ACL left Family History Father , Mother age 56 of colon cancer Colorectal cancer 54 yrs old when Mother , the age 78 of a blood clot Clotting disorder Dementia Daughter Family history of reaction to anesthesia nausea Other Cancer Social History Smoking Status: Current every day smoker Tobacco Type: Cigarettes and Cigars Age Started Using Tobacco: 43; packs per day: 0.25; Cigarettes Per Day: 1/4 pack cigs, 1-2 cigars; Second Hand Exposure: No; Do You Dip or Chew Tobacco: No; Hx Alcohol Use: No Hx Substance Use: No Preferred Language: Libyan Communication Ability: Effective Visual Impairment: No Limitations Hearing Ability: Normal Assistant Customer Service Manager Required: No Beliefs That Will Affect Care: None marital status: Current Living Situation: Spouse current occupational status: retired 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 Alert. Answering questions appropriately. Respiratory: Breathing is even, non-labored. Lungs rivero are clear to auscultation anteriorly. Cardiovascular: Regular Rate and Rhythm, no murmurs, rubs or gallops appreciated. Gastrointestinal (Abdomen): Normoactive bowel sounds x4, soft, mildly distended with + Ascities. Mild generalized tenderness without rebound tenderness. Musculoskeletal: Lying in bed comfortably. No peripheral edema. Results & Data Vital Signs (Past 12 Hours) Vital Signs Temp Pulse Pulse Resp BP BP Pulse Ox 05/31/25 07:35 69 05/31/25 07:13 97.9 F 63 18 100/61 94 05/31/25 05:44 98.2 F 68 16 101/61 94 05/31/25 05:43 05/31/25 04:46 05/31/25 04:30 94 05/31/25 04:00 75 116/63 93 05/31/25 03:36 72 17 94 05/31/25 03:18 72 17 95 05/31/25 03:04 74 05/31/25 03:00 115/59 L 05/31/25 02:54 72 17 95 05/31/25 02:30 72 18 96 05/31/25 02:00 66 16 110/64 95 05/31/25 01:30 70 21 124/75 95 05/31/25 01:15 69 19 127/65 97 05/31/25 00:54 76 19 132/76 95 05/31/25 00:30 74 22 117/72 95 05/31/25 00:15 72 15 121/71 96 05/31/25 00:00 72 14 117/68 96 05/30/25 23:30 76 21 117/71 98 05/30/25 23:21 74 12 115/63 98 05/30/25 23:00 75 14 127/69 95 05/30/25 22:54 97 05/30/25 22:51 78 05/30/25 22:48 96 05/30/25 22:48 98.4 F 78 18 132/71 97 Pulse Ox O2 Del Method O2 Del Method 05/31/25 07:35 05/31/25 07:13 Room Air 05/31/25 05:44 Room Air 05/31/25 05:43 94 Room Air 05/31/25 04:46 Room Air 05/31/25 04:30 05/31/25 04:00 Room Air 05/31/25 03:36 05/31/25 03:18 05/31/25 03:04 05/31/25 03:00 05/31/25 02:54 05/31/25 02:30 Room Air 05/31/25 02:00 Room Air 05/31/25 01:30 05/31/25 01:15 05/31/25 00:54 05/31/25 00:30 05/31/25 00:15 05/31/25 00:00 05/30/25 23:30 05/30/25 23:21 05/30/25 23:00 05/30/25 22:54 Room Air 05/30/25 22:51 05/30/25 22:48 Room Air 05/30/25 22:48 Room Air PG Care Time/CCT Total # of Minutes Spent Total Time Spent with Patient: Total time spent is greater than 50% in coordination of care (as documented) at patient's floor/unit and/or counseling patient: Coding Level of Care Code 05949 IN/OBS CONSULT LVL 3,45M Diagnoses Ascites due to alcoholic cirrhosis K70.31 History of GI bleed Z87.19 Abdominal pain R10.9
[2025-05-31] MEDS: EMPAGLIFLOZIN 25 MG TAB PO SCH (09:56)
--- NOTE | 2025-05-31 09:58 | Hospitalist Progress Note ---
"Date of Service May 31, 2025 Assessment & Plan (1) Ascites due to alcoholic cirrhosis: (2) Abdominal pain: (3) History of GI bleed: Plan 64 yo male PMHx EtOH cirrhosis, hepatosplenomegaly, portal HTN, esophageal varices, thrombocytopenia, EtOH use disorder in sustained remission, diverticulitis, low GI bleed, JENNIFER/MDD, seizure disorder, T2DM admitted with STOREY, dizziness, abdominal pain, and nausea. Recent hospital admission here from 05/23 - 05/27 for acute onset hematemesis and had EGD with banding performed. CT A/P on recent admission with trace ascites, imaging this admission described as moderate ascites. He was admitted for IR paracentesis and GI evaluation. #Moderate Ascites | Abdominal Pain/Distention | Recent UGIB - CT indicates increase in size ascites, otherwise without acute changes. Does not shows signs of active bleed at this time. - Hemoccult pending though may be positive regardless due to recent bleed - S/p 1 dose IV Ceftriaxone (empiric coverage for SPB) - Was taken down for IR paracentesis, but abdominal ultrasound performed which noted no ascites to perform paracentesis. Will continue with diuretics - Started/continued on spironolactone 25mg qAM - Started/continued on Lasix 20 mg IV qAM - monitor volume status/electrolytes - Continue pantoprazole 40mg BID - GI consult placed - appreciate assistance - Monitor closely for signs of re-bleeding - transfusion threshold Hgb 7 or less #T2DM - Most recent A1c 8.3% - Metformin held - Continue Jardiance - Started Lantus and SSI - Pharmacy glycemic management consulted #HLD - Continue Crestor 40mg - Hold Vascepa - non formulary #Hypertension - Continue carvedilol 2.125 mg BID #Mental Health | RLS - Continue home meds: Buspar 30mg BID, Clonidine 0.1mg TID PRN, Desvenlafaxine 100mg daily, Vistiril 50mg TID PRN, Melatonin 9 mg HS, Mirtazapine 30mg HS, Ropinirole 0.5 mg qPM DVT prophylaxis: SCDs, defer chemical in setting of recent UGIB Disposition: Anticipate discharge home in next 24-48 hours Started Lantus + SSI Consulted pharmacy for glycemic management Admission and Anticipated Discharge Date Admission Date: May 31, 2025 Subjective Patient seen and evaluated at bedside. He reports ongoing abdominal discomfort. This is more uncomfortable after eating or drinking. Denies change in pain/discomfort with position. Denies melena or bright red blood with stools. He denies dizziness at this time. We discussed that IR and GI have been consulted to assist in his care. Hopefully IR is able to take him down for paracentesis today. He denies any additional complaints or concerns at this time. Telemetry reviewed: NSR in 60s70s. Physical Exam Physical Exam: General: No acute distress, nondiaphoretic, well-developed, well-nourished. Skin: Warm, dry. No rashes or peripheral edema noted. Cardiac: Regular rate and rhythm without murmurs gallops or rubs. Pulm: Clear to auscultation bilaterally without wheezes, rales or rhonchi. Normal respiratory effort. 94% on room air. Abdominal: Soft. Distended secondary to ascites with + fluid wave. Mild diffuse tenderness to palpation without rebound or guarding. Bowel sounds present. Neuro: A&O x3. No focal neurological deficits. Results & Data Results & Data Vital Signs (Past 12 Hours) Vital Signs Temp Pulse Pulse Resp BP BP Pulse Ox 05/31/25 07:35 69 05/31/25 07:13 97.9 F 63 18 100/61 94 05/31/25 05:44 98.2 F 68 16 101/61 94 05/31/25 05:43 05/31/25 04:46 05/31/25 04:30 94 05/31/25 04:00 75 116/63 93 05/31/25 03:36 72 17 94 05/31/25 03:18 72 17 95 05/31/25 03:04 74 05/31/25 03:00 115/59 L 05/31/25 02:54 72 17 95 05/31/25 02:30 72 18 96 05/31/25 02:00 66 16 110/64 95 05/31/25 01:30 70 21 124/75 95 05/31/25 01:15 69 19 127/65 97 05/31/25 00:54 76 19 132/76 95 05/31/25 00:30 74 22 117/72 95 05/31/25 00:15 72 15 121/71 96 05/31/25 00:00 72 14 117/68 96 05/30/25 23:30 76 21 117/71 98 05/30/25 23:21 74 12 115/63 98 05/30/25 23:00 75 14 127/69 95 05/30/25 22:54 97 05/30/25 22:51 78 05/30/25 22:48 96 05/30/25 22:48 98.4 F 78 18 132/71 97 Pulse Ox O2 Del Method O2 Del Method 05/31/25 07:35 05/31/25 07:13 Room Air 05/31/25 05:44 Room Air 05/31/25 05:43 94 Room Air 05/31/25 04:46 Room Air 05/31/25 04:30 05/31/25 04:00 Room Air 05/31/25 03:36 05/31/25 03:18 05/31/25 03:04 05/31/25 03:00 05/31/25 02:54 05/31/25 02:30 Room Air 05/31/25 02:00 Room Air 05/31/25 01:30 05/31/25 01:15 05/31/25 00:54 05/31/25 00:30 05/31/25 00:15 05/31/25 00:00 05/30/25 23:30 05/30/25 23:21 05/30/25 23:00 05/30/25 22:54 Room Air 05/30/25 22:51 05/30/25 22:48 Room Air 05/30/25 22:48 Room Air Laboratory Results Reviewed CBC with differential Reviewed CMP, chemistries Diagnostic Findings Reviewed CT A/P, chest CTA, CXR, head CT, EKG PG Care Time/CCT Total # of Minutes Spent Total Time Spent with Patient: Total time spent is greater than 50% in coordination of care (as documented) at patient's floor/unit and/or counseling patient: Coding Level of Care Code 41516 SUB INP/OBS CARE 3/50MIN Diagnoses Ascites due to alcoholic cirrhosis K70.31 Abdominal pain R10.9 History of GI bleed Z87.19"
[2025-05-31] MEDS ORDERED: GLUCOSE 40% GEL 15 GM TUBE PO PRN (12:17)
[2025-05-31] MEDS ORDERED: DEXTROSE 50% 50 ML SYRINGE IV PRN (12:17)
[2025-05-31] MEDS ORDERED: CARBOHYDRATES FOR HYPOGLYCEMIA PO PRN (12:17)
[2025-05-31] MEDS ORDERED: GLUCAGON FOR INJ 1 MG VIAL SQ PRN (12:17)
[2025-05-31] MEDS ORDERED: PHARMACY GLYCEMIC MGMT CONSULT PRN (12:17)
[2025-05-31] MEDS ORDERED: GLUCOSE 10 TAB/TUBE PO PRN (12:17)
[2025-05-31] MEDS: INSULIN ASPART PER UNIT CHARGE SC SCH (12:58)
[2025-05-31] MEDS: LANTUS PER UNIT CHARGE SC ONE (13:04)
--- NOTE | 2025-05-31 14:42 | Ultrasound Report ---
LIMITED ABDOMINAL ULTRASOUND INDICATION: Paracentesis requested FINDINGS: Ultrasound imaging in all 4 abdominal quadrants was performed. No ascites was identified. N o paracentesis was performed. IMPRESSION: No ascites noted to perform paracentesis. Performed, dictated, and signed by Chriss Brand PA-C; to be co-signed by Dr. Gaudencio Tellez. Electronically signed by: Gaudencio Tellez M.D. 05/31/2025 4:16 PM
--- NOTE | 2025-05-31 15:08 | Pharmacy Report ---
Pharmacy Glycemic Short Note 2 - Date of Service May 31, 2025 - Glycemic Short BSG Results (Last 24 hours): 05/30/25 05/30/25 05/31/25 22:56 23:01 08:41 Glucose 225 H POC Glucose 151 H POC Glucose (other) 226 H 05/31/25 11:07 Glucose POC Glucose 261 H POC Glucose (other) OUTPATIENT ANTIDIABETIC REGIMEN: * Metformin 1000mg PO BID * Sitagliptin 50mg PO daily * Empagliflozin 25mg PO QAM HbA1c: 8.3% on 05/24/25 ASSESSMENT: * Gaudencio is a 64 year old male who was admitted today with abdominal pain, nausea, and dizziness. Of note, he was just discharged from this facility 05/26/25 after being treated for acute blood loss anemia secondary to an acute upper GI hemorrhage. Pharmacy was consulted for glycemic management while he is admitted. * BSG on admit was 151mg/dL and emili to 261mg/dL at lunch time. During previous admission, his BSG emili quickly and remained elevated so he ended up needing to be placed on an insulin drip. In order to prevent that this admission, data from last admission was used and a fairly aggressive glycemic regimen was started. PLAN FOR INPATIENT GLYCEMIC CONTROL: * Hold outpatient oral diabetes medications * Basal insulin * Lantus 20 units SQ x 1 today..Further dosing will be based on additional BSG readings * Bolus insulin * NovoLog per scale ACHS or Q6hrs while NPO * Goal Range: Low 110 mg/dL - High 160 mg/dL * Correction Factor: 25 mg/dL/unit * Nutritional / Prandial insulin per carb ratio of 1 unit per 8 grams CHO consumed
[2025-05-31] MEDS ORDERED: LANTUS PER UNIT CHARGE SQ SCH (21:00)
[2025-05-31] MEDS: MIRTAZAPINE TAB 15 MG TAB PO SCH (21:56)
[2025-05-31] MEDS: ROSUVASTATIN CALCIUM 20 MG TAB PO SCH (21:56)
[2025-06-01 07:26] LABS: Hematocrit (blood only) 28.6 % (42.0-52.0); Hemoglobin 9.5 g/dl (14.0-18.0); Immature Granulocytes # (auto) 0.03 K/uL (0.01-0.20); Immature Granulocytes % (auto) 0.7 %; Mean Corpuscular Hemoglobin 28.7 pg (25.0-34.0); Mean Corpuscular Volume 86.4 fL (80.0-100.0); Platelet Count 108 K/uL (130-400); RDW Standard Deviation 45.1 fL (36.4-46.3); Red Blood Count 3.31 M/uL (4.70-6.10); White Blood Count 4.07 K/ul (4.8-10.8)
[2025-06-01 07:47] LABS: Alanine Aminotransferase 25.0 U/L (7-52); Albumin Globulin Ratio 1.1 (0.9-2); Alkaline Phosphatase 57.0 U/L (34-104); Anion Gap 7.0 (3-11); Bilirubin,Total 0.4 mg/dl (0.2-1.0); Blood Urea Nitrogen 11.0 mg/dl (6-23); Calcium 8.5 mg/dl (8.6-10.3); Carbon Dioxide 25.0 mmol/L (21-32); Chloride 107.0 mmol/L (98-107); Creatinine Clr Calc Pharmacy 107.3 ml/min; Globulin 3.0 gm/dl (2.5-4.0); Glucose 105.0 mg/dl (70-99(Fasting)); Potassium 4.0 mmol/L (3.5-5.1); Sodium 139.0 mmol/L (136-145); Total Protein 6.4 gm/dl (6.0-8.3)
[2025-06-01 08:02] LABS: INR 0.9 (0.9-1.1); Lipase 41.0 U/L (11-82); Prothrombin Time 10.3 Seconds (9.0-12.0)
[2025-06-01 08:22] VITALS: BP 128/71; PULSE 70; RESP 20; TEMP 98.2; O2SAT 96
--- NOTE | 2025-06-01 10:43 | Gastroenterology Progress Note ---
Date of Service June 01, 2025 Assessment & Plan (1) Abdominal pain: Plan [id number] with h/o alcohol cirrhosis, last alcohol use 3 years ago, and recent GI bleeding with esophageal banding is seen in hospital for increased abdominal girth and abdominal pain. (1) Abdominal pain improving in severity. - Reviewed labs from this morning. Lipase, LFTs, BMP and H/H stable. No leukocytosis. - Patient tolerating diet as of this morning. - If abdominal pain returns may consider Hepatic vein US doppler. - Continue with Pantoprazole as prescribed by primary team - Continue with Lasix and Spironolactone as ordered. May need to titrate dose based on weight, labs and edema. Would recommend that he continue to follow up for his liver cirrhosis/diuretics as outpatient with [facility] - Further recommendations to come with Supervising GI provider on medical rounds. Please see co-signature comments Admission and Anticipated Discharge Date Admission Date: May 31, 2025 Subjective 64 yo male PMHx EtOH cirrhosis, hepatosplenomegaly, portal HTN, esophageal varices, thrombocytopenia, EtOH use disorder in sustained remission, diver ticulitis, low GI bleed, JENNIFER/MDD, seizure disorder, T2DM admitted with STOREY, dizziness, abdominal pain, and nausea is seen today on GI rounds for concerns of repeat bleeding. He was recently admitted a couple weeks ago to [facility] for bleeding where he underwent EGD with esophageal banding. He returned to ER on 05/30/25 with headache, lightheadedness, abdominal pain and nausea who feels like he is blee ding again. No alcohol for the past [address] abd/pelvis did not reveal and obvious source of bleeding but did reveal increased ascites. Otherwise no acute changes. Hgb 05/23/25 was 9.9g/dl with 9.5g /dl. Patient is already on carvedilol and Pantoprazole 40mg BID. Started on Spironolactone 25mg QD and Lasix 20mg/day. IR consulted for paracentesis. Abd US completed on 05/31/25 which was unable to reveal any ascites for collection. Today he reports that his abdominal pain is much improved. He ate without any issues this morning. Patient denies chest pain, dyspnea, fevers, vomiting, diarrhea, black or blood in stool. CBC 06/01/25 Hgb 9.5g/dl, Hct 28.6% Plt 108k/ul, WBC 4.07k/ul INR 0.9 Na 105, BUN 11, Cr 0.68 Cl 107, CO2 25, Na 139, K 4.0 T-Bili 0.4, AST 26, ALT 25, Alk Phos 57, Lipase 41. Abd US 05/31/25 FINDINGS: Ultrasound imaging in all 4 abdominal quadrants was performed. No ascites was identified. No paracentesis was performed. IMPRESSION: No ascites noted to perform paracentesis. Abd/Pelvis CT 05/30/25 Impression Moderate intra-abdominal ascites Diverticulosis without evidence of diverticulitis Mild enteritis Hepatosplenomegaly. EGD Dr. Castaneda Findings: - Grade II varices with red ian signs were found in the lower third of the esophagus and in the middle third of the esophagus. Six bands were successfully placed. There was no bleeding at the end of the maneuver. - Mild portal hypertensive gastropathy was found in the entire examined stomach. - The examined duodenum was normal. Impression: - Grade II esophageal varices. Banded. - Portal hypertensive gastropathy. - Normal examined duodenum. - No specimens collected. Review of Systems Review of Systems: See HPI Physical Exam Physical Exam: Constitutional: NAD. Alert. Answering questions appropriately. Respiratory: Breathing is even, non-labored. Lungs rivero are clear to auscultation anteriorly. Cardiovascular: Regular Rate and Rhythm, no murmurs, rubs or gallops appreciated. Gastrointestinal (Abdomen): Normoactive bowel sounds x4, soft, non-distended, non-tender. Musculoskeletal: Lying in bed comfortably. No peripheral edema. Results & Data Results & Data Vital Signs (Past 12 Hours) Vital Signs Temp Pulse Pulse Resp BP Pulse Ox O2 Del Method 06/01/25 08:00 98.2 F 70 20 128/71 96 Room Air 06/01/25 07:48 67 06/01/25 03:28 97.9 F 67 18 109/68 93 Room Air 05/31/25 23:01 98.1 F 67 18 111/73 95 Room Air PG Care Time/CCT Total # of Minutes Spent Total Time Spent with Patient: Total time spent is greater than 50% in coordination of care (as documented) at patient's floor/unit and/or counseling patient: Coding Level of Care Code 20633 SUB INP/OBS CARE 2/35MIN Diagnoses Abdominal pain R10.9
--- NOTE | 2025-06-01 11:44 | Pharmacy Report ---
Pharmacy Glycemic Short Note 2 - Date of Service June 01, 2025 - Glycemic Short BSG Results (Last 24 hours): 05/31/25 05/31/25 06/01/25 16:14 19:58 05:51 Glucose 105 H POC Glucose 150 H 158 H 06/01/25 06/01/25 07:27 11:24 Glucose POC Glucose 137 H 220 H OUTPATIENT ANTIDIABETIC REGIMEN: * Metformin 1000mg PO BID * Sitagliptin 50mg PO daily * Empagliflozin 25mg PO QAM HbA1c: 8.3% on 05/24/25 ASSESSMENT: 06/01 * Gaudencio received 41 units of SC insulin yesterday (20 units Lantus + 21 units Novolog) * Fasting BSG of 137 mg/dL is acceptable. Will continue basal dose of 20 units daily for now. * Post prandial BSGs are well controlled with the exception of lunch. Will tighten carb ratio slightly. 05/31 * Gaudencio is a 64 year old male who was admitted today with abdominal pain, nausea, and dizziness. Of note, he was just discharged from this facility 05/26/25 after being treated for acute blood loss anemia secondary to an acute upper GI hemorrhage. Pharmacy was consulted for glycemic management while he is admitted. * BSG on admit was 151mg/dL and emili to 261mg/dL at lunch time. During previous admission, his BSG emili quickly and remained elevated so he ended up needing to be placed on an insulin drip. In order to prevent that this admission, data from last admission was used and a fairly aggressive glycemic regimen was started. PLAN FOR INPATIENT GLYCEMIC CONTROL: * Hold outpatient oral diabetes medications * Basal insulin * Lantus 20 units SC daily * Bolus insulin * NovoLog per scale ACHS or Q6hrs while NPO * Goal Range: Low 110 mg/dL - High 160 mg/dL * Correction Factor: 25 mg/dL/unit * Nutritional / Prandial insulin per carb ratio of 1 unit per 7 grams CHO consumed
[2025-06-01] MEDS: LANTUS PER UNIT CHARGE SC SCH (12:03)
--- NOTE | 2025-06-01 14:39 | Discharge Summary ---
"Discharge Summary Date of Service June 01, 2025 Principal Dx & Hospital Course #1 = Principal Diagnosis (1) Ascites due to alcoholic cirrhosis: (2) Abdominal pain: (3) History of GI bleed: Plan 64 yo male PMHx EtOH cirrhosis, hepatosplenomegaly, portal HTN, esophageal varices, thrombocytopenia, EtOH use disorder in sustained remission, diverticulitis, low GI bleed, JENNIFER/MDD, seizure disorder, T2DM admitted with STOREY, dizziness, abdominal pain, and nausea. Recent hospital admission here from 05/23 - 05/27 for acute onset hematemesis and had EGD with banding performed. CT A/P on recent admission with trace ascites, imaging this admission described as moderate ascites. He was admitted for IR paracentesis and GI evaluation, but there was not enough fluid for paracentesis to be performed; instead treated with diuretics and improved. #Moderate Ascites | Abdominal Pain/Distention | Recent UGIB - CT indicates increase in size ascites, otherwise without acute changes. Does not shows signs of active bleed at this time. - S/p 1 dose IV Ceftriaxone (empiric coverage for SPB) - Was taken down for IR paracentesis, but abdominal ultrasound performed which noted no ascites to perform paracentesis. Instead treated with diuretics and he reported significant improvement in both abdominal pressure as well as diet tolerance - Started/continued on spironolactone 25mg qAM - Continue Lasix 20 mg QAM x 3-5 days, then continue on just spironolactone - Continue pantoprazole 40mg BID - GI consult placed - follow up with [facility]; patient requests to make his own follow-up appointment - Continue low sodium diet #T2DM - Most recent A1c 8.3% - Used Lantus and SSI while admitted, continue metformin and Jardiance on discharge #HLD - Continue Crestor and Vascepa #Hypertension - Continue carvedilol 2.125 mg BID #Mental Health | RLS - Continue home meds: Buspar 30mg BID, Clonidine 0.1mg TID PRN, Desvenlafaxine 100mg daily, Vistiril 50mg TID PRN, Melatonin 9 mg HS, Mirtazapine 30mg HS, Ropinirole 0.5 mg qPM DVT prophylaxis: SCDs, defer chemical in setting of recent UGIB Disposition: Discharged home 06/01 Notes For Next Care Provider Recommend follow-up/reestablishing [facility]. Monitor resolution of ascites with diuretics and adjust regimen as needed. Medication Changes From Visit Started spironolactone 25 mg daily Started Lasix 20 mg daily x 3-5 days Admission HPI Per Admitting Provider 64 yo male PMHx EtOH cirrhosis, hepatosplenomegaly, portal HTN, esophageal varices, thrombocytopenia, EtOH use disorder in sustained remission, diverticulitis, low GI bleed, MDD, seizure disorder, T2DM admitted with STOREY, dizziness, abdominal pain, and nausea. Was recently admitted for UGIB found to have bleeding varices and received 6 bands endoscopically. States he went home and felt generally well until this afternoon/evening. Developed dizziness, lightheadedness, nausea and abdominal pain. Has noticed that his abdomen is more distended than usual - feels bloated. Has not had any CP, SOB, fever. He has not vomited. Stools are without melena or hematochezia. Remains alcohol free and has been for 3 years. Reports that he has been taking his Protonix 40mg BID since discharge and had 2 doses on 05/30/25. ED course: VSS Labs remarkable for stable hemoglobin since discharge 3 days ago, platelets low normal, hypokalemia, PT/INR wnl. Trop and lipase are negative. Type and screen ordered CT head, chest, abdomen without acute changes. Previously ascites described as trace, now described as moderate. Rec'd Pepcid, Protonix, Zofran and 500cc NSS. Given 2g ceftriaxone. Hemoccult ordered and awaiting collection Discharge Exam General: No acute distress, nondiaphoretic, well-developed, well-nourished. Skin: Warm, dry. No rashes or peripheral edema noted. Cardiac: Regular rate and rhythm without murmurs gallops or rubs. Pulm: Clear to auscultation bilaterally without wheezes, rales or rhonchi. Normal respiratory effort. 96% on room air. Abdominal: Soft. Distended secondary to ascites with + fluid wave. Mild diffuse tenderness to palpation without rebound or guarding. Bowel sounds present. Neuro: A&O x3. No focal neurological deficits. Discharge Plan Discharge Items Patient Disposition: Home - Self-Care Reason For Visit: ABDOMINAL PAIN Discharge Diagnosis: Ascites Condition on Discharge: Fair Activity: Resume your previous activity Non-emergency contact: Primary Care Provider and [employer] Call non-emergency contact if: you have any medication questions and your symptoms worsen Follow-up/Referrals: Wesley Gray, [Primary Care Provider] - (Follow-up in 1-2 weeks as scheduled) Diet: Carb Consistent or DM2 and Low Sodium (2gm) Addtl Attending Provider Instructions: Gaudencio, You were admitted to the hospital due to abdominal pain and found to have ascites. Ascites is when fluid collects in the belly area and is caused by liver cirrhosis. Symptoms of ascites include swelling of your abdomen, feeling pressure in your abdomen, shortness of breath, and swelling in your lower extremities. The initial plan was for this to be removed via paracentesis, however after an abdominal ultrasound was performed, there was not enough fluid to perform a paracentesis. Instead, you were treated with diuretics and have improved. You were followed by the GI team while you were admitted. We recommend that you follow-up with [facility] in the outpatient setting. Upon discharge from the hospital: * Take Lasix 20 mg daily x 3-5 days. If you notice marked improvement in your abdominal distention, you can stop taking the Lasix. * Take spironolactone 25 mg daily. Continue taking this even when you are done taking the Lasix. This is a diuretic medication that will help remove the excess abdominal fluid (ascites) and hopefully prevent fluid from reaccumulating. * Continue your other home medications as prescribed. * Please follow-up with your PCP within 1-2 weeks. * Please follow-up with [facility]. You can call and schedule this follow-up appointment for a time that works best with your schedule. Please return to the hospital if you experience any of the following: Significant abdominal distention, sudden weight gain with increased size of your belly or leg swelling, increasing jaundice (yellowing of skin or eyes), excessive bleeding from cuts or injuries, blood in your vomit or stool (black or red in color), confusion, difficulty breathing, chest pain, passing out, or any other symptoms concerning for you. It was a pleasure taking care of you while you were in the hospital! Pending Studies at Discharge: No Stand-Alone Forms: [employer], Smoking Cessation Medications and DC Order Prescriptions: New spironolactone 25 mg Tablet 25 mg PO QAM Qty: 30 0RF furosemide [Lasix] 20 mg tablet 20 mg PO DAILY Qty: 5 0RF Continued Jardiance 25 mg tablet 25 mg PO QAM Qty: 30 0RF (DME) OneTouch Verio test strips Strip See Rx Instructions .Route Qty: 100 0RF Rx Instructions: TEST BSG ONCE DAILY; DX CODE- E11.9 (DME) lancets [OneTouch Delica Plus Lancet] 33 gauge misc See Rx Instructions .Route Qty: 100 0RF Rx Instructions: TEST BSG ONCE DAILY; DX CODE- E11.9 ropinirole 0.5 mg tablet 0.5 mg PO QPM 90 Days Qty: 90 3RF icosapent ethyl [Vascepa] 1 gram capsule 2 g PO BID Qty: 360 1RF metformin 1,000 mg tablet 1,000 mg PO BID Qty: 180 1RF desvenlafaxine succinate 100 mg tablet extended release 24 hr 100 mg PO QAM rosuvastatin 40 mg tablet 40 mg PO QPM Januvia 50 mg tablet 50 mg PO DAILY Qty: 30 2RF carvedilol 3.125 mg tablet 3.125 mg PO BID Qty: 180 3RF Rx Instructions: must administer with a meal/food epinephrine [EpiPen] 0.3 mg/0.3 mL Auto-Injector 0.3 mg IM DIRECTED PRN (Reason: Allergic Reaction) hydroxyzine HCl 50 mg Tablet 50 mg PO TID PRN (Reason: Anxiety) Rx Instructions: NOON,PM OR HS mirtazapine 30 mg tablet 37.5 mg PO HS buspirone 30 mg tablet 30 mg PO BID Rx Instructions: TAKES AT NOON AND 6 PM melatonin 10 mg Tablet 10 mg PO HS clonidine HCl 0.1 mg tablet 0.1 mg PO TID PRN (Reason: Anxiety) pantoprazole [Protonix] 40 mg tablet,delayed release (DR/EC) 40 mg PO BID 30 Days Qty: 60 0RF Rx Instructions: Take one tab by mouth twice a day x14 days then reduce dose to once daily Discharge Orders: Discharge Order (Routine); Ordered 06/01/25 Ordered By: Isatu Diego Admission Data Admit Date/Time: 05/31/25 03:23 Attending Provider: Isatu Brooks Admit Provider: Ayo Walls Primary Care Provider: Wesley Gray Other Providers: Arun Powell; Kenneth Rodriguez Other Interventions: Discharge Summary Assessment (RN) Last Done: 06/01/25 13:06 Hospital Stay Data Consultations 05/31/25 00:43 ED Decision to Admit Stat 05/31/25 05:43 Consult Gastroenterology Routine Diagnostic Imagining Performed Abdomen/Pelvis CT 05/30/25 22:52 CT of the abdomen pelvis with contrast Technique: Postcontrast axial images of the abdomen pelvis. Coronal and sagittal reformatted images made available for review No comparison Findings: Postoperative changes prior cholecystectomy. Trace intra-abdominal ascites. Hepatosplenomegaly Diverticulosis without evidence diverticulitis. Distended urinary bladder. Normal-appearing appendix. No free air or intestinal obstruction. Remaining solid abdominal organs are unremarkable in appearance. There are few hyperemic fluid-filled loops of small bowel within the right lower quadrant. Impression Moderate intra-abdominal ascites Diverticulosis without evidence of diverticulitis Mild enteritis Hepatosplenomegaly. Technique: Postcontrast axial images of the chest. Coronal and sagittal reformatted images made available for review Electronically signed by Stanislav Vila 05-31-2025 12:05 AM Chest CTA 05/30/25 22:52 CT angiogram of the chest No comparison Findings: The exam w is suboptimal for the evaluation of the pulmonary arteries. Thoracic aorta is unremarkable. Coronary artery calcification. Please see separate dictation for details the intra-abdominal contents. Lungs are clear without focal infiltrates or effusions. No lobar consolidations. No mediastinal, hilar, or axillary lymphadenopathy. Bone windows demonstrate no focal abnormality Impression Exam is nondiagnostic for the presence or absence of pulmonary embolus. The study was optimized for peak opacification within the thoracic aorta. Thoracic aorta is unremarkable No acute pulmonary pathology Electronically signed by Stanislav Vila 05-31-2025 12:05 AM Chest X-Ray 05/30/25 22:52 EXAM: XR chest 1V portable CLINICAL HISTORY: GI bleed. TECHNIQUE: X-ray image of the chest was obtained in frontal projection. COMPARISON: Correlation was made to the prior X-ray dated May 23, 2025. The CT dated May 30, 2025, was also reviewed. FINDINGS: Pulmonary Parenchyma: Bilateral lower zonal atelectatic bands. Bilateral central small rounded pulmonary densities (no corresponding pulmonary nodules in the CT). No evidence of consolidation, collapse, or cavitary lesions. No evidence of pleural effusion or pleural thickening. Heart and Mediastinum: Heart size and shape are normal. No mediastinal widening or masses. Bony Thorax: Bony thorax appears intact without fractures or deformities. Soft Tissues: Soft tissues overlying the chest wall are unremarkable. IMPRESSION: - No acute cardiopulmonary abnormalities identified. - Bilateral lower zonal atelectatic bands. - Bilateral central small rounded pulmonary densities (no corresponding pulmonary nodules in the CT), likely represent end-on vessels. - No significant interval changes. Electronically signed by Hector Connelly 05-31-2025 01:[address] 05/30/25 22:52 CT of the head without contrast Technique: Noncontrast axial images of the head. Coronal/sagittal reformatted images made available for review No comparison Findings: No acute intracranial hemorrhage. No acute transcortical infarct. Bone windows demonstrate no focal abnormality. No midline shift. Ventricles, sulci, cisterns within normal limits. Impression Head CT negative for acute intracranial abnormality. Electronically signed by Stanislav Vila 05-30-2025 11:50 PM Abdomen Ultrasound 05/31/25 00:00 LIMITED ABDOMINAL ULTRASOUND INDICATION: Paracentesis requested FINDINGS: Ultrasound imaging in all 4 abdominal quadrants was performed. No as cites was identified. No paracentesis was performed. IMPRESSION: No ascites noted to perform paracentesis. Performed, dictated, and signed by Chriss Brand PA-C; to be co-signed by Dr. Gaudencio Tellez. Electronically signed by: Gaudencio Tellez M.D. 05/31/2025 4:16 PM Pending Results Patient Have Any Pending Studies at Discharge: No Discharge Instructions Given to Patient (Per Discharging Provider) Eric Ratliff were admitted to the hospital due to abdominal pain and found to have ascites. Ascites is when fluid collects in the belly area and is caused by liver cirrhosis. Symptoms of ascites include swelling of your abdomen, feeling pressure in your abdomen, shortness of breath, and swelling in your lower extremities. The initial plan was for this to be removed via paracentesis, however after an abdominal ultrasound was performed, there was not enough fluid to perform a paracentesis. Instead, you were treated with diuretics and have improved. You were followed by the GI team while you were admitted. We recommend that you follow-up with [facility] in the outpatient setting. Upon discharge from the hospital: * Take Lasix 20 mg daily x 3-5 days. If you notice marked improvement in your abdominal distention, you can stop taking the Lasix. * Take spironolactone 25 mg daily. Continue taking this even when you are done taking the Lasix. This is a diuretic medication that will help remove the excess abdominal fluid (ascites) and hopefully prevent fluid from reaccumulating. * Continue your other home medications as prescribed. * Please follow-up with your PCP within 1-2 weeks. * Please follow-up with [facility]. You can call and schedule this follow-up appointment for a time that works best with your schedule. Please return to the hospital if you experience any of the following: Significant abdominal distention, sudden weight gain with increased size of your belly or leg swelling, increasing jaundice (yellowing of skin or eyes), excessive bleeding from cuts or injuries, blood in your vomit or stool (black or red in color), confusion, difficulty breathing, chest pain, passing out, or any other symptoms concerning for you. It was a pleasure taking care of you while you were in the hospital! Total Time Total Time Spent Total Time Spent (In Minutes): Greater than 30 minutes spent completing this discharge process including direct patient care, medication reconciliation, documentation, review of labs and images, and coordination of care. Coding Level of Care Code 41755 INP/OBS DISCH >30 MIN Diagnoses Ascites due to alcoholic cirrhosis K70.31 Abdominal pain R10.9 History of GI bleed Z87.19"
== END 2025-06-01 13:07 | disposition home or self-care (01) ==
LOC: ED 22:43 → SUATTDRO 05-31 03:23 → INTOOBSV 05-31 03:23 → EDINP 05-31 03:23 → 2S 05-31 04:46